=== PATIENT | male | born 1950 | race Caucasian/White ===

== ENCOUNTER → 2016-09-30 | Outpatient (CLI) | payer MEDICARE ==
--- NOTE | 2016-10-01 10:55 | ECHOF ---
Referral Reason:I95.1Orthostatic hypotension, R60.0 Edema MEASUREMENTS -------- HEIGHT: 170.2 cm WEIGHT: 83.9 kg BP: 183/107 IVSd: 1.1 cm (0.6 - 1.1) LVIDd: 4.4 cm (3.9 - 5.3) LVPWd: 1.3 cm (0.6 - 1.1) IVSs: 1.5 cm LVIDs: 2.0 cm LVPWs: 1.9 cm LAESV Index (A-L): 43.53 ml/m Ao Diam: 3.5 cm (2.0 - 3.7) AV Cusp: 2.2 cm (1.5 - 2.6) LA Diam: 4.1 cm (2.7 - 3.8) MV EXCURSION: 20.477 mm (> 18.000) MV EF SLOPE: 277 mm/s (70 - 150) EPSS: 0.3 cm MV E Gabe: 1.17 m/s MV DecT: 195 ms MV A Gabe: 0.24 m/s MV E/A Ratio: 4.88 RAP: 5.00 mmHg RVSP: 35.15 mmHg FINDINGS -------- Sinus rhythm with extra systolic beats. This was a technically good study. There is mild concentric left ventricular hypertrophy. Overall left ventricular systolic function is normal with, an EF between 55 - 60 %. The right ventricle is normal in size and function. LA is severely dilated >40 ml/m2 RA appears enlarged. Aortic valve is trileaflet and is mildly thickened. The mitral valve leaflets are mildly thickened. Mild mitral regurgitation is present. [id number]-[id number] tricuspid regurgitation present. The right ventricular systolic pressure, as measured by Doppler, is 35.15mmHg. Pulmonic valve appears structurally normal. The aortic root size is normal. The pericardium is normal. CONCLUSIONS -------- 1. Sinus rhythm with extra systolic beats. 2. Mild mitral regurgitation is present. 3. Rwhk-si-[id number] tricuspid regurgitation present. 4. The right ventricular systolic pressure, as measured by Doppler, is 35.15mmHg. 5. Pulmonic valve appears structurally normal. 6. The aortic root size is normal. 7. The pericardium is normal. 8. This was a technically good study. 9. There is mild concentric left ventricular hypertrophy. 10. Overall left ventricular systolic function is normal with, an EF between 55 - 60 %. 11. The right ventricle is normal in size and function. 12. LA is severely dilated >40 ml/m2 13. RA appears enlarged. 14. Aortic valve is trileaflet and is mildly thickened. 15. The mitral valve leaflets are mildly thickened. MANAGER MAIL: Rosalind Heredia RDCS
== END | disposition home or self-care (01) ==
LOC: RADECHMAIN 14:34
PROVIDERS: ATTEND Family Medicine
DX: I08.1 Rheumatic disorders of both mitral and tricuspid valves (principal); I95.1 Orthostatic hypotension
CPT/HCPCS: 93306

== ENCOUNTER → 2017-08-17 | Day surgery (SDC) | payer MEDICARE ==
[2017-08-11 15:08] VITALS: BMI 29.0
[~2017-08-17] MED LIST: ATENOLOL 25 MG TAB PO STA; LACTATED RINGERS 1,000 ML IV SCH; LIDOCAINE 1% 20 ML VIAL (10MG/ML) FOR IV START INTRADERMA PRN; MIDAZOLAM 2 MG/2 ML VIAL IV PRN; PROPOFOL 10 MG/ML 20 ML VIAL IV ONE; SODIUM CHLORIDE 0.9% 1,000 ML IV SCH; SODIUM CHLORIDE 0.9% 500 ML IV ONE; SPIRONOLACTONE 25 MG TAB PO STA
[2017-08-17 06:25] VITALS: TEMP 97.8
[2017-08-17 06:51] LABS: Calcium 9.3 mg/dL (8.4-10.2); Potassium 4.1 mmol/L (3.5-5.1)
--- NOTE | 2017-08-17 07:35 | P.PCN ---
Date of Procedure: 08/17/17 Preoperative Diagnosis: Persistent atrial fibrillation Postoperative Diagnosis: Unsuccessful cardioversion Procedure(s) Performed: Cardioversion Description of Procedure: This is a 66-year-old gentleman with history of diastolic CHF and persistent atrial fibrillation. Patient was adequately anticoagulated and was brought in for elective cardioversion. Patient was prepped and draped in the usual fashion. He was given IV sedation by department of anesthesia. Single shocks of 200 followed by 300 and followed with 360 J was applied with anterior posterior paddles. Patient remained in atrial fibrillation. Final impression: #1. Unsuccessful cardioversion. #2. No complications. Plan: Patient be discharged home later today. Patient will continue home medications. We'll may try to treat him with amiodarone and then at try cardioversion in couple weeks
[2017-08-17 08:24] VITALS: RESP 18
[2017-08-17 10:40] VITALS: BP 148/98; PULSE 88
== END | disposition home or self-care (01) ==
LOC: CATHCVL 05:40
PROVIDERS: ATTEND Internal Medicine Cardiovascular Disease
DX: I48.1 Persistent atrial fibrillation (principal); Z79.01 Long term (current) use of anticoagulants; E78.5 Hyperlipidemia, unspecified; I50.32 Chronic diastolic (congestive) heart failure; Z82.49 Family history of ischemic heart disease and other diseases of the circulatory system; Z79.1 Long term (current) use of non-steroidal anti-inflammatories (NSAID); Z79.899 Other long term (current) drug therapy
CPT/HCPCS: 93005; 92960; 80048; J2704

== ENCOUNTER → 2019-04-03 | Outpatient (CLI) | payer MEDICARE ==
--- NOTE | 2019-04-03 13:44 | CT ---
EXAMINATION TYPE: CT lumbar spine wo con DATE OF EXAM: 04/03/2019 COMPARISON: None HISTORY: Leg weakness and low back pain x [address] DLP: 541.[address] of the lumbar spine was performed. Bone and soft tissue window settings are submitted as well as coronal and sagittal reconstructions. L1-L2: Moderate to severe degenerative disc space narrowing. Circumferential disc bulge greatest post eriorly. Effacement ventral thecal sac with borderline central stenosis suggested. Bilateral lateral recess stenosis. Bilateral foraminal encroachment. L2-L3: Moderate to severe degenerative disc space narrowing. Circumferential disc bulge greatest post eriorly. Effacement ventral thecal sac with mild central stenosis suggested. Bilateral lateral recess stenosis. Bilateral foraminal encroachment. L3-L4: Moderate to severe degenerative disc space narrowing. Circumferential disc bulge greatest post eriorly. Effacement ventral thecal sac with mild central stenosis suggested. Bilateral lateral recess stenosis. Bilateral foraminal encroachment. L4-L5: Severe disc desiccation with vacuum disc. Endplate sclerosis. Posterior disc bulging with enca psulating spur resulting in disc endplate complex. There is a severe central stenosis at this level. Bilateral foraminal encroachment with facet joint arthropathy. L5-S1: Moderate disc desiccation. Posterior disc bulge with bilateral lateral recess stenosis. Bilate ral foraminal encroachment with facet joint arthropathy. No paraspinal masses are identified. Lumbar segments are free if fracture. Curvature noted convex to the left. IMPRESSION: 1. Bilevel degenerative disc disease with central stenosis and foraminal encroachment as outlined abo
== END | disposition home or self-care (01) ==
LOC: RADCTMAIN 11:44
PROVIDERS: ATTEND Family Medicine
DX: M48.061 Spinal stenosis, lumbar region without neurogenic claudication (principal); M51.36 Other intervertebral disc degeneration, lumbar region
CPT/HCPCS: 72131

== ENCOUNTER 2019-04-23 10:05 | Inpatient (IN) | payer MEDICARE ==
[2019-04-23] MEDS ORDERED: DILTIAZEM DRIP BOLUS FROM BAG 1 MG SOLN IV ONE (10:20)
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
[2019-04-23] MEDS ORDERED: KETOROLAC 60 MG/2 ML VIAL IVP STA (10:34)
[2019-04-23 10:44] LABS: Basophils # (A) 0.3 k/uL (0-0.2); Basophils % (A) 1 %; Eosinophils # (A) 0.4 k/uL (0-0.7); Eosinophils % (A) 2 %; HCT 31.4 % (39.0-53.0); HGB 9.7 gm/dL (13.0-17.5); Hypochromasia Moderate; Lymphocytes % (A) 4 %; MCH 28.7 pg (25.0-35.0); MCHC 30.8 g/dL (31.0-37.0); Mean Platelet Volume 7.7; Monocytes % (A) 4 %; Neutrophils # (A) 22.9 k/uL (1.3-7.7); Neutrophils % (A) 89 %; Platelet Count 396 k/uL (150-450); RBC 3.38 m/uL (4.30-5.90); RDW 14.8 % (11.5-15.5); WBC 25.7 k/uL (3.8-10.6)
--- NOTE | 2019-04-23 10:50 | XR ---
EXAMINATION TYPE: XR chest 2V DATE OF EXAM: 04/23/2019 COMPARISON: Correlation CT 02/20/2014 HISTORY: 68-year-old male with chest pain TECHNIQUE: PA and lateral views FINDINGS: Heart normal size. Mild elongation thoracic aorta. Mild interstitial prominence. Small right effusion with patchy right basilar opacity. Some nodular density at the left base. IMPRESSION: Mild interstitial prominence with small right effusion and adjacent atelectasis and/or consolidation. Correlate for possible mild CHF as an etiology versus underlying right basilar infiltrate. Chronic nodule at the left base was present back in 2013 suggesting a benign etiology.
[2019-04-23 10:58] LABS: Albumin 3.5 g/dL (3.5-5.0); Calcium 8.8 mg/dL (8.4-10.2); Magnesium 1.9 mg/dL (1.6-2.3); Potassium 4.2 mmol/L (3.5-5.1); Total Bilirubin 0.8 mg/dL (0.2-1.3); Total Protein 6.5 g/dL (6.3-8.2)
[2019-04-23] MEDS: DILTIAZEM 125 MG in SODIUM CHLORIDE 0.9% 100 ML IV SCH (10:59)
[2019-04-23 11:05] LABS: D-Dimer 0.5 mg/L FEU (<0.60); INR 1.1 (<1.2); Partial Thromboplastin Time 25.6 sec (22.0-30.0)
[2019-04-23] MEDS ORDERED: AZITHROMYCIN 500 MG in SODIUM CHLORIDE 0.9% 250 ML IVPB STA (11:16)
[2019-04-23] MEDS ORDERED: PNEUMONIA PROTOCOL UTILIZED 1 EACH MISC PO PRN (11:16)
[2019-04-23] MEDS ORDERED: SODIUM CHLORIDE 0.9% 1,000 ML IV ONE (11:18)
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
[2019-04-23] MEDS: RIVAROXABAN 20 MG TAB PO SCH (18:24)
[2019-04-23] MEDS: SPIRONOLACTONE 25 MG TAB PO SCH (20:15)
[2019-04-23] MEDS: HYDROcodone/APAP 7.5-325MG 1 EACH TAB PO PRN (20:15)
[2019-04-23] MEDS: PRAVASTATIN SODIUM 20 MG TAB PO SCH (20:15)
[2019-04-23] MEDS: QUEtiapine 100 MG TAB PO SCH (20:15)
[2019-04-23] MEDS ORDERED: ATENOLOL 25 MG TAB PO SCH (21:00)
[2019-04-23] MEDS: ACETAMINOPHEN TAB 500 MG TAB PO SCH (22:41)
[2019-04-23] MEDS: diphenhydrAMINE 50 MG CAP PO SCH (22:42)
[2019-04-23] MEDS: hydrOXYzine HCL 25 MG TAB PO SCH (22:42)
[2019-04-24] MEDS: BENZONATATE 100 MG CAP PO PRN ×3 (00:50→22:32)
[2019-04-24] MEDS: KETOROLAC 30 MG/ML 1 ML VIAL IVP PRN ×4 (00:50→20:00)
[2019-04-24] MEDS: HYDROcodone/APAP 7.5-325MG 1 EACH TAB PO PRN ×2 (05:00→19:03)
[2019-04-24] MEDS: PANTOPRAZOLE 40 MG TABLET PO SCH (06:37)
[2019-04-24] MEDS: DILTIAZEM 125 MG in SODIUM CHLORIDE 0.9% 100 ML IV SCH (07:02)
[2019-04-24] MEDS ORDERED: FUROSEMIDE 10 MG/ML 4 ML VIAL IV STA (08:11)
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
[2019-04-24] MEDS: ATENOLOL 50 MG TAB PO SCH ×2 (08:31→20:00)
[2019-04-24] MEDS: AZITHROMYCIN 500 MG TAB PO SCH (08:31)
[2019-04-24] MEDS: MULTIVITAMINS, THERA 1 EACH TAB PO SCH (08:31)
[2019-04-24] MEDS: SPIRONOLACTONE 25 MG TAB PO SCH ×2 (08:31→20:00)
[2019-04-24] MEDS: predniSONE 10 MG TAB PO SCH (08:31)
--- NOTE | 2019-04-24 10:34 | XR ---
EXAMINATION TYPE: XR chest 2V DATE OF EXAM: 04/24/2019 COMPARISON: 04/23/2019 HISTORY: 68-year-old male with chest pain TECHNIQUE: PA and lateral views FINDINGS: Heart normal size. Aorta and pulmonary vasculature within normal limits. Continued small right effusi on with a posterior and basilar opacity. Stable left basilar pulmonary nodule. IMPRESSION: Continued small right effusion with right basilar atelectasis and/or consolidation. Stable, chronic nodule at the left base back to 2014 compatible with a benign etiology.
--- NOTE | 2019-04-24 12:51 | ECHOF ---
Referral Reason:afib MEASUREMENTS -------- HEIGHT: 170.2 cm WEIGHT: 83.0 kg BP: 119/80 IVSd: 1.1 cm (0.6 - 1.1) LVIDd: 4.5 cm (3.9 - 5.3) LVPWd: 1.2 cm (0.6 - 1.1) IVSs: 1.7 cm LVIDs: 2.7 cm LVPWs: 1.6 cm LA Diam: 4.2 cm (2.7 - 3.8) RVIDd: 2.8 cm (< 3.3) LAESV Index (A-L): 38.21 ml/m Ao Diam: 3.3 cm (2.0 - 3.7) AV Cusp: 2.2 cm (1.5 - 2.6) EPSS: 0.5 cm RAP: 5.00 mmHg RVSP: 30.27 mmHg MV EF SLOPE: 191.20 mm/s (70 - 150) MV EXCURSION: 17.70 mm (> 18.000) FINDINGS -------- Atrial fibrillation. This was a technically adequate study. The left ventricular size is normal. There is borderline concentric left ventricular hypertrophy. Overall left ventricular systolic function is normal with, an EF between 60 - 65 %. The right ventricle is normal in size. LA is moderately dilated 34-39 ml/m2 The right atrium is normal in size. Interatrial and interventricular septum intact. There is mild aortic valve sclerosis. The mitral valve leaflets are mildly thickened. Mild mitral regurgitation is present. Mild tricuspid regurgitation present. Right ventricular systolic pressure is normal at < 35 mmHg. There is no pulmonic regurgitation present. The aortic root size is normal. Normal inferior vena cava with normal inspiratory collapse consistent with estimated right atrial pre ssure of 5 mmHg. The inferior vena cava is mildly dilated. There is no pericardial effusion. CONCLUSIONS -------- 1. Atrial fibrillation. 2. This was a technically adequate study. 3. The left ventricular size is normal. 4. There is borderline concentric left ventricular hypertrophy. 5. Overall left ventricular systolic function is normal with, an EF between 60 - 65 %. 6. The right ventricle is normal in size. 7. LA is moderately dilated 34-39 ml/m2 8. The right atrium is normal in size. 9. Interatrial and interventricular septum intact. 10. There is mild aortic valve sclerosis. 11. The mitral valve leaflets are mildly thickened. 12. Mild mitral regurgitation is present. 13. Mild tricuspid regurgitation present. 14. Right ventricular systolic pressure is normal at < 35 mmHg. 15. There is no pulmonic regurgitation present. 16. The aortic root size is normal. 17. Normal inferior vena cava with normal inspiratory collapse consistent with estimated right atrial pressure of 5 mmHg. 18. The inferior vena cava is mildly dilated. 19. There is no pericardial effusion. PROSTHET[employer]IDES TEACHER: Bridget Jacome RDCS
[2019-04-24] MEDS: RIVAROXABAN 20 MG TAB PO SCH (17:03)
[2019-04-24] MEDS: PRAVASTATIN SODIUM 20 MG TAB PO SCH (20:00)
[2019-04-24] MEDS: hydrOXYzine HCL 25 MG TAB PO SCH (22:31)
[2019-04-24] MEDS: ACETAMINOPHEN TAB 500 MG TAB PO SCH (22:31)
[2019-04-24] MEDS: diphenhydrAMINE 50 MG CAP PO SCH (22:31)
[2019-04-24] MEDS: QUEtiapine 100 MG TAB PO SCH (22:32)
[2019-04-25] MEDS: KETOROLAC 30 MG/ML 1 ML VIAL IVP PRN ×4 (04:17→22:47)
[2019-04-25] MEDS: PANTOPRAZOLE 40 MG TABLET PO SCH (06:10)
[2019-04-25] MEDS: AZITHROMYCIN 500 MG TAB PO SCH (07:56)
[2019-04-25] MEDS: MULTIVITAMINS, THERA 1 EACH TAB PO SCH (07:56)
[2019-04-25] MEDS: predniSONE 10 MG TAB PO SCH (07:56)
[2019-04-25] MEDS: ATENOLOL 50 MG TAB PO SCH ×2 (07:56→22:46)
[2019-04-25] MEDS: SPIRONOLACTONE 25 MG TAB PO SCH (07:56)
[2019-04-25 09:02] LABS: Basophils % (A) 0 %; Eosinophils # (A) 0.2 k/uL (0-0.7); Eosinophils % (A) 1 %; HCT 27.2 % (39.0-53.0); HGB 8.7 gm/dL (13.0-17.5); Hypochromasia Slight; Lymphocytes # (A) 1.2 k/uL (1.0-4.8); Lymphocytes % (A) 6 %; MCH 29.3 pg (25.0-35.0); MCHC 31.9 g/dL (31.0-37.0); MCV 91.7 fL (80.0-100.0); Mean Platelet Volume 8.1; Monocytes # (A) 1.1 k/uL (0-1.0); Monocytes % (A) 5 %; Neutrophils % (A) 87 %; Platelet Count 356 k/uL (150-450); RBC 2.97 m/uL (4.30-5.90); RDW 14.8 % (11.5-15.5); WBC 20.7 k/uL (3.8-10.6)
[2019-04-25 09:12] LABS: Albumin 2.9 g/dL (3.5-5.0); Calcium 8.5 mg/dL (8.4-10.2); Total Bilirubin 0.7 mg/dL (0.2-1.3); Total Protein 5.7 g/dL (6.3-8.2)
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
--- NOTE | 2019-04-25 13:40 | P.PN ---
Subjective Progress Note Date: 04/24/19 Principal diagnosis: A. fib with rapid rapid ventricular response Acute exacerbation of diastolic heart failure Right lower lobe pneumonia Status post splenectomy 04/24/2019, patient seen eval examined during the rounds labs reviewed medications reviewed, chest pain and shortness of breath has improved, patient has cough with sputum production, patient has been on broad-spectrum antibiotics labs reviewed medications reviewed This is a 68-year-old male who presents emergency Department with a past medical history significant for atrial fibrillation. Patient is on eliquis. Patient is status post splenectomy. Patient states since Tuesday after he coughed he's been having some right-sided chest pain is very sharp in nature. Patient states movement definitely makes it worse and coughing definitely makes it worse per patient denies any shortness of breath or difficulty breathing. Patient denies any fever chills. Patient denies any abdominal pain. Patient has nausea vomiting diarrhea. Patient denies any headache patient denies numbness weakness. Patient has any back pain. Patient denies any lightheadedness or dizziness. Objective - Vital Signs Vital signs: Vital Signs Temp 98.0 F 04/24/19 08:00 Pulse 102 H 04/24/19 12:00 Resp 20 04/24/19 12:00 BP 118/84 04/24/19 12:00 Pulse Ox 97 04/24/19 12:00 Intake & Output 04/23/19 04/24/19 04/24/19 18:59 06:59 18:59 Intake Total 120 220.25 Output Total 180 Balance 120 -180 220.25 Weight 74.843 kg 83.1 kg Intake: Intake, IV Titration 100.25 Amount Diltiazem 125 mg In 100.25 Sodium Chloride 0.9% 100 ml @ 5 MG/HR 5 mls/hr IV .Q24H [facility] Rx#:[id number] Oral 120 120 Output: Urine 180 Other: Voiding Method Toilet # Voids 1 1 1 # Bowel Movements 1 0 - Constitutional General appearance: Present: average body habitus, cooperative, disheveled - EENT Eyes: Present: EOMI, PERRLA - Neck Carotids: bilateral: upstroke normal Thyroid: bilateral: normal size - Respiratory Respiratory: right: rales, bilateral: diminished - Cardiovascular Rhythm: regular Heart sounds: normal: S1, S2 - Integumentary Integumentary Comment(s): +3 bilateral edema - Neurologic Neurologic: Present: CNII-XII intact - Musculoskeletal Musculoskeletal: Present: gait normal, generalized weakness, strength equal bilaterally - Labs CBC & Chem 7: 04/25/19 08:45 04/25/19 08:45 Labs: Abnormal Lab Results - Last 24 Hours (Table) 04/23/19 Range/Units 15:15 Plasma Lactic Acid Russ 3.2 H* (0.7-2.0) mmol/L Microbiology - Last 24 Hours (Table) 04/23/19 11:15 Blood Culture - Preliminary Blood No Growth after 24 hours 04/23/19 20:48 Gram Stain - Preliminary Sputum Sputum Culture - Preliminary - Imaging and Cardiology Chest x-ray: report reviewed, image reviewed (Finding as noted above) Assessment and Plan Assessment: A. fib with rapid rapid ventricular response Acute exacerbation of diastolic heart failure Right lower lobe pneumonia Status post splenectomy Sepsis due to pneumonia Plan: Antibiotics IV Cardiology consultation and recommendation results reviewed Resume home medications Further plan of care as per clinical response of the patient Time with Patient: Greater than 30
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
[2019-04-25] MEDS: RIVAROXABAN 20 MG TAB PO SCH (16:11)
[2019-04-25] MEDS: BENZONATATE 100 MG CAP PO PRN (16:11)
[2019-04-25] MEDS: SODIUM CHLORIDE 0.9% 1,000 ML IV SCH (16:11)
[2019-04-25] MEDS: QUEtiapine 100 MG TAB PO SCH (22:46)
[2019-04-25] MEDS: PRAVASTATIN SODIUM 20 MG TAB PO SCH (22:46)
[2019-04-25] MEDS: diphenhydrAMINE 50 MG CAP PO SCH (22:46)
[2019-04-25] MEDS: ACETAMINOPHEN TAB 500 MG TAB PO SCH (22:47)
[2019-04-25] MEDS: hydrOXYzine HCL 25 MG TAB PO SCH (23:01)
[2019-04-26] MEDS: SODIUM CHLORIDE 0.9% 1,000 ML IV SCH ×2 (03:18→20:31)
[2019-04-26] MEDS: BENZONATATE 100 MG CAP PO PRN ×2 (03:18→17:06)
[2019-04-26] MEDS: KETOROLAC 30 MG/ML 1 ML VIAL IVP PRN (05:15)
[2019-04-26] MEDS: PANTOPRAZOLE 40 MG TABLET PO SCH (06:06)
[2019-04-26 06:25] LABS: Basophils % (A) 0 %; Eosinophils # (A) 0.1 k/uL (0-0.7); Eosinophils % (A) 1 %; HCT 25.5 % (39.0-53.0); HGB 7.9 gm/dL (13.0-17.5); Hypochromasia Slight; Lymphocytes # (A) 1.5 k/uL (1.0-4.8); Lymphocytes % (A) 8 %; MCH 28.4 pg (25.0-35.0); MCHC 31.1 g/dL (31.0-37.0); MCV 91.4 fL (80.0-100.0); Mean Platelet Volume 7.9; Monocytes # (A) 1.1 k/uL (0-1.0); Monocytes % (A) 6 %; Neutrophils # (A) 15.2 k/uL (1.3-7.7); Neutrophils % (A) 84 %; Platelet Count 352 k/uL (150-450); RBC 2.79 m/uL (4.30-5.90); RDW 14.7 % (11.5-15.5); WBC 18.1 k/uL (3.8-10.6)
[2019-04-26 06:38] LABS: Albumin 2.7 g/dL (3.5-5.0); Calcium 8.2 mg/dL (8.4-10.2); Potassium 4.1 mmol/L (3.5-5.1); Total Bilirubin 0.5 mg/dL (0.2-1.3); Total Protein 5.5 g/dL (6.3-8.2)
[2019-04-26] MEDS: MULTIVITAMINS, THERA 1 EACH TAB PO SCH (08:50)
[2019-04-26] MEDS: ATENOLOL 50 MG TAB PO SCH (08:51)
[2019-04-26] MEDS: AZITHROMYCIN 500 MG TAB PO SCH (08:51)
[2019-04-26] MEDS: predniSONE 10 MG TAB PO SCH (08:51)
[2019-04-26] MEDS: HYDROcodone/APAP 7.5-325MG 1 EACH TAB PO PRN ×2 (08:52→20:34)
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
[2019-04-26 16:02] LABS: Ferritin 77.6 ng/mL (22.0-322.0)
[2019-04-26 16:16] LABS: % Iron Saturation 5.93 (15.00-50.00)
[2019-04-26] MEDS: METOPROLOL TARTRATE 50 MG TAB PO SCH ×3 (16:59→20:40)
[2019-04-26] MEDS: RIVAROXABAN 20 MG TAB PO SCH (17:06)
[2019-04-26 18:50] LABS: Folate, Serum 10.1 ng/mL
[2019-04-26] MEDS: hydrOXYzine HCL 25 MG TAB PO SCH (20:31)
[2019-04-26] MEDS: guaiFENesin 600 MG TABLET.ER PO PRN (20:31)
[2019-04-26] MEDS: QUEtiapine 100 MG TAB PO SCH (20:33)
[2019-04-26] MEDS: ACETAMINOPHEN TAB 500 MG TAB PO SCH (20:33)
[2019-04-26] MEDS: PRAVASTATIN SODIUM 20 MG TAB PO SCH (20:33)
[2019-04-26] MEDS: diphenhydrAMINE 50 MG CAP PO SCH (20:33)
[2019-04-27] MEDS: PANTOPRAZOLE 40 MG TABLET PO SCH (06:15)
[2019-04-27] MEDS: SODIUM CHLORIDE 0.9% 1,000 ML IV SCH (06:17)
[2019-04-27 06:21] LABS: Basophils % (A) 0 %; Eosinophils # (A) 0.1 k/uL (0-0.7); Eosinophils % (A) 1 %; HCT 24.8 % (39.0-53.0); HGB 7.7 gm/dL (13.0-17.5); Hypochromasia Moderate; Lymphocytes # (A) 1.8 k/uL (1.0-4.8); Lymphocytes % (A) 11 %; MCH 28.3 pg (25.0-35.0); MCHC 30.9 g/dL (31.0-37.0); MCV 91.5 fL (80.0-100.0); Mean Platelet Volume 7.6; Monocytes % (A) 6 %; Neutrophils # (A) 12.4 k/uL (1.3-7.7); Neutrophils % (A) 79 %; Platelet Count 388 k/uL (150-450); RBC 2.71 m/uL (4.30-5.90); RDW 14.6 % (11.5-15.5); WBC 15.6 k/uL (3.8-10.6)
[2019-04-27 06:38] LABS: Albumin 2.5 g/dL (3.5-5.0); Calcium 8.1 mg/dL (8.4-10.2); Potassium 4.4 mmol/L (3.5-5.1); Total Bilirubin 0.4 mg/dL (0.2-1.3); Total Protein 5.2 g/dL (6.3-8.2)
--- NOTE | 2019-04-27 07:19 | XR ---
EXAMINATION TYPE: XR chest 1V portable DATE OF EXAM: 04/27/2019 COMPARISON: 04/24/2019 INDICATION: Pneumonia TECHNIQUE: Single frontal view of the chest is obtained. FINDINGS: The heart size is normal. The pulmonary vasculature is normal. Right basilar infiltrate remains present. Pleural effusion may be present. Findings are slightly wors ened from comparison. Nodular density at the left base is again evident. IMPRESSION: 1. Stable left basilar nodule. 2. Increasing right basilar infiltrate and pleural effusion
[2019-04-27] MEDS: METOPROLOL TARTRATE 50 MG TAB PO SCH ×3 (08:24→21:28)
[2019-04-27] MEDS: AZITHROMYCIN 500 MG TAB PO SCH (08:25)
[2019-04-27] MEDS: KETOROLAC 30 MG/ML 1 ML VIAL IVP PRN ×2 (08:25→15:46)
[2019-04-27] MEDS: BENZONATATE 100 MG CAP PO PRN ×3 (08:25→21:28)
[2019-04-27] MEDS: MULTIVITAMINS, THERA 1 EACH TAB PO SCH (08:25)
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
[2019-04-27] MEDS: NYSTATIN 100,000 UNIT/ML SUSP 500,000 UNIT/5 ML CUP PO SCH ×3 (12:19→21:33)
[2019-04-27] MEDS ORDERED: SODIUM FERRIC GLUCONAT-SUCROSE 125 MG in SODIUM CHLORIDE 0.9% 100 ML IVPB ONE (14:30)
--- NOTE | 2019-04-27 14:41 | P.PN ---
Subjective Progress Note Date: 04/26/19 (Consultation note) Principal diagnosis: A. fib with rapid rapid ventricular response Acute exacerbation of diastolic heart failure Right lower lobe pneumonia Status post splenectomy This is a 68-year-old male who presents emergency Department with a past medical history significant for atrial fibrillation. Patient is on eliquis. Patient is status post splenectomy. Patient states since Tuesday after he coughed he's been having some right-sided chest pain is very sharp in nature. Patient states movement definitely makes it worse and coughing definitely makes it worse per patient denies any shortness of breath or difficulty breathing. Patient denies any fever chills. Patient denies any abdominal pain. Patient has nausea vomiting diarrhea. Patient denies any headache patient denies numbness weakness. Patient has any back pain. Patient denies any lightheadedness or dizziness. His repeat chest x-ray shows right basal infiltrate along with effusion slightly progressive worsening is seen along with nodular density in the left base Ammann we'll repeat another chest x-ray tomorrow Objective - Vital Signs Vital signs: Vital Signs Temp 98.2 F 04/26/19 08:00 Pulse 109 H 04/26/19 15:59 Resp 18 04/26/19 15:59 BP 111/82 04/26/19 15:59 Pulse Ox 97 04/26/19 15:59 Intake & Output 04/25/19 04/26/19 04/26/19 18:59 06:59 18:59 Intake Total 1110 960 957 Balance 1110 960 957 Weight 84.7 kg 84.7 kg Intake: IV 30 Invasive Line 1 30 Intake, IV Titration 600 Amount Sodium Chloride 0.9% 1, 600 000 ml @ 75 mls/hr IV . [id number] [facility] Rx#:[id number] Oral 1080 360 957 Other: Voiding Method Toilet # Voids 3 1 3 - Constitutional General appearance: Present: average body habitus, cooperative, disheveled - EENT Eyes: Present: abnormal pupil, EOMI, PERRLA, normal appearance Ears: bilateral: normal - Neck Carotids: bilateral: upstroke normal Thyroid: bilateral: normal size - Respiratory Respiratory: bilateral: diminished - Cardiovascular Rhythm: regular Heart sounds: normal: S1, S2 - Gastrointestinal General gastrointestinal: Present: normal bowel sounds - Neurologic Neurologic: Present: CNII-XII intact - Musculoskeletal Musculoskeletal: Present: gait normal, generalized weakness, strength equal bilaterally - Psychiatric Psychiatric: Present: A&O x's 3, appropriate affect, intact judgment & insight - Labs CBC & Chem 7: 04/27/19 05:32 04/27/19 05:32 Labs: Abnormal Lab Results - Last 24 Hours (Table) 04/26/19 04/26/19 Range/Units 05:41 05:41 WBC 18.1 H (3.8-10.6) k/uL RBC 2.79 L (4.30-5.90) m/uL Hgb 7.9 L (13.0-17.5) gm/dL Hct 25.5 L (39.0-53.0) % Neutrophils # 15.2 H (1.3-7.7) k/uL Monocytes # 1.1 H (0-1.0) k/uL Sodium 132 L (137-145) mmol/L Carbon Dioxide 20 L (22-30) mmol/L BUN 38 H (9-20) mg/dL Creatinine 1.94 H (0.66-1.25) mg/dL Calcium 8.2 L (8.4-10.2) mg/dL Total Protein 5.5 L (6.3-8.2) g/dL Albumin 2.7 L (3.5-5.0) g/dL Microbiology - Last 24 Hours (Table) 04/23/19 11:15 Blood Culture - Preliminary Blood No Growth after 72 hours 04/23/19 20:48 Gram Stain - Preliminary Sputum Sputum Culture - Preliminary Yeast species Assessment and Plan Assessment: A. fib with rapid rapid ventricular response Acute exacerbation of diastolic heart failure Right lower lobe pneumonia Status post splenectomy Sepsis due to pneumonia Plan: Repeat chest x-ray tomorrow Antibiotics IV Cardiology consultation and recommendation results reviewed Resume home medications Further plan of care as per clinical response of the patient Time with Patient: Greater than 30
--- NOTE | 2019-04-27 14:50 | P.PN ---
Subjective Progress Note Date: 04/27/19 Principal diagnosis: Pleural effusion A. fib with rapid rapid ventricular response Acute exacerbation of diastolic heart failure Right lower lobe pneumonia Status post splenectomy 04/27/2019, patient seen eval examined during the rounds chest x-ray from today reviewed slight worsening of pleural effusion has seen, patient has persistent infiltrate in the right lower lobe some reticular density in the left lower lobe is seen as well, patient denies any chest pain intermittent cough is present, white cell count is slowly improving, blood cultures no growth so far, given th at patient has a significant history of splenectomy would recommend to continue IV antibiotics, would give a dose of vancomycin as well, observe renal functions closely This is a 68-year-old male who presents emergency Department with a past medical history significant for atrial fibrillation. Patient is on eliquis. Patient is status post splenectomy. Patient states since Tuesday after he coughed he's been having some right-sided chest pain is very sharp in nature. Patient states movement definitely makes it worse and coughing definitely makes it worse per patient denies any shortness of breath or difficulty breathing. Patient denies any fever chills. Patient denies any abdominal pain. Patient has nausea vomiting diarrhea. Patient denies any headache patient denies numbness weaknes s. Patient has any back pain. Patient denies any lightheadedness or dizziness. His repeat chest x-ray shows right basal infiltrate along with effusion slightly progressive worsening is seen along with nodular density in the left base Ammann we'll repeat another chest x-ray tomorrow Objective - Vital Signs Vital signs: Vital Signs Temp 98.7 F 04/27/19 08:00 Pulse 111 H 04/27/19 12:45 Resp 20 04/27/19 12:45 BP 123/87 04/27/19 12:45 Pulse Ox 95 04/27/19 12:45 Intake & Output 04/26/19 04/27/19 04/27/19 18:59 06:59 18:59 Intake Total 957 840 236 Output Total 225 Balance 957 840 11 Weight 84.7 kg 86.6 kg Intake: Oral 957 840 236 Output: Urine 225 Other: # Voids 3 2 - Exam - Constitutional General appearance: Present: average body habitus, cooperative, disheveled - EENT Eyes: Present: abnormal pupil, EOMI, PERRLA, normal appearance Ears: bilateral: normal - Neck Carotids: bilateral: upstroke normal Thyroid: bilateral: normal size - Respiratory Respiratory: bilateral: diminished - Cardiovascular Rhythm: regular Heart sounds: normal: S1, S2 - Gastrointestinal General gastrointestinal: Present: normal bowel sounds - Neurologic Neurologic: Present: CNII-XII intact - Musculoskeletal Musculoskeletal: Present: gait normal, generalized weakness, strength equal bilaterally - Psychiatric Psychiatric: Present: A&O x's 3, appropriate affect, intact judgment & insight - Labs CBC & Chem 7: 04/27/19 05:32 04/27/19 05:32 Labs: Abnormal Lab Results - Last 24 Hours (Table) 04/26/19 04/27/19 04/27/19 Range/Units 05:41 05:32 05:32 WBC 15.6 H (3.8-10.6) k/uL RBC 2.71 L (4.30-5.90) m/uL Hgb 7.7 L (13.0-17.5) gm/dL Hct 24.8 L (39.0-53.0) % MCHC 30.9 L (31.0-37.0) g/dL Neutrophils # 12.4 H (1.3-7.7) k/uL Sodium 133 L (137-145) mmol/L Carbon Dioxide 20 L (22-30) mmol/L BUN 34 H (9-20) mg/dL Creatinine 1.74 H (0.66-1.25) mg/dL Calcium 8.1 L (8.4-10.2) mg/dL Iron 15 L (65-175) ug/dL % Saturation 5.93 L (15.00-50.00) Total Protein 5.2 L (6.3-8.2) g/dL Albumin 2.5 L (3.5-5.0) g/dL Microbiology - Last 24 Hours (Table) 04/23/19 11:15 Blood Culture - Preliminary Blood No Growth after 96 hours 04/23/19 20:48 Gram Stain - Final Sputum Sputum Culture - Final Aleyda glabrata Assessment and Plan Assessment: A. fib with rapid rapid ventricular response Acute exacerbation of diastolic heart failure Right lower lobe pneumonia Pleural effusion likely related to fluid overload and diastolic heart failure with A. fib Status post splenectomy Sepsis due to pneumonia Plan: Repeat chest x-ray reviewed Antibiotics IV Add IV vancomycin Will make IV to Hep-Lock Cardiology consultation and recommendation results reviewed Resume home medications Further plan of care as per clinical response of the patient Time with Patient: Greater than 30
[2019-04-27] MEDS ORDERED: VANCOMYCIN IV PER PHARMACY 1 EACH MISC MISCELLANE SCH (15:00)
[2019-04-27] MEDS: guaiFENesin 600 MG TABLET.ER PO PRN (15:46)
[2019-04-27] MEDS: VANCOMYCIN 1,500 MG in SODIUM CHLORIDE 0.9% 250 ML IVPB SCH (17:27)
[2019-04-27] MEDS: RIVAROXABAN 20 MG TAB PO SCH (17:28)
[2019-04-27] MEDS: diphenhydrAMINE 50 MG CAP PO SCH (21:26)
[2019-04-27] MEDS: QUEtiapine 100 MG TAB PO SCH (21:27)
[2019-04-27] MEDS: hydrOXYzine HCL 25 MG TAB PO SCH (21:27)
[2019-04-27] MEDS: ACETAMINOPHEN TAB 500 MG TAB PO SCH (21:27)
[2019-04-27] MEDS: FERROUS SULFATE 325 MG TAB PO SCH (21:28)
[2019-04-27] MEDS: PRAVASTATIN SODIUM 20 MG TAB PO SCH (21:28)
[2019-04-27] MEDS: HYDROcodone/APAP 7.5-325MG 1 EACH TAB PO PRN (21:28)
[2019-04-28] MEDS: BENZONATATE 100 MG CAP PO PRN ×3 (04:23→20:18)
[2019-04-28] MEDS: guaiFENesin 600 MG TABLET.ER PO PRN ×2 (04:23→16:21)
[2019-04-28] MEDS: PANTOPRAZOLE 40 MG TABLET PO SCH (06:05)
[2019-04-28] MEDS: VANCOMYCIN 1,500 MG in SODIUM CHLORIDE 0.9% 250 ML IVPB SCH ×2 (06:05→21:48)
[2019-04-28 06:10] LABS: Basophils # (A) 0.1 k/uL (0-0.2); Basophils % (A) 0 %; Eosinophils # (A) 0.1 k/uL (0-0.7); Eosinophils % (A) 1 %; HCT 26.9 % (39.0-53.0); HGB 8.2 gm/dL (13.0-17.5); Hypochromasia Slight; Lymphocytes # (A) 1.7 k/uL (1.0-4.8); Lymphocytes % (A) 10 %; MCH 27.7 pg (25.0-35.0); MCHC 30.4 g/dL (31.0-37.0); Mean Platelet Volume 7.5; Monocytes # (A) 1.3 k/uL (0-1.0); Monocytes % (A) 8 %; Neutrophils # (A) 13.5 k/uL (1.3-7.7); Neutrophils % (A) 79 %; Platelet Count 394 k/uL (150-450); RBC 2.96 m/uL (4.30-5.90); RDW 14.7 % (11.5-15.5); WBC 16.9 k/uL (3.8-10.6)
[2019-04-28] MEDS: HYDROcodone/APAP 7.5-325MG 1 EACH TAB PO PRN ×3 (06:14→18:27)
[2019-04-28 06:21] LABS: Albumin 2.7 g/dL (3.5-5.0); Calcium 8.3 mg/dL (8.4-10.2); Potassium 4.5 mmol/L (3.5-5.1); Total Bilirubin 0.6 mg/dL (0.2-1.3); Total Protein 5.6 g/dL (6.3-8.2)
[2019-04-28] MEDS: FERROUS SULFATE 325 MG TAB PO SCH ×2 (09:05→20:17)
[2019-04-28] MEDS: METOPROLOL TARTRATE 50 MG TAB PO SCH ×3 (09:05→20:17)
[2019-04-28] MEDS: AZITHROMYCIN 500 MG TAB PO SCH (09:05)
[2019-04-28] MEDS: NYSTATIN 100,000 UNIT/ML SUSP 500,000 UNIT/5 ML CUP PO SCH ×5 (09:05→21:48)
[2019-04-28] MEDS: MULTIVITAMINS, THERA 1 EACH TAB PO SCH (09:05)
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
--- NOTE | 2019-04-28 13:45 | CT ---
EXAMINATION TYPE: CT chest wo con DATE OF EXAM: 04/28/2019 COMPARISON: Previous study dated 02/20/2014 HISTORY: Shortness of breath. CT DLP: 411.2 mGycm. Automated Exposure Control for Dose Reduction was Utilized. TECHNIQUE: CT scan of the thorax is performed without IV contrast. FINDINGS: There is a moderate to large right-sided pleural effusion. There is associated atelectasis. There is also some airspace disease in the right middle lobe. There is a noncalcified pulmonary nodu le in the lateral basal segment of the left lower lobe, best seen on image 42. This measures 1.4 x 1. 4 cm. Previously this measured 13 x 11 cm. No other definite parenchymal nodules are seen. There is some shotty mediastinal adenopathy. No enlarged lymph nodes are seen. There is no pericardia l fluid. The heart is not enlarged. There is a small, sliding hiatal hernia present. There are gallstones in the neck of the gallbladder. I suspect this represents 2 stones instead of 1 stone. The remainder the upper abdomen that is visualized is unremarkable. There is degenerative disc disease and hypertrophic spondylosis within the spine. IMPRESSION: 1. INTERVAL DEVELOPMENT OF A MODERATELY LARGE RIGHT-SIDED PLEURAL EFFUSION. 2. SLIGHT GROWTH IN THE SIZE OF THE PATIENT'S BENIGN-APPEARING LEFT PULMONARY NODULE. 3. RIGHT MIDDLE LOBE AIRSPACE DISEASE WHICH MAY REPRESENT ATELECTASIS OR PNEUMONIA. 4. SHOTTY MEDIASTINAL ADENOPATHY WHICH MAY BE REACTIVE. 5. CHOLELITHIASIS. 6. DEGENERATIVE CHANGES WITHIN THE SPINE.
--- NOTE | 2019-04-28 15:46 | PN ---
PROGRESS NOTE DATE OF SERVICE: 04/28/2019 REASON FOR FOLLOWUP: Pneumonia. INTERVAL HISTORY: The patient is currently afebrile. He is still complaining of pain on the right side of the chest. The patient continues to have a cough and is bringing up some sputum. No nausea, no vomiting. No abdominal pain or diarrhea. PHYSICAL EXAMINATION: Blood pressure 125/85 with a pulse of 111, temperature 97.5. He is 97% on room air. General description is an elderly male up in the chair in no distress. RESPIRATORY SYSTEM: Unlabored breathing with decreased breath sounds at the base. No wheeze. HEART: S1, S2. Regular rate and rhythm. ABDOMEN: Soft. No tenderness. LABS: Hemoglobin 8.1, white count 16.9, BUN of 29, creatinine 1.70. DIAGNOSTIC IMPRESSION AND PLAN: 1. Patient with right-sided pneumonia in this patient who continues to have symptoms of right-sided chest pain. CT of the chest has been ordered to better identify the underlying pathology. Will repeat a sputum. The patient is on cefepime and vancomycin; to continue, monitoring clinical course closely. 2. Patient with thrush. To continue nystatin swish and swallow. MMODL / IJN: [id number] /
[2019-04-28] MEDS: RIVAROXABAN 20 MG TAB PO SCH (17:45)
[2019-04-28] MEDS: PRAVASTATIN SODIUM 20 MG TAB PO SCH (20:18)
[2019-04-28] MEDS: ACETAMINOPHEN TAB 500 MG TAB PO SCH (20:18)
[2019-04-28] MEDS: CEFEPIME 2 GM in SODIUM CHLORIDE 0.9% 100 ML IVPB SCH (20:19)
[2019-04-28] MEDS: hydrOXYzine HCL 25 MG TAB PO SCH (21:47)
[2019-04-28] MEDS: diphenhydrAMINE 50 MG CAP PO SCH (21:48)
[2019-04-28] MEDS: QUEtiapine 100 MG TAB PO SCH (21:48)
[2019-04-29] MEDS: HYDROcodone/APAP 7.5-325MG 1 EACH TAB PO PRN ×3 (01:22→16:17)
[2019-04-29 06:16] LABS: Albumin 2.4 g/dL (3.5-5.0); Calcium 8.1 mg/dL (8.4-10.2); Potassium 4.2 mmol/L (3.5-5.1); Total Bilirubin 0.5 mg/dL (0.2-1.3); Total Protein 5.3 g/dL (6.3-8.2)
[2019-04-29] MEDS: PANTOPRAZOLE 40 MG TABLET PO SCH (06:32)
[2019-04-29] MEDS: guaiFENesin 600 MG TABLET.ER PO PRN (06:33)
[2019-04-29] MEDS: BENZONATATE 100 MG CAP PO PRN ×2 (06:33→15:07)
[2019-04-29] MEDS: CEFEPIME 2 GM in SODIUM CHLORIDE 0.9% 100 ML IVPB SCH ×2 (10:21→21:37)
[2019-04-29] MEDS: MULTIVITAMINS, THERA 1 EACH TAB PO SCH (10:22)
[2019-04-29] MEDS: METOPROLOL TARTRATE 50 MG TAB PO SCH ×3 (10:22→21:34)
[2019-04-29] MEDS: FERROUS SULFATE 325 MG TAB PO SCH ×2 (10:22→21:58)
[2019-04-29] MEDS: VERAPAMIL SR 180 MG TABLET.ER PO SCH (10:34)
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
--- NOTE | 2019-04-29 10:47 | P.PN ---
Subjective Progress Note Date: 04/29/19 Principal diagnosis: Pleural effusion A. fib with rapid rapid ventricular response Acute exacerbation of diastolic heart failure Right lower lobe pneumonia Status post splenectomy 04/29/2019, patient seen eval examined during the rounds labs reviewed medications reviewed, remains afebrile with controlled ventricular response patient has been on room air but somewhat short of breath though chest x-ray and computed tomography scan have been reviewed there is moderate pleural effusion the right side has been noted, patient is on anticoagulation I have discussed with RN will stop the anticoagulation today and tomorrow and patient will be scheduled for right-sided thoracentesis, I have ordered ultrasound of the chest as well to look into depth and amount of fluid, blood and urine cultures have been positive for E. coli, repeat blood cultures on have been negative, white cell continued to go down slowly 04/27/2019, patient seen eval examined during the rounds chest x-ray from today reviewed slight worsening of pleural effusion has seen, patient has persistent i nfiltrate in the right lower lobe some reticular density in the left lower lobe is seen as well, patient denies any chest pain intermittent cough is present, white cell count is slowly improving, blood cultures no growth so far, given that patient has a significant history of splenectomy would recommend to continue IV antibiotics, would give a dose of vancomycin as well, observe renal functions closely This is a 68-year-old male who presents emergency Department with a past medical history significant for atrial fibrillation. Patient is on eliquis. Patient is status post splenectomy. Patient states since Tuesday after he coughed he's been having some right-sided chest pain is very sharp in nature. Patient states movement definitely makes it worse and coughing definitely makes it worse per patient denies any shortness of breath or difficulty breathing. Patient denies any fever chills. Patient denies any abdominal pain. Patient has nausea vomiting diarrhea. Patient denies any headache patient denies numbness weakness. Patient has any back pain. Patient denies any lightheadedness or dizziness. His repeat chest x-ray shows right basal infiltrate along with effusion slightly progressive worsening is seen along with nodular density in the left base Ammann we'll repeat another chest x-ray tomorrow Objective - Vital Signs Vital signs: Vital Signs Temp 98 F 04/29/19 04:00 Pulse 105 H 04/29/19 04:00 Resp 18 04/29/19 04:00 BP 121/83 04/29/19 04:00 Pulse Ox 92 L 04/29/19 04:00 Intake & Output 04/28/19 04/29/19 04/29/19 18:59 06:59 18:59 Intake Total 1260 480 Balance 1260 480 Weight 87.5 kg Intake: Intake, IV Titration 300 Amount Vancomycin 1,500 mg In 250 Sodium Chloride 0.9% 250 ml @ 125 mls/hr IVPB Q16H [facility] Rx#:[id number] cefTRIAXone 1 gm In 50 Sodium Chloride 0.9% 50 ml @ 100 mls/hr IVPB Q24HR [facility] Rx#:[id number] Oral 960 480 Other: Voiding Method Toilet # Voids 2 - Exam - Constitutional General appearance: Present: average body habitus, cooperative, disheveled - EENT Eyes: Present: abnormal pupil, EOMI, PERRLA, normal appearance Ears: bilateral: normal - Neck Carotids: bilateral: upstroke normal Thyroid: bilateral: normal size - Respiratory Respiratory: bilateral: diminished more so on the right side compared left side - Cardiovascular Rhythm: regular Heart sounds: normal: S1, S2 - Gastrointestinal General gastrointestinal: Present: normal bowel sounds - Neurologic Neurologic: Present: CNII-XII intact - Musculoskeletal Musculoskeletal: Present: gait normal, generalized weakness, strength equal bilaterally - Psychiatric Psychiatric: Present: A&O x's 3, appropriate affect, intact judgment & insight - Labs CBC & Chem 7: 04/28/19 05:39 04/29/19 05:31 Labs: Abnormal Lab Results - Last 24 Hours (Table) 04/29/19 Range/Units 05:31 Sodium 132 L (137-145) mmol/L Carbon Dioxide 20 L (22-30) mmol/L BUN 22 H (9-20) mg/dL Creatinine 1.38 H (0.66-1.25) mg/dL Glucose 103 H (74-99) mg/dL Calcium 8.1 L (8.4-10.2) mg/dL Total Protein 5.3 L (6.3-8.2) g/dL Albumin 2.4 L (3.5-5.0) g/dL Microbiology - Last 24 Hours (Table) 04/23/19 11:15 Blood Culture - Preliminary Blood No Growth after 120 hours Assessment and Plan Assessment: UTI with E. coli Septicemia/bacteremia with E. coli Developing right-sided pleural effusion mild to moderate A. fib with rapid rapid ventricular response Acute exacerbation of diastolic heart failure Right lower lobe pneumonia Pleural effusion likely related to fluid overload and diastolic heart failure with A. fib Status post splenectomy Sepsis due to pneumonia Plan: Repeat chest x-ray reviewed, computed tomography scan of the chest reviewed Antibiotics IV Stop Xarelto Schedule for ultrasound of the chest and if significant effusion is present would proceed with a right-sided thoracentesis, procedure has been explained to the patient along with risk alternative and complication understood and would like to proceed with that Cardiology consultation and recommendation results reviewed Resume home medications Further plan of care as per clinical response of the patient Time with Patient: Greater than 30
--- NOTE | 2019-04-29 11:42 | US ---
EXAMINATION TYPE: US chest DATE OF EXAM: 04/29/2019 COMPARISON: CLINICAL HISTORY: fluid marking. Bilateral chest TECHNIQUE: Targeted ultrasound of the posterior lower bilateral hemithoraces EXAM MEASUREMENTS: Right Pleural Effusion pocket size: 3.1 cm Left Pleural Effusion pocket size: 0.0 cm Right side NOT marked for possible thoracentesis outside the dept DUE TO SMALL CLEAR FLUID POCKET. I N POSTERIOR RIGHT CHEST, FLUID APPEARS SEPTATED IN LARGE POCKET. Left side NOT marked for possible thoracentesis outside the dept DUE TO NO FLUID VISUALIZED. Pulmonologists are able to review the images in the patient?s EMR. IMPRESSIONS: SMALL RIGHT PLEURAL EFFUSION.
[2019-04-29] MEDS: NYSTATIN 100,000 UNIT/ML SUSP 500,000 UNIT/5 ML CUP PO SCH ×3 (12:26→21:58)
[2019-04-29] MEDS: VANCOMYCIN 1,500 MG in SODIUM CHLORIDE 0.9% 250 ML IVPB SCH (15:07)
--- NOTE | 2019-04-29 16:57 | PN ---
PROGRESS NOTE DATE OF SERVICE: 04/29/2019 REASON FOR FOLLOWUP: Right-sided pneumonia and pleural effusion. INTERVAL HISTORY: The patient is currently afebrile, has been breathing comfortably. Still complaining of pain to the right side of the chest, but no worsening. No nausea. No vomiting. No abdominal pain. No diarrhea. PHYSICAL EXAMINATION: Blood pressure is 109/79 with a pulse of 101, temperature 98. He is 95% on room air. General description is an elderly male up in the chair in no distress. Respiratory system: Unlabored breathing. Decreased breath sounds on the right side. Heart S1, S2. Regular rate and rhythm. Abdomen soft. No tenderness. LABS: BUN of 22, creatinine 1.38. Sputum with Aleyda glabrata. Repeat sputum has been ordered, unfortunately not collected. DIAGNOSTIC IMPRESSION AND PLAN: 1. Patient with right-sided pneumonia with large pleural effusion. Await thoracocentesis for which she will be sent for Gram stain, cultures. Currently on cefepime and vancomycin. We will try to get another sputum to narrow down his antibiotics and continue supportive care. 2. Oral thrush. Continue nystatin swish and swallow. MMODL / IJN: [id number] /
[2019-04-29 18:16] LABS: Glucose,Whole Blood 207 mg/dL (75-99)
[2019-04-29] MEDS ORDERED: IPRATROPIUM-ALBUTEROL 3 ML NEB INHALATION STA (18:25)
[2019-04-29] MEDS: HYDROmorphone 0.5 MG/0.5 ML SYRINGE IVP PRN (18:33)
[2019-04-29 18:42] LABS: Basophils # (A) 0.1 k/uL (0-0.2); Basophils % (A) 0 %; Eosinophils # (A) 0.1 k/uL (0-0.7); Eosinophils % (A) 1 %; HCT 26.1 % (39.0-53.0); HGB 8.1 gm/dL (13.0-17.5); Hypochromasia Moderate; Lymphocytes # (A) 1.1 k/uL (1.0-4.8); Lymphocytes % (A) 5 %; MCH 28.9 pg (25.0-35.0); MCHC 31.1 g/dL (31.0-37.0); MCV 93.1 fL (80.0-100.0); Mean Platelet Volume 8.2; Monocytes # (A) 1.2 k/uL (0-1.0); Monocytes % (A) 6 %; Neutrophils # (A) 17.6 k/uL (1.3-7.7); Neutrophils % (A) 87 %; Platelet Count 416 k/uL (150-450); RDW 15.2 % (11.5-15.5); WBC 20.3 k/uL (3.8-10.6)
--- NOTE | 2019-04-29 18:48 | XR ---
EXAMINATION TYPE: XR chest 1V portable DATE OF EXAM: 04/29/2019 COMPARISON: 04/27/2019 HISTORY: Short of breath TECHNIQUE: FINDINGS: There is airspace consolidation right lower lobe. There is mild pulmonary congestion. Left lung is fairly clear. There are chest leads. Heart appears borderline enlarged. IMPRESSION: Right lower lobe pneumonia increased compared to last exam. No obvious heart failure.
[2019-04-29 19:00] LABS: ABG Base Excess -9.2 mmol/L; ABG HCO3 16 mmol/L (21-25); ABG Oxygen Saturation 96.9 % (94-97); ABG PCO2 25 mmHg (35-45); ABG PO2 97 mmHg (83-108); ABG TCO2 16 mmol/L (19-24); Allen Test Performed? Yes
[2019-04-29 19:08] LABS: Calcium 8.1 mg/dL (8.4-10.2)
[2019-04-29] MEDS ORDERED: ONDANSETRON 4 MG/2 ML VIAL IVP PRN (19:16)
[2019-04-29] MEDS ORDERED: SODIUM CHLORIDE 0.9% 1,000 ML IV ONE (19:28)
[2019-04-29 20:58] LABS: Creatine Kinase MB 2.2 ng/mL (0.0-2.4); Troponin I <0.012 ng/mL (0.000-0.034)
[2019-04-29] MEDS: ACETAMINOPHEN TAB 500 MG TAB PO SCH (21:57)
[2019-04-29] MEDS: PRAVASTATIN SODIUM 20 MG TAB PO SCH (21:58)
[2019-04-29] MEDS: QUEtiapine 100 MG TAB PO SCH (21:58)
[2019-04-29] MEDS: hydrOXYzine HCL 25 MG TAB PO SCH (23:14)
[2019-04-29] MEDS: diphenhydrAMINE 50 MG CAP PO SCH (23:14)
[2019-04-29 23:51] LABS: ALT 97 U/L (4-49); AST 146 U/L (17-59); Amylase <30 U/L (30-110)
[2019-04-30] MEDS ORDERED: METOCLOPRAMIDE 5 MG/ML 2 ML VIAL IVP PRN (01:01)
[2019-04-30 02:18] LABS: Glucose,Whole Blood 177 mg/dL (75-99)
--- NOTE | 2019-04-30 02:27 | CT ---
EXAMINATION TYPE: CT ChestAbdPelvis wo con DATE OF EXAM: 04/30/2019 COMPARISON: HISTORY: Patient presents with elevated liver enzymes. CT DLP: 958.70 mGycm Automated exposure control for dose reduction was used. Multiple axial sections were obtained from the thoracic inlet to the floor the pelvis with no contras t. There is moderate size right pleural effusion. There is right lower lobe consolidation and atelectasi s. Heart is slightly enlarged. There is noncalcified 13 mm nodule in the left lower lobe. There is no pericardial effusion. There is no left-sided pleural fluid. There are few mediastinal peritracheal lymph nodes that measure up to 13 mm. There is irregular large calcified gallstone. Liver shows no focal defect. Spleen is absent. The stom ach appears intact. I see no sign of a pancreatic mass. There is moderate fat stranding around the le ft kidney and a lesser extent the right kidney. There is no hydronephrosis. Ureters are not dilated. Abdominal aorta is atheromatous. There is no retroperitoneal adenopathy. There are surgical clips in the lower anterior abdomen. There is no inguinal hernia. Bladder distends smoothly. There is mild chandra e fluid in the pelvis. There is minimal fluid in the paracolic gutters. There is no evidence of a bow el obstruction. There is some retained fecal material in the right colon. I see no evidence of free a ir. Appendix appears normal. Thoracic and lumbar spine appear intact. Bony pelvis is intact. There is no compression fracture. Hip joints appear intact. IMPRESSION: Moderate size right pleural effusion with right lower lobe consolidation and atelectasis unchanged. T here are a few nonspecific mediastinal lymph nodes. Left lower lobe nodule unchanged. Mild abdominal ascites. No bowel obstruction. Normal appendix. Retroperitoneal fat stranding but no e vidence of renal obstruction. I do not suspect pancreatitis. Extensive lower abdominal subcutaneous edema that is probably not changed compared to last exam.
[2019-04-30 04:15] LABS: Basophils # (A) 0.1 k/uL (0-0.2); Basophils % (A) 0 %; Eosinophils # (A) 0.1 k/uL (0-0.7); Eosinophils % (A) 0 %; HCT 28.2 % (39.0-53.0); HGB 8.6 gm/dL (13.0-17.5); Hypochromasia Marked; Lymphocytes # (A) 1.2 k/uL (1.0-4.8); Lymphocytes % (A) 4 %; MCH 28.6 pg (25.0-35.0); MCHC 30.6 g/dL (31.0-37.0); MCV 93.4 fL (80.0-100.0); Mean Platelet Volume 7.9; Monocytes # (A) 0.8 k/uL (0-1.0); Monocytes % (A) 3 %; Neutrophils % (A) 91 %; Platelet Count 447 k/uL (150-450); RBC 3.02 m/uL (4.30-5.90); RDW 15.1 % (11.5-15.5); WBC 28.5 k/uL (3.8-10.6)
[2019-04-30 04:30] LABS: Calcium 8.3 mg/dL (8.4-10.2); Total Bilirubin 0.8 mg/dL (0.2-1.3)
[2019-04-30 04:33] LABS: Potassium 6.7 mmol/L (3.5-5.1)
[2019-04-30] MEDS ORDERED: HEPARIN SODIUM,PORCINE 5,000 UNIT/ML 1 ML VIAL IV PRN ×2 (05:51→13:40)
[2019-04-30] MEDS ORDERED: HEPARIN SODIUM,PORCINE 5,000 UNIT/ML 1 ML VIAL IV ONE (05:51)
[2019-04-30] MEDS ORDERED: HEPARIN SOD,PORK IN 0.45% NACL 25,000 UNIT in 0.45% NACL 1 250ML.BAG IV SCH ×2 (06:00→13:45)
[2019-04-30] MEDS ORDERED: VANCOMYCIN TROUGH DUE 1 EACH MISC MISCELLANE ONE (06:00)
[2019-04-30] MEDS ORDERED: SODIUM CHLORIDE 0.9% 1,000 ML IV SCH (06:00)
[2019-04-30] MEDS: SODIUM CHLORIDE 0.9% 250 ML IV SCH ×3 (06:03→06:37)
[2019-04-30 06:28] LABS: INR 1.4 (<1.2); Partial Thromboplastin Time 27.2 sec (22.0-30.0); Prothrombin Time 13.5 sec (9.0-12.0)
[2019-04-30] MEDS: PANTOPRAZOLE 40 MG TABLET PO SCH (07:03)
--- NOTE | 2019-04-30 07:08 | P.PN ---
Subjective Progress Note Date: 04/30/19 Principal diagnosis: Long-standing persistent atrial fibrillation This is a very pleasant 68-year-old gentleman with a past medical history significant for long-standing persistent atrial fibrillation as well as chronic kidney disease who was admitted to the hospital with pneumonia. We consulted initially to see the patient for atypical chest discomfort. The workup came in to be unremarkable. We signed off on the patient. Subsequently the patient last night the lobe respiratory distress and he was transferred to intensive care unit. The patient was seen today, April 302019. He stated that he is feeling better. On examination he does have diminished breathing sounds over the right lung base. Computed tomography scan of the chest was performed yesterday and revealed right pleural effusion. Because of that oral anticoagulation was stopped and the patient currently on heparin IV for possible undergoing pleurocentesis. On examination he is in the mattress was bilateral lower extremities edema. Unfortunately the creatinine is worse today and also the potassium is elevated. Initially I was going to start the patient on Lasix IV but I would hold on that in view of his acute renal failure as well as hyperkalemia. I would suggest get nephrology consult to see the patient. Objective - Vital Signs Vital signs: Vital Signs Temp 98.6 F 04/30/19 03:03 Pulse 66 04/30/19 07:00 Resp 10 L 04/30/19 07:00 BP 130/117 04/30/19 07:00 Pulse Ox 97 04/30/19 07:00 Intake & Output 04/29/19 04/30/19 04/30/19 18:59 06:59 18:59 Intake Total 240 301.167 50 Output Total 0 5 Balance 240 301.167 45 Intake: IV 300 50 Sodium Chloride 0.9% 1, 50 50 000 ml @ 50 mls/hr IV . Q20H [facility] Rx#:[id number] Sodium Chloride 0.9% 250 250 ml @ 999 mls/hr IV .Q16M [facility] Rx#:[id number] Intake, IV Titration 1.167 Amount Heparin Sod,Pork in 0.45% 1.167 NaCl 25,000 unit In 0.45 % NaCl 1 250ml.bag @ 11. 43 UNITS/KG/HR 10.001 mls /hr IV .Q24H [facility] Rx#: [id number] Oral 240 Output: Urine 0 5 Other: Voiding Method Toilet Urinal # Voids 1 - Constitutional General appearance: Present: no acute distress - Respiratory Respiratory: right: diminished, left: CTA - Cardiovascular Rhythm: irregularly irregular Heart sounds: normal: S1, S2 - Labs CBC & Chem 7: 04/30/19 03:55 04/30/19 04:42 Labs: Abnormal Lab Results - Last 24 Hours (Table) 04/29/19 04/29/19 04/29/19 Range/Units 18:00 18:14 18:37 WBC 20.3 H (3.8-10.6) k/uL RBC 2.80 L (4.30-5.90) m/uL Hgb 8.1 L (13.0-17.5) gm/dL Hct 26.1 L (39.0-53.0) % MCHC (31.0-37.0) g/dL Neutrophils # 17.6 H (1.3-7.7) k/uL Monocytes # 1.2 H (0-1.0) k/uL PT (9.0-12.0) sec INR (<1.2) ABG pCO2 25 L (35-45) mmHg ABG HCO3 16 L (21-25) mmol/L ABG Total CO2 16 L (19-24) mmol/L Sodium (137-145) mmol/L Potassium (3.5-5.1) mmol/L Carbon Dioxide (22-30) mmol/L BUN (9-20) mg/dL Creatinine (0.66-1.25) mg/dL Glucose (74-99) mg/dL POC Glucose (mg/dL) 207 H (75-99) mg/dL Plasma Lactic Acid Russ (0.7-2.0) mmol/L Calcium (8.4-10.2) mg/dL AST (17-59) U/L ALT (4-49) U/L Total Protein (6.3-8.2) g/dL Albumin (3.5-5.0) g/dL Amylase (30-110) U/L 04/29/19 04/29/19 04/29/19 Range/Units 18:45 18:45 23:26 WBC (3.8-10.6) k/uL RBC (4.30-5.90) m/uL Hgb (13.0-17.5) gm/dL Hct (39.0-53.0) % MCHC (31.0-37.0) g/dL Neutrophils # (1.3-7.7) k/uL Monocytes # (0-1.0) k/uL PT (9.0-12.0) sec INR (<1.2) ABG pCO2 (35-45) mmHg ABG HCO3 (21-25) mmol/L ABG Total CO2 (19-24) mmol/L Sodium 132 L (137-145) mmol/L Potassium (3.5-5.1) mmol/L Carbon Dioxide 18 L (22-30) mmol/L BUN 24 H (9-20) mg/dL Creatinine 2.00 H (0.66-1.25) mg/dL Glucose 190 H (74-99) mg/dL POC Glucose (mg/dL) (75-99) mg/dL Plasma Lactic Acid Russ 3.3 H* 3.4 H* (0.7-2.0) mmol/L Calcium 8.1 L (8.4-10.2) mg/dL AST (17-59) U/L ALT (4-49) U/L Total Protein (6.3-8.2) g/dL Albumin (3.5-5.0) g/dL Amylase (30-110) U/L 04/29/19 04/30/19 04/30/19 Range/Units 23:26 02:17 03:55 WBC (3.8-10.6) k/uL RBC (4.30-5.90) m/uL Hgb (13.0-17.5) gm/dL Hct (39.0-53.0) % MCHC (31.0-37.0) g/dL Neutrophils # (1.3-7.7) k/uL Monocytes # (0-1.0) k/uL PT (9.0-12.0) sec INR (<1.2) ABG pCO2 (35-45) mmHg ABG HCO3 (21-25) mmol/L ABG Total CO2 (19-24) mmol/L Sodium 132 L (137-145) mmol/L Potassium 6.7 H* (3.5-5.1) mmol/L Carbon Dioxide 16 L (22-30) mmol/L BUN 28 H (9-20) mg/dL Creatinine 2.36 H (0.66-1.25) mg/dL Glucose 154 H (74-99) mg/dL POC Glucose (mg/dL) 177 H (75-99) mg/dL Plasma Lactic Acid Russ (0.7-2.0) mmol/L Calcium 8.3 L (8.4-10.2) mg/dL AST 146 H 478 H (17-59) U/L ALT 97 H 259 H (4-49) U/L Total Protein 6.0 L (6.3-8.2) g/dL Albumin 3.0 L (3.5-5.0) g/dL Amylase <30 L (30-110) U/L 04/30/19 04/30/19 04/30/19 Range/Units 03:55 03:55 04:42 WBC 28.5 H (3.8-10.6) k/uL RBC 3.02 L (4.30-5.90) m/uL Hgb 8.6 L (13.0-17.5) gm/dL Hct 28.2 L (39.0-53.0) % MCHC 30.6 L (31.0-37.0) g/dL Neutrophils # 26.0 H (1.3-7.7) k/uL Monocytes # (0-1.0) k/uL PT (9.0-12.0) sec INR (<1.2) ABG pCO2 (35-45) mmHg ABG HCO3 (21-25) mmol/L ABG Total CO2 (19-24) mmol/L Sodium (137-145) mmol/L Potassium 6.6 H* (3.5-5.1) mmol/L Carbon Dioxide (22-30) mmol/L BUN (9-20) mg/dL Creatinine (0.66-1.25) mg/dL Glucose (74-99) mg/dL POC Glucose (mg/dL) (75-99) mg/dL Plasma Lactic Acid Russ 4.8 H* (0.7-2.0) mmol/L Calcium (8.4-10.2) mg/dL AST (17-59) U/L ALT (4-49) U/L Total Protein (6.3-8.2) g/dL Albumin (3.5-5.0) g/dL Amylase (30-110) U/L 04/30/19 Range/Units 06:04 WBC (3.8-10.6) k/uL RBC (4.30-5.90) m/uL Hgb (13.0-17.5) gm/dL Hct (39.0-53.0) % MCHC (31.0-37.0) g/dL Neutrophils # (1.3-7.7) k/uL Monocytes # (0-1.0) k/uL PT 13.5 H (9.0-12.0) sec INR 1.4 H (<1.2) ABG pCO2 (35-45) mmHg ABG HCO3 (21-25) mmol/L ABG Total CO2 (19-24) mmol/L Sodium (137-145) mmol/L Potassium (3.5-5.1) mmol/L Carbon Dioxide (22-30) mmol/L BUN (9-20) mg/dL Creatinine (0.66-1.25) mg/dL Glucose (74-99) mg/dL POC Glucose (mg/dL) (75-99) mg/dL Plasma Lactic Acid Rsus (0.7-2.0) mmol/L Calcium (8.4-10.2) mg/dL AST (17-59) U/L ALT (4-49) U/L Total Protein (6.3-8.2) g/dL Albumin (3.5-5.0) g/dL Amylase (30-110) U/L Microbiology - Last 24 Hours (Table) 04/23/19 11:15 Blood Culture - Final Blood No Growth after 144 hours Assessment and Plan Assessment: Assessment #1 long-standing persistent atrial fibrillation was controlled heart rate #2 acute respiratory distress which was resolved #3 pneumonia #4 right pleural effusion #5 acute on chronic renal failure #6 electrolytes imbalance Plan #1 continue the current medical regimen including heparin IV #2 continue monitoring the kidney function and electrolytes #3 I would suggest obtaining nephrology consult #4 follow-up with the patient
[2019-04-30] MEDS: MULTIVITAMINS, THERA 1 EACH TAB PO SCH (08:23)
[2019-04-30] MEDS: METOPROLOL TARTRATE 25 MG TAB PO SCH ×3 (08:23→22:19)
[2019-04-30] MEDS: FERROUS SULFATE 325 MG TAB PO SCH ×2 (08:24→22:19)
[2019-04-30] MEDS: CEFEPIME 2 GM in SODIUM CHLORIDE 0.9% 100 ML IVPB SCH (08:25)
[2019-04-30] MEDS: VANCOMYCIN 1,500 MG in SODIUM CHLORIDE 0.9% 250 ML IVPB SCH (08:26)
[2019-04-30] MEDS ORDERED: FUROSEMIDE 10 MG/ML 2 ML VIAL IV SCH (09:00)
[2019-04-30 09:30] LABS: Glucose,Whole Blood 163 mg/dL (75-99)
[2019-04-30] MEDS ORDERED: SODIUM CHLORIDE 0.45% 1,000 ML with SODIUM BICARB (1 MEQ/ML) 100 ML IV ONE ×2 (09:53)
[2019-04-30] MEDS ORDERED: INSULIN REGULAR 100 UNIT/ML VIAL IV ONE (09:54)
[2019-04-30] MEDS ORDERED: DEXTROSE 10 % IN WATER 125 ML IV ONE (09:57)
[2019-04-30] MEDS: VERAPAMIL SR 180 MG TABLET.ER PO SCH (10:29)
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
[2019-04-30 11:40] LABS: Glucose,Whole Blood 152 mg/dL (75-99)
[2019-04-30] MEDS: NYSTATIN 100,000 UNIT/ML SUSP 500,000 UNIT/5 ML CUP PO SCH ×4 (12:12→22:18)
[2019-04-30] MEDS ORDERED: diphenhydrAMINE 50 MG CAP PO PRN (14:07)
--- NOTE | 2019-04-30 14:12 | P.PN ---
Subjective Progress Note Date: 04/30/19 (Critical care time spent 35 minutes) Principal diagnosis: Pleural effusion A. fib with rapid rapid ventricular response Acute exacerbation of diastolic heart failure Right lower lobe pneumonia Status post splenectomy 04/30/2019, patient seen eval reexamined during the rounds labs reviewed medications reviewed computed tomography scan of the chest as well as abdomen and the ultrasound reviewed as well, ultrasound is not showing a very large pleural effusion however fluid is present no stare leave the last interventional radiology to do the right-sided thoracentesis, overall patient decompensate and transferred from the floor to ICU it appears that patient has a hypotensive episodes and the laboratory data indicated that as lactic acid went up rotation went up urine functions progressed as well as liver enzymes shot up as well suggestive of possible ongoing for transient visceral ischemia, will DC the Lasix DC where optimal along with Tylenol Atarax continue gently rehydrate the patient heparin drip has been started, will stop it before thoracentesis as per recommendation of INR, continue broad-spectrum antibiotics continue high flow oxygen, regular care time 35 minutes 04/29/2019, patient seen eval examined during the rounds labs reviewed medications reviewed, remains afebrile with controlled ventricular response patient has been on room air but somewhat short of breath though chest x-ray and computed tomography scan have been reviewed there is moderate pleural effusion the right side has been noted, patient is on anticoagulation I have discussed with RN will stop the anticoagulation today and tomorrow and patient will be scheduled for right-sided thoracentesis, I have ordered ultrasound of the chest as well to look into depth and amount of fluid, blood and urine cultures have been positive for E. coli, repeat blood cultures on have been negative, white cell continued to go down slowly 04/27/2019, patient seen eval examined during the rounds chest x-ray from today reviewed slight worsening of pleural effusion has seen, patient has persistent infiltrate in the right lower lobe some reticular density in the left lower lobe is seen as well, patient denies any chest pain intermittent cough is present, white cell count is slowly improving, blood cultures no growth so far, given that patient has a significant history of splenectomy would recommend to continue IV antibiotics, would give a dose of vancomycin as well, observe renal functions closely This is a 68-year-old male who presents emergency Department with a past medical history significant for atrial fibrillation. Patient is on eliquis. Patient is status post splenectomy. Patient states since Tuesday after he coughed he's been having some right-sided chest pain is very sharp in nature. Patient states movement definitely makes it worse and coughing definitely makes it worse per patient denies any shortness of breath or difficulty breathing. Patient denies any fever chills. Patient denies any abdominal pain. Patient has nausea vomiting diarrhea. Patient denies any headache patient denies numbness weakness. Patient has any back pain. Patient denies any lightheadedness or dizziness. His repeat chest x-ray shows right basal infiltrate along with effusion slightly progressive worsening is seen along with nodular density in the left base Ammann we'll repeat another chest x-ray tomorrow Objective - Vital Signs Vital signs: Vital Signs Temp 98.1 F 04/30/19 12:00 Pulse 81 04/30/19 13:00 Resp 16 04/30/19 13:00 BP 102/76 04/30/19 13:00 Pulse Ox 97 04/30/19 07:00 Intake & Output 04/29/19 04/30/19 04/30/19 18:59 06:59 18:59 Intake Total 240 301.167 400 Output Total 0 205 Balance 240 301.167 195 Intake: IV 300 350 Sodium Chloride 0.9% 1, 50 350 000 ml @ 50 mls/hr IV . Q20H [facility] Rx#:[id number] Sodium Chloride 0.9% 250 250 ml @ 999 mls/hr IV .Q16M [facility] Rx#:[id number] Intake, IV Titration 1.167 50 Amount Heparin Sod,Pork in 0.45% 1.167 NaCl 25,000 unit In 0.45 % NaCl 1 250ml.bag @ 11. 43 UNITS/KG/HR 10.001 mls /hr IV .Q24H [facility] Rx#: [id number] Sodium Chloride 0.45% 1, 50 000 ml @ 50 mls/hr IV . Q22H [facility] with Sodium Bicarb (1 Meq/ml) 100 ml Rx#:[id number] Oral 240 Output: Urine 0 205 Other: Voiding Method Toilet Urinal Indwelling Catheter # Voids 1 - Exam - Constitutional General appearance: Present: average body habitus, cooperative, disheveled - EENT Eyes: Present: abnormal pupil, EOMI, PERRLA, normal appearance Ears: bilateral: normal - Neck Carotids: bilateral: upstroke normal Thyroid: bilateral: normal size - Respiratory Respiratory: bilateral: diminished more so on the right side compared left side - Cardiovascular Rhythm: regular Heart sounds: normal: S1, S2 - Gastrointestinal General gastrointestinal: Present: normal bowel sounds - Neurologic Neurologic: Present: CNII-XII intact - Musculoskeletal Musculoskeletal: Present: gait normal, generalized weakness, strength equal bilaterally - Psychiatric Psychiatric: Present: A&O x's 3, appropriate affect, intact judgment & insight - Labs CBC & Chem 7: 04/30/19 03:55 04/30/19 04:42 Labs: Abnormal Lab Results - Last 24 Hours (Table) 04/29/19 04/29/19 04/29/19 Range/Units 18:00 18:14 18:37 WBC 20.3 H (3.8-10.6) k/uL RBC 2.80 L (4.30-5.90) m/uL Hgb 8.1 L (13.0-17.5) gm/dL Hct 26.1 L (39.0-53.0) % MCHC (31.0-37.0) g/dL Neutrophils # 17.6 H (1.3-7.7) k/uL Monocytes # 1.2 H (0-1.0) k/uL PT (9.0-12.0) sec INR (<1.2) ABG pCO2 25 L (35-45) mmHg ABG HCO3 16 L (21-25) mmol/L ABG Total CO2 16 L (19-24) mmol/L Sodium (137-145) mmol/L Potassium (3.5-5.1) mmol/L Carbon Dioxide (22-30) mmol/L BUN (9-20) mg/dL Creatinine (0.66-1.25) mg/dL Glucose (74-99) mg/dL POC Glucose (mg/dL) 207 H (75-99) mg/dL Plasma Lactic Acid Russ (0.7-2.0) mmol/L Calcium (8.4-10.2) mg/dL AST (17-59) U/L ALT (4-49) U/L Total Protein (6.3-8.2) g/dL Albumin (3.5-5.0) g/dL Amylase (30-110) U/L Procalcitonin (0.02-0.09) ng/mL 04/29/19 04/29/19 04/29/19 Range/Units 18:45 18:45 18:45 WBC (3.8-10.6) k/uL RBC (4.30-5.90) m/uL Hgb (13.0-17.5) gm/dL Hct (39.0-53.0) % MCHC (31.0-37.0) g/dL Neutrophils # (1.3-7.7) k/uL Monocytes # (0-1.0) k/uL PT (9.0-12.0) sec INR (<1.2) ABG pCO2 (35-45) mmHg ABG HCO3 (21-25) mmol/L ABG Total CO2 (19-24) mmol/L Sodium 132 L (137-145) mmol/L Potassium (3.5-5.1) mmol/L Carbon Dioxide 18 L (22-30) mmol/L BUN 24 H (9-20) mg/dL Creatinine 2.00 H (0.66-1.25) mg/dL Glucose 190 H (74-99) mg/dL POC Glucose (mg/dL) (75-99) mg/dL Plasma Lactic Acid Russ 3.3 H* (0.7-2.0) mmol/L Calcium 8.1 L (8.4-10.2) mg/dL AST (17-59) U/L ALT (4-49) U/L Total Protein (6.3-8.2) g/dL Albumin (3.5-5.0) g/dL Amylase (30-110) U/L Procalcitonin 0.20 H (0.02-0.09) ng/mL 04/29/19 04/29/19 04/30/19 Range/Units 23:26 23:26 02:17 WBC (3.8-10.6) k/uL RBC (4.30-5.90) m/uL Hgb (13.0-17.5) gm/dL Hct (39.0-53.0) % MCHC (31.0-37.0) g/dL Neutrophils # (1.3-7.7) k/uL Monocytes # (0-1.0) k/uL PT (9.0-12.0) sec INR (<1.2) ABG pCO2 (35-45) mmHg ABG HCO3 (21-25) mmol/L ABG Total CO2 (19-24) mmol/L Sodium (137-145) mmol/L Potassium (3.5-5.1) mmol/L Carbon Dioxide (22-30) mmol/L BUN (9-20) mg/dL Creatinine (0.66-1.25) mg/dL Glucose (74-99) mg/dL POC Glucose (mg/dL) 177 H (75-99) mg/dL Plasma Lactic Acid Russ 3.4 H* (0.7-2.0) mmol/L Calcium (8.4-10.2) mg/dL AST 146 H (17-59) U/L ALT 97 H (4-49) U/L Total Protein (6.3-8.2) g/dL Albumin (3.5-5.0) g/dL Amylase <30 L (30-110) U/L Procalcitonin (0.02-0.09) ng/mL 04/30/19 04/30/19 04/30/19 Range/Units 03:55 03:55 03:55 WBC 28.5 H (3.8-10.6) k/uL RBC 3.02 L (4.30-5.90) m/uL Hgb 8.6 L (13.0-17.5) gm/dL Hct 28.2 L (39.0-53.0) % MCHC 30.6 L (31.0-37.0) g/dL Neutrophils # 26.0 H (1.3-7.7) k/uL Monocytes # (0-1.0) k/uL PT (9.0-12.0) sec INR (<1.2) ABG pCO2 (35-45) mmHg ABG HCO3 (21-25) mmol/L ABG Total CO2 (19-24) mmol/L Sodium 132 L (137-145) mmol/L Potassium 6.7 H* (3.5-5.1) mmol/L Carbon Dioxide 16 L (22-30) mmol/L BUN 28 H (9-20) mg/dL Creatinine 2.36 H (0.66-1.25) mg/dL Glucose 154 H (74-99) mg/dL POC Glucose (mg/dL) (75-99) mg/dL Plasma Lactic Acid Russ 4.8 H* (0.7-2.0) mmol/L Calcium 8.3 L (8.4-10.2) mg/dL AST 478 H (17-59) U/L ALT 259 H (4-49) U/L Total Protein 6.0 L (6.3-8.2) g/dL Albumin 3.0 L (3.5-5.0) g/dL Amylase (30-110) U/L Procalcitonin (0.02-0.09) ng/mL 04/30/19 04/30/19 04/30/19 Range/Units 04:42 06:04 07:49 WBC (3.8-10.6) k/uL RBC (4.30-5.90) m/uL Hgb (13.0-17.5) gm/dL Hct (39.0-53.0) % MCHC (31.0-37.0) g/dL Neutrophils # (1.3-7.7) k/uL Monocytes # (0-1.0) k/uL PT 13.5 H (9.0-12.0) sec INR 1.4 H (<1.2) ABG pCO2 (35-45) mmHg ABG HCO3 (21-25) mmol/L ABG Total CO2 (19-24) mmol/L Sodium (137-145) mmol/L Potassium 6.6 H* (3.5-5.1) mmol/L Carbon Dioxide (22-30) mmol/L BUN (9-20) mg/dL Creatinine (0.66-1.25) mg/dL Glucose (74-99) mg/dL POC Glucose (mg/dL) (75-99) mg/dL Plasma Lactic Acid Russ 3.6 H* (0.7-2.0) mmol/L Calcium (8.4-10.2) mg/dL AST (17-59) U/L ALT (4-49) U/L Total Protein (6.3-8.2) g/dL Albumin (3.5-5.0) g/dL Amylase (30-110) U/L Procalcitonin (0.02-0.09) ng/mL 04/30/19 04/30/19 04/30/19 Range/Units 09:28 11:32 11:38 WBC (3.8-10.6) k/uL RBC (4.30-5.90) m/uL Hgb (13.0-17.5) gm/dL Hct (39.0-53.0) % MCHC (31.0-37.0) g/dL Neutrophils # (1.3-7.7) k/uL Monocytes # (0-1.0) k/uL PT (9.0-12.0) sec INR (<1.2) ABG pCO2 (35-45) mmHg ABG HCO3 (21-25) mmol/L ABG Total CO2 (19-24) mmol/L Sodium (137-145) mmol/L Potassium (3.5-5.1) mmol/L Carbon Dioxide (22-30) mmol/L BUN (9-20) mg/dL Creatinine (0.66-1.25) mg/dL Glucose (74-99) mg/dL POC Glucose (mg/dL) 163 H 152 H (75-99) mg/dL Plasma Lactic Acid Russ 2.8 H* (0.7-2.0) mmol/L Calcium (8.4-10.2) mg/dL AST (17-59) U/L ALT (4-49) U/L Total Protein (6.3-8.2) g/dL Albumin (3.5-5.0) g/dL Amylase (30-110) U/L Procalcitonin (0.02-0.09) ng/mL Microbiology - Last 24 Hours (Table) 04/23/19 11:15 Blood Culture - Final Blood No Growth after 144 hours Assessment and Plan Assessment: Suspect hypotensive episode with transient visceral ischemia causing elevated liver enzymes, renal function, lactic acidosis and hyperkalemia Moderate to severe hyperkalemia Elevated liver enzymes Developing right-sided pleural effusion mild to moderate A. fib with rapid rapid ventricular response Acute exacerbation of diastolic heart failure Right lower lobe pneumonia Pleural effusion likely related to fluid overload and diastolic heart failure with A. fib Status post splenectomy Sepsis due to pneumonia Plan: Repeat chest ultrasound and CAT scan abdominal scan reviewed Bicarb drip Meds reviewed and will DC potential hepatotoxic medicines Continue IV heparin stop it before thoracentesis Consult IR for right-sided thoracentesis DC medicine that could contribute to hypertension and liver injury Keep blood pressure map over 65-75 Antibiotics IV Cardiology consultation and recommendation results reviewed Further plan of care as per clinical response of the patient Time with Patient: Greater than 30
[2019-04-30 14:26] LABS: INR 1.3 (<1.2); Prothrombin Time 13.1 sec (9.0-12.0)
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
--- NOTE | 2019-04-30 14:50 | US ---
EXAMINATION TYPE: US liver DATE OF EXAM: 04/30/2019 COMPARISON: NONE CLINICAL HISTORY: Elevated Liver Enzymes . EXAM MEASUREMENTS: Liver Length: 12.9 cm Gallbladder Wall: 0.6 cm CBD: 0.5 cm Right Kidney: 1.9 x 5.2 x 5.2 cm ICU patient done portable, extensive overlying bowel gas, limited study. Pancreas: Obscured by bowel gas Liver: wnl Gallbladder: probable pericholecystic fluid, thickened wall and stones Evidence for sonographic Carvalho's sign: no CBD: wnl Right Kidney: inferior pole obscured by overlying bowel gas IMPRESSION: Gallbladder wall thickening and pericholecystic fluid are seen with cholelithiasis. Howev er the common bile duct is within normal limits and sonographic Carvalho's sign is negative. HIDA scan is recommended to exclude acute cholecystitis.
--- NOTE | 2019-04-30 15:55 | XR ---
EXAMINATION TYPE: XR chest 1V portable DATE OF EXAM: 04/30/2019 COMPARISON: 04/29/2019 HISTORY: Status post thoracentesis. TECHNIQUE: Single frontal view of the chest is obtained. FINDINGS: There is improved degree of right pleural effusion in comparison to the recent prior with small residual right pleural effusion and associated right basilar airspace disease remaining. Cardio mediastinal silhouette is enlarged. Left lung is well aerated. No postprocedural pneumothorax is seen . IMPRESSION: No postprocedural pneumothorax. Improved small right pleural effusion with associated bi basilar airspace disease.
--- NOTE | 2019-04-30 16:23 | US ---
EXAMINATION TYPE: US thoracentesis DATE OF EXAM: 04/30/2019 COMPARISON: NONE HISTORY: Pleural effusion. FINDINGS: Maximal barrier technique was utilized. The skin overlying a suitable pocket of fluid was localized and the overlying skin prepped and draped. Lidocaine was used for local anesthesia. Ultras ound was used with sterile technique. A 6 Telugu catheter over guide needle was advanced into the pl eural fluid collection using ultrasound guidance and the catheter advanced, needle removed. Approxim ately 1.1 liter(s) of serous sanguinous fluid was removed. Catheter was withdrawn and hemostasis ach ieved. There is no immediate complication. The patient discharged in stable condition without compl ication. Specimen obtained for laboratory analysis. IMPRESSION: STATUS POST ULTRASOUND GUIDED THORACENTESIS, POST PROCEDURE CHEST X-RAY PENDING. THIS SD OCEDURE WAS PERFORMED BY THE UNDERSIGNED.
[2019-04-30] MEDS: PIPERACILLIN-TAZOBACTAM 3.375 GM in SODIUM CHLORIDE 0.9% 100 ML IVPB SCH (16:32)
[2019-04-30] MEDS: MORPHINE SULFATE 2 MG/ML SYRINGE IVP PRN ×2 (16:58→20:01)
[2019-04-30 18:45] LABS: % Iron Saturation 18.8 (15.00-50.00)
[2019-04-30 19:00] LABS: Appearance,BF Cloudy; Color,BF Red
[2019-04-30 19:04] LABS: Amorphous Sediment,Urine Occasional /hpf; Appearance,Urine Cloudy (Clear); Bacteria,Urine Rare /hpf; Bilirubin,Urine Negative (Negative); Blood,Urine Moderate (Negative); Color,Urine Yellow; Glucose,Urine (UA) Negative (Negative); Hyaline Casts,Urine 1 /lpf (0-2); Ketones,Urine Trace (Negative); Leukocyte Esterase,Urine Moderate (Negative); Mucus,Urine Occasional /hpf; Nitrite,Urine Negative (Negative); PH, Urine 5.5 (5.0-8.0); Protein,Urine 1+ (Negative); RBC,Urine 93 /hpf (0-5); Specific Gravity,Urine 1.022 (1.001-1.035); Squamous Epithelial Cell,Urine 1 /hpf (0-4); Urobilinogen,Urine <2.0 mg/dL (<2.0); WBC,Urine 18 /hpf (0-5)
[2019-04-30 20:17] LABS: Nucleated Cells, Body Fluid 1300 /uL; RBC, Body Fluid 61000 /uL
[2019-04-30 20:19] LABS: Mononuclear WBC,Body Fluid 33 %; Polynuclear WBC,Body Fluid 67 %; Total Cells Counted,Body Fluid 100
[2019-04-30] MEDS: QUEtiapine 100 MG TAB PO SCH (22:19)
[2019-04-30] MEDS: PRAVASTATIN SODIUM 20 MG TAB PO SCH (22:19)
--- NOTE | 2019-04-30 23:41 | PN ---
PROGRESS NOTE DATE OF SERVICE: 04/30/2019 REASON FOR FOLLOWUP: Pneumonia. INTERVAL HISTORY: The patient was seen on rounds early this morning. The patient did have respiratory distress and could not breathe; hence the patient has been transferred to the ICU. The patient has been hemodynamically stable, not requiring any pressor support. The patient continues to complain of some pain on the right side of the chest and he did have a dry cough but no sputum. No nausea, no vomiting. No abdominal pain or diarrhea. PHYSICAL EXAMINATION: Blood pressure is 113/87 with a pulse of 104, temperature 98.7. He is 94% on high-flow oxygen. General description is an elderly male lying in bed in no distress. RESPIRATORY SYSTEM: Unlabored breathing with decreased breath sounds on the right side. No wheeze. HEART: S1, S2. Regular rate and rhythm. ABDOMEN: Soft. No tenderness. No guarding or rigidity. EXTREMITIES: No edema of the feet. LABS: Hemoglobin 8.7, white count of 28.5. Lactic acid is elevated and creatinine has jumped to 2.36, which was normal yesterday morning at 1.38. DIAGNOSTIC IMPRESSION AND PLAN: Patient with right-sided and pneumonia in this patient who did have a sudden change in his overall clinical condition with worsening respiratory symptoms. Awaiting thoracocentesis. Fluid should be sent for culture. We will discontinue vancomycin and cefepime, start the patient on Zosyn, adjusting antibiotic further on the basis of clinical response and culture. Continue with supportive care. MMODL / IJN: [id number] /
[2019-05-01] MEDS: PIPERACILLIN-TAZOBACTAM 3.375 GM in SODIUM CHLORIDE 0.9% 100 ML IVPB SCH ×3 (00:17→18:04)
[2019-05-01 01:57] LABS: Amylase, Fluid Source Thoracentesis; Glucose, BF Source Pleural Fluid; Glucose, Body Fluid 106 mg/dL
[2019-05-01] MEDS: MORPHINE SULFATE 2 MG/ML SYRINGE IVP PRN (02:32)
[2019-05-01 04:42] LABS: LDH, Body Fluid Source Pleural Fluid
[2019-05-01] MEDS: PANTOPRAZOLE 40 MG TABLET PO SCH (06:30)
--- NOTE | 2019-05-01 07:01 | P.PN ---
Subjective Progress Note Date: 05/01/19 Principal diagnosis: Long-standing persistent atrial fibrillation This is a very pleasant 68-year-old gentleman with a past medical history significant for long-standing persistent atrial fibrillation as well as chronic kidney disease who was admitted to the hospital with pneumonia. We consulted initially to see the patient for atypical chest discomfort. The workup came in to be unremarkable. We signed off on the patient. Subsequently the patient last night the lobe respiratory distress and he was transferred to intensive care unit. The patient was seen today, May [id number]. He is definitely doing better clinically. He is hemodynamically stable where he continues to be in atrial fibrillation was controlled heart rate. On examination he does have clear matt athing sounds bilaterally. He still have bilateral lower extremities edema which seems to be slightly better. We don't have a blood work on him to follow- up on the creatinine as well as potassium. Since he is not going to undergo any procedure like pleurocentesis, I am going to DC the heparin IV and start the patient on oral anticoagulation with Xarelto at 15 mg by mouth daily giving his low GFR. Objective - Vital Signs Vital signs: Vital Signs Temp 98.9 F 05/01/19 04:00 Pulse 101 H 05/01/19 06:00 Resp 19 05/01/19 06:00 BP 112/74 05/01/19 06:00 Pulse Ox 93 L 05/01/19 06:00 Intake & Output 04/30/19 04/30/19 05/01/19 06:59 18:59 06:59 Intake Total 881.268 3558 772.341 Output Total 0 385 695 Balance 301.167 655 77.341 Weight 91.9 kg Intake: IV 300 450 550 Sodium Chloride 0.45% 1, 550 000 ml @ 50 mls/hr IV . Q22H ONE with Sodium Bicarb (1 Meq/ml) 100 ml Rx#:[id number] Sodium Chloride 0.9% 1, 50 450 000 ml @ 50 mls/hr IV . Q20H [facility] Rx#:[id number] Sodium Chloride 0.9% 250 250 ml @ 999 mls/hr IV .Q16M [facility] Rx#:[id number] Intake, IV Titration 1.167 350 122.341 Amount Heparin Sod,Pork in 0.45% 1.167 NaCl 25,000 unit In 0.45 % NaCl 1 250ml.bag @ 11. 43 UNITS/KG/HR 10.001 mls /hr IV .Q24H [facility] Rx#: [id number] Heparin Sod,Pork in 0.45% 72.341 NaCl 25,000 unit In 0.45 % NaCl 1 250ml.bag @ 11. 43 UNITS/KG/HR 10.001 mls /hr IV .Q24H [facility] Rx#: [id number] Piperacillin-Tazobactam 3 100 .375 gm In Sodium Chloride 0.9% 100 ml @ 25 mls/hr IVPB Q8HR [facility] Rx# :[id number] Sodium Chloride 0.45% 1, 250 50 000 ml @ 50 mls/hr IV . Q22H ONE with Sodium Bicarb (1 Meq/ml) 100 ml Rx#:[id number] Oral 240 100 Output: Urine 0 385 695 Other: Voiding Method Urinal Indwelling Catheter Indwelling Catheter - Constitutional General appearance: Present: no acute distress - Respiratory Respiratory: bilateral: CTA - Cardiovascular Rhythm: irregularly irregular Heart sounds: normal: S1, S2 - Labs CBC & Chem 7: 04/30/19 03:55 04/30/19 17:58 Labs: Abnormal Lab Results - Last 24 Hours (Table) 04/29/19 04/30/19 04/30/19 Range/Units 18:45 04:24 07:49 PT (9.0-12.0) sec INR (<1.2) APTT (22.0-30.0) sec Potassium (3.5-5.1) mmol/L POC Glucose (mg/dL) (75-99) mg/dL Plasma Lactic Acid Russ 3.6 H* (0.7-2.0) mmol/L Iron 47 L (65-175) ug/dL Procalcitonin 0.20 H (0.02-0.09) ng/mL Urine Protein (Negative) Urine Ketones (Negative) Urine Blood (Negative) Ur Leukocyte Esterase (Negative) Urine RBC (0-5) /hpf Urine WBC (0-5) /hpf Urine WBC Clumps (None) /hpf Amorphous Sediment (None) /hpf Urine Bacteria (None) /hpf Urine Mucus (None) /hpf 04/30/19 04/30/19 04/30/19 Range/Units 09:28 11:32 11:38 PT (9.0-12.0) sec INR (<1.2) APTT (22.0-30.0) sec Potassium (3.5-5.1) mmol/L POC Glucose (mg/dL) 163 H 152 H (75-99) mg/dL Plasma Lactic Acid Russ 2.8 H* (0.7-2.0) mmol/L Iron (65-175) ug/dL Procalcitonin (0.02-0.09) ng/mL Urine Protein (Negative) Urine Ketones (Negative) Urine Blood (Negative) Ur Leukocyte Esterase (Negative) Urine RBC (0-5) /hpf Urine WBC (0-5) /hpf Urine WBC Clumps (None) /hpf Amorphous Sediment (None) /hpf Urine Bacteria (None) /hpf Urine Mucus (None) /hpf 04/30/19 04/30/19 04/30/19 Range/Units 13:48 17:58 17:58 PT 13.1 H (9.0-12.0) sec INR 1.3 H (<1.2) APTT (22.0-30.0) sec Potassium 5.4 H (3.5-5.1) mmol/L POC Glucose (mg/dL) (75-99) mg/dL Plasma Lactic Acid Russ 3.3 H* (0.7-2.0) mmol/L Iron (65-175) ug/dL Procalcitonin (0.02-0.09) ng/mL Urine Protein (Negative) Urine Ketones (Negative) Urine Blood (Negative) Ur Leukocyte Esterase (Negative) Urine RBC (0-5) /hpf Urine WBC (0-5) /hpf Urine WBC Clumps (None) /hpf Amorphous Sediment (None) /hpf Urine Bacteria (None) /hpf Urine Mucus (None) /hpf 04/30/19 04/30/19 Range/Units 18:34 22:30 PT (9.0-12.0) sec INR (<1.2) APTT 34.3 H (22.0-30.0) sec Potassium (3.5-5.1) mmol/L POC Glucose (mg/dL) (75-99) mg/dL Plasma Lactic Acid Russ (0.7-2.0) mmol/L Iron (65-175) ug/dL Procalcitonin (0.02-0.09) ng/mL Urine Protein 1+ H (Negative) Urine Ketones Trace H (Negative) Urine Blood Moderate H (Negative) Ur Leukocyte Esterase Moderate H (Negative) Urine RBC 93 H (0-5) /hpf Urine WBC 18 H (0-5) /hpf Urine WBC Clumps Rare H (None) /hpf Amorphous Sediment Occasional H (None) /hpf Urine Bacteria Rare H (None) /hpf Urine Mucus Occasional H (None) /hpf Microbiology - Last 24 Hours (Table) 04/30/19 20:15 Gram Stain - Preliminary Sputum Sputum Culture - Preliminary 04/30/19 15:05 Gram Stain - Preliminary Pleural Fluid Body Fluid Culture - Preliminary 04/30/19 15:05 Anaerobic Culture - Preliminary Pleural Fluid 04/30/19 15:05 Fungal Culture - Preliminary Pleural Fluid 04/30/19 15:05 Acid Fast Bacilli Culture - Preliminary Pleural Fluid Assessment and Plan Assessment: Assessment #1 long-standing persistent atrial fibrillation was controlled heart rate #2 acute respiratory distress which was resolved #3 pneumonia #4 right pleural effusion #5 acute on chronic renal failure #6 electrolytes imbalance Plan #1 DC heparin IV and start oral anticoagulation #2 continue monitor the kidney function and electrolytes including potassium #3 the patient can be transferred to the floor
[2019-05-01 07:29] LABS: Albumin 2.4 g/dL (3.5-5.0); Calcium 7.8 mg/dL (8.4-10.2); Potassium 4.6 mmol/L (3.5-5.1); Total Bilirubin 0.4 mg/dL (0.2-1.3); Total Protein 5.3 g/dL (6.3-8.2)
[2019-05-01] MEDS: NYSTATIN 100,000 UNIT/ML SUSP 500,000 UNIT/5 ML CUP PO SCH ×4 (08:24→22:37)
[2019-05-01] MEDS: FERROUS SULFATE 325 MG TAB PO SCH ×2 (08:25→21:30)
[2019-05-01] MEDS: VERAPAMIL SR 180 MG TABLET.ER PO SCH (08:25)
[2019-05-01] MEDS: MULTIVITAMINS, THERA 1 EACH TAB PO SCH (08:25)
[2019-05-01] MEDS: METOPROLOL TARTRATE 25 MG TAB PO SCH ×3 (08:25→22:39)
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
[2019-05-01 08:51] LABS: Basophils % (A) 0 %; Eosinophils # (A) 0.1 k/uL (0-0.7); Eosinophils % (A) 0 %; HCT 23.9 % (39.0-53.0); HGB 7.2 gm/dL (13.0-17.5); Hypochromasia Moderate; Lymphocytes # (A) 2.2 k/uL (1.0-4.8); Lymphocytes % (A) 8 %; MCH 27.7 pg (25.0-35.0); MCHC 30.1 g/dL (31.0-37.0); MCV 91.8 fL (80.0-100.0); Mean Platelet Volume 9.5; Monocytes # (A) 0.9 k/uL (0-1.0); Monocytes % (A) 3 %; Neutrophils # (A) 22.9 k/uL (1.3-7.7); Neutrophils % (A) 87 %; Platelet Count 388 k/uL (150-450); RDW 15.3 % (11.5-15.5); WBC 26.2 k/uL (3.8-10.6)
--- NOTE | 2019-05-01 10:03 | XR ---
EXAMINATION TYPE: XR chest 1V portable DATE OF EXAM: 05/01/2019 COMPARISON: 04/30/2019 HISTORY: ICU management. Shortness of breath. TECHNIQUE: Single frontal view of the chest is obtained. FINDINGS: Increasing right basilar opacity seen with stable small right pleural effusion. Remainder the lungs are well aerated. Cardiomediastinal silhouette is enlarged. No acute osseous pathology. IMPRESSION: Increasing right basilar opacity that may represent atelectasis or pneumonia with adjace nt small right pleural effusion that appears stable.
[2019-05-01] MEDS: SODIUM CHLORIDE 0.45% 1,000 ML with SODIUM BICARB (1 MEQ/ML) 100 ML IV SCH ×4 (11:00→21:17)
[2019-05-01] MEDS: MIDODRINE 5 MG TAB PO SCH ×2 (11:15→17:26)
[2019-05-01 11:36] LABS: Hepatitis A Antibody IgM Non-Reactive (Non-Reactive); Hepatitis B Core IgM Non-Reactive (Non-Reactive); Hepatitis B Surface Antigen Non-Reactive (Non-Reactive); Hepatitis C IgG Antibody Non-Reactive (Non-Reactive)
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
--- NOTE | 2019-05-01 13:10 | XR ---
EXAMINATION TYPE: XR chest 1V DATE OF EXAM: 05/01/2019 COMPARISON: NONE HISTORY: Shortness of breath TECHNIQUE: Single frontal view of the chest is obtained. FINDINGS: Improving right basilar opacity with small right pleural effusion. Given the short-term im provement likely relates to patient positioning. Cardiomediastinal silhouette is again enlarged with some obscuration of the right heart border. Follow-up to resolution to exclude right basilar mass. Le ft lower lobe nodule again seen. Remainder of the lungs are well aerated. IMPRESSION: Improving right basilar opacity, likely related to patient positioning given the short-t erm improvement. Small right pleural effusion remains. Masslike opacity in the right lower lobe may r elate to pneumonia or pulmonary mass. Follow-up to resolution recommended.
[2019-05-01] MEDS: ALPRAZolam 0.25 MG TAB PO PRN (13:22)
[2019-05-01 13:52] LABS: Ammonia <9 umol/L (<30)
[2019-05-01 13:53] LABS: Albumin 2.7 g/dL (3.5-5.0); Calcium 8.3 mg/dL (8.4-10.2); Lactic Acid, Venous 5.4 mmol/L (0.7-2.0); Phosphorus 4.2 mg/dL (2.5-4.5); Potassium 5.4 mmol/L (3.5-5.1); Total Bilirubin 0.5 mg/dL (0.2-1.3); Total Protein 5.7 g/dL (6.3-8.2)
[2019-05-01] MEDS ORDERED: VANCOMYCIN TROUGH DUE 1 EACH MISC MISCELLANE ONE (14:00)
[2019-05-01 14:02] LABS: ABG HCO3 13 mmol/L (21-25); ABG Oxygen Saturation 99.3 % (94-97); ABG PH 7.51 (7.35-7.45); ABG PO2 171 mmHg (83-108); ABG TCO2 14 mmol/L (19-24); Allen Test Performed? Yes
[2019-05-01 14:05] LABS: ABG PCO2 17 mmHg (35-45)
[2019-05-01 14:06] LABS: HCT 24.6 % (39.0-53.0); HGB 7.7 gm/dL (13.0-17.5); Hypochromasia Moderate; MCH 28.6 pg (25.0-35.0); MCHC 31.2 g/dL (31.0-37.0); MCV 91.6 fL (80.0-100.0); Mean Platelet Volume 8.6; Platelet Count 448 k/uL (150-450); RBC 2.69 m/uL (4.30-5.90); RDW 15.3 % (11.5-15.5); WBC 27.9 k/uL (3.8-10.6)
[2019-05-01] MEDS: LORazepam 2 MG/ML INJ IV PRN (14:31)
[2019-05-01] MEDS: SODIUM POLYSTYRENE SULFONATE 15 GM/60 ML BOTTLE PO STA ×2 (14:31→14:54)
[2019-05-01 14:42] LABS: INR 1.4 (<1.2); Prothrombin Time 14.1 sec (9.0-12.0)
[2019-05-01 14:46] LABS: Band Neutrophils % 1 %; Lymphocytes # (M) 2.51 k/uL (1.0-4.8); Metamyelocytes # (M) 0.28 k/uL (0); Metamyelocytes % 1 %; Monocytes # (M) 1.12 k/uL (0-1.0); Myelocytes # (M) 0.28 k/uL (0); Myelocytes % 1 %; Neutrophils % (M) 86 %; Nucleated Red Blood Cells 0 /100 WBC (0-0); Poikilocytosis (M) Present; Total Cells Counted 200
[2019-05-01 14:47] LABS: Polychromasia Present; Toxic Granulation Present
[2019-05-01] MEDS ORDERED: FUROSEMIDE 10 MG/ML 10 ML VIAL IV STA (14:55)
[2019-05-01] MEDS ORDERED: PROPOFOL 10 MG/ML 20 ML VIAL IV ONE (15:00)
[2019-05-01] MEDS: LINEZOLID 600 MG in DEXTROSE/WATER 1 300ML.BAG IVPB SCH ×2 (15:00→21:30)
[2019-05-01] MEDS ORDERED: LIDOCAINE 1% INJ 10MG/ML (20 ML MDV) ONE (15:00)
--- NOTE | 2019-05-01 15:02 | PN ---
PROGRESS NOTE DATE OF SERVICE: 05/01/2019 REASON FOR FOLLOWUP: Pneumonia. INTERVAL HISTORY: The patient is currently afebrile. No temperature has been for the last few days. The patient is still complaining of shortness of breath and right chest pain, status post thoracocentesis yesterday. No nausea, no vomiting and no diarrhea. PHYSICAL EXAMINATION: Blood pressure is 95/56, pulse of 60, temperature is 97.8, he is on high-flow oxygen. General description is an elderly male, up in the bed in no distress. RESPIRATORY SYSTEM: Unlabored breathing, decreased breath sounds at the base, no wheeze. HEART: S1, S2. Regular rate and rhythm. ABDOMEN: Soft, no tenderness. EXTREMITIES: No edema of the feet. LABS: Hemoglobin is 7.2, white count of 26.2, BUN of 34, creatinine is 2.39, total fluid culture so far is pending. Sputum is pending as well. DIAGNOSTIC IMPRESSION AND PLAN: Patient with acute respiratory failure which is likely multifactorial. Patient with possible component of pneumonia. In view of overall with clinical condition, thoracentesis has been done. Will wait for the cultures to finalize. The patient is covered with Zosyn. Will add Zyvox and moderate clinical course closely. Continue supportive care. MMODL / IJN: [id number] /
[2019-05-01] MEDS ORDERED: LIDOCAINE 1% INJ 10MG/ML (20 ML MDV) SQ ONE (15:35)
--- NOTE | 2019-05-01 16:03 | XR ---
EXAMINATION TYPE: XR chest 1V portable DATE OF EXAM: 05/01/2019 COMPARISON: Prior chest x-ray same dated earlier time HISTORY: Status post PICC line placement TECHNIQUE: Single frontal view of the chest is obtained. FINDINGS: Interval placement of right-sided PICC line, distal tip is coursing cephalad into the jugu lar vein is not included on the exam. IMPRESSION: PICC line placement as described, no other significant interval change.
--- NOTE | 2019-05-01 16:04 | P.PN ---
Subjective Progress Note Date: 05/01/19 (Critical care time 35 minutes) Principal diagnosis: Delirium Hypotensive episode Intravascular volume depletion and dehydration Pleural effusion A. 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 fib with RVR this morning patient placed back on now for optimal along with the beta bernadette with that blood pressure significantly dropped down with that patient becomes confused and agitated the symptoms are consistent with drop in blood pressure along with development of acidosis and developing hyperkalemia patient did require Kayexalate extra dose patient has been resuscitated with fluid arterial blood gases done which revealed respiratory alkalosis along with some metabolic acidosis, would DC where optimal) meters for beta blockers continue to gently hydrate patient chest x-ray reviewed overall stable, it appears that confusion appears with episodes of hypertension which causes global ischemia and rising lactic acidosis renal functions liver functions, white cell count has been coming down we'll continue to monitor patient off of Lasix, Ativan 1 mg have been given for backside T and a prehension will observe closely in ICU continue high flow oxygen 04/30/2019, patient seen eval reexamined during the rounds labs reviewed medications reviewed computed tomography scan of the chest as well as abdomen and the ultrasound reviewed as well, ultrasound is not showing a very large pleural effusion however fluid is present no stare leave the last interventional radiology to do the right-sided thoracentesis, overall patient decompensate and transferred from the floor to ICU it appears that patient has a hypotensive episodes and the laboratory data indicated that as lactic acid went up rotation went up urine functions progressed as well as liver enzymes shot up as well suggestive of possible ongoing for transient visceral ischemia, will DC the Lasix DC where optimal along with Tylenol Atarax continue gently rehydrate the patient heparin drip has been started, will stop it before thoracentesis as per recommendation of INR, continue broad-spectrum antibiotics continue high flow oxygen, regular care time 35 minutes 04/29/2019, patient seen eval examined during the rounds labs reviewed medications reviewed, remains afebrile with controlled ventricular response patient has been on room air but somewhat short of breath though chest x-ray and computed tomography scan have been reviewed there is moderate pleural effusion the right side has been noted, patient is on anticoagulation I have discussed with RN will stop the anticoagulation today and tomorrow and patient will be scheduled for right-sided thoracentesis, I have ordered ultrasound of the chest as well to look into depth and amount of fluid, blood and urine cultures have be en positive for E. coli, repeat blood cultures on have been negative, white cell continued to go down slowly 04/27/2019, patient seen eval examined during the rounds chest x-ray from today reviewed slight worsening of pleural effusion has seen, patient has persistent infiltrate in the right lower lobe some reticular density in the left lower lobe is seen as well, patient denies any chest pain intermittent cough is present, white cell count is slowly improving, blood cultures no growth so far, given that patient has a significant history of splenectomy would recommend to continue IV antibiotics, would give a dose of vancomycin as well, observe renal functions closely This is a 68-year-old male who presents emergency Department with a past medical history significant for atrial fibrillation. Patient is on eliquis. Patient is status post splenectomy. Patient states since Tuesday after he coughed he's been having some right-sided chest pain is very sharp in nature. Patient states movement definitely makes it worse and coughing definitely makes it worse per patient denies any shortness of breath or difficulty breathing. Patient denies any fever chills. Patient denies any abdominal pain. Patient has nausea vomiting diarrhea. Patient denies any headache patient denies numbness weakness. Patient has any back pain. Patient denies any lightheadedness or dizziness. His repeat chest x-ray shows right basal infiltrate along with effusion slightly progressive worsening is seen along with nodular density in the left base Ammann we'll repeat another chest x-ray tomorrow Objective - Vital Signs Vital signs: Vital Signs Temp 97.8 F 05/01/19 12:00 Pulse 64 05/01/19 15:00 Resp 20 05/01/19 15:00 BP 81/65 05/01/19 15:00 Pulse Ox 100 05/01/19 15:00 Intake & Output 04/30/19 05/01/19 05/01/19 18:59 06:59 18:59 Intake Total 1040 772.341 750 Output Total 385 695 280 Balance 655 77.341 470 Weight 91.9 kg Intake: IV 450 550 750 Piperacillin-Tazobactam 3 300 .375 gm In Sodium Chloride 0.9% 100 ml @ 25 mls/hr IVPB Q8HR [facility] Rx# :[id number] Sodium Chloride 0.45% 1, 550 450 000 ml @ 50 mls/hr IV . Q22H ONE with Sodium Bicarb (1 Meq/ml) 100 ml Rx#:[id number] Sodium Chloride 0.9% 1, 450 000 ml @ 50 mls/hr IV . Q20H [facility] Rx#:[id number] Intake, IV Titration 350 122.341 Amount Heparin Sod,Pork in 0.45% 72.341 NaCl 25,000 unit In 0.45 % NaCl 1 250ml.bag @ 11. 43 UNITS/KG/HR 10.001 mls /hr IV .Q24H [facility] Rx#: [id number] Piperacillin-Tazobactam 3 100 .375 gm In Sodium Chloride 0.9% 100 ml @ 25 mls/hr IVPB Q8HR [facility] Rx# :[id number] Sodium Chloride 0.45% 1, 250 50 000 ml @ 50 mls/hr IV . Q22H ONE with Sodium Bicarb (1 Meq/ml) 100 ml Rx#:[id number] Oral 240 100 Output: Urine 385 695 280 Other: Voiding Method Indwelling Catheter Indwelling Catheter Indwelling Catheter # Voids 0 - Exam - Constitutional General appearance: Present: average body habitus, cooperative, disheveled - EENT Eyes: Present: abnormal pupil, EOMI, PERRLA, normal appearance Ears: bilateral: normal - Neck Carotids: bilateral: upstroke normal Thyroid: bilateral: normal size - Respiratory Respiratory: bilateral: diminished more so on the right side compared left side - Cardiovascular Rhythm: regular Heart sounds: normal: S1, S2 - Gastrointestinal General gastrointestinal: Present: normal bowel sounds - Neurologic Neurologic: Present: CNII-XII intact - Musculoskeletal Musculoskeletal: Present: gait normal, generalized weakness, strength equal bilaterally - Psychiatric Psychiatric: Present: A&O x's 3, appropriate affect, intact judgment & insight - Labs CBC & Chem 7: 05/01/19 13:22 05/01/19 13:22 Labs: Abnormal Lab Results - Last 24 Hours (Table) 04/30/19 04/30/19 04/30/19 Range/Units 04:24 17:58 17:58 WBC (3.8-10.6) k/uL RBC (4.30-5.90) m/uL Hgb (13.0-17.5) gm/dL Hct (39.0-53.0) % MCHC (31.0-37.0) g/dL Neutrophils # (1.3-7.7) k/uL Neutrophils # (Manual) (1.3-7.7) k/uL Monocytes # (Manual) (0-1.0) k/uL Metamyelocytes # (Man) (0) k/uL Myelocytes # (Manual) (0) k/uL PT (9.0-12.0) sec INR (<1.2) APTT (22.0-30.0) sec ABG pH (7.35-7.45) ABG pCO2 (35-45) mmHg ABG pO2 (83-108) mmHg ABG HCO3 (21-25) mmol/L ABG Total CO2 (19-24) mmol/L ABG O2 Saturation (94-97) % Sodium (137-145) mmol/L Potassium 5.4 H (3.5-5.1) mmol/L Carbon Dioxide (22-30) mmol/L BUN (9-20) mg/dL Creatinine (0.66-1.25) mg/dL Glucose (74-99) mg/dL Plasma Lactic Acid Russ 3.3 H* (0.7-2.0) mmol/L Calcium (8.4-10.2) mg/dL Iron 47 L (65-175) ug/dL AST (17-59) U/L ALT (4-49) U/L Total Protein (6.3-8.2) g/dL Albumin (3.5-5.0) g/dL Urine Protein (Negative) Urine Ketones (Negative) Urine Blood (Negative) Ur Leukocyte Esterase (Negative) Urine RBC (0-5) /hpf Urine WBC (0-5) /hpf Urine WBC Clumps (None) /hpf Amorphous Sediment (None) /hpf Urine Bacteria (None) /hpf Urine Mucus (None) /hpf 04/30/19 04/30/19 05/01/19 Range/Units 18:34 22:30 06:20 WBC 26.2 H (3.8-10.6) k/uL RBC 2.60 L (4.30-5.90) m/uL Hgb 7.2 L (13.0-17.5) gm/dL Hct 23.9 L (39.0-53.0) % MCHC 30.1 L (31.0-37.0) g/dL Neutrophils # 22.9 H (1.3-7.7) k/uL Neutrophils # (Manual) (1.3-7.7) k/uL Monocytes # (Manual) (0-1.0) k/uL Metamyelocytes # (Man) (0) k/uL Myelocytes # (Manual) (0) k/uL PT (9.0-12.0) sec INR (<1.2) APTT 34.3 H (22.0-30.0) sec ABG pH (7.35-7.45) ABG pCO2 (35-45) mmHg ABG pO2 (83-108) mmHg ABG HCO3 (21-25) mmol/L ABG Total CO2 (19-24) mmol/L ABG O2 Saturation (94-97) % Sodium (137-145) mmol/L Potassium (3.5-5.1) mmol/L Carbon Dioxide (22-30) mmol/L BUN (9-20) mg/dL Creatinine (0.66-1.25) mg/dL Glucose (74-99) mg/dL Plasma Lactic Acid Russ (0.7-2.0) mmol/L Calcium (8.4-10.2) mg/dL Iron (65-175) ug/dL AST (17-59) U/L ALT (4-49) U/L Total Protein (6.3-8.2) g/dL Albumin (3.5-5.0) g/dL Urine Protein 1+ H (Negative) Urine Ketones Trace H (Negative) Urine Blood Moderate H (Negative) Ur Leukocyte Esterase Moderate H (Negative) Urine RBC 93 H (0-5) /hpf Urine WBC 18 H (0-5) /hpf Urine WBC Clumps Rare H (None) /hpf Amorphous Sediment Occasional H (None) /hpf Urine Bacteria Rare H (None) /hpf Urine Mucus Occasional H (None) /hpf 05/01/19 05/01/19 05/01/19 Range/Units 06:20 06:20 13:22 WBC 27.9 H (3.8-10.6) k/uL RBC 2.69 L (4.30-5.90) m/uL Hgb 7.7 L (13.0-17.5) gm/dL Hct 24.6 L (39.0-53.0) % MCHC (31.0-37.0) g/dL Neutrophils # (1.3-7.7) k/uL Neutrophils # (Manual) 24.20 H (1.3-7.7) k/uL Monocytes # (Manual) 1.12 H (0-1.0) k/uL Metamyelocytes # (Man) 0.28 H (0) k/uL Myelocytes # (Manual) 0.28 H (0) k/uL PT (9.0-12.0) sec INR (<1.2) APTT 65.4 H (22.0-30.0) sec ABG pH (7.35-7.45) ABG pCO2 (35-45) mmHg ABG pO2 (83-108) mmHg ABG HCO3 (21-25) mmol/L ABG Total CO2 (19-24) mmol/L ABG O2 Saturation (94-97) % Sodium 135 L (137-145) mmol/L Potassium (3.5-5.1) mmol/L Carbon Dioxide 19 L (22-30) mmol/L BUN 33 H (9-20) mg/dL Creatinine 2.22 H (0.66-1.25) mg/dL Glucose (74-99) mg/dL Plasma Lactic Acid Russ (0.7-2.0) mmol/L Calcium 7.8 L (8.4-10.2) mg/dL Iron (65-175) ug/dL AST 417 H (17-59) U/L ALT 442 H (4-49) U/L Total Protein 5.3 L (6.3-8.2) g/dL Albumin 2.4 L (3.5-5.0) g/dL Urine Protein (Negative) Urine Ketones (Negative) Urine Blood (Negative) Ur Leukocyte Esterase (Negative) Urine RBC (0-5) /hpf Urine WBC (0-5) /hpf Urine WBC Clumps (None) /hpf Amorphous Sediment (None) /hpf Urine Bacteria (None) /hpf Urine Mucus (None) /hpf 05/01/19 05/01/19 05/01/19 Range/Units 13:22 13:22 13:49 WBC (3.8-10.6) k/uL RBC (4.30-5.90) m/uL Hgb (13.0-17.5) gm/dL Hct (39.0-53.0) % MCHC (31.0-37.0) g/dL Neutrophils # (1.3-7.7) k/uL Neutrophils # (Manual) (1.3-7.7) k/uL Monocytes # (Manual) (0-1.0) k/uL Metamyelocytes # (Man) (0) k/uL Myelocytes # (Manual) (0) k/uL PT (9.0-12.0) sec INR (<1.2) APTT (22.0-30.0) sec ABG pH 7.51 H (7.35-7.45) ABG pCO2 17 L* (35-45) mmHg ABG pO2 171 H (83-108) mmHg ABG HCO3 13 L (21-25) mmol/L ABG Total CO2 14 L (19-24) mmol/L ABG O2 Saturation 99.3 H (94-97) % Sodium 132 L (137-145) mmol/L Potassium 5.4 H (3.5-5.1) mmol/L Carbon Dioxide 15 L (22-30) mmol/L BUN 34 H (9-20) mg/dL Creatinine 2.39 H (0.66-1.25) mg/dL Glucose 139 H (74-99) mg/dL Plasma Lactic Acid Russ 5.4 H* (0.7-2.0) mmol/L Calcium 8.3 L (8.4-10.2) mg/dL Iron (65-175) ug/dL AST 412 H (17-59) U/L ALT 460 H (4-49) U/L Total Protein 5.7 L (6.3-8.2) g/dL Albumin 2.7 L (3.5-5.0) g/dL Urine Protein (Negative) Urine Ketones (Negative) Urine Blood (Negative) Ur Leukocyte Esterase (Negative) Urine RBC (0-5) /hpf Urine WBC (0-5) /hpf Urine WBC Clumps (None) /hpf Amorphous Sediment (None) /hpf Urine Bacteria (None) /hpf Urine Mucus (None) /hpf 05/01/19 Range/Units 14:16 WBC (3.8-10.6) k/uL RBC (4.30-5.90) m/uL Hgb (13.0-17.5) gm/dL Hct (39.0-53.0) % MCHC (31.0-37.0) g/dL Neutrophils # (1.3-7.7) k/uL Neutrophils # (Manual) (1.3-7.7) k/uL Monocytes # (Manual) (0-1.0) k/uL Metamyelocytes # (Man) (0) k/uL Myelocytes # (Manual) (0) k/uL PT 14.1 H (9.0-12.0) sec INR 1.4 H (<1.2) APTT (22.0-30.0) sec ABG pH (7.35-7.45) ABG pCO2 (35-45) mmHg ABG pO2 (83-108) mmHg ABG HCO3 (21-25) mmol/L ABG Total CO2 (19-24) mmol/L ABG O2 Saturation (94-97) % Sodium (137-145) mmol/L Potassium (3.5-5.1) mmol/L Carbon Dioxide (22-30) mmol/L BUN (9-20) mg/dL Creatinine (0.66-1.25) mg/dL Glucose (74-99) mg/dL Plasma Lactic Acid Russ (0.7-2.0) mmol/L Calcium (8.4-10.2) mg/dL Iron (65-175) ug/dL AST (17-59) U/L ALT (4-49) U/L Total Protein (6.3-8.2) g/dL Albumin (3.5-5.0) g/dL Urine Protein (Negative) Urine Ketones (Negative) Urine Blood (Negative) Ur Leukocyte Esterase (Negative) Urine RBC (0-5) /hpf Urine WBC (0-5) /hpf Urine WBC Clumps (None) /hpf Amorphous Sediment (None) /hpf Urine Bacteria (None) /hpf Urine Mucus (None) /hpf Microbiology - Last 24 Hours (Table) 04/30/19 11:32 Blood Culture - Preliminary Blood No Growth after 24 hours 04/30/19 20:15 Gram Stain - Preliminary Sputum Sputum Culture - Preliminary 04/30/19 15:05 Gram Stain - Preliminary Pleural Fluid Body Fluid Culture - Preliminary 04/30/19 15:05 Anaerobic Culture - Preliminary Pleural Fluid 04/30/19 15:05 Fungal Culture - Preliminary Pleural Fluid 04/30/19 15:05 Acid Fast Bacilli Culture - Preliminary Pleural Fluid Assessment and Plan Assessment: Suspect hypotensive episode with transient visceral ischemia causing elevated liver enzymes, renal function, lactic acidosis and hyperkalemia Patient had another episode earlier today, try to avoid hypertensive We'll DC verapamil and enter parameters for beta blockers Moderate to severe hyperkalemia Elevated liver enzymes Developing right-sided pleural effusion mild to moderate A. fib with rapid rapid ventricular response Acute exacerbation of diastolic heart failure Right lower lobe pneumonia Pleural effusion likely related to fluid overload and diastolic heart failure with A. fib Status post splenectomy Sepsis due to pneumonia Plan: We'll give IV fluids normal saline 200 mL/h for 4 hours Kayexalate 31 and 1 mg IV 1 Bicarb drip Meds reviewed and will DC potential hepatotoxic medicines Continue IV heparin Pleural fluid findings reviewed Continue to avoid medicine that could contribute to hypertension and liver injury Keep blood pressure map over 65-75 Antibiotics IV Cardiology consultation and recommendation results reviewed Further plan of care as per clinical response of the patient Critical care time spent 35 minutes Time with Patient: Greater than 30
--- NOTE | 2019-05-01 16:04 | XR ---
EXAMINATION TYPE: XR chest 1V DATE OF EXAM: 05/01/2019 COMPARISON: 05/01/2019 HISTORY: PICC placement TECHNIQUE: Single frontal view of the chest is obtained. FINDINGS: New right-sided PICC is in placed terminating in the high right atrium. No postprocedural pneumothorax. Otherwise stable exam with right midlung airspace disease. Enlarged cardiomediastinal s ilhouette, and small right pleural effusion with masslike opacity along the right heart border. Left lower lobe pulmonary nodule is redemonstrated. IMPRESSION: Insertion of a right-sided PICC terminating in the high right atrium, otherwise stable e xam.
[2019-05-01] MEDS: NOREPINEPHRINE 4 MG in SODIUM CHLORIDE 0.9% 250 ML IV SCH ×2 (16:24→21:27)
[2019-05-01] MEDS: PROPOFOL 1,000 MG in EMPTY BAG 1 BAG IV SCH ×2 (17:00→19:39)
[2019-05-01] MEDS: HYDROmorphone 0.5 MG/0.5 ML SYRINGE IVP PRN (17:10)
[2019-05-01] MEDS ORDERED: CISATRACURIUM 2 MG/ML 5 ML VIAL IV ONE (17:23)
--- NOTE | 2019-05-01 17:51 | XR ---
EXAMINATION TYPE: XR chest 1V portable DATE OF EXAM: 05/01/2019 COMPARISON: 05/01/2019 at 4:00 PM HISTORY: Check line placement TECHNIQUE: Single view FINDINGS: There is endotracheal tube 5 cm from the [place]. There is right central venous catheter wit h the tip in the top of the right atrium. No pneumothorax. There is right lower lobe airspace infiltr ate and right pleural effusion. Heart is enlarged. There is no gross heart failure. There is rounded density over the left lower lobe probably nipple shadow. There are chest leads. There is nasogastric tube in the stomach. IMPRESSION: Right lower lobe pneumonia and right pleural fluid unchanged compared to exam 2 hours ago . The tubing in fairly good position.
[2019-05-01 18:17] LABS: ABG Base Excess -12.3 mmol/L; ABG HCO3 14 mmol/L (21-25); ABG Oxygen Saturation 99.5 % (94-97); ABG PCO2 27 mmHg (35-45); ABG PH 7.32 (7.35-7.45); ABG PO2 >400 mmHg (83-108); ABG TCO2 15 mmol/L (19-24); Allen Test Performed? Yes
[2019-05-01] MEDS: SODIUM CHLORIDE 0.9% 1,000 ML IV SCH (19:12)
[2019-05-01] MEDS: RIVAROXABAN 15 MG TAB PO SCH ×2 (19:26→19:48)
[2019-05-01 20:26] LABS: HCT 24.9 % (39.0-53.0); HGB 7.9 gm/dL (13.0-17.5); Hypochromasia Slight; MCH 28.6 pg (25.0-35.0); MCHC 31.6 g/dL (31.0-37.0); MCV 90.7 fL (80.0-100.0); Mean Platelet Volume 8.8; Platelet Count 399 k/uL (150-450); RBC 2.75 m/uL (4.30-5.90); RDW 15.7 % (11.5-15.5); WBC 35.8 k/uL (3.8-10.6)
[2019-05-01 20:37] LABS: Calcium 7.8 mg/dL (8.4-10.2); Potassium 5.7 mmol/L (3.5-5.1)
--- NOTE | 2019-05-01 20:56 | PN ---
PROGRESS NOTE Patient was seen early this morning. At that time he was awake. He was getting quite anxious and was trying to get out of bed. Blood pressure had dropped slightly to about 85 to 90 mmHg after patient received his verapamil. Urine output had been at about 75 to 80 mL/hour. Renal function had improved, with creatinine down to about 2.2 from 2.3 yesterday. However, it appears that over the course of the day patient's condition deteriorated. He was quite tachypneic and acidotic. Patient was eventually intubated. The bicarb drip had been increased to about 200 mL/hour for 4 to 5 hours. Urine output has dropped now to zero to 5 mL/hour. Lactic acid level was elevated at 11.4. No obvious bleeding is noted. However, hemoglobin is low at about 7.7 g/dL. White cell count is staying up at 27.9. On examination this morning when patient was awake, blood pressure was 87/65, heart rate was about 107 per minute. Patient was afebrile. EXAMINATION OF THE HEART: S1 and S2. EXAMINATION OF LUNGS: Decreased breath sounds at bases. ABDOMEN: Soft, non-tender. Examination of lower extremities showed no significant edema. 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 Labs this morning showed sodium was 135, potassium 4.6, chloride 105. CO2 is 19, BUN 33, serum creatinine 2.2. AST and ALT 417 and 442. Hemoglobin was 7.2 g/dL. ASSESSMENT: 1. Acute kidney injury secondary to acute tubular necrosis, currently oliguric, mainly ischemic acute tubular necrosis from hypotension and hypoperfusion. Vancomycin is now discontinued. 2. Hyperkalemia associated with acute kidney injury, metabolic acidosis, now improved. However, I expect the potassium to go up again, as patient currently has no urine output and he continues to be severely acidotic. 3. Metabolic acidosis anion gap secondary to lactic acidosis and renal failure. 4. Elevated liver enzymes secondary to hypoperfusion. 5. Diastolic congestive heart failure, ejection fraction 60% to 65%. 6. Pneumonia, right-sided, maintained on empiric antibiotics. 7. Anemia. No obvious bleeding noted. Iron studies were ordered and iron saturation was at 18% with ferritin of 77 yesterday. PLAN: Continue with the bicarb drip. Repeat labs this evening. If the patient remains oliguric and persistently acidotic or becomes hyperkalemic again, he will need dialysis. Check CT of the abdomen and pelvis either tonight or tomorrow morning. MMODL / IJN: [id number] /
[2019-05-01 21:10] LABS: Band Neutrophils % 4 %; Lymphocytes # (M) 1.43 k/uL (1.0-4.8); Metamyelocytes # (M) 0.72 k/uL (0); Metamyelocytes % 2 %; Monocytes # (M) 0.72 k/uL (0-1.0); Myelocytes # (M) 0.36 k/uL (0); Myelocytes % 1 %; Neutrophils % (M) 88 %; Nucleated Red Blood Cells 0 /100 WBC (0-0); Polychromasia Present; Total Cells Counted 200; Toxic Granulation Present
[2019-05-01 21:11] LABS: Large Platelets Present; Poikilocytosis (M) Present; Target Cells Present
[2019-05-01] MEDS: CHLORHEXIDINE GLUCONATE 15 ML CUP MUCOUS MEM SCH (21:30)
[2019-05-01] MEDS: PRAVASTATIN SODIUM 20 MG TAB PO SCH (21:51)
[2019-05-01] MEDS: QUEtiapine 100 MG TAB PO SCH (21:52)
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
[2019-05-01] MEDS: HEPARIN SOD,PORK IN 0.45% NACL 25,000 UNIT in 0.45% NACL 1 250ML.BAG IV SCH (22:09)
[2019-05-01] MEDS ORDERED: INSULIN REGULAR 100 UNIT/ML VIAL IV ONE (22:30)
[2019-05-01] MEDS ORDERED: DEXTROSE 10 % IN WATER 250 ML IV STA (22:34)
[2019-05-02 00:16] LABS: Glucose,Whole Blood 282 mg/dL (75-99)
[2019-05-02] MEDS: PIPERACILLIN-TAZOBACTAM 3.375 GM in SODIUM CHLORIDE 0.9% 100 ML IVPB SCH ×4 (01:00→23:28)
[2019-05-02 01:03] LABS: Alpha Fetoprotein, Tumor Mkr <2.5 ng/mL (0.0-7.9)
[2019-05-02] MEDS: LORazepam 2 MG/ML INJ IV PRN (02:00)
[2019-05-02] MEDS: PROPOFOL 1,000 MG in EMPTY BAG 1 BAG IV SCH ×6 (02:52→23:21)
[2019-05-02] MEDS: SODIUM CHLORIDE 0.9% 1,000 ML IV SCH ×3 (02:53→19:21)
[2019-05-02] MEDS: NOREPINEPHRINE 4 MG in SODIUM CHLORIDE 0.9% 250 ML IV SCH (03:56)
[2019-05-02 04:13] LABS: ABG Base Excess -1.1 mmol/L; ABG HCO3 23 mmol/L (21-25); ABG Oxygen Saturation 99.2 % (94-97); ABG PCO2 31 mmHg (35-45); ABG PH 7.47 (7.35-7.45); ABG PO2 178 mmHg (83-108); ABG TCO2 24 mmol/L (19-24)
[2019-05-02 04:19] LABS: Allen Test Performed? no
[2019-05-02 04:21] LABS: Basophils # (A) 0.1 k/uL (0-0.2); Basophils % (A) 0 %; Eosinophils # (A) 0.1 k/uL (0-0.7); Eosinophils % (A) 0 %; HCT 23.3 % (39.0-53.0); HGB 7.5 gm/dL (13.0-17.5); Lymphocytes # (A) 1.3 k/uL (1.0-4.8); Lymphocytes % (A) 5 %; MCH 28.8 pg (25.0-35.0); MCHC 32.3 g/dL (31.0-37.0); MCV 89.2 fL (80.0-100.0); Mean Platelet Volume 8.8; Monocytes # (A) 0.8 k/uL (0-1.0); Monocytes % (A) 3 %; Neutrophils # (A) 24.5 k/uL (1.3-7.7); Neutrophils % (A) 91 %; Platelet Count 389 k/uL (150-450); RBC 2.61 m/uL (4.30-5.90); RDW 15.8 % (11.5-15.5); WBC 26.9 k/uL (3.8-10.6)
[2019-05-02 04:35] LABS: Albumin 2.4 g/dL (3.5-5.0); Calcium 7.5 mg/dL (8.4-10.2); Potassium 4.3 mmol/L (3.5-5.1); Total Bilirubin 0.3 mg/dL (0.2-1.3); Total Protein 5.1 g/dL (6.3-8.2)
[2019-05-02] MEDS ORDERED: HEPARIN SODIUM,PORCINE 5,000 UNIT/ML 1 ML VIAL IV PRN (05:28)
[2019-05-02] MEDS: MIDODRINE 5 MG TAB PO SCH ×2 (07:12→18:05)
--- NOTE | 2019-05-02 07:28 | XR ---
EXAMINATION TYPE: XR chest 1V portable DATE OF EXAM: 05/02/2019 COMPARISON: 05/01/2019 HISTORY: SOB, Follow Up FINDINGS: Indwelling tubes and catheters are unchanged. Infiltrate right mid and right lower lung zone associated effusion is essentially unchanged. Stable appearance of the cardio-mediastinal structures at this time. Pleural effusion unchanged. IMPRESSION: 1. Stable portable chest. Clinical correlation and follow up until resolution is recommended.
--- NOTE | 2019-05-02 07:33 | P.PN ---
Subjective Progress Note Date: 05/02/19 Principal diagnosis: Long-standing persistent atrial fibrillation This is a very pleasant 68-year-old gentleman with a past medical history significant for long-standing persistent atrial fibrillation as well as chronic kidney disease who was admitted to the hospital with pneumonia. We consulted initially to see the patient for atypical chest discomfort. The workup came in to be unremarkable. We signed off on the patient. Subsequently the patient last night the lobe respiratory distress and he was transferred to intensive care unit. The patient was seen today, May 022019. He developed respiratory distress yesterday and because of that he was intubated and currently is on mechanical ventilation. Also he is hypothermic. The chest x-ray showed what it seems to be possible pneumonia. WBC is elevated. Lactic acid is elevated as well. Currently he is on also norepinephrine for hypertension. Beside that the liver function test came in to be also elevated. Objective - Vital Signs Vital signs: Vital Signs Temp 93.6 F L 05/02/19 07:00 Pulse 81 05/02/19 07:00 Resp 20 05/02/19 07:00 BP 125/95 05/02/19 07:00 Pulse Ox 100 05/02/19 07:00 Intake & Output 05/01/19 05/02/19 05/02/19 18:59 06:59 18:59 Intake Total 5644.182 8527.017 175 Output Total 280 3045 250 Balance 1185.690 214.017 -75 Weight 92.8 kg Intake: IV 1350 2625 175 Dextrose 10 % in Water 250 250 ml @ 999 mls/hr IV ONCE [facility] Rx#:[id number] Linezolid 600 mg In 150 300 Dextrose/Water 1 300ml. bag @ 150 mls/hr IVPB Q12HR [facility] Rx#:[id number] Piperacillin-Tazobactam 3 100 100 .375 gm In Sodium Chloride 0.9% 100 ml @ 25 mls/hr IVPB Q8HR [facility] Rx# :[id number] Sodium Chloride 0.45% 1, 1100 600 50 000 ml @ 50 mls/hr IV . Q22H ONE with Sodium Bicarb (1 Meq/ml) 100 ml Rx#:[id number] Sodium Chloride 0.9% 1, 1375 125 000 ml @ 125 mls/hr IV . Q8H [facility] Rx#:[id number] Intake, IV Titration 115.690 634.017 Amount Heparin Sod,Pork in 0.45% 71.223 NaCl 25,000 unit In 0.45 % NaCl 1 250ml.bag @ 10 UNITS/KG/HR 9.19 mls/hr IV .Q24H [facility] Rx#: [id number] Norepinephrine 4 mg In 102.824 312.708 Sodium Chloride 0.9% 250 ml @ 0.05 MCG/KG/MIN 17. 507 mls/hr IV .[id number] [facility] Rx#:[id number] Propofol 1,000 mg In 12.866 250.086 Empty Bag 1 bag @ Titrate IV .Q0M [facility] Rx#: [id number] Output: Urine 280 3045 250 Other: Voiding Method Indwelling Catheter Indwelling Catheter # Voids 0 ABP, PAP, CO, CI - Last Documented Arterial Blood Pressure 110/62 - Constitutional General appearance: Present: no acute distress - Respiratory Respiratory: bilateral: CTA - Cardiovascular Rhythm: irregularly irregular Heart sounds: normal: S1, S2 - Labs CBC & Chem 7: 05/02/19 04:05 05/02/19 04:05 Labs: Abnormal Lab Results - Last 24 Hours (Table) 05/01/19 05/01/19 05/01/19 Range/Units 06:20 13:22 13:22 WBC 26.2 H 27.9 H (3.8-10.6) k/uL RBC 2.60 L 2.69 L (4.30-5.90) m/uL Hgb 7.2 L 7.7 L (13.0-17.5) gm/dL Hct 23.9 L 24.6 L (39.0-53.0) % MCHC 30.1 L (31.0-37.0) g/dL RDW (11.5-15.5) % Neutrophils # 22.9 H (1.3-7.7) k/uL Neutrophils # (Manual) 24.20 H (1.3-7.7) k/uL Monocytes # (Manual) 1.12 H (0-1.0) k/uL Metamyelocytes # (Man) 0.28 H (0) k/uL Myelocytes # (Manual) 0.28 H (0) k/uL PT (9.0-12.0) sec INR (<1.2) APTT (22.0-30.0) sec ABG pH (7.35-7.45) ABG pCO2 (35-45) mmHg ABG pO2 (83-108) mmHg ABG HCO3 (21-25) mmol/L ABG Total CO2 (19-24) mmol/L ABG O2 Saturation (94-97) % Sodium 132 L (137-145) mmol/L Potassium 5.4 H (3.5-5.1) mmol/L Carbon Dioxide 15 L (22-30) mmol/L BUN 34 H (9-20) mg/dL Creatinine 2.39 H (0.66-1.25) mg/dL Glucose 139 H (74-99) mg/dL POC Glucose (mg/dL) (75-99) mg/dL Plasma Lactic Acid Russ (0.7-2.0) mmol/L Calcium 8.3 L (8.4-10.2) mg/dL AST 412 H (17-59) U/L ALT 460 H (4-49) U/L Total Protein 5.7 L (6.3-8.2) g/dL Albumin 2.7 L (3.5-5.0) g/dL 05/01/19 05/01/19 05/01/19 Range/Units 13:22 13:49 14:16 WBC (3.8-10.6) k/uL RBC (4.30-5.90) m/uL Hgb (13.0-17.5) gm/dL Hct (39.0-53.0) % MCHC (31.0-37.0) g/dL RDW (11.5-15.5) % Neutrophils # (1.3-7.7) k/uL Neutrophils # (Manual) (1.3-7.7) k/uL Monocytes # (Manual) (0-1.0) k/uL Metamyelocytes # (Man) (0) k/uL Myelocytes # (Manual) (0) k/uL PT 14.1 H (9.0-12.0) sec INR 1.4 H (<1.2) APTT (22.0-30.0) sec ABG pH 7.51 H (7.35-7.45) ABG pCO2 17 L* (35-45) mmHg ABG pO2 171 H (83-108) mmHg ABG HCO3 13 L (21-25) mmol/L ABG Total CO2 14 L (19-24) mmol/L ABG O2 Saturation 99.3 H (94-97) % Sodium (137-145) mmol/L Potassium (3.5-5.1) mmol/L Carbon Dioxide (22-30) mmol/L BUN (9-20) mg/dL Creatinine (0.66-1.25) mg/dL Glucose (74-99) mg/dL POC Glucose (mg/dL) (75-99) mg/dL Plasma Lactic Acid Russ 5.4 H* (0.7-2.0) mmol/L Calcium (8.4-10.2) mg/dL AST (17-59) U/L ALT (4-49) U/L Total Protein (6.3-8.2) g/dL Albumin (3.5-5.0) g/dL 05/01/19 05/01/19 05/01/19 Range/Units 17:11 18:15 20:15 WBC (3.8-10.6) k/uL RBC (4.30-5.90) m/uL Hgb (13.0-17.5) gm/dL Hct (39.0-53.0) % MCHC (31.0-37.0) g/dL RDW (11.5-15.5) % Neutrophils # (1.3-7.7) k/uL Neutrophils # (Manual) (1.3-7.7) k/uL Monocytes # (Manual) (0-1.0) k/uL Metamyelocytes # (Man) (0) k/uL Myelocytes # (Manual) (0) k/uL PT (9.0-12.0) sec INR (<1.2) APTT (22.0-30.0) sec ABG pH 7.32 L (7.35-7.45) ABG pCO2 27 L (35-45) mmHg ABG pO2 >400 H (83-108) mmHg ABG HCO3 14 L (21-25) mmol/L ABG Total CO2 15 L (19-24) mmol/L ABG O2 Saturation 99.5 H (94-97) % Sodium 131 L (137-145) mmol/L Potassium 5.7 H (3.5-5.1) mmol/L Carbon Dioxide 19 L (22-30) mmol/L BUN 38 H (9-20) mg/dL Creatinine 2.54 H (0.66-1.25) mg/dL Glucose 162 H (74-99) mg/dL POC Glucose (mg/dL) (75-99) mg/dL Plasma Lactic Acid Russ 11.4 H* (0.7-2.0) mmol/L Calcium 7.8 L (8.4-10.2) mg/dL AST (17-59) U/L ALT (4-49) U/L Total Protein (6.3-8.2) g/dL Albumin (3.5-5.0) g/dL 05/01/19 05/02/19 05/02/19 Range/Units 20:15 00:13 04:05 WBC 35.8 H 26.9 H (3.8-10.6) k/uL RBC 2.75 L 2.61 L (4.30-5.90) m/uL Hgb 7.9 L 7.5 L (13.0-17.5) gm/dL Hct 24.9 L 23.3 L (39.0-53.0) % MCHC (31.0-37.0) g/dL RDW 15.7 H 15.8 H (11.5-15.5) % Neutrophils # 24.5 H (1.3-7.7) k/uL Neutrophils # (Manual) 32.90 H (1.3-7.7) k/uL Monocytes # (Manual) (0-1.0) k/uL Metamyelocytes # (Man) 0.72 H (0) k/uL Myelocytes # (Manual) 0.36 H (0) k/uL PT (9.0-12.0) sec INR (<1.2) APTT (22.0-30.0) sec ABG pH (7.35-7.45) ABG pCO2 (35-45) mmHg ABG pO2 (83-108) mmHg ABG HCO3 (21-25) mmol/L ABG Total CO2 (19-24) mmol/L ABG O2 Saturation (94-97) % Sodium (137-145) mmol/L Potassium (3.5-5.1) mmol/L Carbon Dioxide (22-30) mmol/L BUN (9-20) mg/dL Creatinine (0.66-1.25) mg/dL Glucose (74-99) mg/dL POC Glucose (mg/dL) 282 H (75-99) mg/dL Plasma Lactic Acid Russ (0.7-2.0) mmol/L Calcium (8.4-10.2) mg/dL AST (17-59) U/L ALT (4-49) U/L Total Protein (6.3-8.2) g/dL Albumin (3.5-5.0) g/dL 05/02/19 05/02/19 05/02/19 Range/Units 04:05 04:05 04:13 WBC (3.8-10.6) k/uL RBC (4.30-5.90) m/uL Hgb (13.0-17.5) gm/dL Hct (39.0-53.0) % MCHC (31.0-37.0) g/dL RDW (11.5-15.5) % Neutrophils # (1.3-7.7) k/uL Neutrophils # (Manual) (1.3-7.7) k/uL Monocytes # (Manual) (0-1.0) k/uL Metamyelocytes # (Man) (0) k/uL Myelocytes # (Manual) (0) k/uL PT (9.0-12.0) sec INR (<1.2) APTT 37.3 H (22.0-30.0) sec ABG pH 7.47 H (7.35-7.45) ABG pCO2 31 L (35-45) mmHg ABG pO2 178 H (83-108) mmHg ABG HCO3 (21-25) mmol/L ABG Total CO2 (19-24) mmol/L ABG O2 Saturation 99.2 H (94-97) % Sodium 132 L (137-145) mmol/L Potassium (3.5-5.1) mmol/L Carbon Dioxide (22-30) mmol/L BUN 36 H (9-20) mg/dL Creatinine 2.30 H (0.66-1.25) mg/dL Glucose 155 H (74-99) mg/dL POC Glucose (mg/dL) (75-99) mg/dL Plasma Lactic Acid Russ (0.7-2.0) mmol/L Calcium 7.5 L (8.4-10.2) mg/dL AST 1049 H (17-59) U/L ALT 942 H (4-49) U/L Total Protein 5.1 L (6.3-8.2) g/dL Albumin 2.4 L (3.5-5.0) g/dL Microbiology - Last 24 Hours (Table) 04/30/19 15:05 Acid Fast Bacilli Smear - Final Pleural Fluid Acid Fast Bacilli Culture - Preliminary 04/30/19 15:05 Gram Stain - Preliminary Pleural Fluid Body Fluid Culture - Preliminary 04/30/19 11:32 Blood Culture - Preliminary Blood No Growth after 24 hours 04/30/19 20:15 Gram Stain - Preliminary Sputum Sputum Culture - Preliminary Assessment and Plan Assessment: Assessment #1 long-standing persistent atrial fibrillation was controlled heart rate #2 acute respiratory failure #3 pneumonia #4 right pleural effusion #5 acute on chronic renal failure #6 electrolytes imbalance Plan #1 continue hemodynamic support #2 continue IV heparin #3 follow-up with the patient The prognosis overall is very poor
--- NOTE | 2019-05-02 07:57 | IR ---
EXAMINATION TYPE: IR cvc insert >=5 years DATE OF EXAM: 05/01/2019 COMPARISON: NONE HISTORY: Needs long-term intravenous access for therapy, hydration, pressor administration FINDINGS: Maximal barrier technique was utilized. Hand hygiene obtained with soap and water and alco hol-based hand rub. The skin overlying the right basilic vein was localized with ultrasound and noted to be compressible and patent by ultrasound. An ultrasound image was obtained and submitted on bharati ent's chart. Sterile technique utilized with the ultrasound machine. The skin overlying was prepped a nd draped and Lidocaine used for local anesthesia. A skin mariajose was made with a scalpel. Access was gained to the vein under direct ultrasound guidance with a 21-gauge needle and a 0.018 inch wire was advanced. Access site was dilated with a peel-away sheath and the catheter tailored to length. Cath eter advanced centrally and a post procedure chest x-ray verified placement with the tip in the right atrium. Catheter was fixed to the skin with suture and a sterile dressing placed. Hemostasis achie renzo and the catheter was aspirated and flushed with sterile saline. The patient remained in stable c ondition. IMPRESSION: STATUS POST ULTRASOUND GUIDED PICC LINE PLACEMENT, READY FOR USE. THIS PROCEDURE WAS PER FORMED BY THE UNDERSIGNED.
[2019-05-02] MEDS: PANTOPRAZOLE 40 MG/10 ML VIAL IVP SCH (09:55)
[2019-05-02] MEDS: CHLORHEXIDINE GLUCONATE 15 ML CUP MUCOUS MEM SCH ×2 (09:55→20:46)
[2019-05-02] MEDS: MULTIVITAMINS, THERA 1 EACH TAB PO SCH (09:56)
[2019-05-02] MEDS: NYSTATIN 100,000 UNIT/ML SUSP 500,000 UNIT/5 ML CUP PO SCH ×4 (09:56→21:02)
[2019-05-02] MEDS: FERROUS SULFATE 325 MG TAB PO SCH ×2 (09:56→20:46)
[2019-05-02] MEDS: LINEZOLID 600 MG in DEXTROSE/WATER 1 300ML.BAG IVPB SCH ×2 (09:57→20:47)
[2019-05-02] MEDS: METOPROLOL TARTRATE 25 MG TAB PO SCH ×3 (09:57→21:00)
[2019-05-02 11:10] LABS: Ceruloplasmin 27.9 mg/dL (20.0-60.0)
--- NOTE | 2019-05-02 11:31 | PN ---
PROGRESS NOTE Patient is seen for followup for acute kidney injury. Patient deteriorated yesterday and he was intubated. He had poor urine output for a few hours; however, as his blood pressure improved, urine output has picked up now and currently patient is at about 100- 125 mL an hour. He remains on the vent. Levophed is down significantly from yesterday. FiO2 is at 40%. PHYSICAL EXAMINATION: On examination, blood pressure currently 107/81, heart rate 93 per minute, patient is afebrile. Examination of the heart S1, S2. Examination of the lungs, bilateral breath sounds are heard. Abdomen is soft, nontender. Examination of the lower extremities shows no significant edema. INFORMATION SERVICES TECH exam cannot be performed. Patient is sedated. LABS: Show hemoglobin 7.5, sodium 132, potassium 4.3, chloride 102, BUN 36, creatinine 2.3, AST 1049, ALT 942, cortisol was 47, albumin 2.4. ASSESSMENT: 1. Acute kidney injury, acute tubular necrosis, ischemic, oliguric yesterday, currently nonoliguric with significant improvement in urine output with improved blood pressures. 2. Hyperkalemia associated with acute kidney injury, improved with improving urine output. 3. Ventilator-dependent respiratory failure, currently patient remains on the vent. 4. Shocked liver from hypotension, hypoperfusion. 5. Lactic acidosis, now improved. Lactic acid was as high as 11.4, currently down to 2.0. PLAN: Hold off on IV Lasix. Continue with IV fluids. Discontinue the IV bicarb. Repeat labs this evening. Continue empiric antibiotics. MMODL / IJN: [id number] /
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
[2019-05-02 11:48] LABS: Glucose,Whole Blood 150 mg/dL (75-99)
[2019-05-02] MEDS ORDERED: AMIODARONE 360 MG in DEXTROSE 5% IN WATER 200 ML IV ONE ×2 (12:45)
[2019-05-02] MEDS ORDERED: DEXTROSE 5% IN WATER 100 ML with AMIODARONE 150 MG IV ONE (12:45)
[2019-05-02 13:52] LABS: Liver/Kidney Microsome Antibod 1.3 UNITS (<=20)
--- NOTE | 2019-05-02 14:46 | PN ---
PROGRESS NOTE DATE OF SERVICE: 05/02/2019 REASON FOR FOLLOWUP: Pneumonia. INTERVAL HISTORY: The patient did have a worsening respiratory status; however, despite he ended up getting intubated. The patient has been hypothermic and is on low-dose pressors support. FiO2 is currently 40%. No significant at the time of intubation and no other change in clinical condition has been : PHYSICAL EXAMINATION: Blood pressure 123/81 with a pulse 105, temperature 98, 98% on 40% FiO2. General description is an elderly male, intubated on the vent. RESPIRATORY SYSTEM: Unlabored breathing with no wheeze. HEART: S1, S2. Regular rate and rhythm. ABDOMEN: Soft, no tenderness. EXTREMITIES: No edema of the feet. LABS: Hemoglobin 7.5, white count 6, down from yesterday. BUN of 36, creatinine 2.30. Blood culture has been negative, so far culture has been negative. Pleural fluid cultures so far are negative. DIAGNOSTIC IMPRESSION AND PLAN: Patient with acute respiratory failure, likely multifactorial in this patient with possible pneumonia. He is broadly covered with Zosyn and linezolid. Continue adjusting metformin with follow the culture report. Blood culture and sputum culture was repeated. Continue supportive care. MMODL / IJN: [id number] /
[2019-05-02] MEDS: AMIODARONE 300 MG in DEXTROSE 5% IN WATER 250 ML IV SCH ×2 (19:21)
[2019-05-02] MEDS: HEPARIN SOD,PORK IN 0.45% NACL 25,000 UNIT in 0.45% NACL 1 250ML.BAG IV SCH (19:54)
[2019-05-02] MEDS ORDERED: INSULIN ASPART (NovoLOG) 100 UNIT/ML VIAL SQ SCH (20:00)
[2019-05-02 20:09] LABS: Glucose,Whole Blood 131 mg/dL (75-99)
[2019-05-02] MEDS: PRAVASTATIN SODIUM 20 MG TAB PO SCH (20:47)
[2019-05-02] MEDS: QUEtiapine 100 MG TAB PO SCH (20:47)
[2019-05-02 23:51] LABS: Glucose,Whole Blood 138 mg/dL (75-99)
[2019-05-03] MEDS: INSULIN ASPART (NovoLOG) 100 UNIT/ML VIAL SQ SCH ×4 (00:01→17:09)
[2019-05-03] MEDS: NOREPINEPHRINE 4 MG in SODIUM CHLORIDE 0.9% 250 ML IV SCH (00:06)
[2019-05-03] MEDS: PROPOFOL 1,000 MG in EMPTY BAG 1 BAG IV SCH ×5 (02:12→17:06)
[2019-05-03] MEDS: SODIUM CHLORIDE 0.9% 1,000 ML IV SCH ×3 (02:13→21:31)
[2019-05-03 05:37] LABS: ABG Base Excess -0.9 mmol/L; ABG HCO3 22 mmol/L (21-25); ABG Oxygen Saturation 99.4 % (94-97); ABG PCO2 27 mmHg (35-45); ABG PH 7.52 (7.35-7.45); ABG PO2 147 mmHg (83-108); ABG TCO2 23 mmol/L (19-24); Allen Test Performed? Yes
[2019-05-03 05:41] LABS: Anisocytosis Slight; HCT 22.4 % (39.0-53.0); Hypochromasia Slight; MCH 27.5 pg (25.0-35.0); MCHC 30.5 g/dL (31.0-37.0); MCV 90.2 fL (80.0-100.0); Mean Platelet Volume 8.5; Platelet Count 369 k/uL (150-450); RBC 2.48 m/uL (4.30-5.90); RDW 16.3 % (11.5-15.5)
[2019-05-03 05:50] LABS: Albumin 1.9 g/dL (3.5-5.0); Calcium 7.2 mg/dL (8.4-10.2); Potassium 3.8 mmol/L (3.5-5.1); Total Bilirubin 0.3 mg/dL (0.2-1.3); Total Protein 4.5 g/dL (6.3-8.2)
[2019-05-03] MEDS: AMIODARONE 300 MG in DEXTROSE 5% IN WATER 250 ML IV SCH ×2 (05:51)
[2019-05-03 05:57] LABS: Glucose,Whole Blood 108 mg/dL (75-99)
[2019-05-03] MEDS ORDERED: Potassium Replacement Protocol 1 EACH MISC MISCELLANE PRN (06:14)
[2019-05-03 06:17] LABS: HGB 6.8 gm/dL (13.0-17.5)
--- NOTE | 2019-05-03 06:28 | P.PN ---
Subjective Progress Note Date: 05/02/19 Principal diagnosis: Elevated liver enzymes Patient seen lying in bed, intubated and sedated. Case discussed with the patient's sister. Objective - Vital Signs Vital signs: Vital Signs Temp 89.8 F L 05/02/19 12:30 Pulse 105 H 05/02/19 13:00 Resp 20 05/02/19 13:00 BP 123/81 05/02/19 13:00 Pulse Ox 98 05/02/19 13:00 Intake & Output 05/01/19 05/02/19 05/02/19 18:59 06:59 18:59 Intake Total 4046.423 7839.017 1443 Output Total 280 3045 910 Balance 1185.690 214.017 533 Weight 92.8 kg 92.8 kg Intake: IV 1350 2625 1343 Dextrose 10 % in Water 250 250 ml @ 999 mls/hr IV ONCE [facility] Rx#:[id number] Linezolid 600 mg In 150 300 300 Dextrose/Water 1 300ml. bag @ 150 mls/hr IVPB Q12HR [facility] Rx#:[id number] Piperacillin-Tazobactam 3 100 100 100 .375 gm In Sodium Chloride 0.9% 100 ml @ 25 mls/hr IVPB Q8HR [facility] Rx# :[id number] Pressure bag 18 Sodium Chloride 0.45% 1, 1100 600 50 000 ml @ 50 mls/hr IV . Q22H ONE with Sodium Bicarb (1 Meq/ml) 100 ml Rx#:[id number] Sodium Chloride 0.9% 1, 1375 875 000 ml @ 125 mls/hr IV . Q8H [facility] Rx#:[id number] Intake, IV Titration 115.690 634.017 100 Amount Heparin Sod,Pork in 0.45% 71.223 NaCl 25,000 unit In 0.45 % NaCl 1 250ml.bag @ 10 UNITS/KG/HR 9.19 mls/hr IV .Q24H [facility] Rx#: [id number] Norepinephrine 4 mg In 102.824 312.708 Sodium Chloride 0.9% 250 ml @ 0.05 MCG/KG/MIN 17. 507 mls/hr IV .[id number] [facility] Rx#:[id number] Propofol 1,000 mg In 12.866 250.086 100 Empty Bag 1 bag @ Titrate IV .Q0M [facility] Rx#: [id number] Output: Urine 280 3045 910 Other: Voiding Method Indwelling Catheter Indwelling Catheter # Voids 0 ABP, PAP, CO, CI - Last Documented Arterial Blood Pressure 113/64 - Exam On physical examination, patient appears comfortable in no apparent distress. HEAD: Normocephalic, atraumatic. EYES: No scleral icterus. No conjunctival injection. MOUTH: No lesions, tongue midline, endotracheal tube in place. NECK: Trachea midline, no gross abnormalities. CHEST: Coarse respiratory noises in all lung muniz secondary to mechanical respirations. HEART: Regular rate and rhythm. ABDOMEN: Soft, nontender. Bowel sounds are positive. No organomegaly. No guarding or rigidity. EXTREMITIES: +1 pedal edema. SKIN: No rashes, no jaundice. NEUROLOGIC: Intubated and sedated. - Labs CBC & Chem 7: 05/03/19 05:15 05/03/19 05:15 Labs: Abnormal Lab Results - Last 24 Hours (Table) 04/30/19 04/30/19 05/01/19 Range/Units 03:55 17:58 13:22 WBC 27.9 H (3.8-10.6) k/uL RBC 2.69 L (4.30-5.90) m/uL Hgb 7.7 L (13.0-17.5) gm/dL Hct 24.6 L (39.0-53.0) % RDW (11.5-15.5) % Neutrophils # (1.3-7.7) k/uL Neutrophils # (Manual) 24.20 H (1.3-7.7) k/uL Monocytes # (Manual) 1.12 H (0-1.0) k/uL Metamyelocytes # (Man) 0.28 H (0) k/uL Myelocytes # (Manual) 0.28 H (0) k/uL PT (9.0-12.0) sec INR (<1.2) APTT (22.0-30.0) sec ABG pH (7.35-7.45) ABG pCO2 (35-45) mmHg ABG pO2 (83-108) mmHg ABG HCO3 (21-25) mmol/L ABG Total CO2 (19-24) mmol/L ABG O2 Saturation (94-97) % Sodium (137-145) mmol/L Potassium (3.5-5.1) mmol/L Carbon Dioxide (22-30) mmol/L BUN (9-20) mg/dL Creatinine (0.66-1.25) mg/dL Glucose (74-99) mg/dL POC Glucose (mg/dL) (75-99) mg/dL Plasma Lactic Acid Russ (0.7-2.0) mmol/L Calcium (8.4-10.2) mg/dL AST (17-59) U/L ALT (4-49) U/L Total Protein (6.3-8.2) g/dL Albumin (3.5-5.0) g/dL Kejei-9-Gtrhtuyypoo 253.0 H (99.0-242.0) mg/dL Anti-Mitochondrial Ab 25.2 H (<=20) UNITS 05/01/19 05/01/19 05/01/19 Range/Units 14:16 17:11 18:15 WBC (3.8-10.6) k/uL RBC (4.30-5.90) m/uL Hgb (13.0-17.5) gm/dL Hct (39.0-53.0) % RDW (11.5-15.5) % Neutrophils # (1.3-7.7) k/uL Neutrophils # (Manual) (1.3-7.7) k/uL Monocytes # (Manual) (0-1.0) k/uL Metamyelocytes # (Man) (0) k/uL Myelocytes # (Manual) (0) k/uL PT 14.1 H (9.0-12.0) sec INR 1.4 H (<1.2) APTT (22.0-30.0) sec ABG pH 7.32 L (7.35-7.45) ABG pCO2 27 L (35-45) mmHg ABG pO2 >400 H (83-108) mmHg ABG HCO3 14 L (21-25) mmol/L ABG Total CO2 15 L (19-24) mmol/L ABG O2 Saturation 99.5 H (94-97) % Sodium (137-145) mmol/L Potassium (3.5-5.1) mmol/L Carbon Dioxide (22-30) mmol/L BUN (9-20) mg/dL Creatinine (0.66-1.25) mg/dL Glucose (74-99) mg/dL POC Glucose (mg/dL) (75-99) mg/dL Plasma Lactic Acid Russ 11.4 H* (0.7-2.0) mmol/L Calcium (8.4-10.2) mg/dL AST (17-59) U/L ALT (4-49) U/L Total Protein (6.3-8.2) g/dL Albumin (3.5-5.0) g/dL Engyc-9-Xzmbrtlnsoh (99.0-242.0) mg/dL Anti-Mitochondrial Ab (<=20) UNITS 05/01/19 05/01/19 05/02/19 Range/Units 20:15 20:15 00:13 WBC 35.8 H (3.8-10.6) k/uL RBC 2.75 L (4.30-5.90) m/uL Hgb 7.9 L (13.0-17.5) gm/dL Hct 24.9 L (39.0-53.0) % RDW 15.7 H (11.5-15.5) % Neutrophils # (1.3-7.7) k/uL Neutrophils # (Manual) 32.90 H (1.3-7.7) k/uL Monocytes # (Manual) (0-1.0) k/uL Metamyelocytes # (Man) 0.72 H (0) k/uL Myelocytes # (Manual) 0.36 H (0) k/uL PT (9.0-12.0) sec INR (<1.2) APTT (22.0-30.0) sec ABG pH (7.35-7.45) ABG pCO2 (35-45) mmHg ABG pO2 (83-108) mmHg ABG HCO3 (21-25) mmol/L ABG Total CO2 (19-24) mmol/L ABG O2 Saturation (94-97) % Sodium 131 L (137-145) mmol/L Potassium 5.7 H (3.5-5.1) mmol/L Carbon Dioxide 19 L (22-30) mmol/L BUN 38 H (9-20) mg/dL Creatinine 2.54 H (0.66-1.25) mg/dL Glucose 162 H (74-99) mg/dL POC Glucose (mg/dL) 282 H (75-99) mg/dL Plasma Lactic Acid Russ (0.7-2.0) mmol/L Calcium 7.8 L (8.4-10.2) mg/dL AST (17-59) U/L ALT (4-49) U/L Total Protein (6.3-8.2) g/dL Albumin (3.5-5.0) g/dL Nvwdg-9-Cmgkjgwdykz (99.0-242.0) mg/dL Anti-Mitochondrial Ab (<=20) UNITS 05/02/19 05/02/19 05/02/19 Range/Units 04:05 04:05 04:05 WBC 26.9 H (3.8-10.6) k/uL RBC 2.61 L (4.30-5.90) m/uL Hgb 7.5 L (13.0-17.5) gm/dL Hct 23.3 L (39.0-53.0) % RDW 15.8 H (11.5-15.5) % Neutrophils # 24.5 H (1.3-7.7) k/uL Neutrophils # (Manual) (1.3-7.7) k/uL Monocytes # (Manual) (0-1.0) k/uL Metamyelocytes # (Man) (0) k/uL Myelocytes # (Manual) (0) k/uL PT (9.0-12.0) sec INR (<1.2) APTT 37.3 H (22.0-30.0) sec ABG pH (7.35-7.45) ABG pCO2 (35-45) mmHg ABG pO2 (83-108) mmHg ABG HCO3 (21-25) mmol/L ABG Total CO2 (19-24) mmol/L ABG O2 Saturation (94-97) % Sodium 132 L (137-145) mmol/L Potassium (3.5-5.1) mmol/L Carbon Dioxide (22-30) mmol/L BUN 36 H (9-20) mg/dL Creatinine 2.30 H (0.66-1.25) mg/dL Glucose 155 H (74-99) mg/dL POC Glucose (mg/dL) (75-99) mg/dL Plasma Lactic Acid Russ (0.7-2.0) mmol/L Calcium 7.5 L (8.4-10.2) mg/dL AST 1049 H (17-59) U/L ALT 942 H (4-49) U/L Total Protein 5.1 L (6.3-8.2) g/dL Albumin 2.4 L (3.5-5.0) g/dL Neycv-5-Ccyarghcubs (99.0-242.0) mg/dL Anti-Mitochondrial Ab (<=20) UNITS 05/02/19 05/02/19 05/02/19 Range/Units 04:13 11:45 12:44 WBC (3.8-10.6) k/uL RBC (4.30-5.90) m/uL Hgb (13.0-17.5) gm/dL Hct (39.0-53.0) % RDW (11.5-15.5) % Neutrophils # (1.3-7.7) k/uL Neutrophils # (Manual) (1.3-7.7) k/uL Monocytes # (Manual) (0-1.0) k/uL Metamyelocytes # (Man) (0) k/uL Myelocytes # (Manual) (0) k/uL PT (9.0-12.0) sec INR (<1.2) APTT 53.5 H (22.0-30.0) sec ABG pH 7.47 H (7.35-7.45) ABG pCO2 31 L (35-45) mmHg ABG pO2 178 H (83-108) mmHg ABG HCO3 (21-25) mmol/L ABG Total CO2 (19-24) mmol/L ABG O2 Saturation 99.2 H (94-97) % Sodium (137-145) mmol/L Potassium (3.5-5.1) mmol/L Carbon Dioxide (22-30) mmol/L BUN (9-20) mg/dL Creatinine (0.66-1.25) mg/dL Glucose (74-99) mg/dL POC Glucose (mg/dL) 150 H (75-99) mg/dL Plasma Lactic Acid Russ (0.7-2.0) mmol/L Calcium (8.4-10.2) mg/dL AST (17-59) U/L ALT (4-49) U/L Total Protein (6.3-8.2) g/dL Albumin (3.5-5.0) g/dL Uhliz-8-Cacqcvuoaal (99.0-242.0) mg/dL Anti-Mitochondrial Ab (<=20) UNITS Microbiology - Last 24 Hours (Table) 04/30/19 11:32 Blood Culture - Preliminary Blood No Growth after 48 hours 05/01/19 23:10 Urine Culture - Preliminary Urine,Catheterized 04/30/19 15:05 Acid Fast Bacilli Smear - Final Pleural Fluid Acid Fast Bacilli Culture - Preliminary 04/30/19 15:05 Gram Stain - Preliminary Pleural Fluid Body Fluid Culture - Preliminary Assessment and Plan (1) Elevated liver enzymes Narrative/Plan: 68-year-old currently receiving treatment for her atrial fibrillation and suspected pneumonia was found to have elevation in liver enzymes and predominantly hepatocellular pattern. Liver enzymes initially normal on presentation subsequently patient was found to have elevation in AST to 478 yesterday and ALT to 259. No prior history of elevated liver enzymes. The patient has had exposures to antibiotics known to cause elevated liver enzymes, with antibiotic regimen currently modified. Ultrasound of the abdomen also showed some gallbladder wall thickening and cholelithiasis with patient currently receiving antibiotic coverage for gram-negative and anaerobic bacteria. No reports of abdominal pain or dilated bile ducts to suggest biliary pathology. Suspicion is for medication related effect or hypoperfusion in the setting of chronic liver disease, with full serology ordered to rule out underlying intrinsic liver disease negative to date. Current Visit: Yes Status: Acute Code(s): R74.8 - ABNORMAL LEVELS OF OTHER SERUM ENZYMES SNOMED Code(s): 335889343 (2) Normocytic normochromic anemia Narrative/Plan: Normocytic normochromic anemia with normal iron saturation and slightly depressed total iron level and normal nutritional studies. Likely related to chronic disease. Hemoglobin has remained stable during hospitalization. Current Visit: Yes Status: Acute Code(s): D64.9 - ANEMIA, UNSPECIFIED SNOMED Code(s): 59577674 Plan: Supportive care Okay for diet as tolerated Continue to monitor CBC, CMP Computed tomography scan abdomen and ultrasound abdomen reviewed Continue to trend liver enzymes Full liver serologies ordered, and negative to date Continue broad-spectrum antibiotic therapy No plans for endoscopic evaluation at this time Continue treatment of atrial fibrillation and pneumonia per the consulting services and primary team Thank you for allowing us to participate in the care of the patient we will continue to follow
[2019-05-03] MEDS: MIDODRINE 5 MG TAB PO SCH ×2 (06:44→17:07)
[2019-05-03 06:53] LABS: Band Neutrophils % 1 %; Lymphocytes # (M) 3.05 k/uL (1.0-4.8); Metamyelocytes # (M) 0.22 k/uL (0); Metamyelocytes % 1 %; Monocytes # (M) 0.44 k/uL (0-1.0); Neutrophils % (M) 83 %; Nucleated Red Blood Cells 2 /100 WBC (0-0); Total Cells Counted 200; WBC 21.8 k/uL (3.8-10.6)
[2019-05-03 06:54] LABS: Poikilocytosis (M) Present; Polychromasia Present; Target Cells Present
[2019-05-03 06:56] LABS: Large Platelets Present
[2019-05-03] MEDS ORDERED: POTASSIUM BICARBONATE/CIT AC 20 MEQ TABLET.EFF NG-TUBE SCH (07:00)
--- NOTE | 2019-05-03 07:44 | P.PN ---
Subjective Progress Note Date: 05/03/19 Principal diagnosis: Long-standing persistent atrial fibrillation This is a very pleasant 68-year-old gentleman with a past medical history significant for long-standing persistent atrial fibrillation as well as chronic kidney disease who was admitted to the hospital with pneumonia. We consulted initially to see the patient for atypical chest discomfort. The workup came in to be unremarkable. We signed off on the patient. Subsequently the patient last night the lobe respiratory distress and he was transferred to intensive care unit. The patient was seen today, May [id number]. He continues to be intubated on mechanical ventilation. The hemoglobin this morning came in to be below 7 and because of that the heparin was stopped which I would agree with. His heart rate seems to be controlled on the amiodarone IV and I'm going to DC the amiodarone IV and start the patient on amiodarone by mouth. Overall the prognosis is poor. Objective - Vital Signs Vital signs: Vital Signs Temp 34.8 F L 05/03/19 06:45 Pulse 69 05/03/19 07:00 Resp 20 05/03/19 07:00 BP 122/89 05/03/19 07:00 Pulse Ox 97 05/03/19 07:00 Intake & Output 05/02/19 05/03/19 05/03/19 18:59 06:59 18:59 Intake Total 2461.824 2813.712 292.971 Output Total 1260 1455 40 Balance 6536.508 3964.712 252.971 Weight 92.8 kg 98.3 kg Intake: IV 2082 2035 128 Linezolid 600 mg In 300 300 Dextrose/Water 1 300ml. bag @ 150 mls/hr IVPB Q12HR [facility] Rx#:[id number] Piperacillin-Tazobactam 3 200 200 .375 gm In Sodium Chloride 0.9% 100 ml @ 25 mls/hr IVPB Q8HR [facility] Rx# :[id number] Pressure bag 33 36 3 Sodium Chloride 0.45% 1, 50 000 ml @ 50 mls/hr IV . Q22H ONE with Sodium Bicarb (1 Meq/ml) 100 ml Rx#:[id number] Sodium Chloride 0.9% 1, 1500 1500 125 000 ml @ 125 mls/hr IV . Q8H [facility] Rx#:[id number] Intake, IV Titration 378.824 777.712 164.971 Amount Amiodarone 300 mg In 250 38.333 Dextrose 5% in Water 250 ml @ 0.5 MG/MIN 25 mls/hr IV .Q10H [facility] Rx#: [id number] Heparin Sod,Pork in 0.45% 154.392 126.638 NaCl 25,000 unit In 0.45 % NaCl 1 250ml.bag @ 10 UNITS/KG/HR 9.19 mls/hr IV .Q24H [facility] Rx#: [id number] Norepinephrine 4 mg In 182.776 23.224 Sodium Chloride 0.9% 250 ml @ 0.05 MCG/KG/MIN 17. 507 mls/hr IV .[id number] [facility] Rx#:[id number] Propofol 1,000 mg In 196.048 350.096 Empty Bag 1 bag @ Titrate IV .Q0M [facility] Rx#: [id number] Output: Urine 1260 1455 40 Other: Voiding Method Indwelling Catheter Indwelling Catheter ABP, PAP, CO, CI - Last Documented Arterial Blood Pressure 92/60 - Constitutional General appearance: Present: no acute distress - Respiratory Respiratory: bilateral: CTA - Cardiovascular Rhythm: irregularly irregular Heart sounds: normal: S1, S2 - Labs CBC & Chem 7: 05/03/19 05:15 05/03/19 05:15 Labs: Abnormal Lab Results - Last 24 Hours (Table) 04/30/19 04/30/19 05/02/19 Range/Units 03:55 17:58 11:45 WBC (3.8-10.6) k/uL RBC (4.30-5.90) m/uL Hgb (13.0-17.5) gm/dL Hct (39.0-53.0) % MCHC (31.0-37.0) g/dL RDW (11.5-15.5) % Neutrophils # (Manual) (1.3-7.7) k/uL Metamyelocytes # (Man) (0) k/uL Nucleated RBCs (0-0) /100 WBC APTT (22.0-30.0) sec ABG pH (7.35-7.45) ABG pCO2 (35-45) mmHg ABG pO2 (83-108) mmHg ABG O2 Saturation (94-97) % Sodium (137-145) mmol/L Chloride (98-107) mmol/L Carbon Dioxide (22-30) mmol/L BUN (9-20) mg/dL Creatinine (0.66-1.25) mg/dL POC Glucose (mg/dL) 150 H (75-99) mg/dL Calcium (8.4-10.2) mg/dL AST (17-59) U/L ALT (4-49) U/L Total Protein (6.3-8.2) g/dL Albumin (3.5-5.0) g/dL Yeylr-9-Mqtiwdylpfg 253.0 H (99.0-242.0) mg/dL Anti-Mitochondrial Ab 25.2 H (<=20) UNITS 05/02/19 05/02/19 05/02/19 Range/Units 12:44 14:42 20:07 WBC (3.8-10.6) k/uL RBC (4.30-5.90) m/uL Hgb (13.0-17.5) gm/dL Hct (39.0-53.0) % MCHC (31.0-37.0) g/dL RDW (11.5-15.5) % Neutrophils # (Manual) (1.3-7.7) k/uL Metamyelocytes # (Man) (0) k/uL Nucleated RBCs (0-0) /100 WBC APTT 53.5 H (22.0-30.0) sec ABG pH (7.35-7.45) ABG pCO2 (35-45) mmHg ABG pO2 (83-108) mmHg ABG O2 Saturation (94-97) % Sodium 134 L (137-145) mmol/L Chloride (98-107) mmol/L Carbon Dioxide (22-30) mmol/L BUN (9-20) mg/dL Creatinine (0.66-1.25) mg/dL POC Glucose (mg/dL) 131 H (75-99) mg/dL Calcium (8.4-10.2) mg/dL AST (17-59) U/L ALT (4-49) U/L Total Protein (6.3-8.2) g/dL Albumin (3.5-5.0) g/dL Wxiby-0-Ahacwlsqaor (99.0-242.0) mg/dL Anti-Mitochondrial Ab (<=20) UNITS 05/02/19 05/03/19 05/03/19 Range/Units 23:50 05:15 05:15 WBC 21.8 H (3.8-10.6) k/uL RBC 2.48 L (4.30-5.90) m/uL Hgb 6.8 L* (13.0-17.5) gm/dL Hct 22.4 L (39.0-53.0) % MCHC 30.5 L (31.0-37.0) g/dL RDW 16.3 H (11.5-15.5) % Neutrophils # (Manual) 18.30 H (1.3-7.7) k/uL Metamyelocytes # (Man) 0.22 H (0) k/uL Nucleated RBCs 2 H (0-0) /100 WBC APTT (22.0-30.0) sec ABG pH (7.35-7.45) ABG pCO2 (35-45) mmHg ABG pO2 (83-108) mmHg ABG O2 Saturation (94-97) % Sodium 135 L (137-145) mmol/L Chloride 109 H (98-107) mmol/L Carbon Dioxide 20 L (22-30) mmol/L BUN 28 H (9-20) mg/dL Creatinine 1.74 H (0.66-1.25) mg/dL POC Glucose (mg/dL) 138 H (75-99) mg/dL Calcium 7.2 L (8.4-10.2) mg/dL AST 404 H (17-59) U/L ALT 661 H (4-49) U/L Total Protein 4.5 L (6.3-8.2) g/dL Albumin 1.9 L (3.5-5.0) g/dL Rcnmz-1-Zflpqmosnle (99.0-242.0) mg/dL Anti-Mitochondrial Ab (<=20) UNITS 05/03/19 05/03/19 05/03/19 Range/Units 05:15 05:34 05:55 WBC (3.8-10.6) k/uL RBC (4.30-5.90) m/uL Hgb (13.0-17.5) gm/dL Hct (39.0-53.0) % MCHC (31.0-37.0) g/dL RDW (11.5-15.5) % Neutrophils # (Manual) (1.3-7.7) k/uL Metamyelocytes # (Man) (0) k/uL Nucleated RBCs (0-0) /100 WBC APTT 59.1 H (22.0-30.0) sec ABG pH 7.52 H (7.35-7.45) ABG pCO2 27 L (35-45) mmHg ABG pO2 147 H (83-108) mmHg ABG O2 Saturation 99.4 H (94-97) % Sodium (137-145) mmol/L Chloride (98-107) mmol/L Carbon Dioxide (22-30) mmol/L BUN (9-20) mg/dL Creatinine (0.66-1.25) mg/dL POC Glucose (mg/dL) 108 H (75-99) mg/dL Calcium (8.4-10.2) mg/dL AST (17-59) U/L ALT (4-49) U/L Total Protein (6.3-8.2) g/dL Albumin (3.5-5.0) g/dL Cfbyu-4-Puarciddtqc (99.0-242.0) mg/dL Anti-Mitochondrial Ab (<=20) UNITS Microbiology - Last 24 Hours (Table) 05/02/19 09:25 Gram Stain - Preliminary Sputum Sputum Culture - Preliminary 04/30/19 15:05 Anaerobic Culture - Preliminary Pleural Fluid 04/30/19 15:05 Gram Stain - Preliminary Pleural Fluid Body Fluid Culture - Preliminary 04/30/19 11:32 Blood Culture - Preliminary Blood No Growth after 48 hours 05/01/19 23:10 Urine Culture - Preliminary Urine,Catheterized Assessment and Plan Assessment: Assessment #1 long-standing persistent atrial fibrillation was controlled heart rate #2 acute respiratory failure #3 pneumonia #4 right pleural effusion #5 acute on chronic renal failure #6 electrolytes imbalance Plan #1 continue hemodynamic support #2 DC amiodarone IV and start the patient on amiodarone. #3 follow-up with the patient The prognosis overall is very poor
--- NOTE | 2019-05-03 08:05 | XR ---
EXAMINATION TYPE: XR chest 1V portable DATE OF EXAM: 05/03/2019 COMPARISON: 05/02/2019 INDICATION: Tube placement TECHNIQUE: Single frontal view of the chest is obtained. FINDINGS: The heart size is normal. The pulmonary vasculature is normal. There is an infiltrate on the right greater at the right lung base. This may be worsening slightly ov er the interval PICC line enters on the right with the tip in the right atrium. Endotracheal tube tip is above the [place]. Nasogastric tube transverses the thorax the tip in left upper quadrant of the abdomen. IMPRESSION: 1. Mild worsening of the right lung infiltrate. 2. Multiple lines and catheters discussed above.
[2019-05-03] MEDS: METOPROLOL TARTRATE 25 MG TAB PO SCH ×3 (08:28→21:30)
[2019-05-03] MEDS: PIPERACILLIN-TAZOBACTAM 3.375 GM in SODIUM CHLORIDE 0.9% 100 ML IVPB SCH ×2 (08:34→17:07)
[2019-05-03] MEDS: PANTOPRAZOLE 40 MG/10 ML VIAL IVP SCH (08:34)
[2019-05-03] MEDS: MULTIVITAMINS, THERA 1 EACH TAB PO SCH (08:35)
[2019-05-03] MEDS: FERROUS SULFATE 325 MG TAB PO SCH ×2 (08:35→21:30)
[2019-05-03] MEDS: AMIODARONE 200 MG TAB PO SCH ×2 (08:35→21:30)
[2019-05-03] MEDS: NYSTATIN 100,000 UNIT/ML SUSP 500,000 UNIT/5 ML CUP PO SCH ×4 (08:35→21:31)
[2019-05-03] MEDS: LINEZOLID 600 MG in DEXTROSE/WATER 1 300ML.BAG IVPB SCH ×2 (08:39→21:30)
[2019-05-03] MEDS: CHLORHEXIDINE GLUCONATE 15 ML CUP MUCOUS MEM SCH ×2 (08:39→21:30)
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
[2019-05-03 11:54] LABS: Glucose,Whole Blood 108 mg/dL (75-99)
--- NOTE | 2019-05-03 13:06 | PN ---
PROGRESS NOTE DATE OF SERVICE: 05/03/2019. REASON FOR FOLLOWUP: Pneumonia. INTERVAL HISTORY: The patient is currently afebrile. The patient's temperature has come up to 97. The patient still requires pressor support. FiO2 is currently at 40%. No diarrhea or any other changes in clinical condition have been reported by the nursing staff. PHYSICAL EXAMINATION: Blood pressure 122/84 with a pulse of 86, temperature 97, he is 97% on 40% FiO2. General description is an elderly male lying in bed in no distress. RESPIRATORY SYSTEM: Unlabored breathing. Some coarse breath sounds in the bases. No wheeze. HEART: S1, S2. Regular rate and rhythm. ABDOMEN: Soft. No tenderness. LABS: Hemoglobin 6.9, white count 21.8. Creatinine 1.74. Cultures so far negative. DIAGNOSTIC IMPRESSION AND PLAN: Patient with acute respiratory failure, which is likely multifactorial in this patient with a possible component of pneumonia. The patient is currently broadly covered with Zosyn and Zyvox, to continue. We will watch his clinical course and culture closely. Overall prognosis remains to be guarded. MMODL / IJN: [id number] /
--- NOTE | 2019-05-03 15:27 | P.PN ---
Subjective Progress Note Date: 05/03/19 Principal diagnosis: Delirium Hypotensive episode Intravascular volume depletion and dehydration Pleural effusion A. 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 fib with RVR and hypotension, patient remains on levo fed drip, bicarb drip has been discontinued, heparin has been stopped due to drop in hemoglobin, 05/01/2019, patient seen eval examined during the rounds labs reviewed medi cations reviewed liver functions have been stabilized protection was slightly elevated, patient was fairly stable except for tachycardia which is A. fib with RVR this morning patient placed back on now for optimal along with the beta bernadette with that blood pressure significantly dropped down with that patient becomes confused and agitated the symptoms are consistent with drop in blood pressure along with development of acidosis and developing hyperkalemia patient did require Kayexalate extra dose patient has been resuscitated with fluid arterial blood gases done which revealed respiratory alkalosis along with some metabolic acidosis, would DC where optimal) meters for beta blockers continue to gently hydrate patient chest x-ray reviewed overall stable, it appears that confusion appears with episodes of hypertension which causes global ischemia and rising lactic acidosis renal functions liver functions, white cell count has been coming down we'll continue to monitor patient off of Lasix, Ativan 1 mg have been given for backside T and a prehension will observe closely in ICU continue high flow oxygen 04/30/2019, patient seen eval reexamined during the rounds labs reviewed medications reviewed computed tomography scan of the chest as well as abdomen and the ultrasound reviewed as well, ultrasound is not showing a very large pleural effusion however fluid is present no stare leave the last interventional radiology to do the right-sided thoracentesis, overall patient decompensate and transferred from the floor to ICU it appears that patient has a hypotensive episodes and the laboratory data indicated that as lactic acid went up rotation went up urine functions progressed as well as liver enzymes shot up as well suggestive of possible ongoing for transient visceral ischemia, will DC the Lasix DC where optimal along with Tylenol Atarax continue gently rehydrate the patient heparin drip has been started, will stop it before thoracentesis as per recommendation of INR, continue broad-spectrum antibiotics continue high flow oxygen, regular care time 35 minutes 04/29/2019, patient seen eval examined during the rounds labs reviewed medications reviewed, remains afebrile with controlled ventricular response patient has been on room air but somewhat short of breath though chest x-ray and computed tomography scan have been reviewed there is moderate pleural effusion the right side has been noted, patient is on anticoagulation I have discussed with RN will stop the anticoagulation today and tomorrow and patient will be scheduled for right-sided thoracentesis, I have ordered ultrasound of the chest as well to look into depth and amount of fluid, blood and urine cultures have been positive for E. coli, repeat blood cultures on have been negative, white cell continued to go down slowly 04/27/2019, patient seen eval examined during the rounds chest x-ray from today reviewed slight worsening of pleural effusion has seen, patient has persistent infiltrate in the right lower lobe some reticular density in the left lower lobe is seen as well, patient denies any chest pain intermittent cough is present, white cell count is slowly improving, blood cultures no growth so far, given that patient has a significant history of splenectomy would recommend to contin ue IV antibiotics, would give a dose of vancomycin as well, observe renal functions closely This is a 68-year-old male who presents emergency Department with a past medical history significant for atrial fibrillation. Patient is on eliquis. Patient is status post splenectomy. Patient states since Tuesday after he coughed he's been having some right-sided chest pain is very sharp in nature. Patient states movement definitely makes it worse and coughing definitely makes it worse per patient denies any shortness of breath or difficulty breathing. Patient denies any fever chills. Patient denies any abdominal pain. Patient has nausea vomiting diarrhea. Patient denies any headache patient denies numbness weakness. Patient has any back pain. Patient denies any lightheadedness or dizziness. His repeat chest x-ray shows right basal infiltrate along with effusion slightly progressive worsening is seen along with nodular density in the left base Ammann we'll repeat another chest x-ray tomorrow Objective - Vital Signs Vital signs: Vital Signs Temp 97.7 F 05/03/19 12:00 Pulse 103 H 05/03/19 15:00 Resp 20 05/03/19 15:00 BP 126/83 05/03/19 15:00 Pulse Ox 96 05/03/19 15:00 Intake & Output 05/02/19 05/03/19 05/03/19 18:59 06:59 18:59 Intake Total 2461.824 2813.712 1643.067 Output Total 1260 1455 860 Balance 2241.699 3850.712 783.067 Weight 92.8 kg 98.3 kg Intake: IV 2083 2036 1302 Linezolid 600 mg In 300 300 300 Dextrose/Water 1 300ml. bag @ 150 mls/hr IVPB Q12HR [facility] Rx#:[id number] Piperacillin-Tazobactam 3 200 200 100 .375 gm In Sodium Chloride 0.9% 100 ml @ 25 mls/hr IVPB Q8HR [facility] Rx# :[id number] Pressure bag 33 36 27 Sodium Chloride 0.45% 1, 50 000 ml @ 50 mls/hr IV . Q22H ONE with Sodium Bicarb (1 Meq/ml) 100 ml Rx#:[id number] Sodium Chloride 0.9% 1, 1500 1500 875 000 ml @ 125 mls/hr IV . Q8H [facility] Rx#:[id number] Intake, IV Titration 378.824 777.712 341.067 Amount Amiodarone 300 mg In 250 38.333 Dextrose 5% in Water 250 ml @ 0.5 MG/MIN 25 mls/hr IV .Q10H [facility] Rx#: [id number] Heparin Sod,Pork in 0.45% 154.392 126.638 NaCl 25,000 unit In 0.45 % NaCl 1 250ml.bag @ 10 UNITS/KG/HR 9.19 mls/hr IV .Q24H [facility] Rx#: [id number] Norepinephrine 4 mg In 182.776 23.224 Sodium Chloride 0.9% 250 ml @ 0.05 MCG/KG/MIN 17. 507 mls/hr IV .[id number] [facility] Rx#:[id number] Propofol 1,000 mg In 196.048 350.096 176.096 Empty Bag 1 bag @ Titrate IV .Q0M [facility] Rx#: [id number] Blood Product 0 Rc As-3 Unit 0 [id number] Output: Urine 1260 1455 860 Other: Voiding Method Indwelling Catheter Indwelling Catheter Indwelling Catheter ABP, PAP, CO, CI - Last Documented Arterial Blood Pressure 100/72 - Exam - Constitutional General appearance: Present: Intubated sedated with propofol - EENT Eyes: normal appearance Ears: bilateral: normal - Neck Carotids: bilateral: upstroke normal Thyroid: bilateral: normal size - Respiratory Respiratory: bilateral: diminished more so on the right side compared left side - Cardiovascular Rhythm: regular Heart sounds: normal: S1, S2 - Gastrointestinal General gastrointestinal: Present: normal bowel sounds - Neurologic Neurologic: On full ventilator support with sedation with propofol - Labs CBC & Chem 7: 05/03/19 05:15 05/03/19 05:15 Labs: Abnormal Lab Results - Last 24 Hours (Table) 05/02/19 05/02/19 05/03/19 Range/Units 20:07 23:50 05:15 WBC 21.8 H (3.8-10.6) k/uL RBC 2.48 L (4.30-5.90) m/uL Hgb 6.8 L* (13.0-17.5) gm/dL Hct 22.4 L (39.0-53.0) % MCHC 30.5 L (31.0-37.0) g/dL RDW 16.3 H (11.5-15.5) % Neutrophils # (Manual) 18.30 H (1.3-7.7) k/uL Metamyelocytes # (Man) 0.22 H (0) k/uL Nucleated RBCs 2 H (0-0) /100 WBC APTT (22.0-30.0) sec ABG pH (7.35-7.45) ABG pCO2 (35-45) mmHg ABG pO2 (83-108) mmHg ABG O2 Saturation (94-97) % Sodium (137-145) mmol/L Chloride (98-107) mmol/L Carbon Dioxide (22-30) mmol/L BUN (9-20) mg/dL Creatinine (0.66-1.25) mg/dL POC Glucose (mg/dL) 131 H 138 H (75-99) mg/dL Calcium (8.4-10.2) mg/dL AST (17-59) U/L ALT (4-49) U/L Total Protein (6.3-8.2) g/dL Albumin (3.5-5.0) g/dL Crossmatch 05/03/19 05/03/19 05/03/19 Range/Units 05:15 05:15 05:34 WBC (3.8-10.6) k/uL RBC (4.30-5.90) m/uL Hgb (13.0-17.5) gm/dL Hct (39.0-53.0) % MCHC (31.0-37.0) g/dL RDW (11.5-15.5) % Neutrophils # (Manual) (1.3-7.7) k/uL Metamyelocytes # (Man) (0) k/uL Nucleated RBCs (0-0) /100 WBC APTT 59.1 H (22.0-30.0) sec ABG pH 7.52 H (7.35-7.45) ABG pCO2 27 L (35-45) mmHg ABG pO2 147 H (83-108) mmHg ABG O2 Saturation 99.4 H (94-97) % Sodium 135 L (137-145) mmol/L Chloride 109 H (98-107) mmol/L Carbon Dioxide 20 L (22-30) mmol/L BUN 28 H (9-20) mg/dL Creatinine 1.74 H (0.66-1.25) mg/dL POC Glucose (mg/dL) (75-99) mg/dL Calcium 7.2 L (8.4-10.2) mg/dL AST 404 H (17-59) U/L ALT 661 H (4-49) U/L Total Protein 4.5 L (6.3-8.2) g/dL Albumin 1.9 L (3.5-5.0) g/dL Crossmatch 05/03/19 05/03/19 05/03/19 Range/Units 05:55 06:55 11:51 WBC (3.8-10.6) k/uL RBC (4.30-5.90) m/uL Hgb (13.0-17.5) gm/dL Hct (39.0-53.0) % MCHC (31.0-37.0) g/dL RDW (11.5-15.5) % Neutrophils # (Manual) (1.3-7.7) k/uL Metamyelocytes # (Man) (0) k/uL Nucleated RBCs (0-0) /100 WBC APTT (22.0-30.0) sec ABG pH (7.35-7.45) ABG pCO2 (35-45) mmHg ABG pO2 (83-108) mmHg ABG O2 Saturation (94-97) % Sodium (137-145) mmol/L Chloride (98-107) mmol/L Carbon Dioxide (22-30) mmol/L BUN (9-20) mg/dL Creatinine (0.66-1.25) mg/dL POC Glucose (mg/dL) 108 H 108 H (75-99) mg/dL Calcium (8.4-10.2) mg/dL AST (17-59) U/L ALT (4-49) U/L Total Protein (6.3-8.2) g/dL Albumin (3.5-5.0) g/dL Crossmatch See Detail Microbiology - Last 24 Hours (Table) 04/30/19 11:32 Blood Culture - Preliminary Blood No Growth after 72 hours 05/02/19 09:25 Gram Stain - Preliminary Sputum Sputum Culture - Preliminary 05/02/19 10:45 Blood Culture - Preliminary Blood No Growth after 24 hours 05/01/19 23:10 Urine Culture - Final Urine,Catheterized 04/30/19 20:15 Gram Stain - Final Sputum Sputum Culture - Final 04/30/19 15:05 Anaerobic Culture - Preliminary Pleural Fluid 04/30/19 15:05 Gram Stain - Preliminary Pleural Fluid Body Fluid Culture - Preliminary Assessment and Plan Assessment: Acute on chronic hypoxic respiratory failure Suspect hypotensive episode with transient visceral hypoperfusion causing elevated liver enzymes, renal function, lactic acidosis and hyperkalemia hyperkalemia Elevated liver enzymes Stable right-sided pleural effusion mild to moderate, status post right-sided thoracentesis A. fib with rapid rapid ventricular response Acute exacerbation of diastolic heart failure Right lower lobe pneumonia Pleural effusion likely related to fluid overload and diastolic heart failure with A. fib, with contribution from possible parapneumonic pneumonia Status post splenectomy Sepsis due to pneumonia Plan: We'll start to feed Continue full ventilator support Sedation holiday Titrate vasopressors as tolerated Continue gentle hydration Once off of vasopressors and then will consider weaning trial Monitor renal and liver functions closely Pleural fluid findings reviewed Continue to avoid medicine that could contribute to hypotension and liver injury Keep blood pressure map over 65-75 Antibiotics IV per infectious disease services Cardiology consultation and recommendation results reviewed Further plan of care as per clinical response of the patient Critical care time spent 35 minutes Time with Patient: Greater than 30
[2019-05-03 17:11] LABS: Glucose,Whole Blood 111 mg/dL (75-99)
[2019-05-03] MEDS: PRAVASTATIN SODIUM 20 MG TAB PO SCH (21:30)
[2019-05-03] MEDS: QUEtiapine 100 MG TAB PO SCH (21:31)
--- NOTE | 2019-05-03 22:50 | P.PN ---
Subjective Progress Note Date: 05/03/19 Principal diagnosis: Elevated liver enzymes Patient seen lying in bed, intubated and sedated. Case discussed with the patient's sister. Objective - Vital Signs Vital signs: Vital Signs Temp 36.6 F L 05/03/19 20:00 Pulse 104 H 05/03/19 21:00 Resp 20 05/03/19 21:00 BP 137/103 05/03/19 21:00 Pulse Ox 98 05/03/19 21:00 Intake & Output 05/03/19 05/03/19 05/04/19 06:59 18:59 06:59 Intake Total 2813.712 2127.067 862.520 Output Total 1455 1135 365 Balance 1358.712 992.067 497.520 Weight 98.3 kg 98.3 kg Intake: IV 2036 1686 384 Linezolid 600 mg In 300 300 Dextrose/Water 1 300ml. bag @ 150 mls/hr IVPB Q12HR [facility] Rx#:[id number] Piperacillin-Tazobactam 3 200 100 .375 gm In Sodium Chloride 0.9% 100 ml @ 25 mls/hr IVPB Q8HR [facility] Rx# :[id number] Pressure bag 36 36 9 Sodium Chloride 0.9% 1, 1500 1250 375 000 ml @ 125 mls/hr IV . Q8H [facility] Rx#:[id number] Intake, IV Titration 777.712 441.067 98.520 Amount Amiodarone 300 mg In 250 38.333 Dextrose 5% in Water 250 ml @ 0.5 MG/MIN 25 mls/hr IV .Q10H [facility] Rx#: [id number] Heparin Sod,Pork in 0.45% 154.392 126.638 NaCl 25,000 unit In 0.45 % NaCl 1 250ml.bag @ 10 UNITS/KG/HR 9.19 mls/hr IV .Q24H [facility] Rx#: [id number] Norepinephrine 4 mg In 23.224 44.696 Sodium Chloride 0.9% 250 ml @ 0.05 MCG/KG/MIN 17. 507 mls/hr IV .[id number] [facility] Rx#:[id number] Propofol 1,000 mg In 350.096 276.096 53.824 Empty Bag 1 bag @ Titrate IV .Q0M [facility] Rx#: [id number] Tube Feeding 40 Blood Product 0 310 Rc As-3 Unit 0 310 [id number] Other 30 Output: Urine 1455 1135 365 Other: Voiding Method Indwelling Catheter Indwelling Catheter ABP, PAP, CO, CI - Last Documented Arterial Blood Pressure 158/87 - Exam On physical examination, patient appears comfortable in no apparent distress. HEAD: Normocephalic, atraumatic. EYES: No scleral icterus. No conjunctival injection. MOUTH: No lesions, tongue midline, endotracheal tube in place. NECK: Trachea midline, no gross abnormalities. CHEST: Coarse respiratory noises in all lung muniz secondary to mechanical respirations. HEART: Regular rate and rhythm. ABDOMEN: Soft, nontender. Bowel sounds are positive. No organomegaly. No guarding or rigidity. EXTREMITIES: +1 pedal edema. SKIN: No rashes, no jaundice. NEUROLOGIC: Intubated and sedated. - Labs CBC & Chem 7: 05/03/19 05:15 05/03/19 05:15 Labs: Abnormal Lab Results - Last 24 Hours (Table) 05/02/19 05/03/19 05/03/19 Range/Units 23:50 05:15 05:15 WBC 21.8 H (3.8-10.6) k/uL RBC 2.48 L (4.30-5.90) m/uL Hgb 6.8 L* (13.0-17.5) gm/dL Hct 22.4 L (39.0-53.0) % MCHC 30.5 L (31.0-37.0) g/dL RDW 16.3 H (11.5-15.5) % Neutrophils # (Manual) 18.30 H (1.3-7.7) k/uL Metamyelocytes # (Man) 0.22 H (0) k/uL Nucleated RBCs 2 H (0-0) /100 WBC APTT (22.0-30.0) sec ABG pH (7.35-7.45) ABG pCO2 (35-45) mmHg ABG pO2 (83-108) mmHg ABG O2 Saturation (94-97) % Sodium 135 L (137-145) mmol/L Chloride 109 H (98-107) mmol/L Carbon Dioxide 20 L (22-30) mmol/L BUN 28 H (9-20) mg/dL Creatinine 1.74 H (0.66-1.25) mg/dL POC Glucose (mg/dL) 138 H (75-99) mg/dL Calcium 7.2 L (8.4-10.2) mg/dL AST 404 H (17-59) U/L ALT 661 H (4-49) U/L Total Protein 4.5 L (6.3-8.2) g/dL Albumin 1.9 L (3.5-5.0) g/dL Crossmatch 05/03/19 05/03/19 05/03/19 Range/Units 05:15 05:34 05:55 WBC (3.8-10.6) k/uL RBC (4.30-5.90) m/uL Hgb (13.0-17.5) gm/dL Hct (39.0-53.0) % MCHC (31.0-37.0) g/dL RDW (11.5-15.5) % Neutrophils # (Manual) (1.3-7.7) k/uL Metamyelocytes # (Man) (0) k/uL Nucleated RBCs (0-0) /100 WBC APTT 59.1 H (22.0-30.0) sec ABG pH 7.52 H (7.35-7.45) ABG pCO2 27 L (35-45) mmHg ABG pO2 147 H (83-108) mmHg ABG O2 Saturation 99.4 H (94-97) % Sodium (137-145) mmol/L Chloride (98-107) mmol/L Carbon Dioxide (22-30) mmol/L BUN (9-20) mg/dL Creatinine (0.66-1.25) mg/dL POC Glucose (mg/dL) 108 H (75-99) mg/dL Calcium (8.4-10.2) mg/dL AST (17-59) U/L ALT (4-49) U/L Total Protein (6.3-8.2) g/dL Albumin (3.5-5.0) g/dL Crossmatch 05/03/19 05/03/19 05/03/19 Range/Units 06:55 11:51 17:09 WBC (3.8-10.6) k/uL RBC (4.30-5.90) m/uL Hgb (13.0-17.5) gm/dL Hct (39.0-53.0) % MCHC (31.0-37.0) g/dL RDW (11.5-15.5) % Neutrophils # (Manual) (1.3-7.7) k/uL Metamyelocytes # (Man) (0) k/uL Nucleated RBCs (0-0) /100 WBC APTT (22.0-30.0) sec ABG pH (7.35-7.45) ABG pCO2 (35-45) mmHg ABG pO2 (83-108) mmHg ABG O2 Saturation (94-97) % Sodium (137-145) mmol/L Chloride (98-107) mmol/L Carbon Dioxide (22-30) mmol/L BUN (9-20) mg/dL Creatinine (0.66-1.25) mg/dL POC Glucose (mg/dL) 108 H 111 H (75-99) mg/dL Calcium (8.4-10.2) mg/dL AST (17-59) U/L ALT (4-49) U/L Total Protein (6.3-8.2) g/dL Albumin (3.5-5.0) g/dL Crossmatch See Detail Microbiology - Last 24 Hours (Table) 04/30/19 15:05 Gram Stain - Preliminary Pleural Fluid Body Fluid Culture - Preliminary 04/30/19 11:32 Blood Culture - Preliminary Blood No Growth after 72 hours 05/02/19 09:25 Gram Stain - Preliminary Sputum Sputum Culture - Preliminary 05/02/19 10:45 Blood Culture - Preliminary Blood No Growth after 24 hours 05/01/19 23:10 Urine Culture - Final Urine,Catheterized 04/30/19 20:15 Gram Stain - Final Sputum Sputum Culture - Final 04/30/19 15:05 Anaerobic Culture - Preliminary Pleural Fluid Assessment and Plan (1) Elevated liver enzymes Narrative/Plan: 68-year-old currently receiving treatment for her atrial fibrillation and suspected pneumonia was found to have elevation in liver enzymes and predominantly hepatocellular pattern. Liver enzymes initially normal on presentation subsequently patient was found to have elevation in AST and ALT. No prior history of elevated liver enzymes. The patient has had exposures to antibiotics known to cause elevated liver enzymes, with antibiotic regimen currently modified. Ultrasound of the abdomen also showed some gallbladder wall thickening and cholelithiasis with patient currently receiving antibiotic coverage for gram-negative and anaerobic bacteria. No reports of abdominal pain or dilated bile ducts to suggest biliary pathology. Suspicion is for medication related effect or hypoperfusion in the setting of chronic liver disease, with full serology ordered to rule out underlying intrinsic liver disease negative to date, with mildly elevated antimitochondrial antibody no consistent with predominantly hepatocellular elevation in liver enzymes. Current Visit: Yes Status: Acute Code(s): R74.8 - ABNORMAL LEVELS OF OTHER SERUM ENZYMES SNOMED Code(s): 340861680 (2) Normocytic normochromic anemia Narrative/Plan: Normocytic normochromic anemia with normal iron saturation and slightly depressed total iron level and normal nutritional studies. Likely related to chronic disease. Hemoglobin has remained stable overall during hospitalization, slight fall today and patient is status post transfusion.. Current Visit: Yes Status: Acute Code(s): D64.9 - ANEMIA, UNSPECIFIED SNOMED Code(s): 55402112 Plan: Supportive care Okay for diet as tolerated Continue to monitor CBC, CMP Computed tomography scan abdomen and ultrasound abdomen reviewed Continue to trend liver enzymes Full liver serologies ordered, and negative to date except for mildly elevated antimitochondrial antibody which is not consistent with patient's dominantly hepatocellular elevation of liver Enzymes Continue broad-spectrum antibiotic therapy No plans for endoscopic evaluation at this time Continue treatment of atrial fibrillation and pneumonia per the consulting services and primary team Thank you for allowing us to participate in the care of the patient we will continue to follow
[2019-05-03 23:46] LABS: Glucose,Whole Blood 101 mg/dL (75-99)
[2019-05-04] MEDS: PROPOFOL 1,000 MG in EMPTY BAG 1 BAG IV SCH ×3 (00:27→08:21)
[2019-05-04] MEDS: PIPERACILLIN-TAZOBACTAM 3.375 GM in SODIUM CHLORIDE 0.9% 100 ML IVPB SCH ×3 (00:30→15:22)
[2019-05-04] MEDS: INSULIN ASPART (NovoLOG) 100 UNIT/ML VIAL SQ SCH ×4 (01:53→18:35)
[2019-05-04] MEDS: NOREPINEPHRINE 4 MG in SODIUM CHLORIDE 0.9% 250 ML IV SCH ×2 (01:54→15:22)
[2019-05-04] MEDS: SODIUM CHLORIDE 0.9% 1,000 ML IV SCH ×2 (04:43→10:59)
[2019-05-04 05:27] LABS: ABG Base Excess -1.1 mmol/L; ABG HCO3 22 mmol/L (21-25); ABG Oxygen Saturation 98.8 % (94-97); ABG PCO2 30 mmHg (35-45); ABG PH 7.48 (7.35-7.45); ABG PO2 136 mmHg (83-108); ABG TCO2 23 mmol/L (19-24); Allen Test Performed? Yes
[2019-05-04 05:48] LABS: Anisocytosis Slight; Basophils % (A) 0 %; Eosinophils # (A) 0.1 k/uL (0-0.7); Eosinophils % (A) 1 %; Hypochromasia Slight; Lymphocytes # (A) 1.8 k/uL (1.0-4.8); Lymphocytes % (A) 10 %; MCH 28.7 pg (25.0-35.0); MCHC 31.6 g/dL (31.0-37.0); MCV 90.7 fL (80.0-100.0); Mean Platelet Volume 8.8; Monocytes # (A) 0.8 k/uL (0-1.0); Monocytes % (A) 4 %; Neutrophils # (A) 15.2 k/uL (1.3-7.7); Neutrophils % (A) 84 %; Platelet Count 387 k/uL (150-450); Poikilocytosis Slight; RBC 3.09 m/uL (4.30-5.90); RDW 16.8 % (11.5-15.5); WBC 18.1 k/uL (3.8-10.6)
[2019-05-04 05:49] LABS: HGB 8.9 gm/dL (13.0-17.5)
[2019-05-04 05:50] LABS: Albumin 2.1 g/dL (3.5-5.0); Calcium 7.7 mg/dL (8.4-10.2); Potassium 4.2 mmol/L (3.5-5.1); Total Bilirubin 0.4 mg/dL (0.2-1.3)
[2019-05-04 06:40] LABS: Glucose,Whole Blood 99 mg/dL (75-99)
--- NOTE | 2019-05-04 06:49 | P.PN ---
Subjective Progress Note Date: 05/04/19 Principal diagnosis: Long-standing persistent atrial fibrillation This is a very pleasant 68-year-old gentleman with a past medical history significant for long-standing persistent atrial fibrillation as well as chronic kidney disease who was admitted to the hospital with pneumonia. We consulted initially to see the patient for atypical chest discomfort. The workup came in to be unremarkable. We signed off on the patient. Subsequently the patient last night the lobe respiratory distress and he was transferred to intensive care unit. The patient was seen today, 05/04/2019. Overall clinically he is doing better. His hypothermia has improved. He still intubated on mechanical ventilation but he is not on any vasopressors at this point. He continues to be in atrial fibrillation was controlled heart rate. He is on amiodarone by mouth. Oral anticoagulation was held because of the drop in his hemoglobin. From a cardiovascular standpoint overview, we'll continue the current medical regimen. Objective - Vital Signs Vital signs: Vital Signs Temp 36.5 F L 05/04/19 04:00 Pulse 99 05/04/19 06:00 Resp 20 05/04/19 06:00 BP 136/85 05/04/19 06:00 Pulse Ox 99 05/04/19 06:00 Intake & Output 05/03/19 05/03/19 05/04/19 06:59 18:59 06:59 Intake Total 2813.712 2127.067 2701.679 Output Total 1455 1135 1290 Balance 1358.712 549.428 6311.679 Weight 98.3 kg 98.3 kg 85.3 kg Intake: IV 2036 1686 1936 Linezolid 600 mg In 300 300 300 Dextrose/Water 1 300ml. bag @ 150 mls/hr IVPB Q12HR [facility] Rx#:[id number] Piperacillin-Tazobactam 3 200 100 100 .375 gm In Sodium Chloride 0.9% 100 ml @ 25 mls/hr IVPB Q8HR [facility] Rx# :[id number] Pressure bag 36 36 36 Sodium Chloride 0.9% 1, 1500 1250 1500 000 ml @ 125 mls/hr IV . Q8H [facility] Rx#:[id number] Intake, IV Titration 777.712 441.067 145.679 Amount Amiodarone 300 mg In 250 38.333 Dextrose 5% in Water 250 ml @ 0.5 MG/MIN 25 mls/hr IV .Q10H [facility] Rx#: [id number] Heparin Sod,Pork in 0.45% 154.392 126.638 NaCl 25,000 unit In 0.45 % NaCl 1 250ml.bag @ 10 UNITS/KG/HR 9.19 mls/hr IV .Q24H [facility] Rx#: [id number] Norepinephrine 4 mg In 23.224 44.696 Sodium Chloride 0.9% 250 ml @ 0.05 MCG/KG/MIN 17. 507 mls/hr IV .[id number] [facility] Rx#:[id number] Propofol 1,000 mg In 350.096 276.096 100.983 Empty Bag 1 bag @ Titrate IV .Q0M [facility] Rx#: [id number] Tube Feeding 220 Blood Product 0 310 Rc As-3 Unit 0 310 [id number] Other 90 Output: Urine 1455 1135 1290 Other: Voiding Method Indwelling Catheter Indwelling Catheter Indwelling Catheter ABP, PAP, CO, CI - Last Documented Arterial Blood Pressure 142/77 - Constitutional General appearance: Present: no acute distress - Respiratory Respiratory: bilateral: diminished - Cardiovascular Rhythm: irregularly irregular Heart sounds: normal: S1, S2 - Labs CBC & Chem 7: 05/04/19 05:30 05/04/19 05:30 Labs: Abnormal Lab Results - Last 24 Hours (Table) 05/03/19 05/03/19 05/03/19 Range/Units 05:15 06:55 11:51 WBC 21.8 H (3.8-10.6) k/uL RBC (4.30-5.90) m/uL Hgb (13.0-17.5) gm/dL Hct (39.0-53.0) % RDW (11.5-15.5) % Neutrophils # (1.3-7.7) k/uL Neutrophils # (Manual) 18.30 H (1.3-7.7) k/uL Metamyelocytes # (Man) 0.22 H (0) k/uL Nucleated RBCs 2 H (0-0) /100 WBC ABG pH (7.35-7.45) ABG pCO2 (35-45) mmHg ABG pO2 (83-108) mmHg ABG O2 Saturation (94-97) % Chloride (98-107) mmol/L BUN (9-20) mg/dL Creatinine (0.66-1.25) mg/dL POC Glucose (mg/dL) 108 H (75-99) mg/dL Calcium (8.4-10.2) mg/dL AST (17-59) U/L ALT (4-49) U/L Total Protein (6.3-8.2) g/dL Albumin (3.5-5.0) g/dL Crossmatch See Detail 05/03/19 05/03/19 05/04/19 Range/Units 17:09 23:45 05:21 WBC (3.8-10.6) k/uL RBC (4.30-5.90) m/uL Hgb (13.0-17.5) gm/dL Hct (39.0-53.0) % RDW (11.5-15.5) % Neutrophils # (1.3-7.7) k/uL Neutrophils # (Manual) (1.3-7.7) k/uL Metamyelocytes # (Man) (0) k/uL Nucleated RBCs (0-0) /100 WBC ABG pH 7.48 H (7.35-7.45) ABG pCO2 30 L (35-45) mmHg ABG pO2 136 H (83-108) mmHg ABG O2 Saturation 98.8 H (94-97) % Chloride (98-107) mmol/L BUN (9-20) mg/dL Creatinine (0.66-1.25) mg/dL POC Glucose (mg/dL) 111 H 101 H (75-99) mg/dL Calcium (8.4-10.2) mg/dL AST (17-59) U/L ALT (4-49) U/L Total Protein (6.3-8.2) g/dL Albumin (3.5-5.0) g/dL Crossmatch 05/04/19 05/04/19 Range/Units 05:30 05:30 WBC 18.1 H (3.8-10.6) k/uL RBC 3.09 L (4.30-5.90) m/uL Hgb 8.9 L D (13.0-17.5) gm/dL Hct 28.0 L (39.0-53.0) % RDW 16.8 H (11.5-15.5) % Neutrophils # 15.2 H (1.3-7.7) k/uL Neutrophils # (Manual) (1.3-7.7) k/uL Metamyelocytes # (Man) (0) k/uL Nucleated RBCs (0-0) /100 WBC ABG pH (7.35-7.45) ABG pCO2 (35-45) mmHg ABG pO2 (83-108) mmHg ABG O2 Saturation (94-97) % Chloride 110 H (98-107) mmol/L BUN 21 H (9-20) mg/dL Creatinine 1.45 H (0.66-1.25) mg/dL POC Glucose (mg/dL) (75-99) mg/dL Calcium 7.7 L (8.4-10.2) mg/dL AST 156 H (17-59) U/L ALT 510 H (4-49) U/L Total Protein 5.0 L (6.3-8.2) g/dL Albumin 2.1 L (3.5-5.0) g/dL Crossmatch Microbiology - Last 24 Hours (Table) 04/30/19 15:05 Gram Stain - Preliminary Pleural Fluid Body Fluid Culture - Preliminary 04/30/19 11:32 Blood Culture - Preliminary Blood No Growth after 72 hours 05/02/19 09:25 Gram Stain - Preliminary Sputum Sputum Culture - Preliminary 05/02/19 10:45 Blood Culture - Preliminary Blood No Growth after 24 hours 05/01/19 23:10 Urine Culture - Final Urine,Catheterized 04/30/19 20:15 Gram Stain - Final Sputum Sputum Culture - Final Assessment and Plan Assessment: Assessment #1 long-standing persistent atrial fibrillation was controlled heart rate #2 acute respiratory failure #3 pneumonia #4 right pleural effusion #5 acute on chronic renal failure #6 electrolytes imbalance Plan #1 continue the current medical regimen #2 continue amiodarone by mouth #3 continue holding oral anticoagulation #4 follow-up with the patient
[2019-05-04] MEDS: MIDODRINE 5 MG TAB PO SCH (07:14)
--- NOTE | 2019-05-04 07:28 | XR ---
EXAMINATION TYPE: XR chest 1V portable DATE OF EXAM: 05/04/2019 COMPARISON: 05/03/2019 HISTORY: Ventilatory dependent respiratory failure TECHNIQUE: Single frontal view of the chest is obtained. FINDINGS: Enteric and endotracheal tubes are similar in position to the prior. Enteric tube terminat es off the distal [id number] but is partially obscured by overlying lead. Endotracheal tube termin ates at the level of the aortic arch. Right-sided subclavian approach central venous catheter is also unchanged from the prior. There are increasing small bilateral layering pleural effusions and associated airspace disease. Card iomediastinal silhouette is again enlarged with obscuration of the right atrial border. IMPRESSION: 1. Worsening bilateral small pleural effusions and associated airspace disease. 2. Persistent obscuration of the right atrial border that may represent pneumonia or pulmonary mass.
[2019-05-04] MEDS: AMIODARONE 200 MG TAB PO SCH (08:22)
[2019-05-04] MEDS: FERROUS SULFATE 325 MG TAB PO SCH ×2 (08:22→20:26)
[2019-05-04] MEDS: MULTIVITAMINS, THERA 1 EACH TAB PO SCH (08:22)
[2019-05-04] MEDS: CHLORHEXIDINE GLUCONATE 15 ML CUP MUCOUS MEM SCH (08:22)
[2019-05-04] MEDS: METOPROLOL TARTRATE 25 MG TAB PO SCH (08:22)
[2019-05-04] MEDS: PANTOPRAZOLE 40 MG/10 ML VIAL IVP SCH (08:22)
[2019-05-04] MEDS: LINEZOLID 600 MG in DEXTROSE/WATER 1 300ML.BAG IVPB SCH ×2 (08:23→21:26)
[2019-05-04] MEDS: NYSTATIN 100,000 UNIT/ML SUSP 500,000 UNIT/5 ML CUP PO SCH ×3 (08:24→18:35)
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
[2019-05-04 11:04] LABS: Glucose,Whole Blood 112 mg/dL (75-99)
[2019-05-04] MEDS ORDERED: FUROSEMIDE 10 MG/ML 4 ML VIAL IV STA (13:38)
--- NOTE | 2019-05-04 13:38 | P.PN ---
Subjective Progress Note Date: 05/04/19 (Critical care time 35 minutes) Principal diagnosis: Delirium Hypotensive episode Intravascular volume depletion and dehydration Pleural effusion A. 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 fib with controlled ventricular rate into 80s blood pressure is stable, in 9 is present but standpoint, minimal respiratory secretions are present, mental status is stable, patient is tolerating tube feed well, labs reviewed liver functions continued to improve so as the renal functions as well, patient is getting amiodarone by mouth high dose through the NG tube liver functions remains as stable in fact improving, plan is to put patient on CPAP pressure support and observe closely, white cell count is down to 18,000 from 21,000 hemoglobin is up and stable 8.9 after the transfusion, cultures are so far has been negative, patient is on IV Zosyn 05/03/2019, patient seen eval examined during the rounds, patient remains on full ventilator support also on review fed and propofol, hemoglobin drop down to 6.9 patient is being transfused with 1 unit of packed RBC, posttransfusion sedation holiday will be attempted, currently patient is on assist control of 20 tidal volume 500 rate of 20, PEEP of 5, 40% oxygen, he had adequate urine output labs reviewed renal functions are improving, potassium is normalized, the liver functions are improving as well ALT however remains high, patient likely has a poor perfusion during episodes of A. fib with RVR and hypotension, patient remains on levo fed drip, bicarb drip has been discontinued, heparin has been stopped due to drop in hemoglobin, 05/01/2019, patient seen eval examined during the rounds labs reviewed medications reviewed liver functions have been stabilized protection was slightly elevated, patient was fairly stable except for tachycardia which is A. fib with RVR this morning patient placed back on now for optimal along with the beta bernadette with that blood pressure significantly dropped down with that patient becomes confused and agitated the symptoms are consistent with drop in blood pressure along with development of acidosis and developing hyperkalemia patient did require Kayexalate extra dose patient has been resuscitated with fluid arterial blood gases done which revealed respiratory alkalosis along with some metabolic acidosis, would DC where optimal) meters for beta blockers continue to gently hydrate patient chest x-ray reviewed overall stable, it appears that confusion appears with episodes of hypertension which causes global ischemia and rising lactic acidosis renal functions liver functions, white cell count has been coming down we'll continue to monitor patient off of Lasix, Ativan 1 mg have been given for backside T and a prehension will observe closely in ICU continue high flow oxygen 04/30/2019, patient seen eval reexamined during the rounds labs reviewed medications reviewed computed tomography scan of the chest as well as abdomen and the ultrasound reviewed as well, ultrasound is not showing a very large pleural effusion however fluid is present no stare leave the last interventional radiology to do the right-sided thoracentesis, overall patient decompensate and transferred from the floor to ICU it appears that patient has a hypotensive episodes and the laboratory data indicated that as lactic acid went up rotation went up urine functions progressed as well as liver enzymes shot up as well suggestive of possible ongoing for transient visceral ischemia, will DC the Lasix DC where optimal along with Tylenol Atarax continue gently rehydrate the patient heparin drip has been started, will stop it before thoracentesis as per recommendation of INR, continue broad-spectrum antibiotics continue high flow oxygen, regular care time 35 minutes 04/29/2019, patient seen eval examined during the rounds labs reviewed medications reviewed, remains afebrile with controlled ventricular response patient has been on room air but somewhat short of breath though chest x-ray and computed tomography scan have been reviewed there is moderate pleural effusion the right side has been noted, patient is on anticoagulation I have discussed with RN will stop the anticoagulation today and tomorrow and patient will be scheduled for right-sided thoracentesis, I have ordered ultrasound of the chest as well to look into depth and amount of fluid, blood and urine cultures have been positive for E. coli, repeat blood cultures on have been negative, white cell continued to go down slowly 04/27/2019, patient seen eval examined during the rounds chest x-ray from today reviewed slight worsening of pleural effusion has seen, patient has persistent infiltrate in the right lower lobe some reticular density in the left lower lobe is seen as well, patient denies any chest pain intermittent cough is present, white cell count is slowly improving, blood cultures no growth so far, given that patient has a significant history of splenectomy would recommend to continue IV antibiotics, would give a dose of vancomycin as well, observe renal functions closely This is a 68-year-old male who presents emergency Department with a past medical history significant for atrial fibrillation. Patient is on eliquis. Patient is status post splenectomy. Patient states since Tuesday after he coughed he's been having some right-sided chest pain is very sharp in nature. Patient states movement definitely makes it worse and coughing definitely makes it worse per patient denies any shortness of breath or difficulty breathing. Patient denies any fever chills. Patient denies any abdominal pain. Patient has nausea vomiti ng diarrhea. Patient denies any headache patient denies numbness weakness. Patient has any back pain. Patient denies any lightheadedness or dizziness. His repeat chest x-ray shows right basal infiltrate along with effusion slightly progressive worsening is seen along with nodular density in the left base Ammann we'll repeat another chest x-ray tomorrow Objective - Vital Signs Vital signs: Vital Signs Temp 97.5 F L 05/04/19 08:00 Pulse 90 05/04/19 11:00 Resp 20 05/04/19 11:00 BP 151/110 05/04/19 11:00 Pulse Ox 99 05/04/19 11:00 Intake & Output 05/03/19 05/04/19 05/04/19 18:59 06:59 18:59 Intake Total 2127.067 2701.679 960.653 Output Total 1135 1290 400 Balance 658.381 4215.679 560.653 Weight 98.3 kg 85.3 kg 85.3 kg Intake: IV 1686 1936 585 Linezolid 600 mg In 300 300 Dextrose/Water 1 300ml. bag @ 150 mls/hr IVPB Q12HR [facility] Rx#:[id number] Piperacillin-Tazobactam 3 100 100 .375 gm In Sodium Chloride 0.9% 100 ml @ 25 mls/hr IVPB Q8HR [facility] Rx# :[id number] Pressure bag 36 36 15 Sodium Chloride 0.9% 1, 1250 1500 570 000 ml @ 125 mls/hr IV . Q8H [facility] Rx#:[id number] Intake, IV Titration 441.067 145.679 136.653 Amount Amiodarone 300 mg In 38.333 Dextrose 5% in Water 250 ml @ 0.5 MG/MIN 25 mls/hr IV .Q10H [facility] Rx#: [id number] Heparin Sod,Pork in 0.45% 126.638 NaCl 25,000 unit In 0.45 % NaCl 1 250ml.bag @ 10 UNITS/KG/HR 9.19 mls/hr IV .Q24H [facility] Rx#: [id number] Norepinephrine 4 mg In 44.696 Sodium Chloride 0.9% 250 ml @ 0.05 MCG/KG/MIN 17. 507 mls/hr IV .[id number] [facility] Rx#:[id number] Propofol 1,000 mg In 276.096 100.983 136.653 Empty Bag 1 bag @ Titrate IV .Q0M [facility] Rx#: [id number] Tube Feeding 220 209 Blood Product 0 310 Rc As-3 Unit 0 310 [id number] Other 90 30 Output: Urine 1135 1290 400 Other: Voiding Method Indwelling Catheter Indwelling Catheter Indwelling Catheter ABP, PAP, CO, CI - Last Documented Arterial Blood Pressure 104/86 - Exam - Constitutional General appearance: Present: Intubated off of sedation opens eyes follow simple commands- EENT Eyes: normal appearance Ears: bilateral: normal - Neck Carotids: bilateral: upstroke normal Thyroid: bilateral: normal size - Respiratory Respiratory: bilateral: diminished more so on the right side compared left side - Cardiovascular Rhythm: regular Heart sounds: normal: S1, S2 - Gastrointestinal General gastrointestinal: Present: normal bowel sounds - Neurologic Neurologic: On full ventilator support - Labs CBC & Chem 7: 05/04/19 05:30 05/04/19 05:30 Labs: Abnormal Lab Results - Last 24 Hours (Table) 05/03/19 05/03/19 05/03/19 Range/Units 06:55 17:09 23:45 WBC (3.8-10.6) k/uL RBC (4.30-5.90) m/uL Hgb (13.0-17.5) gm/dL Hct (39.0-53.0) % RDW (11.5-15.5) % Neutrophils # (1.3-7.7) k/uL ABG pH (7.35-7.45) ABG pCO2 (35-45) mmHg ABG pO2 (83-108) mmHg ABG O2 Saturation (94-97) % Chloride (98-107) mmol/L BUN (9-20) mg/dL Creatinine (0.66-1.25) mg/dL POC Glucose (mg/dL) 111 H 101 H (75-99) mg/dL Calcium (8.4-10.2) mg/dL AST (17-59) U/L ALT (4-49) U/L Total Protein (6.3-8.2) g/dL Albumin (3.5-5.0) g/dL Crossmatch See Detail 05/04/19 05/04/19 05/04/19 Range/Units 05:21 05:30 05:30 WBC 18.1 H (3.8-10.6) k/uL RBC 3.09 L (4.30-5.90) m/uL Hgb 8.9 L D (13.0-17.5) gm/dL Hct 28.0 L (39.0-53.0) % RDW 16.8 H (11.5-15.5) % Neutrophils # 15.2 H (1.3-7.7) k/uL ABG pH 7.48 H (7.35-7.45) ABG pCO2 30 L (35-45) mmHg ABG pO2 136 H (83-108) mmHg ABG O2 Saturation 98.8 H (94-97) % Chloride 110 H (98-107) mmol/L BUN 21 H (9-20) mg/dL Creatinine 1.45 H (0.66-1.25) mg/dL POC Glucose (mg/dL) (75-99) mg/dL Calcium 7.7 L (8.4-10.2) mg/dL AST 156 H (17-59) U/L ALT 510 H (4-49) U/L Total Protein 5.0 L (6.3-8.2) g/dL Albumin 2.1 L (3.5-5.0) g/dL Crossmatch 05/04/19 Range/Units 11:02 WBC (3.8-10.6) k/uL RBC (4.30-5.90) m/uL Hgb (13.0-17.5) gm/dL Hct (39.0-53.0) % RDW (11.5-15.5) % Neutrophils # (1.3-7.7) k/uL ABG pH (7.35-7.45) ABG pCO2 (35-45) mmHg ABG pO2 (83-108) mmHg ABG O2 Saturation (94-97) % Chloride (98-107) mmol/L BUN (9-20) mg/dL Creatinine (0.66-1.25) mg/dL POC Glucose (mg/dL) 112 H (75-99) mg/dL Calcium (8.4-10.2) mg/dL AST (17-59) U/L ALT (4-49) U/L Total Protein (6.3-8.2) g/dL Albumin (3.5-5.0) g/dL Crossmatch Microbiology - Last 24 Hours (Table) 05/02/19 10:45 Blood Culture - Preliminary Blood No Growth after 48 hours 05/02/19 09:25 Gram Stain - Final Sputum Sputum Culture - Final 04/30/19 15:05 Gram Stain - Preliminary Pleural Fluid Body Fluid Culture - Preliminary 04/30/19 11:32 Blood Culture - Preliminary Blood No Growth after 72 hours 05/01/19 23:10 Urine Culture - Final Urine,Catheterized 04/30/19 20:15 Gram Stain - Final Sputum Sputum Culture - Final Assessment and Plan Assessment: Acute on chronic hypoxic respiratory failure Hypotensive episode with transient visceral hypoperfusion causing elevated liver enzymes, renal function, lactic acidosis and hyperkalemia improved as the blood pressure is stable hyperkalemia, stable Elevated liver enzymes Stable right-sided pleural effusion mild to moderate, status post right-sided thoracentesis A. fib with rapid rapid ventricular response now more of a controlled response with amiodarone Acute exacerbation of diastolic heart failure Right lower lobe pneumonia Pleural effusion likely related to fluid overload and diastolic heart failure with A. fib, with contribution from possible parapneumonic pneumonia, will try a small dose of Lasix Status post splenectomy Sepsis due to pneumonia Plan: We'll hold tube feed Continue full ventilator support, patient will be placed on CPAP and pressure support of 5 and 5 Sedation holiday Off of vasopressors as tolerated Continue gentle hydration Initiate weaning trial Will give 40 of Lasix Monitor renal and liver functions closely Pleural fluid findings reviewed Continue to avoid medicine that could contribute to hypotension and liver injury Keep blood pressure map over 65-75 Antibiotics IV per infectious disease services Cardiology consultation and recommendation results reviewed Further plan of care as per clinical response of the patient Critical care time spent 35 minutes Time with Patient: Greater than 30
[2019-05-04 14:15] LABS: ABG Base Excess -1.8 mmol/L; ABG HCO3 22 mmol/L (21-25); ABG Oxygen Saturation 98.7 % (94-97); ABG PCO2 31 mmHg (35-45); ABG PH 7.46 (7.35-7.45); ABG PO2 129 mmHg (83-108); ABG TCO2 23 mmol/L (19-24)
[2019-05-04 14:17] LABS: Allen Test Performed? no
--- NOTE | 2019-05-04 14:45 | PN ---
PROGRESS NOTE Patient is seen for followup for acute kidney injury. He is currently maintained on the vent. IV fluids are running at 75 mL an hour. Patient has excellent urine output. Renal function is improving with creatinine down to 1.45 now from peak of 2.54. No pressors on board. So far all cultures have been negative. No clear source of sepsis has been identified. PHYSICAL EXAMINATION: Today, patient was sedated on the vent. Blood pressure was 136/100, heart rate 85 per minute, he is afebrile. Examination of the heart S1, S2. Examination of the lungs, bilateral breath sounds are heard. Abdomen is soft, non-tender. Examination of the lower extremities shows no significant edema. DIRECTOR OF ADULT EPILEPSY exam cannot be performed. LABS: Show sodium of 137, potassium 4.2, chloride 110, BUN 21, creatinine 1.45, albumin 2.1. ASSESSMENT: 1. Acute kidney injury, ischemic ATN, significantly improved. 2. Shock with lactic acidosis, most likely source of sepsis is a right lower lobe pneumonia. So far all cultures have been negative. 3. Atrial fibrillation with RVR, now improved. 4. Shocked liver from hypotension, currently improving. 5. Acute hypoxic respiratory failure currently on the vent. PLAN: Continue with IV fluids. Can decrease the fluids to about 70 mL an hour. Continue to avoid nephrotoxic medications. Repeat labs in a.m. MMODL / IJN: [id number] /
--- NOTE | 2019-05-04 15:00 | PN ---
PROGRESS NOTE DATE OF SERVICE: 05/04/2019 REASON FOR FOLLOWUP: Pneumonia. INTERVAL HISTORY: The patient is currently afebrile. The patient is hemodynamically stable, currently off the pressor support. Patient's FiO2 is currently down to 40%. The patient is currently being weaned off sedation with possible weaning trials. He has been tolerating his tube feeds and no diarrhea has been reported. PHYSICAL EXAMINATION: Blood pressure is 151/100 with a pulse of 90, temperature 98. He is 99% on 40% FiO2. General description is an elderly male lying in bed in no distress. RESPIRATORY SYSTEM: Unlabored breathing with decreased breath sounds at the base. No wheeze. HEART: S1, S2. Regular rate and rhythm. ABDOMEN: Soft. No tenderness. LABS: White count is down to 18.1. Creatinine is 1.45. Bronchoscopy culture so far negative. DIAGNOSTIC IMPRESSION AND PLAN: Patient with acute respiratory failure which is likely multifactorial in this patient who did have a possible component of pneumonitis, though overall more of a fluid overload status. The patient seems to have shown some clinical improvement. He will continue Zosyn and Zyvox at this point while waiting for his condition to stabilize. Continue with supportive care. MMODL / IJN: [id number] /
[2019-05-04] MEDS ORDERED: LABETALOL 5 MG/ML VIAL MDV IVP PRN (15:04)
[2019-05-04] MEDS: HYDROmorphone 0.5 MG/0.5 ML SYRINGE IVP PRN ×2 (15:54→21:44)
[2019-05-04] MEDS ORDERED: METOPROLOL TARTRATE 50 MG TAB PO SCH (16:00)
[2019-05-04 18:28] LABS: Glucose,Whole Blood 120 mg/dL (75-99)
[2019-05-04] MEDS: QUEtiapine 100 MG TAB PO SCH (20:26)
[2019-05-04] MEDS: PRAVASTATIN SODIUM 20 MG TAB PO SCH (20:26)
[2019-05-04] MEDS ORDERED: AMIODARONE 360 MG in DEXTROSE 5% IN WATER 200 ML IV ONE ×2 (20:45)
[2019-05-04] MEDS ORDERED: AMIODARONE 300 MG in DEXTROSE 5% IN WATER 250 ML IV SCH ×2 (20:45)
[2019-05-04] MEDS: methylPREDNISolone SOD SUCCI 40 MG/ML 1 ML VIAL IV SCH (21:25)
[2019-05-04 23:57] LABS: Glucose,Whole Blood 130 mg/dL (75-99)
[2019-05-05] MEDS: PIPERACILLIN-TAZOBACTAM 3.375 GM in SODIUM CHLORIDE 0.9% 100 ML IVPB SCH ×3 (00:59→16:09)
[2019-05-05] MEDS: NYSTATIN 100,000 UNIT/ML SUSP 500,000 UNIT/5 ML CUP PO SCH ×5 (01:00→21:04)
[2019-05-05] MEDS: INSULIN ASPART (NovoLOG) 100 UNIT/ML VIAL SQ SCH ×5 (01:00→20:46)
[2019-05-05] MEDS: AMIODARONE 300 MG in DEXTROSE 5% IN WATER 250 ML IV SCH ×4 (03:00→16:08)
[2019-05-05 05:23] LABS: Glucose,Whole Blood 124 mg/dL (75-99)
[2019-05-05] MEDS: HYDROmorphone 0.5 MG/0.5 ML SYRINGE IVP PRN ×3 (05:32→16:09)
[2019-05-05 05:43] LABS: Anisocytosis Slight; Basophils % (A) 0 %; Eosinophils % (A) 0 %; HCT 31.7 % (39.0-53.0); HGB 9.9 gm/dL (13.0-17.5); Hypochromasia Moderate; Lymphocytes # (A) 0.7 k/uL (1.0-4.8); Lymphocytes % (A) 4 %; MCH 28.7 pg (25.0-35.0); MCHC 31.3 g/dL (31.0-37.0); MCV 91.9 fL (80.0-100.0); Mean Platelet Volume 8.7; Monocytes # (A) 0.4 k/uL (0-1.0); Monocytes % (A) 2 %; Neutrophils # (A) 17.4 k/uL (1.3-7.7); Neutrophils % (A) 94 %; Platelet Count 420 k/uL (150-450); Poikilocytosis Slight; RBC 3.45 m/uL (4.30-5.90); RDW 16.7 % (11.5-15.5); WBC 18.6 k/uL (3.8-10.6)
[2019-05-05 05:51] LABS: Albumin 2.5 g/dL (3.5-5.0); Calcium 8.1 mg/dL (8.4-10.2); Potassium 4.7 mmol/L (3.5-5.1); Total Bilirubin 0.6 mg/dL (0.2-1.3); Total Protein 5.6 g/dL (6.3-8.2)
--- NOTE | 2019-05-05 06:58 | XR ---
EXAMINATION TYPE: XR chest 1V DATE OF EXAM: 05/05/2019 HISTORY: pneumonia/chf. REFERENCE: Previous study dated 05/04/2019. FINDINGS: The patient has been extubated. The NG tube has been removed. There is a right basilic PICC line in place. Its tip was the cavoatrial junction. There are bilateral effusions, greater on the right the left. There is bibasilar airspace disease. Th e heart is mildly enlarged. IMPRESSION: NO SIGNIFICANT INTERVAL CHANGE IN APPEARANCE OF CHEST.
[2019-05-05] MEDS: SODIUM CHLORIDE 0.9% 1,000 ML IV SCH ×2 (08:02→10:49)
[2019-05-05] MEDS: methylPREDNISolone SOD SUCCI 40 MG/ML 1 ML VIAL IV SCH ×2 (08:03→21:04)
[2019-05-05] MEDS: NOREPINEPHRINE 4 MG in SODIUM CHLORIDE 0.9% 250 ML IV SCH ×2 (08:03→20:48)
[2019-05-05] MEDS: LINEZOLID 600 MG in DEXTROSE/WATER 1 300ML.BAG IVPB SCH ×2 (08:04→21:04)
[2019-05-05] MEDS: PANTOPRAZOLE 40 MG/10 ML VIAL IVP SCH (08:04)
[2019-05-05] MEDS: FERROUS SULFATE 325 MG TAB PO SCH ×2 (08:04→21:04)
[2019-05-05] MEDS: MULTIVITAMINS, THERA 1 EACH TAB PO SCH (08:04)
[2019-05-05] MEDS: FUROSEMIDE 10 MG/ML 4 ML VIAL IV SCH (10:49)
[2019-05-05 11:48] LABS: Glucose,Whole Blood 186 mg/dL (75-99)
--- NOTE | 2019-05-05 11:51 | P.PN ---
Subjective Progress Note Date: 05/05/19 Follow-up for acute kidney injury. Creatinine currently at baseline. 6 L of urine output in the last 24 hours. No nausea vomiting diarrhea. A. fib on amiodarone. Objective - Vital Signs Vital signs: Vital Signs Temp 97.5 F L 05/05/19 08:00 Pulse 108 H 05/05/19 11:00 Resp 13 05/05/19 11:00 BP 140/97 05/05/19 11:00 Pulse Ox 99 05/05/19 11:00 Intake & Output 05/04/19 05/05/19 05/05/19 18:59 06:59 18:59 Intake Total 8898.355 3649 388 Output Total 4250 1860 845 Balance -2705.347 -792 -457 Weight 85.3 kg 96.4 kg Intake: IV 1169 1068 388 Linezolid 600 mg In 300 Dextrose/Water 1 300ml. bag @ 150 mls/hr IVPB Q12HR [facility] Rx#:[id number] Piperacillin-Tazobactam 3 125 .375 gm In Sodium Chloride 0.9% 100 ml @ 25 mls/hr IVPB Q8HR [facility] Rx# :[id number] Pressure bag 39 33 18 Sodium Chloride 0.9% 1, 1130 610 370 000 ml @ 70 mls/hr IV . [id number] [facility] Rx#:[id number] Intake, IV Titration 136.653 Amount Propofol 1,000 mg In 136.653 Empty Bag 1 bag @ Titrate IV .Q0M [facility] Rx#: [id number] Tube Feeding 209 Other 30 Output: Urine 4250 1860 845 Other: Voiding Method Indwelling Catheter Indwelling Catheter Indwelling Catheter ABP, PAP, CO, CI - Last Documented Arterial Blood Pressure 134/77 - Exam No acute distress S1-S2 heard Decreased breath sounds Abdomen soft Edema - Labs CBC & Chem 7: 05/05/19 05:20 05/05/19 05:20 Labs: Abnormal Lab Results - Last 24 Hours (Table) 05/04/19 05/04/19 05/04/19 Range/Units 14:13 18:26 23:56 WBC (3.8-10.6) k/uL RBC (4.30-5.90) m/uL Hgb (13.0-17.5) gm/dL Hct (39.0-53.0) % RDW (11.5-15.5) % Neutrophils # (1.3-7.7) k/uL Lymphocytes # (1.0-4.8) k/uL ABG pH 7.46 H (7.35-7.45) ABG pCO2 31 L (35-45) mmHg ABG pO2 129 H (83-108) mmHg ABG O2 Saturation 98.7 H (94-97) % Sodium (137-145) mmol/L Creatinine (0.66-1.25) mg/dL Glucose (74-99) mg/dL POC Glucose (mg/dL) 120 H 130 H (75-99) mg/dL Calcium (8.4-10.2) mg/dL AST (17-59) U/L ALT (4-49) U/L Total Protein (6.3-8.2) g/dL Albumin (3.5-5.0) g/dL 05/05/19 05/05/19 05/05/19 Range/Units 05:20 05:20 05:22 WBC 18.6 H (3.8-10.6) k/uL RBC 3.45 L (4.30-5.90) m/uL Hgb 9.9 L (13.0-17.5) gm/dL Hct 31.7 L (39.0-53.0) % RDW 16.7 H (11.5-15.5) % Neutrophils # 17.4 H (1.3-7.7) k/uL Lymphocytes # 0.7 L (1.0-4.8) k/uL ABG pH (7.35-7.45) ABG pCO2 (35-45) mmHg ABG pO2 (83-108) mmHg ABG O2 Saturation (94-97) % Sodium 135 L (137-145) mmol/L Creatinine 1.36 H (0.66-1.25) mg/dL Glucose 124 H (74-99) mg/dL POC Glucose (mg/dL) 124 H (75-99) mg/dL Calcium 8.1 L (8.4-10.2) mg/dL AST 76 H (17-59) U/L ALT 368 H (4-49) U/L Total Protein 5.6 L (6.3-8.2) g/dL Albumin 2.5 L (3.5-5.0) g/dL Microbiology - Last 24 Hours (Table) 04/30/19 15:05 Anaerobic Culture - Final Pleural Fluid 04/30/19 15:05 Gram Stain - Final Pleural Fluid Body Fluid Culture - Final 04/30/19 11:32 Blood Culture - Preliminary Blood No Growth after 96 hours 05/02/19 10:45 Blood Culture - Preliminary Blood No Growth after 48 hours 05/02/19 09:25 Gram Stain - Final Sputum Sputum Culture - Final Assessment and Plan Assessment: #1 nonoliguric acute kidney injury secondary to ischemic ATN. Creatinine currently at baseline. #2 chronic kidney disease stage III with a baseline creatinine of 1.3 MG per DL. #3 A. fib with RVR #4 edema #5 shock improving #6 acute respiratory failure status post extubation Plan: #1 creatinine currently at baseline. Stop IV fluids. #2 continue with Lasix #3 avoid nephrotoxic agents and hypotensive episodes.
--- NOTE | 2019-05-05 15:25 | P.PN ---
Subjective Progress Note Date: 05/04/19 Principal diagnosis: Elevated liver enzymes Patient seen lying in bed, recently extubated. No acute complaints. Objective - Vital Signs Vital signs: Vital Signs Temp 97.5 F L 05/04/19 08:00 Pulse 90 05/04/19 11:00 Resp 20 05/04/19 11:00 BP 151/110 05/04/19 11:00 Pulse Ox 99 05/04/19 11:00 Intake & Output 05/03/19 05/04/19 05/04/19 18:59 06:59 18:59 Intake Total 2127.067 2701.679 960.653 Output Total 1135 1290 400 Balance 628.314 7015.679 560.653 Weight 98.3 kg 85.3 kg 85.3 kg Intake: IV 1686 1936 585 Linezolid 600 mg In 300 300 Dextrose/Water 1 300ml. bag @ 150 mls/hr IVPB Q12HR [facility] Rx#:[id number] Piperacillin-Tazobactam 3 100 100 .375 gm In Sodium Chloride 0.9% 100 ml @ 25 mls/hr IVPB Q8HR [facility] Rx# :[id number] Pressure bag 36 36 15 Sodium Chloride 0.9% 1, 1250 1500 570 000 ml @ 125 mls/hr IV . Q8H [facility] Rx#:[id number] Intake, IV Titration 441.067 145.679 136.653 Amount Amiodarone 300 mg In 38.333 Dextrose 5% in Water 250 ml @ 0.5 MG/MIN 25 mls/hr IV .Q10H [facility] Rx#: [id number] Heparin Sod,Pork in 0.45% 126.638 NaCl 25,000 unit In 0.45 % NaCl 1 250ml.bag @ 10 UNITS/KG/HR 9.19 mls/hr IV .Q24H [facility] Rx#: [id number] Norepinephrine 4 mg In 44.696 Sodium Chloride 0.9% 250 ml @ 0.05 MCG/KG/MIN 17. 507 mls/hr IV .[id number] [facility] Rx#:[id number] Propofol 1,000 mg In 276.096 100.983 136.653 Empty Bag 1 bag @ Titrate IV .Q0M [facility] Rx#: [id number] Tube Feeding 220 209 Blood Product 0 310 Rc As-3 Unit 0 310 [id number] Other 90 30 Output: Urine 1135 1290 400 Other: Voiding Method Indwelling Catheter Indwelling Catheter Indwelling Catheter ABP, PAP, CO, CI - Last Documented Arterial Blood Pressure 104/86 - Exam On physical examination, patient appears comfortable in no apparent distress. HEAD: Normocephalic, atraumatic. EYES: No scleral icterus. No conjunctival injection. MOUTH: No lesions, tongue midline. NECK: Trachea midline, no gross abnormalities. CHEST: Decreased air entry in all lung muniz. HEART: Regular rate and rhythm. ABDOMEN: Soft, nontender. Bowel sounds are positive. No organomegaly. No guarding or rigidity. EXTREMITIES: +1 pedal edema. SKIN: No rashes, no jaundice. NEUROLOGIC: Awake and alert. - Labs CBC & Chem 7: 05/05/19 05:20 05/05/19 05:20 Labs: Abnormal Lab Results - Last 24 Hours (Table) 05/03/19 05/03/19 05/03/19 Range/Units 06:55 17:09 23:45 WBC (3.8-10.6) k/uL RBC (4.30-5.90) m/uL Hgb (13.0-17.5) gm/dL Hct (39.0-53.0) % RDW (11.5-15.5) % Neutrophils # (1.3-7.7) k/uL ABG pH (7.35-7.45) ABG pCO2 (35-45) mmHg ABG pO2 (83-108) mmHg ABG O2 Saturation (94-97) % Chloride (98-107) mmol/L BUN (9-20) mg/dL Creatinine (0.66-1.25) mg/dL POC Glucose (mg/dL) 111 H 101 H (75-99) mg/dL Calcium (8.4-10.2) mg/dL AST (17-59) U/L ALT (4-49) U/L Total Protein (6.3-8.2) g/dL Albumin (3.5-5.0) g/dL Crossmatch See Detail 05/04/19 05/04/19 05/04/19 Range/Units 05:21 05:30 05:30 WBC 18.1 H (3.8-10.6) k/uL RBC 3.09 L (4.30-5.90) m/uL Hgb 8.9 L D (13.0-17.5) gm/dL Hct 28.0 L (39.0-53.0) % RDW 16.8 H (11.5-15.5) % Neutrophils # 15.2 H (1.3-7.7) k/uL ABG pH 7.48 H (7.35-7.45) ABG pCO2 30 L (35-45) mmHg ABG pO2 136 H (83-108) mmHg ABG O2 Saturation 98.8 H (94-97) % Chloride 110 H (98-107) mmol/L BUN 21 H (9-20) mg/dL Creatinine 1.45 H (0.66-1.25) mg/dL POC Glucose (mg/dL) (75-99) mg/dL Calcium 7.7 L (8.4-10.2) mg/dL AST 156 H (17-59) U/L ALT 510 H (4-49) U/L Total Protein 5.0 L (6.3-8.2) g/dL Albumin 2.1 L (3.5-5.0) g/dL Crossmatch 05/04/19 05/04/19 Range/Units 11:02 14:13 WBC (3.8-10.6) k/uL RBC (4.30-5.90) m/uL Hgb (13.0-17.5) gm/dL Hct (39.0-53.0) % RDW (11.5-15.5) % Neutrophils # (1.3-7.7) k/uL ABG pH 7.46 H (7.35-7.45) ABG pCO2 31 L (35-45) mmHg ABG pO2 129 H (83-108) mmHg ABG O2 Saturation 98.7 H (94-97) % Chloride (98-107) mmol/L BUN (9-20) mg/dL Creatinine (0.66-1.25) mg/dL POC Glucose (mg/dL) 112 H (75-99) mg/dL Calcium (8.4-10.2) mg/dL AST (17-59) U/L ALT (4-49) U/L Total Protein (6.3-8.2) g/dL Albumin (3.5-5.0) g/dL Crossmatch Microbiology - Last 24 Hours (Table) 04/30/19 11:32 Blood Culture - Preliminary Blood No Growth after 96 hours 05/02/19 10:45 Blood Culture - Preliminary Blood No Growth after 48 hours 05/02/19 09:25 Gram Stain - Final Sputum Sputum Culture - Final 04/30/19 15:05 Gram Stain - Preliminary Pleural Fluid Body Fluid Culture - Preliminary 05/01/19 23:10 Urine Culture - Final Urine,Catheterized 04/30/19 20:15 Gram Stain - Final Sputum Sputum Culture - Final Assessment and Plan (1) Elevated liver enzymes Narrative/Plan: 68-year-old currently receiving treatment for her atrial fibrillation and suspected pneumonia was found to have elevation in liver enzymes and predominantly hepatocellular pattern. Liver enzymes initially normal on presentation subsequently patient was found to have elevation in AST and ALT. No prior history of elevated liver enzymes. The patient has had exposures to antibiotics known to cause elevated liver enzymes, with antibiotic regimen currently modified. Ultrasound of the abdomen also showed some gallbladder wall thickening and cholelithiasis with patient currently receiving antibiotic c overage for gram-negative and anaerobic bacteria. No reports of abdominal pain or dilated bile ducts to suggest biliary pathology. Suspicion is for medication related effect or hypoperfusion in the setting of chronic liver disease, with full serology ordered to rule out underlying intrinsic liver disease negative to date, with mildly elevated antimitochondrial antibody no consistent with predomi nantly hepatocellular elevation in liver enzymes. Current Visit: Yes Status: Acute Code(s): R74.8 - ABNORMAL LEVELS OF OTHER SERUM ENZYMES SNOMED Code(s): 429823194 (2) Normocytic normochromic anemia Narrative/Plan: Normocytic normochromic anemia with normal iron saturation and slightly depressed total iron level and normal nutritional studies. Likely related to chronic disease. Hemoglobin has remained stable overall during hospitalization, slight fall today and patient is status post transfusion.. Current Visit: Yes Status: Acute Code(s): D64.9 - ANEMIA, UNSPECIFIED SNOMED Code(s): 02710765 Plan: Supportive care Okay for diet as tolerated Continue to monitor CBC, CMP Computed tomography scan abdomen and ultrasound abdomen reviewed Continue to trend liver enzymes Full liver serologies ordered, and negative to date except for mildly elevated antimitochondrial antibody which is not consistent with patient's dominantly hepatocellular elevation of liver Enzymes Continue broad-spectrum antibiotic therapy No plans for endoscopic evaluation at this time Continue treatment of atrial fibrillation and pneumonia per the consulting services and primary team Thank you for allowing us to participate in the care of the patient, the GI service will stand by please call us back with any questions or concerns
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
--- NOTE | 2019-05-05 16:58 | PN ---
PROGRESS NOTE DATE OF SERVICE: 05/05/2019 REASON FOR FOLLOWUP: Pneumonia. INTERVAL HISTORY: The patient is currently afebrile, has been breathing comfortably. The patient has been extubated. Denies any chest pain. He did have some cough, but not bringing up any sputum. No vomiting or any diarrhea. PHYSICAL EXAMINATION: Blood pressure 140/96, pulse of 112, temperature 97.7. He is 99% on 3 L nasal cannula. General description is an elderly male lying in bed in no distress. RESPIRATORY SYSTEM: Unlabored breathing. Decreased breath sounds at the bases. No wheeze. HEART: S1, S2. Regular rate and rhythm. ABDOMEN: Soft, no tenderness. LABS: Hemoglobin 9.9, white count 18.6, BUN of 18, creatinine 1.36. Blood and sputum cultures have been negative. DIAGNOSTIC IMPRESSION AND PLAN: Patient with acute respiratory failure which is likely multifactorial in this patient who did have possible pneumonia. Sputum has been negative so far for pathogen. Will keep the patient on Zosyn and discontinue Zyvox and monitor clinical course closely. MMODL / IJN: [id number] /
[2019-05-05 17:02] LABS: Glucose,Whole Blood 163 mg/dL (75-99)
[2019-05-05] MEDS: METOPROLOL TARTRATE 50 MG TAB PO SCH (17:08)
[2019-05-05] MEDS: APIXABAN 2.5 MG TABLET PO SCH (17:08)
[2019-05-05 20:35] LABS: Glucose,Whole Blood 127 mg/dL (75-99)
[2019-05-05] MEDS: AMIODARONE 200 MG TAB PO SCH (21:04)
[2019-05-05] MEDS: PRAVASTATIN SODIUM 20 MG TAB PO SCH (21:04)
[2019-05-05] MEDS: QUEtiapine 100 MG TAB PO SCH (21:04)
[2019-05-06] MEDS: PIPERACILLIN-TAZOBACTAM 3.375 GM in SODIUM CHLORIDE 0.9% 100 ML IVPB SCH ×3 (00:48→17:07)
[2019-05-06 05:47] LABS: Anisocytosis Slight; Basophils % (A) 0 %; Eosinophils # (A) 0.3 k/uL (0-0.7); Eosinophils % (A) 1 %; HCT 31.8 % (39.0-53.0); HGB 9.8 gm/dL (13.0-17.5); Hypochromasia Slight; Lymphocytes # (A) 0.9 k/uL (1.0-4.8); Lymphocytes % (A) 3 %; MCH 28.6 pg (25.0-35.0); MCHC 30.9 g/dL (31.0-37.0); MCV 92.3 fL (80.0-100.0); Mean Platelet Volume 8.4; Monocytes # (A) 0.8 k/uL (0-1.0); Monocytes % (A) 3 %; Neutrophils # (A) 25.3 k/uL (1.3-7.7); Platelet Count 389 k/uL (150-450); RBC 3.45 m/uL (4.30-5.90); RDW 16.9 % (11.5-15.5); WBC 27.3 k/uL (3.8-10.6)
[2019-05-06 05:49] LABS: Neutrophils % (A) 93 %
[2019-05-06 05:58] LABS: Albumin 2.3 g/dL (3.5-5.0); Potassium 4.7 mmol/L (3.5-5.1); Total Bilirubin 0.5 mg/dL (0.2-1.3); Total Protein 5.3 g/dL (6.3-8.2)
--- NOTE | 2019-05-06 06:18 | XR ---
EXAMINATION TYPE: XR chest 1V portable DATE OF EXAM: 05/06/2019 HISTORY: Tube placement. REFERENCE: Previous study dated 05/05/2019. FINDINGS: There is worsening opacity right hemithorax likely due to layering fluid. There is a left-s ided effusion which is smaller. Heart size upper limits of normal. IMPRESSION: 1. BILATERAL EFFUSIONS. 2. BORDERLINE CARDIOMEGALY. 3. BIBASILAR AIRSPACE DISEASE.
[2019-05-06 06:49] LABS: Glucose,Whole Blood 140 mg/dL (75-99)
[2019-05-06] MEDS: INSULIN ASPART (NovoLOG) 100 UNIT/ML VIAL SQ SCH ×4 (06:58→21:22)
[2019-05-06] MEDS: LINEZOLID 600 MG in DEXTROSE/WATER 1 300ML.BAG IVPB SCH (07:54)
[2019-05-06] MEDS: PANTOPRAZOLE 40 MG/10 ML VIAL IVP SCH (07:58)
[2019-05-06] MEDS: FUROSEMIDE 10 MG/ML 4 ML VIAL IV SCH ×2 (07:58→21:20)
[2019-05-06] MEDS: methylPREDNISolone SOD SUCCI 40 MG/ML 1 ML VIAL IV SCH ×2 (07:58→21:21)
[2019-05-06] MEDS: METOPROLOL TARTRATE 50 MG TAB PO SCH ×2 (07:59→21:19)
[2019-05-06] MEDS: MULTIVITAMINS, THERA 1 EACH TAB PO SCH (07:59)
[2019-05-06] MEDS: HYDROmorphone 0.5 MG/0.5 ML SYRINGE IVP PRN ×4 (07:59→21:21)
[2019-05-06] MEDS: NYSTATIN 100,000 UNIT/ML SUSP 500,000 UNIT/5 ML CUP PO SCH ×4 (07:59→21:20)
[2019-05-06] MEDS: FERROUS SULFATE 325 MG TAB PO SCH ×2 (07:59→21:19)
[2019-05-06] MEDS: APIXABAN 2.5 MG TABLET PO SCH ×2 (07:59→21:20)
[2019-05-06] MEDS: AMIODARONE 200 MG TAB PO SCH ×2 (07:59→21:19)
[2019-05-06] MEDS: NOREPINEPHRINE 4 MG in SODIUM CHLORIDE 0.9% 250 ML IV SCH (09:45)
[2019-05-06 11:39] LABS: Glucose,Whole Blood 181 mg/dL (75-99)
[2019-05-06] MEDS: SODIUM CHLORIDE 0.9% 1,000 ML IV SCH (11:46)
--- NOTE | 2019-05-06 12:13 | P.PN ---
Subjective Progress Note Date: 05/06/19 Follow-up for acute kidney injury. Creatinine currently at baseline. 3 L of urine output in the last 24 hours. No nausea vomiting diarrhea. A. fib on amiodarone. Objective - Vital Signs Vital signs: Vital Signs Temp 97.6 F 05/06/19 08:00 Pulse 105 H 05/06/19 11:00 Resp 12 05/06/19 11:00 BP 117/78 05/06/19 11:00 Pulse Ox 97 05/06/19 11:00 Intake & Output 05/05/19 05/06/19 05/06/19 18:59 06:59 18:59 Intake Total 776 790 650 Output Total 2545 460 1380 Balance -1769 330 -730 Weight 96.1 kg Intake: IV 526 550 440 Linezolid 600 mg In 300 300 Dextrose/Water 1 300ml. bag @ 150 mls/hr IVPB Q12HR [facility] Rx#:[id number] Piperacillin-Tazobactam 3 100 100 .375 gm In Sodium Chloride 0.9% 100 ml @ 25 mls/hr IVPB Q8HR [facility] Rx# :[id number] Pressure bag 36 30 Sodium Chloride 0.9% 1, 490 120 40 000 ml @ 10 mls/hr IV . Q24H [facility] Rx#:[id number] Intake, IV Titration 250 Amount Amiodarone 300 mg In 250 Dextrose 5% in Water 250 ml @ 0.5 MG/MIN 25 mls/hr IV .Q10H [facility] Rx#: [id number] Oral 240 210 Output: Urine 2545 460 1380 Other: Voiding Method Indwelling Catheter Indwelling Catheter Indwelling Catheter # Voids 30 30 ABP, PAP, CO, CI - Last Documented Arterial Blood Pressure 127/76 - Exam No acute distress S1-S2 heard Decreased breath sounds Abdomen soft Edema - Labs CBC & Chem 7: 05/06/19 05:25 05/06/19 05:25 Labs: Abnormal Lab Results - Last 24 Hours (Table) 05/05/19 05/05/19 05/06/19 Range/Units 17:01 20:32 05:25 WBC 27.3 H (3.8-10.6) k/uL RBC 3.45 L (4.30-5.90) m/uL Hgb 9.8 L (13.0-17.5) gm/dL Hct 31.8 L (39.0-53.0) % MCHC 30.9 L (31.0-37.0) g/dL RDW 16.9 H (11.5-15.5) % Neutrophils # 25.3 H (1.3-7.7) k/uL Lymphocytes # 0.9 L (1.0-4.8) k/uL Sodium (137-145) mmol/L BUN (9-20) mg/dL Creatinine (0.66-1.25) mg/dL Glucose (74-99) mg/dL POC Glucose (mg/dL) 163 H 127 H (75-99) mg/dL Calcium (8.4-10.2) mg/dL ALT (4-49) U/L Total Protein (6.3-8.2) g/dL Albumin (3.5-5.0) g/dL 05/06/19 05/06/19 05/06/19 Range/Units 05:25 06:48 11:38 WBC (3.8-10.6) k/uL RBC (4.30-5.90) m/uL Hgb (13.0-17.5) gm/dL Hct (39.0-53.0) % MCHC (31.0-37.0) g/dL RDW (11.5-15.5) % Neutrophils # (1.3-7.7) k/uL Lymphocytes # (1.0-4.8) k/uL Sodium 135 L (137-145) mmol/L BUN 23 H (9-20) mg/dL Creatinine 1.31 H (0.66-1.25) mg/dL Glucose 123 H (74-99) mg/dL POC Glucose (mg/dL) 140 H 181 H (75-99) mg/dL Calcium 8.0 L (8.4-10.2) mg/dL ALT 239 H (4-49) U/L Total Protein 5.3 L (6.3-8.2) g/dL Albumin 2.3 L (3.5-5.0) g/dL Microbiology - Last 24 Hours (Table) 04/30/19 11:32 Blood Culture - Preliminary Blood No Growth after 120 hours 05/02/19 10:45 Blood Culture - Preliminary Blood No Growth after 72 hours Assessment and Plan Assessment: #1 nonoliguric acute kidney injury secondary to ischemic ATN. Creatinine currently at baseline. #2 chronic kidney disease stage III with a baseline creatinine of 1.3 MG per DL. #3 A. fib with RVR #4 edema #5 shock improving #6 acute respiratory failure status post extubation Plan: #1 creatinine currently at baseline. #2 continue with Lasix, increase to twice a day #3 avoid nephrotoxic agents and hypotensive episodes.
--- NOTE | 2019-05-06 14:20 | P.PN ---
Subjective Progress Note Date: 05/05/19 Principal diagnosis: Delirium Hypotensive episode Intravascular volume depletion and dehydration Pleural effusion A. 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, patient seen eval examined during the rounds labs reviewed medications reviewed patient has been successfully extubated, opens eyes was very weak and lethargic, will do the PT OT evaluation increase activity as tolerated, labs reviewed medications reviewed, renal services following, chest x-ray today reviewed stable no significant change continued to have a small bilateral pleural effusion more so on the right side compared to left side, we'll start diuresis, culture results and report are reviewed no positive cultures have been seen, 05/04/2019, patient seen and evaluated examined during the rounds labs reviewed medications reviewed radiographic studies reviewed as well discussed at length with the family present at bedside, patient has been off of propofol, off of levo fed as well he is in A. fib with controlled ventricular rate into 80s blood pressure is stable, in 9 is present but standpoint, minimal respiratory secretions are present, mental status is stable, patient is tolerating tube feed well, labs reviewed liver functions continued to improve so as the renal functions as well, patient is getting amiodarone by mouth high dose through the NG tube liver functions remains as stable in fact improving, plan is to put patient on CPAP pressure support and observe closely, white cell count is down to 18,000 from 21,000 hemoglobin is up and stable 8.9 after the transfusion, cultures are so far has been negative, patient is on IV Zosyn 05/03/2019, patient seen eval examined during the rounds, patient remains on full ventilator support also on review fed and propofol, hemoglobin drop down to 6.9 patient is being transfused with 1 unit of packed RBC, posttransfusion sedation holiday will be attempted, currently patient is on assist control of 20 tidal volume 500 rate of 20, PEEP of 5, 40% oxygen, he had adequate urine output labs reviewed renal functions are improving, potassium is normalized, the liver functions are improving as well ALT however remains high, patient likely has a poor perfusion during episodes of A. fib with RVR and hypotension, patient remains on levo fed drip, bicarb drip has been discontinued, heparin has been stopped due to drop in hemoglobin, 05/01/2019, patient seen eval examined during the rounds labs reviewed medications reviewed liver functions have been stabilized protection was slightly elevated, patient was fairly stable except for tachycardia which is A. fib with RVR this morning patient placed back on now for optimal along with the beta bernadette with that blood pressure significantly dropped down with that patient becomes confused and agitated the symptoms are consistent with drop in blood pressure along with development of acidosis and developing hyperkalemia patient did require Kayexalate extra dose patient has been resuscitated with fluid arterial blood gases done which revealed respiratory alkalosis along with some metabolic acidosis, would DC where optimal) meters for beta blockers continue to gently hydrate patient chest x-ray reviewed overall stable, it appears that confusion appears with episodes of hypertension which causes global ischemia and rising lactic acidosis renal functions liver functions, white cell count has been coming down we'll continue to monitor patient off of Lasix, Ativan 1 mg have been given for backside T and a prehension will observe closely in ICU continue high flow oxygen 04/30/2019, patient seen eval reexamined during the rounds labs reviewed medications reviewed computed tomography scan of the chest as well as abdomen and the ultrasound reviewed as well, ultrasound is not showing a very large pleural effusion however fluid is present no stare leave the last interventional radiology to do the right-sided thoracentesis, overall patient decompensate and transferred from the floor to ICU it appears that patient has a hypotensive episodes and the laboratory data indicated that as lactic acid went up rotation went up urine functions progressed as well as liver enzymes shot up as well suggestive of possible ongoing for transient visceral ischemia, will DC the Lasix DC where optimal along with Tylenol Atarax continue gently rehydrate the patient heparin drip has been started, will stop it before thoracentesis as per recommendation of INR, continue broad-spectrum antibiotics continue high flow oxygen, regular care time 35 minutes 04/29/2019, patient seen eval examined during the rounds labs reviewed medications reviewed, remains afebrile with controlled ventricular response patient has been on room air but somewhat short of breath though chest x-ray and computed tomography scan have been reviewed there is moderate pleural effusion the right side has been noted, patient is on anticoagulation I have discussed with RN will stop the anticoagulation today and tomorrow and patient will be scheduled for right-sided thoracentesis, I have ordered ultrasound of the chest as well to look into depth and amount of fluid, blood and urine cultures have been positive for E. coli, repeat blood cultures on have been negative, white cell continued to go down slowly 04/27/2019, patient seen eval examined during the rounds chest x-ray from today reviewed slight worsening of pleural effusion has seen, patient has persistent infiltrate in the right lower lobe some reticular density in the left lower lobe is seen as well, patient denies any chest pain intermittent cough is present, white cell count is slowly improving, blood cultures no growth so far, given that patient has a significant history of splenectomy would recommend to continue IV antibiotics, would give a dose of vancomycin as well, observe renal functions closely This is a 68-year-old male who presents emergency Department with a past medical history significant for atrial fibrillation. Patient is on eliquis. Patient is status post splenectomy. Patient states since Tuesday after he coughed he's been having some right-sided chest pain is very sharp in nature. Patient states movement definitely makes it worse and coughing definitely makes it worse per patient denies any shortness of breath or difficulty breathing. Patient denies any fever chills. Patient denies any abdominal pain. Patient has nausea vomiting diarrhea. Patient denies any headache patient denies numbness weakness. Patient has any back pain. Patient denies any lightheadedness or dizziness. His repeat chest x-ray shows right basal infiltrate along with effusion slightly progressive worsening is seen along with nodular density in the left base Ammann we'll repeat another chest x-ray tomorrow Objective - Vital Signs Vital signs: Vital Signs Temp 97.7 F 05/05/19 16:00 Pulse 115 H 05/05/19 16:00 Resp 14 05/05/19 16:00 BP 126/84 05/05/19 15:00 Pulse Ox 93 L 05/05/19 16:49 Intake & Output 05/04/19 05/05/19 05/05/19 18:59 06:59 18:59 Intake Total 8889.990 8918 753 Output Total 0372 0785 6809 Balance -5498.444 -091 -0323 Weight 85.3 kg 96.4 kg Intake: IV 1169 1068 503 Linezolid 600 mg In 300 Dextrose/Water 1 300ml. bag @ 150 mls/hr IVPB Q12HR [facility] Rx#:[id number] Piperacillin-Tazobactam 3 125 .375 gm In Sodium Chloride 0.9% 100 ml @ 25 mls/hr IVPB Q8HR [facility] Rx# :[id number] Pressure bag 39 33 33 Sodium Chloride 0.9% 1, 1130 610 470 000 ml @ 10 mls/hr IV . Q24H [facility] Rx#:[id number] Intake, IV Titration 136.653 250 Amount Amiodarone 300 mg In 250 Dextrose 5% in Water 250 ml @ 0.5 MG/MIN 25 mls/hr IV .Q10H [facility] Rx#: [id number] Propofol 1,000 mg In 136.653 Empty Bag 1 bag @ Titrate IV .Q0M [facility] Rx#: [id number] Tube Feeding 209 Other 30 Output: Urine 4250 1860 2495 Other: Voiding Method Indwelling Catheter Indwelling Catheter Indwelling Catheter ABP, PAP, CO, CI - Last Documented Arterial Blood Pressure 147/83 - Exam - Constitutional General appearance: Present: Intubated off of sedation opens eyes follow simple commands- EENT Eyes: normal appearance Ears: bilateral: normal - Neck Carotids: bilateral: upstroke normal Thyroid: bilateral: normal size - Respiratory Respiratory: bilateral: diminished more so on the right side compared left side - Cardiovascular Rhythm: regular Heart sounds: normal: S1, S2 - Gastrointestinal General gastrointestinal: Present: normal bowel sounds - Neurologic Neurologic: On full ventilator support - Labs CBC & Chem 7: 05/06/19 05:25 05/06/19 05:25 Labs: Abnormal Lab Results - Last 24 Hours (Table) 05/04/19 05/05/19 05/05/19 Range/Units 23:56 05:20 05:20 WBC 18.6 H (3.8-10.6) k/uL RBC 3.45 L (4.30-5.90) m/uL Hgb 9.9 L (13.0-17.5) gm/dL Hct 31.7 L (39.0-53.0) % RDW 16.7 H (11.5-15.5) % Neutrophils # 17.4 H (1.3-7.7) k/uL Lymphocytes # 0.7 L (1.0-4.8) k/uL Sodium 135 L (137-145) mmol/L Creatinine 1.36 H (0.66-1.25) mg/dL Glucose 124 H (74-99) mg/dL POC Glucose (mg/dL) 130 H (75-99) mg/dL Calcium 8.1 L (8.4-10.2) mg/dL AST 76 H (17-59) U/L ALT 368 H (4-49) U/L Total Protein 5.6 L (6.3-8.2) g/dL Albumin 2.5 L (3.5-5.0) g/dL 05/05/19 05/05/19 05/05/19 Range/Units 05:22 11:46 17:01 WBC (3.8-10.6) k/uL RBC (4.30-5.90) m/uL Hgb (13.0-17.5) gm/dL Hct (39.0-53.0) % RDW (11.5-15.5) % Neutrophils # (1.3-7.7) k/uL Lymphocytes # (1.0-4.8) k/uL Sodium (137-145) mmol/L Creatinine (0.66-1.25) mg/dL Glucose (74-99) mg/dL POC Glucose (mg/dL) 124 H 186 H 163 H (75-99) mg/dL Calcium (8.4-10.2) mg/dL AST (17-59) U/L ALT (4-49) U/L Total Protein (6.3-8.2) g/dL Albumin (3.5-5.0) g/dL Microbiology - Last 24 Hours (Table) 04/30/19 11:32 Blood Culture - Preliminary Blood No Growth after 120 hours 05/02/19 10:45 Blood Culture - Preliminary Blood No Growth after 72 hours 04/30/19 15:05 Anaerobic Culture - Final Pleural Fluid 04/30/19 15:05 Gram Stain - Final Pleural Fluid Body Fluid Culture - Final Assessment and Plan Assessment: Acute on chronic hypoxic respiratory failure Hypotensive episode with transient visceral hypoperfusion causing elevated liver enzymes, renal function, lactic acidosis and hyperkalemia improved as the blood pressure is stable hyperkalemia, stable Elevated liver enzymes Stable right-sided pleural effusion mild to moderate, status post right-sided thoracentesis A. fib with rapid rapid ventricular response now more of a controlled response with amiodarone Acute exacerbation of diastolic heart failure Right lower lobe pneumonia Pleural effusion likely related to fluid overload and diastolic heart failure with A. fib, with contribution from possible parapneumonic pneumonia, will try a small dose of Lasix Status post splenectomy Sepsis due to pneumonia Plan: Continue gentle diuresis On supplemental oxygen, green and extubated Monitor renal and liver functions closely Pleural fluid findings reviewed Continue to avoid medicine that could contribute to hypotension and liver injury Keep blood pressure map over 65-75 Antibiotics IV per infectious disease services Cardiology consultation and recommendation results reviewed Further plan of care as per clinical response of the patient Critical care time spent 35 minutes Time with Patient: Greater than 30
--- NOTE | 2019-05-06 14:21 | P.PN ---
Subjective Progress Note Date: 05/06/19 Principal diagnosis: Delirium Hypotensive episode Intravascular volume depletion and dehydration Pleural effusion A. fib with rapid rapid ventricular response Acute exacerbation of diastolic heart failure Right lower lobe pneumonia Status post splenectomy 05/06/2019, patient seen eval examined during the rounds labs reviewed medications reviewed care plan discussed patient is more awake and alert confusion have improved significantly patient makes good eye contact and responding appropriately, x-rays and labs reviewed, care plan discussed with the family present at bedside also the patient and staff, increase activity as tolerated, labs reviewed medications reviewed agree with diuresis as planned Lasix does have been increase 05/05/2019, patient seen eval examined during the rounds labs reviewed medications reviewed patient has been successfully extubated, opens eyes was very weak and lethargic, will do the PT OT evaluation increase activity as tolerated, labs reviewed medications reviewed, renal services following, chest x-ray today reviewed stable no significant change continued to have a small bilateral pleural effusion more so on the right side compared to left side, we'll start diuresis, culture results and report are reviewed no positive cultures have been seen, 05/04/2019, patient seen and evaluated examined during the rounds labs reviewed medications reviewed radiographic studies reviewed as well discussed at length with the family present at bedside, patient has been off of propofol, off of levo fed as well he is in A. fib with controlled ventricular rate into 80s blood pressure is stable, in 9 is present but standpoint, minimal respiratory secretions are present, mental status is stable, patient is tolerating tube feed well, labs reviewed liver functions continued to improve so as the renal functions as well, patient is getting amiodarone by mouth high dose through the NG tube liver functions remains as stable in fact improving, plan is to put patient on CPAP pressure support and observe closely, white cell count is down to 18,000 from 21,000 hemoglobin is up and stable 8.9 after the transfusion, cultures are so far has been negative, patient is on IV Zosyn 05/03/2019, patient seen eval examined during the rounds, patient remains on full ventilator support also on review fed and propofol, hemoglobin drop down to 6.9 patient is being transfused with 1 unit of packed RBC, posttransfusion sedation holiday will be attempted, currently patient is on assist control of 20 tidal volume 500 rate of 20, PEEP of 5, 40% oxygen, he had adequate urine output labs reviewed renal functions are improving, potassium is normalized, the liver functions are improving as well ALT however remains high, patient likely has a poor perfusion during episodes of A. fib with RVR and hypotension, patient remains on levo fed drip, bicarb drip has been discontinued, heparin has been stopped due to drop in hemoglobin, 05/01/2019, patient seen eval examined during the rounds labs reviewed medications reviewed liver functions have been stabilized protection was slightly elevated, patient was fairly stable except for tachycardia which is A. fib with RVR this morning patient placed back on now for optimal along with the beta bernadette with that blood pressure significantly dropped down with that patient becomes confused and agitated the symptoms are consistent with drop in blood pressure along with development of acidosis and developing hyperkalemia patient did require Kayexalate extra dose patient has been resuscitated with fluid arterial blood gases done which revealed respiratory alkalosis along with some metabolic acidosis, would DC where optimal) meters for beta blockers continue to gently hydrate patient chest x-ray reviewed overall stable, it appears that confusion appears with episodes of hypertension which causes global ischemia and rising lactic acidosis renal functions liver functions, white cell count has been coming down we'll continue to monitor patient off of Lasix, Ativan 1 mg have been given for backside T and a prehension will observe closely in ICU continue high flow oxygen 04/30/2019, patient seen eval reexamined during the rounds labs reviewed medications reviewed computed tomography scan of the chest as well as abdomen and the ultrasound reviewed as well, ultrasound is not showing a very large p leural effusion however fluid is present no stare leave the last interventional radiology to do the right-sided thoracentesis, overall patient decompensate and transferred from the floor to ICU it appears that patient has a hypotensive episodes and the laboratory data indicated that as lactic acid went up rotation went up urine functions progressed as well as liver enzymes shot up as well suggestive of possible ongoing for transient visceral ischemia, will DC the Lasix DC where optimal along with Tylenol Atarax continue gently rehydrate the patient heparin drip has been started, will stop it before thoracentesis as per recommendation of INR, continue broad-spectrum antibiotics continue high flow oxygen, regular care time 35 minutes 04/29/2019, patient seen eval examined during the rounds labs reviewed medications reviewed, remains afebrile with controlled ventricular response patient has been on room air but somewhat short of breath though chest x-ray and computed tomography scan have been reviewed there is moderate pleural effusion the right side has been noted, patient is on anticoagulation I have discussed with RN will stop the anticoagulation today and tomorrow and patient will be scheduled for right-sided thoracentesis, I have ordered ultrasound of the chest as well to look into depth and amount of fluid, blood and urine cultures have been positive for E. coli, repeat blood cultures on have been negative, white cell continued to go down slowly 04/27/2019, patient seen eval examined during the rounds chest x-ray from today reviewed slight worsening of pleural effusion has seen, patient has persistent infiltrate in the right lower lobe some reticular density in the left lower lobe is seen as well, patient denies any chest pain intermittent cough is present, wh ite cell count is slowly improving, blood cultures no growth so far, given that patient has a significant history of splenectomy would recommend to continue IV antibiotics, would give a dose of vancomycin as well, observe renal functions closely This is a 68-year-old male who presents emergency Department with a past medical history significant for atrial fibrillation. Patient is on eliquis. Patient is status post splenectomy. Patient states since Tuesday after he coughed he's been having some right-sided chest pain is very sharp in nature. Patient states movement definitely makes it worse and coughing definitely makes it worse per patient denies any shortness of breath or difficulty breathing. Patient denies any fever chills. Patient denies any abdominal pain. Patient has nausea vo miting diarrhea. Patient denies any headache patient denies numbness weakness. Patient has any back pain. Patient denies any lightheadedness or dizziness. His repeat chest x-ray shows right basal infiltrate along with effusion slightly progressive worsening is seen along with nodular density in the left base Ammann we'll repeat another chest x-ray tomorrow Objective - Vital Signs Vital signs: Vital Signs Temp 97.5 F L 05/06/19 12:00 Pulse 108 H 05/06/19 13:00 Resp 18 05/06/19 13:00 BP 135/91 05/06/19 13:00 Pulse Ox 97 05/06/19 13:00 Intake & Output 05/05/19 05/06/19 05/06/19 18:59 06:59 18:59 Intake Total 776 790 670 Output Total 6586 679 1605 Balance -1769 330 -935 Weight 96.1 kg Intake: IV 526 550 460 Linezolid 600 mg In 300 300 Dextrose/Water 1 300ml. bag @ 150 mls/hr IVPB Q12HR [facility] Rx#:[id number] Piperacillin-Tazobactam 3 100 100 .375 gm In Sodium Chloride 0.9% 100 ml @ 25 mls/hr IVPB Q8HR [facility] Rx# :[id number] Pressure bag 36 30 Sodium Chloride 0.9% 1, 490 120 60 000 ml @ 10 mls/hr IV . Q24H [facility] Rx#:[id number] Intake, IV Titration 250 Amount Amiodarone 300 mg In 250 Dextrose 5% in Water 250 ml @ 0.5 MG/MIN 25 mls/hr IV .Q10H [facility] Rx#: [id number] Oral 240 210 Output: Urine 2545 460 1605 Other: Voiding Method Indwelling Catheter Indwelling Catheter Indwelling Catheter # Voids 30 30 ABP, PAP, CO, CI - Last Documented Arterial Blood Pressure 127/76 - Exam - Constitutional General appearance: Present: Intubated off of sedation opens eyes follow simple commands- EENT Eyes: normal appearance Ears: bilateral: normal - Neck Carotids: bilateral: upstroke normal Thyroid: bilateral: normal size - Respiratory Respiratory: bilateral: diminished more so on the right side compared left side - Cardiovascular Rhythm: regular Heart sounds: normal: S1, S2 - Gastrointestinal General gastrointestinal: Present: normal bowel sounds - Neurologic Neurologic: On full ventilator support - Labs CBC & Chem 7: 05/06/19 05:25 05/06/19 05:25 Labs: Abnormal Lab Results - Last 24 Hours (Table) 05/05/19 05/05/19 05/06/19 Range/Units 17:01 20:32 05:25 WBC 27.3 H (3.8-10.6) k/uL RBC 3.45 L (4.30-5.90) m/uL Hgb 9.8 L (13.0-17.5) gm/dL Hct 31.8 L (39.0-53.0) % MCHC 30.9 L (31.0-37.0) g/dL RDW 16.9 H (11.5-15.5) % Neutrophils # 25.3 H (1.3-7.7) k/uL Lymphocytes # 0.9 L (1.0-4.8) k/uL Sodium (137-145) mmol/L BUN (9-20) mg/dL Creatinine (0.66-1.25) mg/dL Glucose (74-99) mg/dL POC Glucose (mg/dL) 163 H 127 H (75-99) mg/dL Calcium (8.4-10.2) mg/dL ALT (4-49) U/L Total Protein (6.3-8.2) g/dL Albumin (3.5-5.0) g/dL 05/06/19 05/06/19 05/06/19 Range/Units 05:25 06:48 11:38 WBC (3.8-10.6) k/uL RBC (4.30-5.90) m/uL Hgb (13.0-17.5) gm/dL Hct (39.0-53.0) % MCHC (31.0-37.0) g/dL RDW (11.5-15.5) % Neutrophils # (1.3-7.7) k/uL Lymphocytes # (1.0-4.8) k/uL Sodium 135 L (137-145) mmol/L BUN 23 H (9-20) mg/dL Creatinine 1.31 H (0.66-1.25) mg/dL Glucose 123 H (74-99) mg/dL POC Glucose (mg/dL) 140 H 181 H (75-99) mg/dL Calcium 8.0 L (8.4-10.2) mg/dL ALT 239 H (4-49) U/L Total Protein 5.3 L (6.3-8.2) g/dL Albumin 2.3 L (3.5-5.0) g/dL Microbiology - Last 24 Hours (Table) 04/30/19 11:32 Blood Culture - Final Blood No Growth after 144 hours 05/02/19 10:45 Blood Culture - Preliminary Blood No Growth after 96 hours Assessment and Plan Assessment: Acute on chronic hypoxic respiratory failure Hypotensive episode with transient visceral hypoperfusion causing elevated liver enzymes, renal function, lactic acidosis and hyperkalemia improved as the blood pressure is stable hyperkalemia, stable Elevated liver enzymes Stable right-sided pleural effusion mild to moderate, status post right-sided thoracentesis A. fib with rapid rapid ventricular response now more of a controlled response with amiodarone Acute exacerbation of diastolic heart failure Right lower lobe pneumonia Pleural effusion likely related to fluid overload and diastolic heart failure with A. fib, with contribution from possible parapneumonic pneumonia, will try a small dose of Lasix Status post splenectomy Sepsis due to pneumonia Plan: Continue gentle diuresis Increase activity as tolerated On supplemental oxygen, Monitor renal and liver functions closely Pleural fluid findings reviewed Continue to avoid medicine that could contribute to hypotension and liver injury Keep blood pressure map over 65-75 Antibiotics IV per infectious disease services Cardiology consultation and recommendation results reviewed Further plan of care as per clinical response of the patient Critical care time spent 35 minutes Time with Patient: Greater than 30
[2019-05-06] MEDS ORDERED: ANIDULAFUNGIN 200 MG in SODIUM CHLORIDE 0.9% 200 ML IVPB ONE (15:00)
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
[2019-05-06 16:48] LABS: Glucose,Whole Blood 168 mg/dL (75-99)
[2019-05-06 17:14] LABS: Glucose,Whole Blood 177 mg/dL (75-99)
--- NOTE | 2019-05-06 18:10 | PN ---
PROGRESS NOTE DATE OF SERVICE: 05/06/2019 REASON FOR FOLLOWUP: Pneumonia. INTERVAL HISTORY: The patient is currently afebrile, has been breathing comfortably. The patient denies having any chest pain or shortness of breath. Occasional cough. No vomiting or diarrhea. PHYSICAL EXAMINATION: Blood pressure is 127/93 with a pulse of 111. Temperature is 97.5. He is 95% on 2 L nasal cannula. General description is an elderly male lying in bed in no distress. Respiratory system: Unlabored breathing, decreased breath sounds in the base, with no wheeze. Heart S1-S2 regular rate and rhythm. ABDOMEN: Soft, no tenderness. LABS: Hemoglobin 9.8, white count 7.3, creatinine 1.31. DIAGNOSTIC IMPRESSION AND PLAN: 1. Patient with acute respiratory failure which is likely multifactorial in this patient admitted to the hospital with pneumonia currently covered with Zosyn to continue. 2. The patient with a rise in white count could be related to steroids, plus/minus oral pharyngeal candidiasis, Candida glabrata. The patient will be started on Eraxis. Since he is on amiodarone, we cannot use Diflucan response and monitor clinical course closely. MMODL / IJN: [id number] /
[2019-05-06 21:04] LABS: Glucose,Whole Blood 142 mg/dL (75-99)
[2019-05-06] MEDS: PRAVASTATIN SODIUM 20 MG TAB PO SCH (21:19)
[2019-05-06] MEDS: QUEtiapine 100 MG TAB PO SCH (21:20)
[2019-05-07] MEDS: SODIUM CHLORIDE 0.9% 1,000 ML IV SCH ×2 (00:11→23:05)
[2019-05-07] MEDS: PIPERACILLIN-TAZOBACTAM 3.375 GM in SODIUM CHLORIDE 0.9% 100 ML IVPB SCH ×4 (00:11→23:06)
[2019-05-07] MEDS: NOREPINEPHRINE 4 MG in SODIUM CHLORIDE 0.9% 250 ML IV SCH ×2 (02:01→12:03)
[2019-05-07] MEDS: HYDROmorphone 0.5 MG/0.5 ML SYRINGE IVP PRN (05:08)
[2019-05-07] MEDS: guaiFENesin 600 MG TABLET.ER PO PRN (06:07)
[2019-05-07 06:13] LABS: Albumin 2.6 g/dL (3.5-5.0); Calcium 8.4 mg/dL (8.4-10.2); Potassium 4.3 mmol/L (3.5-5.1); Total Bilirubin 0.4 mg/dL (0.2-1.3); Total Protein 5.8 g/dL (6.3-8.2)
[2019-05-07 06:27] LABS: Anisocytosis Slight; Basophils % (A) 0 %; Eosinophils % (A) 0 %; HCT 34.9 % (39.0-53.0); HGB 10.5 gm/dL (13.0-17.5); Hypochromasia Marked; Lymphocytes % (A) 3 %; MCH 28.2 pg (25.0-35.0); Mean Platelet Volume 8.9; Monocytes # (A) 0.5 k/uL (0-1.0); Monocytes % (A) 2 %; Neutrophils % (A) 95 %; Platelet Count 412 k/uL (150-450); RBC 3.71 m/uL (4.30-5.90); WBC 28.7 k/uL (3.8-10.6)
[2019-05-07 06:37] LABS: Glucose,Whole Blood 131 mg/dL (75-99)
[2019-05-07 06:38] LABS: Neutrophils # (A) 27.1 k/uL (1.3-7.7)
[2019-05-07 06:57] LABS: Lymphocytes # (M) 0.57 k/uL (1.0-4.8); Monocytes # (M) 0.86 k/uL (0-1.0); Neutrophils # (M) 27.27 k/uL (1.3-7.7); Neutrophils % (M) 95 %; Nucleated Red Blood Cells 0 /100 WBC (0-0); Target Cells Present; Total Cells Counted 100
[2019-05-07] MEDS: INSULIN ASPART (NovoLOG) 100 UNIT/ML VIAL SQ SCH ×4 (07:11→23:04)
--- NOTE | 2019-05-07 07:33 | XR ---
EXAMINATION TYPE: XR chest 1V portable DATE OF EXAM: 05/07/2019 COMPARISON: 05/06/2019 HISTORY: Shortness of breath TECHNIQUE: Single frontal view of the chest is obtained. FINDINGS: There are small bilateral layering pleural effusions and associated bibasilar airspace dis ease, right greater than left. This is similar to the prior exam. Right-sided PICC again terminates i n the cavoatrial junction. Cardiomediastinal silhouette is enlarged. No acute osseous pathology. IMPRESSION: Similar-appearing bibasilar airspace disease and small pleural effusions.
--- NOTE | 2019-05-07 08:31 | P.PN ---
Subjective Patient is seen in follow-up for acute kidney injury on chronic kidney disease. Renal function is slightly worse which is due to diuresis. Denies chest pain or shortness of breath. She was nonoliguric. Currently maintained on IV Lasix 40 mg twice daily. Vital signs are stable. General: The patient appeared well nourished and normally developed. HEENT: Head exam is unremarkable. Neck is without jugular venous distension. LUNGS: Lungs are clear to auscultation and percussion. Breath sounds decreased. HEART: Rate and Rhythm are regular. First and second heart sounds normal. No murmurs, rubs or gallops. ABDOMEN: Abdominal exam reveals normal bowel sounds. Non-tender and non- distended. EXTREMITITES: Trace edema. Objective - Vital Signs Vital signs: Vital Signs Temp 97.8 F 05/07/19 04:00 Pulse 108 H 05/07/19 07:00 Resp 19 05/07/19 07:00 BP 151/110 05/07/19 07:00 Pulse Ox 92 L 05/07/19 07:00 Intake & Output 05/06/19 05/07/19 05/07/19 18:59 06:59 18:59 Intake Total 1180 210 10 Output Total 1845 1980 50 Balance -665 -1770 -40 Weight 90.4 kg Intake: IV 620 210 10 Linezolid 600 mg In 300 Dextrose/Water 1 300ml. bag @ 150 mls/hr IVPB Q12HR [facility] Rx#:[id number] Piperacillin-Tazobactam 3 200 100 .375 gm In Sodium Chloride 0.9% 100 ml @ 25 mls/hr IVPB Q8HR [facility] Rx# :[id number] Sodium Chloride 0.9% 1, 120 110 10 000 ml @ 10 mls/hr IV . Q24H [facility] Rx#:[id number] Intake, IV Titration 260 Amount Anidulafungin 100 mg In 260 Sodium Chloride 0.9% 100 ml @ 84 mls/hr IVPB DAILY [facility] Rx#:[id number] Oral 300 Output: Urine 1845 1980 50 Other: Voiding Method Indwelling Catheter Indwelling Catheter # Voids 30 ABP, PAP, CO, CI - Last Documented Arterial Blood Pressure 127/76 - Labs CBC & Chem 7: 05/07/19 05:04 05/07/19 05:04 Labs: Abnormal Lab Results - Last 24 Hours (Table) 05/06/19 05/06/19 05/06/19 Range/Units 11:38 16:44 17:12 WBC (3.8-10.6) k/uL RBC (4.30-5.90) m/uL Hgb (13.0-17.5) gm/dL Hct (39.0-53.0) % MCHC (31.0-37.0) g/dL RDW (11.5-15.5) % Neutrophils # (1.3-7.7) k/uL Neutrophils # (Manual) (1.3-7.7) k/uL Lymphocytes # (Manual) (1.0-4.8) k/uL Sodium (137-145) mmol/L BUN (9-20) mg/dL Creatinine (0.66-1.25) mg/dL Glucose (74-99) mg/dL POC Glucose (mg/dL) 181 H 168 H 177 H (75-99) mg/dL ALT (4-49) U/L Total Protein (6.3-8.2) g/dL Albumin (3.5-5.0) g/dL 05/06/19 05/07/19 05/07/19 Range/Units 21:02 05:04 05:04 WBC 28.7 H (3.8-10.6) k/uL RBC 3.71 L (4.30-5.90) m/uL Hgb 10.5 L (13.0-17.5) gm/dL Hct 34.9 L (39.0-53.0) % MCHC 30.0 L (31.0-37.0) g/dL RDW 17.0 H (11.5-15.5) % Neutrophils # 27.1 H (1.3-7.7) k/uL Neutrophils # (Manual) 27.27 H (1.3-7.7) k/uL Lymphocytes # (Manual) 0.57 L (1.0-4.8) k/uL Sodium 133 L (137-145) mmol/L BUN 31 H (9-20) mg/dL Creatinine 1.47 H (0.66-1.25) mg/dL Glucose 109 H (74-99) mg/dL POC Glucose (mg/dL) 142 H (75-99) mg/dL ALT 193 H (4-49) U/L Total Protein 5.8 L (6.3-8.2) g/dL Albumin 2.6 L (3.5-5.0) g/dL 05/07/19 Range/Units 06:36 WBC (3.8-10.6) k/uL RBC (4.30-5.90) m/uL Hgb (13.0-17.5) gm/dL Hct (39.0-53.0) % MCHC (31.0-37.0) g/dL RDW (11.5-15.5) % Neutrophils # (1.3-7.7) k/uL Neutrophils # (Manual) (1.3-7.7) k/uL Lymphocytes # (Manual) (1.0-4.8) k/uL Sodium (137-145) mmol/L BUN (9-20) mg/dL Creatinine (0.66-1.25) mg/dL Glucose (74-99) mg/dL POC Glucose (mg/dL) 131 H (75-99) mg/dL ALT (4-49) U/L Total Protein (6.3-8.2) g/dL Albumin (3.5-5.0) g/dL Microbiology - Last 24 Hours (Table) 04/30/19 11:32 Blood Culture - Final Blood No Growth after 144 hours 05/02/19 10:45 Blood Culture - Preliminary Blood No Growth after 96 hours Assessment and Plan Plan: Assessment: 1. Acute kidney injury secondary to ATN secondary to hemodynamic instability as well as component of cardiorenal syndrome. Renal function is slightly worse today which is due to diuresis. Creatinine 1.47 today. 2. Chronic kidney disease stage III with baseline creatinine near 1.3. 3. A. fib with RVR. Now rate controlled. 4. Volume overload. Improving. 5. Acute on chronic diastolic CHF. 6. Pneumonia maintained on antibiotics. Plan: Maintain IV Lasix 40 mg twice daily. Avoid nephrotoxins. Continue to monitor renal function and urine output.
[2019-05-07] MEDS: FERROUS SULFATE 325 MG TAB PO SCH ×2 (09:20→20:58)
[2019-05-07] MEDS: APIXABAN 2.5 MG TABLET PO SCH ×2 (09:20→20:58)
[2019-05-07] MEDS: AMIODARONE 200 MG TAB PO SCH ×2 (09:20→20:58)
[2019-05-07] MEDS: FUROSEMIDE 10 MG/ML 4 ML VIAL IV SCH ×2 (09:21→20:58)
[2019-05-07] MEDS: METOPROLOL TARTRATE 50 MG TAB PO SCH ×2 (09:21→20:58)
[2019-05-07] MEDS: methylPREDNISolone SOD SUCCI 40 MG/ML 1 ML VIAL IV SCH ×2 (09:21→20:58)
[2019-05-07] MEDS: MULTIVITAMINS, THERA 1 EACH TAB PO SCH (09:21)
[2019-05-07] MEDS: PANTOPRAZOLE 40 MG/10 ML VIAL IVP SCH (09:22)
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
[2019-05-07] MEDS: ANIDULAFUNGIN 100 MG in SODIUM CHLORIDE 0.9% 100 ML IVPB SCH (10:57)
[2019-05-07 11:51] VITALS: BMI 31.1
[2019-05-07 11:54] LABS: Glucose,Whole Blood 136 mg/dL (75-99)
[2019-05-07] MEDS: NYSTATIN 100,000 UNIT/ML SUSP 500,000 UNIT/5 ML CUP PO SCH ×4 (12:02→21:01)
[2019-05-07 16:50] LABS: Glucose,Whole Blood 162 mg/dL (75-99)
[2019-05-07 17:03] LABS: Glucose,Whole Blood 163 mg/dL (75-99)
[2019-05-07] MEDS: QUEtiapine 100 MG TAB PO SCH (20:58)
[2019-05-07] MEDS: PRAVASTATIN SODIUM 20 MG TAB PO SCH (20:58)
[2019-05-07 23:01] LABS: Glucose,Whole Blood 129 mg/dL (75-99)
--- NOTE | 2019-05-07 23:15 | PN ---
PROGRESS NOTE DATE OF SERVICE: 05/07/2019 REASON FOR FOLLOWUP: Pneumonia and leukocytosis. INTERVAL HISTORY: The patient is currently afebrile. He is breathing comfortably on room air. Denies any chest pain. Occasional cough. No nausea or vomiting. No abdominal pain. O diarrhea. PHYSICAL EXAMINATION: Blood pressure is 136/93 with a pulse of 109, temperature 98.4. He is 95% on room air. General description is an elderly male lying in bed in no distress. Respiratory system: Unlabored breathing, decreased breath sounds in the bases. No wheeze. Heart S1, S2. Regular rate and rhythm. Abdomen soft, no tenderness. LABS: Hemoglobin is 10.5, white count 8.7, BUN of 31, creatinine 1.47. DIAGNOSTIC IMPRESSION AND PLAN: 1. Patient with acute respiratory failure, likely multifactorial, possible component of pneumonia. Though cultures have been negative for any resistant pathogen. The patient specifically for some bibasilar airspace disease with no resistant organism grown. Antibiotic will be adjusted to a short course of oral Augmentin. 2. The patient with persistent elevated white count more likely steroid effect, as clinically no evidence of any worsening infection. 3. We will monitor closely. MMODL / IJN: [id number] /
[2019-05-08 05:36] LABS: Anisocytosis Slight; HGB 11.1 gm/dL (13.0-17.5); Hypochromasia Slight; MCH 28.3 pg (25.0-35.0); MCHC 30.8 g/dL (31.0-37.0); Mean Platelet Volume 9.2; Platelet Count 417 k/uL (150-450); RBC 3.92 m/uL (4.30-5.90); RDW 17.1 % (11.5-15.5)
[2019-05-08 05:42] LABS: Albumin 3.1 g/dL (3.5-5.0); Calcium 8.4 mg/dL (8.4-10.2); Potassium 4.3 mmol/L (3.5-5.1); Total Bilirubin 0.8 mg/dL (0.2-1.3); Total Protein 6.7 g/dL (6.3-8.2)
[2019-05-08 06:03] LABS: Band Neutrophils % 3 %; Basophils # (M) 0.23 k/uL (0-0.2); Lymphocytes # (M) 1.86 k/uL (1.0-4.8); Monocytes # (M) 0.23 k/uL (0-1.0); Neutrophils % (M) 88 %; Nucleated Red Blood Cells 4 /100 WBC (0-0); Total Cells Counted 200; WBC 23.3 k/uL (3.8-10.6)
[2019-05-08 06:05] LABS: Anisocytosis (M) Present; Basophilic Stippling Present; Poikilocytosis (M) Present; Polychromasia Present; RBC Fragments Present; Target Cells Present
[2019-05-08] MEDS: NOREPINEPHRINE 4 MG in SODIUM CHLORIDE 0.9% 250 ML IV SCH (06:16)
[2019-05-08 06:32] LABS: Glucose,Whole Blood 142 mg/dL (75-99)
[2019-05-08] MEDS: INSULIN ASPART (NovoLOG) 100 UNIT/ML VIAL SQ SCH ×4 (06:46→20:03)
[2019-05-08] MEDS: NYSTATIN 100,000 UNIT/ML SUSP 500,000 UNIT/5 ML CUP PO SCH ×3 (08:28→18:44)
[2019-05-08] MEDS: PIPERACILLIN-TAZOBACTAM 3.375 GM in SODIUM CHLORIDE 0.9% 100 ML IVPB SCH ×2 (08:28→15:00)
[2019-05-08] MEDS: PANTOPRAZOLE 40 MG/10 ML VIAL IVP SCH (08:28)
[2019-05-08] MEDS: APIXABAN 2.5 MG TABLET PO SCH ×2 (08:28→20:02)
[2019-05-08] MEDS: MULTIVITAMINS, THERA 1 EACH TAB PO SCH (08:28)
[2019-05-08] MEDS: AMIODARONE 200 MG TAB PO SCH ×2 (08:28→20:02)
[2019-05-08] MEDS: ANIDULAFUNGIN 100 MG in SODIUM CHLORIDE 0.9% 100 ML IVPB SCH (08:28)
[2019-05-08] MEDS: METOPROLOL TARTRATE 50 MG TAB PO SCH ×2 (08:28→20:02)
[2019-05-08] MEDS: FERROUS SULFATE 325 MG TAB PO SCH ×2 (08:28→20:02)
[2019-05-08] MEDS: methylPREDNISolone SOD SUCCI 40 MG/ML 1 ML VIAL IV SCH ×2 (08:28→20:02)
[2019-05-08] MEDS: FUROSEMIDE 10 MG/ML 4 ML VIAL IV SCH ×2 (08:29→20:02)
--- NOTE | 2019-05-08 11:12 | P.PN ---
Subjective Patient is seen in follow-up for acute kidney injury on chronic kidney disease. Renal function fairly stable. Denies chest pain or shortness of breath. Nonoliguric. Currently maintained on IV Lasix 40 mg twice daily. Vital signs are stable. General: The patient appeared well nourished and normally developed. HEENT: Head exam is unremarkable. Neck is without jugular venous distension. LUNGS: Lungs are clear to auscultation and percussion. Breath sounds decreased. HEART: Rate and Rhythm are regular. First and second heart sounds normal. No murmurs, rubs or gallops. ABDOMEN: Abdominal exam reveals normal bowel sounds. Non-tender and non- distended. EXTREMITITES: Trace edema. Objective - Vital Signs Vital signs: Vital Signs Temp 97.8 F 05/08/19 08:00 Pulse 92 05/08/19 10:00 Resp 12 05/08/19 10:00 BP 130/100 05/08/19 10:00 Pulse Ox 96 05/08/19 10:00 Intake & Output 05/07/19 05/08/19 05/08/19 18:59 06:59 18:59 Intake Total 1030 270 240 Output Total 1750 2090 870 Balance -720 -1820 -630 Weight 90.4 kg 87.8 kg Intake: IV 330 270 240 Anidulafungin 100 mg In 100 100 Sodium Chloride 0.9% 100 ml @ 84 mls/hr IVPB DAILY [facility] Rx#:[id number] Piperacillin-Tazobactam 3 100 100 100 .375 gm In Sodium Chloride 0.9% 100 ml @ 25 mls/hr IVPB Q8HR [facility] Rx# :[id number] Sodium Chloride 0.9% 1, 130 170 40 000 ml @ 10 mls/hr IV . Q24H [facility] Rx#:[id number] Oral 700 Output: Urine 1750 2090 870 Other: Voiding Method Indwelling Catheter Indwelling Catheter Indwelling Catheter # Bowel Movements 1 ABP, PAP, CO, CI - Last Documented Arterial Blood Pressure 127/76 - Labs CBC & Chem 7: 05/08/19 05:16 05/08/19 05:16 Labs: Abnormal Lab Results - Last 24 Hours (Table) 05/07/19 05/07/19 05/07/19 Range/Units 11:52 16:48 17:01 WBC (3.8-10.6) k/uL RBC (4.30-5.90) m/uL Hgb (13.0-17.5) gm/dL Hct (39.0-53.0) % MCHC (31.0-37.0) g/dL RDW (11.5-15.5) % Neutrophils # (Manual) (1.3-7.7) k/uL Basophils # (Manual) (0-0.2) k/uL Nucleated RBCs (0-0) /100 WBC Sodium (137-145) mmol/L Chloride (98-107) mmol/L Carbon Dioxide (22-30) mmol/L BUN (9-20) mg/dL Creatinine (0.66-1.25) mg/dL Glucose (74-99) mg/dL POC Glucose (mg/dL) 136 H 162 H 163 H (75-99) mg/dL AST (17-59) U/L ALT (4-49) U/L Albumin (3.5-5.0) g/dL 05/07/19 05/08/19 05/08/19 Range/Units 23:00 05:16 05:16 WBC 23.3 H (3.8-10.6) k/uL RBC 3.92 L (4.30-5.90) m/uL Hgb 11.1 L (13.0-17.5) gm/dL Hct 36.0 L (39.0-53.0) % MCHC 30.8 L (31.0-37.0) g/dL RDW 17.1 H (11.5-15.5) % Neutrophils # (Manual) 21.20 H (1.3-7.7) k/uL Basophils # (Manual) 0.23 H (0-0.2) k/uL Nucleated RBCs 4 H (0-0) /100 WBC Sodium 133 L (137-145) mmol/L Chloride 94 L (98-107) mmol/L Carbon Dioxide 33 H (22-30) mmol/L BUN 38 H (9-20) mg/dL Creatinine 1.51 H (0.66-1.25) mg/dL Glucose 171 H (74-99) mg/dL POC Glucose (mg/dL) 129 H (75-99) mg/dL AST 72 H (17-59) U/L ALT 178 H (4-49) U/L Albumin 3.1 L (3.5-5.0) g/dL 05/08/19 Range/Units 06:31 WBC (3.8-10.6) k/uL RBC (4.30-5.90) m/uL Hgb (13.0-17.5) gm/dL Hct (39.0-53.0) % MCHC (31.0-37.0) g/dL RDW (11.5-15.5) % Neutrophils # (Manual) (1.3-7.7) k/uL Basophils # (Manual) (0-0.2) k/uL Nucleated RBCs (0-0) /100 WBC Sodium (137-145) mmol/L Chloride (98-107) mmol/L Carbon Dioxide (22-30) mmol/L BUN (9-20) mg/dL Creatinine (0.66-1.25) mg/dL Glucose (74-99) mg/dL POC Glucose (mg/dL) 142 H (75-99) mg/dL AST (17-59) U/L ALT (4-49) U/L Albumin (3.5-5.0) g/dL Microbiology - Last 24 Hours (Table) 04/30/19 15:05 Acid Fast Bacilli Smear - Final Pleural Fluid Acid Fast Bacilli Culture - Preliminary 05/02/19 10:45 Blood Culture - Preliminary Blood No Growth after 120 hours Assessment and Plan Plan: Assessment: 1. Acute kidney injury secondary to ATN secondary to hemodynamic instability as well as component of cardiorenal syndrome. Renal function is stable. Creatinine 1.51 today. 2. Chronic kidney disease stage III with baseline creatinine near 1.3. 3. A. fib with RVR. Now rate controlled. 4. Volume overload. Improving. 5. Acute on chronic diastolic CHF. 6. Pneumonia maintained on antibiotics. Plan: Maintain IV Lasix 40 mg twice daily - plan to switch to oral diuretics tomorrow. Avoid nephrotoxins. Continue to monitor renal function and urine output.
[2019-05-08 11:29] LABS: Glucose,Whole Blood 155 mg/dL (75-99)
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
--- NOTE | 2019-05-08 13:50 | P.PN ---
Subjective Progress Note Date: 05/08/19 Principal diagnosis: Delirium Hypotensive episode Intravascular volume depletion and dehydration Pleural effusion A. fib with rapid rapid ventricular response Acute exacerbation of diastolic heart failure Right lower lobe pneumonia Status post splenectomy 05/08/2019, patient seen eval examined during the rounds, sitting upright on the chair breathing comfortably more awake and alert, culture results so far has been negative, white cell count continue to go down 23,000 today, renal functions remain stable, liver functions have improved, patient is being considered for rehab, on IV furosemide, if remains stable possible transfer to stepdown 05/06/2019, patient seen eval examined during the rounds labs reviewed medications reviewed care plan discussed patient is more awake and alert confusion have improved significantly patient makes good eye contact and responding appropriately, x-rays and labs reviewed, care plan discussed with the family present at bedside also the patient and staff, increase activity as tolerated, labs reviewed medications reviewed agree with diuresis as planned Lasix does have been increase 05/05/2019, patient seen eval examined during the rounds labs reviewed medications reviewed patient has been successfully extubated, opens eyes was very weak and lethargic, will do the PT OT evaluation increase activity as tolerated, labs reviewed medications reviewed, renal services following, chest x-ray today reviewed stable no significant change continued to have a small bilateral pleural effusion more so on the right side compared to left side, we'll start diuresis, culture results and report are reviewed no positive cultures have been seen, 05/04/2019, patient seen and evaluated examined during the rounds labs reviewed medications reviewed radiographic studies reviewed as well discussed at length with the family present at bedside, patient has been off of propofol, off of levo fed as well he is in A. fib with controlled ventricular rate into 80s blood pressure is stable, in 9 is present but standpoint, minimal respiratory s ecretions are present, mental status is stable, patient is tolerating tube feed well, labs reviewed liver functions continued to improve so as the renal functions as well, patient is getting amiodarone by mouth high dose through the NG tube liver functions remains as stable in fact improving, plan is to put patient on CPAP pressure support and observe closely, white cell count is down to 18,000 from 21,000 hemoglobin is up and stable 8.9 after the transfusion, cultures are so far has been negative, patient is on IV Zosyn 05/03/2019, patient seen eval examined during the rounds, patient remains on full ventilator support also on review fed and propofol, hemoglobin drop down to 6.9 patient is being transfused with 1 unit of packed RBC, posttransfusion sedation holiday will be attempted, currently patient is on assist control of 20 tidal volume 500 rate of 20, PEEP of 5, 40% oxygen, he had adequate urine output labs reviewed renal functions are improving, potassium is normalized, the liver functions are improving as well ALT however remains high, patient likely has a poor perfusion during episodes of A. fib with RVR and hypotension, patient remains on levo fed drip, bicarb drip has been discontinued, heparin has been stopped due to drop in hemoglobin, 05/01/2019, patient seen eval examined during the rounds labs reviewed medications reviewed liver functions have been stabilized protection was slightly elevated, patient was fairly stable except for tachycardia which is A. fib with RVR this morning patient placed back on now for optimal along with the beta bernadette with that blood pressure significantly dropped down with that patient becomes confused and agitated the symptoms are consistent with drop in blood pressure along with development of acidosis and developing hyperkalemia patient did require Kayexalate extra dose patient has been resuscitated with fluid arterial blood gases done which revealed respiratory alkalosis along with some metabolic acidosis, would DC where optimal) meters for beta blockers continue to gently hydrate patient chest x-ray reviewed overall stable, it appears that confusion appears with episodes of hypertension which causes global ischemia and rising lactic acidosis renal functions liver functions, white cell count has been coming down we'll continue to monitor patient off of Lasix, Ativan 1 mg have been given for backside T and a prehension will observe closely in ICU continue high flow oxygen 04/30/2019, patient seen eval reexamined during the rounds labs reviewed medications reviewed computed tomography scan of the chest as well as abdomen and the ultrasound reviewed as well, ultrasound is not showing a very large pleural effusion however fluid is present no stare leave the last interventional radiology to do the right-sided thoracentesis, overall patient decompensate and transferred from the floor to ICU it appears that patient has a hypotensive episodes and the laboratory data indicated that as lactic acid went up rotation went up urine functions progressed as well as liver enzymes shot up as well suggestive of possible ongoing for transient visceral ischemia, will DC the Lasix DC where optimal along with Tylenol Atarax continue gently rehydrate the patient heparin drip has been started, will stop it before thoracentesis as per recommendation of INR, continue broad-spectrum antibiotics continue high flow oxygen, regular care time 35 minutes 04/29/2019, patient seen eval examined during the rounds labs reviewed medications reviewed, remains afebrile with controlled ventricular response patient has been on room air but somewhat short of breath though chest x-ray and computed tomography scan have been reviewed there is moderate pleural effusion the right side has been noted, patient is on anticoagulation I have discussed with RN will stop the anticoagulation today and tomorrow and patient will be yaniv eduled for right-sided thoracentesis, I have ordered ultrasound of the chest as well to look into depth and amount of fluid, blood and urine cultures have been positive for E. coli, repeat blood cultures on have been negative, white cell continued to go down slowly 04/27/2019, patient seen eval examined during the rounds chest x-ray from today reviewed slight worsening of pleural effusion has seen, patient has persistent infiltrate in the right lower lobe some reticular density in the left lower lobe is seen as well, patient denies any chest pain intermittent cough is present, white cell count is slowly improving, blood cultures no growth so far, given that patient has a significant history of splenectomy would recommend to continue IV antibiotics, would give a dose of vancomycin as well, observe renal functions closely This is a 68-year-old male who presents emergency Department with a past medical history significant for atrial fibrillation. Patient is on eliquis. Patient is status post splenectomy. Patient states since Tuesday after he coughed he's been having some right-sided chest pain is very sharp in nature. Patient states movement definitely makes it worse and coughing definitely makes it worse per patient denies any shortness of breath or difficulty breathing. Patient denies any fever chills. Patient denies any abdominal pain. Patient has nausea vomiting diarrhea. Patient denies any headache patient denies numbness weakness. Patient has any back pain. Patient denies any lightheadedness or dizziness. His repeat chest x-ray shows right basal infiltrate along with effusion slightly progressive worsening is seen along with nodular density in the left base Ammann we'll repeat another chest x-ray tomorrow Objective - Vital Signs Vital signs: Vital Signs Temp 97.5 F L 05/08/19 12:00 Pulse 98 05/08/19 12:00 Resp 16 05/08/19 12:00 BP 153/105 05/08/19 12:00 Pulse Ox 96 05/08/19 12:00 Intake & Output 05/07/19 05/08/19 05/08/19 18:59 06:59 18:59 Intake Total 1030 270 260 Output Total 175 2090 1320 Balance -720 -1820 -1060 Weight 90.4 kg 87.8 kg Intake: IV 330 270 260 Anidulafungin 100 mg In 100 100 Sodium Chloride 0.9% 100 ml @ 84 mls/hr IVPB DAILY [facility] Rx#:[id number] Piperacillin-Tazobactam 3 100 100 100 .375 gm In Sodium Chloride 0.9% 100 ml @ 25 mls/hr IVPB Q8HR [facility] Rx# :[id number] Sodium Chloride 0.9% 1, 130 170 60 000 ml @ 10 mls/hr IV . Q24H [facility] Rx#:[id number] Oral 700 Output: Urine 17490 1320 Other: Voiding Method Indwelling Catheter Indwelling Catheter Indwelling Catheter # Bowel Movements 1 ABP, PAP, CO, CI - Last Documented Arterial Blood Pressure 127/76 - Exam - Constitutional General appearance: Awake and alert follow simple commands- EENT Eyes: normal appearance Ears: bilateral: normal - Neck Carotids: bilateral: upstroke normal Thyroid: bilateral: normal size - Respiratory Respiratory: bilateral: diminished more so on the right side compared left side - Cardiovascular Rhythm: regular Heart sounds: normal: S1, S2 - Gastrointestinal General gastrointestinal: Present: normal bowel sounds - Neurologic moving all 4 extremity generalized weakness - Labs CBC & Chem 7: 05/08/19 05:16 05/08/19 05:16 Labs: Abnormal Lab Results - Last 24 Hours (Table) 05/07/19 05/07/19 05/07/19 Range/Units 16:48 17:01 23:00 WBC (3.8-10.6) k/uL RBC (4.30-5.90) m/uL Hgb (13.0-17.5) gm/dL Hct (39.0-53.0) % MCHC (31.0-37.0) g/dL RDW (11.5-15.5) % Neutrophils # (Manual) (1.3-7.7) k/uL Basophils # (Manual) (0-0.2) k/uL Nucleated RBCs (0-0) /100 WBC Sodium (137-145) mmol/L Chloride (98-107) mmol/L Carbon Dioxide (22-30) mmol/L BUN (9-20) mg/dL Creatinine (0.66-1.25) mg/dL Glucose (74-99) mg/dL POC Glucose (mg/dL) 162 H 163 H 129 H (75-99) mg/dL AST (17-59) U/L ALT (4-49) U/L Albumin (3.5-5.0) g/dL 05/08/19 05/08/19 05/08/19 Range/Units 05:16 05:16 06:31 WBC 23.3 H (3.8-10.6) k/uL RBC 3.92 L (4.30-5.90) m/uL Hgb 11.1 L (13.0-17.5) gm/dL Hct 36.0 L (39.0-53.0) % MCHC 30.8 L (31.0-37.0) g/dL RDW 17.1 H (11.5-15.5) % Neutrophils # (Manual) 21.20 H (1.3-7.7) k/uL Basophils # (Manual) 0.23 H (0-0.2) k/uL Nucleated RBCs 4 H (0-0) /100 WBC Sodium 133 L (137-145) mmol/L Chloride 94 L (98-107) mmol/L Carbon Dioxide 33 H (22-30) mmol/L BUN 38 H (9-20) mg/dL Creatinine 1.51 H (0.66-1.25) mg/dL Glucose 171 H (74-99) mg/dL POC Glucose (mg/dL) 142 H (75-99) mg/dL AST 72 H (17-59) U/L ALT 178 H (4-49) U/L Albumin 3.1 L (3.5-5.0) g/dL 05/08/19 Range/Units 11:28 WBC (3.8-10.6) k/uL RBC (4.30-5.90) m/uL Hgb (13.0-17.5) gm/dL Hct (39.0-53.0) % MCHC (31.0-37.0) g/dL RDW (11.5-15.5) % Neutrophils # (Manual) (1.3-7.7) k/uL Basophils # (Manual) (0-0.2) k/uL Nucleated RBCs (0-0) /100 WBC Sodium (137-145) mmol/L Chloride (98-107) mmol/L Carbon Dioxide (22-30) mmol/L BUN (9-20) mg/dL Creatinine (0.66-1.25) mg/dL Glucose (74-99) mg/dL POC Glucose (mg/dL) 155 H (75-99) mg/dL AST (17-59) U/L ALT (4-49) U/L Albumin (3.5-5.0) g/dL Microbiology - Last 24 Hours (Table) 05/02/19 10:45 Blood Culture - Final Blood No Growth after 144 hours 04/30/19 15:05 Acid Fast Bacilli Smear - Final Pleural Fluid Acid Fast Bacilli Culture - Preliminary Assessment and Plan Assessment: Acute on chronic hypoxic respiratory failure, progressively improving Hypotensive episode with transient visceral hypoperfusion causing elevated liver enzymes, renal function, lactic acidosis and hyperkalemia improved as the blood pressure is stable hyperkalemia, stable Elevated liver enzymes Stable right-sided pleural effusion mild to moderate, status post right-sided thoracentesis A. fib with rapid rapid ventricular response now more of a controlled response with amiodarone Acute exacerbation of diastolic heart failure Right lower lobe pneumonia Pleural effusion likely related to fluid overload and diastolic heart failure with A. fib, with contribution from possible parapneumonic pneumonia, will try a small dose of Lasix Status post splenectomy Sepsis due to pneumonia Plan: Continue gentle diuresis Increase activity as tolerated On supplemental oxygen, Monitor renal and liver functions closely Pleural fluid findings reviewed Continue downgraded to selective Continue to avoid medicine that could contribute to hypotension and liver injury Keep blood pressure map over 65-75 Antibiotics IV per infectious disease services Cardiology consultation and recommendation results reviewed Further plan of care as per clinical response of the patient Time with Patient: Greater than 30
[2019-05-08] MEDS: amLODIPine 5 MG TAB PO SCH (14:46)
[2019-05-08 17:56] LABS: Glucose,Whole Blood 122 mg/dL (75-99)
[2019-05-08 19:51] LABS: Glucose,Whole Blood 136 mg/dL (75-99)
[2019-05-08] MEDS: PRAVASTATIN SODIUM 20 MG TAB PO SCH (20:02)
[2019-05-08] MEDS: AMOXIC-POT CLAV 875-125MG 1 EACH TAB PO SCH (20:02)
[2019-05-08] MEDS: QUEtiapine 100 MG TAB PO SCH (20:02)
--- NOTE | 2019-05-08 20:39 | PN ---
PROGRESS NOTE DATE OF SERVICE: 05/08/2019 REASON FOR FOLLOWUP: 1. Pneumonia. 2. Leukocytosis. INTERVAL HISTORY: The patient is currently afebrile, has been breathing comfortably on room air. The patient denies having any chest pain. Did have minimal cough. No nausea. No vomiting. No abdominal pain or diarrhea. PHYSICAL EXAMINATION: Blood pressure 153/100 with a pulse of 98, temperature 97.5. He is 96% on room air. General description is an elderly male up in the chair in no distress. RESPIRATORY SYSTEM: Unlabored breathing with decreased breath sounds at the base. No wheeze. HEART: S1, S2. Regular rate and rhythm. ABDOMEN: Soft. No tenderness. LABS: Hemoglobin is 11.1, white count 23.3 with a BUN of 38, creatinine 1.51. DIAGNOSTIC IMPRESSION AND PLAN: 1. Patient with acute respiratory failure, likely a component of pneumonia, adequately treated. He is currently on oral Augmentin; to continue to finish course. 2. Elevated white count with bacteriuria, likely steroid effect plus/minus oropharyngeal , for which the patient is currently covered with nystatin swish and swallow and Eraxis. White count is showing a downward trend. Continue with supportive care. MMODL / IJN: [id number] /
[2019-05-09 04:49] LABS: Anisocytosis Slight; HCT 35.3 % (39.0-53.0); HGB 10.8 gm/dL (13.0-17.5); Hypochromasia Slight; MCH 28.2 pg (25.0-35.0); MCHC 30.5 g/dL (31.0-37.0); MCV 92.5 fL (80.0-100.0); Mean Platelet Volume 8.5; Platelet Count 316 k/uL (150-450); RBC 3.81 m/uL (4.30-5.90); RDW 17.2 % (11.5-15.5)
[2019-05-09 05:01] LABS: Albumin 2.9 g/dL (3.5-5.0); Calcium 8.5 mg/dL (8.4-10.2); Potassium 3.4 mmol/L (3.5-5.1); Total Bilirubin 0.6 mg/dL (0.2-1.3); Total Protein 6.2 g/dL (6.3-8.2)
[2019-05-09] MEDS: NOREPINEPHRINE 4 MG in SODIUM CHLORIDE 0.9% 250 ML IV SCH (05:23)
[2019-05-09] MEDS: NYSTATIN 100,000 UNIT/ML SUSP 500,000 UNIT/5 ML CUP PO SCH ×3 (05:24→13:01)
[2019-05-09 05:53] LABS: Band Neutrophils % 1 %; Lymphocytes # (M) 0.56 k/uL (1.0-4.8); Monocytes # (M) 1.13 k/uL (0-1.0); Neutrophils % (M) 91 %; Nucleated Red Blood Cells 2 /100 WBC (0-0); Total Cells Counted 200; WBC 18.8 k/uL (3.8-10.6)
[2019-05-09 05:54] LABS: Poikilocytosis (M) Present; Target Cells Present
[2019-05-09 06:25] LABS: Glucose,Whole Blood 116 mg/dL (75-99)
[2019-05-09] MEDS: SODIUM CHLORIDE 0.9% 1,000 ML IV SCH (06:28)
[2019-05-09] MEDS: POTASSIUM CHLORIDE ER 20 MEQ TAB.ER PO SCH ×2 (06:28→09:23)
[2019-05-09] MEDS: INSULIN ASPART (NovoLOG) 100 UNIT/ML VIAL SQ SCH ×2 (06:28→12:21)
[2019-05-09] MEDS: amLODIPine 5 MG TAB PO SCH (09:23)
[2019-05-09] MEDS: AMOXIC-POT CLAV 875-125MG 1 EACH TAB PO SCH (09:23)
[2019-05-09] MEDS: AMIODARONE 200 MG TAB PO SCH (09:23)
[2019-05-09] MEDS: FUROSEMIDE 10 MG/ML 4 ML VIAL IV SCH (09:24)
[2019-05-09] MEDS: methylPREDNISolone SOD SUCCI 40 MG/ML 1 ML VIAL IV SCH (09:24)
[2019-05-09] MEDS: FERROUS SULFATE 325 MG TAB PO SCH (09:24)
[2019-05-09] MEDS: ANIDULAFUNGIN 100 MG in SODIUM CHLORIDE 0.9% 100 ML IVPB SCH (09:24)
[2019-05-09] MEDS: APIXABAN 2.5 MG TABLET PO SCH (09:24)
[2019-05-09] MEDS: METOPROLOL TARTRATE 50 MG TAB PO SCH (09:25)
[2019-05-09] MEDS: ALPRAZolam 0.25 MG TAB PO PRN (09:25)
[2019-05-09] MEDS: PANTOPRAZOLE 40 MG/10 ML VIAL IVP SCH (09:25)
[2019-05-09] MEDS: MULTIVITAMINS, THERA 1 EACH TAB PO SCH (09:25)
--- NOTE | 2019-05-09 10:32 | P.PN ---
Subjective Patient is seen in follow-up for acute kidney injury on chronic kidney disease. Renal function slightly worse today which is due to diuresis. Denies chest pain or shortness of breath. Nonoliguric. Currently maintained on IV Lasix 40 mg twice daily. Vital signs are stable. General: The patient appeared well nourished and normally developed. HEENT: Head exam is unremarkable. Neck is without jugular venous distension. LUNGS: Lungs are clear to auscultation and percussion. Breath sounds decreased. HEART: Rate and Rhythm are regular. First and second heart sounds normal. No murmurs, rubs or gallops. ABDOMEN: Abdominal exam reveals normal bowel sounds. Non-tender and non- distended. EXTREMITITES: Trace edema. Objective - Vital Signs Vital signs: Vital Signs Temp 98 F 05/09/19 04:00 Pulse 86 05/09/19 04:00 Resp 20 05/09/19 04:00 BP 128/95 05/09/19 04:00 Pulse Ox 95 05/09/19 04:00 Intake & Output 05/08/19 05/09/19 05/09/19 18:59 06:59 18:59 Intake Total 320 90 Output Total 1660 2465 Balance -1340 -2375 Weight 83.7 kg Intake: IV 320 90 Anidulafungin 100 mg In 100 Sodium Chloride 0.9% 100 ml @ 84 mls/hr IVPB DAILY [facility] Rx#:[id number] Piperacillin-Tazobactam 3 100 .375 gm In Sodium Chloride 0.9% 100 ml @ 25 mls/hr IVPB Q8HR [facility] Rx# :[id number] Sodium Chloride 0.9% 1, 120 90 000 ml @ 10 mls/hr IV . Q24H [facility] Rx#:[id number] Output: Urine 1660 2465 Other: Voiding Method Indwelling Catheter Indwelling Catheter # Bowel Movements 1 ABP, PAP, CO, CI - Last Documented Arterial Blood Pressure 127/76 - Labs CBC & Chem 7: 05/09/19 04:24 05/09/19 04:24 Labs: Abnormal Lab Results - Last 24 Hours (Table) 05/08/19 05/08/19 05/08/19 Range/Units 11:28 17:55 19:49 WBC (3.8-10.6) k/uL RBC (4.30-5.90) m/uL Hgb (13.0-17.5) gm/dL Hct (39.0-53.0) % MCHC (31.0-37.0) g/dL RDW (11.5-15.5) % Neutrophils # (Manual) (1.3-7.7) k/uL Lymphocytes # (Manual) (1.0-4.8) k/uL Monocytes # (Manual) (0-1.0) k/uL Nucleated RBCs (0-0) /100 WBC Sodium (137-145) mmol/L Potassium (3.5-5.1) mmol/L Chloride (98-107) mmol/L Carbon Dioxide (22-30) mmol/L BUN (9-20) mg/dL Creatinine (0.66-1.25) mg/dL Glucose (74-99) mg/dL POC Glucose (mg/dL) 155 H 122 H 136 H (75-99) mg/dL ALT (4-49) U/L Total Protein (6.3-8.2) g/dL Albumin (3.5-5.0) g/dL 05/09/19 05/09/19 05/09/19 Range/Units 04:24 04:24 06:23 WBC 18.8 H (3.8-10.6) k/uL RBC 3.81 L (4.30-5.90) m/uL Hgb 10.8 L (13.0-17.5) gm/dL Hct 35.3 L (39.0-53.0) % MCHC 30.5 L (31.0-37.0) g/dL RDW 17.2 H (11.5-15.5) % Neutrophils # (Manual) 17.20 H (1.3-7.7) k/uL Lymphocytes # (Manual) 0.56 L (1.0-4.8) k/uL Monocytes # (Manual) 1.13 H (0-1.0) k/uL Nucleated RBCs 2 H (0-0) /100 WBC Sodium 135 L (137-145) mmol/L Potassium 3.4 L (3.5-5.1) mmol/L Chloride 92 L (98-107) mmol/L Carbon Dioxide 37 H (22-30) mmol/L BUN 40 H (9-20) mg/dL Creatinine 1.65 H (0.66-1.25) mg/dL Glucose 116 H (74-99) mg/dL POC Glucose (mg/dL) 116 H (75-99) mg/dL ALT 156 H (4-49) U/L Total Protein 6.2 L (6.3-8.2) g/dL Albumin 2.9 L (3.5-5.0) g/dL Microbiology - Last 24 Hours (Table) 05/02/19 10:45 Blood Culture - Final Blood No Growth after 144 hours Assessment and Plan Plan: Assessment: 1. Acute kidney injury secondary to ATN secondary to hemodynamic instability as well as component of cardiorenal syndrome. Renal function slightly worse. Cre atinine 1.65 today. 2. Chronic kidney disease stage III with baseline creatinine near 1.3. 3. A. fib with RVR. Now rate controlled. 4. Volume overload. Improving. 5. Acute on chronic diastolic CHF. 6. Pneumonia maintained on antibiotics. 7. Hyperkalemia secondary to diuresis. Plan: Change Lasix to 40 mg orally twice daily. Replace potassium. 40 mEq today. Avoid nephrotoxins. Continue to monitor renal function and urine output.
--- NOTE | 2019-05-09 11:10 | P.PN ---
Subjective Progress Note Date: 05/09/19 Principal diagnosis: Delirium Hypotensive episode Intravascular volume depletion and dehydration Pleural effusion A. fib with rapid rapid ventricular response Acute exacerbation of diastolic heart failure Right lower lobe pneumonia Status post splenectomy 05/09/2019, patient seen eval examined during the rounds, labs reviewed medications reviewed, patient is an -400 mL in last 24 hours, BUN/creatinine slightly up, physical activity and ambulation continued to improve, patient remain afebrile with stable hemodynamics, cysts diastolic blood pressure slightly up, oxygen saturation 94-96% room air breathing comfortably, labs reviewed white cell count continue to improve gradually, hemoglobin and hematocrit remain stable, BUN/creatinine slightly trending up but remained overall stable, stool for C. difficile is negative 05/08/2019, patient seen eval examined during the rounds, sitting upright on the chair breathing comfortably more awake and alert, culture results so far has been negative, white cell count continue to go down 23,000 today, renal functions remain stable, liver functions have improved, patient is being considered for rehab, on IV furosemide, if remains stable possible transfer to stepdown 05/06/2019, patient seen eval examined during the rounds labs reviewed medications reviewed care plan discussed patient is more awake and alert confusion have improved significantly patient makes good eye contact and responding appropriately, x-rays and labs reviewed, care plan discussed with the family present at bedside also the patient and staff, increase activity as tolerated, labs reviewed medications reviewed agree with diuresis as planned Las ix does have been increase 05/05/2019, patient seen eval examined during the rounds labs reviewed m edications reviewed patient has been successfully extubated, opens eyes was very weak and lethargic, will do the PT OT evaluation increase activity as tolerated, labs reviewed medications reviewed, renal services following, chest x-ray today reviewed stable no significant change continued to have a small bilateral pleural effusion more so on the right side compared to left side, we'll start diuresis, culture results and report are reviewed no positive cultures have been seen, 05/04/2019, patient seen and evaluated examined during the rounds labs reviewed medications reviewed radiographic studies reviewed as well discussed at length with the family present at bedside, patient has been off of propofol, off of levo fed as well he is in A. fib with controlled ventricular rate into 80s blood pressure is stable, in 9 is present but standpoint, minimal respiratory secretions are present, mental status is stable, patient is tolerating tube feed well, labs reviewed liver functions continued to improve so as the renal functions as well, patient is getting amiodarone by mouth high dose through the NG tube liver functions remains as stable in fact improving, plan is to put patient on CPAP pressure support and observe closely, white cell count is down to 18,000 from 21,000 hemoglobin is up and stable 8.9 after the transfusion, cultures are so far has been negative, patient is on IV Zosyn 05/03/2019, patient seen eval examined during the rounds, patient remains on full ventilator support also on review fed and propofol, hemoglobin drop down to 6.9 patient is being transfused with 1 unit of packed RBC, posttransfusion sedation holiday will be attempted, currently patient is on assist control of 20 tidal volume 500 rate of 20, PEEP of 5, 40% oxygen, he had adequate urine output labs reviewed renal functions are improving, potassium is normalized, the liver functions are improving as well ALT however remains high, patient likely has a poor perfusion during episodes of A. fib with RVR and hypotension, patient remains on levo fed drip, bicarb drip has been discontinued, heparin has been stopped due to drop in hemoglobin, 05/01/2019, patient seen eval examined during the rounds labs reviewed medications reviewed liver functions have been stabilized protection was slightly elevated, patient was fairly stable except for tachycardia which is A. fib with RVR this morning patient placed back on now for optimal along with the beta bernadette with that blood pressure significantly dropped down with that patient becomes confused and agitated the symptoms are consistent with drop in blood pressure along with development of acidosis and developing hyperkalemia patient did require Kayexalate extra dose patient has been resuscitated with fluid arterial blood gases done which revealed respiratory alkalosis along with some metabolic acidosis, would DC where optimal) meters for beta blockers continue to gently hydrate patient chest x-ray reviewed overall stable, it appears that confusion appears with episodes of hypertension which causes global ischemia and rising lactic acidosis renal functions liver functions, white cell count has been coming down we'll continue to monitor patient off of Lasix, Ativan 1 mg have been given for backside T and a prehension will observe closely in ICU continue high flow oxygen 04/30/2019, patient seen eval reexamined during the rounds labs reviewed medications reviewed computed tomography scan of the chest as well as abdomen and the ultrasound reviewed as well, ultrasound is not showing a very large pleural effusion however fluid is present no stare leave the last interventional radiology to do the right-sided thoracentesis, overall patient decompensate and transferred from the floor to ICU it appears that patient has a hypotensive episodes and the laboratory data indicated that as lactic acid went up rotation went up urine functions progressed as well as liver enzymes shot up as well suggestive of possible ongoing for transient visceral ischemia, will DC the Lasix DC where optimal along with Tylenol Atarax continue gently rehydrate the patient heparin drip has been started, will stop it before thoracentesis as per recommendation of INR, continue broad-spectrum antibiotics continue high flow oxygen, regular care time 35 minutes 04/29/2019, patient seen eval examined during the rounds labs reviewed medications reviewed, remains afebrile with controlled ventricular response patient has been on room air but somewhat short of breath though chest x-ray and computed tomography scan have been reviewed there is moderate pleural effusion the right side has been noted, patient is on anticoagulation I have discussed with RN will stop the anticoagulation today and tomorrow and patient will be scheduled for right-sided thoracentesis, I have ordered ultrasound of the chest as well to look into depth and amount of fluid, blood and urine cultures have been positive for E. coli, repeat blood cultures on have been negative, white cell continued to go down slowly 04/27/2019, patient seen eval examined during the rounds chest x-ray from today reviewed slight worsening of pleural effusion has seen, patient has persistent infiltrate in the right lower lobe some reticular density in the left lower lobe is seen as well, patient denies any chest pain intermittent cough is present, white cell count is slowly improving, blood cultures no growth so far, given that patient has a significant history of splenectomy would recommend to continue IV antibiotics, would give a dose of vancomycin as well, observe renal functions closely This is a 68-year-old male who presents emergency Department with a past medical history significant for atrial fibrillation. Patient is on eliquis. Patient is status post splenectomy. Patient states since Tuesday after he coughed he's been having some right-sided chest pain is very sharp in nature. Patient states movement definitely makes it worse and coughing definitely makes it worse per patient denies any shortness of breath or difficulty breathing. Patient denies any fever chills. Patient denies any abdominal pain. Patient has nausea vomiting diarrhea. Patient denies any headache patient denies numbness weakness. Patient has any back pain. Patient denies any lightheadedness or dizziness. His repeat chest x-ray shows right basal infiltrate along with effusion slightly progressive worsening is seen along with nodular density in the left base Ammann we'll repeat another chest x-ray tomorrow Objective - Vital Signs Vital signs: Vital Signs Temp 97.4 F L 05/09/19 08:00 Pulse 98 05/09/19 08:00 Resp 12 05/09/19 08:00 BP 134/106 05/09/19 08:00 Pulse Ox 96 05/09/19 08:00 Intake & Output 05/08/19 05/09/19 05/09/19 18:59 06:59 18:59 Intake Total 320 90 Output Total 1660 2465 Balance -1340 -2375 Weight 83.7 kg Intake: IV 320 90 Anidulafungin 100 mg In 100 Sodium Chloride 0.9% 100 ml @ 84 mls/hr IVPB DAILY [facility] Rx#:[id number] Piperacillin-Tazobactam 3 100 .375 gm In Sodium Chloride 0.9% 100 ml @ 25 mls/hr IVPB Q8HR [facility] Rx# :[id number] Sodium Chloride 0.9% 1, 120 90 000 ml @ 10 mls/hr IV . Q24H [facility] Rx#:[id number] Output: Urine 1660 2465 Other: Voiding Method Indwelling Catheter Indwelling Catheter Indwelling Catheter # Bowel Movements 1 ABP, PAP, CO, CI - Last Documented Arterial Blood Pressure 127/76 - Exam - Constitutional General appearance: Awake and alert follow simple commands- EENT Eyes: normal appearance Ears: bilateral: normal - Neck Carotids: bilateral: upstroke normal Thyroid: bilateral: normal size - Respiratory Respiratory: bilateral: diminished more so on the right side compared left side - Cardiovascular Rhythm: regular Heart sounds: normal: S1, S2 - Gastrointestinal General gastrointestinal: Present: normal bowel sounds - Neurologic moving all 4 extremity generalized weakness - Labs CBC & Chem 7: 05/09/19 04:24 05/09/19 04:24 Labs: Abnormal Lab Results - Last 24 Hours (Table) 05/08/19 05/08/19 05/08/19 Range/Units 11:28 17:55 19:49 WBC (3.8-10.6) k/uL RBC (4.30-5.90) m/uL Hgb (13.0-17.5) gm/dL Hct (39.0-53.0) % MCHC (31.0-37.0) g/dL RDW (11.5-15.5) % Neutrophils # (Manual) (1.3-7.7) k/uL Lymphocytes # (Manual) (1.0-4.8) k/uL Monocytes # (Manual) (0-1.0) k/uL Nucleated RBCs (0-0) /100 WBC Sodium (137-145) mmol/L Potassium (3.5-5.1) mmol/L Chloride (98-107) mmol/L Carbon Dioxide (22-30) mmol/L BUN (9-20) mg/dL Creatinine (0.66-1.25) mg/dL Glucose (74-99) mg/dL POC Glucose (mg/dL) 155 H 122 H 136 H (75-99) mg/dL ALT (4-49) U/L Total Protein (6.3-8.2) g/dL Albumin (3.5-5.0) g/dL 05/09/19 05/09/19 05/09/19 Range/Units 04:24 04:24 06:23 WBC 18.8 H (3.8-10.6) k/uL RBC 3.81 L (4.30-5.90) m/uL Hgb 10.8 L (13.0-17.5) gm/dL Hct 35.3 L (39.0-53.0) % MCHC 30.5 L (31.0-37.0) g/dL RDW 17.2 H (11.5-15.5) % Neutrophils # (Manual) 17.20 H (1.3-7.7) k/uL Lymphocytes # (Manual) 0.56 L (1.0-4.8) k/uL Monocytes # (Manual) 1.13 H (0-1.0) k/uL Nucleated RBCs 2 H (0-0) /100 WBC Sodium 135 L (137-145) mmol/L Potassium 3.4 L (3.5-5.1) mmol/L Chloride 92 L (98-107) mmol/L Carbon Dioxide 37 H (22-30) mmol/L BUN 40 H (9-20) mg/dL Creatinine 1.65 H (0.66-1.25) mg/dL Glucose 116 H (74-99) mg/dL POC Glucose (mg/dL) 116 H (75-99) mg/dL ALT 156 H (4-49) U/L Total Protein 6.2 L (6.3-8.2) g/dL Albumin 2.9 L (3.5-5.0) g/dL Microbiology - Last 24 Hours (Table) 05/02/19 10:45 Blood Culture - Final Blood No Growth after 144 hours Assessment and Plan Assessment: Acute on chronic hypoxic respiratory failure, progressively improving Acute on chronic renal failure stage III Hypotensive episode with transient visceral hypoperfusion causing elevated liver enzymes, renal function, lactic acidosis and hyperkalemia improved as the blood pressure is stable hyperkalemia, stable Elevated liver enzymes Stable right-sided pleural effusion mild to moderate, status post right-sided thoracentesis A. fib with rapid rapid ventricular response now more of a controlled response with amiodarone Acute exacerbation of diastolic heart failure Right lower lobe pneumonia Pleural effusion likely related to fluid overload and diastolic heart failure with A. fib, with contribution from possible parapneumonic pneumonia, will try a small dose of Lasix Status post splenectomy Sepsis due to pneumonia Plan: Continue gentle diuresis will defer the dose of Lasix to renal service Increase activity as tolerated On supplemental oxygen, Monitor renal and liver functions closely Pleural fluid findings reviewed Continue downgraded to selective Continue to avoid medicine that could contribute to hypotension and liver injury Keep blood pressure map over 65-75 Antibiotics IV per infectious disease services Cardiology consultation and recommendation results reviewed Further plan of care as per clinical response of the patient Time with Patient: Greater than 30
[2019-05-09 11:53] LABS: Glucose,Whole Blood 110 mg/dL (75-99)
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
[2019-05-09] MEDS ORDERED: FUROSEMIDE 40 MG TAB PO SCH (16:00)
[2019-05-09 16:07] VITALS: BP 140/103; PULSE 102; RESP 16; TEMP 97.7
--- NOTE | 2019-05-09 16:39 | PN ---
PROGRESS NOTE DATE OF SERVICE: 05/09/2019 REASON FOR FOLLOWUP: Pneumonia and oropharyngeal candidiasis. INTERVAL HISTORY: The patient is currently afebrile. The patient has been breathing comfortably. Denies having any chest pain or shortness of breath. Minimal cough. No nausea, no vomiting. No abdominal pain or diarrhea. PHYSICAL EXAMINATION: Blood pressure 139/100 with a pulse of 112, temperature 98. He is 92% on room air. General description is an elderly male up in the chair in no distress. RESPIRATORY SYSTEM: Unlabored breathing with some decreased breath sounds at the base. No wheeze. HEART: S1, S2. Regular rate and rhythm. ABDOMEN: Soft. No tenderness. LABS: Hemoglobin is 10.8, white count 18.8. BUN of 40, creatinine 1.65. DIAGNOSTIC IMPRESSION AND PLAN: 1. Patient with acute respiratory failure which is likely multifactorial in this patient who did have a component of pneumonia. The patient's underlying pneumonia has been adequately treated; currently on oral Augmentin; to continue for a few days to finish his course of therapy. 2. Patient with oropharyngeal candidiasis, for which the patient is being treated with Eraxis and nystatin swish and swallow; to continue with swish and swallow for about a week. Plan of care was discussed with the nurse practitioner for the admitting team. MMODL / IJN: [id number] /
== END 2019-05-09 16:31 | DRG 871 ==
LOC: EC 10:05 → 3SCARD 11:16 → 2SICU 04-30 02:51
PROVIDERS: ADMIT Internal Medicine Sleep Medicine; ATTEND Internal Medicine
PROC: 0W993ZX Drainage of Right Pleural Cavity, Percutaneous Approach, Diagnostic (ICD-10-PCS; 2019-04-30)
PROC: 02H633Z Insertion of Infusion Device into Right Atrium, Percutaneous Approach (ICD-10-PCS; 2019-05-01)
PROC: 0BH17EZ Insertion of Endotracheal Airway into Trachea, Via Natural or Artificial Opening (ICD-10-PCS; principal; 2019-05-01 21:30)
PROC: 5A1945Z Respiratory Ventilation, 24-96 Consecutive Hours (ICD-10-PCS; principal; 2019-05-01 21:30)
PROC: 0D9670Z Drainage of Stomach with Drainage Device, Via Natural or Artificial Opening (ICD-10-PCS; principal; 2019-05-01 21:30)
PROC: 05HY33Z Insertion of Infusion Device into Upper Vein, Percutaneous Approach (ICD-10-PCS; principal; 2019-05-01 21:30)
PROC: 3E0G76Z Introduction of Nutritional Substance into Upper GI, Via Natural or Artificial Opening (ICD-10-PCS; 2019-05-03)
PROC: 30243N1 Transfusion of Nonautologous Red Blood Cells into Central Vein, Percutaneous Approach (ICD-10-PCS; 2019-05-03)
DX: A41.9 Sepsis, unspecified organism (principal); J18.9 Pneumonia, unspecified organism; I50.33 Acute on chronic diastolic (congestive) heart failure; N17.0 Acute kidney failure with tubular necrosis; K72.00 Acute and subacute hepatic failure without coma; J96.21 Acute and chronic respiratory failure with hypoxia; R65.21 Severe sepsis with septic shock; J91.8 Pleural effusion in other conditions classified elsewhere; B37.0 Candidal stomatitis; E87.4 Mixed disorder of acid-base balance; R18.8 Other ascites; I13.0 Hypertensive heart and chronic kidney disease with heart failure and stage 1 through stage 4 chronic kidney disease, or unspecified chronic kidney disease; I48.11 Longstanding persistent atrial fibrillation; J98.11 Atelectasis; N18.3 Chronic kidney disease, stage 3 (moderate); E87.5 Hyperkalemia; E86.0 Dehydration; D50.9 Iron deficiency anemia, unspecified; K80.20 Calculus of gallbladder without cholecystitis without obstruction; R91.1 Solitary pulmonary nodule; K21.9 Gastro-esophageal reflux disease without esophagitis; E78.5 Hyperlipidemia, unspecified; K44.9 Diaphragmatic hernia without obstruction or gangrene; M54.9 Dorsalgia, unspecified; F41.9 Anxiety disorder, unspecified; R74.8 Abnormal levels of other serum enzymes; T50.2X5A Adverse effect of carbonic-anhydrase inhibitors, benzothiadiazides and other diuretics, initial encounter; D72.829 Elevated white blood cell count, unspecified; T38.0X5A Adverse effect of glucocorticoids and synthetic analogues, initial encounter; I99.9 Unspecified disorder of circulatory system; I83.90 Asymptomatic varicose veins of unspecified lower extremity; R19.7 Diarrhea, unspecified; Z79.01 Long term (current) use of anticoagulants; Z79.1 Long term (current) use of non-steroidal anti-inflammatories (NSAID); Z79.899 Other long term (current) drug therapy; W19.XXXA Unspecified fall, initial encounter; Z86.79 Personal history of other diseases of the circulatory system; Z90.81 Acquired absence of spleen; Z87.820 Personal history of traumatic brain injury; Z98.890 Other specified postprocedural states; Z82.49 Family history of ischemic heart disease and other diseases of the circulatory system
CPT/HCPCS: 32555; 36415; 36573; 36600; 71045; 71046; 71250; 74176; 76604; 76705; 80048; 80051; 80053; 80074; 80202; 81001; 82103; 82105; 82140; 82150; 82390; 82533; 82553; 82607; 82728; 82746; 82805; 82945; 83516; 83540; 83550; 83605; 83615; 83690; 83735; 83880; 84100; 84132; 84145; 84157; 84450; 84460; 84484; 85025; 85379; 85610; 85730; 86038; 86376; 86850; 86900; 86901; 86920; 87040; 87070; 87075; 87086; 87102; 87116; 87205; 87206; 87324; 87502; 88108; 88305; 89050; 93005; 93306; 94002; 94003; 94640; 94770; 96365; 96366; 96368; 96375; 96376; 99285

== ENCOUNTER → 2019-11-19 | Outpatient (CLI) | payer MEDICARE ==
--- NOTE | 2019-11-19 12:00 | US ---
EXAMINATION TYPE: US kidneys/renal and bladder DATE OF EXAM: 11/19/2019 COMPARISON: CT April 30, 2019 CLINICAL HISTORY: N17.9 [place]. EXAM MEASUREMENTS: Right Kidney: 11.8 x 5.2 x 5.5 cm Left Kidney: 10.7 x 5.0 x 5.3 cm Right Kidney: No hydronephrosis or masses seen Left Kidney: No hydronephrosis or masses seen Bladder: not well distended Bilateral Jets seen: Yes There is no evidence for hydronephrosis at this point in time. No nephrolithiasis is seen. No wally s are identified. The urinary bladder is not greatly distended. Bilateral ureteral jets are seen. IMPRESSION: No hydronephrosis is noted bilaterally.
== END | disposition home or self-care (01) ==
LOC: RADUSWWP 11:36
PROVIDERS: ATTEND Internal Medicine Nephrology
DX: N17.9 Acute kidney failure, unspecified (principal)
CPT/HCPCS: 76770

== ENCOUNTER → 2019-11-27 | Outpatient (CLI) | payer MEDICARE ==
--- NOTE | 2019-11-28 09:25 | MM ---
Reason for exam: clinical finding. Indicated problem(s): palpable abnormality in the left breast. Physical Findings: Nurse Summary: 0.5 x 1cm nodule in the right breast at the nipple and a 2 x 2cm nodule in the left breast at the nipple (nurse ts). MG 3D Diag Mammo W/Cad CHIVO Bilateral CC and MLO view(s) were taken. The breast tissue is heterogeneously dense. This may lower the sensitivity of mammography. Asymmetry greater in the left breast. These results were verbally communicated with the patient and result sheet given to the patient on 11/27/19. ASSESSMENT: Incomplete: need additional imaging evaluation, BI-RAD 0 RECOMMENDATION: Ultrasound of both breasts.
--- NOTE | 2019-11-28 09:28 | USB ---
Reason for exam: additional evaluation requested from abnormal screening. US Breast BILAT Right complete breast ultrasound includes all four quadrants, the retroareolar region and axilla. Finding demonstrates no cystic or solid lesion seen. Left complete breast ultrasound includes all four quadrants, the retroareolar region and axilla. Finding demonstrates a 2.8 x 0.8 x 4.0cm hypoechoic, vascular lesion at the posterior nipple. Could be gynecomastia not completely classic appearance, pathology correlation recommended. These results were verbally communicated with the patient and result sheet given to the patient on 11/27/19. ASSESSMENT: Suspicious, BI-RAD 4 RECOMMENDATION: Ultrasound core biopsy of the left breast. Called Dr. Ledezma's office with mammographic findings and has scheduled an appointment for the patient for 12/21/19 at 11:[address] More. Biopsy scheduled for 12/21/19 at 1 o'clock. PRELIMINARY REPORT CALLED AND FAXED TO DR. MORE ON 11/28/19.
== END | disposition home or self-care (01) ==
LOC: RADMAMWWP 13:10
PROVIDERS: ATTEND Family Medicine
DX: N62 Hypertrophy of breast (principal); R92.8 Other abnormal and inconclusive findings on diagnostic imaging of breast
CPT/HCPCS: 77066; 76641; G0279; 77062

== ENCOUNTER → 2019-12-21 | Outpatient (CLI) | payer MEDICARE ==
[2019-12-21 11:15] VITALS: BP 114/77; PULSE 82; RESP 20; TEMP 97.9
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
== END | disposition home or self-care (01) ==
LOC: WWCWWP 10:29
PROVIDERS: ATTEND Surgery
DX: Z53.9 Procedure and treatment not carried out, unspecified reason (principal)

== ENCOUNTER → 2019-12-24 | Day surgery (SDC) | payer MEDICARE ==
[2019-12-24 12:20] VITALS: RESP 16
[2019-12-24 14:03] VITALS: BP 107/68; PULSE 71; TEMP 97.6
--- NOTE | 2019-12-24 15:55 | USB ---
EXAMINATION TYPE: US biopsy breast VAD LT DATE OF EXAM: 12/24/2019 CLINICAL HISTORY: 69-year-old male with palpable abnormality behind the left nipple, R92.8 Abnormal Mammogram. TECHNIQUE: Ultrasound guided core biopsy of the left breast. COMPARISON: 11/27/2019 FINDINGS: The procedure of ultrasound guided core biopsy was explained to the patient. Benefits, alternatives, and risks were discussed. An informed consent was then obtained. The patient was placed in supine positioning for imaging and for the procedure. The overlying skin was prepped and draped in usual sterile fashion. Lidocaine was used as anesthetic into the skin followed by lidocaine/epinephrine into the subcutaneous tissue and area of concern behind the left nipple. Under ultrasound guidance, a 13-gauge vacuum-assisted mammotome Elite biopsy gun device was used to obtain 5 core samples. No clip was placed as gynecomastia is suspected. The patient tolerated the procedure well without any immediate complication. The patient was kept in the radiology department for short stay after the procedure and then discharged home in stable condition. IMPRESSION: Successful, uncomplicated ultrasound guided core biopsy of area beyond the left nipple, suspected gynecomastia. No clip was placed. Full pathology results to follow. Pathology Results: Benign LEFT BREAST, ULTRASOUND GUIDED CORE BIOPSY: Gynecomastia. Recommendation Manage on a clinical basis. NOREEN
== END ==
LOC: RADUSWWP 11:47
PROVIDERS: ATTEND Surgery
DX: N62 Hypertrophy of breast (principal); R92.8 Other abnormal and inconclusive findings on diagnostic imaging of breast
CPT/HCPCS: 88305; 19083; J2001

== ENCOUNTER → 2019-12-28 | Outpatient (CLI) | payer MEDICARE ==
[2019-12-28 10:17] VITALS: BP 101/76; PULSE 68; RESP 16; TEMP 97.8
--- NOTE | 2019-12-28 10:35 | P.PN ---
Subjective Progress Note Date: 12/28/19 Principal diagnosis: Ultrasound-guided biopsy results/gynecomastia Rodriguez is a 59-year-old white male who was underwent a left breast ultrasound core biopsy on [id number] a palpable mass in his left breast. Pathology is consistent with gynecomastia. The patient tolerated the procedure without difficulty. Objective - Vital Signs Vital signs: Vital Signs Temp 97.8 F 12/28/19 10:14 Pulse 68 12/28/19 10:14 Resp 16 12/28/19 10:14 BP 101/76 12/28/19 10:14 Pulse Ox 99 12/28/19 10:14 Intake & Output 12/27/19 12/28/19 12/28/19 18:59 06:59 18:59 Weight 81.647 kg - Exam BMI 27.8 - Constitutional General appearance: Present: average body habitus - EENT Eyes: Present: EOMI ENT: Present: hearing grossly normal - Neck Neck: Present: normal ROM - Respiratory Details: Wheezing left lung base, right lung clear - Cardiovascular Heart sounds: normal: S1, S2 - Integumentary Integumentary Comment(s): Biopsy site left breast clean and dry no evidence of infection or hematoma Assessment and Plan Assessment: Impression: Kidney decreased function A. fib on Eliquis Closed head injury GERD Hypertension Gynecomastia Plan: 1. Repeat ultrasound left breast in 6 months, physician appointment at that time 2. At this time patient does not need any surgical intervention 3. Medical management of medical conditions CC: Dr. Ledezma encounter 15 minutes, > 50% of time spent in planning and counselling
== END | disposition home or self-care (01) ==
LOC: WWCWWP 09:52
PROVIDERS: ATTEND Surgery
DX: Z53.9 Procedure and treatment not carried out, unspecified reason (principal)

== ENCOUNTER → 2020-07-02 | Outpatient (CLI) | payer MEDICARE ==
--- NOTE | 2020-07-02 14:07 | US ---
EXAMINATION TYPE: US thyroid st tissue head/neck DATE OF EXAM: 07/02/2020 COMPARISON: NONE CLINICAL HISTORY: I88.9 non specified lymphadenitis. lymph nodes visualized right neck with largest = 2.0 x 0.7 x 1.2cm IMPRESSION: Mildly prominent lymph node. Otherwise unremarkable study.
== END | disposition home or self-care (01) ==
LOC: RADUSWWP 12:54
PROVIDERS: ATTEND Family Medicine
DX: I88.9 Nonspecific lymphadenitis, unspecified (principal)
CPT/HCPCS: 76536

== ENCOUNTER → 2020-07-25 | Outpatient (CLI) | payer MEDICARE ==
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
[2020-07-25 15:35] VITALS: BP 135/85; PULSE 68; RESP 18; TEMP 98
== END ==
LOC: WWCWWP 14:41
PROVIDERS: ATTEND Surgery
DX: N62 Hypertrophy of breast (principal); N44.8 Other noninflammatory disorders of the testis; I48.91 Unspecified atrial fibrillation; K21.9 Gastro-esophageal reflux disease without esophagitis; I10 Essential (primary) hypertension; S09.90XA Unspecified injury of head, initial encounter; N28.9 Disorder of kidney and ureter, unspecified; Z79.01 Long term (current) use of anticoagulants

== ENCOUNTER → 2020-09-02 | Outpatient (CLI) | payer MEDICARE ==
--- NOTE | 2020-09-02 16:04 | US ---
EXAMINATION TYPE: US scrotum with doppler. Grayscale and color Doppler Duplex imaging performed of t leopoldo scrotum. DATE OF EXAM: 09/02/2020 COMPARISON: NONE CLINICAL HISTORY: N50.9 RT TESTICULAR ENLARGEMENT. EXAM MEASUREMENTS: TESTICLES: Right Testicle: 4.3 x 2.4 x 3.4 cm Left Testicle: 4.7 x 2.4 x 3.1 cm EPIDIDYMIS HEAD: Right Epididymis: 0.9 x 0.9 cm Left Epididymis: 1.0 x 1.1 cm Doppler performed to assess for testicular vascularity; good bilateral color flow and waveforms are s een. There is no evidence of testicular torsion. Presence of hydroceles: 5.6 x 2.8 x 3.3 cm fluid collection around right testicle with floating debr is. Small amount of fluid around left testicle. Presence of varicoceles: none appreciated. Bilateral microlithiasis noted. IMPRESSION: 1. Bilateral microlithiasis is nonspecific. 2. Large right hydrocele with floating debris and small left hydrocele. 3. No evidence of orchitis, epididymitis, or testicular torsion.
== END | disposition home or self-care (01) ==
LOC: RADUSWWP 11:41
PROVIDERS: ATTEND Surgery
DX: N50.9 Disorder of male genital organs, unspecified (principal); N43.3 Hydrocele, unspecified
CPT/HCPCS: 76870; 93975

== ENCOUNTER → 2020-09-11 | Outpatient (CLI) | payer MEDICARE ==
[2020-09-11 10:56] VITALS: BP 154/91; PULSE 69; RESP 18; TEMP 98.1
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
== END ==
LOC: WWCWWP 10:43
PROVIDERS: ATTEND Surgery
DX: N62 Hypertrophy of breast (principal); N43.3 Hydrocele, unspecified; I48.91 Unspecified atrial fibrillation; K21.9 Gastro-esophageal reflux disease without esophagitis; I10 Essential (primary) hypertension; S09.90XA Unspecified injury of head, initial encounter; R94.4 Abnormal results of kidney function studies; Z79.01 Long term (current) use of anticoagulants; Z79.899 Other long term (current) drug therapy

== ENCOUNTER → 2020-09-22 | Outpatient (CLI) | payer MEDICARE ==
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
[2020-09-22 12:39] VITALS: BP 155/90; PULSE 85; RESP 18; TEMP 97.6
== END ==
LOC: PNWHC3 11:44
PROVIDERS: ATTEND Anesthesiology
DX: M48.061 Spinal stenosis, lumbar region without neurogenic claudication (principal); M51.36 Other intervertebral disc degeneration, lumbar region; K21.9 Gastro-esophageal reflux disease without esophagitis; I48.91 Unspecified atrial fibrillation; I50.9 Heart failure, unspecified; I11.0 Hypertensive heart disease with heart failure; E78.5 Hyperlipidemia, unspecified; Z79.899 Other long term (current) drug therapy; Z79.01 Long term (current) use of anticoagulants
CPT/HCPCS: 99211

== ENCOUNTER 2020-10-21 09:49 | Day surgery (SDC) | payer MEDICARE ==
[2020-10-17 15:52] VITALS: BMI 26.6
[~2020-10-21 09:49] MED LIST changes: -ATENOLOL 25 MG TAB PO STA; -LIDOCAINE 1% 20 ML VIAL (10MG/ML) FOR IV START INTRADERMA PRN; -MIDAZOLAM 2 MG/2 ML VIAL IV PRN; -PROPOFOL 10 MG/ML 20 ML VIAL IV ONE; -SODIUM CHLORIDE 0.9% 1,000 ML IV SCH; -SODIUM CHLORIDE 0.9% 500 ML IV ONE; -SPIRONOLACTONE 25 MG TAB PO STA
[2020-10-21 10:12] VITALS: TEMP 97.7
[2020-10-21] MEDS ORDERED: fentaNYL (PF) 50 MCG/ML 2 ML AMP ONE (10:16)
[2020-10-21] MEDS ORDERED: methylPREDNISolone ACETATE 40 MG/ML 1 ML VIAL ONE (10:16)
[2020-10-21] MEDS ORDERED: IOPAMIDOL M200 10 ML VIAL ONE (10:16)
[2020-10-21] MEDS ORDERED: MIDAZOLAM 2 MG/2 ML VIAL ONE (10:16)
--- NOTE | 2020-10-21 10:34 | P.PCN ---
Date of Procedure: 10/21/20 Procedure(s) Performed: PREOPERATIVE DIAGNOSIS: 1- Lumbar Degenerative Disc Diseases 2-Lumbar spinal stenosis. POSTOPERATIVE DIAGNOSIS: Same as preop diagnosis. PROCEDURE 1. Lumbar epidural steroid injection under fluoroscopic guidance at the L4-5 level. (Fluoroscopy imaging was available in radiology department) 2. Lumbar epidurogram. ANESTHESIA: Local with 1% lidocaine 3 ml and , moderate sedation with intravenous Versed 2 mg ,and fentanyle 100 Mcg EBL: Minimal PROCEDURE INDICATION: The patient with low back pain and radiculitis symptoms unresponsive to conservative treatment. Fluoroscopy was used to optimize visualization of the needle placement and to maximize safety. PROCEDURE DESCRIPTION / TECHNIQUE: The patient was seen and identified in the preoperative area. Risks, benefits, complications including but not limited to infections ,bleeding ,allergic reaction to the medications ,nerve damage and not complete pain releife , and alternatives were discussed with the patient. The patient agreed to proceed with the procedure and signed the consent. IV was started, and vital signs were stable. Patient was taken to the OR and time out was completed. The patient was placed in the prone position on procedure table and a pillow was placed under the abdomen to reduce lumbar lordosis. The lumbosacral area was prepped and draped in the usual sterile fashion.ere closely monitored during the procedure. Conscious sedation was used during the procedure to decrease patients anxiety. Vital signs was monitered during the entire procedure. Using anterior-posterior fluoroscopy, the L4-5 interlaminar space was identified and the skin over this site was marked and then infiltrated with 1% lidocaine subcutaneously. Subsequently, a 20-gauge Tuohy epidural needle was inserted and advanced toward the epidural space using the ``Loss of resistance technique and guided by AP and lateral fluoroscopy. The correct needle position in the epidural space was verified with the injection of 2 mL of the water soluble contrast dye Isovue 200 contrast and observing an excellent epidurogram with the epidural spread of the dye, after negative aspiration for blood and CSF and in the absence of paresthesias. Again after negative aspiration, a 6 ml mixture containing 80 mg of Depo-medrol , and 2 ml of preservative free Normal Saline, and 2 ml of preservative free lidocaine 1% solution was injected and a washout of epidurogram was seen. Needle was withdrawn intact, skin was cleansed, and bandages were applied. COMPLICATIONS: None DISPOSITION / PLANS: The patient was placed in a supine position and transferred to the recovery area in a stable condition for observation. There was no evidence of lower extremity motor or sensory deficit after the procedure. Patient was discharged from the recovery room after meeting discharge criteria. Home discharge instructions were given to the patient by the staff. The patient was reexamined prior to discharge. The patient will schedule a follow up in the clinic in 2-4 weeks. Last does Elequis was 4 days ago , patient will resume the Elequis 12 hours after the procedure.
[2020-10-21] MEDS ORDERED: IV FLUID CONTINUATION 1,000 ML IV ONE (10:38)
--- NOTE | 2020-10-21 10:55 | FL ---
EXAMINATION TYPE: FL guided pain mgmt statistic DATE OF EXAM: 10/21/2020 CLINICAL HISTORY: Low back pain. TECHNIQUE: Fluoroscopy. COMPARISON: None. FINDINGS: Fluoroscopic guidance was provided during pain relief procedure performed by Dr. Washburn . A total of 3 seconds of fluoroscopic time was utilized during the procedure and 1 spot images are acquired. Single image acquired shows needle localization with contrast injection at L5 level. IMPRESSION: As Above.
[2020-10-21 10:57] VITALS: BP 123/80; PULSE 72; RESP 20
== END 2020-10-21 11:09 | disposition home or self-care (01) ==
LOC: PNWHC3 09:49
PROVIDERS: ATTEND Specialist
DX: M48.061 Spinal stenosis, lumbar region without neurogenic claudication (principal); M51.36 Other intervertebral disc degeneration, lumbar region
CPT/HCPCS: 62323; J2250; J1030; J3010; Q9966; 99152

== ENCOUNTER 2020-11-18 07:02 | Day surgery (SDC) | payer MEDICARE ==
[2020-11-13 12:03] VITALS: BMI 26.6
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
[~2020-11-18 07:02] MED LIST changes: +DEXAMETHASONE SOD PHOSPHATE 4 MG/ML 1 ML VIAL IV ONE; +HEPARIN SODIUM,PORCINE/PF 5,000 UNIT/0.5 ML SYRINGE SQ PRN; +HYDROmorphone 0.5 MG/0.5 ML SYRINGE IVP PRN; -LACTATED RINGERS 1,000 ML IV SCH; +LIDOCAINE 1% (10MG/ML) FOR IV START INTRADERMA PRN; +MIDAZOLAM 2 MG/2 ML VIAL IV PRN; +ONDANSETRON 4 MG/2 ML VIAL IVP ONE; +Pre Op ABX Message 1 EACH MISC MISCELLANE ONE; +fentaNYL (PF) 50 MCG/ML 2 ML AMP IVP PRN
[2020-11-18] MEDS: LACTATED RINGERS 1,000 ML IV SCH ×2 (07:59→08:46)
[2020-11-18 08:08] LABS: Basophils % (A) 0 %; Eosinophils # (A) 0.1 k/uL (0-0.7); Eosinophils % (A) 1 %; HCT 38.7 % (39.0-53.0); HGB 13.1 gm/dL (13.0-17.5); Lymphocytes % (A) 10 %; MCH 35.3 pg (25.0-35.0); MCHC 33.8 g/dL (31.0-37.0); MCV 104.7 fL (80.0-100.0); Macrocytosis Slight; Mean Platelet Volume 8.3; Monocytes # (A) 0.7 k/uL (0-1.0); Monocytes % (A) 6 %; Neutrophils # (A) 8.5 k/uL (1.3-7.7); Neutrophils % (A) 81 %; Platelet Count 242 k/uL (150-450); RDW 12.9 % (11.5-15.5); WBC 10.5 k/uL (3.8-10.6)
[2020-11-18 08:21] LABS: Albumin 3.8 g/dL (3.5-5.0); Calcium 9.2 mg/dL (8.4-10.2); Potassium 3.4 mmol/L (3.5-5.1); Total Bilirubin 0.9 mg/dL (0.2-1.3); Total Protein 6.9 g/dL (6.3-8.2)
[2020-11-18] MEDS ORDERED: fentaNYL (PF) 50 MCG/ML 2 ML AMP ONE (08:45)
[2020-11-18] MEDS ORDERED: METOPROLOL TARTRATE 5 MG/5 ML VIAL IVP ONE (08:45)
[2020-11-18] MEDS ORDERED: PROPOFOL 10 MG/ML 20 ML VIAL IV ONE (08:45)
[2020-11-18] MEDS ORDERED: NEOSTIGMINE 1 MG/ML 10 ML VIAL ONE (08:45)
[2020-11-18] MEDS ORDERED: hydrALAZINE HCL 20 MG/ML 1 ML VIAL ONE (08:45)
[2020-11-18] MEDS ORDERED: ROCURONIUM 10 MG/ML (5 ML VIAL) IV ONE (08:45)
[2020-11-18] MEDS ORDERED: LIDOCAINE 1% INJ 10MG/ML (20 ML MDV) ONE (08:45)
[2020-11-18] MEDS ORDERED: ESMOLOL 100 MG/10 ML VIAL ONE (08:45)
[2020-11-18] MEDS ORDERED: GLYCOPYRROLATE 0.2 MG/ML 2 ML VIAL ONE (08:45)
[2020-11-18] MEDS ORDERED: SUCCINYLCHOLINE CHLORIDE 100 MG/5 ML SYR IV ONE (08:45)
[2020-11-18] MEDS ORDERED: MIDAZOLAM 2 MG/2 ML VIAL ONE (08:45)
[2020-11-18] MEDS ORDERED: SODIUM CHLORIDE 0.9% 100 ML with ceFAZolin 2,000 MG IV ONE ×2 (08:48)
[2020-11-18] MEDS ORDERED: LACTATED RINGERS 1,000 ML IV ONE (09:15)
--- NOTE | 2020-11-18 10:10 | P.OP ---
Date of Procedure: 11/18/20 Preoperative Diagnosis: Bilateral symptomatic gynecomastia Postoperative Diagnosis: Same Procedure(s) Performed: Bilateral resection of gynecomastia Anesthesia: CATALINO Surgeon: Keyla More Estimated Blood Loss (ml): 4 IV fluids (ml): 800 Pathology: other (Breast tissue) Condition: stable Disposition: same day Indications for Procedure: Symptomatic bilateral gynecomastia Operative Findings: Dense breast tissue Description of Procedure: The patient is a 70-year-old gentleman who presented with symptomatic bilateral gynecomastia. He wished dissection of the area of pain. The patient was taken to the operating room and following induction of anesthesia both breasts were prepped and draped in a sterile fashion. The right breast was approached initially. An inferior areolar incision with medial and lateral extensions was made. Superior and inferior flaps were developed. The area of gynecomastia was circumferentially removed. The tissue was removed from medial to lateral off the pectoralis muscle. Following this we assured that hemostasis was obtained. The wound was irrigated. Surgicel and pyriform was placed. The deep tissues were closed using a 3-0 Vicryl suture. This was followed by closure of the skin with a 4-0 Monocryl running nylon skin suture. The left breast was then approached. An inferior areolar incision with medial and lateral extensions was made. Superior and inferior flaps were developed. The area of gynecomastia was circumferentially removed. The tissue was removed from medial to lateral off the pectoralis muscle. Following this we assured th at hemostasis was obtained. The wound was irrigated. Surgicel and pyriform was placed. The deep tissues were closed using a 3-0 Vicryl suture. This was followed by closure of the skin with a 4-0 Monocryl running nylon skin suture. All instrument and sponge counts were correct at the end of the case. The patient tolerated the procedure in stable condition. The specimens were painted for orientation. The specimens were sent to pathology.
--- NOTE | 2020-11-18 10:11 | P.DS ---
Providers Attending physician: Keyla More Primary care physician: Nenita Ledezma Plan - Discharge Summary Discharge Rx Participant: No New Discharge Prescriptions: No Action Pravastatin Sodium [Pravachol] 20 mg PO HS Omeprazole [PriLOSEC] 40 mg PO AC-BRKFST Amiodarone [Cordarone] 200 mg PO BID tab Apixaban [Eliquis] 2.5 mg PO BID tablet Metoprolol Tartrate [Lopressor] 50 mg PO BID tab HYDROcodone/APAP 7.5-325MG [[place] 7.5-325] 1 tab PO BID PRN PRN Reason: Pain Furosemide [Lasix] 40 mg PO DAILY PRN PRN Reason: WEIGHT GAIN OF 5 POUNDS Allopurinol [Zyloprim] 100 mg PO DAILY traZODone HCL 100 mg PO HS ALPRAZolam [Xanax] 0.25 mg PO HS amLODIPine [Norvasc] 2.5 mg PO DAILY Propranolol HCl [Propranolol HCl ER] 160 mg PO HS Discharge Medication List Omeprazole [PriLOSEC] 40 mg PO AC-BRKFST 08/11/17 [History] Pravastatin Sodium [Pravachol] 20 mg PO HS 08/11/17 [History] Amiodarone [Cordarone] 200 mg PO BID tab 05/09/19 [Rx] Apixaban [Eliquis] 2.5 mg PO BID tablet 05/09/19 [Rx] Metoprolol Tartrate [Lopressor] 50 mg PO BID tab 05/09/19 [Rx] HYDROcodone/APAP 7.5-325MG [[place] 7.5-325] 1 tab PO BID PRN 12/21/19 [History] Furosemide [Lasix] 40 mg PO DAILY PRN 09/19/20 [History] Allopurinol [Zyloprim] 100 mg PO DAILY 09/22/20 [History] ALPRAZolam [Xanax] 0.25 mg PO HS 11/13/20 [History] Propranolol HCl [Propranolol HCl ER] 160 mg PO HS 11/13/20 [History] amLODIPine [Norvasc] 2.5 mg PO DAILY 11/13/20 [History] traZODone HCL 100 mg PO HS 11/13/20 [History] Follow up Appointment(s)/Referral(s): Keyla More MD [STAFF PHYSICIAN] - 11/28/20 4:00 pm Activity/Diet/Wound Care/Special Instructions: RESUME ELIQUIS TOMORROW PER DR SUBRAMANIAN. HAS HOME PAIN MEDS -DR SUBRAMANIAN AWARE. Patient may shower after 48 hours wear Lee wrap until seen by Dr. Boyle next week Discharge Disposition: HOME SELF-CARE
[2020-11-18 11:20] VITALS: TEMP 96.9
[2020-11-18] MEDS ORDERED: LABETALOL SYRINGE 5 MG/ML IVP ONE (11:31)
[2020-11-18 11:34] VITALS: RESP 16
[2020-11-18] MEDS ORDERED: HYDROcodone/APAP 7.5-325MG 1 EACH TAB ONE (12:05)
[2020-11-18] MEDS ORDERED: HYDROcodone/APAP 7.5-325MG 1 EACH TAB PO ONE (12:07)
[2020-11-18 12:11] VITALS: BP 144/89; PULSE 88
== END 2020-11-18 12:33 | disposition home or self-care (01) ==
LOC: OR 07:02
PROVIDERS: ATTEND Surgery
DX: N62 Hypertrophy of breast (principal); E78.5 Hyperlipidemia, unspecified; I48.20 Chronic atrial fibrillation, unspecified; Z79.01 Long term (current) use of anticoagulants; N18.9 Chronic kidney disease, unspecified; Z82.49 Family history of ischemic heart disease and other diseases of the circulatory system; Z79.899 Other long term (current) drug therapy
CPT/HCPCS: 80053; 85025; 19300; J2250; J0360; J1100; J2710; J2405; J0690; J2001; J3010; J0330; J2704; J1644; 88305

== ENCOUNTER → 2020-11-28 | Outpatient (CLI) | payer MEDICARE ==
[2020-11-28 08:43] VITALS: BP 153/95; PULSE 101; RESP 18; TEMP 98.6
--- NOTE | 2020-11-28 09:16 | P.PN ---
Progress Note - Text Progress Note Date: 11/28/20 Rodriguez is a 70-year-old white male status post bilateral resection of gynecomastia [id number]. Pathology revealed: Right breast: Gynecomastia with stromal fibrosis, mild chronic inflammation and focal mild usual ductal hyperplasia. Negative for in situ or invasive cancer. Left breast: Gynecomastia with stromal fibrosis, mild chronic inflammation and focal mild usual ductal hyperplasia. Negative for in situ or invasive carcinoma. The patient tolerated the procedure without difficulty. Physical exam: Incision bilateral clean and dry Seroma left breast Impression/Plan: Follow-up 6 months for examination Remove sutures Aspiration seroma left breast Aspiration of seroma: Area on the left breast was prepped using alcohol. A 20 mL syringe with an 18- gauge needle was inserted into the area of fluctuance. 25 mL of straw-colored fluid was removed with complete resolution of the seroma. The patient tolerated the procedure in stable condition. Informed consent was obtained prior to the procedure. Cc: Dr. Ledezma
== END ==
LOC: WWCWWP 08:25
PROVIDERS: ATTEND Surgery
DX: N64.89 Other specified disorders of breast (principal)

== ENCOUNTER → 2020-12-09 | Outpatient (CLI) | payer MEDICARE ==
[2020-12-09 15:22] LABS: Appearance,Urine Clear (Clear); Bilirubin,Urine Negative (Negative); Blood,Urine Small (Negative); Calcium Oxalate Crystals,Urine Occasional /hpf; Color,Urine Yellow; Glucose,Urine (UA) Negative (Negative); Ketones,Urine Negative (Negative); Leukocyte Esterase,Urine Negative (Negative); Mucus,Urine Few /hpf; Nitrite,Urine Negative (Negative); Protein,Urine 1+ (Negative); RBC,Urine 5 /hpf (0-5); Specific Gravity,Urine 1.031 (1.001-1.035); WBC,Urine 1 /hpf (0-5)
[2020-12-09 16:18] LABS: Creatinine,Urine Random 413.5 mg/dL; Protein/Creatinine Ratio,Urine 0.041
[2020-12-09 23:51] LABS: Basophils # (A) 0.06 X 10*3/uL (0.00-0.10); Basophils % (A) 0.7 %; Eosinophils # (A) 0 X 10*3/uL (0.04-0.35); Eosinophils % (A) 0 %; HCT 33.7 % (39.6-50.0); HGB 10.9 g/dL (13.0-17.0); Lymphocytes # (A) 1.13 X 10*3/uL (0.90-5.00); Lymphocytes % (A) 12.5 %; MCH 32.5 pg (27.0-32.0); MCHC 32.3 g/dL (32.0-37.0); MCV 100.6 fL (80.0-97.0); Mean Platelet Volume 11.5 fL (9.5-12.2); Monocytes % (A) 6.7 %; Neutrophils # (A) 7.17 X 10*3/uL (1.80-7.70); Neutrophils % (A) 79.5 %; Platelet Count 268 X 10*3/uL (140-440); RBC 3.35 X 10*6/uL (4.40-5.60); RDW 14.5 % (11.5-14.5); WBC 9.01 X 10*3/uL (4.50-10.00)
[2020-12-10 13:59] LABS: C-ANCA <1:20 Titer (<1:20)
[2020-12-10 15:27] LABS: % Iron Saturation 19.38 (15.00-50.00); African American GFR (CKD) 47.3 (60.0-200.0); Albumin 3.8 g/dL (3.8-4.9); Anion Gap 14.6 mmol/L (4.00-12.00); BUN/Creat Ratio 8.08 Ratio (12.00-20.00); Blood Urea Nitrogen 13.5 mg/dL (9.0-27.0); Calcium 8.8 mg/dL (8.7-10.3); Non-African American GFR(CKD) 40.8 (60.0-200.0); Potassium 3.8 mmol/L (3.5-5.5); Uric Acid 2.6 mg/dL (3.7-8.7)
[2020-12-10 16:37] LABS: Complement C3 95.5 mg/dL (80.0-207.0)
[2020-12-12 11:36] LABS: Free Kappa Lt Chain Qnt, Serum 4.42 mg/dL (0.33-1.94)
== END | disposition home or self-care (01) ==
LOC: LABWHC1 14:06
PROVIDERS: ATTEND Nurse Practitioner Family
DX: E55.9 Vitamin D deficiency, unspecified (principal); N25.81 Secondary hyperparathyroidism of renal origin; M10.9 Gout, unspecified; D64.9 Anemia, unspecified; N39.0 Urinary tract infection, site not specified
CPT/HCPCS: 36415; 80048; 81001; 82040; 82306; 82570; 82728; 83516; 83540; 83550; 83735; 83883; 83970; 84100; 84156; 84166; 84550; 85025; 86038; 86160; 86162; 86225; 86255; 86334

== ENCOUNTER → 2021-01-30 | Outpatient (CLI) | payer MEDICARE ==
[2021-01-30 13:51] LABS: Appearance,Urine Clear (Clear); Bilirubin,Urine Negative (Negative); Blood,Urine Small (Negative); Calcium Oxalate Crystals,Urine Few /hpf; Color,Urine Yellow; Glucose,Urine (UA) Negative (Negative); Ketones,Urine Negative (Negative); Leukocyte Esterase,Urine Negative (Negative); Mucus,Urine Rare /hpf; Nitrite,Urine Negative (Negative); PH, Urine 6.5 (5.0-8.0); Protein,Urine Trace (Negative); RBC,Urine 7 /hpf (0-5); Specific Gravity,Urine 1.028 (1.001-1.035); WBC,Urine <1 /hpf (0-5)
[2021-01-30 18:20] LABS: Basophils # (A) 0.07 X 10*3/uL (0.00-0.10); Basophils % (A) 0.8 %; Eosinophils # (A) 0 X 10*3/uL (0.04-0.35); Eosinophils % (A) 0 %; HCT 35.1 % (39.6-50.0); HGB 11.5 g/dL (13.0-17.0); Lymphocytes # (A) 1.18 X 10*3/uL (0.90-5.00); Lymphocytes % (A) 13.3 %; MCHC 32.8 g/dL (32.0-37.0); MCV 100.9 fL (80.0-97.0); Mean Platelet Volume 11.2 fL (9.5-12.2); Monocytes # (A) 0.77 X 10*3/uL (0.20-1.00); Monocytes % (A) 8.7 %; Neutrophils % (A) 76.7 %; Platelet Count 272 X 10*3/uL (140-440); RBC 3.48 X 10*6/uL (4.40-5.60); RDW 13.9 % (11.5-14.5); WBC 8.86 X 10*3/uL (4.50-10.00)
[2021-01-30 20:45] LABS: % Iron Saturation 33.1 (15.00-50.00); African American GFR (CKD) 40.5 (60.0-200.0); Albumin 3.9 g/dL (3.8-4.9); Anion Gap 12.7 mmol/L (10.00-18.00); Blood Urea Nitrogen 20.9 mg/dL (9.0-27.0); Calcium 9.1 mg/dL (8.7-10.3); Carbon Dioxide 28.3 mmol/L (20.0-27.5); Magnesium 2.1 mg/dL (1.5-2.4); Non-African American GFR(CKD) 34.9 (60.0-200.0); Phosphorus 3.1 mg/dL (2.4-5.1); Potassium 3.6 mmol/L (3.5-5.5); Uric Acid 4.5 mg/dL (3.7-8.7)
== END | disposition home or self-care (01) ==
LOC: LABWHC1 11:24
PROVIDERS: ATTEND Nurse Practitioner Acute Care
DX: I12.9 Hypertensive chronic kidney disease with stage 1 through stage 4 chronic kidney disease, or unspecified chronic kidney disease (principal); N18.32 Chronic kidney disease, stage 3b; N25.81 Secondary hyperparathyroidism of renal origin; E55.9 Vitamin D deficiency, unspecified; M10.9 Gout, unspecified; N39.0 Urinary tract infection, site not specified; D64.9 Anemia, unspecified
CPT/HCPCS: 36415; 80048; 81001; 82040; 82306; 82728; 83540; 83550; 83735; 83970; 84100; 84550; 85025

== ENCOUNTER → 2021-05-01 | Outpatient (CLI) | payer MEDICARE ==
[2021-05-01 16:58] LABS: Appearance,Urine Cloudy (Clear); Bacteria,Urine Rare /hpf; Bilirubin,Urine Negative (Negative); Blood,Urine Small (Negative); Color,Urine Yellow; Glucose,Urine (UA) Negative (Negative); Ketones,Urine Negative (Negative); Leukocyte Esterase,Urine Negative (Negative); Nitrite,Urine Negative (Negative); Protein,Urine Trace (Negative); RBC,Urine 11 /hpf (0-5); Specific Gravity,Urine 1.017 (1.001-1.035)
[2021-05-01 19:12] LABS: Basophils # (A) 0.07 X 10*3/uL (0.00-0.10); Basophils % (A) 0.7 %; Eosinophils # (A) 0 X 10*3/uL (0.04-0.35); Eosinophils % (A) 0 %; HCT 39.2 % (39.6-50.0); HGB 12.9 g/dL (13.0-17.0); Immature Grans, Automated 0.3 %; Lymphocytes # (A) 1.76 X 10*3/uL (0.90-5.00); Lymphocytes % (A) 18.5 %; MCH 32.7 pg (27.0-32.0); MCHC 32.9 g/dL (32.0-37.0); MCV 99.2 fL (80.0-97.0); Mean Platelet Volume 11.1 fL (9.5-12.2); Monocytes % (A) 7.4 %; NRBC Per 100 WBC 0 /100 WBCS (0.0-0.0); Neutrophils # (A) 6.93 X 10*3/uL (1.80-7.70); Neutrophils % (A) 73.1 %; Platelet Count 281 X 10*3/uL (140-440); RBC 3.95 X 10*6/uL (4.40-5.60); RDW 14.4 % (11.5-14.5); WBC 9.49 X 10*3/uL (4.50-10.00)
[2021-05-01 19:15] LABS: African American GFR (CKD) 46.3 (60.0-200.0); Anion Gap 12.5 mmol/L (10.00-18.00); BUN/Creat Ratio 10.41 Ratio (12.00-20.00); Blood Urea Nitrogen 17.7 mg/dL (9.0-27.0); Calcium 9.1 mg/dL (8.7-10.3); Carbon Dioxide 28.5 mmol/L (20.0-27.5); Magnesium 2.3 mg/dL (1.5-2.4); Phosphorus 3.1 mg/dL (2.4-5.1); Potassium 3.3 mmol/L (3.5-5.5); Uric Acid 3.7 mg/dL (3.7-8.7)
== END | disposition home or self-care (01) ==
LOC: LABWHC1 14:37
PROVIDERS: ATTEND Nurse Practitioner Acute Care
DX: D64.9 Anemia, unspecified (principal); N39.0 Urinary tract infection, site not specified; N18.32 Chronic kidney disease, stage 3b; M10.9 Gout, unspecified
CPT/HCPCS: 36415; 80048; 81001; 82306; 83735; 83970; 84100; 84550; 85025

== ENCOUNTER → 2021-05-28 | Outpatient (CLI) | payer MEDICARE ==
[2021-05-28 13:23] VITALS: BP 154/84; PULSE 90; RESP 18; TEMP 97.7
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
== END ==
LOC: WWCWWP 12:24
PROVIDERS: ATTEND Surgery
DX: Z09 Encounter for follow-up examination after completed treatment for conditions other than malignant neoplasm (principal); Z87.898 Personal history of other specified conditions; Z98.890 Other specified postprocedural states; I48.91 Unspecified atrial fibrillation; Z79.01 Long term (current) use of anticoagulants; I10 Essential (primary) hypertension

== ENCOUNTER → 2023-02-11 | Outpatient (CLI) | payer MEDICARE ==
--- NOTE | 2023-02-11 12:10 | XR ---
EXAMINATION TYPE: XR chest 2V DATE OF EXAM: 02/11/2023 11:23 AM CLINICAL INDICATION:Male, 72 years old with history of R07.9; COMPARISON: 05/07/2019. TECHNIQUE: XR chest 2V Frontal and lateral views of the chest. FINDINGS: Lungs/Pleura: Prominent interstitial lung markings are seen scattered throughout the lungs with diane ening of the diaphragm and increased lucency of the lung apices. No evidence of focal consolidation, pneumothorax or pleural effusion. Pulmonary vascularity: Unremarkable. Heart/mediastinum: Cardiomediastinal silhouette is unremarkable. Musculoskeletal: No acute osseous pathology. Other findings: None IMPRESSION: 1. No acute cardiopulmonary disease process. 2. COPD changes. 3. Left lower lobe 20 mm nodule steadily increasing in size dating back to 04/30/2019 and likely aysha gn. Findings suggest indolent process possibly granulomatous disease.
== END | disposition home or self-care (01) ==
LOC: RADXRMAIN 11:02
PROVIDERS: ATTEND Family Medicine
DX: J44.9 Chronic obstructive pulmonary disease, unspecified (principal); R91.1 Solitary pulmonary nodule
CPT/HCPCS: 71046

== ENCOUNTER 2024-01-21 13:12 | Inpatient (IN) | payer MEDICARE ==
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
[2024-01-21] MEDS: KETOROLAC 15 MG/ML 1 ML VIAL IVP STA (13:47)
--- NOTE | 2024-01-21 13:49 | XR ---
EXAMINATION TYPE: XR chest 2V DATE OF EXAM: 01/21/2024 1:36 PM COMPARISON: 02/11/2023 CLINICAL INDICATION: Male, 73 years old with history of difficulty breathing, TECHNIQUE: XR chest 2V view(s) obtained. FINDINGS: The heart size is normal. The pulmonary vasculature is normal. Patchy infiltrates in the left mid and lower lung field. Some mild infiltrates at the right lung base . Correlate for atelectasis and pneumonia. Consider atypical pneumonia.. IMPRESSION: 1. Patchy left and right lower lobe infiltrates, worse on the left. Correlate for pneumonia. Follow-u p recommended. [facility], , 01/21/2024 1:47 PM
[2024-01-21 14:11] LABS: ALT 135 U/L (4-49); African American GFR (CKD) 43 (>60 ml/min/1.73 sqM); Albumin 2.9 g/dL (3.5-5.0); Anion Gap 7 mmol/L; Blood Urea Nitrogen 51 mg/dL (9-20); Calcium 7.9 mg/dL (8.4-10.2); Carbon Dioxide 26 mmol/L (22-30); Chloride 102 mmol/L (98-107); Glucose 119 mg/dL (74-99); Non-African American GFR(CKD) 37 (>60 ml/min/1.73 sqM); Sodium 135 mmol/L (137-145); Total Bilirubin 3.5 mg/dL (0.2-1.3); Total Protein 6.2 g/dL (6.3-8.2)
[2024-01-21 14:12] LABS: Basophils # (A) 0.1 k/uL (0-0.2); Basophils % (A) 0 %; Eosinophils # (A) 0.1 k/uL (0-0.7); Eosinophils % (A) 0 %; HCT 37.4 % (39.0-53.0); HGB 12.2 gm/dL (13.0-17.5); Lymphocytes # (A) 0.6 k/uL (1.0-4.8); Lymphocytes % (A) 3 %; MCH 32.6 pg (25.0-35.0); MCHC 32.5 g/dL (31.0-37.0); MCV 100.3 fL (80.0-100.0); Macrocytosis Slight; Mean Platelet Volume 11.4; Monocytes # (A) 1.6 k/uL (0-1.0); Monocytes % (A) 8 %; Neutrophils # (A) 18.3 k/uL (1.3-7.7); Neutrophils % (A) 88 %; Platelet Count 310 k/uL (150-450); RBC 3.73 m/uL (4.30-5.90); RDW 14.2 % (11.5-15.5); WBC 20.8 k/uL (3.8-10.6)
[2024-01-21 14:16] LABS: INR 1.4 (<1.2); Partial Thromboplastin Time 30.2 sec (22.0-30.0)
[2024-01-21 14:17] LABS: AST 188 U/L (17-59); Magnesium 1.6 mg/dL (1.6-2.3); Potassium 3.4 mmol/L (3.5-5.1)
[2024-01-21 14:18] LABS: Alkaline Phosphatase 110 U/L (38-126)
[2024-01-21] MEDS: SODIUM CHLORIDE 0.9% 1,900 ML IV ONE (14:33)
[2024-01-21] MEDS ORDERED: PNEUMONIA PROTOCOL UTILIZED 1 EACH MISC PO PRN (14:33)
[2024-01-21] MEDS: SODIUM CHLORIDE 0.9% 1,000 ML IV SCH (14:37)
[2024-01-21] MEDS: SODIUM CHLORIDE 0.9% 1,000 ML IV ONE (14:38)
[2024-01-21] MEDS: cefTRIAXone IN SWFI 1,000 MG/10 ML SYRINGE IVP STA ×2 (15:08→15:09)
[2024-01-21] MEDS: AZITHROMYCIN 500 MG in SODIUM CHLORIDE 0.9% 250 ML IVPB STA (15:20)
[2024-01-21] MEDS: ALBUTEROL NEBULIZED 2.5 MG/3 ML INHALATION SCH (16:33)
[2024-01-21] MEDS: HYDROcodone/APAP 7.5-325MG 1 EACH TAB PO PRN (19:07)
[2024-01-22] MEDS ORDERED: Potassium Replacement Protocol 1 EACH MISC MISCELLANE PRN (01:05)
[2024-01-22] MEDS ORDERED: Magnesium Replacement Protocol 1 EACH MISC MISCELLANE PRN (01:07)
[2024-01-22] MEDS: MAGNESIUM SULFATE-D5W PMX 1 GM in DEXTROSE/WATER 1 100ML.BAG IVPB SCH (02:21)
[2024-01-22] MEDS: POTASSIUM CHLORIDE ER 20 MEQ TAB.ER PO SCH (02:21)
[2024-01-22] MEDS: PANTOPRAZOLE 40 MG TABLET PO SCH (06:32)
[2024-01-22 07:12] LABS: African American GFR (CKD) 72 (>60 ml/min/1.73 sqM); Anion Gap 6 mmol/L; Blood Urea Nitrogen 40 mg/dL (9-20); Calcium 7.8 mg/dL (8.4-10.2); Carbon Dioxide 27 mmol/L (22-30); Chloride 101 mmol/L (98-107); Glucose 85 mg/dL (74-99); Non-African American GFR(CKD) 63 (>60 ml/min/1.73 sqM); Potassium 3.4 mmol/L (3.5-5.1); Sodium 134 mmol/L (137-145)
[2024-01-22] MEDS: AMIODARONE 200 MG TAB PO SCH (08:00)
[2024-01-22] MEDS: AZITHROMYCIN 500 MG TAB PO SCH (08:00)
[2024-01-22] MEDS: APIXABAN 2.5 MG TABLET PO SCH (08:00)
[2024-01-22] MEDS: allopurinoL 100 MG TAB PO SCH (08:01)
--- NOTE | 2024-01-22 08:03 | XR ---
EXAMINATION TYPE: XR chest 1V portable DATE OF EXAM: 01/22/2024 6:33 AM COMPARISON: 01/21/2024 CLINICAL INDICATION: Male, 73 years old with history of pneumonia, TECHNIQUE: XR chest 1V portable view(s) obtained. FINDINGS: The heart size is upper limits of normal. The pulmonary vasculature is prominent. Scattered diffuse increased lung markings are present. There is more focal periphery of the left midl madelin lung base. Findings are worsened. IMPRESSION: 1. Clinical correlation recommended for congestive heart failure and pulmonary edema. Some underlying pneumonia left base be considered. [facility], , 01/22/2024 8:00 AM
[2024-01-22] MEDS ORDERED: APIXABAN 2.5 MG TABLET PO SCH (09:00)
--- NOTE | 2024-01-22 09:53 | P.PN ---
Subjective Progress Note Date: 01/22/24 Rodriguez Jackson is a 73-year-old male patient of Dr. Christie who presented with concerns of chest pain and low oxygenation. Patient has a past medical history of atrial fibrillation, COPD, CHF and asthma. EKG completed showing atrial fibrillation with RVR heart rate 110. Chest x-ray completed showing patchy left and right lower lobe infiltrates worse on the left correlation for pneumonia lab work revealing white blood cell count 20.8, creatinine 1.77 and bun 51 lactic acid also initially elevated at 4.0. Patient was started on azithromycin and Rocephin. Pulmonary services consulted. Current vital signs temp 98.2, heart rate 88, respiratory rate 18, blood pressure 108/67 with a pulse ox of 92% on 4 L Objective - Vital Signs Vital signs: Vital Signs Temp 98.2 F 01/22/24 07:55 Pulse 90 01/22/24 08:14 Resp 18 01/22/24 07:55 BP 108/67 01/22/24 07:55 Pulse Ox 92 L 01/22/24 07:55 FiO2 Intake & Output 01/21/24 01/22/24 01/22/24 18:59 06:59 18:59 Intake Total 2530 Output Total 300 Balance 2230 Weight 63.503 kg 76.5 kg Intake: Intake, IV Titration 910 Amount Sodium Chloride 0.9% 1, 910 000 ml @ 130 mls/hr IV . [id number] [facility] Rx#:[id number] Oral 1620 Output: Urine 300 Other: Voiding Method Urinal - Exam Refer to HPI otherwise unremarkable - Labs CBC & Chem 7: 01/21/24 13:26 01/22/24 05:51 Labs: Abnormal Lab Results - Last 24 Hours (Table) 01/21/24 01/21/24 01/21/24 Range/Units 13:26 13:26 13:26 WBC 20.8 H (3.8-10.6) k/uL RBC 3.73 L (4.30-5.90) m/uL Hgb 12.2 L (13.0-17.5) gm/dL Hct 37.4 L (39.0-53.0) % MCV 100.3 H (80.0-100.0) fL Neutrophils # 18.3 H (1.3-7.7) k/uL Lymphocytes # 0.6 L (1.0-4.8) k/uL Monocytes # 1.6 H (0-1.0) k/uL PT 15.0 H (10.0-12.5) sec INR 1.4 H (<1.2) APTT 30.2 H (22.0-30.0) sec Sodium 135 L (137-145) mmol/L Potassium 3.4 L (3.5-5.1) mmol/L BUN 51 H (9-20) mg/dL Creatinine 1.77 H (0.66-1.25) mg/dL Glucose 119 H (74-99) mg/dL Plasma Lactic Acid Russ (0.7-2.0) mmol/L Calcium 7.9 L (8.4-10.2) mg/dL Total Bilirubin 3.5 H (0.2-1.3) mg/dL AST 188 H (17-59) U/L ALT 135 H (4-49) U/L Total Protein 6.2 L (6.3-8.2) g/dL Albumin 2.9 L (3.5-5.0) g/dL 01/21/24 01/21/24 01/21/24 Range/Units 13:26 17:10 20:26 WBC (3.8-10.6) k/uL RBC (4.30-5.90) m/uL Hgb (13.0-17.5) gm/dL Hct (39.0-53.0) % MCV (80.0-100.0) fL Neutrophils # (1.3-7.7) k/uL Lymphocytes # (1.0-4.8) k/uL Monocytes # (0-1.0) k/uL PT (10.0-12.5) sec INR (<1.2) APTT (22.0-30.0) sec Sodium (137-145) mmol/L Potassium (3.5-5.1) mmol/L BUN (9-20) mg/dL Creatinine (0.66-1.25) mg/dL Glucose (74-99) mg/dL Plasma Lactic Acid Russ 4.0 H* 3.0 H* 2.5 H* (0.7-2.0) mmol/L Calcium (8.4-10.2) mg/dL Total Bilirubin (0.2-1.3) mg/dL AST (17-59) U/L ALT (4-49) U/L Total Protein (6.3-8.2) g/dL Albumin (3.5-5.0) g/dL 01/22/24 Range/Units 05:51 WBC (3.8-10.6) k/uL RBC (4.30-5.90) m/uL Hgb (13.0-17.5) gm/dL Hct (39.0-53.0) % MCV (80.0-100.0) fL Neutrophils # (1.3-7.7) k/uL Lymphocytes # (1.0-4.8) k/uL Monocytes # (0-1.0) k/uL PT (10.0-12.5) sec INR (<1.2) APTT (22.0-30.0) sec Sodium 134 L (137-145) mmol/L Potassium 3.4 L (3.5-5.1) mmol/L BUN 40 H (9-20) mg/dL Creatinine (0.66-1.25) mg/dL Glucose (74-99) mg/dL Plasma Lactic Acid Russ (0.7-2.0) mmol/L Calcium 7.8 L (8.4-10.2) mg/dL Total Bilirubin (0.2-1.3) mg/dL AST (17-59) U/L ALT (4-49) U/L Total Protein (6.3-8.2) g/dL Albumin (3.5-5.0) g/dL Assessment and Plan Assessment: 1. Pneumonia with sepsis as evident by elevated lactic acid and leukocytosis 2. Acute kidney injury secondary to sepsis and dehydration 3. History of atrial fibrillation maintained on Eliquis 4. History of CHF 5. Elevated liver enzymes we will hold statin at this time and recheck DVT prophylaxis Eliquis. GI prophylaxis Protonix Pulmonary services consulted Blood and sputum cultures ordered Repeat labs ordered Time with Patient: Greater than 30 (Greater than 60% of the total time spent in counseling and coordination of care)
[2024-01-22 11:46] LABS: Basophils # (A) 0.2 k/uL (0-0.2); Basophils % (A) 1 %; Eosinophils # (A) 0.1 k/uL (0-0.7); Eosinophils % (A) 0 %; HCT 38.1 % (39.0-53.0); HGB 12.1 gm/dL (13.0-17.5); Lymphocytes # (A) 0.5 k/uL (1.0-4.8); Lymphocytes % (A) 2 %; MCHC 31.8 g/dL (31.0-37.0); MCV 100.5 fL (80.0-100.0); Macrocytosis Slight; Monocytes # (A) 0.8 k/uL (0-1.0); Monocytes % (A) 4 %; Neutrophils # (A) 20.4 k/uL (1.3-7.7); Neutrophils % (A) 93 %; Platelet Count 339 k/uL (150-450); RBC 3.79 m/uL (4.30-5.90); RDW 14.3 % (11.5-15.5)
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
[2024-01-22 13:13] LABS: T4, Free (Free Thyroxine) 4.83 ng/dL (0.78-2.19)
[2024-01-22] MEDS: traZODone HCL 50 MG TAB PO SCH (20:12)
[2024-01-22] MEDS ORDERED: PRAVASTATIN SODIUM 20 MG TAB PO SCH (21:00)
[2024-01-23 07:10] LABS: Basophils # (A) 0.1 k/uL (0-0.2); Basophils % (A) 0 %; Eosinophils % (A) 0 %; HCT 39.4 % (39.0-53.0); HGB 12.8 gm/dL (13.0-17.5); Hypochromasia Slight; Lymphocytes # (A) 0.7 k/uL (1.0-4.8); Lymphocytes % (A) 3 %; MCH 33.2 pg (25.0-35.0); MCHC 32.5 g/dL (31.0-37.0); MCV 101.9 fL (80.0-100.0); Macrocytosis Slight; Mean Platelet Volume 10.2; Monocytes # (A) 0.8 k/uL (0-1.0); Monocytes % (A) 3 %; Neutrophils # (A) 24.9 k/uL (1.3-7.7); Neutrophils % (A) 93 %; Platelet Count 281 k/uL (150-450); RBC 3.86 m/uL (4.30-5.90); RDW 13.6 % (11.5-15.5); WBC 26.7 k/uL (3.8-10.6)
[2024-01-23 07:23] LABS: ALT 129 U/L (4-49); AST 220 U/L (17-59); African American GFR (CKD) 82 (>60 ml/min/1.73 sqM); Albumin 2.3 g/dL (3.5-5.0); Alkaline Phosphatase 152 U/L (38-126); Anion Gap 6 mmol/L; Blood Urea Nitrogen 31 mg/dL (9-20); Calcium 7.5 mg/dL (8.4-10.2); Carbon Dioxide 19 mmol/L (22-30); Chloride 106 mmol/L (98-107); Glucose 81 mg/dL (74-99); Magnesium 1.8 mg/dL (1.6-2.3); Non-African American GFR(CKD) 71 (>60 ml/min/1.73 sqM); Potassium 3.5 mmol/L (3.5-5.1); Sodium 131 mmol/L (137-145); Total Bilirubin 3.8 mg/dL (0.2-1.3); Total Protein 5.3 g/dL (6.3-8.2)
[2024-01-23] MEDS: DILTIAZEM DRIP BOLUS FROM BAG 1 MG SOLN IV ONE (09:43)
[2024-01-23] MEDS: SODIUM CHLORIDE 0.9% 1,000 ML IV SCH (09:44)
[2024-01-23] MEDS: DILTIAZEM 125 MG in SODIUM CHLORIDE 0.9% 100 ML IV SCH (09:45)
[2024-01-23] MEDS ORDERED: VANCOMYCIN IV PER PHARMACY 1 EACH MISC MISCELLANE PRN (10:49)
[2024-01-23] MEDS: guaiFENesin-Coden 100-10MG/5ML 10 ML CUP PO PRN (11:02)
[2024-01-23] MEDS: methylPREDNISolone SOD SUCCI 125 MG/2 ML VIAL IV SCH (11:02)
[2024-01-23] MEDS: IPRATROPIUM-ALBUTEROL 3 ML NEB INHALATION SCH (11:17)
[2024-01-23] MEDS: VANCOMYCIN 1,250 MG in SODIUM CHLORIDE 0.9% 250 ML IVPB SCH (11:54)
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
[2024-01-23] MEDS: IPRATROPIUM-ALBUTEROL 3 ML NEB INHALATION PRN (14:19)
--- NOTE | 2024-01-23 16:38 | CA ---
Transthoracic Echo Report Name: Rodriguez Jackson Age: 73 Gender: M : 1950 Exam Date: 01/23/2024 15:38 Exam Location: [facility] Ht (in): 67 Wt (lb): 156 Ordering Physician: Anastasiia Vigil Attending/Referring Phys: [id number], Yaritza Buyer Janessa Bergeron RDCS Procedure CPT: Indications: LVF Cardiac Hx: Technical Quality: Fair Contrast 1: Total Dose (mL): Contrast 2: Total Dose (mL): MEASUREMENTS (Male / Female) Normal Values 2D ECHO LV Diastolic Diameter PLAX 4.0 cm 4.2 - 5.9 / 3.9 - 5.3 cm LV Systolic Diameter PLAX 2.5 cm IVS Diastolic Thickness 0.8 cm 0.6 - 1.0 / 0.6 - 0.9 cm LVPW Diastolic Thickness 0.9 cm 0.6 - 1.0 / 0.6 - 0.9 cm LV Relative Wall Thickness 0.4 LVOT Diameter 2.3 cm LA Volume 69.8 cm??? 18 - 58 / 22 - 52 cm??? LA Volume Index 38.0 cm???/m??? 16 - 28 cm???/m??? DOPPLER AV Peak Velocity 123.8 cm/s AV Peak Gradient 6.1 mmHg AV Mean Velocity 87.8 cm/s AV Mean Gradient 3.4 mmHg AV Velocity Time Integral 18.0 cm LVOT Peak Velocity 104.8 cm/s LVOT Peak Gradient 4.4 mmHg LVOT Velocity Time Integral 14.9 cm LVOT Stroke Volume 60.8 cm??? LVOT Stroke Volume Index 33.4 ml/m??? LVOT Cardiac Index 3212.3 cm???/min???m??? AV Area Cont Eq vti 3.4 cm??? AV Area Cont Eq pk 3.5 cm??? TR Peak Velocity 257.1 cm/s TR Peak Gradient 26.4 mmHg Right Atrial Pressure 10.0 mmHg Pulmonary Artery Systolic Pressu 36.4 mmHg Right Ventricular Systolic Press 36.4 mmHg PV Peak Velocity 93.0 cm/s PV Peak Gradient 3.5 mmHg FINDINGS Left Ventricle Left ventricular ejection fraction is estimated at 65-70 %. Left ventricular cavity size normal. Left ventricular wall thickness normal. No obvious regional wall motion abnormalities. Right Ventricle Right ventricle not well visualized with reduced function. Mild pulmonary hypertension. Right Atrium Mild right atrial dilatation. Left Atrium Moderately increased left atrial volume. Mildly increased left atrial area. Mitral Valve Structurally normal mitral valve. No mitral stenosis, regurgitation or prolapse. Aortic Valve Trileaflet aortic valve. No aortic valve stenosis or regurgitation. Tricuspid Valve Structurally normal tricuspid valve. No tricuspid stenosis. Trace tricuspid regurgitation. Pulmonic Valve Pulmonic valve not well visualized. Pericardium No pericardial effusion. Aorta Aortic annulus normal. CONCLUSIONS Technically difficult study with poor acoustic windows Hyperdynamic LV. LVEF 65 to 70% No obvious regional wall motion abnormality Mild biatrial dilatation No obvious valve dysfunction appreciated No Pericardial effusion Previewed by: Dr Ajith Gonzalez (Electronically Signed) Final Date: 23 January 2024 16:37
[2024-01-23 16:41] LABS: Glucose,Whole Blood 165 mg/dL (70-110)
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
--- NOTE | 2024-01-23 17:15 | P.PN ---
Subjective Progress Note Date: 01/23/24 Rodriguez Jackson, is a 73-year-old male who presented to [facility] emergency room with a chief complaint of worsening shortness of breath, patient stated that he fell 2 weeks ago, he was complaining of left-sided rib pain especially when he takes a deep breath. He was also complaining of cough otherwise he denies any complaints. He was evaluated in the emergency room vital examination on presentation revealed a temperature of 98.8 pulse 118 respiration 18 blood pressure 130/78 pulse ox 97% on 10 L nonrebreather mask Laboratory data revealed a white blood count of 20.8 hemoglobin 12.2 platelet count 310 sodium 134 potassium 3.4 chloride 102 BUN 51 creatinine 1.77 AST 188 ALT 135 troponin 0.012 Testing in the emergency room revealed EKG done in the emergency room revealed atrial fibrillation with rapid ventricular response, chest x-ray revealed patchy left and right lower lobe infiltrates worse on the left. Patient was admitted to medical floor for further evaluation and treatment, pulmonary consultation and cardiology consultation were requested. On 01/23/2024 patient was seen and examined on the medical floor he is alert and oriented x 3 in no apparent distress he reports mild improvement in his shortness of breath, he is still complaining of cough and complaining of chest wall pain otherwise he denies any complaints there is no fever or chills no headache or dizziness no nausea or vomiting no abdominal pain no diarrhea no blood in the stools no burning with urination no frequency or urgency and no hematuria. His temperature is 98.8 pulse 108 respiration 26 blood pressure 138/92 pulse ox 91% on 11 L high flow cannula, white blood count is 26.7 hemoglobin 12.8 platelet count 281 BUN 31 creatinine 1.04 Objective - Vital Signs Vital signs: Vital Signs Temp 98.5 F 01/23/24 08:48 Pulse 109 H 01/23/24 10:00 Resp 24 01/23/24 09:54 BP 115/73 01/23/24 10:00 Pulse Ox 90 L 01/23/24 09:54 FiO2 Intake & Output 01/22/24 01/23/24 01/23/24 18:59 06:59 18:59 Intake Total 300 Output Total 375 350 Balance -375 -350 300 Weight 71 kg Intake: Oral 300 Output: Urine 375 350 Other: Voiding Method Urinal Urinal Urinal # Voids 1 1 # Bowel Movements 1 0 - Exam In general patient is alert and oriented x 3 in no distress HEENT head normocephalic and atraumatic Neck is supple no JVD no goiter no lymphadenopathy no carotid bruit Chest examination reveals a scattered crackles bilaterally no wheezing Cardiac exam reveals irregular heart sounds S1 and S2 with tachycardia no gallops no murmurs Abdomen is soft nontender no organomegaly with normal bowel sounds Extremity exam reveals no edema no cyanosis or clubbing Neurological examination reveals no gross focal deficits - Labs CBC & Chem 7: 01/23/24 06:13 01/23/24 06:13 Labs: Abnormal Lab Results - Last 24 Hours (Table) 01/22/24 01/22/24 01/22/24 Range/Units 10:52 10:52 10:52 WBC 22.0 H (3.8-10.6) k/uL RBC 3.79 L (4.30-5.90) m/uL Hgb 12.1 L (13.0-17.5) gm/dL Hct 38.1 L (39.0-53.0) % MCV 100.5 H (80.0-100.0) fL Neutrophils # 20.4 H (1.3-7.7) k/uL Lymphocytes # 0.5 L (1.0-4.8) k/uL Sodium (137-145) mmol/L Carbon Dioxide (22-30) mmol/L BUN (9-20) mg/dL Calcium (8.4-10.2) mg/dL Total Bilirubin (0.2-1.3) mg/dL AST (17-59) U/L ALT (4-49) U/L Alkaline Phosphatase (38-126) U/L Total Protein (6.3-8.2) g/dL Albumin (3.5-5.0) g/dL Procalcitonin 1.42 H (0.02-0.50) ng/mL TSH 0.058 L (0.465-4.680) mIU/L Free T4 4.83 H (0.78-2.19) ng/dL Cortisol 39.1 H (3.1-22.4) UG/DL 01/23/24 01/23/24 Range/Units 06:13 06:13 WBC 26.7 H (3.8-10.6) k/uL RBC 3.86 L (4.30-5.90) m/uL Hgb 12.8 L (13.0-17.5) gm/dL Hct (39.0-53.0) % MCV 101.9 H (80.0-100.0) fL Neutrophils # 24.9 H (1.3-7.7) k/uL Lymphocytes # 0.7 L (1.0-4.8) k/uL Sodium 131 L (137-145) mmol/L Carbon Dioxide 19 L (22-30) mmol/L BUN 31 H (9-20) mg/dL Calcium 7.5 L (8.4-10.2) mg/dL Total Bilirubin 3.8 H (0.2-1.3) mg/dL AST 220 H (17-59) U/L ALT 129 H (4-49) U/L Alkaline Phosphatase 152 H (38-126) U/L Total Protein 5.3 L (6.3-8.2) g/dL Albumin 2.3 L (3.5-5.0) g/dL Procalcitonin (0.02-0.50) ng/mL TSH (0.465-4.680) mIU/L Free T4 (0.78-2.19) ng/dL Cortisol (3.1-22.4) UG/DL Microbiology - Last 24 Hours (Table) 01/21/24 14:38 Blood Culture Gram Stain - Preliminary Blood Blood Culture - Preliminary Presumptive Staph aureus Molecular ID Assessment and Plan Assessment: 1. Pneumonia with sepsis as evident by elevated lactic acid and leukocytosis 2. Acute kidney injury secondary to sepsis and dehydration, kidney function im proved significantly since admission 3. History of atrial fibrillation maintained on Eliquis, with episodes of rapid ventricular response during this presentation 4. History of CHF 5. Acute hypoxic respiratory failure requiring high flow oxygen supplements pulmonary are following 6. Elevated liver enzymes we will hold statin at this time and recheck 7. Positive blood culture for Staphylococcus aureus, consultation for infectious disease was initiated DVT prophylaxis Eliquis. GI prophylaxis Protonix Pulmonary services consulted, cardiology consultation requested echocardiogram ordered Blood and sputum cultures ordered Repeat labs ordered
[2024-01-23 19:47] LABS: Glucose,Whole Blood 175 mg/dL (70-110)
[2024-01-23] MEDS: SYMBICORT 160-4.5 MCG INHALER INHALATION SCH (20:06)
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
[2024-01-23] MEDS: ALPRAZolam 0.25 MG TAB PO PRN (21:22)
[2024-01-24 05:54] LABS: Glucose,Whole Blood 172 mg/dL (70-110)
[2024-01-24 06:15] LABS: HCT 37.5 % (39.0-53.0); HGB 12.2 gm/dL (13.0-17.5); Hypochromasia Slight; MCH 33.1 pg (25.0-35.0); MCHC 32.5 g/dL (31.0-37.0); MCV 101.6 fL (80.0-100.0); Macrocytosis Slight; Mean Platelet Volume 10.9; Platelet Count 263 k/uL (150-450); RBC 3.69 m/uL (4.30-5.90); WBC 35.7 k/uL (3.8-10.6)
[2024-01-24 06:30] LABS: ALT 118 U/L (4-49); AST 196 U/L (17-59); African American GFR (CKD) 70 (>60 ml/min/1.73 sqM); Albumin 2.2 g/dL (3.5-5.0); Alkaline Phosphatase 161 U/L (38-126); Anion Gap 6 mmol/L; Blood Urea Nitrogen 40 mg/dL (9-20); Calcium 7.7 mg/dL (8.4-10.2); Carbon Dioxide 24 mmol/L (22-30); Chloride 105 mmol/L (98-107); Glucose 149 mg/dL (74-99); Non-African American GFR(CKD) 61 (>60 ml/min/1.73 sqM); Potassium 3.6 mmol/L (3.5-5.1); Sodium 135 mmol/L (137-145); Total Bilirubin 3.4 mg/dL (0.2-1.3); Total Protein 5.2 g/dL (6.3-8.2)
[2024-01-24 08:42] LABS: Lymphocytes # (M) 0.71 k/uL (1.0-4.8); Monocytes # (M) 0.36 k/uL (0-1.0); Neutrophils # (M) 34.99 k/uL (1.3-7.7); Neutrophils % (M) 98 %; Nucleated Red Blood Cells 0 /100 WBC (0-0); Total Cells Counted 200
[2024-01-24 08:43] LABS: Target Cells Present
--- NOTE | 2024-01-24 09:26 | P.PN ---
Subjective Progress Note Date: 01/24/24 Rodriguez Jackson, is a 73-year-old male who presented to [facility] emergency room with a chief complaint of worsening shortness of breath, patient stated that he fell 2 weeks ago, he was complaining of left-sided rib pain especially when he takes a deep breath. He was also complaining of cough otherwise he denies any complaints. He was evaluated in the emergency room vital examination on presentation revealed a temperature of 98.8 pulse 118 respiration 18 blood pressure 130/78 pulse ox 97% on 10 L nonrebreather mask Laboratory data revealed a white blood count of 20.8 hemoglobin 12.2 platelet count 310 sodium 134 potassium 3.4 chloride 102 BUN 51 creatinine 1.77 AST 188 ALT 135 troponin 0.012 Testing in the emergency room revealed EKG done in the emergency room revealed atrial fibrillation with rapid ventricular response, chest x-ray revealed patchy left and right lower lobe infiltrates worse on the left. Patient was admitted to medical floor for further evaluation and treatment, pulmonary consultation and cardiology consultation were requested. On 01/23/2024 patient was seen and examined on the medical floor he is alert and oriented x 3 in no apparent distress he reports mild improvement in his shortness of breath, he is still complaining of cough and complaining of chest wall pain otherwise he denies any complaints there is no fever or chills no headache or dizziness no nausea or vomiting no abdominal pain no diarrhea no blood in the stools no burning with urination no frequency or urgency and no hematuria. His temperature is 98.8 pulse 108 respiration 26 blood pressure 138/92 pulse ox 91% on 11 L high flow cannula, white blood count is 26.7 hemoglobin 12.8 platelet count 281 BUN 31 creatinine 1.04 On 01/24/2024 patient is alert and oriented x 3. Patient still having some significant shortness of breath currently on 11 L nasal cannula. Cardiology, pu lmonary and infectious disease services are following. Patient remains on Cardizem drip. Patient remains on IV steroids and IV cefazolin. White blood cell 35.7, creatinine 1.18 bun 40. Current vital signs temp 97.8, heart 76, respiratory rate 26, blood pressure 112/73 with a pulse ox of 91% on 11 L Objective - Vital Signs Vital signs: Vital Signs Temp 97.8 F 01/24/24 03:11 Pulse 76 01/24/24 03:11 Resp 26 H 01/24/24 03:11 BP 112/73 01/24/24 03:11 Pulse Ox 91 L 01/24/24 03:11 FiO2 Intake & Output 01/23/24 01/24/24 01/24/24 18:59 06:59 18:59 Intake Total 614 102.833 Output Total 0 Balance 614 102.833 Weight 71 kg 71 kg Intake: Intake, IV Titration 78 102.833 Amount Diltiazem 125 mg In 78 102.833 Sodium Chloride 0.9% 100 ml @ 10 MG/HR 10 mls/hr IV .[id number] [facility] Rx#: [id number] Oral 536 Output: Urine 0 Other: Voiding Method Urinal Urinal Diaper Diaper # Voids 1 3 # Bowel Movements 0 - Exam In general patient is alert and oriented x 3 in no distress HEENT head normocephalic and atraumatic Neck is supple no JVD no goiter no lymphadenopathy no carotid bruit Chest examination reveals a scattered crackles bilaterally no wheezing Cardiac exam reveals irregular heart sounds S1 and S2 with tachycardia no gallops no murmurs Abdomen is soft nontender no organomegaly with normal bowel sounds Extremity exam reveals no edema no cyanosis or clubbing Neurological examination reveals no gross focal deficits - Labs CBC & Chem 7: 01/24/24 05:25 01/24/24 05:25 Labs: Abnormal Lab Results - Last 24 Hours (Table) 01/23/24 01/23/24 01/24/24 Range/Units 16:40 19:45 05:25 WBC 35.7 H (3.8-10.6) k/uL RBC 3.69 L (4.30-5.90) m/uL Hgb 12.2 L (13.0-17.5) gm/dL Hct 37.5 L (39.0-53.0) % MCV 101.6 H (80.0-100.0) fL Neutrophils # (Manual) 34.99 H (1.3-7.7) k/uL Lymphocytes # (Manual) 0.71 L (1.0-4.8) k/uL Sodium (137-145) mmol/L BUN (9-20) mg/dL Glucose (74-99) mg/dL POC Glucose (mg/dL) 165 H 175 H (70-110) mg/dL Calcium (8.4-10.2) mg/dL Total Bilirubin (0.2-1.3) mg/dL AST (17-59) U/L ALT (4-49) U/L Alkaline Phosphatase (38-126) U/L Total Protein (6.3-8.2) g/dL Albumin (3.5-5.0) g/dL 01/24/24 01/24/24 Range/Units 05:25 05:52 WBC (3.8-10.6) k/uL RBC (4.30-5.90) m/uL Hgb (13.0-17.5) gm/dL Hct (39.0-53.0) % MCV (80.0-100.0) fL Neutrophils # (Manual) (1.3-7.7) k/uL Lymphocytes # (Manual) (1.0-4.8) k/uL Sodium 135 L (137-145) mmol/L BUN 40 H (9-20) mg/dL Glucose 149 H (74-99) mg/dL POC Glucose (mg/dL) 172 H (70-110) mg/dL Calcium 7.7 L (8.4-10.2) mg/dL Total Bilirubin 3.4 H (0.2-1.3) mg/dL AST 196 H (17-59) U/L ALT 118 H (4-49) U/L Alkaline Phosphatase 161 H (38-126) U/L Total Protein 5.2 L (6.3-8.2) g/dL Albumin 2.2 L (3.5-5.0) g/dL Microbiology - Last 24 Hours (Table) 01/21/24 14:38 Blood Culture Gram Stain - Preliminary Blood Blood Culture - Preliminary Presumptive Staph aureus Molecular ID Assessment and Plan Assessment: 1. Pneumonia with sepsis as evident by elevated lactic acid and leukocytosis 2. Acute kidney injury secondary to sepsis and dehydration, kidney function improved significantly since admission 3. History of atrial fibrillation maintained on Eliquis, with episodes of rapid ventricular response during this presentation 4. History of CHF 5. Acute hypoxic respiratory failure requiring high flow oxygen supplements pulmonary are following 6. Elevated liver enzymes we will hold statin at this time and recheck 7. Positive blood culture for Staphylococcus aureus, consultation for infectious disease was initiated DVT prophylaxis Eliquis. GI prophylaxis Protonix Pulmonary services consulted, infectious disease cardiology consultation requested echocardiogram ordered Blood and sputum cultures ordered Repeat labs ordered
[2024-01-24 11:23] LABS: Glucose,Whole Blood 184 mg/dL (70-110)
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
--- NOTE | 2024-01-24 11:40 | XR ---
EXAMINATION TYPE: XR chest 1V portable DATE OF EXAM: 01/24/2024 CLINICAL HISTORY: Difficulty breathing progress study. TECHNIQUE: Single AP portable upright view of the chest is obtained. COMPARISON: Chest x-ray from one day earlier FINDINGS: Progression of coarse infiltrates throughout both lung muniz compatible with pneumonia. S mall pleural effusions noted. Cardiomediastinal silhouette is stable. IMPRESSION: Progression of coarse infiltrates throughout both lung muniz compatible with pneumonia. [facility], , 01/24/2024 11:38 AM
[2024-01-24] MEDS: DILTIAZEM ORAL 60 MG TAB PO SCH (12:11)
--- NOTE | 2024-01-24 13:47 | P.PN ---
Subjective Progress Note Date: 01/24/24 Principal diagnosis: Reason for follow-up is left-sided pneumonia and MSSA bacteremia Patient is a 73-year-old with a past medical history significant for atrial fibrillation heart failure , close head injury patient presenting to the hospital for evaluation of increasing shortness of breath left lower chest pain, patient has been diagnosed with left-sided pneumonia and did have a positive blood culture with MSSA prompted this consultation. On today's evaluation that is 01/24/2024, the patient continues to be afebrile, the patient is on 11 L high flow nasal cannula oxygen however mention breathing comfortably, the Pt left-sided chest pain coughing slightly decreased in intensity, the patient denies having any abdominal pain no vomiting or any diarrhea has been reported by the nursing staff. Patient white count is up to 35.7, creatinine is 1.18 Objective - Vital Signs Vital signs: Vital Signs Temp 97.4 F L 01/24/24 08:00 Pulse 95 01/24/24 12:00 Resp 18 01/24/24 12:00 BP 96/68 01/24/24 12:00 Pulse Ox 90 L 01/24/24 12:00 FiO2 Intake & Output 01/23/24 01/24/24 01/24/24 18:59 06:59 18:59 Intake Total 614 102.833 Output Total 0 300 Balance 614 102.833 -300 Weight 71 kg 71 kg Intake: Intake, IV Titration 78 102.833 Amount Diltiazem 125 mg In 78 102.833 Sodium Chloride 0.9% 100 ml @ 10 MG/HR 10 mls/hr IV .[id number] [facility] Rx#: [id number] Oral 536 Output: Urine 0 300 Other: Voiding Method Urinal Urinal Urinal Diaper Diaper Diaper # Voids 1 3 # Bowel Movements 0 - Exam GENERAL DESCRIPTION: An elderly male lying in bed in no distress RESPIRATORY SYSTEM: Unlabored breathing , decreased breath sounds at left base HEART: S1 S2 regular rate and rhythm , ABDOMEN: Soft , no tenderness EXTREMITIES: No edema feet - Labs CBC & Chem 7: 01/24/24 05:25 01/24/24 05:25 Labs: Abnormal Lab Results - Last 24 Hours (Table) 01/23/24 01/23/24 01/24/24 Range/Units 16:40 19:45 05:25 WBC 35.7 H (3.8-10.6) k/uL RBC 3.69 L (4.30-5.90) m/uL Hgb 12.2 L (13.0-17.5) gm/dL Hct 37.5 L (39.0-53.0) % MCV 101.6 H (80.0-100.0) fL Neutrophils # (Manual) 34.99 H (1.3-7.7) k/uL Lymphocytes # (Manual) 0.71 L (1.0-4.8) k/uL Sodium (137-145) mmol/L BUN (9-20) mg/dL Glucose (74-99) mg/dL POC Glucose (mg/dL) 165 H 175 H (70-110) mg/dL Calcium (8.4-10.2) mg/dL Total Bilirubin (0.2-1.3) mg/dL AST (17-59) U/L ALT (4-49) U/L Alkaline Phosphatase (38-126) U/L Total Protein (6.3-8.2) g/dL Albumin (3.5-5.0) g/dL 01/24/24 01/24/24 01/24/24 Range/Units 05:25 05:52 11:22 WBC (3.8-10.6) k/uL RBC (4.30-5.90) m/uL Hgb (13.0-17.5) gm/dL Hct (39.0-53.0) % MCV (80.0-100.0) fL Neutrophils # (Manual) (1.3-7.7) k/uL Lymphocytes # (Manual) (1.0-4.8) k/uL Sodium 135 L (137-145) mmol/L BUN 40 H (9-20) mg/dL Glucose 149 H (74-99) mg/dL POC Glucose (mg/dL) 172 H 184 H (70-110) mg/dL Calcium 7.7 L (8.4-10.2) mg/dL Total Bilirubin 3.4 H (0.2-1.3) mg/dL AST 196 H (17-59) U/L ALT 118 H (4-49) U/L Alkaline Phosphatase 161 H (38-126) U/L Total Protein 5.2 L (6.3-8.2) g/dL Albumin 2.2 L (3.5-5.0) g/dL Microbiology - Last 24 Hours (Table) 01/21/24 14:38 Blood Culture Gram Stain - Final Blood Blood Culture - Final Staphylococcus aureus Molecular ID Assessment and Plan (1) Bacteremia due to methicillin susceptible Staphylococcus aureus (MSSA) Current Visit: Yes Status: Acute Code(s): R78.81 - BACTEREMIA; B95.61 - METHICILLIN SUSCEP STAPH INFCT CAUSING DIS CLASSD [id number] SNOMED Code(s): 595406757 (2) Pneumonia Current Visit: Yes Status: Acute Code(s): J18.9 - PNEUMONIA, UNSPECIFIED ORGANISM SNOMED Code(s): 776894067 (3) Sepsis Current Visit: Yes Status: Acute Code(s): A41.9 - SEPSIS, UNSPECIFIED ORGANISM SNOMED Code(s): 59130496 Plan: 1patient presented to hospital with sepsis in this patient who did have leukocytosis tachycardia meeting criteria for SIRS source is left lower lobe pneumonia 2-patient with MSSA bacteremia source likely pneumonia 3-blood cultures has been repeated document clearance 4-patient to continue with cefazolin 2 g every 8 hours and try to obtain a sputum Dictation was produced using [employer] dictation software. please excuse any grammatical, word or spelling errors. Time with Patient: Less than 30
--- NOTE | 2024-01-24 14:17 | P.PN ---
Subjective Progress Note Date: 01/24/24 Consult reason: atrial fibrillation History of present illness: This is a 73-year-old male patient of Dr. Gonzalez with past medical history of persistent atrial fibrillation, heart failure with preserved EF, essential hypertension, chronic kidney disease, bilateral lower extremity lymphedema. We have been asked to evaluate the patient for A-fib with RVR. Patient presented to the hospital on 01/20 with complaints of shortness of breath congestion. Romi gillis has been treated for acute hypoxic respiratory failure, left lower lobe pneumonia and possible sepsis, acute kidney injury. Patient's heart rate has been varied but more consistently in the 1 teens. He is currently on O2 at 11 L nasal cannula with pulse ox of 90%, blood pressure 124/75. Patient gives history that he has had a cough ever since he had a fall and hurt his ribs a week ago. He states he lost his balance. He complains of shortness of breath, and coughing constantly. He states he has some chest pain because of his coughing. He is not on home oxygen therapy. He denies any smoking and no alcohol use. He states he has not been eating and drinking very much lately and only eats 1-2 meals per day. He does have history of cardioversion that was unsuccessful. -EKG: Atrial fibrillation in 110 bpm -Chest x-ray: Patchy left and right lower lobe infiltrates worse on the left. #2 clinically correlate for heart failure and pulmonary edema. Some underlying pneumonia left base. -Laboratory studies: WBC 26.7, hemoglobin 12.8. Sodium 131, potassium 3.5, BUN 31 and creatinine 1.04. Troponin negative x 2. proBNP 2370. Liver function tests are elevated. Magnesium 1.8. TSH 0.058 with free T4 abnormal at 4.83. Lactic acid initially 4 now 1.9. -Home cardiac medications: Amiodarone 200 mg twice daily, Eliquis 2.5 mg twice daily, pravastatin 20 mg at bedtime. -Lexiscan Cardiolite stress test performed in the office on 10/20/2020 reveals a negative Lexiscan stress test. Normal perfusion study. EF 65%. -Event monitor 10/08/2020 with baseline atrial flutter with variable conduction and heart rate of 80.1 bpm was only critical event. -Echocardiogram performed in the office 04/16/2019 revealed normal LV size and function, mild concentric hypertrophy. Aortic valve is calcified. Mild mitral regurgitation. Mitral valve calcified. Moderate tricuspid regurgitation. 01/24/24 Patient is seen and examined. He continues to have significant cough. He remains in atrial fibrillation, rate is controlled. He has been on IV Cardizem which was started yesterday. Blood pressure 111/74, heart rate 81, pulse ox 91% on 11 L high flow nasal cannula. Repeat blood work reveals WBC 35, hemoglobin 12.2, creatinine 1.18. Echocardiogram reveals EF 65 to 70%, hyperdynamic LV. Mild biatrial dilatation. No obvious valve dysfunction. No pericardial effusion. Physical examination: Gen: This is a 73-year-old male appears to be in no acute distress VS: reviewed HEENT: Head is atraumatic, normocephalic. Pupils equal, round. Sclerae is anicteric. NECK: Supple. No JVD. LUNGS: Scattered rhonchi. No intercostal retractions. HEART: Irregular rate and rhythm. No murmur. ABDOMEN: Soft No tenderness. EXTREMITIES: No pedal edema. No calf tenderness. NEUROLOGICAL: Patient is awake, alert and oriented x3. Assessment: Persistent atrial fibrillation with RVR, currently rate controlled Acute hypoxic respiratory failure Left lower lobe pneumonia Acute kidney injury Lactic acidosis Hypokalemia Elevated liver function test Heart failure with preserved EF Hypertension Lower extremity lymphedema Plan: Continue Eliquis 2.5 mg twice daily Discontinue Cardizem drip and start patient on oral Cardizem 60 mg 3 times daily Discontinue amiodarone as this has been unsuccessful in converting patient to sinus rhythm Hold statin due to elevated liver function test Further recommendations to follow based upon clinical course Nurse practitioner note has been reviewed, I agree with documented findings and plan of care. Patient was seen and examined. Objective - Vital Signs Vital signs: Vital Signs Temp 97.4 F L 01/24/24 08:00 Pulse 84 01/24/24 11:47 Resp 24 01/24/24 08:00 BP 111/74 01/24/24 08:00 Pulse Ox 91 L 01/24/24 09:45 FiO2 Intake & Output 01/23/24 01/24/24 01/24/24 18:59 06:59 18:59 Intake Total 614 102.833 Output Total 0 300 Balance 614 102.833 -300 Weight 71 kg 71 kg Intake: Intake, IV Titration 78 102.833 Amount Diltiazem 125 mg In 78 102.833 Sodium Chloride 0.9% 100 ml @ 10 MG/HR 10 mls/hr IV .[id number] [facility] Rx#: [id number] Oral 536 Output: Urine 0 300 Other: Voiding Method Urinal Urinal Urinal Diaper Diaper Diaper # Voids 1 3 # Bowel Movements 0 - Labs CBC & Chem 7: 01/24/24 05:25 01/24/24 05:25 Labs: Abnormal Lab Results - Last 24 Hours (Table) 01/23/24 01/23/24 01/24/24 Range/Units 16:40 19:45 05:25 WBC 35.7 H (3.8-10.6) k/uL RBC 3.69 L (4.30-5.90) m/uL Hgb 12.2 L (13.0-17.5) gm/dL Hct 37.5 L (39.0-53.0) % MCV 101.6 H (80.0-100.0) fL Neutrophils # (Manual) 34.99 H (1.3-7.7) k/uL Lymphocytes # (Manual) 0.71 L (1.0-4.8) k/uL Sodium (137-145) mmol/L BUN (9-20) mg/dL Glucose (74-99) mg/dL POC Glucose (mg/dL) 165 H 175 H (70-110) mg/dL Calcium (8.4-10.2) mg/dL Total Bilirubin (0.2-1.3) mg/dL AST (17-59) U/L ALT (4-49) U/L Alkaline Phosphatase (38-126) U/L Total Protein (6.3-8.2) g/dL Albumin (3.5-5.0) g/dL 01/24/24 01/24/24 01/24/24 Range/Units 05:25 05:52 11:22 WBC (3.8-10.6) k/uL RBC (4.30-5.90) m/uL Hgb (13.0-17.5) gm/dL Hct (39.0-53.0) % MCV (80.0-100.0) fL Neutrophils # (Manual) (1.3-7.7) k/uL Lymphocytes # (Manual) (1.0-4.8) k/uL Sodium 135 L (137-145) mmol/L BUN 40 H (9-20) mg/dL Glucose 149 H (74-99) mg/dL POC Glucose (mg/dL) 172 H 184 H (70-110) mg/dL Calcium 7.7 L (8.4-10.2) mg/dL Total Bilirubin 3.4 H (0.2-1.3) mg/dL AST 196 H (17-59) U/L ALT 118 H (4-49) U/L Alkaline Phosphatase 161 H (38-126) U/L Total Protein 5.2 L (6.3-8.2) g/dL Albumin 2.2 L (3.5-5.0) g/dL Microbiology - Last 24 Hours (Table) 01/21/24 14:38 Blood Culture Gram Stain - Final Blood Blood Culture - Final Staphylococcus aureus Molecular ID
[2024-01-24 16:35] LABS: Glucose,Whole Blood 170 mg/dL (70-110)
[2024-01-24 20:05] LABS: Glucose,Whole Blood 143 mg/dL (70-110)
[2024-01-25 06:07] LABS: Glucose,Whole Blood 172 mg/dL (70-110)
[2024-01-25 06:53] LABS: Basophils # (A) 0.2 k/uL (0-0.2); Basophils % (A) 0 %; Eosinophils % (A) 0 %; HCT 38.9 % (39.0-53.0); HGB 12.4 gm/dL (13.0-17.5); Hypochromasia Slight; Lymphocytes # (A) 0.6 k/uL (1.0-4.8); Lymphocytes % (A) 1 %; MCH 32.4 pg (25.0-35.0); MCHC 31.8 g/dL (31.0-37.0); MCV 101.9 fL (80.0-100.0); Macrocytosis Slight; Monocytes # (A) 0.9 k/uL (0-1.0); Monocytes % (A) 2 %; Neutrophils # (A) 42.2 k/uL (1.3-7.7); Neutrophils % (A) 95 %; Platelet Count 214 k/uL (150-450); RBC 3.82 m/uL (4.30-5.90); RDW 13.9 % (11.5-15.5); WBC 44.3 k/uL (3.8-10.6)
[2024-01-25 07:14] LABS: ALT 88 U/L (4-49); AST 194 U/L (17-59); African American GFR (CKD) 69 (>60 ml/min/1.73 sqM); Albumin 2.2 g/dL (3.5-5.0); Alkaline Phosphatase 165 U/L (38-126); Anion Gap 7 mmol/L; Blood Urea Nitrogen 48 mg/dL (9-20); Calcium 7.7 mg/dL (8.4-10.2); Carbon Dioxide 23 mmol/L (22-30); Chloride 107 mmol/L (98-107); Glucose 144 mg/dL (74-99); Non-African American GFR(CKD) 60 (>60 ml/min/1.73 sqM); Potassium 3.6 mmol/L (3.5-5.1); Sodium 137 mmol/L (137-145); Total Bilirubin 2.7 mg/dL (0.2-1.3); Total Protein 5.2 g/dL (6.3-8.2)
[2024-01-25 11:26] LABS: Glucose,Whole Blood 159 mg/dL (70-110)
--- NOTE | 2024-01-25 11:42 | P.PN ---
Subjective Progress Note Date: 01/25/24 Consult reason: atrial fibrillation History of present illness: This is a 73-year-old male patient of Dr. Gonzalez with past medical history of persistent atrial fibrillation, heart failure with preserved EF, essential hypertension, chronic kidney disease, bilateral lower extremity lymphedema. We have been asked to evaluate the patient for A-fib with RVR. Patient presented to the hospital on 01/20 with complaints of shortness of breath congestion. Rmoi gillis has been treated for acute hypoxic respiratory failure, left lower lobe pneumonia and possible sepsis, acute kidney injury. Patient's heart rate has been varied but more consistently in the 1 teens. He is currently on O2 at 11 L nasal cannula with pulse ox of 90%, blood pressure 124/75. Patient gives history that he has had a cough ever since he had a fall and hurt his ribs a week ago. He states he lost his balance. He complains of shortness of breath, and coughing constantly. He states he has some chest pain because of his coughing. He is not on home oxygen therapy. He denies any smoking and no alcohol use. He states he has not been eating and drinking very much lately and only eats 1-2 meals per day. He does have history of cardioversion that was unsuccessful. -EKG: Atrial fibrillation in 110 bpm -Chest x-ray: Patchy left and right lower lobe infiltrates worse on the left. #2 clinically correlate for heart failure and pulmonary edema. Some underlying pneumonia left base. -Laboratory studies: WBC 26.7, hemoglobin 12.8. Sodium 131, potassium 3.5, BUN 31 and creatinine 1.04. Troponin negative x 2. proBNP 2370. Liver function tests are elevated. Magnesium 1.8. TSH 0.058 with free T4 abnormal at 4.83. Lactic acid initially 4 now 1.9. -Home cardiac medications: Amiodarone 200 mg twice daily, Eliquis 2.5 mg twice daily, pravastatin 20 mg at bedtime. -Lexiscan Cardiolite stress test performed in the office on 10/20/2020 reveals a negative Lexiscan stress test. Normal perfusion study. EF 65%. -Event monitor 10/08/2020 with baseline atrial flutter with variable conduction and heart rate of 80.1 bpm was only critical event. -Echocardiogram performed in the office 04/16/2019 revealed normal LV size and function, mild concentric hypertrophy. Aortic valve is calcified. Mild mitral regurgitation. Mitral valve calcified. Moderate tricuspid regurgitation. 01/24/24 Patient is seen and examined. He continues to have significant cough. He remains in atrial fibrillation, rate is controlled. He has been on IV Cardizem which was started yesterday. Blood pressure 111/74, heart rate 81, pulse ox 91% on 11 L high flow nasal cannula. Repeat blood work reveals WBC 35, hemoglobin 12.2, creatinine 1.18. Echocardiogram reveals EF 65 to 70%, hyperdynamic LV. Mild biatrial dilatation. No obvious valve dysfunction. No pericardial effusion. 01/25/24 Patient is seen and examined. He continues to have significant cough. He remains in atrial fibrillation, rate is controlled. Yesterday, we transitioned to oral cardizem. BP 119/83, PO 97% on 10L n/c. Bun 48, creatinine 1.2, K 3.6. Physical examination: Gen: This is a 73-year-old male appears to be in no acute distress VS: reviewed HEENT: Head is atraumatic, normocephalic. Pupils equal, round. Sclerae is anicteric. NECK: Supple. No JVD. LUNGS: Scattered rhonchi. No intercostal retractions. HEART: Irregular rate and rhythm. No murmur. ABDOMEN: Soft No tenderness. EXTREMITIES: No pedal edema. No calf tenderness. NEUROLOGICAL: Patient is awake, alert and oriented x3. Assessment: Persistent atrial fibrillation with RVR, currently rate controlled Acute hypoxic respiratory failure Left lower lobe pneumonia Acute kidney injury Lactic acidosis Hypokalemia Elevated liver function test Heart failure with preserved EF Hypertension Lower extremity lymphedema Plan: Continue Eliquis and increase to 5 mg twice daily as renal function is now improved Continue patient on oral Cardizem 60 mg 3 times daily Discontinue amiodarone as this has been unsuccessful in converting patient to sinus rhythm Hold statin due to elevated liver function test Cardiology will sign off this case and follow on an as-needed basis. Please reconsult for any new concerns. Patient may follow-up in the office in one to [address] Gonzalez. Nurse practitioner note has been reviewed, I agree with documented findings and plan of care. Patient was seen and examined. Objective - Vital Signs Vital signs: Vital Signs Temp 96.4 F L 01/25/24 08:00 Pulse 77 01/25/24 09:33 Resp 18 01/25/24 09:33 BP 119/83 01/25/24 08:00 Pulse Ox 99 01/25/24 09:26 FiO2 Intake & Output 01/24/24 01/25/24 01/25/24 18:59 06:59 18:59 Intake Total 118 0 Output Total 300 300 Balance -182 -300 0 Weight 68.6 kg Intake: Oral 118 0 Output: Urine 300 300 Other: Voiding Method Urinal Urinal Urinal Diaper Diaper Diaper - Labs CBC & Chem 7: 01/25/24 06:10 01/25/24 06:10 Labs: Abnormal Lab Results - Last 24 Hours (Table) 01/24/24 01/24/24 01/25/24 Range/Units 16:33 20:04 06:06 WBC (3.8-10.6) k/uL RBC (4.30-5.90) m/uL Hgb (13.0-17.5) gm/dL Hct (39.0-53.0) % MCV (80.0-100.0) fL Neutrophils # (1.3-7.7) k/uL Lymphocytes # (1.0-4.8) k/uL BUN (9-20) mg/dL Glucose (74-99) mg/dL POC Glucose (mg/dL) 170 H 143 H 172 H (70-110) mg/dL Calcium (8.4-10.2) mg/dL Total Bilirubin (0.2-1.3) mg/dL AST (17-59) U/L ALT (4-49) U/L Alkaline Phosphatase (38-126) U/L Total Protein (6.3-8.2) g/dL Albumin (3.5-5.0) g/dL 01/25/24 01/25/24 01/25/24 Range/Units 06:10 06:10 11:23 WBC 44.3 H (3.8-10.6) k/uL RBC 3.82 L (4.30-5.90) m/uL Hgb 12.4 L (13.0-17.5) gm/dL Hct 38.9 L (39.0-53.0) % MCV 101.9 H (80.0-100.0) fL Neutrophils # 42.2 H (1.3-7.7) k/uL Lymphocytes # 0.6 L (1.0-4.8) k/uL BUN 48 H (9-20) mg/dL Glucose 144 H (74-99) mg/dL POC Glucose (mg/dL) 159 H (70-110) mg/dL Calcium 7.7 L (8.4-10.2) mg/dL Total Bilirubin 2.7 H (0.2-1.3) mg/dL AST 194 H (17-59) U/L ALT 88 H (4-49) U/L Alkaline Phosphatase 165 H (38-126) U/L Total Protein 5.2 L (6.3-8.2) g/dL Albumin 2.2 L (3.5-5.0) g/dL Microbiology - Last 24 Hours (Table) 01/21/24 14:38 Blood Culture Gram Stain - Final Blood Blood Culture - Final Staphylococcus aureus Molecular ID
--- NOTE | 2024-01-25 11:47 | P.PN ---
Subjective Progress Note Date: 01/25/24 Rodriguez Jackson, is a 73-year-old male who presented to [facility] emergency room with a chief complaint of worsening shortness of breath, patient stated that he fell 2 weeks ago, he was complaining of left-sided rib pain especially when he takes a deep breath. He was also complaining of cough otherwise he denies any complaints. He was evaluated in the emergency room vital examination on presentation revealed a temperature of 98.8 pulse 118 respiration 18 blood pressure 130/78 pulse ox 97% on 10 L nonrebreather mask Laboratory data revealed a white blood count of 20.8 hemoglobin 12.2 platelet count 310 sodium 134 potassium 3.4 chloride 102 BUN 51 creatinine 1.77 AST 188 ALT 135 troponin 0.012 Testing in the emergency room revealed EKG done in the emergency room revealed atrial fibrillation with rapid ventricular response, chest x-ray revealed patchy left and right lower lobe infiltrates worse on the left. Patient was admitted to medical floor for further evaluation and treatment, pulmonary consultation and cardiology consultation were requested. On 01/23/2024 patient was seen and examined on the medical floor he is alert and oriented x 3 in no apparent distress he reports mild improvement in his shortness of breath, he is still complaining of cough and complaining of chest wall pain otherwise he denies any complaints there is no fever or chills no headache or dizziness no nausea or vomiting no abdominal pain no diarrhea no blood in the stools no burning with urination no frequency or urgency and no hematuria. His temperature is 98.8 pulse 108 respiration 26 blood pressure 138/92 pulse ox 91% on 11 L high flow cannula, white blood count is 26.7 hemoglobin 12.8 platelet count 281 BUN 31 creatinine 1.04 On 01/24/2024 patient is alert and oriented x 3. Patient still having some significant shortness of breath currently on 11 L nasal cannula. Cardiology, pu lmonary and infectious disease services are following. Patient remains on Cardizem drip. Patient remains on IV steroids and IV cefazolin. White blood cell 35.7, creatinine 1.18 bun 40. Current vital signs temp 97.8, heart 76, respiratory rate 26, blood pressure 112/73 with a pulse ox of 91% on 11 L On 01/25/2024 patient is alert and oriented x 3 patient reports some improvement with shortness of breath. Pulmonary cardiology and infectious disease services are following. Cardizem drip has been DC'd patient transition to p.o. Cardizem per cardiology continue IV antibiotics and steroids at this time.. Current vital signs temp 96.4, heart rate 74, respiratory rate 18, blood pressure 118/83 with a pulse ox of 97% on 10 L high flow. Objective - Vital Signs Vital signs: Vital Signs Temp 96.4 F L 01/25/24 08:00 Pulse 77 01/25/24 09:33 Resp 18 01/25/24 09:33 BP 119/83 01/25/24 08:00 Pulse Ox 99 01/25/24 09:26 FiO2 Intake & Output 01/24/24 01/25/24 01/25/24 18:59 06:59 18:59 Intake Total 118 0 Output Total 300 300 Balance -182 -300 0 Weight 68.6 kg Intake: Oral 118 0 Output: Urine 300 300 Other: Voiding Method Urinal Urinal Urinal Diaper Diaper Diaper - Exam In general patient is alert and oriented x 3 in no distress HEENT head normocephalic and atraumatic Neck is supple no JVD no goiter no lymphadenopathy no carotid bruit Chest examination reveals a scattered crackles bilaterally no wheezing Cardiac exam reveals irregular heart sounds S1 and S2 with tachycardia no gallops no murmurs Abdomen is soft nontender no organomegaly with normal bowel sounds Extremity exam reveals no edema no cyanosis or clubbing Neurological examination reveals no gross focal deficits - Labs CBC & Chem 7: 01/25/24 06:10 01/25/24 06:10 Labs: Abnormal Lab Results - Last 24 Hours (Table) 01/24/24 01/24/24 01/25/24 Range/Units 16:33 20:04 06:06 WBC (3.8-10.6) k/uL RBC (4.30-5.90) m/uL Hgb (13.0-17.5) gm/dL Hct (39.0-53.0) % MCV (80.0-100.0) fL Neutrophils # (1.3-7.7) k/uL Lymphocytes # (1.0-4.8) k/uL BUN (9-20) mg/dL Glucose (74-99) mg/dL POC Glucose (mg/dL) 170 H 143 H 172 H (70-110) mg/dL Calcium (8.4-10.2) mg/dL Total Bilirubin (0.2-1.3) mg/dL AST (17-59) U/L ALT (4-49) U/L Alkaline Phosphatase (38-126) U/L Total Protein (6.3-8.2) g/dL Albumin (3.5-5.0) g/dL 01/25/24 01/25/24 01/25/24 Range/Units 06:10 06:10 11:23 WBC 44.3 H (3.8-10.6) k/uL RBC 3.82 L (4.30-5.90) m/uL Hgb 12.4 L (13.0-17.5) gm/dL Hct 38.9 L (39.0-53.0) % MCV 101.9 H (80.0-100.0) fL Neutrophils # 42.2 H (1.3-7.7) k/uL Lymphocytes # 0.6 L (1.0-4.8) k/uL BUN 48 H (9-20) mg/dL Glucose 144 H (74-99) mg/dL POC Glucose (mg/dL) 159 H (70-110) mg/dL Calcium 7.7 L (8.4-10.2) mg/dL Total Bilirubin 2.7 H (0.2-1.3) mg/dL AST 194 H (17-59) U/L ALT 88 H (4-49) U/L Alkaline Phosphatase 165 H (38-126) U/L Total Protein 5.2 L (6.3-8.2) g/dL Albumin 2.2 L (3.5-5.0) g/dL Microbiology - Last 24 Hours (Table) 01/21/24 14:38 Blood Culture Gram Stain - Final Blood Blood Culture - Final Staphylococcus aureus Molecular ID Assessment and Plan Assessment: 1. Pneumonia with sepsis as evident by elevated lactic acid and leukocytosis 2. Acute kidney injury secondary to sepsis and dehydration, kidney function improved significantly since admission 3. History of atrial fibrillation maintained on Eliquis, with episodes of rapid ventricular response during this presentation 4. History of CHF 5. Acute hypoxic respiratory failure requiring high flow oxygen supplements pulmonary are following 6. Elevated liver enzymes we will hold statin at this time and recheck 7. Positive blood culture for Staphylococcus aureus, consultation for infectious disease was initiated DVT prophylaxis Eliquis. GI prophylaxis Protonix Pulmonary services consulted, infectious disease cardiology consultation requested echocardiogram ordered Blood and sputum cultures ordered Repeat labs ordered
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
[2024-01-25 16:20] LABS: Glucose,Whole Blood 170 mg/dL (70-110)
[2024-01-25] MEDS: BENZONATATE 100 MG CAP PO SCH (16:59)
[2024-01-25 20:08] LABS: Glucose,Whole Blood 142 mg/dL (70-110)
[2024-01-25] MEDS: APIXABAN 5 MG TAB PO SCH (21:04)
[2024-01-26 06:06] LABS: Glucose,Whole Blood 150 mg/dL (70-110)
[2024-01-26 07:42] LABS: Basophils # (A) 0.1 k/uL (0-0.2); Basophils % (A) 0 %; Eosinophils # (A) 0.1 k/uL (0-0.7); Eosinophils % (A) 0 %; HCT 37.7 % (39.0-53.0); HGB 12.1 gm/dL (13.0-17.5); Lymphocytes # (A) 0.6 k/uL (1.0-4.8); Lymphocytes % (A) 2 %; MCHC 32.1 g/dL (31.0-37.0); Mean Platelet Volume 12.6; Monocytes # (A) 0.8 k/uL (0-1.0); Monocytes % (A) 2 %; Neutrophils # (A) 34.9 k/uL (1.3-7.7); Neutrophils % (A) 95 %; Platelet Count 161 k/uL (150-450); RBC 3.77 m/uL (4.30-5.90); RDW 14.1 % (11.5-15.5); WBC 36.7 k/uL (3.8-10.6)
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
[2024-01-26 08:40] LABS: ALT 68 U/L (4-49); AST 198 U/L (17-59); African American GFR (CKD) 68 (>60 ml/min/1.73 sqM); Albumin 2.4 g/dL (3.5-5.0); Alkaline Phosphatase 203 U/L (38-126); Anion Gap 5 mmol/L; Blood Urea Nitrogen 57 mg/dL (9-20); Calcium 7.8 mg/dL (8.4-10.2); Carbon Dioxide 24 mmol/L (22-30); Chloride 110 mmol/L (98-107); Glucose 132 mg/dL (74-99); Non-African American GFR(CKD) 59 (>60 ml/min/1.73 sqM); Sodium 139 mmol/L (137-145); Total Bilirubin 2.4 mg/dL (0.2-1.3); Total Protein 5.6 g/dL (6.3-8.2)
[2024-01-26 09:34] LABS: Toxic Granulation Present; Toxic Vacuolation Present
[2024-01-26 11:17] LABS: Glucose,Whole Blood 164 mg/dL (70-110)
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
--- NOTE | 2024-01-26 14:05 | P.PN ---
Subjective Progress Note Date: 01/26/24 Principal diagnosis: Reason for follow-up is left-sided pneumonia and MSSA bacteremia Patient is a 73-year-old with a past medical history significant for atrial fibrillation heart failure , close head injury patient presenting to the hospital for evaluation of increasing shortness of breath left lower chest pain, patient has been diagnosed with left-sided pneumonia and did have a positive blood culture with MSSA prompted this consultation. On today's evaluation that is 01/26/2024, Patient is afebrile this morning patient denies having any chest pain or any worsening cough however still requiring high flow nasal cannula oxygen no nausea vomiting or diarrhea has been reported. Patient white count is down to 36.7, creatinine is 1.22 blood culture repeat has been negative so far Objective - Vital Signs Vital signs: Vital Signs Temp 97.3 F L 01/26/24 08:00 Pulse 86 01/26/24 11:25 Resp 20 01/26/24 11:25 BP 109/73 01/26/24 11:25 Pulse Ox 97 01/26/24 11:25 FiO2 Intake & Output 01/25/24 01/26/24 01/26/24 18:59 06:59 18:59 Intake Total 0 0 Output Total 450 0 300 Balance -450 0 -300 Weight 74 kg 74 kg Intake: Oral 0 0 Output: Urine 450 0 300 Other: Voiding Method Urinal Urinal Urinal Diaper Diaper Diaper # Voids 0 - Exam GENERAL DESCRIPTION: An elderly male lying in bed in no distress RESPIRATORY SYSTEM: Unlabored breathing , decreased breath sounds at left base HEART: S1 S2 regular rate and rhythm , ABDOMEN: Soft , no tenderness EXTREMITIES: No edema feet - Labs CBC & Chem 7: 01/26/24 06:32 01/26/24 06:32 Labs: Abnormal Lab Results - Last 24 Hours (Table) 01/25/24 01/25/24 01/25/24 Range/Units 16:18 20:06 20:25 WBC (3.8-10.6) k/uL RBC (4.30-5.90) m/uL Hgb (13.0-17.5) gm/dL Hct (39.0-53.0) % Neutrophils # (1.3-7.7) k/uL Lymphocytes # (1.0-4.8) k/uL Chloride (98-107) mmol/L BUN (9-20) mg/dL Glucose (74-99) mg/dL POC Glucose (mg/dL) 170 H 142 H (70-110) mg/dL Calcium (8.4-10.2) mg/dL Total Bilirubin (0.2-1.3) mg/dL AST (17-59) U/L ALT (4-49) U/L Alkaline Phosphatase (38-126) U/L Total Protein (6.3-8.2) g/dL Albumin (3.5-5.0) g/dL SARS-CoV-2 (PCR) Detected A (Not Detectd) 01/26/24 01/26/24 01/26/24 Range/Units 06:04 06:32 06:32 WBC 36.7 H (3.8-10.6) k/uL RBC 3.77 L (4.30-5.90) m/uL Hgb 12.1 L (13.0-17.5) gm/dL Hct 37.7 L (39.0-53.0) % Neutrophils # 34.9 H (1.3-7.7) k/uL Lymphocytes # 0.6 L (1.0-4.8) k/uL Chloride 110 H (98-107) mmol/L BUN 57 H (9-20) mg/dL Glucose 132 H (74-99) mg/dL POC Glucose (mg/dL) 150 H (70-110) mg/dL Calcium 7.8 L (8.4-10.2) mg/dL Total Bilirubin 2.4 H (0.2-1.3) mg/dL AST 198 H (17-59) U/L ALT 68 H (4-49) U/L Alkaline Phosphatase 203 H (38-126) U/L Total Protein 5.6 L (6.3-8.2) g/dL Albumin 2.4 L (3.5-5.0) g/dL SARS-CoV-2 (PCR) (Not Detectd) 01/26/24 Range/Units 11:15 WBC (3.8-10.6) k/uL RBC (4.30-5.90) m/uL Hgb (13.0-17.5) gm/dL Hct (39.0-53.0) % Neutrophils # (1.3-7.7) k/uL Lymphocytes # (1.0-4.8) k/uL Chloride (98-107) mmol/L BUN (9-20) mg/dL Glucose (74-99) mg/dL POC Glucose (mg/dL) 164 H (70-110) mg/dL Calcium (8.4-10.2) mg/dL Total Bilirubin (0.2-1.3) mg/dL AST (17-59) U/L ALT (4-49) U/L Alkaline Phosphatase (38-126) U/L Total Protein (6.3-8.2) g/dL Albumin (3.5-5.0) g/dL SARS-CoV-2 (PCR) (Not Detectd) Microbiology - Last 24 Hours (Table) 01/24/24 05:25 Blood Culture - Preliminary Blood Assessment and Plan (1) Bacteremia due to methicillin susceptible Staphylococcus aureus (MSSA) Current Visit: Yes Status: Acute Code(s): R78.81 - BACTEREMIA; B95.61 - METHICILLIN SUSCEP STAPH INFCT CAUSING DIS CLASSD [id number] SNOMED Code(s): 793214235 (2) Pneumonia Current Visit: Yes Status: Acute Code(s): J18.9 - PNEUMONIA, UNSPECIFIED ORGANISM SNOMED Code(s): 164824538 (3) Sepsis Current Visit: Yes Status: Acute Code(s): A41.9 - SEPSIS, UNSPECIFIED ORGANISM SNOMED Code(s): 52499590 Plan: 1patient presented to hospital with sepsis in this patient who did have leukocytosis tachycardia meeting criteria for SIRS source is left lower lobe pneumonia 2-patient with MSSA bacteremia source likely pneumonia, blood culture repeat has been negative so far 3-patient did have worsening of his respiratory status may benefit from dis continuation evidence of any empyema for now continue with cefazolin 2 g every 8 hours, patient white count is trending down Dictation was produced using [employer] dictation software. please excuse any g rammatical, word or spelling errors. Time with Patient: Less than 30
--- NOTE | 2024-01-26 16:04 | P.PN ---
Subjective Progress Note Date: 01/26/24 Rodriguez Jackson, is a 73-year-old male who presented to [facility] emergency room with a chief complaint of worsening shortness of breath, patient stated that he fell 2 weeks ago, he was complaining of left-sided rib pain especially when he takes a deep breath. He was also complaining of cough otherwise he denies any complaints. He was evaluated in the emergency room vital examination on presentation revealed a temperature of 98.8 pulse 118 respiration 18 blood pressure 130/78 pulse ox 97% on 10 L nonrebreather mask Laboratory data revealed a white blood count of 20.8 hemoglobin 12.2 platelet count 310 sodium 134 potassium 3.4 chloride 102 BUN 51 creatinine 1.77 AST 188 ALT 135 troponin 0.012 Testing in the emergency room revealed EKG done in the emergency room revealed atrial fibrillation with rapid ventricular response, chest x-ray revealed patchy left and right lower lobe infiltrates worse on the left. Patient was admitted to medical floor for further evaluation and treatment, pulmonary consultation and cardiology consultation were requested. On 01/23/2024 patient was seen and examined on the medical floor he is alert and oriented x 3 in no apparent distress he reports mild improvement in his shortness of breath, he is still complaining of cough and complaining of chest wall pain otherwise he denies any complaints there is no fever or chills no headache or dizziness no nausea or vomiting no abdominal pain no diarrhea no blood in the stools no burning with urination no frequency or urgency and no hematuria. His temperature is 98.8 pulse 108 respiration 26 blood pressure 138/92 pulse ox 91% on 11 L high flow cannula, white blood count is 26.7 hemoglobin 12.8 platelet count 281 BUN 31 creatinine 1.04 On 01/24/2024 patient is alert and oriented x 3. Patient still having some significant shortness of breath currently on 11 L nasal cannula. Cardiology, pu lmonary and infectious disease services are following. Patient remains on Cardizem drip. Patient remains on IV steroids and IV cefazolin. White blood cell 35.7, creatinine 1.18 bun 40. Current vital signs temp 97.8, heart 76, respiratory rate 26, blood pressure 112/73 with a pulse ox of 91% on 11 L On 01/25/2024 patient is alert and oriented x 3 patient reports some improvement with shortness of breath. Pulmonary cardiology and infectious disease services are following. Cardizem dean has been DC'd patient transition to p.o. Cardilinda per cardiology continue IV antibiotics and steroids at this time.. Current vital signs temp 96.4, heart rate 74, respiratory rate 18, blood pressure 118/83 with a pulse ox of 97% on 10 L high flow. On 01/26/2024 patient was seen and examined on the medical floor he is alert and oriented x 3 in mild respiratory distress, he is maintained on high flow oxygen of 11 L/min, he is still complaining of cough and chest discomfort otherwise he denies any complaints, there is no fever or chills no headache or dizziness no chest pain no nausea or vomiting no abdominal pain no diarrhea no blood in the stools no burning with urination no frequency or urgency and no hematuria. Testing for COVID was positive yesterday. Pulmonary and infectious disease are following. Objective - Vital Signs Vital signs: Vital Signs Temp 97.3 F L 01/26/24 08:00 Pulse 104 H 01/26/24 08:26 Resp 23 01/26/24 08:26 BP 108/75 01/26/24 08:00 Pulse Ox 93 L 01/26/24 08:00 FiO2 Intake & Output 01/25/24 01/26/24 01/26/24 18:59 06:59 18:59 Intake Total 0 0 Output Total 450 0 Balance -450 0 0 Weight 74 kg Intake: Oral 0 0 Output: Urine 450 0 Other: Voiding Method Urinal Urinal Urinal Diaper Diaper Diaper # Voids 0 - Exam In general patient is alert and oriented x 3 in no distress HEENT head normocephalic and atraumatic Neck is supple no JVD no goiter no lymphadenopathy no carotid bruit Chest examination reveals a scattered crackles bilaterally no wheezing Cardiac exam reveals irregular heart sounds S1 and S2 with tachycardia no gallops no murmurs Abdomen is soft nontender no organomegaly with normal bowel sounds Extremity exam reveals no edema no cyanosis or clubbing Neurological examination reveals no gross focal deficits - Labs CBC & Chem 7: 01/26/24 06:32 01/26/24 06:32 Labs: Abnormal Lab Results - Last 24 Hours (Table) 01/25/24 01/25/24 01/25/24 Range/Units 11:23 16:18 20:06 WBC (3.8-10.6) k/uL RBC (4.30-5.90) m/uL Hgb (13.0-17.5) gm/dL Hct (39.0-53.0) % Neutrophils # (1.3-7.7) k/uL Lymphocytes # (1.0-4.8) k/uL Chloride (98-107) mmol/L BUN (9-20) mg/dL Glucose (74-99) mg/dL POC Glucose (mg/dL) 159 H 170 H 142 H (70-110) mg/dL Calcium (8.4-10.2) mg/dL Total Bilirubin (0.2-1.3) mg/dL AST (17-59) U/L ALT (4-49) U/L Alkaline Phosphatase (38-126) U/L Total Protein (6.3-8.2) g/dL Albumin (3.5-5.0) g/dL SARS-CoV-2 (PCR) (Not Detectd) 01/25/24 01/26/24 01/26/24 Range/Units 20:25 06:04 06:32 WBC 36.7 H (3.8-10.6) k/uL RBC 3.77 L (4.30-5.90) m/uL Hgb 12.1 L (13.0-17.5) gm/dL Hct 37.7 L (39.0-53.0) % Neutrophils # 34.9 H (1.3-7.7) k/uL Lymphocytes # 0.6 L (1.0-4.8) k/uL Chloride (98-107) mmol/L BUN (9-20) mg/dL Glucose (74-99) mg/dL POC Glucose (mg/dL) 150 H (70-110) mg/dL Calcium (8.4-10.2) mg/dL Total Bilirubin (0.2-1.3) mg/dL AST (17-59) U/L ALT (4-49) U/L Alkaline Phosphatase (38-126) U/L Total Protein (6.3-8.2) g/dL Albumin (3.5-5.0) g/dL SARS-CoV-2 (PCR) Detected A (Not Detectd) 01/26/24 Range/Units 06:32 WBC (3.8-10.6) k/uL RBC (4.30-5.90) m/uL Hgb (13.0-17.5) gm/dL Hct (39.0-53.0) % Neutrophils # (1.3-7.7) k/uL Lymphocytes # (1.0-4.8) k/uL Chloride 110 H (98-107) mmol/L BUN 57 H (9-20) mg/dL Glucose 132 H (74-99) mg/dL POC Glucose (mg/dL) (70-110) mg/dL Calcium 7.8 L (8.4-10.2) mg/dL Total Bilirubin 2.4 H (0.2-1.3) mg/dL AST 198 H (17-59) U/L ALT 68 H (4-49) U/L Alkaline Phosphatase 203 H (38-126) U/L Total Protein 5.6 L (6.3-8.2) g/dL Albumin 2.4 L (3.5-5.0) g/dL SARS-CoV-2 (PCR) (Not Detectd) Microbiology - Last 24 Hours (Table) 01/24/24 05:25 Blood Culture - Preliminary Blood Assessment and Plan Assessment: 1. Pneumonia with sepsis as evident by elevated lactic acid and leukocytosis 2. Acute kidney injury secondary to sepsis and dehydration, kidney function improved significantly since admission 3. History of atrial fibrillation maintained on Eliquis, with episodes of rapid ventricular response during this presentation 4. History of CHF 5. Acute hypoxic respiratory failure requiring high flow oxygen supplements pulmonary are following 6. Elevated liver enzymes we will hold statin at this time and recheck 7. Positive blood culture for Staphylococcus aureus, consultation for infectious disease was initiated DVT prophylaxis Eliquis. GI prophylaxis Protonix Pulmonary services consulted, infectious disease cardiology consultation requested echocardiogram ordered Blood and sputum cultures ordered Repeat labs ordered
--- NOTE | 2024-01-26 18:58 | CT ---
EXAMINATION TYPE: CT chest wo con DATE OF EXAM: 01/26/2024 6:49 PM COMPARISON: CT 04/30/2019. CLINICAL INDICATION: Male, 73 years old with history of Pneumonia/empyema; PHH, caprice/covid TECHNIQUE: Multiple axial images were obtained through the chest. Sagittal and coronal reformats were created for review. MIP was performed on a separate workstation. Contrast used: mL of (None if empty) Oral contrast used: (None if empty) CT DLP: 423.5 mGycm, Automated exposure control for dose reduction was used. FINDINGS: LUNGS/ PLEURA: Diffuse groundglass opacities throughout the lungs with small left and trace right ple ural effusion. Cystic cavity change in the left lower lung lateral aspect with truncation to the pleu ra. Increasing left lower lobe pulmonary nodule now measuring 16 mm previously 12 mm in 2020. No pneu mothorax. AIRWAY: Patent and unremarkable. HEART: Size within normal limits. MEDIASTINUM: No gross evidence of adenopathy. VASCULATURE: No aortic aneurysm. MUSCULOSKELETAL: Moderate disc degeneration changes are present throughout the thoracolumbar spine. SOFT TISSUES/LYMPH NODES: Unremarkable. LOWER NECK: No significant findings. UPPER ABDOMEN: Gallstones in the gallbladder. Anasarca throughout the abdomen. Spleen is not definiti vely visualized may be surgically absent. May be splenosis present in the left upper quadrant. IMPRESSION: 1. Diffuse groundglass opacities throughout the lung with small left and trace right pleural effusio n. Correlate for volume overload in the setting of congestive heart failure. Correlate for atypical p neumonia. 2. Cystic lesion near the left pleural space possibly with indication to the pleura etiology uncerta in correlate for prior intervention. Possibly representing empyema changes reported in history. Findi ng new from 04/30/2019 left lower lung pulmonary nodule measuring 16 mm increased from prior previousl y measuring 12 mm. 3. Nonvisualization the spleen with suspected splenosis. [facility], , 01/26/2024 6:55 PM
[2024-01-27] MEDS: predniSONE 20 MG TAB PO SCH (08:55)
--- NOTE | 2024-01-27 09:00 | P.PN ---
Subjective Progress Note Date: 01/27/24 Rodriguez Jackson, is a 73-year-old male who presented to [facility] emergency room with a chief complaint of worsening shortness of breath, patient stated that he fell 2 weeks ago, he was complaining of left-sided rib pain especially when he takes a deep breath. He was also complaining of cough otherwise he denies any complaints. He was evaluated in the emergency room vital examination on presentation revealed a temperature of 98.8 pulse 118 respiration 18 blood pressure 130/78 pulse ox 97% on 10 L nonrebreather mask Laboratory data revealed a white blood count of 20.8 hemoglobin 12.2 platelet count 310 sodium 134 potassium 3.4 chloride 102 BUN 51 creatinine 1.77 AST 188 ALT 135 troponin 0.012 Testing in the emergency room revealed EKG done in the emergency room revealed atrial fibrillation with rapid ventricular response, chest x-ray revealed patchy left and right lower lobe infiltrates worse on the left. Patient was admitted to medical floor for further evaluation and treatment, pulmonary consultation and cardiology consultation were requested. On 01/23/2024 patient was seen and examined on the medical floor he is alert and oriented x 3 in no apparent distress he reports mild improvement in his shortness of breath, he is still complaining of cough and complaining of chest wall pain otherwise he denies any complaints there is no fever or chills no headache or dizziness no nausea or vomiting no abdominal pain no diarrhea no blood in the stools no burning with urination no frequency or urgency and no hematuria. His temperature is 98.8 pulse 108 respiration 26 blood pressure 138/92 pulse ox 91% on 11 L high flow cannula, white blood count is 26.7 hemoglobin 12.8 platelet count 281 BUN 31 creatinine 1.04 On 01/24/2024 patient is alert and oriented x 3. Patient still having some significant shortness of breath currently on 11 L nasal cannula. Cardiology, pu lmonary and infectious disease services are following. Patient remains on Cardizem drip. Patient remains on IV steroids and IV cefazolin. White blood cell 35.7, creatinine 1.18 bun 40. Current vital signs temp 97.8, heart 76, respiratory rate 26, blood pressure 112/73 with a pulse ox of 91% on 11 L On 01/25/2024 patient is alert and oriented x 3 patient reports some improvement with shortness of breath. Pulmonary cardiology and infectious disease services are following. Cardizem drip has been DC'd patient transition to p.o. Cardizem per cardiology continue IV antibiotics and steroids at this time.. Current vital signs temp 96.4, heart rate 74, respiratory rate 18, blood pressure 118/83 with a pulse ox of 97% on 10 L high flow. On 01/26/2024 patient was seen and examined on the medical floor he is alert and oriented x 3 in mild respiratory distress, he is maintained on high flow oxygen of 11 L/min, he is still complaining of cough and chest discomfort otherwise he denies any complaints, there is no fever or chills no headache or dizziness no chest pain no nausea or vomiting no abdominal pain no diarrhea no blood in the stools no burning with urination no frequency or urgency and no hematuria. Testing for COVID was positive yesterday. Pulmonary and infectious disease are following. On 01/27/2024 patient is alert and oriented x 3 patient continued to having increase oxygen demands. Per nursing staff pulmonary services were notified patient currently on high flow [address] scan of chest this morning which showed diffuse groundglass opacities and correlation for atypical pneumonia. Patient remains on IV Kefzol and prednisone. Pulmonary and infectious disease services following. Cardiology also following Objective - Vital Signs Vital signs: Vital Signs Temp 97.4 F L 01/27/24 03:29 Pulse 100 01/27/24 03:29 Resp 22 01/27/24 03:29 BP 96/61 01/27/24 03:29 Pulse Ox 99 01/27/24 08:03 FiO2 90 01/27/24 08:03 Intake & Output 01/26/24 01/27/24 01/27/24 18:59 06:59 18:59 Intake Total 0 Output Total 300 850 Balance -300 -850 Weight 74 kg Intake: Oral 0 Output: Urine 300 850 Other: Voiding Method External Catheter Urinal Diaper - Exam In general patient is alert and oriented x 3 in no distress HEENT head normocephalic and atraumatic Neck is supple no JVD no goiter no lymphadenopathy no carotid bruit Chest examination reveals a scattered crackles bilaterally no wheezing Cardiac exam reveals irregular heart sounds S1 and S2 with tachycardia no gallops no murmurs Abdomen is soft nontender no organomegaly with normal bowel sounds Extremity exam reveals no edema no cyanosis or clubbing Neurological examination reveals no gross focal deficits - Labs CBC & Chem 7: 01/26/24 06:32 01/26/24 06:32 Labs: Abnormal Lab Results - Last 24 Hours (Table) 01/26/24 01/26/24 Range/Units 06:32 11:15 Neutrophils # 34.9 H (1.3-7.7) k/uL Lymphocytes # 0.6 L (1.0-4.8) k/uL POC Glucose (mg/dL) 164 H (70-110) mg/dL Microbiology - Last 24 Hours (Table) 01/24/24 05:25 Blood Culture - Preliminary Blood Assessment and Plan Assessment: 1. Pneumonia with sepsis as evident by elevated lactic acid and leukocytosis 2. Acute kidney injury secondary to sepsis and dehydration, kidney function improved significantly since admission 3. History of atrial fibrillation maintained on Eliquis, with episodes of rapid ventricular response during this presentation 4. History of CHF 5. Acute hypoxic respiratory failure requiring high flow oxygen supplements pulmonary are following 6. Elevated liver enzymes we will hold statin at this time and recheck 7. Positive blood culture for Staphylococcus aureus, consultation for infectious disease was initiated 8. COVID-19 positive DVT prophylaxis Eliquis. GI prophylaxis Protonix Pulmonary services consulted, infectious disease cardiology consultation re quested echocardiogram ordered Blood and sputum cultures ordered Repeat labs ordered
[2024-01-27] MEDS: ACETAMINOPHEN TAB 325 MG TAB PO PRN (09:17)
[2024-01-27] MEDS: ALBUTEROL HFA INHALER INHALATION SCH (11:38)
[2024-01-27] MEDS: methylPREDNISolone SOD SUCCI 125 MG/2 ML VIAL IV SCH (11:39)
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
[2024-01-27 16:33] LABS: Glucose,Whole Blood 173 mg/dL (70-110)
[2024-01-27 20:22] LABS: Glucose,Whole Blood 185 mg/dL (70-110)
[2024-01-28 06:19] LABS: Glucose,Whole Blood 134 mg/dL (70-110)
[2024-01-28 09:15] LABS: Basophils # (A) 0.1 k/uL (0-0.2); Basophils % (A) 0 %; Eosinophils % (A) 0 %; HCT 34.7 % (39.0-53.0); HGB 10.9 gm/dL (13.0-17.5); Hypochromasia Slight; Lymphocytes # (A) 0.9 k/uL (1.0-4.8); Lymphocytes % (A) 2 %; MCHC 31.5 g/dL (31.0-37.0); MCV 101.6 fL (80.0-100.0); Macrocytosis Slight; Mean Platelet Volume 12.7; Monocytes # (A) 0.5 k/uL (0-1.0); Monocytes % (A) 1 %; Neutrophils # (A) 35.4 k/uL (1.3-7.7); Neutrophils % (A) 96 %; Platelet Count 139 k/uL (150-450); RBC 3.41 m/uL (4.30-5.90); RDW 13.8 % (11.5-15.5); WBC 37.1 k/uL (3.8-10.6)
[2024-01-28 09:35] LABS: ALT 31 U/L (4-49); AST 77 U/L (17-59); African American GFR (CKD) 62 (>60 ml/min/1.73 sqM); Albumin 2.1 g/dL (3.5-5.0); Alkaline Phosphatase 229 U/L (38-126); Anion Gap 2 mmol/L; Blood Urea Nitrogen 63 mg/dL (9-20); Calcium 7.5 mg/dL (8.4-10.2); Carbon Dioxide 26 mmol/L (22-30); Chloride 108 mmol/L (98-107); Glucose 117 mg/dL (74-99); Non-African American GFR(CKD) 54 (>60 ml/min/1.73 sqM); Potassium 4.7 mmol/L (3.5-5.1); Sodium 136 mmol/L (137-145); Total Bilirubin 1.6 mg/dL (0.2-1.3); Total Protein 5.1 g/dL (6.3-8.2)
--- NOTE | 2024-01-28 09:48 | P.PN ---
Subjective Progress Note Date: 01/28/24 Rodriguez Jackson, is a 73-year-old male who presented to [facility] emergency room with a chief complaint of worsening shortness of breath, patient stated that he fell 2 weeks ago, he was complaining of left-sided rib pain especially when he takes a deep breath. He was also complaining of cough otherwise he denies any complaints. He was evaluated in the emergency room vital examination on presentation revealed a temperature of 98.8 pulse 118 respiration 18 blood pressure 130/78 pulse ox 97% on 10 L nonrebreather mask Laboratory data revealed a white blood count of 20.8 hemoglobin 12.2 platelet count 310 sodium 134 potassium 3.4 chloride 102 BUN 51 creatinine 1.77 AST 188 ALT 135 troponin 0.012 Testing in the emergency room revealed EKG done in the emergency room revealed atrial fibrillation with rapid ventricular response, chest x-ray revealed patchy left and right lower lobe infiltrates worse on the left. Patient was admitted to medical floor for further evaluation and treatment, pulmonary consultation and cardiology consultation were requested. On 01/23/2024 patient was seen and examined on the medical floor he is alert and oriented x 3 in no apparent distress he reports mild improvement in his shortness of breath, he is still complaining of cough and complaining of chest wall pain otherwise he denies any complaints there is no fever or chills no headache or dizziness no nausea or vomiting no abdominal pain no diarrhea no blood in the stools no burning with urination no frequency or urgency and no hematuria. His temperature is 98.8 pulse 108 respiration 26 blood pressure 138/92 pulse ox 91% on 11 L high flow cannula, white blood count is 26.7 hemoglobin 12.8 platelet count 281 BUN 31 creatinine 1.04 On 01/24/2024 patient is alert and oriented x 3. Patient still having some significant shortness of breath currently on 11 L nasal cannula. Cardiology, pu lmonary and infectious disease services are following. Patient remains on Cardizem drip. Patient remains on IV steroids and IV cefazolin. White blood cell 35.7, creatinine 1.18 bun 40. Current vital signs temp 97.8, heart 76, respiratory rate 26, blood pressure 112/73 with a pulse ox of 91% on 11 L On 01/25/2024 patient is alert and oriented x 3 patient reports some improvement with shortness of breath. Pulmonary cardiology and infectious disease services are following. Cardizem drip has been DC'd patient transition to p.o. Cardizem per cardiology continue IV antibiotics and steroids at this time.. Current vital signs temp 96.4, heart rate 74, respiratory rate 18, blood pressure 118/83 with a pulse ox of 97% on 10 L high flow. On 01/26/2024 patient was seen and examined on the medical floor he is alert and oriented x 3 in mild respiratory distress, he is maintained on high flow oxygen of 11 L/min, he is still complaining of cough and chest discomfort otherwise he denies any complaints, there is no fever or chills no headache or dizziness no chest pain no nausea or vomiting no abdominal pain no diarrhea no blood in the stools no burning with urination no frequency or urgency and no hematuria. Testing for COVID was positive yesterday. Pulmonary and infectious disease are following. On 01/27/2024 patient is alert and oriented x 3 patient continued to having increase oxygen demands. Per nursing staff pulmonary services were notified patient currently on high flow [address] scan of chest this morning which showed diffuse groundglass opacities and correlation for atypical pneumonia. Patient remains on IV Kefzol and prednisone. Pulmonary and infectious disease services following. Cardiology also following On 01/28/2024 patient is alert and oriented x 3. Patient at this time is resting comfortably in bed. Patient remains on Airvo 60%. Temp 97.6, heart rate 95, respiratory rate 24, blood pressure 100/67. Pulmonary cardiology and infectious disease are following patient remains on IV Kefzol and Solu-Medrol Objective - Vital Signs Vital signs: Vital Signs Temp 97.6 F 01/28/24 09:24 Pulse 95 01/28/24 09:24 Resp 24 01/28/24 09:24 BP 100/67 01/28/24 09:24 Pulse Ox 97 01/28/24 09:24 FiO2 55 01/28/24 09:14 Intake & Output 01/27/24 01/28/24 01/28/24 18:59 06:59 18:59 Intake Total 252 Output Total 0 500 Balance 252 -500 Weight 74 kg Intake: Oral 252 Output: Urine 0 500 Other: Voiding Method Urinal Diaper Diaper External Catheter - Exam In general patient is alert and oriented x 3 in no distress HEENT head normocephalic and atraumatic Neck is supple no JVD no goiter no lymphadenopathy no carotid bruit Chest examination reveals a scattered crackles bilaterally no wheezing Cardiac exam reveals irregular heart sounds S1 and S2 with tachycardia no gall ops no murmurs Abdomen is soft nontender no organomegaly with normal bowel sounds Extremity exam reveals no edema no cyanosis or clubbing Neurological examination reveals no gross focal deficits - Labs CBC & Chem 7: 01/28/24 08:18 01/28/24 08:18 Labs: Abnormal Lab Results - Last 24 Hours (Table) 01/27/24 01/27/24 01/28/24 Range/Units 16:31 20:21 06:17 WBC (3.8-10.6) k/uL RBC (4.30-5.90) m/uL Hgb (13.0-17.5) gm/dL Hct (39.0-53.0) % MCV (80.0-100.0) fL Sodium (137-145) mmol/L Chloride (98-107) mmol/L BUN (9-20) mg/dL Creatinine (0.66-1.25) mg/dL Glucose (74-99) mg/dL POC Glucose (mg/dL) 173 H 185 H 134 H (70-110) mg/dL Calcium (8.4-10.2) mg/dL Total Bilirubin (0.2-1.3) mg/dL AST (17-59) U/L Alkaline Phosphatase (38-126) U/L Total Protein (6.3-8.2) g/dL Albumin (3.5-5.0) g/dL 01/28/24 01/28/24 Range/Units 08:18 08:18 WBC 37.1 H (3.8-10.6) k/uL RBC 3.41 L (4.30-5.90) m/uL Hgb 10.9 L (13.0-17.5) gm/dL Hct 34.7 L (39.0-53.0) % MCV 101.6 H (80.0-100.0) fL Sodium 136 L (137-145) mmol/L Chloride 108 H (98-107) mmol/L BUN 63 H (9-20) mg/dL Creatinine 1.31 H (0.66-1.25) mg/dL Glucose 117 H (74-99) mg/dL POC Glucose (mg/dL) (70-110) mg/dL Calcium 7.5 L (8.4-10.2) mg/dL Total Bilirubin 1.6 H (0.2-1.3) mg/dL AST 77 H (17-59) U/L Alkaline Phosphatase 229 H (38-126) U/L Total Protein 5.1 L (6.3-8.2) g/dL Albumin 2.1 L (3.5-5.0) g/dL Microbiology - Last 24 Hours (Table) 01/24/24 05:25 Blood Culture - Preliminary Blood Assessment and Plan Assessment: 1. Pneumonia with sepsis as evident by elevated lactic acid and leukocytosis 2. Acute kidney injury secondary to sepsis and dehydration, kidney function improved significantly since admission 3. History of atrial fibrillation maintained on Eliquis, with episodes of rapid ventricular response during this presentation 4. History of CHF 5. Acute hypoxic respiratory failure requiring high flow oxygen supplements pulmonary are following 6. Elevated liver enzymes we will hold statin at this time and recheck 7. Positive blood culture for Staphylococcus aureus, consultation for infectious disease was initiated 8. COVID-19 positive DVT prophylaxis Eliquis. GI prophylaxis Protonix Pulmonary services consulted, infectious disease cardiology consultation requested echocardiogram ordered Blood and sputum cultures ordered Repeat labs ordered
[2024-01-28 10:15] LABS: Poikilocytosis (M) Present; Target Cells Present
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
[2024-01-28 11:44] LABS: Glucose,Whole Blood 156 mg/dL (70-110)
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
[2024-01-28 16:37] LABS: Glucose,Whole Blood 161 mg/dL (70-110)
[2024-01-28 20:08] LABS: Glucose,Whole Blood 214 mg/dL (70-110)
[2024-01-28] MEDS: INSULIN ASPART (NovoLOG) 100 UNIT/ML VIAL SQ SCH (21:34)
[2024-01-29 06:22] LABS: Glucose,Whole Blood 174 mg/dL (70-110)
[2024-01-29] MEDS ORDERED: INSULIN ASPART (NovoLOG) 100 UNIT/ML VIAL SQ SCH (07:30)
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
[2024-01-29 10:56] LABS: Basophils # (A) 0.1 k/uL (0-0.2); Basophils % (A) 0 %; Eosinophils # (A) 0.3 k/uL (0-0.7); Eosinophils % (A) 1 %; HCT 37.2 % (39.0-53.0); HGB 11.7 gm/dL (13.0-17.5); Hypochromasia Slight; Lymphocytes # (A) 0.8 k/uL (1.0-4.8); Lymphocytes % (A) 2 %; MCH 32.1 pg (25.0-35.0); MCHC 31.5 g/dL (31.0-37.0); MCV 101.9 fL (80.0-100.0); Macrocytosis Slight; Mean Platelet Volume 13.7; Monocytes # (A) 0.6 k/uL (0-1.0); Monocytes % (A) 1 %; Neutrophils # (A) 42.8 k/uL (1.3-7.7); Neutrophils % (A) 96 %; Platelet Count 181 k/uL (150-450); RBC 3.66 m/uL (4.30-5.90); WBC 44.6 k/uL (3.8-10.6)
[2024-01-29 11:14] LABS: ALT 25 U/L (4-49); AST 70 U/L (17-59); African American GFR (CKD) 80 (>60 ml/min/1.73 sqM); Albumin 2.4 g/dL (3.5-5.0); Alkaline Phosphatase 263 U/L (38-126); Anion Gap 6 mmol/L; Blood Urea Nitrogen 56 mg/dL (9-20); Calcium 7.8 mg/dL (8.4-10.2); Carbon Dioxide 22 mmol/L (22-30); Chloride 109 mmol/L (98-107); Glucose 155 mg/dL (74-99); Non-African American GFR(CKD) 69 (>60 ml/min/1.73 sqM); Potassium 4.6 mmol/L (3.5-5.1); Sodium 137 mmol/L (137-145); Total Bilirubin 1.5 mg/dL (0.2-1.3); Total Protein 5.5 g/dL (6.3-8.2)
--- NOTE | 2024-01-29 11:18 | P.PN ---
Subjective Progress Note Date: 01/29/24 Rodriguez Jackson, is a 73-year-old male who presented to [facility] emergency room with a chief complaint of worsening shortness of breath, patient stated that he fell 2 weeks ago, he was complaining of left-sided rib pain especially when he takes a deep breath. He was also complaining of cough otherwise he denies any complaints. He was evaluated in the emergency room vital examination on presentation revealed a temperature of 98.8 pulse 118 respiration 18 blood pressure 130/78 pulse ox 97% on 10 L nonrebreather mask Laboratory data revealed a white blood count of 20.8 hemoglobin 12.2 platelet count 310 sodium 134 potassium 3.4 chloride 102 BUN 51 creatinine 1.77 AST 188 ALT 135 troponin 0.012 Testing in the emergency room revealed EKG done in the emergency room revealed atrial fibrillation with rapid ventricular response, chest x-ray revealed patchy left and right lower lobe infiltrates worse on the left. Patient was admitted to medical floor for further evaluation and treatment, pulmonary consultation and cardiology consultation were requested. On 01/23/2024 patient was seen and examined on the medical floor he is alert and oriented x 3 in no apparent distress he reports mild improvement in his shortness of breath, he is still complaining of cough and complaining of chest wall pain otherwise he denies any complaints there is no fever or chills no headache or dizziness no nausea or vomiting no abdominal pain no diarrhea no blood in the stools no burning with urination no frequency or urgency and no hematuria. His temperature is 98.8 pulse 108 respiration 26 blood pressure 138/92 pulse ox 91% on 11 L high flow cannula, white blood count is 26.7 hemoglobin 12.8 platelet count 281 BUN 31 creatinine 1.04 On 01/24/2024 patient is alert and oriented x 3. Patient still having some significant shortness of breath currently on 11 L nasal cannula. Cardiology, pu lmonary and infectious disease services are following. Patient remains on Cardizem drip. Patient remains on IV steroids and IV cefazolin. White blood cell 35.7, creatinine 1.18 bun 40. Current vital signs temp 97.8, heart 76, respiratory rate 26, blood pressure 112/73 with a pulse ox of 91% on 11 L On 01/25/2024 patient is alert and oriented x 3 patient reports some improvement with shortness of breath. Pulmonary cardiology and infectious disease services are following. Cardizem dean has been DC'd patient transition to p.o. Cardizekatey per cardiology continue IV antibiotics and steroids at this time.. Current vital signs temp 96.4, heart rate 74, respiratory rate 18, blood pressure 118/83 with a pulse ox of 97% on 10 L high flow. On 01/26/2024 patient was seen and examined on the medical floor he is alert and oriented x 3 in mild respiratory distress, he is maintained on high flow oxygen of 11 L/min, he is still complaining of cough and chest discomfort otherwise he denies any complaints, there is no fever or chills no headache or dizziness no chest pain no nausea or vomiting no abdominal pain no diarrhea no blood in the stools no burning with urination no frequency or urgency and no hematuria. Testing for COVID was positive yesterday. Pulmonary and infectious disease are following. On 01/27/2024 patient is alert and oriented x 3 patient continued to having increase oxygen demands. Per nursing staff pulmonary services were notified patient currently on high flow [address] scan of chest this morning which showed diffuse groundglass opacities and correlation for atypical pneumonia. Patient remains on IV Kefzol and prednisone. Pulmonary and infectious disease services following. Cardiology also following On 01/28/2024 patient is alert and oriented x 3. Patient at this time is resting comfortably in bed. Patient remains on Airvo 60%. Temp 97.6, heart rate 95, respiratory rate 24, blood pressure 100/67. Pulmonary cardiology and infectious disease are following patient remains on IV Kefzol and Solu-Medrol On 01/29/2024 patient was seen and examined on the medical floor he is alert and oriented x 3 in no apparent distress,he is still maintained on high flow oxygen, he is complaining of generalized weakness and complaining of constipation he has very poor oral intake, there is no fever or chills no headache or dizziness no chest pain, he has shortness of breath with any activity no palpitation he has continuous cough no nausea or vomiting no abdominal pain no diarrhea and no urinary symptoms. Objective - Vital Signs Vital signs: Vital Signs Temp 98.1 F 01/29/24 08:38 Pulse 113 H 01/29/24 08:40 Resp 24 01/29/24 08:40 BP 117/73 01/29/24 08:38 Pulse Ox 95 01/29/24 08:38 FiO2 60 01/29/24 07:37 Intake & Output 01/28/24 01/29/24 01/29/24 18:59 06:59 18:59 Intake Total 330 60 Output Total 700 850 Balance -370 -850 60 Weight 73.5 kg Intake: Oral 330 60 Output: Urine 700 850 Other: Voiding Method Diaper Diaper External Catheter External Catheter External Catheter # Bowel Movements 1 - Exam In general patient is alert and oriented x 3 in no distress HEENT head normocephalic and atraumatic Neck is supple no JVD no goiter no lymphadenopathy no carotid bruit Chest examination reveals a scattered crackles bilaterally no wheezing Cardiac exam reveals irregular heart sounds S1 and S2 with tachycardia no gallops no murmurs Abdomen is soft nontender no organomegaly with normal bowel sounds Extremity exam reveals no edema no cyanosis or clubbing Neurological examination reveals no gross focal deficits - Labs CBC & Chem 7: 01/28/24 08:18 01/29/24 10:26 Labs: Abnormal Lab Results - Last 24 Hours (Table) 01/28/24 01/28/24 01/28/24 Range/Units 11:42 16:35 20:05 POC Glucose (mg/dL) 156 H 161 H 214 H (70-110) mg/dL 01/29/24 Range/Units 06:19 POC Glucose (mg/dL) 174 H (70-110) mg/dL Assessment and Plan Assessment: 1. Pneumonia with sepsis as evident by elevated lactic acid and leukocytosis 2. Acute kidney injury secondary to sepsis and dehydration, kidney function improved significantly since admission 3. History of atrial fibrillation maintained on Eliquis, with episodes of rapid ventricular response during this presentation 4. History of CHF 5. Acute hypoxic respiratory failure requiring high flow oxygen supplements pulmonary are following 6. Elevated liver enzymes we will hold statin at this time and recheck 7. Positive blood culture for Staphylococcus aureus, consultation for infectious disease was initiated 8. COVID-19 positive DVT prophylaxis Eliquis. GI prophylaxis Protonix Pulmonary services consulted, infectious disease cardiology consultation requested echocardiogram ordered Blood and sputum cultures ordered Repeat labs ordered
[2024-01-29 11:25] LABS: Glucose,Whole Blood 208 mg/dL (70-110)
[2024-01-29] MEDS: NYSTATIN 100,000 UNIT/ML SUSP 500,000 UNIT/5 ML CUP PO SCH (13:16)
[2024-01-29 13:51] LABS: Hypersegmented Neutrophils Present
[2024-01-29 13:52] LABS: Target Cells Present
[2024-01-29 16:25] LABS: Glucose,Whole Blood 121 mg/dL (70-110)
[2024-01-29 20:10] LABS: Glucose,Whole Blood 183 mg/dL (70-110)
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
[2024-01-29] MEDS: DOCUSATE 100 MG CAP PO SCH (22:18)
[2024-01-30 06:00] LABS: Glucose,Whole Blood 151 mg/dL (70-110)
[2024-01-30 07:47] LABS: Basophils # (A) 0.1 k/uL (0-0.2); Basophils % (A) 0 %; Eosinophils # (A) 0.4 k/uL (0-0.7); Eosinophils % (A) 1 %; HCT 37.6 % (39.0-53.0); HGB 11.8 gm/dL (13.0-17.5); Hypochromasia Marked; Lymphocytes # (A) 0.7 k/uL (1.0-4.8); Lymphocytes % (A) 2 %; MCH 32.9 pg (25.0-35.0); MCHC 31.3 g/dL (31.0-37.0); MCV 104.9 fL (80.0-100.0); Macrocytosis Moderate; Mean Platelet Volume 13.5; Monocytes # (A) 0.5 k/uL (0-1.0); Monocytes % (A) 1 %; Neutrophils # (A) 42.1 k/uL (1.3-7.7); Neutrophils % (A) 96 %; Platelet Count 183 k/uL (150-450); RBC 3.59 m/uL (4.30-5.90); RDW 13.9 % (11.5-15.5); WBC 43.9 k/uL (3.8-10.6)
--- NOTE | 2024-01-30 07:48 | XR ---
EXAMINATION TYPE: XR chest 1V portable DATE OF EXAM: 01/30/2024 7:04 AM COMPARISON: 01/24/2024 CLINICAL INDICATION: Male, 73 years old with history of CoVID pneumonia, , FINDINGS: Diffuse interstitial and bilateral airspace opacity persists. Heart remains borderline enlarged. Aure ent is rotated towards the right. Interval development of at least a moderate sized left apical pneum othorax estimated at at approximately 40%. IMPRESSION: 1. Interval development of a moderate to large left-sided pneumothorax estimated at 40%. 2. Background diffuse interstitial infiltrates persist. Critical findings called to WENCESLAO, Nurse Mendez at 7:45am. [facility], , 01/30/2024 7:45 AM
[2024-01-30 07:57] LABS: ALT 26 U/L (4-49); AST 69 U/L (17-59); African American GFR (CKD) >90 (>60 ml/min/1.73 sqM); Albumin 2.5 g/dL (3.5-5.0); Alkaline Phosphatase 258 U/L (38-126); Anion Gap 4 mmol/L; Blood Urea Nitrogen 49 mg/dL (9-20); C Reactive Protein 3.8 mg/dL (<1.0); Calcium 7.6 mg/dL (8.4-10.2); Carbon Dioxide 21 mmol/L (22-30); Chloride 111 mmol/L (98-107); Glucose 117 mg/dL (74-99); Non-African American GFR(CKD) 85 (>60 ml/min/1.73 sqM); Potassium 4.9 mmol/L (3.5-5.1); Sodium 136 mmol/L (137-145); Total Bilirubin 1.7 mg/dL (0.2-1.3); Total Protein 5.8 g/dL (6.3-8.2)
[2024-01-30 08:27] LABS: Glucose,Whole Blood 124 mg/dL (70-110)
--- NOTE | 2024-01-30 09:52 | XR ---
EXAMINATION TYPE: XR chest 1V portable DATE OF EXAM: 01/30/2024 9:30 AM COMPARISON: Earlier today CLINICAL INDICATION: Male, 73 years old with history of chest tube placement, , FINDINGS: Heart mildly enlarged. Diffuse interstitial and patchy opacities persist bilaterally. Interval placem ent of apically directed left-sided chest tube with reexpansion of the left lung. A trace 1 cm left a pical pneumothorax remains. IMPRESSION: 1. Placement of left-sided chest tube with residual, trace 1 cm left apical pneumothorax. 2. Diffuse bilateral interstitial and patchy infiltrates persist. [facility], , 01/30/2024 9:50 AM
[2024-01-30 10:56] LABS: Hypersegmented Neutrophils Present; Target Cells Present
[2024-01-30] MEDS: LACTULOSE 20 GM/30 ML CUP PO ONE (11:15)
[2024-01-30] MEDS: FLUCONAZOLE IN NACL,ISO-OSM 100 MG in SALINE 1 50ML.BAG IVPB SCH (11:20)
[2024-01-30] MEDS: SODIUM CHLORIDE 0.9% 1,000 ML IV SCH (11:22)
[2024-01-30 12:13] LABS: Glucose,Whole Blood 126 mg/dL (70-110)
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
--- NOTE | 2024-01-30 15:30 | P.PCN ---
Date of Procedure: 01/30/24 Preoperative Diagnosis: Left-sided pneumothorax Postoperative Diagnosis: Left-sided pneumothorax Procedure(s) Performed: Chest tube insertion, left-sided Anesthesia: local Surgeon: Yulia Pickett Estimated Blood Loss (ml): 0 Condition: critical Disposition: ICU Operative Findings: A time-out was completed verifying correct patient, procedure, site, positioning, and special equipment if applicable. The patient was positioned appropriately for chest tube placement. The patients left chest was prepped and draped in sterile fashion. 1% Lidocaine was used to anesthetize the surrounding skin area. A 2 cm skin incision was made in the mid-axillary line at the inframammarycrease. Utilizing blunt dissection a subcutaneous tunnel was created cephalad just adjacent to the superior rib. The pleural space was entered bluntly and gush of air and blood was observed. A finger was inserted into the pleural space to check for anatomy and guide tube insertion. A 28 [place] thoracostomy tube was inserted using a Janessa clamp and positioned appropriately. The chest tube was sutured securely to the skin and a sterile dressing applied. A pleurevac was attached to the chest tube and a chest x-ray obtained. I personally performed this procedure and I was was present for the entire procedure. Estimated Blood Loss: Was 0. Nevertheless, there was an evacuation of a left- sided hemothorax and the total amount of output was 500 cc The patient tolerated the procedure well and there were no complications. Chest x-ray post chest tube insertion shows recovery of the left-sided pneumothorax and the patient is a positive airleak.
[2024-01-30 16:33] LABS: Glucose,Whole Blood 124 mg/dL (70-110)
--- NOTE | 2024-01-30 17:10 | P.PN ---
Subjective Progress Note Date: 01/30/24 Rodriguez Jackson, is a 73-year-old male who presented to [facility] emergency room with a chief complaint of worsening shortness of breath, patient stated that he fell 2 weeks ago, he was complaining of left-sided rib pain especially when he takes a deep breath. He was also complaining of cough otherwise he denies any complaints. He was evaluated in the emergency room vital examination on presentation revealed a temperature of 98.8 pulse 118 respiration 18 blood pressure 130/78 pulse ox 97% on 10 L nonrebreather mask Laboratory data revealed a white blood count of 20.8 hemoglobin 12.2 platelet count 310 sodium 134 potassium 3.4 chloride 102 BUN 51 creatinine 1.77 AST 188 ALT 135 troponin 0.012 Testing in the emergency room revealed EKG done in the emergency room revealed atrial fibrillation with rapid ventricular response, chest x-ray revealed patchy left and right lower lobe infiltrates worse on the left. Patient was admitted to medical floor for further evaluation and treatment, pulmonary consultation and cardiology consultation were requested. On 01/23/2024 patient was seen and examined on the medical floor he is alert and oriented x 3 in no apparent distress he reports mild improvement in his shortness of breath, he is still complaining of cough and complaining of chest wall pain otherwise he denies any complaints there is no fever or chills no headache or dizziness no nausea or vomiting no abdominal pain no diarrhea no blood in the stools no burning with urination no frequency or urgency and no hematuria. His temperature is 98.8 pulse 108 respiration 26 blood pressure 138/92 pulse ox 91% on 11 L high flow cannula, white blood count is 26.7 hemoglobin 12.8 platelet count 281 BUN 31 creatinine 1.04 On 01/24/2024 patient is alert and oriented x 3. Patient still having some significant shortness of breath currently on 11 L nasal cannula. Cardiology, pu lmonary and infectious disease services are following. Patient remains on Cardizem drip. Patient remains on IV steroids and IV cefazolin. White blood cell 35.7, creatinine 1.18 bun 40. Current vital signs temp 97.8, heart 76, respiratory rate 26, blood pressure 112/73 with a pulse ox of 91% on 11 L On 01/25/2024 patient is alert and oriented x 3 patient reports some improvement with shortness of breath. Pulmonary cardiology and infectious disease services are following. Cardizem dean has been DC'd patient transition to p.o. Cardizekatey per cardiology continue IV antibiotics and steroids at this time.. Current vital signs temp 96.4, heart rate 74, respiratory rate 18, blood pressure 118/83 with a pulse ox of 97% on 10 L high flow. On 01/26/2024 patient was seen and examined on the medical floor he is alert and oriented x 3 in mild respiratory distress, he is maintained on high flow oxygen of 11 L/min, he is still complaining of cough and chest discomfort otherwise he denies any complaints, there is no fever or chills no headache or dizziness no chest pain no nausea or vomiting no abdominal pain no diarrhea no blood in the stools no burning with urination no frequency or urgency and no hematuria. Testing for COVID was positive yesterday. Pulmonary and infectious disease are following. On 01/27/2024 patient is alert and oriented x 3 patient continued to having increase oxygen demands. Per nursing staff pulmonary services were notified patient currently on high flow [address] scan of chest this morning which showed diffuse groundglass opacities and correlation for atypical pneumonia. Patient remains on IV Kefzol and prednisone. Pulmonary and infectious disease services following. Cardiology also following On 01/28/2024 patient is alert and oriented x 3. Patient at this time is resting comfortably in bed. Patient remains on Airvo 60%. Temp 97.6, heart rate 95, respiratory rate 24, blood pressure 100/67. Pulmonary cardiology and infectious disease are following patient remains on IV Kefzol and Solu-Medrol On 01/29/2024 patient was seen and examined on the medical floor he is alert and oriented x 3 in no apparent distress,he is still maintained on high flow oxygen, he is complaining of generalized weakness and complaining of constipation he has very poor oral intake, there is no fever or chills no headache or dizziness no chest pain, he has shortness of breath with any activity no palpitation he has continuous cough no nausea or vomiting no abdominal pain no diarrhea and no urinary symptoms. On 01/30/2024 patient was seen and examined in the ICU, he is alert responsive in no apparent distress maintained on high flow oxygen via Airvo, he was transferred to ICU due to worsening shortness of breath, chest x-ray today revealed interval development of a large left-sided pneumothorax estimated at 40%, he underwent chest tube placement, on the left. His vital exam reveals a temperature of 97.5 pulse 108 respiration 33 blood pressure 133/82 pulse ox is 98% on high flow cannula with FiO2 of 50% Objective - Vital Signs Vital signs: Vital Signs Temp 97.5 F L 01/30/24 09:00 Pulse 93 01/30/24 15:50 Resp 27 H 01/30/24 15:50 BP 114/74 01/30/24 15:00 Pulse Ox 98 01/30/24 15:55 FiO2 50 01/30/24 15:55 Intake & Output 01/29/24 01/30/24 01/30/24 18:59 06:59 18:59 Intake Total 180 705 Output Total 950 760 Balance -770 -55 Weight 72 kg 72 kg Intake: IV 30 Invasive Line 3 10 Sodium Chloride 0.9% 1, 20 000 ml @ 50 mls/hr IV . Q20H [facility] Rx#:[id number] Intake, IV Titration 675 Amount Fluconazole in NaCl,Iso- 100 Osm 100 mg In Saline 1 50ml.bag @ 50 mls/hr IVPB DAILY [facility] Rx#:[id number] Sodium Chloride 0.9% 1, 525 000 ml @ 75 mls/hr IV . [id number] [facility] Rx#:[id number] ceFAZolin 2 gm In Sodium 50 Chloride 0.9% 50 ml @ 100 mls/hr IVPB Q8HR [facility] Rx# :[id number] Oral 180 Output: Chest Tube Drainage 250 Left Left Pleural/ 250 Mediastinal Urine 950 510 Other: Voiding Method External Catheter External Catheter Indwelling Catheter # Bowel Movements 1 3 - Exam In general patient is alert and oriented x 3 in no distress HEENT head normocephalic and atraumatic Neck is supple no JVD no goiter no lymphadenopathy no carotid bruit Chest examination reveals a scattered crackles bilaterally no wheezing Cardiac exam reveals irregular heart sounds S1 and S2 with tachycardia no gallops no murmurs Abdomen is soft nontender no organomegaly with normal bowel sounds Extremity exam reveals no edema no cyanosis or clubbing Neurological examination reveals no gross focal deficits - Labs CBC & Chem 7: 01/30/24 07:29 01/30/24 07:29 Labs: Abnormal Lab Results - Last 24 Hours (Table) 01/29/24 01/30/2424 Range/Units 20:07 05:58 07:29 WBC (3.8-10.6) k/uL RBC (4.30-5.90) m/uL Hgb (13.0-17.5) gm/dL Hct (39.0-53.0) % MCV (80.0-100.0) fL Neutrophils # (1.3-7.7) k/uL Lymphocytes # (1.0-4.8) k/uL Sodium (137-145) mmol/L Chloride (98-107) mmol/L Carbon Dioxide (22-30) mmol/L BUN (9-20) mg/dL Glucose (74-99) mg/dL POC Glucose (mg/dL) 183 H 151 H (70-110) mg/dL Calcium (8.4-10.2) mg/dL Total Bilirubin (0.2-1.3) mg/dL AST (17-59) U/L Alkaline Phosphatase (38-126) U/L C-Reactive Protein (<1.0) mg/dL Total Protein (6.3-8.2) g/dL Albumin (3.5-5.0) g/dL Procalcitonin 0.57 H (0.02-0.50) ng/mL 01/30/24 01/30/24 01/30/24 Range/Units 07:29 07:29 08:25 WBC 43.9 H (3.8-10.6) k/uL RBC 3.59 L (4.30-5.90) m/uL Hgb 11.8 L (13.0-17.5) gm/dL Hct 37.6 L (39.0-53.0) % MCV 104.9 H (80.0-100.0) fL Neutrophils # 42.1 H (1.3-7.7) k/uL Lymphocytes # 0.7 L (1.0-4.8) k/uL Sodium 136 L (137-145) mmol/L Chloride 111 H (98-107) mmol/L Carbon Dioxide 21 L (22-30) mmol/L BUN 49 H (9-20) mg/dL Glucose 117 H (74-99) mg/dL POC Glucose (mg/dL) 124 H (70-110) mg/dL Calcium 7.6 L (8.4-10.2) mg/dL Total Bilirubin 1.7 H (0.2-1.3) mg/dL AST 69 H (17-59) U/L Alkaline Phosphatase 258 H (38-126) U/L C-Reactive Protein 3.8 H (<1.0) mg/dL Total Protein 5.8 L (6.3-8.2) g/dL Albumin 2.5 L (3.5-5.0) g/dL Procalcitonin (0.02-0.50) ng/mL 01/30/24 01/30/24 Range/Units 12:13 16:31 WBC (3.8-10.6) k/uL RBC (4.30-5.90) m/uL Hgb (13.0-17.5) gm/dL Hct (39.0-53.0) % MCV (80.0-100.0) fL Neutrophils # (1.3-7.7) k/uL Lymphocytes # (1.0-4.8) k/uL Sodium (137-145) mmol/L Chloride (98-107) mmol/L Carbon Dioxide (22-30) mmol/L BUN (9-20) mg/dL Glucose (74-99) mg/dL POC Glucose (mg/dL) 126 H 124 H (70-110) mg/dL Calcium (8.4-10.2) mg/dL Total Bilirubin (0.2-1.3) mg/dL AST (17-59) U/L Alkaline Phosphatase (38-126) U/L C-Reactive Protein (<1.0) mg/dL Total Protein (6.3-8.2) g/dL Albumin (3.5-5.0) g/dL Procalcitonin (0.02-0.50) ng/mL Microbiology - Last 24 Hours (Table) 01/24/24 05:25 Blood Culture - Final Blood Assessment and Plan Assessment: 1. Pneumonia with sepsis as evident by elevated lactic acid and leukocytosis 2. Acute kidney injury secondary to sepsis and dehydration, kidney function improved significantly since admission 3. History of atrial fibrillation maintained on Eliquis, with episodes of rapid ventricular response during this presentation 4. History of CHF 5. Acute hypoxic respiratory failure requiring high flow oxygen supplements pulmonary are following 6. Elevated liver enzymes we will hold statin at this time and recheck 7. Positive blood culture for Staphylococcus aureus, consultation for infectious disease was initiated 8. COVID-19 positive 9. Left-sided pneumothorax requiring left-sided chest tube insertion DVT prophylaxis Eliquis. GI prophylaxis Protonix Pulmonary services consulted, infectious disease cardiology consultation requested echocardiogram ordered Blood and sputum cultures ordered Repeat labs ordered
[2024-01-30 21:36] LABS: Glucose,Whole Blood 141 mg/dL (70-110)
[2024-01-31 06:00] LABS: Glucose,Whole Blood 122 mg/dL (70-110)
[2024-01-31 06:33] LABS: Basophils % (A) 0 %; Eosinophils # (A) 0.1 k/uL (0-0.7); Eosinophils % (A) 0 %; HCT 31.2 % (39.0-53.0); HGB 10.1 gm/dL (13.0-17.5); Hypochromasia Slight; Lymphocytes # (A) 0.6 k/uL (1.0-4.8); Lymphocytes % (A) 2 %; MCH 33.2 pg (25.0-35.0); MCHC 32.3 g/dL (31.0-37.0); MCV 102.9 fL (80.0-100.0); Macrocytosis Slight; Mean Platelet Volume 13.8; Monocytes # (A) 0.4 k/uL (0-1.0); Monocytes % (A) 1 %; Neutrophils # (A) 31.6 k/uL (1.3-7.7); Neutrophils % (A) 96 %; Platelet Count 135 k/uL (150-450); RBC 3.03 m/uL (4.30-5.90); RDW 14.2 % (11.5-15.5); WBC 32.8 k/uL (3.8-10.6)
[2024-01-31 06:43] LABS: African American GFR (CKD) >90 (>60 ml/min/1.73 sqM); Anion Gap 1 mmol/L; Blood Urea Nitrogen 40 mg/dL (9-20); Calcium 7.1 mg/dL (8.4-10.2); Carbon Dioxide 24 mmol/L (22-30); Chloride 111 mmol/L (98-107); Glucose 111 mg/dL (74-99); Non-African American GFR(CKD) 85 (>60 ml/min/1.73 sqM); Potassium 4.7 mmol/L (3.5-5.1); Sodium 136 mmol/L (137-145)
--- NOTE | 2024-01-31 06:53 | XR ---
EXAMINATION TYPE: XR chest 1V portable DATE OF EXAM: 01/31/2024 3:54 AM COMPARISON: 01/30/2024 CLINICAL INDICATION: Male, 73 years old with history of shortness of breath, , FINDINGS: Patient is rotated towards the right altering the normal cardiac and mediastinal contours. Left apica l chest tube remains in place. Previous trace left apical pneumothorax no longer well seen. Heart mil dly enlarged. Interstitial opacity in bilateral patchy airspace opacity persists without significant change. Nodular density projecting at the left base. IMPRESSION: 1. Left-sided chest tube in place. Previous trace left apical pneumothorax no longer seen. 2. Interstitial and patchy airspace disease persists bilaterally. 3. Possible left basilar pulmonary nodule. Attention on follow-up. [facility], , 01/31/2024 6:51 AM
--- NOTE | 2024-01-31 10:48 | P.PN ---
Subjective Progress Note Date: 01/31/24 Rodriguez Jackson, is a 73-year-old male who presented to [facility] emergency room with a chief complaint of worsening shortness of breath, patient stated that he fell 2 weeks ago, he was complaining of left-sided rib pain especially when he takes a deep breath. He was also complaining of cough otherwise he denies any complaints. He was evaluated in the emergency room vital examination on presentation revealed a temperature of 98.8 pulse 118 respiration 18 blood pressure 130/78 pulse ox 97% on 10 L nonrebreather mask Laboratory data revealed a white blood count of 20.8 hemoglobin 12.2 platelet count 310 sodium 134 potassium 3.4 chloride 102 BUN 51 creatinine 1.77 AST 188 ALT 135 troponin 0.012 Testing in the emergency room revealed EKG done in the emergency room revealed atrial fibrillation with rapid ventricular response, chest x-ray revealed patchy left and right lower lobe infiltrates worse on the left. Patient was admitted to medical floor for further evaluation and treatment, pulmonary consultation and cardiology consultation were requested. On 01/23/2024 patient was seen and examined on the medical floor he is alert and oriented x 3 in no apparent distress he reports mild improvement in his shortness of breath, he is still complaining of cough and complaining of chest wall pain otherwise he denies any complaints there is no fever or chills no headache or dizziness no nausea or vomiting no abdominal pain no diarrhea no blood in the stools no burning with urination no frequency or urgency and no hematuria. His temperature is 98.8 pulse 108 respiration 26 blood pressure 138/92 pulse ox 91% on 11 L high flow cannula, white blood count is 26.7 hemoglobin 12.8 platelet count 281 BUN 31 creatinine 1.04 On 01/24/2024 patient is alert and oriented x 3. Patient still having some significant shortness of breath currently on 11 L nasal cannula. Cardiology, pu lmonary and infectious disease services are following. Patient remains on Cardizem drip. Patient remains on IV steroids and IV cefazolin. White blood cell 35.7, creatinine 1.18 bun 40. Current vital signs temp 97.8, heart 76, respiratory rate 26, blood pressure 112/73 with a pulse ox of 91% on 11 L On 01/25/2024 patient is alert and oriented x 3 patient reports some improvement with shortness of breath. Pulmonary cardiology and infectious disease services are following. Cardizem dean has been DC'd patient transition to p.o. Cardizekatey per cardiology continue IV antibiotics and steroids at this time.. Current vital signs temp 96.4, heart rate 74, respiratory rate 18, blood pressure 118/83 with a pulse ox of 97% on 10 L high flow. On 01/26/2024 patient was seen and examined on the medical floor he is alert and oriented x 3 in mild respiratory distress, he is maintained on high flow oxygen of 11 L/min, he is still complaining of cough and chest discomfort otherwise he denies any complaints, there is no fever or chills no headache or dizziness no chest pain no nausea or vomiting no abdominal pain no diarrhea no blood in the stools no burning with urination no frequency or urgency and no hematuria. Testing for COVID was positive yesterday. Pulmonary and infectious disease are following. On 01/27/2024 patient is alert and oriented x 3 patient continued to having increase oxygen demands. Per nursing staff pulmonary services were notified patient currently on high flow [address] scan of chest this morning which showed diffuse groundglass opacities and correlation for atypical pneumonia. Patient remains on IV Kefzol and prednisone. Pulmonary and infectious disease services following. Cardiology also following On 01/28/2024 patient is alert and oriented x 3. Patient at this time is resting comfortably in bed. Patient remains on Airvo 60%. Temp 97.6, heart rate 95, respiratory rate 24, blood pressure 100/67. Pulmonary cardiology and infectious disease are following patient remains on IV Kefzol and Solu-Medrol On 01/29/2024 patient was seen and examined on the medical floor he is alert and oriented x 3 in no apparent distress,he is still maintained on high flow oxygen, he is complaining of generalized weakness and complaining of constipation he has very poor oral intake, there is no fever or chills no headache or dizziness no chest pain, he has shortness of breath with any activity no palpitation he has continuous cough no nausea or vomiting no abdominal pain no diarrhea and no urinary symptoms. On 01/30/2024 patient was seen and examined in the ICU, he is alert responsive in no apparent distress maintained on high flow oxygen via Airvo, he was transferred to ICU due to worsening shortness of breath, chest x-ray today revealed interval development of a large left-sided pneumothorax estimated at 40%, he underwent chest tube placement, on the left. His vital exam reveals a temperature of 97.5 pulse 108 respiration 33 blood pressure 133/82 pulse ox is 98% on high flow cannula with FiO2 of 50% On 01/31/2024 patient remains in the intensive care unit. Chest tube in place. Current vital signs temp 97.9, heart rate 84, respiratory rate 23, blood pressure 102/71 with a pulse ox of 97% on high flow of 40%. Patient remains s hort of breath. Patient denies chest pain. Patient denies nausea vomiting or diarrhea. Patient denies any urinary burning or frequency Objective - Vital Signs Vital signs: Vital Signs Temp 97.9 F 01/31/24 09:00 Pulse 90 01/31/24 10:00 Resp 26 H 01/31/24 10:00 BP 102/71 01/31/24 10:00 Pulse Ox 97 01/31/24 10:00 FiO2 40 01/31/24 10:00 Intake & Output 01/30/24 01/31/24 01/31/24 18:59 06:59 18:59 Intake Total 1077 950 450 Output Total 870 915 205 Balance 207 35 245 Weight 72 kg Intake: IV 30 Invasive Line 3 10 Sodium Chloride 0.9% 1, 20 000 ml @ 50 mls/hr IV . Q20H [facility] Rx#:[id number] Intake, IV Titration 825 950 450 Amount Fluconazole in NaCl,Iso- 100 50 Osm 100 mg In Saline 1 50ml.bag @ 50 mls/hr IVPB DAILY [facility] Rx#:[id number] Sodium Chloride 0.9% 1, 675 900 300 000 ml @ 75 mls/hr IV . [id number] [facility] Rx#:[id number] ceFAZolin 2 gm In Sodium 50 50 100 Chloride 0.9% 50 ml @ 100 mls/hr IVPB Q8HR [facility] Rx# :[id number] Oral 222 Output: Chest Tube Drainage 260 240 50 Left Left Pleural/ 260 240 50 Mediastinal Urine 610 675 155 Other: Voiding Method Indwelling Catheter Indwelling Catheter # Bowel Movements 1 - Exam In general patient is alert and oriented x 3 in no distress HEENT head normocephalic and atraumatic Neck is supple no JVD no goiter no lymphadenopathy no carotid bruit Chest examination reveals a scattered crackles bilaterally no wheezing Cardiac exam reveals irregular heart sounds S1 and S2 with tachycardia no gallops no murmurs Abdomen is soft nontender no organomegaly with normal bowel sounds Extremity exam reveals no edema no cyanosis or clubbing Neurological examination reveals no gross focal deficits - Labs CBC & Chem 7: 01/31/24 05:55 01/31/24 05:55 Labs: Abnormal Lab Results - Last 24 Hours (Table) 01/30/24 01/30/24 01/30/24 Range/Units 07:29 07:29 12:13 WBC (3.8-10.6) k/uL RBC (4.30-5.90) m/uL Hgb (13.0-17.5) gm/dL Hct (39.0-53.0) % MCV (80.0-100.0) fL Plt Count (150-450) k/uL Neutrophils # 42.1 H (1.3-7.7) k/uL Lymphocytes # 0.7 L (1.0-4.8) k/uL Sodium (137-145) mmol/L Chloride (98-107) mmol/L BUN (9-20) mg/dL Glucose (74-99) mg/dL POC Glucose (mg/dL) 126 H (70-110) mg/dL Calcium (8.4-10.2) mg/dL Procalcitonin 0.57 H (0.02-0.50) ng/mL 01/30/24 01/30/24 01/31/24 Range/Units 16:31 21:34 05:55 WBC 32.8 H (3.8-10.6) k/uL RBC 3.03 L (4.30-5.90) m/uL Hgb 10.1 L (13.0-17.5) gm/dL Hct 31.2 L (39.0-53.0) % MCV 102.9 H (80.0-100.0) fL Plt Count 135 L (150-450) k/uL Neutrophils # 31.6 H (1.3-7.7) k/uL Lymphocytes # 0.6 L (1.0-4.8) k/uL Sodium (137-145) mmol/L Chloride (98-107) mmol/L BUN (9-20) mg/dL Glucose (74-99) mg/dL POC Glucose (mg/dL) 124 H 141 H (70-110) mg/dL Calcium (8.4-10.2) mg/dL Procalcitonin (0.02-0.50) ng/mL 01/31/24 01/31/24 Range/Units 05:55 05:58 WBC (3.8-10.6) k/uL RBC (4.30-5.90) m/uL Hgb (13.0-17.5) gm/dL Hct (39.0-53.0) % MCV (80.0-100.0) fL Plt Count (150-450) k/uL Neutrophils # (1.3-7.7) k/uL Lymphocytes # (1.0-4.8) k/uL Sodium 136 L (137-145) mmol/L Chloride 111 H (98-107) mmol/L BUN 40 H (9-20) mg/dL Glucose 111 H (74-99) mg/dL POC Glucose (mg/dL) 122 H (70-110) mg/dL Calcium 7.1 L (8.4-10.2) mg/dL Procalcitonin (0.02-0.50) ng/mL Assessment and Plan Assessment: 1. Pneumonia with sepsis as evident by elevated lactic acid and leukocytosis 2. Acute kidney injury secondary to sepsis and dehydration, kidney function improved significantly since admission 3. History of atrial fibrillation maintained on Eliquis, with episodes of rapid ventricular response during this presentation 4. History of CHF 5. Acute hypoxic respiratory failure requiring high flow oxygen supplements pulmonary are following 6. Elevated liver enzymes we will hold statin at this time and recheck 7. Positive blood culture for Staphylococcus aureus, consultation for infectious disease was initiated 8. COVID-19 positive 9. Left-sided pneumothorax requiring left-sided chest tube insertion DVT prophylaxis Eliquis. GI prophylaxis Protonix Pulmonary services consulted, infectious disease cardiology consultation requested echocardiogram ordered Blood and sputum cultures ordered Repeat labs ordered
[2024-01-31 11:34] LABS: Glucose,Whole Blood 159 mg/dL (70-110)
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
--- NOTE | 2024-01-31 15:52 | US ---
EXAMINATION TYPE: US gallbladder DATE OF EXAM: 01/30/2024 COMPARISON: NONE CLINICAL INDICATION: Male, 73 years old with history of elevated LFTs; Patient denies any other signs , symptoms, or relevant history TECHNIQUE: Grayscale and color Doppler imaging of the right upper quadrant was performed. FINDINGS: EXAM MEASUREMENTS: Liver Length: 12.8 Gallbladder Wall: 0.1 cm CBD: 0.3 cm Right Kidney: 11.6 x 5.5 x 4.8 cm FISHER LAMPARA NET NOTES:Patient not able to take a breath in and hold Pancreas: Obscured by bowel gas Liver: Overall homogeneous echotexture. There may be some scattered double duct throughout the imaged liver. Gallbladder: ? Echogenic foci within dependent portion of gallbladder. No wall thickening or surroun ding fluid. Evidence for sonographic Carvalho's sign: No CBD: wnl Right Kidney: wnl IMPRESSION: 1. Suggestion of some minimal layering sludge or gravel in the gallbladder. No shadowing stones or fi ndings of acute cholecystitis. 2. There may be a few scattered double ducts within the liver which can be seen with mild intrahepati c ductal dilatation. However, the bile duct itself is not dilated. Some underlying cholestasis is a c onsideration. [facility], , 01/31/2024 3:49 PM
[2024-01-31 16:05] LABS: Glucose,Whole Blood 140 mg/dL (70-110)
[2024-01-31 20:55] LABS: Glucose,Whole Blood 187 mg/dL (70-110)
--- NOTE | 2024-02-01 02:35 | PN ---
PROGRESS NOTE SUBJECTIVE: Mr. Rodriguez Jackson was seen by us before. I was asked to re-evaluate him in the light of his atrial fibrillation. It appears that his atrial fibrillation is chronic. Rate is well controlled. He is hemodynamically stable. Had a chest tube yesterday. The pneumothorax seems to have resolved. OBJECTIVE: HEART: S1, S2 heard normally. Irregular rate and rhythm noted. Short systolic murmur noted. LUNGS: Reveal improved air entry. ABDOMEN: Soft. LOWER EXTREMITIES: Reveal diminished pulses. PLAN: Continue current medications for rate control and anticoagulation. Rate is well controlled. I will come back and see him as needed. MMODL / IJN: [id number] /
[2024-02-01 06:04] LABS: HCT 35.1 % (39.0-53.0); HGB 10.8 gm/dL (13.0-17.5); Hypochromasia Marked; MCH 32.4 pg (25.0-35.0); MCHC 30.8 g/dL (31.0-37.0); MCV 105.1 fL (80.0-100.0); Macrocytosis Moderate; Mean Platelet Volume 13.4; Platelet Count 181 k/uL (150-450); RBC 3.34 m/uL (4.30-5.90); RDW 14.1 % (11.5-15.5); WBC 46.7 k/uL (3.8-10.6)
[2024-02-01 06:33] LABS: ALT 32 U/L (4-49); AST 40 U/L (17-59); African American GFR (CKD) >90 (>60 ml/min/1.73 sqM); Albumin 2.1 g/dL (3.5-5.0); Alkaline Phosphatase 224 U/L (38-126); Anion Gap 1 mmol/L; Blood Urea Nitrogen 47 mg/dL (9-20); Calcium 7.4 mg/dL (8.4-10.2); Carbon Dioxide 21 mmol/L (22-30); Chloride 113 mmol/L (98-107); Glucose 121 mg/dL (74-99); Non-African American GFR(CKD) 81 (>60 ml/min/1.73 sqM); Potassium 4.7 mmol/L (3.5-5.1); Sodium 135 mmol/L (137-145); Total Bilirubin 1.1 mg/dL (0.2-1.3); Total Protein 5.1 g/dL (6.3-8.2)
[2024-02-01 06:33] LABS: Glucose,Whole Blood 119 mg/dL (70-110)
[2024-02-01 07:10] LABS: Band Neutrophils % 3 %; Lymphocytes # (M) 0.47 k/uL (1.0-4.8); Monocytes # (M) 0.47 k/uL (0-1.0); Neutrophils % (M) 96 %; Nucleated Red Blood Cells 0 /100 WBC (0-0); Total Cells Counted 200
[2024-02-01 07:11] LABS: Polychromasia Present; Stomatocytes Present
--- NOTE | 2024-02-01 07:47 | XR ---
EXAMINATION TYPE: XR chest 1V portable DATE OF EXAM: 02/01/2024 5:58 AM COMPARISON: 01/31/2024 CLINICAL INDICATION: Male, 73 years old with history of shortness of breath, , FINDINGS: Heart size. Apically directed left-sided chest tube. No appreciable pneumothorax. Diffuse interstitia l and bilateral mid and lower lung patchy opacities, right greater than left persist possibly slightl y increased on the left and similar to slightly improved on the right. There may be a partially obscu red pulmonary nodule at the left base. Attention on follow-up. IMPRESSION: 1. Left-sided chest tube in place. No appreciable pneumothorax. 2. Diffuse interstitial and patchy infiltrates persist, right greater than left. Slight worsening at the left base and similar to slightly improved appearance on the right. 3. Possible partially obscured small nodule at the left base. Attention on follow-up. [facility], , 02/01/2024 7:44 AM
--- NOTE | 2024-02-01 10:48 | P.PN ---
Subjective Progress Note Date: 02/01/24 Rodriguez Jackson, is a 73-year-old male who presented to [facility] emergency room with a chief complaint of worsening shortness of breath, patient stated that he fell 2 weeks ago, he was complaining of left-sided rib pain especially when he takes a deep breath. He was also complaining of cough otherwise he denies any complaints. He was evaluated in the emergency room vital examination on presentation revealed a temperature of 98.8 pulse 118 respiration 18 blood pressure 130/78 pulse ox 97% on 10 L nonrebreather mask Laboratory data revealed a white blood count of 20.8 hemoglobin 12.2 platelet count 310 sodium 134 potassium 3.4 chloride 102 BUN 51 creatinine 1.77 AST 188 ALT 135 troponin 0.012 Testing in the emergency room revealed EKG done in the emergency room revealed atrial fibrillation with rapid ventricular response, chest x-ray revealed patchy left and right lower lobe infiltrates worse on the left. Patient was admitted to medical floor for further evaluation and treatment, pulmonary consultation and cardiology consultation were requested. On 01/23/2024 patient was seen and examined on the medical floor he is alert and oriented x 3 in no apparent distress he reports mild improvement in his shortness of breath, he is still complaining of cough and complaining of chest wall pain otherwise he denies any complaints there is no fever or chills no headache or dizziness no nausea or vomiting no abdominal pain no diarrhea no blood in the stools no burning with urination no frequency or urgency and no hematuria. His temperature is 98.8 pulse 108 respiration 26 blood pressure 138/92 pulse ox 91% on 11 L high flow cannula, white blood count is 26.7 hemoglobin 12.8 platelet count 281 BUN 31 creatinine 1.04 On 01/24/2024 patient is alert and oriented x 3. Patient still having some significant shortness of breath currently on 11 L nasal cannula. Cardiology, pu lmonary and infectious disease services are following. Patient remains on Cardizem drip. Patient remains on IV steroids and IV cefazolin. White blood cell 35.7, creatinine 1.18 bun 40. Current vital signs temp 97.8, heart 76, respiratory rate 26, blood pressure 112/73 with a pulse ox of 91% on 11 L On 01/25/2024 patient is alert and oriented x 3 patient reports some improvement with shortness of breath. Pulmonary cardiology and infectious disease services are following. Cardizem dean has been DC'd patient transition to p.o. Cardizekatey per cardiology continue IV antibiotics and steroids at this time.. Current vital signs temp 96.4, heart rate 74, respiratory rate 18, blood pressure 118/83 with a pulse ox of 97% on 10 L high flow. On 01/26/2024 patient was seen and examined on the medical floor he is alert and oriented x 3 in mild respiratory distress, he is maintained on high flow oxygen of 11 L/min, he is still complaining of cough and chest discomfort otherwise he denies any complaints, there is no fever or chills no headache or dizziness no chest pain no nausea or vomiting no abdominal pain no diarrhea no blood in the stools no burning with urination no frequency or urgency and no hematuria. Testing for COVID was positive yesterday. Pulmonary and infectious disease are following. On 01/27/2024 patient is alert and oriented x 3 patient continued to having increase oxygen demands. Per nursing staff pulmonary services were notified patient currently on high flow [address] scan of chest this morning which showed diffuse groundglass opacities and correlation for atypical pneumonia. Patient remains on IV Kefzol and prednisone. Pulmonary and infectious disease services following. Cardiology also following On 01/28/2024 patient is alert and oriented x 3. Patient at this time is resting comfortably in bed. Patient remains on Airvo 60%. Temp 97.6, heart rate 95, respiratory rate 24, blood pressure 100/67. Pulmonary cardiology and infectious disease are following patient remains on IV Kefzol and Solu-Medrol On 01/29/2024 patient was seen and examined on the medical floor he is alert and oriented x 3 in no apparent distress,he is still maintained on high flow oxygen, he is complaining of generalized weakness and complaining of constipation he has very poor oral intake, there is no fever or chills no headache or dizziness no chest pain, he has shortness of breath with any activity no palpitation he has continuous cough no nausea or vomiting no abdominal pain no diarrhea and no urinary symptoms. On 01/30/2024 patient was seen and examined in the ICU, he is alert responsive in no apparent distress maintained on high flow oxygen via Airvo, he was transferred to ICU due to worsening shortness of breath, chest x-ray today revealed interval development of a large left-sided pneumothorax estimated at 40%, he underwent chest tube placement, on the left. His vital exam reveals a temperature of 97.5 pulse 108 respiration 33 blood pressure 133/82 pulse ox is 98% on high flow cannula with FiO2 of 50% On 01/31/2024 patient remains in the intensive care unit. Chest tube in place. Current vital signs temp 97.9, heart rate 84, respiratory rate 23, blood pressure 102/71 with a pulse ox of 97% on high flow of 40%. Patient remains s hort of breath. Patient denies chest pain. Patient denies nausea vomiting or diarrhea. Patient denies any urinary burning or frequency On 02/01/2024 patient is alert and oriented x 3. Patient remains in the intensive care unit. Tube remains in place. Current vital signs temp 97.7, heart rate 79, respiratory rate 24, blood pressure 117/76 with a pulse ox of 100% on 6 L high flow. Patient reports some improvement with shortness of breath. Patient denies chest pain. Patient denies nausea vomiting or diarrhea. Objective - Vital Signs Vital signs: Vital Signs Temp 97.7 F 02/01/24 08:00 Pulse 81 02/01/24 10:00 Resp 24 02/01/24 10:00 BP 117/76 02/01/24 10:00 Pulse Ox 100 02/01/24 10:00 FiO2 40 01/31/24 20:00 Intake & Output 01/31/24 02/01/24 02/01/24 18:59 06:59 18:59 Intake Total 1050 975 325 Output Total 560 580 150 Balance 490 395 175 Weight 72 kg Intake: IV 600 225 Sodium Chloride 0.9% 1, 600 225 000 ml @ 75 mls/hr IV . [id number] [facility] Rx#:[id number] Intake, IV Titration 1050 375 100 Amount Fluconazole in NaCl,Iso- 50 50 Osm 100 mg In Saline 1 50ml.bag @ 50 mls/hr IVPB DAILY [facility] Rx#:[id number] Sodium Chloride 0.9% 1, 900 375 000 ml @ 75 mls/hr IV . [id number] [facility] Rx#:[id number] ceFAZolin 2 gm In Sodium 100 50 Chloride 0.9% 50 ml @ 100 mls/hr IVPB Q8HR [facility] Rx# :[id number] Output: Chest Tube Drainage 150 130 50 Left Left Pleural/ 150 130 50 Mediastinal Urine 410 450 100 Other: Voiding Method Indwelling Catheter Indwelling Catheter Indwelling Catheter - Exam In general patient is alert and oriented x 3 in no distress HEENT head normocephalic and atraumatic Neck is supple no JVD no goiter no lymphadenopathy no carotid bruit Chest examination reveals a scattered crackles bilaterally no wheezing Cardiac exam reveals irregular heart sounds S1 and S2 with tachycardia no gallops no murmurs Abdomen is soft nontender no organomegaly with normal bowel sounds Extremity exam reveals no edema no cyanosis or clubbing Neurological examination reveals no gross focal deficits - Labs CBC & Chem 7: 02/01/24 05:20 02/01/24 05:20 Labs: Abnormal Lab Results - Last 24 Hours (Table) 01/31/24 01/31/24 01/31/24 Range/Units 11:33 16:04 20:48 WBC (3.8-10.6) k/uL RBC (4.30-5.90) m/uL Hgb (13.0-17.5) gm/dL Hct (39.0-53.0) % MCV (80.0-100.0) fL MCHC (31.0-37.0) g/dL Neutrophils # (Manual) (1.3-7.7) k/uL Lymphocytes # (Manual) (1.0-4.8) k/uL Sodium (137-145) mmol/L Chloride (98-107) mmol/L Carbon Dioxide (22-30) mmol/L BUN (9-20) mg/dL Glucose (74-99) mg/dL POC Glucose (mg/dL) 159 H 140 H 187 H (70-110) mg/dL Calcium (8.4-10.2) mg/dL Alkaline Phosphatase (38-126) U/L Total Protein (6.3-8.2) g/dL Albumin (3.5-5.0) g/dL 02/01/24 02/01/24 02/01/24 Range/Units 05:20 05:20 06:32 WBC 46.7 H (3.8-10.6) k/uL RBC 3.34 L (4.30-5.90) m/uL Hgb 10.8 L (13.0-17.5) gm/dL Hct 35.1 L (39.0-53.0) % MCV 105.1 H (80.0-100.0) fL MCHC 30.8 L (31.0-37.0) g/dL Neutrophils # (Manual) 46.20 H (1.3-7.7) k/uL Lymphocytes # (Manual) 0.47 L (1.0-4.8) k/uL Sodium 135 L (137-145) mmol/L Chloride 113 H (98-107) mmol/L Carbon Dioxide 21 L (22-30) mmol/L BUN 47 H (9-20) mg/dL Glucose 121 H (74-99) mg/dL POC Glucose (mg/dL) 119 H (70-110) mg/dL Calcium 7.4 L (8.4-10.2) mg/dL Alkaline Phosphatase 224 H (38-126) U/L Total Protein 5.1 L (6.3-8.2) g/dL Albumin 2.1 L (3.5-5.0) g/dL Microbiology - Last 24 Hours (Table) 01/30/24 09:39 Blood Culture - Preliminary Blood Assessment and Plan Assessment: 1. Pneumonia with sepsis as evident by elevated lactic acid and leukocytosis 2. Acute kidney injury secondary to sepsis and dehydration, kidney function improved significantly since admission 3. History of atrial fibrillation maintained on Eliquis, with episodes of rapid ventricular response during this presentation 4. History of CHF 5. Acute hypoxic respiratory failure requiring high flow oxygen supplements pulmonary are following 6. Elevated liver enzymes we will hold statin at this time and recheck 7. Positive blood culture for Staphylococcus aureus, consultation for infectious disease was initiated 8. COVID-19 positive 9. Left-sided pneumothorax requiring left-sided chest tube insertion DVT prophylaxis Eliquis. GI prophylaxis Protonix Pulmonary services consulted, infectious disease cardiology consultation requested echocardiogram ordered Blood and sputum cultures ordered Repeat labs ordered
[2024-02-01 10:52] LABS: Glucose,Whole Blood 158 mg/dL (70-110)
--- NOTE | 2024-02-01 13:11 | PN ---
PROGRESS NOTE SUBJECTIVE: This patient had a chest tube placed with resolution of pneumothorax. He has chronic atrial fibrillation, rate control is fairly optimal. Only with some movement, rate is slightly higher. We will continue Cardizem that he is on for rate control and add 12.5 mg metoprolol tartrate b.i.d. OBJECTIVE: VITAL SIGNS: Stable. NECK: JVD 1 cm. No carotid bruit. HEART: S1, S2 heard normally. LUNGS: Reveal improved air entry. Rate control is optimal. ABDOMEN: Soft. LOWER EXTREMITIES: Reveal diminished pulses. NEUROLOGIC: Central nervous system assessment was not performed. I will continue to see this patient as needed. MMODL / IJN: [id number] /
[2024-02-01] MEDS: HYDROmorphone 0.5 MG/0.5 ML SYRINGE IVP PRN (15:27)
[2024-02-01 17:30] LABS: Glucose,Whole Blood 140 mg/dL (70-110)
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
[2024-02-01] MEDS: METOPROLOL TARTRATE 12.5 MG TAB PO SCH (20:30)
[2024-02-01 20:34] LABS: Glucose,Whole Blood 151 mg/dL (70-110)
[2024-02-02 06:23] LABS: Glucose,Whole Blood 91 mg/dL (70-110)
[2024-02-02 06:49] LABS: Basophils % (A) 0 %; Eosinophils # (A) 0.1 k/uL (0-0.7); Eosinophils % (A) 0 %; HCT 36.2 % (39.0-53.0); HGB 11.1 gm/dL (13.0-17.5); Hypochromasia Slight; Lymphocytes # (A) 0.8 k/uL (1.0-4.8); Lymphocytes % (A) 2 %; MCH 31.8 pg (25.0-35.0); MCHC 30.6 g/dL (31.0-37.0); MCV 104.2 fL (80.0-100.0); Macrocytosis Moderate; Mean Platelet Volume 14.5; Monocytes # (A) 0.6 k/uL (0-1.0); Monocytes % (A) 1 %; Neutrophils % (A) 96 %; Platelet Count 199 k/uL (150-450); RBC 3.48 m/uL (4.30-5.90); RDW 14.4 % (11.5-15.5); WBC 45.7 k/uL (3.8-10.6)
[2024-02-02 07:06] LABS: ALT 28 U/L (4-49); AST 42 U/L (17-59); African American GFR (CKD) >90 (>60 ml/min/1.73 sqM); Albumin 2.2 g/dL (3.5-5.0); Alkaline Phosphatase 228 U/L (38-126); Anion Gap 5 mmol/L; Blood Urea Nitrogen 45 mg/dL (9-20); Calcium 7.6 mg/dL (8.4-10.2); Carbon Dioxide 21 mmol/L (22-30); Chloride 112 mmol/L (98-107); Glucose 76 mg/dL (74-99); Magnesium 2.1 mg/dL (1.6-2.3); Non-African American GFR(CKD) 85 (>60 ml/min/1.73 sqM); Potassium 4.8 mmol/L (3.5-5.1); Sodium 138 mmol/L (137-145); Total Protein 5.1 g/dL (6.3-8.2)
--- NOTE | 2024-02-02 07:47 | XR ---
EXAMINATION TYPE: XR chest 1V portable DATE OF EXAM: 02/02/2024 4:52 AM COMPARISON: None. CLINICAL INDICATION: Male, 73 years old with history of shortness of breath, FINDINGS: Left-sided chest tube remains unchanged in position. Small pneumothorax on the left remains present. Coarse infiltrates throughout both lung muniz greatest at the right lung base. Stable appearance of the cardio-mediastinal structures at this time. IMPRESSION: 1. Stable portable chest. Clinical correlation and follow up until resolution is recommended. [facility], , 02/02/2024 7:45 AM
[2024-02-02 08:10] LABS: Large Platelets Present; Target Cells Present
[2024-02-02] MEDS: MEGESTROL 400 MG/10 ML CUP PO SCH (09:09)
[2024-02-02] MEDS: predniSONE 20 MG TAB PO SCH (09:11)
--- NOTE | 2024-02-02 09:58 | P.PN ---
Subjective Progress Note Date: 02/01/24 Principal diagnosis: Reason for follow-up is left-sided pneumonia and MSSA bacteremia Patient is a 73-year-old with a past medical history significant for atrial fibrillation heart failure , close head injury patient presenting to the hospital for evaluation of increasing shortness of breath left lower chest pain, patient has been diagnosed with left-sided pneumonia and did have a positive blood culture with MSSA prompted this consultation.Patient did have a chest x-ray morning of 01/30/2024 with evidence of left-sided pneumothorax in this patient who status post chest tube placement on 01/30/2024 by pulmonary On today's evaluation that is 02/01/2024, Patient is afebrile this morning patient is breathing slightly comfortably and is down to 4 L nasal cannula oxygen chest pain has decreased intensity denies any worsening cough or sputum production no abdominal pain and no diarrhea was reported by the nursing staff. Patient white count is up to 46.7 creatinine 0.93 Objective - Vital Signs Vital signs: Vital Signs Temp 97.8 F 02/01/24 12:00 Pulse 99 02/01/24 12:00 Resp 24 02/01/24 12:00 BP 112/68 02/01/24 12:00 Pulse Ox 100 02/01/24 12:00 FiO2 40 01/31/24 20:00 Intake & Output 01/31/24 02/01/24 02/01/24 18:59 06:59 18:59 Intake Total 1050 975 475 Output Total 560 580 240 Balance 490 395 235 Weight 72 kg 72 kg Intake: IV 600 375 Sodium Chloride 0.9% 1, 600 375 000 ml @ 75 mls/hr IV . [id number] [facility] Rx#:[id number] Intake, IV Titration 1050 375 100 Amount Fluconazole in NaCl,Iso- 50 50 Osm 100 mg In Saline 1 50ml.bag @ 50 mls/hr IVPB DAILY [facility] Rx#:[id number] Sodium Chloride 0.9% 1, 900 375 000 ml @ 75 mls/hr IV . [id number] [facility] Rx#:[id number] ceFAZolin 2 gm In Sodium 100 50 Chloride 0.9% 50 ml @ 100 mls/hr IVPB Q8HR [facility] Rx# :[id number] Output: Chest Tube Drainage 150 130 80 Left Left Pleural/ 150 130 80 Mediastinal Urine 410 450 160 Other: Voiding Method Indwelling Catheter Indwelling Catheter Indwelling Catheter - Exam GENERAL DESCRIPTION: An elderly male lying in bed in no distress RESPIRATORY SYSTEM: Unlabored breathing , close bedside left side HEART: S1 S2 regular rate and rhythm , ABDOMEN: Soft , no tenderness EXTREMITIES: No edema feet - Labs CBC & Chem 7: 02/02/24 05:25 02/02/24 05:25 Labs: Abnormal Lab Results - Last 24 Hours (Table) 01/31/24 01/31/24 02/01/24 Range/Units 16:04 20:48 05:20 WBC 46.7 H (3.8-10.6) k/uL RBC 3.34 L (4.30-5.90) m/uL Hgb 10.8 L (13.0-17.5) gm/dL Hct 35.1 L (39.0-53.0) % MCV 105.1 H (80.0-100.0) fL MCHC 30.8 L (31.0-37.0) g/dL Neutrophils # (Manual) 46.20 H (1.3-7.7) k/uL Lymphocytes # (Manual) 0.47 L (1.0-4.8) k/uL Sodium (137-145) mmol/L Chloride (98-107) mmol/L Carbon Dioxide (22-30) mmol/L BUN (9-20) mg/dL Glucose (74-99) mg/dL POC Glucose (mg/dL) 140 H 187 H (70-110) mg/dL Calcium (8.4-10.2) mg/dL Alkaline Phosphatase (38-126) U/L Total Protein (6.3-8.2) g/dL Albumin (3.5-5.0) g/dL 02/01/24 02/01/24 02/01/24 Range/Units 05:20 06:32 10:51 WBC (3.8-10.6) k/uL RBC (4.30-5.90) m/uL Hgb (13.0-17.5) gm/dL Hct (39.0-53.0) % MCV (80.0-100.0) fL MCHC (31.0-37.0) g/dL Neutrophils # (Manual) (1.3-7.7) k/uL Lymphocytes # (Manual) (1.0-4.8) k/uL Sodium 135 L (137-145) mmol/L Chloride 113 H (98-107) mmol/L Carbon Dioxide 21 L (22-30) mmol/L BUN 47 H (9-20) mg/dL Glucose 121 H (74-99) mg/dL POC Glucose (mg/dL) 119 H 158 H (70-110) mg/dL Calcium 7.4 L (8.4-10.2) mg/dL Alkaline Phosphatase 224 H (38-126) U/L Total Protein 5.1 L (6.3-8.2) g/dL Albumin 2.1 L (3.5-5.0) g/dL Microbiology - Last 24 Hours (Table) 01/30/24 09:39 Blood Culture - Preliminary Blood Assessment and Plan (1) Bacteremia due to methicillin susceptible Staphylococcus aureus (MSSA) Current Visit: Yes Status: Acute Code(s): R78.81 - BACTEREMIA; B95.61 - METHICILLIN SUSCEP STAPH INFCT CAUSING DIS CLASSD [id number] SNOMED Code(s): 414270799 (2) Pneumonia Current Visit: Yes Status: Acute Code(s): J18.9 - PNEUMONIA, UNSPECIFIED ORGANISM SNOMED Code(s): 558608665 (3) Sepsis Current Visit: Yes Status: Acute Code(s): A41.9 - SEPSIS, UNSPECIFIED ORGANISM SNOMED Code(s): 14430080 Plan: 1patient presented to hospital with sepsis in this patient who did have leukocytosis tachycardia meeting criteria for SIRS source is left lower lobe pne umonia 2-patient with MSSA bacteremia source likely pneumonia, blood culture repeat has been negative so far 3-patient is afebrile, CT of the chest did not show any empyema echocardiogram did not show any valvular abnormalities repeat blood culture negative 4patient did have complication of left-sided pneumothorax s/p is chest tube placement. 5patient noticed to have worsening of his white count however the patient not running fever and seem to have shown clinical improvement patient be treated with the cefazolin will repeat a CBC with a.m. lab if any further worsening of the white count will add Diflucan for possible oropharyngeal candidiasis Dictation was produced using [employer] dictation software. please excuse any grammatical, word or spelling errors. Time with Patient: Less than 30
--- NOTE | 2024-02-02 10:30 | P.PN ---
Subjective Progress Note Date: 02/02/24 Rodriguez Jackson, is a 73-year-old male who presented to [facility] emergency room with a chief complaint of worsening shortness of breath, patient stated that he fell 2 weeks ago, he was complaining of left-sided rib pain especially when he takes a deep breath. He was also complaining of cough otherwise he denies any complaints. He was evaluated in the emergency room vital examination on presentation revealed a temperature of 98.8 pulse 118 respiration 18 blood pressure 130/78 pulse ox 97% on 10 L nonrebreather mask Laboratory data revealed a white blood count of 20.8 hemoglobin 12.2 platelet count 310 sodium 134 potassium 3.4 chloride 102 BUN 51 creatinine 1.77 AST 188 ALT 135 troponin 0.012 Testing in the emergency room revealed EKG done in the emergency room revealed atrial fibrillation with rapid ventricular response, chest x-ray revealed patchy left and right lower lobe infiltrates worse on the left. Patient was admitted to medical floor for further evaluation and treatment, pulmonary consultation and cardiology consultation were requested. On 01/23/2024 patient was seen and examined on the medical floor he is alert and oriented x 3 in no apparent distress he reports mild improvement in his shortness of breath, he is still complaining of cough and complaining of chest wall pain otherwise he denies any complaints there is no fever or chills no headache or dizziness no nausea or vomiting no abdominal pain no diarrhea no blood in the stools no burning with urination no frequency or urgency and no hematuria. His temperature is 98.8 pulse 108 respiration 26 blood pressure 138/92 pulse ox 91% on 11 L high flow cannula, white blood count is 26.7 hemoglobin 12.8 platelet count 281 BUN 31 creatinine 1.04 On 01/24/2024 patient is alert and oriented x 3. Patient still having some significant shortness of breath currently on 11 L nasal cannula. Cardiology, pu lmonary and infectious disease services are following. Patient remains on Cardizem drip. Patient remains on IV steroids and IV cefazolin. White blood cell 35.7, creatinine 1.18 bun 40. Current vital signs temp 97.8, heart 76, respiratory rate 26, blood pressure 112/73 with a pulse ox of 91% on 11 L On 01/25/2024 patient is alert and oriented x 3 patient reports some improvement with shortness of breath. Pulmonary cardiology and infectious disease services are following. Cardizem dean has been DC'd patient transition to p.o. Cardizekatey per cardiology continue IV antibiotics and steroids at this time.. Current vital signs temp 96.4, heart rate 74, respiratory rate 18, blood pressure 118/83 with a pulse ox of 97% on 10 L high flow. On 01/26/2024 patient was seen and examined on the medical floor he is alert and oriented x 3 in mild respiratory distress, he is maintained on high flow oxygen of 11 L/min, he is still complaining of cough and chest discomfort otherwise he denies any complaints, there is no fever or chills no headache or dizziness no chest pain no nausea or vomiting no abdominal pain no diarrhea no blood in the stools no burning with urination no frequency or urgency and no hematuria. Testing for COVID was positive yesterday. Pulmonary and infectious disease are following. On 01/27/2024 patient is alert and oriented x 3 patient continued to having increase oxygen demands. Per nursing staff pulmonary services were notified patient currently on high flow [address] scan of chest this morning which showed diffuse groundglass opacities and correlation for atypical pneumonia. Patient remains on IV Kefzol and prednisone. Pulmonary and infectious disease services following. Cardiology also following On 01/28/2024 patient is alert and oriented x 3. Patient at this time is resting comfortably in bed. Patient remains on Airvo 60%. Temp 97.6, heart rate 95, respiratory rate 24, blood pressure 100/67. Pulmonary cardiology and infectious disease are following patient remains on IV Kefzol and Solu-Medrol On 01/29/2024 patient was seen and examined on the medical floor he is alert and oriented x 3 in no apparent distress,he is still maintained on high flow oxygen, he is complaining of generalized weakness and complaining of constipation he has very poor oral intake, there is no fever or chills no headache or dizziness no chest pain, he has shortness of breath with any activity no palpitation he has continuous cough no nausea or vomiting no abdominal pain no diarrhea and no urinary symptoms. On 01/30/2024 patient was seen and examined in the ICU, he is alert responsive in no apparent distress maintained on high flow oxygen via Airvo, he was transferred to ICU due to worsening shortness of breath, chest x-ray today revealed interval development of a large left-sided pneumothorax estimated at 40%, he underwent chest tube placement, on the left. His vital exam reveals a temperature of 97.5 pulse 108 respiration 33 blood pressure 133/82 pulse ox is 98% on high flow cannula with FiO2 of 50% On 01/31/2024 patient remains in the intensive care unit. Chest tube in place. Current vital signs temp 97.9, heart rate 84, respiratory rate 23, blood pressure 102/71 with a pulse ox of 97% on high flow of 40%. Patient remains s hort of breath. Patient denies chest pain. Patient denies nausea vomiting or diarrhea. Patient denies any urinary burning or frequency On 02/01/2024 patient is alert and oriented x 3. Patient remains in the intensive care unit. Tube remains in place. Current vital signs temp 97.7, heart rate 79, respiratory rate 24, blood pressure 117/76 with a pulse ox of 100% on 6 L high flow. Patient reports some improvement with shortness of breath. Patient denies chest pain. Patient denies nausea vomiting or diarrhea. On 02/02/2024 patient was seen and examined in the ICU, he is alert and oriented x 3 in no apparent distress, he is complaining of discomfort at the chest tube site, and complaining of shortness of breath otherwise he denies any complaints there is no fever or chills no headache or dizziness, no chest pain, he has occasional cough no nausea or vomiting no abdominal pain no diarrhea no urinary symptoms. Temperature is 97.4 pulse 90 respiration 23 blood pressure 106/78 pulse ox 95% on 4 L nasal cannula, white blood count 45.7 hemoglobin 11.1 platelet count 199 BUN 45 creatinine 0.89 Objective - Vital Signs Vital signs: Vital Signs Temp 98 F 02/02/24 04:00 Pulse 68 02/02/24 07:00 Resp 18 02/02/24 07:00 BP 125/81 02/02/24 07:00 Pulse Ox 93 L 02/02/24 07:00 FiO2 40 01/31/24 20:00 Intake & Output 02/01/24 02/02/24 02/02/24 18:59 06:59 18:59 Intake Total 1000 1025 75 Output Total 585 430 35 Balance 415 595 40 Weight 72 kg 80.9 kg Intake: IV 900 825 75 Sodium Chloride 0.9% 1, 900 825 75 000 ml @ 75 mls/hr IV . [id number] [facility] Rx#:[id number] Intake, IV Titration 100 Amount Fluconazole in NaCl,Iso- 50 Osm 100 mg In Saline 1 50ml.bag @ 50 mls/hr IVPB DAILY [facility] Rx#:[id number] ceFAZolin 2 gm In Sodium 50 Chloride 0.9% 50 ml @ 100 mls/hr IVPB Q8HR [facility] Rx# :[id number] Oral 200 Output: Chest Tube Drainage 180 20 Left Left Pleural/ 180 20 Mediastinal Urine 405 410 35 Other: Voiding Method Indwelling Catheter Indwelling Catheter - Exam In general patient is alert and oriented x 3 in no distress HEENT head normocephalic and atraumatic Neck is supple no JVD no goiter no lymphadenopathy no carotid bruit Chest examination reveals a scattered crackles bilaterally no wheezing Cardiac exam reveals irregular heart sounds S1 and S2 with tachycardia no gallops no murmurs Abdomen is soft nontender no organomegaly with normal bowel sounds Extremity exam reveals no edema no cyanosis or clubbing Neurological examination reveals no gross focal deficits - Labs CBC & Chem 7: 02/02/24 05:25 02/02/24 05:25 Labs: Abnormal Lab Results - Last 24 Hours (Table) 02/01/24 02/01/24 02/01/24 Range/Units 10:51 17:28 20:32 WBC (3.8-10.6) k/uL RBC (4.30-5.90) m/uL Hgb (13.0-17.5) gm/dL Hct (39.0-53.0) % MCV (80.0-100.0) fL MCHC (31.0-37.0) g/dL Neutrophils # (1.3-7.7) k/uL Lymphocytes # (1.0-4.8) k/uL Chloride (98-107) mmol/L Carbon Dioxide (22-30) mmol/L BUN (9-20) mg/dL POC Glucose (mg/dL) 158 H 140 H 151 H (70-110) mg/dL Calcium (8.4-10.2) mg/dL Alkaline Phosphatase (38-126) U/L Total Protein (6.3-8.2) g/dL Albumin (3.5-5.0) g/dL 02/02/24 02/02/24 Range/Units 05:25 05:25 WBC 45.7 H (3.8-10.6) k/uL RBC 3.48 L (4.30-5.90) m/uL Hgb 11.1 L (13.0-17.5) gm/dL Hct 36.2 L (39.0-53.0) % MCV 104.2 H (80.0-100.0) fL MCHC 30.6 L (31.0-37.0) g/dL Neutrophils # 44.0 H (1.3-7.7) k/uL Lymphocytes # 0.8 L (1.0-4.8) k/uL Chloride 112 H (98-107) mmol/L Carbon Dioxide 21 L (22-30) mmol/L BUN 45 H (9-20) mg/dL POC Glucose (mg/dL) (70-110) mg/dL Calcium 7.6 L (8.4-10.2) mg/dL Alkaline Phosphatase 228 H (38-126) U/L Total Protein 5.1 L (6.3-8.2) g/dL Albumin 2.2 L (3.5-5.0) g/dL Microbiology - Last 24 Hours (Table) 01/30/24 09:39 Blood Culture - Preliminary Blood Assessment and Plan Assessment: 1. Pneumonia with sepsis as evident by elevated lactic acid and leukocytosis 2. Acute kidney injury secondary to sepsis and dehydration, kidney function improved significantly since admission 3. History of atrial fibrillation maintained on Eliquis, with episodes of rapid ventricular response during this presentation 4. History of CHF 5. Acute hypoxic respiratory failure requiring high flow oxygen supplements p ulmonary are following 6. Elevated liver enzymes we will hold statin at this time and recheck 7. Positive blood culture for Staphylococcus aureus, consultation for infectious disease was initiated 8. COVID-19 positive 9. Left-sided pneumothorax requiring left-sided chest tube insertion DVT prophylaxis Eliquis. GI prophylaxis Protonix Pulmonary services consulted, infectious disease cardiology consultation requested echocardiogram ordered Blood and sputum cultures ordered Repeat labs ordered
--- NOTE | 2024-02-02 11:01 | P.PN ---
Subjective Progress Note Date: 02/02/24 PROGRESS NOTE The patient is a 73-year-old male who was admitted on the 16 with progressive dyspnea and evidence of pneumothorax. He had a recent COVID infection. He is in atrial fibrillation with controlled ventricular response. He is anticoagulated. He feels tired but denies any chest discomfort, dizziness or palpitations. Hemodynamically he is stable. His chest x-ray continues to show infiltrate. He continues to have the chest tube. His echocardiogram showed a normal systolic function with no significant valvular disease. Medications: Eliquis 5 mg twice a day, Cardizem 60 mg 3 times daily, metoprolol to tartrate 12.5 mg twice a day, prednisone, Protonix, Symbicort PHYSICAL EXAMINATION: Blood pressure 106/70 heart rate 90 LUNGS: Scattered rhonchi HEART: Irregular rate and rhythm, S1, S2. No S3. Systolic ejection murmur ABDOMEN: Soft, nontender, no organomegaly EXTREMETIES: Chronic skin changes with 1+ edema LAB: WBC 45.7, hemoglobin 11.1, BUN 45, creatinine 0.89, potassium 4.8 IMPRESSION: 1. Pneumothorax status post chest tube 2. Atrial flutter, fibrillation with controlled ventricular response, anticoagulated 3. Recent COVID infection and pneumonia with hypoxemia, improving 4. Prior closed head injury PLAN: 1. Increase beta-bernadette 2. Continue Cardizem 3. Continue anticoagulation 4. We will see him on as-needed basis, please feel free to call us for any question Objective - Vital Signs Vital signs: Vital Signs Temp 97.4 F L 02/02/24 09:00 Pulse 90 02/02/24 09:00 Resp 23 02/02/24 09:00 BP 106/78 02/02/24 09:00 Pulse Ox 95 02/02/24 09:00 FiO2 40 01/31/24 20:00 Intake & Output 02/01/24 02/02/24 02/02/24 18:59 06:59 18:59 Intake Total 1000 1025 465 Output Total 585 430 185 Balance 415 595 280 Weight 72 kg 80.9 kg Intake: IV 900 825 225 Sodium Chloride 0.9% 1, 900 825 225 000 ml @ 75 mls/hr IV . [id number] [facility] Rx#:[id number] Intake, IV Titration 100 Amount Fluconazole in NaCl,Iso- 50 Osm 100 mg In Saline 1 50ml.bag @ 50 mls/hr IVPB DAILY [facility] Rx#:[id number] ceFAZolin 2 gm In Sodium 50 Chloride 0.9% 50 ml @ 100 mls/hr IVPB Q8HR [facility] Rx# :[id number] Oral 200 240 Output: Chest Tube Drainage 180 20 Left Left Pleural/ 180 20 Mediastinal Urine 405 410 185 Other: Voiding Method Indwelling Catheter Indwelling Catheter - Labs CBC & Chem 7: 02/02/24 05:25 02/02/24 05:25 Labs: Abnormal Lab Results - Last 24 Hours (Table) 02/01/24 02/01/24 02/02/24 Range/Units 17:28 20:32 05:25 WBC 45.7 H (3.8-10.6) k/uL RBC 3.48 L (4.30-5.90) m/uL Hgb 11.1 L (13.0-17.5) gm/dL Hct 36.2 L (39.0-53.0) % MCV 104.2 H (80.0-100.0) fL MCHC 30.6 L (31.0-37.0) g/dL Neutrophils # 44.0 H (1.3-7.7) k/uL Lymphocytes # 0.8 L (1.0-4.8) k/uL Chloride (98-107) mmol/L Carbon Dioxide (22-30) mmol/L BUN (9-20) mg/dL POC Glucose (mg/dL) 140 H 151 H (70-110) mg/dL Calcium (8.4-10.2) mg/dL Alkaline Phosphatase (38-126) U/L Total Protein (6.3-8.2) g/dL Albumin (3.5-5.0) g/dL 02/02/24 Range/Units 05:25 WBC (3.8-10.6) k/uL RBC (4.30-5.90) m/uL Hgb (13.0-17.5) gm/dL Hct (39.0-53.0) % MCV (80.0-100.0) fL MCHC (31.0-37.0) g/dL Neutrophils # (1.3-7.7) k/uL Lymphocytes # (1.0-4.8) k/uL Chloride 112 H (98-107) mmol/L Carbon Dioxide 21 L (22-30) mmol/L BUN 45 H (9-20) mg/dL POC Glucose (mg/dL) (70-110) mg/dL Calcium 7.6 L (8.4-10.2) mg/dL Alkaline Phosphatase 228 H (38-126) U/L Total Protein 5.1 L (6.3-8.2) g/dL Albumin 2.2 L (3.5-5.0) g/dL Microbiology - Last 24 Hours (Table) 01/30/24 09:39 Blood Culture - Preliminary Blood
[2024-02-02 12:05] LABS: Glucose,Whole Blood 109 mg/dL (70-110)
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
--- NOTE | 2024-02-02 14:54 | P.PN ---
Subjective Progress Note Date: 02/02/24 Principal diagnosis: Reason for follow-up is left-sided pneumonia and MSSA bacteremia Patient is a 73-year-old with a past medical history significant for atrial fibrillation heart failure , close head injury patient presenting to the hospital for evaluation of increasing shortness of breath left lower chest pain, patient has been diagnosed with left-sided pneumonia and did have a positive blood culture with MSSA prompted this consultation.Patient did have a chest x-ray morning of 01/30/2024 with evidence of left-sided pneumothorax in this patient who status post chest tube placement on 01/30/2024 by pulmonary On today's evaluation that is 02/02/2024,the patient denies any fever or any chills, patient is breathing slightly comfortably and is down to 4 L nasal oxygen the patient denies chest pain shortness of breath and no worsening cough, patient denies abdominal pain, no nausea vomiting or diarrhea. Patient white count is 45.7, creatinine 0.89 blood culture repeat has been negative chest x-ray small pneumothorax on the left coarse infiltrates throughout both lungs Objective - Vital Signs Vital signs: Vital Signs Temp 98.6 F 02/02/24 12:00 Pulse 108 H 02/02/24 14:00 Resp 24 02/02/24 14:00 BP 128/81 02/02/24 14:00 Pulse Ox 94 L 02/02/24 14:00 FiO2 40 01/31/24 20:00 Intake & Output 02/01/24 02/02/24 02/02/24 18:59 06:59 18:59 Intake Total 1000 1025 810 Output Total 585 430 320 Balance 415 595 490 Weight 72 kg 80.9 kg Intake: IV 900 825 450 Sodium Chloride 0.9% 1, 900 825 450 000 ml @ 75 mls/hr IV . [id number] [facility] Rx#:[id number] Intake, IV Titration 100 Amount Fluconazole in NaCl,Iso- 50 Osm 100 mg In Saline 1 50ml.bag @ 50 mls/hr IVPB DAILY [facility] Rx#:[id number] ceFAZolin 2 gm In Sodium 50 Chloride 0.9% 50 ml @ 100 mls/hr IVPB Q8HR [facility] Rx# :[id number] Oral 200 360 Output: Chest Tube Drainage 180 20 Left Left Pleural/ 180 20 Mediastinal Urine 405 410 320 Other: Voiding Method Indwelling Catheter Indwelling Catheter Indwelling Catheter - Exam GENERAL DESCRIPTION: An elderly male lying in bed in no distress RESPIRATORY SYSTEM: Unlabored breathing , close bedside left side HEART: S1 S2 regular rate and rhythm , ABDOMEN: Soft , no tenderness EXTREMITIES: No edema feet - Labs CBC & Chem 7: 02/02/24 05:25 02/02/24 05:25 Labs: Abnormal Lab Results - Last 24 Hours (Table) 02/01/24 02/01/24 02/02/24 Range/Units 17:28 20:32 05:25 WBC 45.7 H (3.8-10.6) k/uL RBC 3.48 L (4.30-5.90) m/uL Hgb 11.1 L (13.0-17.5) gm/dL Hct 36.2 L (39.0-53.0) % MCV 104.2 H (80.0-100.0) fL MCHC 30.6 L (31.0-37.0) g/dL Neutrophils # 44.0 H (1.3-7.7) k/uL Lymphocytes # 0.8 L (1.0-4.8) k/uL Chloride (98-107) mmol/L Carbon Dioxide (22-30) mmol/L BUN (9-20) mg/dL POC Glucose (mg/dL) 140 H 151 H (70-110) mg/dL Calcium (8.4-10.2) mg/dL Alkaline Phosphatase (38-126) U/L Total Protein (6.3-8.2) g/dL Albumin (3.5-5.0) g/dL 02/02/24 Range/Units 05:25 WBC (3.8-10.6) k/uL RBC (4.30-5.90) m/uL Hgb (13.0-17.5) gm/dL Hct (39.0-53.0) % MCV (80.0-100.0) fL MCHC (31.0-37.0) g/dL Neutrophils # (1.3-7.7) k/uL Lymphocytes # (1.0-4.8) k/uL Chloride 112 H (98-107) mmol/L Carbon Dioxide 21 L (22-30) mmol/L BUN 45 H (9-20) mg/dL POC Glucose (mg/dL) (70-110) mg/dL Calcium 7.6 L (8.4-10.2) mg/dL Alkaline Phosphatase 228 H (38-126) U/L Total Protein 5.1 L (6.3-8.2) g/dL Albumin 2.2 L (3.5-5.0) g/dL Microbiology - Last 24 Hours (Table) 01/30/24 09:39 Blood Culture - Preliminary Blood Assessment and Plan (1) Bacteremia due to methicillin susceptible Staphylococcus aureus (MSSA) Current Visit: Yes Status: Acute Code(s): R78.81 - BACTEREMIA; B95.61 - METHICILLIN SUSCEP STAPH INFCT CAUSING DIS CLASSD [id number] SNOMED Code(s): 554058723 (2) Pneumonia Current Visit: Yes Status: Acute Code(s): J18.9 - PNEUMONIA, UNSPECIFIED ORGANISM SNOMED Code(s): 655803249 (3) Sepsis Current Visit: Yes Status: Acute Code(s): A41.9 - SEPSIS, UNSPECIFIED ORGANISM SNOMED Code(s): 81158275 Plan: 1patient presented to hospital with sepsis in this patient who did have leukocytosis tachycardia meeting criteria for SIRS source is left lower lobe pneumonia 2-patient with MSSA bacteremia source likely pneumonia, blood culture repeat has been negative so far 3-patient is afebrile, CT of the chest did not show any empyema echocardiogram did not show any valvular abnormalities repeat blood culture negative 4patient did have complication of left-sided pneumothorax s/p is chest tube placement. 5patient noticed to have worsening of his white count however the patient not running fever Diflucan has already been added we will switch cefazolin to naficillin and see clinical response Dictation was produced using [email or web address] dictation software. please excuse any grammatical, word or spelling errors. Time with Patient: Less than 30
[2024-02-02] MEDS: NAFCILLIN 2 GM in DEXTROSE 5% IN WATER 100 ML IVPB SCH (16:26)
[2024-02-02 20:03] LABS: Glucose,Whole Blood 137 mg/dL (70-110)
[2024-02-02] MEDS: METOPROLOL TARTRATE 25 MG TAB PO SCH (20:11)
[2024-02-03 05:10] LABS: HCT 36.2 % (39.0-53.0); HGB 11.4 gm/dL (13.0-17.5); Hypochromasia Slight; MCH 32.4 pg (25.0-35.0); MCHC 31.5 g/dL (31.0-37.0); MCV 103.1 fL (80.0-100.0); Macrocytosis Slight; Mean Platelet Volume 13.2; Platelet Count 159 k/uL (150-450); RBC 3.51 m/uL (4.30-5.90); RDW 14.1 % (11.5-15.5); WBC 35.3 k/uL (3.8-10.6)
[2024-02-03 05:34] LABS: ALT 32 U/L (4-49); AST 52 U/L (17-59); African American GFR (CKD) >90 (>60 ml/min/1.73 sqM); Alkaline Phosphatase 228 U/L (38-126); Anion Gap 1 mmol/L; Blood Urea Nitrogen 36 mg/dL (9-20); Calcium 7.2 mg/dL (8.4-10.2); Carbon Dioxide 22 mmol/L (22-30); Chloride 113 mmol/L (98-107); Glucose 83 mg/dL (74-99); Non-African American GFR(CKD) 81 (>60 ml/min/1.73 sqM); Potassium 4.4 mmol/L (3.5-5.1); Sodium 136 mmol/L (137-145); Total Bilirubin 1.8 mg/dL (0.2-1.3); Total Protein 4.8 g/dL (6.3-8.2)
[2024-02-03 06:02] LABS: Anisocytosis (M) Present; Lymphocytes # (M) 0.71 k/uL (1.0-4.8); Neutrophils # (M) 34.95 k/uL (1.3-7.7); Neutrophils % (M) 99 %; Nucleated Red Blood Cells 0 /100 WBC (0-0); Stomatocytes Present; Total Cells Counted 200
[2024-02-03 06:53] LABS: Glucose,Whole Blood 94 mg/dL (70-110)
--- NOTE | 2024-02-03 08:09 | XR ---
EXAMINATION TYPE: XR chest 1V portable DATE OF EXAM: 02/03/2024 5:31 AM COMPARISON: 02/02/2024 CLINICAL INDICATION: Male, 73 years old with history of left pneumothorax, , FINDINGS: Left apical chest tube remains in place. 9 mm trace left apical pneumothorax now demonstrated. Heart mildly enlarged. Patient is rotated towards the right ultrasound normal cardiac and mediastinal conto urs. Diffuse interstitial opacities and patchy confluent mid and lower lung opacities persist with sl ight interval worsening. IMPRESSION: 1. Left-sided chest tube in place. A trace 9 mm left apical pneumothorax is now visualized. 2. Continued diffuse interstitial opacities with slight interval worsening in airspace disease in the mid and lower lungs. [facility], , 02/03/2024 8:06 AM
--- NOTE | 2024-02-03 09:52 | P.PN ---
Subjective Progress Note Date: 02/03/24 Rodriguez Jackson, is a 73-year-old male who presented to [facility] emergency room with a chief complaint of worsening shortness of breath, patient stated that he fell 2 weeks ago, he was complaining of left-sided rib pain especially when he takes a deep breath. He was also complaining of cough otherwise he denies any complaints. He was evaluated in the emergency room vital examination on presentation revealed a temperature of 98.8 pulse 118 respiration 18 blood pressure 130/78 pulse ox 97% on 10 L nonrebreather mask Laboratory data revealed a white blood count of 20.8 hemoglobin 12.2 platelet count 310 sodium 134 potassium 3.4 chloride 102 BUN 51 creatinine 1.77 AST 188 ALT 135 troponin 0.012 Testing in the emergency room revealed EKG done in the emergency room revealed atrial fibrillation with rapid ventricular response, chest x-ray revealed patchy left and right lower lobe infiltrates worse on the left. Patient was admitted to medical floor for further evaluation and treatment, pulmonary consultation and cardiology consultation were requested. On 01/23/2024 patient was seen and examined on the medical floor he is alert and oriented x 3 in no apparent distress he reports mild improvement in his shortness of breath, he is still complaining of cough and complaining of chest wall pain otherwise he denies any complaints there is no fever or chills no headache or dizziness no nausea or vomiting no abdominal pain no diarrhea no blood in the stools no burning with urination no frequency or urgency and no hematuria. His temperature is 98.8 pulse 108 respiration 26 blood pressure 138/92 pulse ox 91% on 11 L high flow cannula, white blood count is 26.7 hemoglobin 12.8 platelet count 281 BUN 31 creatinine 1.04 On 01/24/2024 patient is alert and oriented x 3. Patient still having some significant shortness of breath currently on 11 L nasal cannula. Cardiology, pu lmonary and infectious disease services are following. Patient remains on Cardizem drip. Patient remains on IV steroids and IV cefazolin. White blood cell 35.7, creatinine 1.18 bun 40. Current vital signs temp 97.8, heart 76, respiratory rate 26, blood pressure 112/73 with a pulse ox of 91% on 11 L On 01/25/2024 patient is alert and oriented x 3 patient reports some improvement with shortness of breath. Pulmonary cardiology and infectious disease services are following. Cardizem dean has been DC'd patient transition to p.o. Cardizekatey per cardiology continue IV antibiotics and steroids at this time.. Current vital signs temp 96.4, heart rate 74, respiratory rate 18, blood pressure 118/83 with a pulse ox of 97% on 10 L high flow. On 01/26/2024 patient was seen and examined on the medical floor he is alert and oriented x 3 in mild respiratory distress, he is maintained on high flow oxygen of 11 L/min, he is still complaining of cough and chest discomfort otherwise he denies any complaints, there is no fever or chills no headache or dizziness no chest pain no nausea or vomiting no abdominal pain no diarrhea no blood in the stools no burning with urination no frequency or urgency and no hematuria. Testing for COVID was positive yesterday. Pulmonary and infectious disease are following. On 01/27/2024 patient is alert and oriented x 3 patient continued to having increase oxygen demands. Per nursing staff pulmonary services were notified patient currently on high flow [address] scan of chest this morning which showed diffuse groundglass opacities and correlation for atypical pneumonia. Patient remains on IV Kefzol and prednisone. Pulmonary and infectious disease services following. Cardiology also following On 01/28/2024 patient is alert and oriented x 3. Patient at this time is resting comfortably in bed. Patient remains on Airvo 60%. Temp 97.6, heart rate 95, respiratory rate 24, blood pressure 100/67. Pulmonary cardiology and infectious disease are following patient remains on IV Kefzol and Solu-Medrol On 01/29/2024 patient was seen and examined on the medical floor he is alert and oriented x 3 in no apparent distress,he is still maintained on high flow oxygen, he is complaining of generalized weakness and complaining of constipation he has very poor oral intake, there is no fever or chills no headache or dizziness no chest pain, he has shortness of breath with any activity no palpitation he has continuous cough no nausea or vomiting no abdominal pain no diarrhea and no urinary symptoms. On 01/30/2024 patient was seen and examined in the ICU, he is alert responsive in no apparent distress maintained on high flow oxygen via Airvo, he was transferred to ICU due to worsening shortness of breath, chest x-ray today revealed interval development of a large left-sided pneumothorax estimated at 40%, he underwent chest tube placement, on the left. His vital exam reveals a temperature of 97.5 pulse 108 respiration 33 blood pressure 133/82 pulse ox is 98% on high flow cannula with FiO2 of 50% On 01/31/2024 patient remains in the intensive care unit. Chest tube in place. Current vital signs temp 97.9, heart rate 84, respiratory rate 23, blood pressure 102/71 with a pulse ox of 97% on high flow of 40%. Patient remains s hort of breath. Patient denies chest pain. Patient denies nausea vomiting or diarrhea. Patient denies any urinary burning or frequency On 02/01/2024 patient is alert and oriented x 3. Patient remains in the intensive care unit. Tube remains in place. Current vital signs temp 97.7, heart rate 79, respiratory rate 24, blood pressure 117/76 with a pulse ox of 100% on 6 L high flow. Patient reports some improvement with shortness of breath. Patient denies chest pain. Patient denies nausea vomiting or diarrhea. On 02/02/2024 patient was seen and examined in the ICU, he is alert and oriented x 3 in no apparent distress, he is complaining of discomfort at the chest tube site, and complaining of shortness of breath otherwise he denies any complaints there is no fever or chills no headache or dizziness, no chest pain, he has occasional cough no nausea or vomiting no abdominal pain no diarrhea no urinary symptoms. Temperature is 97.4 pulse 90 respiration 23 blood pressure 106/78 pulse ox 95% on 4 L nasal cannula, white blood count 45.7 hemoglobin 11.1 platelet count 199 BUN 45 creatinine 0.89 On 02/03/2024 patient remains in the ICU alert and oriented x 3. Patient still has chest tube complaining of some discomfort at site. Speech services at bedside assessing swallow still recommending nectar thick liquids. Current vital signs temp 97.6, heart rate 93, respiratory rate 21. Patient denies chest pain or shortness of breath. Patient denies nausea vomiting or diarrhea. Patient denies any urinary burning and frequency Objective - Vital Signs Vital signs: Vital Signs Temp 97.6 F 02/03/24 04:00 Pulse 98 02/03/24 07:00 Resp 23 02/03/24 07:00 BP 131/90 02/03/24 07:00 Pulse Ox 94 L 02/03/24 08:33 FiO2 40 01/31/24 20:00 Intake & Output 02/02/24 02/03/24 02/03/24 18:59 06:59 18:59 Intake Total 1670 1200 75 Output Total 595 1140 140 Balance 1075 60 -65 Weight 80.5 kg Intake: IV 950 1200 75 Nafcillin 2 gm In 50 300 Dextrose 5% in Water 100 ml @ 50 mls/hr IVPB Q4HR [facility]ENT Rx#:[id number] Sodium Chloride 0.9% 1, 900 900 75 000 ml @ 75 mls/hr IV . [id number] [facility]ENT Rx#:[id number] Oral 720 Output: Chest Tube Drainage 150 Left Left Pleural/ 150 Mediastinal Urine 595 990 140 Other: Voiding Method Indwelling Catheter Indwelling Catheter - Exam In general patient is alert and oriented x 3 in no distress HEENT head normocephalic and atraumatic Neck is supple no JVD no goiter no lymphadenopathy no carotid bruit Chest examination reveals a scattered crackles bilaterally no wheezing Cardiac exam reveals irregular heart sounds S1 and S2 with tachycardia no gallops no murmurs Abdomen is soft nontender no organomegaly with normal bowel sounds Extremity exam reveals no edema no cyanosis or clubbing Neurological examination reveals no gross focal deficits - Labs CBC & Chem 7: 02/03/24 04:38 02/03/24 04:38 Labs: Abnormal Lab Results - Last 24 Hours (Table) 02/02/24 02/03/24 02/03/24 Range/Units 20:02 04:38 04:38 WBC 35.3 H (3.8-10.6) k/uL RBC 3.51 L (4.30-5.90) m/uL Hgb 11.4 L (13.0-17.5) gm/dL Hct 36.2 L (39.0-53.0) % MCV 103.1 H (80.0-100.0) fL Neutrophils # (Manual) 34.95 H (1.3-7.7) k/uL Lymphocytes # (Manual) 0.71 L (1.0-4.8) k/uL Sodium 136 L (137-145) mmol/L Chloride 113 H (98-107) mmol/L BUN 36 H (9-20) mg/dL POC Glucose (mg/dL) 137 H (70-110) mg/dL Calcium 7.2 L (8.4-10.2) mg/dL Total Bilirubin 1.8 H (0.2-1.3) mg/dL Alkaline Phosphatase 228 H (38-126) U/L Total Protein 4.8 L (6.3-8.2) g/dL Albumin 2.0 L (3.5-5.0) g/dL Microbiology - Last 24 Hours (Table) 01/30/24 09:39 Blood Culture - Preliminary Blood Assessment and Plan Assessment: 1. Pneumonia with sepsis as evident by elevated lactic acid and leukocytosis 2. Acute kidney injury secondary to sepsis and dehydration, kidney function improved significantly since admission 3. History of atrial fibrillation maintained on Eliquis, with episodes of rapid ventricular response during this presentation 4. History of CHF 5. Acute hypoxic respiratory failure requiring high flow oxygen supplements pulmonary are following 6. Elevated liver enzymes we will hold statin at this time and recheck 7. Positive blood culture for Staphylococcus aureus, consultation for infectiou s disease was initiated 8. COVID-19 positive 9. Left-sided pneumothorax requiring left-sided chest tube insertion DVT prophylaxis Eliquis. GI prophylaxis Protonix Pulmonary services consulted, infectious disease cardiology consultation requested echocardiogram ordered Blood and sputum cultures ordered Repeat labs ordered
[2024-02-03 11:55] LABS: Glucose,Whole Blood 138 mg/dL (70-110)
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
--- NOTE | 2024-02-03 14:51 | P.PN ---
Subjective Progress Note Date: 02/03/24 Principal diagnosis: Reason for follow-up is left-sided pneumonia and MSSA bacteremia Patient is a 73-year-old with a past medical history significant for atrial fibrillation heart failure , close head injury patient presenting to the hospital for evaluation of increasing shortness of breath left lower chest pain, patient has been diagnosed with left-sided pneumonia and did have a positive blood culture with MSSA prompted this consultation.Patient did have a chest x-ray morning of 01/30/2024 with evidence of left-sided pneumothorax in this patient who status post chest tube placement on 01/30/2024 by pulmonary On today's evaluation that is 02/03/2024,the patient remains to be afebrile, patient is down to 4 L nasal cannula supplemental oxygen and denies any worsening shortness of breath no chest pain and cough is decreased in intensity patient denies having any nausea or vomiting, no abdominal pain and no diarrhea has been reported. Patient white count is down to 35.3, creatinine 0.94 Objective - Vital Signs Vital signs: Vital Signs Temp 97.5 F L 02/03/24 08:00 Pulse 91 02/03/24 10:00 Resp 23 02/03/24 10:00 BP 125/91 02/03/24 10:00 Pulse Ox 95 02/03/24 10:00 FiO2 40 01/31/24 20:00 Intake & Output 02/02/24 02/03/24 02/03/24 18:59 06:59 18:59 Intake Total 1670 1200 400 Output Total 595 1140 490 Balance 1075 60 -90 Weight 80.5 kg Intake: IV 950 1200 400 Nafcillin 2 gm In 50 300 100 Dextrose 5% in Water 100 ml @ 50 mls/hr IVPB Q4HR [facility] Rx#:[id number] Sodium Chloride 0.9% 1, 900 900 300 000 ml @ 75 mls/hr IV . [id number] [facility] Rx#:[id number] Oral 720 Output: Chest Tube Drainage 150 Left Left Pleural/ 150 Mediastinal Urine 595 990 490 Other: Voiding Method Indwelling Catheter Indwelling Catheter - Exam GENERAL DESCRIPTION: An elderly male lying in bed in no distress RESPIRATORY SYSTEM: Unlabored breathing , close bedside left side HEART: S1 S2 regular rate and rhythm , ABDOMEN: Soft , no tenderness EXTREMITIES: No edema feet - Labs CBC & Chem 7: 02/03/24 04:38 02/03/24 04:38 Labs: Abnormal Lab Results - Last 24 Hours (Table) 02/02/24 02/03/24 02/03/24 Range/Units 20:02 04:38 04:38 WBC 35.3 H (3.8-10.6) k/uL RBC 3.51 L (4.30-5.90) m/uL Hgb 11.4 L (13.0-17.5) gm/dL Hct 36.2 L (39.0-53.0) % MCV 103.1 H (80.0-100.0) fL Neutrophils # (Manual) 34.95 H (1.3-7.7) k/uL Lymphocytes # (Manual) 0.71 L (1.0-4.8) k/uL Sodium 136 L (137-145) mmol/L Chloride 113 H (98-107) mmol/L BUN 36 H (9-20) mg/dL POC Glucose (mg/dL) 137 H (70-110) mg/dL Calcium 7.2 L (8.4-10.2) mg/dL Total Bilirubin 1.8 H (0.2-1.3) mg/dL Alkaline Phosphatase 228 H (38-126) U/L Total Protein 4.8 L (6.3-8.2) g/dL Albumin 2.0 L (3.5-5.0) g/dL Microbiology - Last 24 Hours (Table) 01/30/24 09:39 Blood Culture - Preliminary Blood Assessment and Plan (1) Bacteremia due to methicillin susceptible Staphylococcus aureus (MSSA) Current Visit: Yes Status: Acute Code(s): R78.81 - BACTEREMIA; B95.61 - ME THICILLIN SUSCEP STAPH INFCT CAUSING DIS CLASSD [id number] SNOMED Code(s): 42 8769695 (2) Pneumonia Current Visit: Yes Status: Acute Code(s): J18.9 - PNEUMONIA, UNSPECIFIED ORGANISM SNOMED Code(s): 890291515 (3) Sepsis Current Visit: Yes Status: Acute Code(s): A41.9 - SEPSIS, UNSPECIFIED ORGANISM SNOMED Code(s): 46748103 Plan: 1patient presented to hospital with sepsis in this patient who did have leukocytosis tachycardia meeting criteria for SIRS source is left lower lobe pneumonia 2-patient with MSSA bacteremia source likely pneumonia, blood culture repeat has been negative so far 3-patient is afebrile, CT of the chest did not show any empyema echocardiogram did not show any valvular abnormalities repeat blood culture negative 4patient did have complication of left-sided pneumothorax s/p is chest tube placement. 5patient white count is trending down patient antibiotics were adjusted to naficillin yesterday will be continued and monitor clinical course closely Dictation was produced using [employer] dictation software. please excuse any grammatical, word or spelling errors. Time with Patient: Less than 30
[2024-02-03 16:24] LABS: Glucose,Whole Blood 103 mg/dL (70-110)
[2024-02-03 20:15] LABS: Glucose,Whole Blood 102 mg/dL (70-110)
[2024-02-04 04:19] LABS: Basophils % (A) 0 %; Eosinophils % (A) 0 %; HCT 34.9 % (39.0-53.0); Lymphocytes # (A) 0.8 k/uL (1.0-4.8); Lymphocytes % (A) 3 %; MCHC 31.6 g/dL (31.0-37.0); MCV 101.3 fL (80.0-100.0); Macrocytosis Slight; Mean Platelet Volume 13.4; Monocytes # (A) 0.4 k/uL (0-1.0); Monocytes % (A) 2 %; Neutrophils # (A) 27.5 k/uL (1.3-7.7); Neutrophils % (A) 95 %; Platelet Count 147 k/uL (150-450); RBC 3.44 m/uL (4.30-5.90); RDW 14.6 % (11.5-15.5); WBC 28.9 k/uL (3.8-10.6)
[2024-02-04 04:32] LABS: ALT 31 U/L (4-49); AST 48 U/L (17-59); African American GFR (CKD) >90 (>60 ml/min/1.73 sqM); Albumin 1.8 g/dL (3.5-5.0); Alkaline Phosphatase 190 U/L (38-126); Anion Gap 2 mmol/L; Blood Urea Nitrogen 30 mg/dL (9-20); Calcium 6.8 mg/dL (8.4-10.2); Carbon Dioxide 23 mmol/L (22-30); Chloride 111 mmol/L (98-107); Glucose 102 mg/dL (74-99); Non-African American GFR(CKD) 81 (>60 ml/min/1.73 sqM); Potassium 3.9 mmol/L (3.5-5.1); Sodium 136 mmol/L (137-145); Total Bilirubin 2.6 mg/dL (0.2-1.3); Total Protein 4.4 g/dL (6.3-8.2)
[2024-02-04 05:21] LABS: RBC Fragments Present; Tear Drop Cells Present
[2024-02-04 06:35] LABS: Glucose,Whole Blood 97 mg/dL (70-110)
--- NOTE | 2024-02-04 07:16 | XR ---
EXAMINATION TYPE: XR chest 1V portable DATE OF EXAM: 02/04/2024 COMPARISON: 02/03/2024 CLINICAL INDICATION: Male, 73 years old with history of Pt. has chest tube; TECHNIQUE: Single frontal view of the chest is obtained. Findings: There is a left chest tube unchanged in position. There is no pneumothorax. Diffuse interstitial process is stable. There is no large pleural effusion. Heart size is normal. The osseous structures are intact IMPRESSION: 1. No change in the position of the left chest tube. There is no pneumothorax. 2. No change in the diffuse predominantly interstitial process. [facility], , 02/04/2024 7:14 AM
--- NOTE | 2024-02-04 11:19 | P.PN ---
Subjective Progress Note Date: 02/04/24 Rodriguez Jackson, is a 73-year-old male who presented to [facility] emergency room with a chief complaint of worsening shortness of breath, patient stated that he fell 2 weeks ago, he was complaining of left-sided rib pain especially when he takes a deep breath. He was also complaining of cough otherwise he denies any complaints. He was evaluated in the emergency room vital examination on presentation revealed a temperature of 98.8 pulse 118 respiration 18 blood pressure 130/78 pulse ox 97% on 10 L nonrebreather mask Laboratory data revealed a white blood count of 20.8 hemoglobin 12.2 platelet count 310 sodium 134 potassium 3.4 chloride 102 BUN 51 creatinine 1.77 AST 188 ALT 135 troponin 0.012 Testing in the emergency room revealed EKG done in the emergency room revealed atrial fibrillation with rapid ventricular response, chest x-ray revealed patchy left and right lower lobe infiltrates worse on the left. Patient was admitted to medical floor for further evaluation and treatment, pulmonary consultation and cardiology consultation were requested. On 01/23/2024 patient was seen and examined on the medical floor he is alert and oriented x 3 in no apparent distress he reports mild improvement in his shortness of breath, he is still complaining of cough and complaining of chest wall pain otherwise he denies any complaints there is no fever or chills no headache or dizziness no nausea or vomiting no abdominal pain no diarrhea no blood in the stools no burning with urination no frequency or urgency and no hematuria. His temperature is 98.8 pulse 108 respiration 26 blood pressure 138/92 pulse ox 91% on 11 L high flow cannula, white blood count is 26.7 hemoglobin 12.8 platelet count 281 BUN 31 creatinine 1.04 On 01/24/2024 patient is alert and oriented x 3. Patient still having some significant shortness of breath currently on 11 L nasal cannula. Cardiology, pu lmonary and infectious disease services are following. Patient remains on Cardizem drip. Patient remains on IV steroids and IV cefazolin. White blood cell 35.7, creatinine 1.18 bun 40. Current vital signs temp 97.8, heart 76, respiratory rate 26, blood pressure 112/73 with a pulse ox of 91% on 11 L On 01/25/2024 patient is alert and oriented x 3 patient reports some improvement with shortness of breath. Pulmonary cardiology and infectious disease services are following. Cardizem dean has been DC'd patient transition to p.o. Cardizekatey per cardiology continue IV antibiotics and steroids at this time.. Current vital signs temp 96.4, heart rate 74, respiratory rate 18, blood pressure 118/83 with a pulse ox of 97% on 10 L high flow. On 01/26/2024 patient was seen and examined on the medical floor he is alert and oriented x 3 in mild respiratory distress, he is maintained on high flow oxygen of 11 L/min, he is still complaining of cough and chest discomfort otherwise he denies any complaints, there is no fever or chills no headache or dizziness no chest pain no nausea or vomiting no abdominal pain no diarrhea no blood in the stools no burning with urination no frequency or urgency and no hematuria. Testing for COVID was positive yesterday. Pulmonary and infectious disease are following. On 01/27/2024 patient is alert and oriented x 3 patient continued to having increase oxygen demands. Per nursing staff pulmonary services were notified patient currently on high flow [address] scan of chest this morning which showed diffuse groundglass opacities and correlation for atypical pneumonia. Patient remains on IV Kefzol and prednisone. Pulmonary and infectious disease services following. Cardiology also following On 01/28/2024 patient is alert and oriented x 3. Patient at this time is resting comfortably in bed. Patient remains on Airvo 60%. Temp 97.6, heart rate 95, respiratory rate 24, blood pressure 100/67. Pulmonary cardiology and infectious disease are following patient remains on IV Kefzol and Solu-Medrol On 01/29/2024 patient was seen and examined on the medical floor he is alert and oriented x 3 in no apparent distress,he is still maintained on high flow oxygen, he is complaining of generalized weakness and complaining of constipation he has very poor oral intake, there is no fever or chills no headache or dizziness no chest pain, he has shortness of breath with any activity no palpitation he has continuous cough no nausea or vomiting no abdominal pain no diarrhea and no urinary symptoms. On 01/30/2024 patient was seen and examined in the ICU, he is alert responsive in no apparent distress maintained on high flow oxygen via Airvo, he was transferred to ICU due to worsening shortness of breath, chest x-ray today revealed interval development of a large left-sided pneumothorax estimated at 40%, he underwent chest tube placement, on the left. His vital exam reveals a temperature of 97.5 pulse 108 respiration 33 blood pressure 133/82 pulse ox is 98% on high flow cannula with FiO2 of 50% On 01/31/2024 patient remains in the intensive care unit. Chest tube in place. Current vital signs temp 97.9, heart rate 84, respiratory rate 23, blood pressure 102/71 with a pulse ox of 97% on high flow of 40%. Patient remains s hort of breath. Patient denies chest pain. Patient denies nausea vomiting or diarrhea. Patient denies any urinary burning or frequency On 02/01/2024 patient is alert and oriented x 3. Patient remains in the intensive care unit. Tube remains in place. Current vital signs temp 97.7, heart rate 79, respiratory rate 24, blood pressure 117/76 with a pulse ox of 100% on 6 L high flow. Patient reports some improvement with shortness of breath. Patient denies chest pain. Patient denies nausea vomiting or diarrhea. On 02/02/2024 patient was seen and examined in the ICU, he is alert and oriented x 3 in no apparent distress, he is complaining of discomfort at the chest tube site, and complaining of shortness of breath otherwise he denies any complaints there is no fever or chills no headache or dizziness, no chest pain, he has occasional cough no nausea or vomiting no abdominal pain no diarrhea no urinary symptoms. Temperature is 97.4 pulse 90 respiration 23 blood pressure 106/78 pulse ox 95% on 4 L nasal cannula, white blood count 45.7 hemoglobin 11.1 platelet count 199 BUN 45 creatinine 0.89 On 02/03/2024 patient remains in the ICU alert and oriented x 3. Patient still has chest tube complaining of some discomfort at site. Speech services at bedside assessing swallow still recommending nectar thick liquids. Current vital signs temp 97.6, heart rate 93, respiratory rate 21. Patient denies chest pain or shortness of breath. Patient denies nausea vomiting or diarrhea. Patient denies any urinary burning and frequency. On 02/04/2024 patient was seen and examined in the intensive care unit, he is alert and oriented in no apparent distress, he is complaining of pain in the chest wall site of the chest tube otherwise he denies any complaints, there is no fever or chills no headache or dizziness no chest pain no shortness of breath no cough no nausea or vomiting no abdominal pain no diarrhea no urinary symptoms, temperature is 97.5 pulse 89 respiration 16 blood pressure 108/68 pulse ox 96% on 4 L nasal cannula. His white blood count is 28.9 hemoglobin 11.0 platelet count 147 sodium 136 potassium 3.9 chloride 111 CO2 23 BUN 30 creatinine 0.94 Objective - Vital Signs Vital signs: Vital Signs Temp 97.5 F L 02/04/24 08:00 Pulse 89 02/04/24 08:00 Resp 16 02/04/24 08:00 BP 108/66 02/04/24 08:00 Pulse Ox 96 02/04/24 08:00 FiO2 40 01/31/24 20:00 Intake & Output 02/03/24 02/04/24 02/04/24 18:59 06:59 18:59 Intake Total 1390 975 375 Output Total 1295 1255 175 Balance 95 -280 200 Weight 80.5 kg 82.6 kg Intake: IV 1150 975 175 Fluconazole in NaCl,Iso- 50 Osm 100 mg In Saline 1 50ml.bag @ 50 mls/hr IVPB DAILY [facility] Rx#:[id number] Nafcillin 2 gm In 200 150 100 Dextrose 5% in Water 100 ml @ 50 mls/hr IVPB Q4HR [facility] Rx#:[id number] Sodium Chloride 0.9% 1, 900 825 75 000 ml @ 75 mls/hr IV . [id number] [facility] Rx#:[id number] Oral 240 200 Output: Chest Tube Drainage 50 30 Left Left Pleural/ 50 30 Mediastinal Urine 1245 1225 175 Other: Voiding Method Indwelling Catheter Indwelling Catheter - Exam In general patient is alert and oriented x 3 in no distress HEENT head normocephalic and atraumatic Neck is supple no JVD no goiter no lymphadenopathy no carotid bruit Chest examination reveals a scattered crackles bilaterally no wheezing Cardiac exam reveals irregular heart sounds S1 and S2 with tachycardia no gallops no murmurs Abdomen is soft nontender no organomegaly with normal bowel sounds Extremity exam reveals no edema no cyanosis or clubbing Neurological examination reveals no gross focal deficits - Labs CBC & Chem 7: 02/04/24 03:39 02/04/24 03:39 Labs: Abnormal Lab Results - Last 24 Hours (Table) 02/03/24 02/04/24 02/04/24 Range/Units 11:54 03:39 03:39 WBC 28.9 H (3.8-10.6) k/uL RBC 3.44 L (4.30-5.90) m/uL Hgb 11.0 L (13.0-17.5) gm/dL Hct 34.9 L (39.0-53.0) % MCV 101.3 H (80.0-100.0) fL Plt Count 147 L (150-450) k/uL Neutrophils # 27.5 H (1.3-7.7) k/uL Lymphocytes # 0.8 L (1.0-4.8) k/uL Sodium 136 L (137-145) mmol/L Chloride 111 H (98-107) mmol/L BUN 30 H (9-20) mg/dL Glucose 102 H (74-99) mg/dL POC Glucose (mg/dL) 138 H (70-110) mg/dL Calcium 6.8 L (8.4-10.2) mg/dL Total Bilirubin 2.6 H (0.2-1.3) mg/dL Alkaline Phosphatase 190 H (38-126) U/L Total Protein 4.4 L (6.3-8.2) g/dL Albumin 1.8 L (3.5-5.0) g/dL Assessment and Plan Assessment: 1. Pneumonia with sepsis as evident by elevated lactic acid and leukocytosis 2. Acute kidney injury secondary to sepsis and dehydration, kidney function improved significantly since admission 3. History of atrial fibrillation maintained on Eliquis, with episodes of rapid ventricular response during this presentation 4. History of CHF 5. Acute hypoxic respiratory failure requiring high flow oxygen supplements pulmonary are following 6. Elevated liver enzymes we will hold statin at this time and recheck 7. Positive blood culture for Staphylococcus aureus, consultation for infectious disease was initiated 8. COVID-19 positive 9. Left-sided pneumothorax requiring left-sided chest tube insertion DVT prophylaxis Eliquis. GI prophylaxis Protonix Pulmonary services consulted, infectious disease cardiology consultation requested echocardiogram ordered Blood and sputum cultures ordered Repeat labs ordered
[2024-02-04 11:27] LABS: Glucose,Whole Blood 114 mg/dL (70-110)
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
--- NOTE | 2024-02-04 15:09 | P.PN ---
Subjective Progress Note Date: 02/04/24 Principal diagnosis: Reason for follow-up is left-sided pneumonia and MSSA bacteremia Patient is a 73-year-old with a past medical history significant for atrial fibrillation heart failure , close head injury patient presenting to the hospital for evaluation of increasing shortness of breath left lower chest pain, patient has been diagnosed with left-sided pneumonia and did have a positive blood culture with MSSA prompted this consultation.Patient did have a chest x-ray morning of 01/30/2024 with evidence of left-sided pneumothorax in this patient who status post chest tube placement on 01/30/2024 by pulmonary On today's evaluation that is 02/04/2024, the patient continues to be afebrile, the patient is on 3 L current oxygen and breathing comfortably, the Pt denies having any chest pain or any worsening cough, the patient denies having any abdominal pain no vomiting or any diarrhea has been reported by the nursing staff. Patient white count is down to 28.9 creatinine 0.94 liver enzymes are normal Objective - Vital Signs Vital signs: Vital Signs Temp 97.7 F 02/04/24 12:00 Pulse 84 02/04/24 14:00 Resp 30 H 02/04/24 14:00 BP 102/74 02/04/24 14:00 Pulse Ox 94 L 02/04/24 14:00 FiO2 40 01/31/24 20:00 Intake & Output 02/03/24 02/04/24 02/04/24 18:59 06:59 18:59 Intake Total 9042 594 8910 Output Total 1295 1255 535 Balance 95 -280 465 Weight 80.5 kg 82.6 kg Intake: IV 1150 975 600 Fluconazole in NaCl,Iso- 50 50 Osm 100 mg In Saline 1 50ml.bag @ 50 mls/hr IVPB DAILY [facility] Rx#:[id number] Nafcillin 2 gm In 200 150 100 Dextrose 5% in Water 100 ml @ 50 mls/hr IVPB Q4HR [facility] Rx#:[id number] Sodium Chloride 0.9% 1, 900 825 450 000 ml @ 75 mls/hr IV . [id number] [facility] Rx#:[id number] Oral 240 400 Output: Chest Tube Drainage 50 30 Left Left Pleural/ 50 30 Mediastinal Urine 1245 1225 535 Other: Voiding Method Indwelling Catheter Indwelling Catheter Indwelling Catheter - Exam GENERAL DESCRIPTION: An elderly male lying in bed in no distress RESPIRATORY SYSTEM: Unlabored breathing , close bedside left side HEART: S1 S2 regular rate and rhythm , ABDOMEN: Soft , no tenderness EXTREMITIES: No edema feet - Labs CBC & Chem 7: 02/04/24 03:39 02/04/24 03:39 Labs: Abnormal Lab Results - Last 24 Hours (Table) 02/04/24 02/04/24 02/04/24 Range/Units 03:39 03:39 11:26 WBC 28.9 H (3.8-10.6) k/uL RBC 3.44 L (4.30-5.90) m/uL Hgb 11.0 L (13.0-17.5) gm/dL Hct 34.9 L (39.0-53.0) % MCV 101.3 H (80.0-100.0) fL Plt Count 147 L (150-450) k/uL Neutrophils # 27.5 H (1.3-7.7) k/uL Lymphocytes # 0.8 L (1.0-4.8) k/uL Sodium 136 L (137-145) mmol/L Chloride 111 H (98-107) mmol/L BUN 30 H (9-20) mg/dL Glucose 102 H (74-99) mg/dL POC Glucose (mg/dL) 114 H (70-110) mg/dL Calcium 6.8 L (8.4-10.2) mg/dL Total Bilirubin 2.6 H (0.2-1.3) mg/dL Alkaline Phosphatase 190 H (38-126) U/L Total Protein 4.4 L (6.3-8.2) g/dL Albumin 1.8 L (3.5-5.0) g/dL Assessment and Plan (1) Bacteremia due to methicillin susceptible Staphylococcus aureus (MSSA) Current Visit: Yes Status: Acute Code(s): R78.81 - BACTEREMIA; B95.61 - METHICILLIN SUSCEP STAPH INFCT CAUSING DIS CLASSD [id number] SNOMED Code(s): 342852361 (2) Pneumonia Current Visit: Yes Status: Acute Code(s): J18.9 - PNEUMONIA, UNSPECIFIED ORGANISM SNOMED Code(s): 770394966 (3) Sepsis Current Visit: Yes Status: Acute Code(s): A41.9 - SEPSIS, UNSPECIFIED ORGANISM SNOMED Code(s): 63417956 Plan: 1patient presented to hospital with sepsis in this patient who did have leukocytosis tachycardia meeting criteria for SIRS source is left lower lobe pneumonia 2-patient with MSSA bacteremia source likely pneumonia, blood culture repeat has been negative so far 3-patient CT of the chest did not show any empyema echocardiogram did not show any valvular abnormalities repeat blood culture negative 4patient did have complication of left-sided pneumothorax s/p is chest tube placement. 5patient remains to be afebrile, the patient white count is trending down to 28,000, patient will be treated naficillin and monitor clinical course closely Dictation was produced using [employer] dictation software. please excuse any grammatical, word or spelling errors. Time with Patient: Less than 30
[2024-02-04 19:48] LABS: Glucose,Whole Blood 112 mg/dL (70-110)
[2024-02-05 06:39] LABS: Glucose,Whole Blood 97 mg/dL (70-110)
--- NOTE | 2024-02-05 06:55 | XR ---
EXAMINATION TYPE: XR chest 1V portable DATE OF EXAM: 02/05/2024 COMPARISON: 02/04/2024 CLINICAL INDICATION: Male, 73 years old with history of chest tube; TECHNIQUE: Single frontal view of the chest is obtained. FINDINGS: The left chest tube is unchanged in position. There is no pneumothorax. There is been no change in the diffuse marked interstitial process. The heart size is normal. There is no pleural effusion. The osseous structures are intact IMPRESSION: 1. Left chest tube unchanged in position. 2. No pneumothorax. 3. No change in the diffuse predominantly interstitial cardiopulmonary process. [facility], , 02/05/2024 6:53 AM
[2024-02-05 07:56] LABS: ALT 34 U/L (4-49); AST 51 U/L (17-59); African American GFR (CKD) 85 (>60 ml/min/1.73 sqM); Albumin 1.9 g/dL (3.5-5.0); Alkaline Phosphatase 199 U/L (38-126); Anion Gap 7 mmol/L; Blood Urea Nitrogen 29 mg/dL (9-20); Calcium 6.9 mg/dL (8.4-10.2); Carbon Dioxide 20 mmol/L (22-30); Chloride 110 mmol/L (98-107); Glucose 71 mg/dL (74-99); Non-African American GFR(CKD) 74 (>60 ml/min/1.73 sqM); Potassium 3.6 mmol/L (3.5-5.1); Sodium 137 mmol/L (137-145); Total Bilirubin 2.7 mg/dL (0.2-1.3); Total Protein 5.3 g/dL (6.3-8.2)
[2024-02-05 08:17] LABS: Basophils # (A) 0.1 k/uL (0-0.2); Basophils % (A) 0 %; Eosinophils # (A) 0.2 k/uL (0-0.7); Eosinophils % (A) 1 %; Hypochromasia Slight; Lymphocytes # (A) 1.3 k/uL (1.0-4.8); Lymphocytes % (A) 4 %; MCH 32.4 pg (25.0-35.0); MCHC 31.5 g/dL (31.0-37.0); MCV 102.8 fL (80.0-100.0); Macrocytosis Slight; Mean Platelet Volume 13.5; Monocytes # (A) 0.6 k/uL (0-1.0); Monocytes % (A) 2 %; Neutrophils # (A) 28.1 k/uL (1.3-7.7); Neutrophils % (A) 92 %; Platelet Count 158 k/uL (150-450); RDW 14.8 % (11.5-15.5); WBC 30.5 k/uL (3.8-10.6)
--- NOTE | 2024-02-05 09:30 | P.PN ---
Subjective Progress Note Date: 02/05/24 Rodriguez Jackson, is a 73-year-old male who presented to [facility] emergency room with a chief complaint of worsening shortness of breath, patient stated that he fell 2 weeks ago, he was complaining of left-sided rib pain especially when he takes a deep breath. He was also complaining of cough otherwise he denies any complaints. He was evaluated in the emergency room vital examination on presentation revealed a temperature of 98.8 pulse 118 respiration 18 blood pressure 130/78 pulse ox 97% on 10 L nonrebreather mask Laboratory data revealed a white blood count of 20.8 hemoglobin 12.2 platelet count 310 sodium 134 potassium 3.4 chloride 102 BUN 51 creatinine 1.77 AST 188 ALT 135 troponin 0.012 Testing in the emergency room revealed EKG done in the emergency room revealed atrial fibrillation with rapid ventricular response, chest x-ray revealed patchy left and right lower lobe infiltrates worse on the left. Patient was admitted to medical floor for further evaluation and treatment, pulmonary consultation and cardiology consultation were requested. On 01/23/2024 patient was seen and examined on the medical floor he is alert and oriented x 3 in no apparent distress he reports mild improvement in his shortness of breath, he is still complaining of cough and complaining of chest wall pain otherwise he denies any complaints there is no fever or chills no headache or dizziness no nausea or vomiting no abdominal pain no diarrhea no blood in the stools no burning with urination no frequency or urgency and no hematuria. His temperature is 98.8 pulse 108 respiration 26 blood pressure 138/92 pulse ox 91% on 11 L high flow cannula, white blood count is 26.7 hemoglobin 12.8 platelet count 281 BUN 31 creatinine 1.04 On 01/24/2024 patient is alert and oriented x 3. Patient still having some significant shortness of breath currently on 11 L nasal cannula. Cardiology, pu lmonary and infectious disease services are following. Patient remains on Cardizem drip. Patient remains on IV steroids and IV cefazolin. White blood cell 35.7, creatinine 1.18 bun 40. Current vital signs temp 97.8, heart 76, respiratory rate 26, blood pressure 112/73 with a pulse ox of 91% on 11 L On 01/25/2024 patient is alert and oriented x 3 patient reports some improvement with shortness of breath. Pulmonary cardiology and infectious disease services are following. Cardizem dean has been DC'd patient transition to p.o. Cardizekatey per cardiology continue IV antibiotics and steroids at this time.. Current vital signs temp 96.4, heart rate 74, respiratory rate 18, blood pressure 118/83 with a pulse ox of 97% on 10 L high flow. On 01/26/2024 patient was seen and examined on the medical floor he is alert and oriented x 3 in mild respiratory distress, he is maintained on high flow oxygen of 11 L/min, he is still complaining of cough and chest discomfort otherwise he denies any complaints, there is no fever or chills no headache or dizziness no chest pain no nausea or vomiting no abdominal pain no diarrhea no blood in the stools no burning with urination no frequency or urgency and no hematuria. Testing for COVID was positive yesterday. Pulmonary and infectious disease are following. On 01/27/2024 patient is alert and oriented x 3 patient continued to having increase oxygen demands. Per nursing staff pulmonary services were notified patient currently on high flow [address] scan of chest this morning which showed diffuse groundglass opacities and correlation for atypical pneumonia. Patient remains on IV Kefzol and prednisone. Pulmonary and infectious disease services following. Cardiology also following On 01/28/2024 patient is alert and oriented x 3. Patient at this time is resting comfortably in bed. Patient remains on Airvo 60%. Temp 97.6, heart rate 95, respiratory rate 24, blood pressure 100/67. Pulmonary cardiology and infectious disease are following patient remains on IV Kefzol and Solu-Medrol On 01/29/2024 patient was seen and examined on the medical floor he is alert and oriented x 3 in no apparent distress,he is still maintained on high flow oxygen, he is complaining of generalized weakness and complaining of constipation he has very poor oral intake, there is no fever or chills no headache or dizziness no chest pain, he has shortness of breath with any activity no palpitation he has continuous cough no nausea or vomiting no abdominal pain no diarrhea and no urinary symptoms. On 01/30/2024 patient was seen and examined in the ICU, he is alert responsive in no apparent distress maintained on high flow oxygen via Airvo, he was transferred to ICU due to worsening shortness of breath, chest x-ray today revealed interval development of a large left-sided pneumothorax estimated at 40%, he underwent chest tube placement, on the left. His vital exam reveals a temperature of 97.5 pulse 108 respiration 33 blood pressure 133/82 pulse ox is 98% on high flow cannula with FiO2 of 50% On 01/31/2024 patient remains in the intensive care unit. Chest tube in place. Current vital signs temp 97.9, heart rate 84, respiratory rate 23, blood pressure 102/71 with a pulse ox of 97% on high flow of 40%. Patient remains s hort of breath. Patient denies chest pain. Patient denies nausea vomiting or diarrhea. Patient denies any urinary burning or frequency On 02/01/2024 patient is alert and oriented x 3. Patient remains in the intensive care unit. Tube remains in place. Current vital signs temp 97.7, heart rate 79, respiratory rate 24, blood pressure 117/76 with a pulse ox of 100% on 6 L high flow. Patient reports some improvement with shortness of breath. Patient denies chest pain. Patient denies nausea vomiting or diarrhea. On 02/02/2024 patient was seen and examined in the ICU, he is alert and oriented x 3 in no apparent distress, he is complaining of discomfort at the chest tube site, and complaining of shortness of breath otherwise he denies any complaints there is no fever or chills no headache or dizziness, no chest pain, he has occasional cough no nausea or vomiting no abdominal pain no diarrhea no urinary symptoms. Temperature is 97.4 pulse 90 respiration 23 blood pressure 106/78 pulse ox 95% on 4 L nasal cannula, white blood count 45.7 hemoglobin 11.1 platelet count 199 BUN 45 creatinine 0.89 On 02/03/2024 patient remains in the ICU alert and oriented x 3. Patient still has chest tube complaining of some discomfort at site. Speech services at bedside assessing swallow still recommending nectar thick liquids. Current vital signs temp 97.6, heart rate 93, respiratory rate 21. Patient denies chest pain or shortness of breath. Patient denies nausea vomiting or diarrhea. Patient denies any urinary burning and frequency. On 02/04/2024 patient was seen and examined in the intensive care unit, he is alert and oriented in no apparent distress, he is complaining of pain in the chest wall site of the chest tube otherwise he denies any complaints, there is no fever or chills no headache or dizziness no chest pain no shortness of breath no cough no nausea or vomiting no abdominal pain no diarrhea no urinary symptoms, temperature is 97.5 pulse 89 respiration 16 blood pressure 108/68 pulse ox 96% on 4 L nasal cannula. His white blood count is 28.9 hemoglobin 11.0 platelet count 147 sodium 136 potassium 3.9 chloride 111 CO2 23 BUN 30 creatinine 0.94 On 02/05/2024 patient remains in the intensive care unit alert and oriented 3. Patient is down to 2 L. Chest tube remains in place.Patient's appetite remains poor patient has been started on Megace. Will consult when necessary for possible discharge planning. Patient denies chest pain or shortness breath. Patient denies nausea vomiting or diarrhea. Patient denies any urinary burning or frequency. Current vital signs temp 97.6, heart rate 80, respiratory rate 19,, Blood pressure 98/70 with pulse ox 95% on 2 L Objective - Vital Signs Vital signs: Vital Signs Temp 97.6 F 02/05/24 04:00 Pulse 88 02/05/24 07:00 Resp 21 02/05/24 07:00 BP 106/73 02/05/24 07:00 Pulse Ox 96 02/05/24 07:00 FiO2 40 01/31/24 20:00 Intake & Output 02/04/24 02/05/24 02/05/24 18:59 06:59 18:59 Intake Total 1368 1050 75 Output Total 735 661 45 Balance 633 389 30 Weight 85.4 kg Intake: IV 850 900 75 Fluconazole in NaCl,Iso- 50 Osm 100 mg In Saline 1 50ml.bag @ 50 mls/hr IVPB DAILY [facility] Rx#:[id number] Nafcillin 2 gm In 200 Dextrose 5% in Water 100 ml @ 50 mls/hr IVPB Q4HR [facility] Rx#:[id number] Sodium Chloride 0.9% 1, 600 900 75 000 ml @ 75 mls/hr IV . [id number] [facility] Rx#:[id number] Intake, IV Titration 150 Amount Nafcillin 2 gm In 150 Dextrose 5% in Water 100 ml @ 50 mls/hr IVPB Q4HR [facility] Rx#:[id number] Oral 518 Output: Chest Tube Drainage 31 Left Left Pleural/ 31 Mediastinal Urine 735 630 45 Other: Voiding Method Indwelling Catheter Indwelling Catheter - Exam In general patient is alert and oriented x 3 in no distress HEENT head normocephalic and atraumatic Neck is supple no JVD no goiter no lymphadenopathy no carotid bruit Chest examination reveals a scattered crackles bilaterally no wheezing Cardiac exam reveals irregular heart sounds S1 and S2 with tachycardia no gallops no murmurs Abdomen is soft nontender no organomegaly with normal bowel sounds Extremity exam reveals no edema no cyanosis or clubbing Neurological examination reveals no gross focal deficits - Labs CBC & Chem 7: 02/05/24 06:26 02/05/24 06:26 Labs: Abnormal Lab Results - Last 24 Hours (Table) 02/04/24 02/04/24 02/05/24 Range/Units 11:26 19:47 06:26 WBC 30.5 H (3.8-10.6) k/uL RBC 3.70 L (4.30-5.90) m/uL Hgb 12.0 L (13.0-17.5) gm/dL Hct 38.0 L (39.0-53.0) % MCV 102.8 H (80.0-100.0) fL Neutrophils # 28.1 H (1.3-7.7) k/uL Chloride (98-107) mmol/L Carbon Dioxide (22-30) mmol/L BUN (9-20) mg/dL Glucose (74-99) mg/dL POC Glucose (mg/dL) 114 H 112 H (70-110) mg/dL Calcium (8.4-10.2) mg/dL Total Bilirubin (0.2-1.3) mg/dL Alkaline Phosphatase (38-126) U/L Total Protein (6.3-8.2) g/dL Albumin (3.5-5.0) g/dL 02/05/24 Range/Units 06:26 WBC (3.8-10.6) k/uL RBC (4.30-5.90) m/uL Hgb (13.0-17.5) gm/dL Hct (39.0-53.0) % MCV (80.0-100.0) fL Neutrophils # (1.3-7.7) k/uL Chloride 110 H (98-107) mmol/L Carbon Dioxide 20 L (22-30) mmol/L BUN 29 H (9-20) mg/dL Glucose 71 L (74-99) mg/dL POC Glucose (mg/dL) (70-110) mg/dL Calcium 6.9 L (8.4-10.2) mg/dL Total Bilirubin 2.7 H (0.2-1.3) mg/dL Alkaline Phosphatase 199 H (38-126) U/L Total Protein 5.3 L (6.3-8.2) g/dL Albumin 1.9 L (3.5-5.0) g/dL Microbiology - Last 24 Hours (Table) 01/30/24 09:39 Blood Culture - Final Blood Assessment and Plan Assessment: 1. Pneumonia with sepsis as evident by elevated lactic acid and leukocytosis 2. Acute kidney injury secondary to sepsis and dehydration, kidney function improved significantly since admission 3. History of atrial fibrillation maintained on Eliquis, with episodes of rapid ventricular response during this presentation 4. History of CHF 5. Acute hypoxic respiratory failure requiring high flow oxygen supplements pulmonary are following 6. Elevated liver enzymes we will hold statin at this time and recheck 7. Positive blood culture for Staphylococcus aureus, consultation for infectious disease was initiated 8. COVID-19 positive 9. Left-sided pneumothorax requiring left-sided chest tube insertion DVT prophylaxis Eliquis. GI prophylaxis Protonix Pulmonary services consulted, infectious disease cardiology consultation requested echocardiogram ordered Blood and sputum cultures ordered Repeat labs ordered
[2024-02-05] MEDS: POTASSIUM CHLORIDE ER 20 MEQ TAB.ER PO SCH (12:26)
[2024-02-05 12:31] LABS: Glucose,Whole Blood 105 mg/dL (70-110)
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
--- NOTE | 2024-02-05 12:59 | P.PN ---
Subjective Progress Note Date: 02/05/24 Principal diagnosis: Reason for follow-up is left-sided pneumonia and MSSA bacteremia Patient is a 73-year-old with a past medical history significant for atrial fibrillation heart failure , close head injury patient presenting to the hospital for evaluation of increasing shortness of breath left lower chest pain, patient has been diagnosed with left-sided pneumonia and did have a positive blood culture with MSSA prompted this consultation.Patient did have a chest x-ray morning of 01/30/2024 with evidence of left-sided pneumothorax in this patient who status post chest tube placement on 01/30/2024 by pulmonary On today's evaluation that is 02/05/2024, Patient is afebrile patient is currently on 2 L nasal cannula oxygen denies having any worsening shortness of breath, the patient denies any chest pain and cough is decreased in intensity, the patient denies any nausea vomiting did not have any abdominal pain and no diarrhea. Patient white count is slightly up to 30,000 today completed 28.9 yesterday 81.01 blood culture repeat has been negative Objective - Vital Signs Vital signs: Vital Signs Temp 97.4 F L 02/05/24 08:00 Pulse 78 02/05/24 12:00 Resp 19 02/05/24 12:00 BP 96/74 02/05/24 12:00 Pulse Ox 95 02/05/24 12:00 FiO2 40 01/31/24 20:00 Intake & Output 02/04/24 02/05/24 02/05/24 18:59 06:59 18:59 Intake Total 1368 1050 368 Output Total 735 661 195 Balance 633 389 173 Weight 85.4 kg Intake: IV 850 900 250 Fluconazole in NaCl,Iso- 50 Osm 100 mg In Saline 1 50ml.bag @ 50 mls/hr IVPB DAILY [facility] Rx#:[id number] Nafcillin 2 gm In 200 100 Dextrose 5% in Water 100 ml @ 50 mls/hr IVPB Q4HR [facility] Rx#:[id number] Sodium Chloride 0.9% 1, 600 900 150 000 ml @ 75 mls/hr IV . [id number] [facility] Rx#:[id number] Intake, IV Titration 150 Amount Nafcillin 2 gm In 150 Dextrose 5% in Water 100 ml @ 50 mls/hr IVPB Q4HR [facility] Rx#:[id number] Oral 518 118 Output: Chest Tube Drainage 31 Left Left Pleural/ 31 Mediastinal Urine 735 630 195 Other: Voiding Method Indwelling Catheter Indwelling Catheter Indwelling Catheter - Exam GENERAL DESCRIPTION: An elderly male lying in bed in no distress RESPIRATORY SYSTEM: Unlabored breathing , close bedside left side HEART: S1 S2 regular rate and rhythm , ABDOMEN: Soft , no tenderness EXTREMITIES: No edema feet - Labs CBC & Chem 7: 02/05/24 06:26 02/05/24 06:26 Labs: Abnormal Lab Results - Last 24 Hours (Table) 02/04/24 02/05/24 02/05/24 Range/Units 19:47 06:26 06:26 WBC 30.5 H (3.8-10.6) k/uL RBC 3.70 L (4.30-5.90) m/uL Hgb 12.0 L (13.0-17.5) gm/dL Hct 38.0 L (39.0-53.0) % MCV 102.8 H (80.0-100.0) fL Neutrophils # 28.1 H (1.3-7.7) k/uL Chloride 110 H (98-107) mmol/L Carbon Dioxide 20 L (22-30) mmol/L BUN 29 H (9-20) mg/dL Glucose 71 L (74-99) mg/dL POC Glucose (mg/dL) 112 H (70-110) mg/dL Calcium 6.9 L (8.4-10.2) mg/dL Total Bilirubin 2.7 H (0.2-1.3) mg/dL Alkaline Phosphatase 199 H (38-126) U/L Total Protein 5.3 L (6.3-8.2) g/dL Albumin 1.9 L (3.5-5.0) g/dL Microbiology - Last 24 Hours (Table) 01/30/24 09:39 Blood Culture - Final Blood Assessment and Plan (1) Bacteremia due to methicillin susceptible Staphylococcus aureus (MSSA) Current Visit: Yes Status: Acute Code(s): R78.81 - BACTEREMIA; B95.61 - METHICILLIN SUSCEP STAPH INFCT CAUSING DIS CLASSD [id number] SNOMED Code(s): 756058675 (2) Pneumonia Current Visit: Yes Status: Acute Code(s): J18.9 - PNEUMONIA, UNSPECIFIED ORGANISM SNOMED Code(s): 047001700 (3) Sepsis Current Visit: Yes Status: Acute Code(s): A41.9 - SEPSIS, UNSPECIFIED ORGANISM SNOMED Code(s): 15005874 Plan: 1patient presented to hospital with sepsis in this patient who did have leukocytosis tachycardia meeting criteria for SIRS source is left lower lobe pneumonia 2-patient with MSSA bacteremia source likely pneumonia, blood culture repeat has been negative so far 3-patient CT of the chest did not show any empyema echocardiogram did not show any valvular abnormalities repeat blood culture negative 4patient did have complication of left-sided pneumothorax s/p is chest tube placement. 5patient remains to be afebrile, the patient white count is slightly up today I will continue naficillin add oral Flagyl empirically and see clinical response Dictation was produced using [employer] dictation software. please excuse any gra mmatical, word or spelling errors. Time with Patient: Less than 30
[2024-02-05] MEDS: metroNIDAZOLE 500 MG TAB PO SCH (15:19)
[2024-02-05 16:41] LABS: Glucose,Whole Blood 136 mg/dL (70-110)
[2024-02-05 20:03] LABS: Glucose,Whole Blood 101 mg/dL (70-110)
[2024-02-06 06:29] LABS: Glucose,Whole Blood 95 mg/dL (70-110)
[2024-02-06 07:20] LABS: Basophils % (A) 0 %; Eosinophils # (A) 0.3 k/uL (0-0.7); Eosinophils % (A) 1 %; HCT 35.9 % (39.0-53.0); HGB 11.5 gm/dL (13.0-17.5); Lymphocytes # (A) 1.3 k/uL (1.0-4.8); Lymphocytes % (A) 4 %; MCH 31.9 pg (25.0-35.0); MCHC 31.9 g/dL (31.0-37.0); MCV 99.8 fL (80.0-100.0); Macrocytosis Slight; Mean Platelet Volume 13.9; Monocytes # (A) 0.9 k/uL (0-1.0); Monocytes % (A) 3 %; Neutrophils % (A) 91 %; Platelet Count 169 k/uL (150-450); RBC 3.59 m/uL (4.30-5.90); RDW 14.8 % (11.5-15.5); WBC 30.6 k/uL (3.8-10.6)
[2024-02-06 07:34] LABS: ALT 34 U/L (4-49); AST 48 U/L (17-59); African American GFR (CKD) >90 (>60 ml/min/1.73 sqM); Albumin 1.8 g/dL (3.5-5.0); Alkaline Phosphatase 194 U/L (38-126); Anion Gap 0 mmol/L; Blood Urea Nitrogen 27 mg/dL (9-20); C Reactive Protein 5.4 mg/dL (<1.0); Calcium 6.8 mg/dL (8.4-10.2); Carbon Dioxide 21 mmol/L (22-30); Chloride 113 mmol/L (98-107); Glucose 74 mg/dL (74-99); Non-African American GFR(CKD) 80 (>60 ml/min/1.73 sqM); Potassium 3.6 mmol/L (3.5-5.1); Sodium 134 mmol/L (137-145); Total Bilirubin 2.7 mg/dL (0.2-1.3); Total Protein 4.6 g/dL (6.3-8.2)
[2024-02-06 11:38] LABS: Glucose,Whole Blood 119 mg/dL (70-110)
--- NOTE | 2024-02-06 14:09 | CT ---
EXAMINATION TYPE: CT angio chest CT DLP: 308.6 mGycm, Automated exposure control for dose reduction was used. DATE OF EXAM: 02/06/2024 1:54 PM COMPARISON: Multiple chest radiographs with most recent 02/05/2024, CT chest 01/26/2024, CT chest abdo men pelvis 04/30/2019 CLINICAL INDICATION:Male, 73 years old with history of Hypoxemia, covid; HYPOXIA, COVID TECHNIQUE/CONTRAST: CTA scan of the thorax is performed with IV Contrast, patient injected with 100 mL of Isovue 370, pul monary embolism protocol. MIP images are created and reviewed. FINDINGS: Pulmonary Artery: There is no evidence for a filling defect within the pulmonary vasculature to sugge st acute pulmonary embolism. The pulmonary artery is of normal size. Lungs/Pleura: Moderate sized left pleural effusion with associated atelectasis. Left anterior small t o moderate size pneumothorax with a left-sided chest tube identified with tip in the apex. Scattered patchy reticular groundglass opacities throughout the lungs which is increased from prior exam. Small right pleural effusion. Lower lobe 1.5 cm solid pulmonary nodule (series 406, image 86). Relatively stable dating back to 2019 Airway: Large airways are patent. Heart: Heart is within normal limits for size.. No pericardial effusion. Coronary artery calcificatio ns. Vasculature: No evidence of aortic aneurysm. Mediastinum: A few mildly prominent mediastinal lymph nodes identified. Musculoskeletal: No acute osseous abnormalities Soft Tissues: Diffuse anasarca. Left lateral chest wall trace subcutaneous emphysema likely related t o chest tube placement. Lower neck: No significant findings. Upper Abdomen: Nonspecific hyperdense appearance to the liver. Ascites demonstrated. Cholelithiasis. Atrophic appearance to the spleen. IMPRESSION: 1. No evidence of pulmonary embolism. 2. Small to moderate-sized left pneumothorax with chest tube in place. 3. Increased diffuse reticular groundglass opacities throughout the lungs suggesting atypical pneumon ia and/or acute respiratory distress syndrome. 4. Similar moderate left and small right pleural effusions with associated atelectasis. Diffuse anasa rca with ascites demonstrated. Findings suggest volume overload. 5. Stable left lower lobe 1.5 cm solid pulmonary nodule dating back to at least 2019. 6. Cholelithiasis. [facility], , 02/06/2024 2:07 PM
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
[2024-02-06 16:34] LABS: Glucose,Whole Blood 108 mg/dL (70-110)
--- NOTE | 2024-02-06 18:15 | P.PN ---
Subjective Progress Note Date: 02/06/24 Rodriguez Jackson, is a 73-year-old male who presented to [facility] emergency room with a chief complaint of worsening shortness of breath, patient stated that he fell 2 weeks ago, he was complaining of left-sided rib pain especially when he takes a deep breath. He was also complaining of cough otherwise he denies any complaints. He was evaluated in the emergency room vital examination on presentation revealed a temperature of 98.8 pulse 118 respiration 18 blood pressure 130/78 pulse ox 97% on 10 L nonrebreather mask Laboratory data revealed a white blood count of 20.8 hemoglobin 12.2 platelet count 310 sodium 134 potassium 3.4 chloride 102 BUN 51 creatinine 1.77 AST 188 ALT 135 troponin 0.012 Testing in the emergency room revealed EKG done in the emergency room revealed atrial fibrillation with rapid ventricular response, chest x-ray revealed patchy left and right lower lobe infiltrates worse on the left. Patient was admitted to medical floor for further evaluation and treatment, pulmonary consultation and cardiology consultation were requested. On 01/23/2024 patient was seen and examined on the medical floor he is alert and oriented x 3 in no apparent distress he reports mild improvement in his shortness of breath, he is still complaining of cough and complaining of chest wall pain otherwise he denies any complaints there is no fever or chills no headache or dizziness no nausea or vomiting no abdominal pain no diarrhea no blood in the stools no burning with urination no frequency or urgency and no hematuria. His temperature is 98.8 pulse 108 respiration 26 blood pressure 138/92 pulse ox 91% on 11 L high flow cannula, white blood count is 26.7 hemoglobin 12.8 platelet count 281 BUN 31 creatinine 1.04 On 01/24/2024 patient is alert and oriented x 3. Patient still having some significant shortness of breath currently on 11 L nasal cannula. Cardiology, pu lmonary and infectious disease services are following. Patient remains on Cardizem drip. Patient remains on IV steroids and IV cefazolin. White blood cell 35.7, creatinine 1.18 bun 40. Current vital signs temp 97.8, heart 76, respiratory rate 26, blood pressure 112/73 with a pulse ox of 91% on 11 L On 01/25/2024 patient is alert and oriented x 3 patient reports some improvement with shortness of breath. Pulmonary cardiology and infectious disease services are following. Cardizem dean has been DC'd patient transition to p.o. Cardizekatey per cardiology continue IV antibiotics and steroids at this time.. Current vital signs temp 96.4, heart rate 74, respiratory rate 18, blood pressure 118/83 with a pulse ox of 97% on 10 L high flow. On 01/26/2024 patient was seen and examined on the medical floor he is alert and oriented x 3 in mild respiratory distress, he is maintained on high flow oxygen of 11 L/min, he is still complaining of cough and chest discomfort otherwise he denies any complaints, there is no fever or chills no headache or dizziness no chest pain no nausea or vomiting no abdominal pain no diarrhea no blood in the stools no burning with urination no frequency or urgency and no hematuria. Testing for COVID was positive yesterday. Pulmonary and infectious disease are following. On 01/27/2024 patient is alert and oriented x 3 patient continued to having increase oxygen demands. Per nursing staff pulmonary services were notified patient currently on high flow [address] scan of chest this morning which showed diffuse groundglass opacities and correlation for atypical pneumonia. Patient remains on IV Kefzol and prednisone. Pulmonary and infectious disease services following. Cardiology also following On 01/28/2024 patient is alert and oriented x 3. Patient at this time is resting comfortably in bed. Patient remains on Airvo 60%. Temp 97.6, heart rate 95, respiratory rate 24, blood pressure 100/67. Pulmonary cardiology and infectious disease are following patient remains on IV Kefzol and Solu-Medrol On 01/29/2024 patient was seen and examined on the medical floor he is alert and oriented x 3 in no apparent distress,he is still maintained on high flow oxygen, he is complaining of generalized weakness and complaining of constipation he has very poor oral intake, there is no fever or chills no headache or dizziness no chest pain, he has shortness of breath with any activity no palpitation he has continuous cough no nausea or vomiting no abdominal pain no diarrhea and no urinary symptoms. On 01/30/2024 patient was seen and examined in the ICU, he is alert responsive in no apparent distress maintained on high flow oxygen via Airvo, he was transferred to ICU due to worsening shortness of breath, chest x-ray today revealed interval development of a large left-sided pneumothorax estimated at 40%, he underwent chest tube placement, on the left. His vital exam reveals a temperature of 97.5 pulse 108 respiration 33 blood pressure 133/82 pulse ox is 98% on high flow cannula with FiO2 of 50% On 01/31/2024 patient remains in the intensive care unit. Chest tube in place. Current vital signs temp 97.9, heart rate 84, respiratory rate 23, blood pressure 102/71 with a pulse ox of 97% on high flow of 40%. Patient remains s hort of breath. Patient denies chest pain. Patient denies nausea vomiting or diarrhea. Patient denies any urinary burning or frequency On 02/01/2024 patient is alert and oriented x 3. Patient remains in the intensive care unit. Tube remains in place. Current vital signs temp 97.7, heart rate 79, respiratory rate 24, blood pressure 117/76 with a pulse ox of 100% on 6 L high flow. Patient reports some improvement with shortness of breath. Patient denies chest pain. Patient denies nausea vomiting or diarrhea. On 02/02/2024 patient was seen and examined in the ICU, he is alert and oriented x 3 in no apparent distress, he is complaining of discomfort at the chest tube site, and complaining of shortness of breath otherwise he denies any complaints there is no fever or chills no headache or dizziness, no chest pain, he has occasional cough no nausea or vomiting no abdominal pain no diarrhea no urinary symptoms. Temperature is 97.4 pulse 90 respiration 23 blood pressure 106/78 pulse ox 95% on 4 L nasal cannula, white blood count 45.7 hemoglobin 11.1 platelet count 199 BUN 45 creatinine 0.89 On 02/03/2024 patient remains in the ICU alert and oriented x 3. Patient still has chest tube complaining of some discomfort at site. Speech services at bedside assessing swallow still recommending nectar thick liquids. Current vital signs temp 97.6, heart rate 93, respiratory rate 21. Patient denies chest pain or shortness of breath. Patient denies nausea vomiting or diarrhea. Patient denies any urinary burning and frequency. On 02/04/2024 patient was seen and examined in the intensive care unit, he is alert and oriented in no apparent distress, he is complaining of pain in the chest wall site of the chest tube otherwise he denies any complaints, there is no fever or chills no headache or dizziness no chest pain no shortness of breath no cough no nausea or vomiting no abdominal pain no diarrhea no urinary symptoms, temperature is 97.5 pulse 89 respiration 16 blood pressure 108/68 pulse ox 96% on 4 L nasal cannula. His white blood count is 28.9 hemoglobin 11.0 platelet count 147 sodium 136 potassium 3.9 chloride 111 CO2 23 BUN 30 creatinine 0.94 On 02/05/2024 patient remains in the intensive care unit alert and oriented 3. Patient is down to 2 L. Chest tube remains in place.Patient's appetite remains poor patient has been started on Megace. Will consult when necessary for possible discharge planning. Patient denies chest pain or shortness breath. Patient denies nausea vomiting or diarrhea. Patient denies any urinary burning or frequency. Current vital signs temp 97.6, heart rate 80, respiratory rate 19,, Blood pressure 98/70 with pulse ox 95% on 2 L On 02/06/2024 patient was seen and examined on the telemetry floor, he is alert and oriented x 3. Current vital signs temp 97.9, heart rate 93, respiratory rate 18. blood pressure 122/60 Patient denies chest pain or shortness of breath. Patient denies nausea vomiting or diarrhea. Patient denies any urinary burning and frequency. Objective - Vital Signs Vital signs: Vital Signs Temp 97.4 F L 02/06/24 03:48 Pulse 89 02/06/24 03:48 Resp 18 02/06/24 03:48 BP 116/72 02/06/24 03:48 Pulse Ox 95 02/06/24 03:48 FiO2 40 01/31/24 20:00 Intake & Output 02/05/24 02/06/24 02/06/24 18:59 06:59 18:59 Intake Total 368 Output Total 195 495 Balance 173 -495 Intake: IV 250 Nafcillin 2 gm In 100 Dextrose 5% in Water 100 ml @ 50 mls/hr IVPB Q4HR TRENT Rx#:[id number] Sodium Chloride 0.9% 1, 150 000 ml @ 75 mls/hr IV . [id number] [facility]ENT Rx#:[id number] Oral 118 Output: Chest Tube Drainage 20 Left Left Pleural/ 20 Mediastinal Urine 195 475 Other: Voiding Method Indwelling Catheter Indwelling Catheter - Exam In general patient is alert and oriented x 3 in no distress HEENT head normocephalic and atraumatic Neck is supple no JVD no goiter no lymphadenopathy no carotid bruit Chest examination reveals a scattered crackles bilaterally no wheezing Cardiac exam reveals irregular heart sounds S1 and S2 with tachycardia no gallops no murmurs Abdomen is soft nontender no organomegaly with normal bowel sounds Extremity exam reveals no edema no cyanosis or clubbing Neurological examination reveals no gross focal deficits - Labs CBC & Chem 7: 02/06/24 06:51 02/06/24 06:51 Labs: Abnormal Lab Results - Last 24 Hours (Table) 02/05/24 02/05/24 02/05/24 Range/Units 06:26 06:26 16:39 WBC 30.5 H (3.8-10.6) k/uL RBC 3.70 L (4.30-5.90) m/uL Hgb 12.0 L (13.0-17.5) gm/dL Hct 38.0 L (39.0-53.0) % MCV 102.8 H (80.0-100.0) fL Neutrophils # 28.1 H (1.3-7.7) k/uL Chloride 110 H (98-107) mmol/L Carbon Dioxide 20 L (22-30) mmol/L BUN 29 H (9-20) mg/dL Glucose 71 L (74-99) mg/dL POC Glucose (mg/dL) 136 H (70-110) mg/dL Calcium 6.9 L (8.4-10.2) mg/dL Total Bilirubin 2.7 H (0.2-1.3) mg/dL Alkaline Phosphatase 199 H (38-126) U/L Total Protein 5.3 L (6.3-8.2) g/dL Albumin 1.9 L (3.5-5.0) g/dL Assessment and Plan Assessment: 1. Pneumonia with sepsis as evident by elevated lactic acid and leukocytosis 2. Acute kidney injury secondary to sepsis and dehydration, kidney function improved significantly since admission 3. History of atrial fibrillation maintained on Eliquis, with episodes of rapid ventricular response during this presentation 4. History of CHF 5. Acute hypoxic respiratory failure requiring high flow oxygen supplements pulmonary are following 6. Elevated liver enzymes we will hold statin at this time and recheck 7. Positive blood culture for Staphylococcus aureus, consultation for infectiou s disease was initiated 8. COVID-19 positive 9. Left-sided pneumothorax requiring left-sided chest tube insertion DVT prophylaxis Eliquis. GI prophylaxis Protonix Pulmonary services consulted, infectious disease cardiology consultation requested echocardiogram ordered Blood and sputum cultures ordered Repeat labs ordered
[2024-02-06 20:01] LABS: Glucose,Whole Blood 127 mg/dL (70-110)
[2024-02-07 06:31] LABS: Glucose,Whole Blood 108 mg/dL (70-110)
--- NOTE | 2024-02-07 08:31 | XR ---
EXAMINATION TYPE: XR chest 1V portable DATE OF EXAM: 02/07/2024 7:17 AM COMPARISON: 02/05/2024 CLINICAL INDICATION: Male, 73 years old with history of pneumothorax, , FINDINGS: Heart mildly enlarged. Diffuse interstitial and patchy opacities, right greater than left persist but with some improvement on the right. Apically directed left-sided chest tube in place. No appreciable pneumothorax. Some density along the periphery of the left mid chest likely superimposition shadow. Patient rotated towards the right. Nodular density at the left base redemonstrated. IMPRESSION: 1. Left-sided chest tube in place. No appreciable pneumothorax. 2. Interstitial and patchy opacities persist, right greater than left, though now with some improveme nt on the right. 3. Nodular density redemonstrated at the left base. Attention on follow-up. [facility], , 02/07/2024 8:29 AM
--- NOTE | 2024-02-07 08:46 | P.PN ---
Subjective Progress Note Date: 02/06/24 Principal diagnosis: Reason for follow-up is left-sided pneumonia and MSSA bacteremia Patient is a 73-year-old with a past medical history significant for atrial fibrillation heart failure , close head injury patient presenting to the hospital for evaluation of increasing shortness of breath left lower chest pain, patient has been diagnosed with left-sided pneumonia and did have a positive blood culture with MSSA prompted this consultation.Patient did have a chest x-ray morning of 01/30/2024 with evidence of left-sided pneumothorax in this patient who status post chest tube placement on 01/30/2024 by pulmonary On today's evaluation that is 02/06/2024, patient has been afebrile, patient is breathing slightly comfortably and is currently on 3 L current oxygen patient denies having any worsening cough no chest pain, patient denies nausea vomiting or diarrhea and no abdominal pain. Patient white count is 30.6 creatinine 0.95 blood culture repeat has been negative Objective - Vital Signs Vital signs: Vital Signs Temp 97.9 F 02/06/24 12:47 Pulse 93 02/06/24 12:47 Resp 18 02/06/24 12:47 BP 106/67 02/06/24 12:47 Pulse Ox 93 L 02/06/24 12:47 FiO2 40 01/31/24 20:00 Intake & Output 02/05/24 02/06/24 02/06/24 18:59 06:59 18:59 Intake Total 368 Output Total 195 495 600 Balance 173 -495 -600 Intake: IV 250 Nafcillin 2 gm In 100 Dextrose 5% in Water 100 ml @ 50 mls/hr IVPB Q4HR [facility]ENT Rx#:[id number] Sodium Chloride 0.9% 1, 150 000 ml @ 75 mls/hr IV . [id number] [facility]ENT Rx#:[id number] Oral 118 Output: Chest Tube Drainage 20 Left Left Pleural/ 20 Mediastinal Urine 195 475 600 Other: Voiding Method Indwelling Catheter Indwelling Catheter Indwelling Catheter # Bowel Movements 1 - Exam GENERAL DESCRIPTION: An elderly male lying in bed in no distress RESPIRATORY SYSTEM: Unlabored breathing , close bedside left side HEART: S1 S2 regular rate and rhythm , ABDOMEN: Soft , no tenderness EXTREMITIES: No edema feet - Labs CBC & Chem 7: 02/06/24 06:51 02/06/24 06:51 Labs: Abnormal Lab Results - Last 24 Hours (Table) 02/05/24 02/06/24 02/06/24 Range/Units 16:39 06:51 06:51 WBC 30.6 H (3.8-10.6) k/uL RBC 3.59 L (4.30-5.90) m/uL Hgb 11.5 L (13.0-17.5) gm/dL Hct 35.9 L (39.0-53.0) % Neutrophils # 28.0 H (1.3-7.7) k/uL Sodium 134 L (137-145) mmol/L Chloride 113 H (98-107) mmol/L Carbon Dioxide 21 L (22-30) mmol/L BUN 27 H (9-20) mg/dL POC Glucose (mg/dL) 136 H (70-110) mg/dL Calcium 6.8 L (8.4-10.2) mg/dL Total Bilirubin 2.7 H (0.2-1.3) mg/dL Alkaline Phosphatase 194 H (38-126) U/L C-Reactive Protein 5.4 H (<1.0) mg/dL Total Protein 4.6 L (6.3-8.2) g/dL Albumin 1.8 L (3.5-5.0) g/dL 02/06/24 Range/Units 11:35 WBC (3.8-10.6) k/uL RBC (4.30-5.90) m/uL Hgb (13.0-17.5) gm/dL Hct (39.0-53.0) % Neutrophils # (1.3-7.7) k/uL Sodium (137-145) mmol/L Chloride (98-107) mmol/L Carbon Dioxide (22-30) mmol/L BUN (9-20) mg/dL POC Glucose (mg/dL) 119 H (70-110) mg/dL Calcium (8.4-10.2) mg/dL Total Bilirubin (0.2-1.3) mg/dL Alkaline Phosphatase (38-126) U/L C-Reactive Protein (<1.0) mg/dL Total Protein (6.3-8.2) g/dL Albumin (3.5-5.0) g/dL Assessment and Plan (1) Bacteremia due to methicillin susceptible Staphylococcus aureus (MSSA) Current Visit: Yes Status: Acute Code(s): R78.81 - BACTEREMIA; B95.61 - METHICILLIN SUSCEP STAPH INFCT CAUSING DIS CLASSD [id number] SNOMED Code(s): 660293668 (2) Pneumonia Current Visit: Yes Status: Acute Code(s): J18.9 - PNEUMONIA, UNSPECIFIED ORGANISM SNOMED Code(s): 442549402 (3) Sepsis Current Visit: Yes Status: Acute Code(s): A41.9 - SEPSIS, UNSPECIFIED ORGANISM SNOMED Code(s): 99330489 Plan: 1patient presented to hospital with sepsis in this patient who did have leukocytosis tachycardia meeting criteria for SIRS source is left lower lobe pneumonia 2-patient with MSSA bacteremia source likely pneumonia, blood culture repeat has been negative so far 3-patient CT of the chest did not show any empyema echocardiogram did not show any valvular abnormalities repeat blood culture negative 4patient did have complication of left-sided pneumothorax s/p is chest tube placement. 5patient remains to be afebrile, the patient white count is about the same as yesterday no worsening, patient will be treated with naficillin along with Flagyl added empirically and monitor clinical course closely Dictation was produced using [employer] dictation software. please excuse any grammatical, word or spelling errors. Time with Patient: Less than 30
--- NOTE | 2024-02-07 08:59 | P.PN ---
Subjective Progress Note Date: 02/07/24 Rodriguez Jackson, is a 73-year-old male who presented to [facility] emergency room with a chief complaint of worsening shortness of breath, patient stated that he fell 2 weeks ago, he was complaining of left-sided rib pain especially when he takes a deep breath. He was also complaining of cough otherwise he denies any complaints. He was evaluated in the emergency room vital examination on presentation revealed a temperature of 98.8 pulse 118 respiration 18 blood pressure 130/78 pulse ox 97% on 10 L nonrebreather mask Laboratory data revealed a white blood count of 20.8 hemoglobin 12.2 platelet count 310 sodium 134 potassium 3.4 chloride 102 BUN 51 creatinine 1.77 AST 188 ALT 135 troponin 0.012 Testing in the emergency room revealed EKG done in the emergency room revealed atrial fibrillation with rapid ventricular response, chest x-ray revealed patchy left and right lower lobe infiltrates worse on the left. Patient was admitted to medical floor for further evaluation and treatment, pulmonary consultation and cardiology consultation were requested. On 01/23/2024 patient was seen and examined on the medical floor he is alert and oriented x 3 in no apparent distress he reports mild improvement in his shortness of breath, he is still complaining of cough and complaining of chest wall pain otherwise he denies any complaints there is no fever or chills no headache or dizziness no nausea or vomiting no abdominal pain no diarrhea no blood in the stools no burning with urination no frequency or urgency and no hematuria. His temperature is 98.8 pulse 108 respiration 26 blood pressure 138/92 pulse ox 91% on 11 L high flow cannula, white blood count is 26.7 hemoglobin 12.8 platelet count 281 BUN 31 creatinine 1.04 On 01/24/2024 patient is alert and oriented x 3. Patient still having some significant shortness of breath currently on 11 L nasal cannula. Cardiology, pu lmonary and infectious disease services are following. Patient remains on Cardizem drip. Patient remains on IV steroids and IV cefazolin. White blood cell 35.7, creatinine 1.18 bun 40. Current vital signs temp 97.8, heart 76, respiratory rate 26, blood pressure 112/73 with a pulse ox of 91% on 11 L On 01/25/2024 patient is alert and oriented x 3 patient reports some improvement with shortness of breath. Pulmonary cardiology and infectious disease services are following. Cardizem dean has been DC'd patient transition to p.o. Cardizekatey per cardiology continue IV antibiotics and steroids at this time.. Current vital signs temp 96.4, heart rate 74, respiratory rate 18, blood pressure 118/83 with a pulse ox of 97% on 10 L high flow. On 01/26/2024 patient was seen and examined on the medical floor he is alert and oriented x 3 in mild respiratory distress, he is maintained on high flow oxygen of 11 L/min, he is still complaining of cough and chest discomfort otherwise he denies any complaints, there is no fever or chills no headache or dizziness no chest pain no nausea or vomiting no abdominal pain no diarrhea no blood in the stools no burning with urination no frequency or urgency and no hematuria. Testing for COVID was positive yesterday. Pulmonary and infectious disease are following. On 01/27/2024 patient is alert and oriented x 3 patient continued to having increase oxygen demands. Per nursing staff pulmonary services were notified patient currently on high flow [address] scan of chest this morning which showed diffuse groundglass opacities and correlation for atypical pneumonia. Patient remains on IV Kefzol and prednisone. Pulmonary and infectious disease services following. Cardiology also following On 01/28/2024 patient is alert and oriented x 3. Patient at this time is resting comfortably in bed. Patient remains on Airvo 60%. Temp 97.6, heart rate 95, respiratory rate 24, blood pressure 100/67. Pulmonary cardiology and infectious disease are following patient remains on IV Kefzol and Solu-Medrol On 01/29/2024 patient was seen and examined on the medical floor he is alert and oriented x 3 in no apparent distress,he is still maintained on high flow oxygen, he is complaining of generalized weakness and complaining of constipation he has very poor oral intake, there is no fever or chills no headache or dizziness no chest pain, he has shortness of breath with any activity no palpitation he has continuous cough no nausea or vomiting no abdominal pain no diarrhea and no urinary symptoms. On 01/30/2024 patient was seen and examined in the ICU, he is alert responsive in no apparent distress maintained on high flow oxygen via Airvo, he was transferred to ICU due to worsening shortness of breath, chest x-ray today revealed interval development of a large left-sided pneumothorax estimated at 40%, he underwent chest tube placement, on the left. His vital exam reveals a temperature of 97.5 pulse 108 respiration 33 blood pressure 133/82 pulse ox is 98% on high flow cannula with FiO2 of 50% On 01/31/2024 patient remains in the intensive care unit. Chest tube in place. Current vital signs temp 97.9, heart rate 84, respiratory rate 23, blood pressure 102/71 with a pulse ox of 97% on high flow of 40%. Patient remains s hort of breath. Patient denies chest pain. Patient denies nausea vomiting or diarrhea. Patient denies any urinary burning or frequency On 02/01/2024 patient is alert and oriented x 3. Patient remains in the intensive care unit. Tube remains in place. Current vital signs temp 97.7, heart rate 79, respiratory rate 24, blood pressure 117/76 with a pulse ox of 100% on 6 L high flow. Patient reports some improvement with shortness of breath. Patient denies chest pain. Patient denies nausea vomiting or diarrhea. On 02/02/2024 patient was seen and examined in the ICU, he is alert and oriented x 3 in no apparent distress, he is complaining of discomfort at the chest tube site, and complaining of shortness of breath otherwise he denies any complaints there is no fever or chills no headache or dizziness, no chest pain, he has occasional cough no nausea or vomiting no abdominal pain no diarrhea no urinary symptoms. Temperature is 97.4 pulse 90 respiration 23 blood pressure 106/78 pulse ox 95% on 4 L nasal cannula, white blood count 45.7 hemoglobin 11.1 platelet count 199 BUN 45 creatinine 0.89 On 02/03/2024 patient remains in the ICU alert and oriented x 3. Patient still has chest tube complaining of some discomfort at site. Speech services at bedside assessing swallow still recommending nectar thick liquids. Current vital signs temp 97.6, heart rate 93, respiratory rate 21. Patient denies chest pain or shortness of breath. Patient denies nausea vomiting or diarrhea. Patient denies any urinary burning and frequency. On 02/04/2024 patient was seen and examined in the intensive care unit, he is alert and oriented in no apparent distress, he is complaining of pain in the chest wall site of the chest tube otherwise he denies any complaints, there is no fever or chills no headache or dizziness no chest pain no shortness of breath no cough no nausea or vomiting no abdominal pain no diarrhea no urinary symptoms, temperature is 97.5 pulse 89 respiration 16 blood pressure 108/68 pulse ox 96% on 4 L nasal cannula. His white blood count is 28.9 hemoglobin 11.0 platelet count 147 sodium 136 potassium 3.9 chloride 111 CO2 23 BUN 30 creatinine 0.94 On 02/05/2024 patient remains in the intensive care unit alert and oriented 3. Patient is down to 2 L. Chest tube remains in place.Patient's appetite remains poor patient has been started on Megace. Will consult when necessary for possible discharge planning. Patient denies chest pain or shortness breath. Patient denies nausea vomiting or diarrhea. Patient denies any urinary burning or frequency. Current vital signs temp 97.6, heart rate 80, respiratory rate 19,, Blood pressure 98/70 with pulse ox 95% on 2 L On 02/06/2024 patient was seen and examined on the telemetry floor, he is alert and oriented x 3. Current vital signs temp 97.9, heart rate 93, respiratory rate 18. blood pressure 122/60 Patient denies chest pain or shortness of breath. Patient denies nausea vomiting or diarrhea. Patient denies any urinary burning and frequency. On 03/05/2024 patient is alert and oriented x 3. Patient complaining about difficulty sleeping melatonin added. Discharge planning to [facility]. Patient remain s with chest tube awaiting further recommendations from pulmonary services. Current vital signs temp 97.3, heart rate 78, respiratory rate 18, blood pressure 133/80 with a pulse ox of 93% on 4 L. Patient denies chest pain or shortness of breath. Patient denies nausea vomiting or diarrhea. Patient denies any urinary burning or frequency Objective - Vital Signs Vital signs: Vital Signs Temp 97 F L 02/07/24 08:00 Pulse 101 H 02/07/24 08:00 Resp 24 02/07/24 08:00 BP 133/80 02/07/24 08:00 Pulse Ox 88 L 02/07/24 08:00 FiO2 40 01/31/24 20:00 Intake & Output 02/06/24 02/07/24 02/07/24 18:59 06:59 18:59 Intake Total 800 Output Total 1240 400 Balance -440 -400 Weight 85.4 kg Intake: IV 450 Sodium Chloride 0.9% 1, 450 000 ml @ 75 mls/hr IV . [id number] [facility] Rx#:[id number] Intake, IV Titration 350 Amount Fluconazole in NaCl,Iso- 50 Osm 100 mg In Saline 1 50ml.bag @ 50 mls/hr IVPB DAILY [facility] Rx#:[id number] Nafcillin 2 gm In 300 Dextrose 5% in Water 100 ml @ 50 mls/hr IVPB Q4HR [facility] Rx#:[id number] Output: Chest Tube Drainage 40 Left Left Pleural/ 40 Mediastinal Urine 1200 400 Other: Voiding Method Indwelling Catheter Indwelling Catheter # Bowel Movements 1 - Exam In general patient is alert and oriented x 3 in no distress HEENT head normocephalic and atraumatic Neck is supple no JVD no goiter no lymphadenopathy no carotid bruit Chest examination reveals a scattered crackles bilaterally no wheezing Cardiac exam reveals irregular heart sounds S1 and S2 with tachycardia no gallops no murmurs Abdomen is soft nontender no organomegaly with normal bowel sounds Extremity exam reveals no edema no cyanosis or clubbing Neurological examination reveals no gross focal deficits - Labs CBC & Chem 7: 02/06/24 06:51 02/06/24 06:51 Labs: Abnormal Lab Results - Last 24 Hours (Table) 02/06/24 02/06/24 Range/Units 11:35 20:00 POC Glucose (mg/dL) 119 H 127 H (70-110) mg/dL Assessment and Plan Assessment: 1. Pneumonia with sepsis as evident by elevated lactic acid and leukocytosis 2. Acute kidney injury secondary to sepsis and dehydration, kidney function improved significantly since admission 3. History of atrial fibrillation maintained on Eliquis, with episodes of rapid ventricular response during this presentation 4. History of CHF 5. Acute hypoxic respiratory failure requiring high flow oxygen supplements pulmonary are following 6. Elevated liver enzymes we will hold statin at this time and recheck 7. Positive blood culture for Staphylococcus aureus, consultation for infectious disease was initiated 8. COVID-19 positive 9. Left-sided pneumothorax requiring left-sided chest tube insertion DVT prophylaxis Eliquis. GI prophylaxis Protonix Pulmonary services consulted, infectious disease cardiology consultation requested echocardiogram ordered Blood and sputum cultures ordered Repeat labs ordered
--- NOTE | 2024-02-07 11:55 | FL ---
EXAMINATION TYPE: FL barium swallow w video DATE OF EXAM: 02/07/2024 CLINICAL HISTORY: 73-year-old male recent extubation with hoarseness and coughing at the bedside TECHNIQUE: Deglutition study is performed utilizing thin liquid barium, honey and nectar thick liqui d barium, barium thick applesauce, and barium coated cracker. COMPARISON: None. Total fluoroscopy time: 1 minute 27 seconds. Total images: None. Real-time fluoroscopy was provided to speech pathology. Total dose: 0.076 Gycm2. FINDINGS: Swallow initiation was mildly delayed with bolus free spilling to the level of the vallecula. Are, ot herwise, no penetration or aspiration is seen. The patient is edentulous which slows mastication. No significant residuals. IMPRESSION: Some swallow delay. However, no penetration or aspiration. Please refer to speech therapist notes for further details if necessary. [facility], , 02/07/2024 11:53 AM
[2024-02-07 11:58] LABS: Glucose,Whole Blood 111 mg/dL (70-110)
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
[2024-02-07 16:54] LABS: Glucose,Whole Blood 170 mg/dL (70-110)
[2024-02-07] MEDS: MELATONIN 5 MG TABLET PO SCH (20:08)
[2024-02-07 20:16] LABS: Glucose,Whole Blood 99 mg/dL (70-110)
[2024-02-08] MEDS: KETOROLAC 15 MG/ML 1 ML VIAL IVP PRN (00:03)
[2024-02-08 06:25] LABS: Glucose,Whole Blood 86 mg/dL (70-110)
[2024-02-08 07:45] LABS: ALT 35 U/L (4-49); AST 45 U/L (17-59); African American GFR (CKD) 82 (>60 ml/min/1.73 sqM); Albumin 1.7 g/dL (3.5-5.0); Alkaline Phosphatase 176 U/L (38-126); Anion Gap 8 mmol/L; Blood Urea Nitrogen 31 mg/dL (9-20); Calcium 6.8 mg/dL (8.4-10.2); Carbon Dioxide 18 mmol/L (22-30); Chloride 110 mmol/L (98-107); Glucose 66 mg/dL (74-99); Non-African American GFR(CKD) 71 (>60 ml/min/1.73 sqM); Potassium 3.4 mmol/L (3.5-5.1); Sodium 136 mmol/L (137-145); Total Bilirubin 2.4 mg/dL (0.2-1.3); Total Protein 4.2 g/dL (6.3-8.2)
[2024-02-08] MEDS ORDERED: Potassium Replacement Protocol 1 EACH MISC MISCELLANE PRN (07:53)
[2024-02-08 08:31] LABS: Basophils % (A) 0 %; Eosinophils # (A) 0.3 k/uL (0-0.7); Eosinophils % (A) 1 %; HCT 33.3 % (39.0-53.0); HGB 10.3 gm/dL (13.0-17.5); Hypochromasia Slight; Lymphocytes # (A) 1.2 k/uL (1.0-4.8); Lymphocytes % (A) 4 %; MCH 32.2 pg (25.0-35.0); MCV 103.8 fL (80.0-100.0); Macrocytosis Moderate; Mean Platelet Volume 13.5; Monocytes # (A) 0.5 k/uL (0-1.0); Monocytes % (A) 2 %; Neutrophils # (A) 24.9 k/uL (1.3-7.7); Neutrophils % (A) 92 %; Platelet Count 165 k/uL (150-450); RBC 3.21 m/uL (4.30-5.90); RDW 15.2 % (11.5-15.5); WBC 26.9 k/uL (3.8-10.6)
[2024-02-08] MEDS: predniSONE 10 MG TAB PO SCH (09:16)
[2024-02-08] MEDS: POTASSIUM CHLORIDE ER 20 MEQ TAB.ER PO SCH (09:17)
--- NOTE | 2024-02-08 09:29 | P.PN ---
Subjective Progress Note Date: 02/08/24 Rodriguez Jackson, is a 73-year-old male who presented to [facility] emergency room with a chief complaint of worsening shortness of breath, patient stated that he fell 2 weeks ago, he was complaining of left-sided rib pain especially when he takes a deep breath. He was also complaining of cough otherwise he denies any complaints. He was evaluated in the emergency room vital examination on presentation revealed a temperature of 98.8 pulse 118 respiration 18 blood pressure 130/78 pulse ox 97% on 10 L nonrebreather mask Laboratory data revealed a white blood count of 20.8 hemoglobin 12.2 platelet count 310 sodium 134 potassium 3.4 chloride 102 BUN 51 creatinine 1.77 AST 188 ALT 135 troponin 0.012 Testing in the emergency room revealed EKG done in the emergency room revealed atrial fibrillation with rapid ventricular response, chest x-ray revealed patchy left and right lower lobe infiltrates worse on the left. Patient was admitted to medical floor for further evaluation and treatment, pulmonary consultation and cardiology consultation were requested. On 01/23/2024 patient was seen and examined on the medical floor he is alert and oriented x 3 in no apparent distress he reports mild improvement in his shortness of breath, he is still complaining of cough and complaining of chest wall pain otherwise he denies any complaints there is no fever or chills no headache or dizziness no nausea or vomiting no abdominal pain no diarrhea no blood in the stools no burning with urination no frequency or urgency and no hematuria. His temperature is 98.8 pulse 108 respiration 26 blood pressure 138/92 pulse ox 91% on 11 L high flow cannula, white blood count is 26.7 hemoglobin 12.8 platelet count 281 BUN 31 creatinine 1.04 On 01/24/2024 patient is alert and oriented x 3. Patient still having some significant shortness of breath currently on 11 L nasal cannula. Cardiology, pu lmonary and infectious disease services are following. Patient remains on Cardizem drip. Patient remains on IV steroids and IV cefazolin. White blood cell 35.7, creatinine 1.18 bun 40. Current vital signs temp 97.8, heart 76, respiratory rate 26, blood pressure 112/73 with a pulse ox of 91% on 11 L On 01/25/2024 patient is alert and oriented x 3 patient reports some improvement with shortness of breath. Pulmonary cardiology and infectious disease services are following. Cardizem dean has been DC'd patient transition to p.o. Cardizekatey per cardiology continue IV antibiotics and steroids at this time.. Current vital signs temp 96.4, heart rate 74, respiratory rate 18, blood pressure 118/83 with a pulse ox of 97% on 10 L high flow. On 01/26/2024 patient was seen and examined on the medical floor he is alert and oriented x 3 in mild respiratory distress, he is maintained on high flow oxygen of 11 L/min, he is still complaining of cough and chest discomfort otherwise he denies any complaints, there is no fever or chills no headache or dizziness no chest pain no nausea or vomiting no abdominal pain no diarrhea no blood in the stools no burning with urination no frequency or urgency and no hematuria. Testing for COVID was positive yesterday. Pulmonary and infectious disease are following. On 01/27/2024 patient is alert and oriented x 3 patient continued to having increase oxygen demands. Per nursing staff pulmonary services were notified patient currently on high flow [address] scan of chest this morning which showed diffuse groundglass opacities and correlation for atypical pneumonia. Patient remains on IV Kefzol and prednisone. Pulmonary and infectious disease services following. Cardiology also following On 01/28/2024 patient is alert and oriented x 3. Patient at this time is resting comfortably in bed. Patient remains on Airvo 60%. Temp 97.6, heart rate 95, respiratory rate 24, blood pressure 100/67. Pulmonary cardiology and infectious disease are following patient remains on IV Kefzol and Solu-Medrol On 01/29/2024 patient was seen and examined on the medical floor he is alert and oriented x 3 in no apparent distress,he is still maintained on high flow oxygen, he is complaining of generalized weakness and complaining of constipation he has very poor oral intake, there is no fever or chills no headache or dizziness no chest pain, he has shortness of breath with any activity no palpitation he has continuous cough no nausea or vomiting no abdominal pain no diarrhea and no urinary symptoms. On 01/30/2024 patient was seen and examined in the ICU, he is alert responsive in no apparent distress maintained on high flow oxygen via Airvo, he was transferred to ICU due to worsening shortness of breath, chest x-ray today revealed interval development of a large left-sided pneumothorax estimated at 40%, he underwent chest tube placement, on the left. His vital exam reveals a temperature of 97.5 pulse 108 respiration 33 blood pressure 133/82 pulse ox is 98% on high flow cannula with FiO2 of 50% On 01/31/2024 patient remains in the intensive care unit. Chest tube in place. Current vital signs temp 97.9, heart rate 84, respiratory rate 23, blood pressure 102/71 with a pulse ox of 97% on high flow of 40%. Patient remains s hort of breath. Patient denies chest pain. Patient denies nausea vomiting or diarrhea. Patient denies any urinary burning or frequency On 02/01/2024 patient is alert and oriented x 3. Patient remains in the intensive care unit. Tube remains in place. Current vital signs temp 97.7, heart rate 79, respiratory rate 24, blood pressure 117/76 with a pulse ox of 100% on 6 L high flow. Patient reports some improvement with shortness of breath. Patient denies chest pain. Patient denies nausea vomiting or diarrhea. On 02/02/2024 patient was seen and examined in the ICU, he is alert and oriented x 3 in no apparent distress, he is complaining of discomfort at the chest tube site, and complaining of shortness of breath otherwise he denies any complaints there is no fever or chills no headache or dizziness, no chest pain, he has occasional cough no nausea or vomiting no abdominal pain no diarrhea no urinary symptoms. Temperature is 97.4 pulse 90 respiration 23 blood pressure 106/78 pulse ox 95% on 4 L nasal cannula, white blood count 45.7 hemoglobin 11.1 platelet count 199 BUN 45 creatinine 0.89 On 02/03/2024 patient remains in the ICU alert and oriented x 3. Patient still has chest tube complaining of some discomfort at site. Speech services at bedside assessing swallow still recommending nectar thick liquids. Current vital signs temp 97.6, heart rate 93, respiratory rate 21. Patient denies chest pain or shortness of breath. Patient denies nausea vomiting or diarrhea. Patient denies any urinary burning and frequency. On 02/04/2024 patient was seen and examined in the intensive care unit, he is alert and oriented in no apparent distress, he is complaining of pain in the chest wall site of the chest tube otherwise he denies any complaints, there is no fever or chills no headache or dizziness no chest pain no shortness of breath no cough no nausea or vomiting no abdominal pain no diarrhea no urinary symptoms, temperature is 97.5 pulse 89 respiration 16 blood pressure 108/68 pulse ox 96% on 4 L nasal cannula. His white blood count is 28.9 hemoglobin 11.0 platelet count 147 sodium 136 potassium 3.9 chloride 111 CO2 23 BUN 30 creatinine 0.94 On 02/05/2024 patient remains in the intensive care unit alert and oriented 3. Patient is down to 2 L. Chest tube remains in place.Patient's appetite remains poor patient has been started on Megace. Will consult when necessary for possible discharge planning. Patient denies chest pain or shortness breath. Patient denies nausea vomiting or diarrhea. Patient denies any urinary burning or frequency. Current vital signs temp 97.6, heart rate 80, respiratory rate 19,, Blood pressure 98/70 with pulse ox 95% on 2 L On 02/06/2024 patient was seen and examined on the telemetry floor, he is alert and oriented x 3. Current vital signs temp 97.9, heart rate 93, respiratory rate 18. blood pressure 122/60 Patient denies chest pain or shortness of breath. Patient denies nausea vomiting or diarrhea. Patient denies any urinary burning and frequency. On 03/05/2024 patient is alert and oriented x 3. Patient complaining about difficulty sleeping melatonin added. Discharge planning to [facility]. Patient remain s with chest tube awaiting further recommendations from pulmonary services. Current vital signs temp 97.3, heart rate 78, respiratory rate 18, blood pressure 133/80 with a pulse ox of 93% on 4 L. Patient denies chest pain or shortness of breath. Patient denies nausea vomiting or diarrhea. Patient denies any urinary burning or frequency On 02/08/2024 patient is alert and oriented x 3. Cardiothoracic surgery was consulted due to left-sided pneumothorax with chest tube placement with continuous airleak at this time recommendations to continue wall suction and will monitor. Patient denies chest pain or shortness of breath. Patient denies nausea vomiting or diarrhea. Patient denies any urinary burning or frequency. Current temp 97.3, heart rate 68, respiratory rate 18, blood pressure 96/63 with a pulse ox of 92% on 4 L Objective - Vital Signs Vital signs: Vital Signs Temp 97.3 F L 02/08/24 04:54 Pulse 68 02/08/24 04:54 Resp 18 02/08/24 04:54 BP 96/63 02/08/24 04:54 Pulse Ox 91 L 02/08/24 04:54 FiO2 40 01/31/24 20:00 Intake & Output 02/07/24 02/08/24 02/08/24 18:59 06:59 18:59 Intake Total 100 Output Total 18 782 Balance 82 -782 Weight 84 kg Intake: Oral 100 Output: Chest Tube Drainage 18 7 Left Left Pleural/ 18 7 Mediastinal Urine 775 Other: Voiding Method Indwelling Catheter Indwelling Catheter - Exam In general patient is alert and oriented x 3 in no distress HEENT head normocephalic and atraumatic Neck is supple no JVD no goiter no lymphadenopathy no carotid bruit Chest examination reveals a scattered crackles bilaterally no wheezing Cardiac exam reveals irregular heart sounds S1 and S2 with tachycardia no gallops no murmurs Abdomen is soft nontender no organomegaly with normal bowel sounds Extremity exam reveals no edema no cyanosis or clubbing Neurological examination reveals no gross focal deficits - Labs CBC & Chem 7: 02/08/24 06:29 02/08/24 06:29 Labs: Abnormal Lab Results - Last 24 Hours (Table) 02/07/24 02/07/24 Range/Units 11:56 16:50 POC Glucose (mg/dL) 111 H 170 H (70-110) mg/dL Assessment and Plan Assessment: 1. Pneumonia with sepsis as evident by elevated lactic acid and leukocytosis 2. Acute kidney injury secondary to sepsis and dehydration, kidney function improved significantly since admission 3. History of atrial fibrillation maintained on Eliquis, with episodes of rapid ventricular response during this presentation 4. History of CHF 5. Acute hypoxic respiratory failure requiring high flow oxygen supplements pulmonary are following 6. Elevated liver enzymes we will hold statin at this time and recheck 7. Positive blood culture for Staphylococcus aureus, consultation for infectious disease was initiated 8. COVID-19 positive 9. Left-sided pneumothorax requiring left-sided chest tube insertion DVT prophylaxis Eliquis. GI prophylaxis Protonix Pulmonary services consulted, infectious disease cardiology consultation requested echocardiogram ordered Blood and sputum cultures ordered Repeat labs ordered
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
--- NOTE | 2024-02-08 10:42 | XR ---
EXAMINATION TYPE: XR chest 1V portable DATE OF EXAM: 02/08/2024 7:14 AM COMPARISON: 02/07/2024 CLINICAL INDICATION: Male, 73 years old with history of Left pneumothorax, , FINDINGS: Left apical chest tube remains in place. No appreciable pneumothorax. Subtle nodular density at the l eft base remains. Heart is mildly enlarged. Diffuse interstitial and patchy opacities, right greater than left persist without significant change. IMPRESSION: 1. Similar diffuse interstitial and patchy bilateral opacities. 2. Left-sided chest tube in place. No appreciable pneumothorax. 3. Similar subtle nodular density at the left base. Attention on follow-up after successful treatment . [facility], , 02/08/2024 10:40 AM
[2024-02-08 11:20] LABS: Large Platelets Present
[2024-02-08 11:21] LABS: Target Cells Present
[2024-02-08 11:58] LABS: Glucose,Whole Blood 126 mg/dL (70-110)
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
[2024-02-08] MEDS: HYDROmorphone 0.5 MG/0.5 ML SYRINGE IVP PRN (15:59)
[2024-02-08 16:42] LABS: Glucose,Whole Blood 127 mg/dL (70-110)
[2024-02-08 19:58] LABS: Glucose,Whole Blood 154 mg/dL (70-110)
[2024-02-09 05:51] LABS: Glucose,Whole Blood 99 mg/dL (70-110)
[2024-02-09 08:36] LABS: Basophils % (A) 0 %; Eosinophils # (A) 0.4 k/uL (0-0.7); Eosinophils % (A) 1 %; HCT 35.7 % (39.0-53.0); HGB 11.3 gm/dL (13.0-17.5); Hypochromasia Moderate; Lymphocytes # (A) 1.7 k/uL (1.0-4.8); Lymphocytes % (A) 6 %; MCH 32.5 pg (25.0-35.0); MCHC 31.7 g/dL (31.0-37.0); MCV 102.7 fL (80.0-100.0); Macrocytosis Slight; Mean Platelet Volume 12.8; Monocytes # (A) 0.8 k/uL (0-1.0); Monocytes % (A) 2 %; Neutrophils # (A) 27.7 k/uL (1.3-7.7); Neutrophils % (A) 90 %; Platelet Count 175 k/uL (150-450); RBC 3.48 m/uL (4.30-5.90); RDW 15.3 % (11.5-15.5); WBC 30.7 k/uL (3.8-10.6)
[2024-02-09 08:39] LABS: ALT 34 U/L (4-49); AST 46 U/L (17-59); African American GFR (CKD) 60 (>60 ml/min/1.73 sqM); Albumin 1.8 g/dL (3.5-5.0); Alkaline Phosphatase 209 U/L (38-126); Anion Gap 5 mmol/L; Blood Urea Nitrogen 37 mg/dL (9-20); Calcium 6.8 mg/dL (8.4-10.2); Carbon Dioxide 19 mmol/L (22-30); Chloride 112 mmol/L (98-107); Glucose 86 mg/dL (74-99); Non-African American GFR(CKD) 52 (>60 ml/min/1.73 sqM); Potassium 3.4 mmol/L (3.5-5.1); Sodium 136 mmol/L (137-145); Total Bilirubin 2.5 mg/dL (0.2-1.3); Total Protein 4.4 g/dL (6.3-8.2)
[2024-02-09 08:40] LABS: Glucose,Whole Blood 113 mg/dL (70-110)
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
[2024-02-09] MEDS: SODIUM CHLORIDE 0.9% 1,000 ML IV ONE (09:20)
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
[2024-02-09 10:20] LABS: INR 1.3 (<1.2); Partial Thromboplastin Time 25.5 sec (22.0-30.0); Prothrombin Time 13.8 sec (10.0-12.5)
[2024-02-09] MEDS: SODIUM CHLORIDE 0.9% 1,000 ML IV SCH (10:54)
[2024-02-09 11:02] LABS: Phosphorus 3.9 mg/dL (2.5-4.5)
--- NOTE | 2024-02-09 11:17 | XR ---
EXAMINATION TYPE: XR chest 1V portable DATE OF EXAM: 02/09/2024 6:50 AM COMPARISON: 02/08/2024 CLINICAL INDICATION: Male, 73 years old with history of Persistent left-sided pneumothorax, , FINDINGS: Heart mildly enlarged. Diffuse interstitial and patchy/confluent bilateral airspace disease, right gr eater than left may show slight worsening in the interval. Possible subtle nodularity of the left bas e is redemonstrated. Left-sided chest tube in place. No appreciable pneumothorax. IMPRESSION: 1. Ongoing bilateral interstitial opacity and airspace disease, right greater than left with slight i nterval worsening. 2. Left chest tube in place. No appreciable pneumothorax. 3. Possible subtle nodularity redemonstrated at the left base. Attention after successful treatment. [facility], , 02/09/2024 11:15 AM
[2024-02-09] MEDS: PIPERACILLIN-TAZOBACTAM 3.375 GM in SODIUM CHLORIDE 0.9% 100 ML IVPB SCH (11:41)
[2024-02-09 11:44] LABS: Glucose,Whole Blood 108 mg/dL (70-110)
--- NOTE | 2024-02-09 12:40 | P.PN ---
Subjective Progress Note Date: 02/09/24 Rodriguez Jackson, is a 73-year-old male who presented to [facility] emergency room with a chief complaint of worsening shortness of breath, patient stated that he fell 2 weeks ago, he was complaining of left-sided rib pain especially when he takes a deep breath. He was also complaining of cough otherwise he denies any complaints. He was evaluated in the emergency room vital examination on presentation revealed a temperature of 98.8 pulse 118 respiration 18 blood pressure 130/78 pulse ox 97% on 10 L nonrebreather mask Laboratory data revealed a white blood count of 20.8 hemoglobin 12.2 platelet count 310 sodium 134 potassium 3.4 chloride 102 BUN 51 creatinine 1.77 AST 188 ALT 135 troponin 0.012 Testing in the emergency room revealed EKG done in the emergency room revealed atrial fibrillation with rapid ventricular response, chest x-ray revealed patchy left and right lower lobe infiltrates worse on the left. Patient was admitted to medical floor for further evaluation and treatment, pulmonary consultation and cardiology consultation were requested. On 01/23/2024 patient was seen and examined on the medical floor he is alert and oriented x 3 in no apparent distress he reports mild improvement in his shortness of breath, he is still complaining of cough and complaining of chest wall pain otherwise he denies any complaints there is no fever or chills no headache or dizziness no nausea or vomiting no abdominal pain no diarrhea no blood in the stools no burning with urination no frequency or urgency and no hematuria. His temperature is 98.8 pulse 108 respiration 26 blood pressure 138/92 pulse ox 91% on 11 L high flow cannula, white blood count is 26.7 hemoglobin 12.8 platelet count 281 BUN 31 creatinine 1.04 On 01/24/2024 patient is alert and oriented x 3. Patient still having some significant shortness of breath currently on 11 L nasal cannula. Cardiology, pu lmonary and infectious disease services are following. Patient remains on Cardizem drip. Patient remains on IV steroids and IV cefazolin. White blood cell 35.7, creatinine 1.18 bun 40. Current vital signs temp 97.8, heart 76, respiratory rate 26, blood pressure 112/73 with a pulse ox of 91% on 11 L On 01/25/2024 patient is alert and oriented x 3 patient reports some improvement with shortness of breath. Pulmonary cardiology and infectious disease services are following. Cardizem dean has been DC'd patient transition to p.o. Cardizekatey per cardiology continue IV antibiotics and steroids at this time.. Current vital signs temp 96.4, heart rate 74, respiratory rate 18, blood pressure 118/83 with a pulse ox of 97% on 10 L high flow. On 01/26/2024 patient was seen and examined on the medical floor he is alert and oriented x 3 in mild respiratory distress, he is maintained on high flow oxygen of 11 L/min, he is still complaining of cough and chest discomfort otherwise he denies any complaints, there is no fever or chills no headache or dizziness no chest pain no nausea or vomiting no abdominal pain no diarrhea no blood in the stools no burning with urination no frequency or urgency and no hematuria. Testing for COVID was positive yesterday. Pulmonary and infectious disease are following. On 01/27/2024 patient is alert and oriented x 3 patient continued to having increase oxygen demands. Per nursing staff pulmonary services were notified patient currently on high flow [address] scan of chest this morning which showed diffuse groundglass opacities and correlation for atypical pneumonia. Patient remains on IV Kefzol and prednisone. Pulmonary and infectious disease services following. Cardiology also following On 01/28/2024 patient is alert and oriented x 3. Patient at this time is resting comfortably in bed. Patient remains on Airvo 60%. Temp 97.6, heart rate 95, respiratory rate 24, blood pressure 100/67. Pulmonary cardiology and infectious disease are following patient remains on IV Kefzol and Solu-Medrol On 01/29/2024 patient was seen and examined on the medical floor he is alert and oriented x 3 in no apparent distress,he is still maintained on high flow oxygen, he is complaining of generalized weakness and complaining of constipation he has very poor oral intake, there is no fever or chills no headache or dizziness no chest pain, he has shortness of breath with any activity no palpitation he has continuous cough no nausea or vomiting no abdominal pain no diarrhea and no urinary symptoms. On 01/30/2024 patient was seen and examined in the ICU, he is alert responsive in no apparent distress maintained on high flow oxygen via Airvo, he was transferred to ICU due to worsening shortness of breath, chest x-ray today revealed interval development of a large left-sided pneumothorax estimated at 40%, he underwent chest tube placement, on the left. His vital exam reveals a temperature of 97.5 pulse 108 respiration 33 blood pressure 133/82 pulse ox is 98% on high flow cannula with FiO2 of 50% On 01/31/2024 patient remains in the intensive care unit. Chest tube in place. Current vital signs temp 97.9, heart rate 84, respiratory rate 23, blood pressure 102/71 with a pulse ox of 97% on high flow of 40%. Patient remains s hort of breath. Patient denies chest pain. Patient denies nausea vomiting or diarrhea. Patient denies any urinary burning or frequency On 02/01/2024 patient is alert and oriented x 3. Patient remains in the intensive care unit. Tube remains in place. Current vital signs temp 97.7, heart rate 79, respiratory rate 24, blood pressure 117/76 with a pulse ox of 100% on 6 L high flow. Patient reports some improvement with shortness of breath. Patient denies chest pain. Patient denies nausea vomiting or diarrhea. On 02/02/2024 patient was seen and examined in the ICU, he is alert and oriented x 3 in no apparent distress, he is complaining of discomfort at the chest tube site, and complaining of shortness of breath otherwise he denies any complaints there is no fever or chills no headache or dizziness, no chest pain, he has occasional cough no nausea or vomiting no abdominal pain no diarrhea no urinary symptoms. Temperature is 97.4 pulse 90 respiration 23 blood pressure 106/78 pulse ox 95% on 4 L nasal cannula, white blood count 45.7 hemoglobin 11.1 platelet count 199 BUN 45 creatinine 0.89 On 02/03/2024 patient remains in the ICU alert and oriented x 3. Patient still has chest tube complaining of some discomfort at site. Speech services at bedside assessing swallow still recommending nectar thick liquids. Current vital signs temp 97.6, heart rate 93, respiratory rate 21. Patient denies chest pain or shortness of breath. Patient denies nausea vomiting or diarrhea. Patient denies any urinary burning and frequency. On 02/04/2024 patient was seen and examined in the intensive care unit, he is alert and oriented in no apparent distress, he is complaining of pain in the chest wall site of the chest tube otherwise he denies any complaints, there is no fever or chills no headache or dizziness no chest pain no shortness of breath no cough no nausea or vomiting no abdominal pain no diarrhea no urinary symptoms, temperature is 97.5 pulse 89 respiration 16 blood pressure 108/68 pulse ox 96% on 4 L nasal cannula. His white blood count is 28.9 hemoglobin 11.0 platelet count 147 sodium 136 potassium 3.9 chloride 111 CO2 23 BUN 30 creatinine 0.94 On 02/05/2024 patient remains in the intensive care unit alert and oriented 3. Patient is down to 2 L. Chest tube remains in place.Patient's appetite remains poor patient has been started on Megace. Will consult when necessary for possible discharge planning. Patient denies chest pain or shortness breath. Patient denies nausea vomiting or diarrhea. Patient denies any urinary burning or frequency. Current vital signs temp 97.6, heart rate 80, respiratory rate 19,, Blood pressure 98/70 with pulse ox 95% on 2 L On 02/06/2024 patient was seen and examined on the telemetry floor, he is alert and oriented x 3. Current vital signs temp 97.9, heart rate 93, respiratory rate 18. blood pressure 122/60 Patient denies chest pain or shortness of breath. Patient denies nausea vomiting or diarrhea. Patient denies any urinary burning and frequency. On 03/05/2024 patient is alert and oriented x 3. Patient complaining about difficulty sleeping melatonin added. Discharge planning to [facility]. Patient remain s with chest tube awaiting further recommendations from pulmonary services. Current vital signs temp 97.3, heart rate 78, respiratory rate 18, blood pressure 133/80 with a pulse ox of 93% on 4 L. Patient denies chest pain or shortness of breath. Patient denies nausea vomiting or diarrhea. Patient denies any urinary burning or frequency On 02/08/2024 patient is alert and oriented x 3. Cardiothoracic surgery was consulted due to left-sided pneumothorax with chest tube placement with continuous airleak at this time recommendations to continue wall suction and will monitor. Patient denies chest pain or shortness of breath. Patient denies nausea vomiting or diarrhea. Patient denies any urinary burning or frequency. Current temp 97.3, heart rate 68, respiratory rate 18, blood pressure 96/63 with a pulse ox of 92% on 4 L On 02/09/2024 patient is alert and oriented x 3. Patient was transferred to the intensive care unit last night due to large bloody bowel movement and hypotension. At this time patient's Eliquis has been on hold. Surgical services have been consulted. Patient denies chest pain or shortness of breath. Patient denies nausea vomiting or diarrhea. Patient denies any urinary burning or frequency. Patient may require norepinephrine for blood pressure support co ntinue ICU management at this time. Critical care services following Objective - Vital Signs Vital signs: Vital Signs Temp 98.9 F 02/09/24 08:00 Pulse 77 02/09/24 08:38 Resp 22 02/09/24 08:38 BP 66/49 02/09/24 08:38 Pulse Ox 92 L 02/09/24 08:38 FiO2 91 02/09/24 08:33 Intake & Output 02/08/24 02/09/24 02/09/24 18:59 06:59 18:59 Intake Total 830 Output Total 400 505 345 Balance 430 -505 -345 Weight 80 kg Intake: Intake, IV Titration 350 Amount Fluconazole in NaCl,Iso- 50 Osm 100 mg In Saline 1 50ml.bag @ 50 mls/hr IVPB DAILY [facility] Rx#:[id number] Nafcillin 2 gm In 300 Dextrose 5% in Water 100 ml @ 50 mls/hr IVPB Q4HR [facility] Rx#:[id number] Oral 480 Output: Chest Tube Drainage 5 45 Left Left Pleural/ 5 45 Mediastinal Urine 400 500 300 Other: Voiding Method Indwelling Catheter Indwelling Catheter Indwelling Catheter # Voids 1 # Bowel Movements 2 - Exam In general patient is alert and oriented x 3 in no distress HEENT head normocephalic and atraumatic Neck is supple no JVD no goiter no lymphadenopathy no carotid bruit Chest examination reveals a scattered crackles bilaterally no wheezing Cardiac exam reveals irregular heart sounds S1 and S2 with tachycardia no gallops no murmurs Abdomen is soft nontender no organomegaly with normal bowel sounds Extremity exam reveals no edema no cyanosis or clubbing Neurological examination reveals no gross focal deficits - Labs CBC & Chem 7: 02/09/24 07:57 02/09/24 07:57 Labs: Abnormal Lab Results - Last 24 Hours (Table) 02/08/24 02/08/24 02/09/24 Range/Units 16:40 19:56 07:57 WBC 30.7 H (3.8-10.6) k/uL RBC 3.48 L (4.30-5.90) m/uL Hgb 11.3 L (13.0-17.5) gm/dL Hct 35.7 L (39.0-53.0) % MCV 102.7 H (80.0-100.0) fL Neutrophils # 27.7 H (1.3-7.7) k/uL PT (10.0-12.5) sec INR (<1.2) Sodium (137-145) mmol/L Potassium (3.5-5.1) mmol/L Chloride (98-107) mmol/L Carbon Dioxide (22-30) mmol/L BUN (9-20) mg/dL Creatinine (0.66-1.25) mg/dL POC Glucose (mg/dL) 127 H 154 H (70-110) mg/dL Calcium (8.4-10.2) mg/dL Total Bilirubin (0.2-1.3) mg/dL Alkaline Phosphatase (38-126) U/L Total Protein (6.3-8.2) g/dL Albumin (3.5-5.0) g/dL Crossmatch 02/09/24 02/09/24 02/09/24 Range/Units 07:57 08:30 08:48 WBC (3.8-10.6) k/uL RBC (4.30-5.90) m/uL Hgb (13.0-17.5) gm/dL Hct (39.0-53.0) % MCV (80.0-100.0) fL Neutrophils # (1.3-7.7) k/uL PT (10.0-12.5) sec INR (<1.2) Sodium 136 L (137-145) mmol/L Potassium 3.4 L (3.5-5.1) mmol/L Chloride 112 H (98-107) mmol/L Carbon Dioxide 19 L (22-30) mmol/L BUN 37 H (9-20) mg/dL Creatinine 1.35 H (0.66-1.25) mg/dL POC Glucose (mg/dL) 113 H (70-110) mg/dL Calcium 6.8 L (8.4-10.2) mg/dL Total Bilirubin 2.5 H (0.2-1.3) mg/dL Alkaline Phosphatase 209 H (38-126) U/L Total Protein 4.4 L (6.3-8.2) g/dL Albumin 1.8 L (3.5-5.0) g/dL Crossmatch See Detail 02/09/24 Range/Units 09:57 WBC (3.8-10.6) k/uL RBC (4.30-5.90) m/uL Hgb (13.0-17.5) gm/dL Hct (39.0-53.0) % MCV (80.0-100.0) fL Neutrophils # (1.3-7.7) k/uL PT 13.8 H (10.0-12.5) sec INR 1.3 H (<1.2) Sodium (137-145) mmol/L Potassium (3.5-5.1) mmol/L Chloride (98-107) mmol/L Carbon Dioxide (22-30) mmol/L BUN (9-20) mg/dL Creatinine (0.66-1.25) mg/dL POC Glucose (mg/dL) (70-110) mg/dL Calcium (8.4-10.2) mg/dL Total Bilirubin (0.2-1.3) mg/dL Alkaline Phosphatase (38-126) U/L Total Protein (6.3-8.2) g/dL Albumin (3.5-5.0) g/dL Crossmatch Assessment and Plan Assessment: 1. Pneumonia with sepsis as evident by elevated lactic acid and leukocytosis 2. Acute kidney injury secondary to sepsis and dehydration, kidney function improved significantly since admission 3. History of atrial fibrillation maintained on Eliquis, with episodes of rapid ventricular response during this presentation 4. History of CHF 5. Acute hypoxic respiratory failure requiring high flow oxygen supplements pulmonary are following 6. Elevated liver enzymes we will hold statin at this time and recheck 7. Positive blood culture for Staphylococcus aureus, consultation for infectious disease was initiated 8. COVID-19 positive 9. Left-sided pneumothorax requiring left-sided chest tube insertion 10. GI bleed. Surgical services consulted Eliquis currently on hold 11. Hypotension secondary to above patient currently in ICU may require vasopressors for blood pressure support DVT prophylaxis Eliquis. GI prophylaxis Protonix Pulmonary services consulted, infectious disease cardiology consultation requested echocardiogram ordered Blood and sputum cultures ordered Repeat labs ordered
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
[2024-02-09] MEDS: DIPHENOX-ATROP 2.5-0.025 MG 1 EACH TAB PO PRN (15:35)
[2024-02-09 17:27] LABS: Glucose,Whole Blood 176 mg/dL (70-110)
[2024-02-09 20:25] LABS: Glucose,Whole Blood 124 mg/dL (70-110)
[2024-02-09 23:59] LABS: Glucose,Whole Blood 147 mg/dL (70-110)
[2024-02-10 04:08] LABS: HGB 10.1 gm/dL (13.0-17.5); Hypochromasia Marked; MCH 32.3 pg (25.0-35.0); MCHC 30.5 g/dL (31.0-37.0); MCV 105.9 fL (80.0-100.0); Macrocytosis Moderate; Mean Platelet Volume 12.9; Platelet Count 134 k/uL (150-450); RBC 3.12 m/uL (4.30-5.90); RDW 15.8 % (11.5-15.5); WBC 29.6 k/uL (3.8-10.6)
[2024-02-10 06:16] LABS: Glucose,Whole Blood 91 mg/dL (70-110)
--- NOTE | 2024-02-10 07:42 | XR ---
EXAMINATION TYPE: XR chest 1V portable DATE OF EXAM: 02/10/2024 5:26 AM COMPARISON: 02/09/2024 CLINICAL INDICATION: Male, 73 years old with history of pneumothorax, , FINDINGS: Left-sided chest tube is in place. No appreciable pneumothorax. Patient is rotated towards the right. Heart mildly enlarged. Interstitial and patchy/confluent bilateral airspace opacities, right greater than left persist. Nodular densities at the left base can be reassessed after successful treatment. IMPRESSION: 1. Left chest tube in place. No appreciable pneumothorax. 2. Ongoing bilateral airspace disease, right greater than left. 3. Nodular densities at the left base can be reassessed after successful treatment. [facility], , 02/10/2024 7:40 AM
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
[2024-02-10] MEDS: SODIUM CHLORIDE 0.9% 1,000 ML IV ONE (10:04)
[2024-02-10 10:06] LABS: ALT 38 U/L (4-49); AST 48 U/L (17-59); African American GFR (CKD) 50 (>60 ml/min/1.73 sqM); Albumin 1.8 g/dL (3.5-5.0); Alkaline Phosphatase 226 U/L (38-126); Anion Gap 8 mmol/L; Blood Urea Nitrogen 40 mg/dL (9-20); Calcium 6.7 mg/dL (8.4-10.2); Carbon Dioxide 15 mmol/L (22-30); Chloride 115 mmol/L (98-107); Glucose 91 mg/dL (74-99); Non-African American GFR(CKD) 43 (>60 ml/min/1.73 sqM); Potassium 3.3 mmol/L (3.5-5.1); Sodium 138 mmol/L (137-145); Total Bilirubin 1.6 mg/dL (0.2-1.3); Total Protein 4.4 g/dL (6.3-8.2)
--- NOTE | 2024-02-10 10:12 | P.PN ---
Subjective Progress Note Date: 02/10/24 Rodriguez Jackson, is a 73-year-old male who presented to [facility] emergency room with a chief complaint of worsening shortness of breath, patient stated that he fell 2 weeks ago, he was complaining of left-sided rib pain especially when he takes a deep breath. He was also complaining of cough otherwise he denies any complaints. He was evaluated in the emergency room vital examination on presentation revealed a temperature of 98.8 pulse 118 respiration 18 blood pressure 130/78 pulse ox 97% on 10 L nonrebreather mask Laboratory data revealed a white blood count of 20.8 hemoglobin 12.2 platelet count 310 sodium 134 potassium 3.4 chloride 102 BUN 51 creatinine 1.77 AST 188 ALT 135 troponin 0.012 Testing in the emergency room revealed EKG done in the emergency room revealed atrial fibrillation with rapid ventricular response, chest x-ray revealed patchy left and right lower lobe infiltrates worse on the left. Patient was admitted to medical floor for further evaluation and treatment, pulmonary consultation and cardiology consultation were requested. On 01/23/2024 patient was seen and examined on the medical floor he is alert and oriented x 3 in no apparent distress he reports mild improvement in his shortness of breath, he is still complaining of cough and complaining of chest wall pain otherwise he denies any complaints there is no fever or chills no headache or dizziness no nausea or vomiting no abdominal pain no diarrhea no blood in the stools no burning with urination no frequency or urgency and no hematuria. His temperature is 98.8 pulse 108 respiration 26 blood pressure 138/92 pulse ox 91% on 11 L high flow cannula, white blood count is 26.7 hemoglobin 12.8 platelet count 281 BUN 31 creatinine 1.04 On 01/24/2024 patient is alert and oriented x 3. Patient still having some significant shortness of breath currently on 11 L nasal cannula. Cardiology, pu lmonary and infectious disease services are following. Patient remains on Cardizem drip. Patient remains on IV steroids and IV cefazolin. White blood cell 35.7, creatinine 1.18 bun 40. Current vital signs temp 97.8, heart 76, respiratory rate 26, blood pressure 112/73 with a pulse ox of 91% on 11 L On 01/25/2024 patient is alert and oriented x 3 patient reports some improvement with shortness of breath. Pulmonary cardiology and infectious disease services are following. Cardizem dean has been DC'd patient transition to p.o. Cardizekatey per cardiology continue IV antibiotics and steroids at this time.. Current vital signs temp 96.4, heart rate 74, respiratory rate 18, blood pressure 118/83 with a pulse ox of 97% on 10 L high flow. On 01/26/2024 patient was seen and examined on the medical floor he is alert and oriented x 3 in mild respiratory distress, he is maintained on high flow oxygen of 11 L/min, he is still complaining of cough and chest discomfort otherwise he denies any complaints, there is no fever or chills no headache or dizziness no chest pain no nausea or vomiting no abdominal pain no diarrhea no blood in the stools no burning with urination no frequency or urgency and no hematuria. Testing for COVID was positive yesterday. Pulmonary and infectious disease are following. On 01/27/2024 patient is alert and oriented x 3 patient continued to having increase oxygen demands. Per nursing staff pulmonary services were notified patient currently on high flow [address] scan of chest this morning which showed diffuse groundglass opacities and correlation for atypical pneumonia. Patient remains on IV Kefzol and prednisone. Pulmonary and infectious disease services following. Cardiology also following On 01/28/2024 patient is alert and oriented x 3. Patient at this time is resting comfortably in bed. Patient remains on Airvo 60%. Temp 97.6, heart rate 95, respiratory rate 24, blood pressure 100/67. Pulmonary cardiology and infectious disease are following patient remains on IV Kefzol and Solu-Medrol On 01/29/2024 patient was seen and examined on the medical floor he is alert and oriented x 3 in no apparent distress,he is still maintained on high flow oxygen, he is complaining of generalized weakness and complaining of constipation he has very poor oral intake, there is no fever or chills no headache or dizziness no chest pain, he has shortness of breath with any activity no palpitation he has continuous cough no nausea or vomiting no abdominal pain no diarrhea and no urinary symptoms. On 01/30/2024 patient was seen and examined in the ICU, he is alert responsive in no apparent distress maintained on high flow oxygen via Airvo, he was transferred to ICU due to worsening shortness of breath, chest x-ray today revealed interval development of a large left-sided pneumothorax estimated at 40%, he underwent chest tube placement, on the left. His vital exam reveals a temperature of 97.5 pulse 108 respiration 33 blood pressure 133/82 pulse ox is 98% on high flow cannula with FiO2 of 50% On 01/31/2024 patient remains in the intensive care unit. Chest tube in place. Current vital signs temp 97.9, heart rate 84, respiratory rate 23, blood pressure 102/71 with a pulse ox of 97% on high flow of 40%. Patient remains s hort of breath. Patient denies chest pain. Patient denies nausea vomiting or diarrhea. Patient denies any urinary burning or frequency On 02/01/2024 patient is alert and oriented x 3. Patient remains in the intensive care unit. Tube remains in place. Current vital signs temp 97.7, heart rate 79, respiratory rate 24, blood pressure 117/76 with a pulse ox of 100% on 6 L high flow. Patient reports some improvement with shortness of breath. Patient denies chest pain. Patient denies nausea vomiting or diarrhea. On 02/02/2024 patient was seen and examined in the ICU, he is alert and oriented x 3 in no apparent distress, he is complaining of discomfort at the chest tube site, and complaining of shortness of breath otherwise he denies any complaints there is no fever or chills no headache or dizziness, no chest pain, he has occasional cough no nausea or vomiting no abdominal pain no diarrhea no urinary symptoms. Temperature is 97.4 pulse 90 respiration 23 blood pressure 106/78 pulse ox 95% on 4 L nasal cannula, white blood count 45.7 hemoglobin 11.1 platelet count 199 BUN 45 creatinine 0.89 On 02/03/2024 patient remains in the ICU alert and oriented x 3. Patient still has chest tube complaining of some discomfort at site. Speech services at bedside assessing swallow still recommending nectar thick liquids. Current vital signs temp 97.6, heart rate 93, respiratory rate 21. Patient denies chest pain or shortness of breath. Patient denies nausea vomiting or diarrhea. Patient denies any urinary burning and frequency. On 02/04/2024 patient was seen and examined in the intensive care unit, he is alert and oriented in no apparent distress, he is complaining of pain in the chest wall site of the chest tube otherwise he denies any complaints, there is no fever or chills no headache or dizziness no chest pain no shortness of breath no cough no nausea or vomiting no abdominal pain no diarrhea no urinary symptoms, temperature is 97.5 pulse 89 respiration 16 blood pressure 108/68 pulse ox 96% on 4 L nasal cannula. His white blood count is 28.9 hemoglobin 11.0 platelet count 147 sodium 136 potassium 3.9 chloride 111 CO2 23 BUN 30 creatinine 0.94 On 02/05/2024 patient remains in the intensive care unit alert and oriented 3. Patient is down to 2 L. Chest tube remains in place.Patient's appetite remains poor patient has been started on Megace. Will consult when necessary for possible discharge planning. Patient denies chest pain or shortness breath. Patient denies nausea vomiting or diarrhea. Patient denies any urinary burning or frequency. Current vital signs temp 97.6, heart rate 80, respiratory rate 19,, Blood pressure 98/70 with pulse ox 95% on 2 L On 02/06/2024 patient was seen and examined on the telemetry floor, he is alert and oriented x 3. Current vital signs temp 97.9, heart rate 93, respiratory rate 18. blood pressure 122/60 Patient denies chest pain or shortness of breath. Patient denies nausea vomiting or diarrhea. Patient denies any urinary burning and frequency. On 03/05/2024 patient is alert and oriented x 3. Patient complaining about difficulty sleeping melatonin added. Discharge planning to [facility]. Patient remain s with chest tube awaiting further recommendations from pulmonary services. Current vital signs temp 97.3, heart rate 78, respiratory rate 18, blood pressure 133/80 with a pulse ox of 93% on 4 L. Patient denies chest pain or shortness of breath. Patient denies nausea vomiting or diarrhea. Patient denies any urinary burning or frequency On 02/08/2024 patient is alert and oriented x 3. Cardiothoracic surgery was consulted due to left-sided pneumothorax with chest tube placement with continuous airleak at this time recommendations to continue wall suction and will monitor. Patient denies chest pain or shortness of breath. Patient denies nausea vomiting or diarrhea. Patient denies any urinary burning or frequency. Current temp 97.3, heart rate 68, respiratory rate 18, blood pressure 96/63 with a pulse ox of 92% on 4 L On 02/09/2024 patient is alert and oriented x 3. Patient was transferred to the intensive care unit last night due to large bloody bowel movement and hypotension. At this time patient's Eliquis has been on hold. Surgical services have been consulted. Patient denies chest pain or shortness of breath. Patient denies nausea vomiting or diarrhea. Patient denies any urinary burning or frequency. Patient may require norepinephrine for blood pressure support co ntinue ICU management at this time. Critical care services following On 02/10/2024 patient is alert and oriented x 3. Per nursing staff patient has had no further episodes of large-volume bloody bowel movement. Patient still having some hypotension. Patient was evaluated by surgical services Eliquis remains on hold hemoglobin remained stable continue monitoring at this time. Patient also being followed by cardiothoracic surgery chest tube remains to suction at this time. Patient denies chest pain or shortness of breath. Patient denies any urinary burning or frequency. Patient denies nausea vomiting or diarrhea Objective - Vital Signs Vital signs: Vital Signs Temp 96.8 F L 02/10/24 08:15 Pulse 73 02/10/24 09:30 Resp 18 02/10/24 09:30 BP 65/48 02/10/24 09:30 Pulse Ox 94 L 02/10/24 09:30 FiO2 91 02/09/24 08:33 Intake & Output 02/09/24 02/10/24 02/10/24 18:59 06:59 18:59 Intake Total 2072 1530 300 Output Total 575 395 45 Balance 1497 1135 255 Weight 80 kg 85.7 kg Intake: IV 1850 1350 300 Piperacillin-Tazobactam 3 150 150 .375 gm In Sodium Chloride 0.9% 100 ml @ 25 mls/hr IVPB Q8HR TRENT Rx# :[id number] Sodium Chloride 0.9% 1, 700 1200 300 000 ml @ 100 mls/hr IV . Q10H TRENT Rx#:[id number] Sodium Chloride 0.9% 1, 1000 000 ml @ 999 mls/hr IV . Q1H1M ONE Rx#:[id number] Oral 222 180 Output: Chest Tube Drainage 45 80 Left Left Pleural/ 45 80 Mediastinal Urine 530 315 45 Other: Voiding Method Indwelling Catheter Indwelling Catheter # Voids 1 # Bowel Movements 2 - Exam In general patient is alert and oriented x 3 in no distress HEENT head normocephalic and atraumatic Neck is supple no JVD no goiter no lymphadenopathy no carotid bruit Chest examination reveals a scattered crackles bilaterally no wheezing Cardiac exam reveals irregular heart sounds S1 and S2 with tachycardia no gallop s no murmurs Abdomen is soft nontender no organomegaly with normal bowel sounds Extremity exam reveals no edema no cyanosis or clubbing Neurological examination reveals no gross focal deficits - Labs CBC & Chem 7: 02/10/24 03:04 02/10/24 09:16 Labs: Abnormal Lab Results - Last 24 Hours (Table) 02/09/24 02/09/24 02/09/24 Range/Units 08:48 09:57 17:27 WBC (3.8-10.6) k/uL RBC (4.30-5.90) m/uL Hgb (13.0-17.5) gm/dL Hct (39.0-53.0) % MCV (80.0-100.0) fL MCHC (31.0-37.0) g/dL RDW (11.5-15.5) % Plt Count (150-450) k/uL PT 13.8 H (10.0-12.5) sec INR 1.3 H (<1.2) Potassium (3.5-5.1) mmol/L Chloride (98-107) mmol/L Carbon Dioxide (22-30) mmol/L BUN (9-20) mg/dL Creatinine (0.66-1.25) mg/dL POC Glucose (mg/dL) 176 H (70-110) mg/dL Calcium (8.4-10.2) mg/dL Total Bilirubin (0.2-1.3) mg/dL Alkaline Phosphatase (38-126) U/L Total Protein (6.3-8.2) g/dL Albumin (3.5-5.0) g/dL Crossmatch See Detail 02/09/24 02/09/24 02/10/24 Range/Units 20:24 23:58 03:04 WBC 29.6 H (3.8-10.6) k/uL RBC 3.12 L (4.30-5.90) m/uL Hgb 10.1 L (13.0-17.5) gm/dL Hct 33.0 L (39.0-53.0) % MCV 105.9 H (80.0-100.0) fL MCHC 30.5 L (31.0-37.0) g/dL RDW 15.8 H (11.5-15.5) % Plt Count 134 L (150-450) k/uL PT (10.0-12.5) sec INR (<1.2) Potassium (3.5-5.1) mmol/L Chloride (98-107) mmol/L Carbon Dioxide (22-30) mmol/L BUN (9-20) mg/dL Creatinine (0.66-1.25) mg/dL POC Glucose (mg/dL) 124 H 147 H (70-110) mg/dL Calcium (8.4-10.2) mg/dL Total Bilirubin (0.2-1.3) mg/dL Alkaline Phosphatase (38-126) U/L Total Protein (6.3-8.2) g/dL Albumin (3.5-5.0) g/dL Crossmatch 02/10/24 Range/Units 09:16 WBC (3.8-10.6) k/uL RBC (4.30-5.90) m/uL Hgb (13.0-17.5) gm/dL Hct (39.0-53.0) % MCV (80.0-100.0) fL MCHC (31.0-37.0) g/dL RDW (11.5-15.5) % Plt Count (150-450) k/uL PT (10.0-12.5) sec INR (<1.2) Potassium 3.3 L (3.5-5.1) mmol/L Chloride 115 H (98-107) mmol/L Carbon Dioxide 15 L (22-30) mmol/L BUN 40 H (9-20) mg/dL Creatinine 1.58 H (0.66-1.25) mg/dL POC Glucose (mg/dL) (70-110) mg/dL Calcium 6.7 L (8.4-10.2) mg/dL Total Bilirubin 1.6 H (0.2-1.3) mg/dL Alkaline Phosphatase 226 H (38-126) U/L Total Protein 4.4 L (6.3-8.2) g/dL Albumin 1.8 L (3.5-5.0) g/dL Crossmatch Assessment and Plan Assessment: 1. Pneumonia with sepsis as evident by elevated lactic acid and leukocytosis 2. Acute kidney injury secondary to sepsis and dehydration, kidney function improved significantly since admission 3. History of atrial fibrillation maintained on Eliquis, with episodes of rapid ventricular response during this presentation 4. History of CHF 5. Acute hypoxic respiratory failure requiring high flow oxygen supplements pulmonary are following 6. Elevated liver enzymes we will hold statin at this time and recheck 7. Positive blood culture for Staphylococcus aureus, consultation for infectious disease was initiated 8. COVID-19 positive 9. Left-sided pneumothorax requiring left-sided chest tube insertion 10. GI bleed. Surgical services consulted Eliquis currently on hold 11. Hypotension secondary to above patient currently in ICU may require vasopressors for blood pressure support DVT prophylaxis Eliquis. GI prophylaxis Protonix Pulmonary services consulted, infectious disease cardiology consultation requested echocardiogram ordered Blood and sputum cultures ordered Repeat labs ordered
--- NOTE | 2024-02-10 11:21 | P.PN ---
Subjective Progress Note Date: 02/10/24 SURGICAL PROGRESS NOTE CHIEF COMPLAINT: Shortness of breath HISTORY OF PRESENT ILLNESS: Patient remains in the ICU for hypotension. Surgical service is following in regards to GI bleed. Patient is having brown stools for the last 2 days. No further evidence of bleeding. No no further episodes of epistaxis. Hemoglobin did go down slightly from 11.3-10.1 but patient has been receiving fluid boluses for his hypotension. Patient complains of pain at chest tube site. His CODE STATUS has been changed to DNR. WBC 29.6 Hgb 10.1 platelets 134 sodium 138 potassium 3.3 creatinine 1.58 PHYSICAL EXAM: VITAL SIGNS: Reviewed. GENERAL: Well-developed in no acute distress. ABDOMEN: Soft. Nondistended. Nontender. NEUROLOGIC: Alert and oriented. Cranial nerves II through XII grossly intact. ASSESSMENT: 1. Acute GI bleed, now resolved 2. Leukocytosis likely due to pneumonia and bacteremia 3. History of atrial fibrillation PLAN: -No surgical intervention planned -Continue to hold Eliquis -Continue to monitor for any signs or symptoms of bleeding Physician Burn Out Scarfing Operator note has been reviewed by physician. Signing provider agrees with the documented findings, assessment, and plan of care. Objective - Vital Signs Vital signs: Vital Signs Temp 96.8 F L 02/10/24 08:15 Pulse 73 02/10/24 09:30 Resp 18 02/10/24 09:30 BP 65/48 02/10/24 09:30 Pulse Ox 94 L 02/10/24 09:30 FiO2 91 02/09/24 08:33 Intake & Output 02/09/24 02/10/24 02/10/24 18:59 06:59 18:59 Intake Total 2072 1530 300 Output Total 575 395 45 Balance 1497 1135 255 Weight 80 kg 85.7 kg Intake: IV 1850 1350 300 Piperacillin-Tazobactam 3 150 150 .375 gm In Sodium Chloride 0.9% 100 ml @ 25 mls/hr IVPB Q8HR [facility]ENT Rx# :[id number] Sodium Chloride 0.9% 1, 700 1200 300 000 ml @ 100 mls/hr IV . Q10H [facility]ENT Rx#:[id number] Sodium Chloride 0.9% 1, 1000 000 ml @ 999 mls/hr IV . Q1H1M ONE Rx#:[id number] Oral 222 180 Output: Chest Tube Drainage 45 80 Left Left Pleural/ 45 80 Mediastinal Urine 530 315 45 Other: Voiding Method Indwelling Catheter Indwelling Catheter # Voids 1 # Bowel Movements 2 - Labs CBC & Chem 7: 02/10/24 03:04 02/10/24 09:16 Labs: Abnormal Lab Results - Last 24 Hours (Table) 02/09/24 02/09/24 02/09/24 Range/Units 08:48 17:27 20:24 WBC (3.8-10.6) k/uL RBC (4.30-5.90) m/uL Hgb (13.0-17.5) gm/dL Hct (39.0-53.0) % MCV (80.0-100.0) fL MCHC (31.0-37.0) g/dL RDW (11.5-15.5) % Plt Count (150-450) k/uL Potassium (3.5-5.1) mmol/L Chloride (98-107) mmol/L Carbon Dioxide (22-30) mmol/L BUN (9-20) mg/dL Creatinine (0.66-1.25) mg/dL POC Glucose (mg/dL) 176 H 124 H (70-110) mg/dL Calcium (8.4-10.2) mg/dL Total Bilirubin (0.2-1.3) mg/dL Alkaline Phosphatase (38-126) U/L Total Protein (6.3-8.2) g/dL Albumin (3.5-5.0) g/dL Crossmatch See Detail 02/09/24 02/10/24 02/10/24 Range/Units 23:58 03:04 09:16 WBC 29.6 H (3.8-10.6) k/uL RBC 3.12 L (4.30-5.90) m/uL Hgb 10.1 L (13.0-17.5) gm/dL Hct 33.0 L (39.0-53.0) % MCV 105.9 H (80.0-100.0) fL MCHC 30.5 L (31.0-37.0) g/dL RDW 15.8 H (11.5-15.5) % Plt Count 134 L (150-450) k/uL Potassium 3.3 L (3.5-5.1) mmol/L Chloride 115 H (98-107) mmol/L Carbon Dioxide 15 L (22-30) mmol/L BUN 40 H (9-20) mg/dL Creatinine 1.58 H (0.66-1.25) mg/dL POC Glucose (mg/dL) 147 H (70-110) mg/dL Calcium 6.7 L (8.4-10.2) mg/dL Total Bilirubin 1.6 H (0.2-1.3) mg/dL Alkaline Phosphatase 226 H (38-126) U/L Total Protein 4.4 L (6.3-8.2) g/dL Albumin 1.8 L (3.5-5.0) g/dL Crossmatch
[2024-02-10] MEDS: NOREPINEPHRINE 8 MG in SODIUM CHLORIDE 0.9% 250 ML IV SCH (12:42)
--- NOTE | 2024-02-10 14:46 | P.PN ---
Subjective Progress Note Date: 02/10/24 Principal diagnosis: Reason for follow-up is left-sided pneumonia and MSSA bacteremia Patient is a 73-year-old with a past medical history significant for atrial fibrillation heart failure , close head injury patient presenting to the hospital for evaluation of increasing shortness of breath left lower chest pain, patient has been diagnosed with left-sided pneumonia and did have a positive blood culture with MSSA prompted this consultation.Patient did have a chest x-ray morning of 01/30/2024 with evidence of left-sided pneumothorax in this patient who status post chest tube placement on 01/30/2024 by pulmonary On today's evaluation that is 02/10/2024, the patient continues to be afebrile, the patient is on 4 L of oxygen breathing slightly comfortably denies any worsening chest pain or cough no vomiting or diarrhea has been reported. Patient white count is down to 29.6, creatinine is 1.58 chest x-ray left-sided chest tube no pneumothorax bilateral airspace disease Objective - Vital Signs Vital signs: Vital Signs Temp 96.8 F L 02/10/24 08:15 Pulse 73 02/10/24 09:30 Resp 18 02/10/24 09:30 BP 65/48 02/10/24 09:30 Pulse Ox 94 L 02/10/24 09:30 FiO2 91 02/09/24 08:33 Intake & Output 02/09/24 02/10/24 02/10/24 18:59 06:59 18:59 Intake Total 2072 1530 300 Output Total 575 395 45 Balance 1497 1135 255 Weight 80 kg 85.7 kg Intake: IV 1850 1350 300 Piperacillin-Tazobactam 3 150 150 .375 gm In Sodium Chloride 0.9% 100 ml @ 25 mls/hr IVPB Q8HR [facility]ENT Rx# :[id number] Sodium Chloride 0.9% 1, 700 1200 300 000 ml @ 100 mls/hr IV . Q10H [facility]ENT Rx#:[id number] Sodium Chloride 0.9% 1, 1000 000 ml @ 999 mls/hr IV . Q1H1M ONE Rx#:[id number] Oral 222 180 Output: Chest Tube Drainage 45 80 Left Left Pleural/ 45 80 Mediastinal Urine 530 315 45 Other: Voiding Method Indwelling Catheter Indwelling Catheter # Voids 1 # Bowel Movements 2 - Exam GENERAL DESCRIPTION: An elderly male lying in bed in no distress RESPIRATORY SYSTEM: Unlabored breathing , close bedside left side HEART: S1 S2 regular rate and rhythm , ABDOMEN: Soft , no tenderness EXTREMITIES: No edema feet - Labs CBC & Chem 7: 02/10/24 03:04 02/10/24 09:16 Labs: Abnormal Lab Results - Last 24 Hours (Table) 02/09/24 02/09/24 02/09/24 Range/Units 08:48 17:27 20:24 WBC (3.8-10.6) k/uL RBC (4.30-5.90) m/uL Hgb (13.0-17.5) gm/dL Hct (39.0-53.0) % MCV (80.0-100.0) fL MCHC (31.0-37.0) g/dL RDW (11.5-15.5) % Plt Count (150-450) k/uL Potassium (3.5-5.1) mmol/L Chloride (98-107) mmol/L Carbon Dioxide (22-30) mmol/L BUN (9-20) mg/dL Creatinine (0.66-1.25) mg/dL POC Glucose (mg/dL) 176 H 124 H (70-110) mg/dL Calcium (8.4-10.2) mg/dL Total Bilirubin (0.2-1.3) mg/dL Alkaline Phosphatase (38-126) U/L Total Protein (6.3-8.2) g/dL Albumin (3.5-5.0) g/dL Crossmatch See Detail 02/09/24 02/10/24 02/10/24 Range/Units 23:58 03:04 09:16 WBC 29.6 H (3.8-10.6) k/uL RBC 3.12 L (4.30-5.90) m/uL Hgb 10.1 L (13.0-17.5) gm/dL Hct 33.0 L (39.0-53.0) % MCV 105.9 H (80.0-100.0) fL MCHC 30.5 L (31.0-37.0) g/dL RDW 15.8 H (11.5-15.5) % Plt Count 134 L (150-450) k/uL Potassium 3.3 L (3.5-5.1) mmol/L Chloride 115 H (98-107) mmol/L Carbon Dioxide 15 L (22-30) mmol/L BUN 40 H (9-20) mg/dL Creatinine 1.58 H (0.66-1.25) mg/dL POC Glucose (mg/dL) 147 H (70-110) mg/dL Calcium 6.7 L (8.4-10.2) mg/dL Total Bilirubin 1.6 H (0.2-1.3) mg/dL Alkaline Phosphatase 226 H (38-126) U/L Total Protein 4.4 L (6.3-8.2) g/dL Albumin 1.8 L (3.5-5.0) g/dL Crossmatch Assessment and Plan (1) Bacteremia due to methicillin susceptible Staphylococcus aureus (MSSA) Current Visit: Yes Status: Acute Code(s): R78.81 - BACTEREMIA; B95.61 - METHICILLIN SUSCEP STAPH INFCT CAUSING DIS CLASSD [id number] SNOMED Code(s): 383738076 (2) Pneumonia Current Visit: Yes Status: Acute Code(s): J18.9 - PNEUMONIA, UNSPECIFIED ORGANISM SNOMED Code(s): 065117457 (3) Sepsis Current Visit: Yes Status: Acute Code(s): A41.9 - SEPSIS, UNSPECIFIED ORGANISM SNOMED Code(s): 20238545 Plan: 1patient presented to hospital with sepsis in this patient who did have leukocytosis tachycardia meeting criteria for SIRS source is left lower lobe pneumonia 2-patient with MSSA bacteremia source likely pneumonia, blood culture repeat has been negative so far 3-patient CT of the chest did not show any empyema echocardiogram did not show any valvular abnormalities repeat blood culture negative 4patient did have complication of left-sided pneumothorax s/p is chest tube placement. Patient did have persistent leak CT surgery is closely following the patient considered to be high risk for any surgical procedure 5the patient with significant changes in his clinical condition did have significant bloody diarrhea stool for C. difficile requested but not collected 6 the patient is currently being treated with Zosyn to continue will repeat cultures patient spike any fever or change in clinical condition Dictation was produced using [email or web address] dictation software. please excuse any grammatical, word or spelling errors. Time with Patient: Less than 30
[2024-02-10] MEDS: POTASSIUM CHLORIDE ER 20 MEQ TAB.ER PO SCH (15:34)
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
[2024-02-10 18:10] LABS: Glucose,Whole Blood 119 mg/dL (70-110)
[2024-02-10 20:21] LABS: Glucose,Whole Blood 126 mg/dL (70-110)
[2024-02-10] MEDS: POTASSIUM CHLORIDE 20 MEQ in WATER FOR INJECTION 1 100ML.BAG IVPB SCH (21:08)
--- NOTE | 2024-02-10 22:04 | PCN ---
PROCEDURE NOTE PROCEDURE PERFORMED: Placement of right radial arterial line. PREOPERATIVE DIAGNOSES: Acute hypoxic respiratory failure and hypotension. POSTOPERATIVE DIAGNOSES: Acute hypoxic respiratory failure and hypotension. ANESTHESIA USED: None deployed. PROCEDURE IN DETAIL: Right wrist was prepared in a sterile fashion, right radial artery was palpated, easily cannulated, and a guidewire was placed. Cook's catheter inserted over the guidewire, and the guidewire was removed. Good blood flow, good waveform, no complications, line was secured using 3.0 silk sutures. MMODL / IJN: [id number] /
[2024-02-11 05:29] LABS: Anisocytosis Slight; Basophils % (A) 0 %; Eosinophils # (A) 0.2 k/uL (0-0.7); Eosinophils % (A) 1 %; HCT 28.6 % (39.0-53.0); Hypochromasia Slight; Lymphocytes % (A) 4 %; MCH 31.9 pg (25.0-35.0); MCHC 31.5 g/dL (31.0-37.0); MCV 101.1 fL (80.0-100.0); Macrocytosis Slight; Mean Platelet Volume 15.8; Monocytes # (A) 0.4 k/uL (0-1.0); Monocytes % (A) 2 %; Neutrophils # (A) 22.2 k/uL (1.3-7.7); Neutrophils % (A) 93 %; Platelet Count 134 k/uL (150-450); RBC 2.83 m/uL (4.30-5.90); RDW 17.3 % (11.5-15.5)
[2024-02-11] MEDS ORDERED: ZINC OXIDE PASTE (Z-GUARD) 1 APPLIC TOPICAL PRN (05:29)
[2024-02-11 05:45] LABS: ALT 32 U/L (4-49); AST 40 U/L (17-59); African American GFR (CKD) 62 (>60 ml/min/1.73 sqM); Albumin 1.7 g/dL (3.5-5.0); Alkaline Phosphatase 198 U/L (38-126); Anion Gap 4 mmol/L; Blood Urea Nitrogen 35 mg/dL (9-20); Carbon Dioxide 14 mmol/L (22-30); Chloride 120 mmol/L (98-107); Glucose 104 mg/dL (74-99); Non-African American GFR(CKD) 54 (>60 ml/min/1.73 sqM); Potassium 3.6 mmol/L (3.5-5.1); Sodium 138 mmol/L (137-145); Total Bilirubin 1.2 mg/dL (0.2-1.3); Total Protein 4.1 g/dL (6.3-8.2)
[2024-02-11 05:55] LABS: Glucose,Whole Blood 107 mg/dL (70-110)
[2024-02-11 06:29] LABS: Calcium 6.4 mg/dL (8.4-10.2)
--- NOTE | 2024-02-11 06:48 | XR ---
EXAMINATION TYPE: XR chest 1V portable DATE OF EXAM: 02/11/2024 COMPARISON: 02/10/2024 CLINICAL INDICATION: Male, 73 years old with history of Pneumothorax; TECHNIQUE: Single frontal view of the chest is obtained. FINDINGS: No change in left chest tube. There is no pneumothorax. There is diffuse interstitial opacity and partial airspace consolidation in the right midlung zone an d to a lesser extent the left mid lung zone. Overall there is been no interval change in the acute in terstitial and airspace cardiopulmonary process. Heart size is enlarged. Small right effusion cannot be excluded. IMPRESSION: 1. Left chest tube with no left-sided pneumothorax. 2. No significant interval change in the diffuse interstitial and partially airspace acute cardiopulm onary process. [facility], , 02/11/2024 6:45 AM
[2024-02-11] MEDS: POTASSIUM CHLORIDE ER 20 MEQ TAB.ER PO SCH (07:52)
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
[2024-02-11] MEDS: HYDROmorphone 1 MG/ML 1 ML SYRINGE IVP PRN (10:46)
[2024-02-11 11:18] LABS: Glucose,Whole Blood 168 mg/dL (70-110)
--- NOTE | 2024-02-11 11:23 | XR ---
EXAMINATION TYPE: XR chest 1V portable DATE OF EXAM: 02/11/2024 COMPARISON:02/11/24 CLINICAL INDICATION: Male, 73 years old with history of Hypoxemia; TECHNIQUE: Single frontal view of the chest is obtained. FINDINGS: There is been no interval change in the diffuse interstitial and partially consolidative pr ocesses in both lungs. There is no pleural effusion or pneumothorax. The heart size is normal. IMPRESSION: Acute cardiopulmonary disease involving both lungs. No interval change. [facility], , 02/11/2024 11:21 AM
--- NOTE | 2024-02-11 11:28 | P.PN ---
Progress Note - Text Progress Note Date: 02/11/24 DX pneumonia, chest tube, anemia, DNR No sign of external blood loss vitals OK Abdomen nontender,chest tube with serosanguinous drainage. Hgb down to 9. May need EGD if further decrease in Hgb. Currently on PPI
--- NOTE | 2024-02-11 12:59 | P.PN ---
Subjective Progress Note Date: 02/11/24 Rodriguez Jackson, is a 73-year-old male who presented to [facility] emergency room with a chief complaint of worsening shortness of breath, patient stated that he fell 2 weeks ago, he was complaining of left-sided rib pain especially when he takes a deep breath. He was also complaining of cough otherwise he denies any complaints. He was evaluated in the emergency room vital examination on presentation revealed a temperature of 98.8 pulse 118 respiration 18 blood pressure 130/78 pulse ox 97% on 10 L nonrebreather mask Laboratory data revealed a white blood count of 20.8 hemoglobin 12.2 platelet count 310 sodium 134 potassium 3.4 chloride 102 BUN 51 creatinine 1.77 AST 188 ALT 135 troponin 0.012 Testing in the emergency room revealed EKG done in the emergency room revealed atrial fibrillation with rapid ventricular response, chest x-ray revealed patchy left and right lower lobe infiltrates worse on the left. Patient was admitted to medical floor for further evaluation and treatment, pulmonary consultation and cardiology consultation were requested. On 01/23/2024 patient was seen and examined on the medical floor he is alert and oriented x 3 in no apparent distress he reports mild improvement in his shortness of breath, he is still complaining of cough and complaining of chest wall pain otherwise he denies any complaints there is no fever or chills no headache or dizziness no nausea or vomiting no abdominal pain no diarrhea no blood in the stools no burning with urination no frequency or urgency and no hematuria. His temperature is 98.8 pulse 108 respiration 26 blood pressure 138/92 pulse ox 91% on 11 L high flow cannula, white blood count is 26.7 hemoglobin 12.8 platelet count 281 BUN 31 creatinine 1.04 On 01/24/2024 patient is alert and oriented x 3. Patient still having some significant shortness of breath currently on 11 L nasal cannula. Cardiology, pu lmonary and infectious disease services are following. Patient remains on Cardizem drip. Patient remains on IV steroids and IV cefazolin. White blood cell 35.7, creatinine 1.18 bun 40. Current vital signs temp 97.8, heart 76, respiratory rate 26, blood pressure 112/73 with a pulse ox of 91% on 11 L On 01/25/2024 patient is alert and oriented x 3 patient reports some improvement with shortness of breath. Pulmonary cardiology and infectious disease services are following. Cardizem dean has been DC'd patient transition to p.o. Cardizekatey per cardiology continue IV antibiotics and steroids at this time.. Current vital signs temp 96.4, heart rate 74, respiratory rate 18, blood pressure 118/83 with a pulse ox of 97% on 10 L high flow. On 01/26/2024 patient was seen and examined on the medical floor he is alert and oriented x 3 in mild respiratory distress, he is maintained on high flow oxygen of 11 L/min, he is still complaining of cough and chest discomfort otherwise he denies any complaints, there is no fever or chills no headache or dizziness no chest pain no nausea or vomiting no abdominal pain no diarrhea no blood in the stools no burning with urination no frequency or urgency and no hematuria. Testing for COVID was positive yesterday. Pulmonary and infectious disease are following. On 01/27/2024 patient is alert and oriented x 3 patient continued to having increase oxygen demands. Per nursing staff pulmonary services were notified patient currently on high flow [address] scan of chest this morning which showed diffuse groundglass opacities and correlation for atypical pneumonia. Patient remains on IV Kefzol and prednisone. Pulmonary and infectious disease services following. Cardiology also following On 01/28/2024 patient is alert and oriented x 3. Patient at this time is resting comfortably in bed. Patient remains on Airvo 60%. Temp 97.6, heart rate 95, respiratory rate 24, blood pressure 100/67. Pulmonary cardiology and infectious disease are following patient remains on IV Kefzol and Solu-Medrol On 01/29/2024 patient was seen and examined on the medical floor he is alert and oriented x 3 in no apparent distress,he is still maintained on high flow oxygen, he is complaining of generalized weakness and complaining of constipation he has very poor oral intake, there is no fever or chills no headache or dizziness no chest pain, he has shortness of breath with any activity no palpitation he has continuous cough no nausea or vomiting no abdominal pain no diarrhea and no urinary symptoms. On 01/30/2024 patient was seen and examined in the ICU, he is alert responsive in no apparent distress maintained on high flow oxygen via Airvo, he was transferred to ICU due to worsening shortness of breath, chest x-ray today revealed interval development of a large left-sided pneumothorax estimated at 40%, he underwent chest tube placement, on the left. His vital exam reveals a temperature of 97.5 pulse 108 respiration 33 blood pressure 133/82 pulse ox is 98% on high flow cannula with FiO2 of 50% On 01/31/2024 patient remains in the intensive care unit. Chest tube in place. Current vital signs temp 97.9, heart rate 84, respiratory rate 23, blood pressure 102/71 with a pulse ox of 97% on high flow of 40%. Patient remains s hort of breath. Patient denies chest pain. Patient denies nausea vomiting or diarrhea. Patient denies any urinary burning or frequency On 02/01/2024 patient is alert and oriented x 3. Patient remains in the intensive care unit. Tube remains in place. Current vital signs temp 97.7, heart rate 79, respiratory rate 24, blood pressure 117/76 with a pulse ox of 100% on 6 L high flow. Patient reports some improvement with shortness of breath. Patient denies chest pain. Patient denies nausea vomiting or diarrhea. On 02/02/2024 patient was seen and examined in the ICU, he is alert and oriented x 3 in no apparent distress, he is complaining of discomfort at the chest tube site, and complaining of shortness of breath otherwise he denies any complaints there is no fever or chills no headache or dizziness, no chest pain, he has occasional cough no nausea or vomiting no abdominal pain no diarrhea no urinary symptoms. Temperature is 97.4 pulse 90 respiration 23 blood pressure 106/78 pulse ox 95% on 4 L nasal cannula, white blood count 45.7 hemoglobin 11.1 platelet count 199 BUN 45 creatinine 0.89 On 02/03/2024 patient remains in the ICU alert and oriented x 3. Patient still has chest tube complaining of some discomfort at site. Speech services at bedside assessing swallow still recommending nectar thick liquids. Current vital signs temp 97.6, heart rate 93, respiratory rate 21. Patient denies chest pain or shortness of breath. Patient denies nausea vomiting or diarrhea. Patient denies any urinary burning and frequency. On 02/04/2024 patient was seen and examined in the intensive care unit, he is alert and oriented in no apparent distress, he is complaining of pain in the chest wall site of the chest tube otherwise he denies any complaints, there is no fever or chills no headache or dizziness no chest pain no shortness of breath no cough no nausea or vomiting no abdominal pain no diarrhea no urinary symptoms, temperature is 97.5 pulse 89 respiration 16 blood pressure 108/68 pulse ox 96% on 4 L nasal cannula. His white blood count is 28.9 hemoglobin 11.0 platelet count 147 sodium 136 potassium 3.9 chloride 111 CO2 23 BUN 30 creatinine 0.94 On 02/05/2024 patient remains in the intensive care unit alert and oriented 3. Patient is down to 2 L. Chest tube remains in place.Patient's appetite remains poor patient has been started on Megace. Will consult when necessary for possible discharge planning. Patient denies chest pain or shortness breath. Patient denies nausea vomiting or diarrhea. Patient denies any urinary burning or frequency. Current vital signs temp 97.6, heart rate 80, respiratory rate 19,, Blood pressure 98/70 with pulse ox 95% on 2 L On 02/06/2024 patient was seen and examined on the telemetry floor, he is alert and oriented x 3. Current vital signs temp 97.9, heart rate 93, respiratory rate 18. blood pressure 122/60 Patient denies chest pain or shortness of breath. Patient denies nausea vomiting or diarrhea. Patient denies any urinary burning and frequency. On 03/05/2024 patient is alert and oriented x 3. Patient complaining about difficulty sleeping melatonin added. Discharge planning to [facility]. Patient remain s with chest tube awaiting further recommendations from pulmonary services. Current vital signs temp 97.3, heart rate 78, respiratory rate 18, blood pressure 133/80 with a pulse ox of 93% on 4 L. Patient denies chest pain or shortness of breath. Patient denies nausea vomiting or diarrhea. Patient denies any urinary burning or frequency On 02/08/2024 patient is alert and oriented x 3. Cardiothoracic surgery was consulted due to left-sided pneumothorax with chest tube placement with continuous airleak at this time recommendations to continue wall suction and will monitor. Patient denies chest pain or shortness of breath. Patient denies nausea vomiting or diarrhea. Patient denies any urinary burning or frequency. Current temp 97.3, heart rate 68, respiratory rate 18, blood pressure 96/63 with a pulse ox of 92% on 4 L On 02/09/2024 patient is alert and oriented x 3. Patient was transferred to the intensive care unit last night due to large bloody bowel movement and hypotension. At this time patient's Eliquis has been on hold. Surgical services have been consulted. Patient denies chest pain or shortness of breath. Patient denies nausea vomiting or diarrhea. Patient denies any urinary burning or frequency. Patient may require norepinephrine for blood pressure support co ntinue ICU management at this time. Critical care services following On 02/10/2024 patient is alert and oriented x 3. Per nursing staff patient has had no further episodes of large-volume bloody bowel movement. Patient still having some hypotension. Patient was evaluated by surgical services Eliquis remains on hold hemoglobin remained stable continue monitoring at this time. Patient also being followed by cardiothoracic surgery chest tube remains to suction at this time. Patient denies chest pain or shortness of breath. Patient denies any urinary burning or frequency. Patient denies nausea vomiting or diarrhea. On 02/11/2024 patient was seen and examined in the ICU, he is alert and oriented x 3 in no apparent distress, he is still complaining of left-sided chest wall pain site of his chest tube, otherwise he denies any complaints there is no fever or chills no headache or dizziness no chest pain no shortness of breath no cough no nausea or vomiting no abdominal pain no diarrhea no blood in the stools no burning with urination no frequency or urgency and no hematuria, patient has very low oral intake, he was encouraged in length in regard to increasing his diet and taking some protein supplements, albumin is low to 1.7, alternatively patient may need a Dobbhoff tube with enteral feeding. Will continue to follow closely Objective - Vital Signs Vital signs: Vital Signs Temp 98.2 F 02/11/24 04:00 Pulse 87 02/11/24 06:30 Resp 17 02/11/24 06:30 BP 100/70 02/11/24 06:15 Pulse Ox 95 02/11/24 07:30 FiO2 91 02/09/24 08:33 Intake & Output 02/10/24 02/11/24 02/11/24 18:59 06:59 18:59 Intake Total 3628.811 1682 Output Total 245 335 Balance 3383.811 1347 Weight 89 kg Intake: IV 3175 1208 Fluconazole in NaCl,Iso- 50 Osm 100 mg In Saline 1 50ml.bag @ 50 mls/hr IVPB DAILY [facility] Rx#:[id number] Piperacillin-Tazobactam 3 125 175 .375 gm In Sodium Chloride 0.9% 100 ml @ 25 mls/hr IVPB Q8HR [facility] Rx# :[id number] Potassium Chloride 20 meq 200 In Water For Injection 1 100ml.bag @ 50 mls/hr IVPB Q2H [facility] Rx#: [id number] Pressure Bag 33 Sodium Chloride 0.9% 1, 1000 800 000 ml @ 100 mls/hr IV . Q10H [facility] Rx#:[id number] Sodium Chloride 0.9% 1, 2000 000 ml @ 999 mls/hr IV . Q1H1M [facility] Rx#:[id number] Intake, IV Titration 53.811 Amount Norepinephrine 8 mg In 53.811 Sodium Chloride 0.9% 250 ml @ 0.03 MCG/KG/MIN 4. 975 mls/hr IV .Q24H [facility] Rx#:[id number] Oral 400 474 Output: Chest Tube Drainage 10 Left Left Pleural/ 10 Mediastinal Urine 245 325 Other: Voiding Method Indwelling Catheter Indwelling Catheter ABP, PAP, CO, CI - Last Documented Arterial Blood Pressure 101/62 - Exam In general patient is alert and oriented x 3 in no distress HEENT head normocephalic and atraumatic Neck is supple no JVD no goiter no lymphadenopathy no carotid bruit Chest examination reveals a scattered crackles bilaterally no wheezing Cardiac exam reveals irregular heart sounds S1 and S2 with tachycardia no gallops no murmurs Abdomen is soft nontender no organomegaly with normal bowel sounds Extremity exam reveals no edema no cyanosis or clubbing Neurological examination reveals no gross focal deficits - Labs CBC & Chem 7: 02/11/24 05:06 02/11/24 05:06 Labs: Abnormal Lab Results - Last 24 Hours (Table) 02/09/24 02/10/24 02/10/24 Range/Units 08:48 09:16 18:09 WBC (3.8-10.6) k/uL RBC (4.30-5.90) m/uL Hgb (13.0-17.5) gm/dL Hct (39.0-53.0) % MCV (80.0-100.0) fL RDW (11.5-15.5) % Plt Count (150-450) k/uL Neutrophils # (1.3-7.7) k/uL Potassium 3.3 L (3.5-5.1) mmol/L Chloride 115 H (98-107) mmol/L Carbon Dioxide 15 L (22-30) mmol/L BUN 40 H (9-20) mg/dL Creatinine 1.58 H (0.66-1.25) mg/dL Glucose (74-99) mg/dL POC Glucose (mg/dL) 119 H (70-110) mg/dL Calcium 6.7 L (8.4-10.2) mg/dL Total Bilirubin 1.6 H (0.2-1.3) mg/dL Alkaline Phosphatase 226 H (38-126) U/L Total Protein 4.4 L (6.3-8.2) g/dL Albumin 1.8 L (3.5-5.0) g/dL Crossmatch See Detail 02/10/24 02/10/24 02/11/24 Range/Units 20:20 20:21 05:06 WBC (3.8-10.6) k/uL RBC (4.30-5.90) m/uL Hgb (13.0-17.5) gm/dL Hct (39.0-53.0) % MCV (80.0-100.0) fL RDW (11.5-15.5) % Plt Count (150-450) k/uL Neutrophils # (1.3-7.7) k/uL Potassium 3.2 L (3.5-5.1) mmol/L Chloride 120 H (98-107) mmol/L Carbon Dioxide 14 L (22-30) mmol/L BUN 35 H (9-20) mg/dL Creatinine 1.31 H (0.66-1.25) mg/dL Glucose 104 H (74-99) mg/dL POC Glucose (mg/dL) 126 H (70-110) mg/dL Calcium 6.4 L* (8.4-10.2) mg/dL Total Bilirubin (0.2-1.3) mg/dL Alkaline Phosphatase 198 H (38-126) U/L Total Protein 4.1 L (6.3-8.2) g/dL Albumin 1.7 L (3.5-5.0) g/dL Crossmatch 02/11/24 Range/Units 05:06 WBC 24.0 H (3.8-10.6) k/uL RBC 2.83 L (4.30-5.90) m/uL Hgb 9.0 L (13.0-17.5) gm/dL Hct 28.6 L (39.0-53.0) % MCV 101.1 H (80.0-100.0) fL RDW 17.3 H (11.5-15.5) % Plt Count 134 L (150-450) k/uL Neutrophils # 22.2 H (1.3-7.7) k/uL Potassium (3.5-5.1) mmol/L Chloride (98-107) mmol/L Carbon Dioxide (22-30) mmol/L BUN (9-20) mg/dL Creatinine (0.66-1.25) mg/dL Glucose (74-99) mg/dL POC Glucose (mg/dL) (70-110) mg/dL Calcium (8.4-10.2) mg/dL Total Bilirubin (0.2-1.3) mg/dL Alkaline Phosphatase (38-126) U/L Total Protein (6.3-8.2) g/dL Albumin (3.5-5.0) g/dL Crossmatch Assessment and Plan Assessment: 1. Pneumonia with sepsis as evident by elevated lactic acid and leukocytosis 2. Acute kidney injury secondary to sepsis and dehydration, kidney function improved significantly since admission 3. History of atrial fibrillation maintained on Eliquis, with episodes of rapid ventricular response during this presentation 4. History of CHF 5. Acute hypoxic respiratory failure requiring high flow oxygen supplements pulmonary are following 6. Elevated liver enzymes we will hold statin at this time and recheck 7. Positive blood culture for Staphylococcus aureus, consultation for infectious disease was initiated 8. COVID-19 positive 9. Left-sided pneumothorax requiring left-sided chest tube insertion 10. GI bleed. Surgical services consulted Eliquis currently on hold 11. Hypotension secondary to above patient currently in ICU may require vasopressors for blood pressure support DVT prophylaxis Eliquis. GI prophylaxis Protonix Pulmonary services consulted, infectious disease cardiology consultation requested echocardiogram ordered Blood and sputum cultures ordered Repeat labs ordered
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
[2024-02-11 16:35] LABS: Glucose,Whole Blood 236 mg/dL (70-110)
[2024-02-11] MEDS: CALCIUM CARB-VIT D 500 MG-5 MCG TAB PO SCH (17:26)
[2024-02-11 20:36] LABS: Glucose,Whole Blood 185 mg/dL (70-110)
[2024-02-11 23:44] LABS: Glucose,Whole Blood 92 mg/dL (70-110)
[2024-02-12] MEDS: FUROSEMIDE 10 MG/ML 4 ML VIAL IV STA ×2 (00:33→09:18)
[2024-02-12 05:38] LABS: Glucose,Whole Blood 87 mg/dL (70-110)
[2024-02-12 05:52] LABS: African American GFR (CKD) 71 (>60 ml/min/1.73 sqM); Anion Gap 4 mmol/L; Anisocytosis Slight; Basophils % (A) 0 %; Blood Urea Nitrogen 33 mg/dL (9-20); Calcium 6.8 mg/dL (8.4-10.2); Carbon Dioxide 16 mmol/L (22-30); Chloride 121 mmol/L (98-107); Eosinophils # (A) 0.2 k/uL (0-0.7); Eosinophils % (A) 1 %; Glucose 85 mg/dL (74-99); HGB 8.7 gm/dL (13.0-17.5); Hypochromasia Slight; Lymphocytes % (A) 4 %; MCH 32.8 pg (25.0-35.0); MCHC 32.3 g/dL (31.0-37.0); MCV 101.3 fL (80.0-100.0); Macrocytosis Moderate; Magnesium 1.8 mg/dL (1.6-2.3); Mean Platelet Volume 16.1; Monocytes # (A) 0.3 k/uL (0-1.0); Monocytes % (A) 1 %; Neutrophils # (A) 20.8 k/uL (1.3-7.7); Neutrophils % (A) 93 %; Non-African American GFR(CKD) 61 (>60 ml/min/1.73 sqM); Platelet Count 127 k/uL (150-450); Potassium 3.4 mmol/L (3.5-5.1); RBC 2.67 m/uL (4.30-5.90); RDW 18.5 % (11.5-15.5); Sodium 141 mmol/L (137-145); WBC 22.5 k/uL (3.8-10.6)
[2024-02-12] MEDS: POTASSIUM CHLORIDE ER 20 MEQ TAB.ER PO SCH (06:31)
[2024-02-12] MEDS: MAGNESIUM SULFATE-D5W PMX 1 GM in DEXTROSE/WATER 1 100ML.BAG IVPB ONE (06:32)
--- NOTE | 2024-02-12 06:57 | XR ---
EXAMINATION TYPE: XR chest 1V portable DATE OF EXAM: 02/12/2024 COMPARISON: 02/11/2024 CLINICAL INDICATION: Male, 73 years old with history of Left pneumothorax; TECHNIQUE: Single frontal view of the chest is obtained. FINDINGS: There is a left-sided chest tube unchanged in position. There is a tiny loculated pneumothorax adjace nt to the chest tube tip. The diffuse interstitial and small airspace process is stable. There are stable small bilateral pleural effusions, right greater than left. Heart size is normal. The osseous structures are intact. IMPRESSION: 1. Stable marked bilateral acute cardiopulmonary disease. 2. Small loculated pneumothorax adjacent to the left chest tube tip. [facility], , 02/12/2024 6:55 AM
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
--- NOTE | 2024-02-12 09:11 | P.PN ---
Subjective Progress Note Date: 02/12/24 patient remains stable. There is no sign of GI bleed. His he will was 8.7 Objective - Vital Signs Vital signs: Vital Signs Temp 98.7 F 02/12/24 04:00 Pulse 93 02/12/24 07:00 Resp 21 02/12/24 07:00 BP 89/63 02/12/24 06:45 Pulse Ox 94 L 02/12/24 07:00 FiO2 60 02/12/24 08:51 Intake & Output 02/11/24 02/12/24 02/12/24 18:59 06:59 18:59 Intake Total 2008.050 1616.072 Output Total 320 1895 Balance 1688.050 -278.928 Weight 89 kg 90 kg Intake: IV 1236 1464 Piperacillin-Tazobactam 3 125 .375 gm In Sodium Chloride 0.9% 100 ml @ 25 mls/hr IVPB Q8HR [facility] Rx# :[id number] Pressure Bag 36 39 Sodium Chloride 0.9% 1, 1200 1300 000 ml @ 100 mls/hr IV . Q10H [facility] Rx#:[id number] Intake, IV Titration 222.050 52.072 Amount Norepinephrine 8 mg In 222.050 52.072 Sodium Chloride 0.9% 250 ml @ 0.03 MCG/KG/MIN 4. 975 mls/hr IV .Q24H [facility] Rx#:[id number] Oral 550 100 Output: Chest Tube Drainage 0 Left Left Pleural/ 0 Mediastinal Urine 320 1895 Other: Voiding Method Indwelling Catheter Indwelling Catheter # Bowel Movements 1 ABP, PAP, CO, CI - Last Documented Arterial Blood Pressure 99/69 - Labs CBC & Chem 7: 02/12/24 05:27 02/12/24 05:27 Labs: Abnormal Lab Results - Last 24 Hours (Table) 02/11/24 02/11/24 02/11/24 Range/Units 11:17 16:34 20:35 WBC (3.8-10.6) k/uL RBC (4.30-5.90) m/uL Hgb (13.0-17.5) gm/dL Hct (39.0-53.0) % MCV (80.0-100.0) fL RDW (11.5-15.5) % Plt Count (150-450) k/uL Neutrophils # (1.3-7.7) k/uL Potassium (3.5-5.1) mmol/L Chloride (98-107) mmol/L Carbon Dioxide (22-30) mmol/L BUN (9-20) mg/dL POC Glucose (mg/dL) 168 H 236 H 185 H (70-110) mg/dL Calcium (8.4-10.2) mg/dL 02/12/24 02/12/24 02/12/24 Range/Units 05:27 05:27 05:27 WBC 22.5 H (3.8-10.6) k/uL RBC 2.67 L (4.30-5.90) m/uL Hgb 8.7 L (13.0-17.5) gm/dL Hct 27.0 L (39.0-53.0) % MCV 101.3 H (80.0-100.0) fL RDW 18.5 H (11.5-15.5) % Plt Count 127 L (150-450) k/uL Neutrophils # 20.8 H (1.3-7.7) k/uL Potassium 3.4 L (3.5-5.1) mmol/L Chloride 121 H (98-107) mmol/L Carbon Dioxide 16 L (22-30) mmol/L BUN 33 H (9-20) mg/dL POC Glucose (mg/dL) (70-110) mg/dL Calcium 6.8 L 6.9 L (8.4-10.2) mg/dL
--- NOTE | 2024-02-12 09:34 | P.PN ---
Subjective Progress Note Date: 02/12/24 Rodriguez Jackson, is a 73-year-old male who presented to [facility] emergency room with a chief complaint of worsening shortness of breath, patient stated that he fell 2 weeks ago, he was complaining of left-sided rib pain especially when he takes a deep breath. He was also complaining of cough otherwise he denies any complaints. He was evaluated in the emergency room vital examination on presentation revealed a temperature of 98.8 pulse 118 respiration 18 blood pressure 130/78 pulse ox 97% on 10 L nonrebreather mask Laboratory data revealed a white blood count of 20.8 hemoglobin 12.2 platelet count 310 sodium 134 potassium 3.4 chloride 102 BUN 51 creatinine 1.77 AST 188 ALT 135 troponin 0.012 Testing in the emergency room revealed EKG done in the emergency room revealed atrial fibrillation with rapid ventricular response, chest x-ray revealed patchy left and right lower lobe infiltrates worse on the left. Patient was admitted to medical floor for further evaluation and treatment, pulmonary consultation and cardiology consultation were requested. On 01/23/2024 patient was seen and examined on the medical floor he is alert and oriented x 3 in no apparent distress he reports mild improvement in his shortness of breath, he is still complaining of cough and complaining of chest wall pain otherwise he denies any complaints there is no fever or chills no headache or dizziness no nausea or vomiting no abdominal pain no diarrhea no blood in the stools no burning with urination no frequency or urgency and no hematuria. His temperature is 98.8 pulse 108 respiration 26 blood pressure 138/92 pulse ox 91% on 11 L high flow cannula, white blood count is 26.7 hemoglobin 12.8 platelet count 281 BUN 31 creatinine 1.04 On 01/24/2024 patient is alert and oriented x 3. Patient still having some significant shortness of breath currently on 11 L nasal cannula. Cardiology, pu lmonary and infectious disease services are following. Patient remains on Cardizem drip. Patient remains on IV steroids and IV cefazolin. White blood cell 35.7, creatinine 1.18 bun 40. Current vital signs temp 97.8, heart 76, respiratory rate 26, blood pressure 112/73 with a pulse ox of 91% on 11 L On 01/25/2024 patient is alert and oriented x 3 patient reports some improvement with shortness of breath. Pulmonary cardiology and infectious disease services are following. Cardizem dean has been DC'd patient transition to p.o. Cardizekatey per cardiology continue IV antibiotics and steroids at this time.. Current vital signs temp 96.4, heart rate 74, respiratory rate 18, blood pressure 118/83 with a pulse ox of 97% on 10 L high flow. On 01/26/2024 patient was seen and examined on the medical floor he is alert and oriented x 3 in mild respiratory distress, he is maintained on high flow oxygen of 11 L/min, he is still complaining of cough and chest discomfort otherwise he denies any complaints, there is no fever or chills no headache or dizziness no chest pain no nausea or vomiting no abdominal pain no diarrhea no blood in the stools no burning with urination no frequency or urgency and no hematuria. Testing for COVID was positive yesterday. Pulmonary and infectious disease are following. On 01/27/2024 patient is alert and oriented x 3 patient continued to having increase oxygen demands. Per nursing staff pulmonary services were notified patient currently on high flow [address] scan of chest this morning which showed diffuse groundglass opacities and correlation for atypical pneumonia. Patient remains on IV Kefzol and prednisone. Pulmonary and infectious disease services following. Cardiology also following On 01/28/2024 patient is alert and oriented x 3. Patient at this time is resting comfortably in bed. Patient remains on Airvo 60%. Temp 97.6, heart rate 95, respiratory rate 24, blood pressure 100/67. Pulmonary cardiology and infectious disease are following patient remains on IV Kefzol and Solu-Medrol On 01/29/2024 patient was seen and examined on the medical floor he is alert and oriented x 3 in no apparent distress,he is still maintained on high flow oxygen, he is complaining of generalized weakness and complaining of constipation he has very poor oral intake, there is no fever or chills no headache or dizziness no chest pain, he has shortness of breath with any activity no palpitation he has continuous cough no nausea or vomiting no abdominal pain no diarrhea and no urinary symptoms. On 01/30/2024 patient was seen and examined in the ICU, he is alert responsive in no apparent distress maintained on high flow oxygen via Airvo, he was transferred to ICU due to worsening shortness of breath, chest x-ray today revealed interval development of a large left-sided pneumothorax estimated at 40%, he underwent chest tube placement, on the left. His vital exam reveals a temperature of 97.5 pulse 108 respiration 33 blood pressure 133/82 pulse ox is 98% on high flow cannula with FiO2 of 50% On 01/31/2024 patient remains in the intensive care unit. Chest tube in place. Current vital signs temp 97.9, heart rate 84, respiratory rate 23, blood pressure 102/71 with a pulse ox of 97% on high flow of 40%. Patient remains s hort of breath. Patient denies chest pain. Patient denies nausea vomiting or diarrhea. Patient denies any urinary burning or frequency On 02/01/2024 patient is alert and oriented x 3. Patient remains in the intensive care unit. Tube remains in place. Current vital signs temp 97.7, heart rate 79, respiratory rate 24, blood pressure 117/76 with a pulse ox of 100% on 6 L high flow. Patient reports some improvement with shortness of breath. Patient denies chest pain. Patient denies nausea vomiting or diarrhea. On 02/02/2024 patient was seen and examined in the ICU, he is alert and oriented x 3 in no apparent distress, he is complaining of discomfort at the chest tube site, and complaining of shortness of breath otherwise he denies any complaints there is no fever or chills no headache or dizziness, no chest pain, he has occasional cough no nausea or vomiting no abdominal pain no diarrhea no urinary symptoms. Temperature is 97.4 pulse 90 respiration 23 blood pressure 106/78 pulse ox 95% on 4 L nasal cannula, white blood count 45.7 hemoglobin 11.1 platelet count 199 BUN 45 creatinine 0.89 On 02/03/2024 patient remains in the ICU alert and oriented x 3. Patient still has chest tube complaining of some discomfort at site. Speech services at bedside assessing swallow still recommending nectar thick liquids. Current vital signs temp 97.6, heart rate 93, respiratory rate 21. Patient denies chest pain or shortness of breath. Patient denies nausea vomiting or diarrhea. Patient denies any urinary burning and frequency. On 02/04/2024 patient was seen and examined in the intensive care unit, he is alert and oriented in no apparent distress, he is complaining of pain in the chest wall site of the chest tube otherwise he denies any complaints, there is no fever or chills no headache or dizziness no chest pain no shortness of breath no cough no nausea or vomiting no abdominal pain no diarrhea no urinary symptoms, temperature is 97.5 pulse 89 respiration 16 blood pressure 108/68 pulse ox 96% on 4 L nasal cannula. His white blood count is 28.9 hemoglobin 11.0 platelet count 147 sodium 136 potassium 3.9 chloride 111 CO2 23 BUN 30 creatinine 0.94 On 02/05/2024 patient remains in the intensive care unit alert and oriented 3. Patient is down to 2 L. Chest tube remains in place.Patient's appetite remains poor patient has been started on Megace. Will consult when necessary for possible discharge planning. Patient denies chest pain or shortness breath. Patient denies nausea vomiting or diarrhea. Patient denies any urinary burning or frequency. Current vital signs temp 97.6, heart rate 80, respiratory rate 19,, Blood pressure 98/70 with pulse ox 95% on 2 L On 02/06/2024 patient was seen and examined on the telemetry floor, he is alert and oriented x 3. Current vital signs temp 97.9, heart rate 93, respiratory rate 18. blood pressure 122/60 Patient denies chest pain or shortness of breath. Patient denies nausea vomiting or diarrhea. Patient denies any urinary burning and frequency. On 03/05/2024 patient is alert and oriented x 3. Patient complaining about difficulty sleeping melatonin added. Discharge planning to [facility]. Patient remain s with chest tube awaiting further recommendations from pulmonary services. Current vital signs temp 97.3, heart rate 78, respiratory rate 18, blood pressure 133/80 with a pulse ox of 93% on 4 L. Patient denies chest pain or shortness of breath. Patient denies nausea vomiting or diarrhea. Patient denies any urinary burning or frequency On 02/08/2024 patient is alert and oriented x 3. Cardiothoracic surgery was consulted due to left-sided pneumothorax with chest tube placement with continuous airleak at this time recommendations to continue wall suction and will monitor. Patient denies chest pain or shortness of breath. Patient denies nausea vomiting or diarrhea. Patient denies any urinary burning or frequency. Current temp 97.3, heart rate 68, respiratory rate 18, blood pressure 96/63 with a pulse ox of 92% on 4 L On 02/09/2024 patient is alert and oriented x 3. Patient was transferred to the intensive care unit last night due to large bloody bowel movement and hypotension. At this time patient's Eliquis has been on hold. Surgical services have been consulted. Patient denies chest pain or shortness of breath. Patient denies nausea vomiting or diarrhea. Patient denies any urinary burning or frequency. Patient may require norepinephrine for blood pressure support co ntinue ICU management at this time. Critical care services following On 02/10/2024 patient is alert and oriented x 3. Per nursing staff patient has had no further episodes of large-volume bloody bowel movement. Patient still having some hypotension. Patient was evaluated by surgical services Eliquis remains on hold hemoglobin remained stable continue monitoring at this time. Patient also being followed by cardiothoracic surgery chest tube remains to suction at this time. Patient denies chest pain or shortness of breath. Patient denies any urinary burning or frequency. Patient denies nausea vomiting or diarrhea. On 02/11/2024 patient was seen and examined in the ICU, he is alert and oriented x 3 in no apparent distress, he is still complaining of left-sided chest wall pain site of his chest tube, otherwise he denies any complaints there is no fever or chills no headache or dizziness no chest pain no shortness of breath no cough no nausea or vomiting no abdominal pain no diarrhea no blood in the stools no burning with urination no frequency or urgency and no hematuria, patient has very low oral intake, he was encouraged in length in regard to increasing his diet and taking some protein supplements, albumin is low to 1.7, alternatively patient may need a Dobbhoff tube with enteral feeding. Will continue to follow closely On 02/12/2024 patient is alert and oriented x 3 remains in the ICU. Patient remains on IV Lasix patient having increased lower extremity edema. Appetite remains poor. Current vital signs temp 98.7, heart rate 89, respiratory rate 19, blood pressure 88/52 with a pulse ox of 93% on Airvo 60%. Patient denies chest pain or shortness of breath. Patient denies nausea vomiting or diarrhea. Patient denies any urinary burning or frequency Objective - Vital Signs Vital signs: Vital Signs Temp 98.7 F 02/12/24 04:00 Pulse 93 02/12/24 07:00 Resp 21 02/12/24 07:00 BP 89/63 02/12/24 06:45 Pulse Ox 94 L 02/12/24 07:00 FiO2 60 02/12/24 08:51 Intake & Output 02/11/24 02/12/24 02/12/24 18:59 06:59 18:59 Intake Total 2008.050 1616.072 Output Total 320 1895 Balance 1688.050 -278.928 Weight 89 kg 90 kg Intake: IV 1236 1464 Piperacillin-Tazobactam 3 125 .375 gm In Sodium Chloride 0.9% 100 ml @ 25 mls/hr IVPB Q8HR [facility] Rx# :[id number] Pressure Bag 36 39 Sodium Chloride 0.9% 1, 1200 1300 000 ml @ 100 mls/hr IV . Q10H [facility] Rx#:[id number] Intake, IV Titration 222.050 52.072 Amount Norepinephrine 8 mg In 222.050 52.072 Sodium Chloride 0.9% 250 ml @ 0.03 MCG/KG/MIN 4. 975 mls/hr IV .Q24H [facility] Rx#:[id number] Oral 550 100 Output: Chest Tube Drainage 0 Left Left Pleural/ 0 Mediastinal Urine 320 1895 Other: Voiding Method Indwelling Catheter Indwelling Catheter # Bowel Movements 1 ABP, PAP, CO, CI - Last Documented Arterial Blood Pressure 99/69 - Exam In general patient is alert and oriented x 3 in no distress HEENT head normocephalic and atraumatic Neck is supple no JVD no goiter no lymphadenopathy no carotid bruit Chest examination reveals a scattered crackles bilaterally no wheezing Cardiac exam reveals irregular heart sounds S1 and S2 with tachycardia no gallops no murmurs Abdomen is soft nontender no organomegaly with normal bowel sounds Extremity exam reveals no edema no cyanosis or clubbing Neurological examination reveals no gross focal deficits - Labs CBC & Chem 7: 02/12/24 05:27 02/12/24 05:27 Labs: Abnormal Lab Results - Last 24 Hours (Table) 02/11/24 02/11/24 02/11/24 Range/Units 11:17 16:34 20:35 WBC (3.8-10.6) k/uL RBC (4.30-5.90) m/uL Hgb (13.0-17.5) gm/dL Hct (39.0-53.0) % MCV (80.0-100.0) fL RDW (11.5-15.5) % Plt Count (150-450) k/uL Neutrophils # (1.3-7.7) k/uL Potassium (3.5-5.1) mmol/L Chloride (98-107) mmol/L Carbon Dioxide (22-30) mmol/L BUN (9-20) mg/dL POC Glucose (mg/dL) 168 H 236 H 185 H (70-110) mg/dL Calcium (8.4-10.2) mg/dL 02/12/24 02/12/24 02/12/24 Range/Units 05:27 05:27 05:27 WBC 22.5 H (3.8-10.6) k/uL RBC 2.67 L (4.30-5.90) m/uL Hgb 8.7 L (13.0-17.5) gm/dL Hct 27.0 L (39.0-53.0) % MCV 101.3 H (80.0-100.0) fL RDW 18.5 H (11.5-15.5) % Plt Count 127 L (150-450) k/uL Neutrophils # 20.8 H (1.3-7.7) k/uL Potassium 3.4 L (3.5-5.1) mmol/L Chloride 121 H (98-107) mmol/L Carbon Dioxide 16 L (22-30) mmol/L BUN 33 H (9-20) mg/dL POC Glucose (mg/dL) (70-110) mg/dL Calcium 6.8 L 6.9 L (8.4-10.2) mg/dL Assessment and Plan Assessment: 1. Pneumonia with sepsis as evident by elevated lactic acid and leukocytosis 2. Acute kidney injury secondary to sepsis and dehydration, kidney function improved significantly since admission 3. History of atrial fibrillation maintained on Eliquis, with episodes of rapid ventricular response during this presentation 4. History of CHF 5. Acute hypoxic respiratory failure requiring high flow oxygen supplements pulmonary are following 6. Elevated liver enzymes we will hold statin at this time and recheck 7. Positive blood culture for Staphylococcus aureus, consultation for infectious disease was initiated 8. COVID-19 positive 9. Left-sided pneumothorax requiring left-sided chest tube insertion 10. GI bleed. Surgical services consulted Eliquis currently on hold 11. Hypotension secondary to above patient currently in ICU may require vasopressors for blood pressure support DVT prophylaxis Eliquis. GI prophylaxis Protonix Pulmonary services consulted, infectious disease cardiology consultation requested echocardiogram ordered Blood and sputum cultures ordered Repeat labs ordered
[2024-02-12] MEDS: POTASSIUM CHLORIDE 20 MEQ in WATER FOR INJECTION 1 100ML.BAG IVPB SCH (10:27)
[2024-02-12 11:41] LABS: Glucose,Whole Blood 117 mg/dL (70-110)
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
[2024-02-12 17:39] LABS: Glucose,Whole Blood 141 mg/dL (70-110)
[2024-02-12 18:06] LABS: Glucose,Whole Blood 136 mg/dL (70-110)
[2024-02-12 20:04] LABS: Glucose,Whole Blood 271 mg/dL (70-110)
[2024-02-12] MEDS: FUROSEMIDE 10 MG/ML 4 ML VIAL IV SCH (20:54)
[2024-02-12 23:26] LABS: Glucose,Whole Blood 90 mg/dL (70-110)
[2024-02-13 04:56] LABS: Anisocytosis Slight; HGB 8.5 gm/dL (13.0-17.5); Hypochromasia Slight; MCH 33.3 pg (25.0-35.0); MCHC 32.8 g/dL (31.0-37.0); MCV 101.4 fL (80.0-100.0); Macrocytosis Moderate; Platelet Count 126 k/uL (150-450); Poikilocytosis Slight; RBC 2.56 m/uL (4.30-5.90); RDW 19.1 % (11.5-15.5); WBC 28.1 k/uL (3.8-10.6)
[2024-02-13 05:51] LABS: Ionized Calcium 4.4 mg/dL (4.5-5.3)
[2024-02-13 06:11] LABS: ALT 34 U/L (4-49); African American GFR (CKD) 78 (>60 ml/min/1.73 sqM); Anion Gap 4 mmol/L; Blood Urea Nitrogen 33 mg/dL (9-20); Calcium 6.9 mg/dL (8.4-10.2); Carbon Dioxide 16 mmol/L (22-30); Chloride 118 mmol/L (98-107); Glucose 72 mg/dL (74-99); Non-African American GFR(CKD) 67 (>60 ml/min/1.73 sqM); Sodium 138 mmol/L (137-145); Total Bilirubin 1.4 mg/dL (0.2-1.3)
[2024-02-13 06:21] LABS: AST 44 U/L (17-59); Albumin 1.7 g/dL (3.5-5.0); Alkaline Phosphatase 191 U/L (38-126); Magnesium 1.8 mg/dL (1.6-2.3); Potassium 4.2 mmol/L (3.5-5.1); Total Protein 4.3 g/dL (6.3-8.2)
[2024-02-13] MEDS: MAGNESIUM SULFATE-D5W PMX 1 GM in DEXTROSE/WATER 1 100ML.BAG IVPB ONE (07:45)
[2024-02-13 07:48] LABS: Glucose,Whole Blood 95 mg/dL (70-110)
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
--- NOTE | 2024-02-13 08:55 | PCN ---
PROCEDURE NOTE PROCEDURE PERFORMED: Placement of a right femoral triple-lumen catheter. PREOPERATIVE DIAGNOSES: Pneumonia, hypoxic respiratory failure, and hypotension. POSTOPERATIVE DIAGNOSES: Pneumonia, hypoxic respiratory failure, and hypotension. ANESTHESIA USED: 2 mL of 1% lidocaine. PROCEDURE IN DETAIL: The patient was placed in a supine position, the area of the right groin was prepared in a sterile fashion. Drapes were applied. The area was locally anesthetized, the right femoral vein was easily cannulated and a guidewire was placed. A triple-lumen catheter was inserted over the guidewire, the guidewire was removed. Good blood flow noted in the 3 different ports, line was secured using 3.0 silk sutures, no complications. Procedure was well tolerated. MMODL / IJN: [id number] /
--- NOTE | 2024-02-13 09:26 | XR ---
EXAMINATION TYPE: XR chest 1V portable DATE OF EXAM: 02/13/2024 4:55 AM COMPARISON: 02/12/2024 CLINICAL INDICATION: Male, 73 years old with history of Pneumothorax, TECHNIQUE: XR chest 1V portable view(s) obtained. FINDINGS: The heart size is normal. The pulmonary vasculature is normal. Diffuse increased lung markings are present. This is worse on the right. Left-sided chest tube is present. Previous lateral pneumothorax not identified. Minimal left apical p neumothorax may be present IMPRESSION: 1. Worsening right lung infiltrate. 2. Diminished left-sided pneumothorax. Chest suspicion [facility], , 02/13/2024 9:23 AM
--- NOTE | 2024-02-13 10:56 | P.PN ---
Subjective Progress Note Date: 02/13/24 SURGICAL PROGRESS NOTE CHIEF COMPLAINT: Shortness of breath HISTORY OF PRESENT ILLNESS: Patient remains in the ICU for hypotension. He is on levo. Surgical service is following in regards to GI bleed. Patient continues to have brown stools over the weekend. No signs of GI bleed. Hemoglobin 8.5. He is on Airvo. Has chest tube in place no pneumothorax. PHYSICAL EXAM: VITAL SIGNS: Reviewed. GENERAL: in no acute distress. ABDOMEN: Soft. Nondistended. Nontender. NEUROLOGIC: Awake and alert ASSESSMENT: 1. Possible Acute GI bleed, now resolved 2. Leukocytosis likely due to pneumonia and bacteremia 3. atrial fibrillation PLAN: -No surgical intervention planned -Continue to monitor for any signs or symptoms of bleeding Physician Extension Work Instructor note has been reviewed by physician. Signing provider agrees with the documented findings, assessment, and plan of care. Objective - Vital Signs Vital signs: Vital Signs Temp 97.6 F 02/13/24 08:00 Pulse 85 02/13/24 10:00 Resp 18 02/13/24 10:00 BP 83/55 02/13/24 10:00 Pulse Ox 94 L 02/13/24 10:00 FiO2 50 02/13/24 08:49 Intake & Output 02/12/24 02/13/24 02/13/24 18:59 06:59 18:59 Intake Total 1067.324 279.676 52 Output Total 1935 1405 295 Balance -867.676 -1125.324 -243 Weight 85.4 kg Intake: IV 233 156 52 Pressure Bag 33 36 12 Sodium Chloride 0.9% 1, 200 120 40 000 ml @ 10 mls/hr IV . Q24H [facility] Rx#:[id number] Intake, IV Titration 484.324 123.676 Amount Fluconazole in NaCl,Iso- 50 Osm 100 mg In Saline 1 50ml.bag @ 50 mls/hr IVPB DAILY [facility] Rx#:[id number] Norepinephrine 8 mg In 134.324 123.676 Sodium Chloride 0.9% 250 ml @ 0.03 MCG/KG/MIN 4. 975 mls/hr IV .Q24H [facility] Rx#:[id number] Piperacillin-Tazobactam 3 100 .375 gm In Sodium Chloride 0.9% 100 ml @ 25 mls/hr IVPB Q8HR [facility] Rx# :[id number] Potassium Chloride 20 meq 200 In Water For Injection 1 100ml.bag @ 50 mls/hr IVPB Q2H [facility] Rx#: [id number] Oral 350 Output: Chest Tube Drainage 35 Left Left Pleural/ 35 Mediastinal Urine 1900 1405 295 Other: Voiding Method Indwelling Catheter Indwelling Catheter Indwelling Catheter # Bowel Movements 2 ABP, PAP, CO, CI - Last Documented Arterial Blood Pressure 66/41 - Labs CBC & Chem 7: 02/13/24 04:45 02/13/24 04:45 Labs: Abnormal Lab Results - Last 24 Hours (Table) 02/12/24 02/12/24 02/12/24 Range/Units 11:40 17:37 18:05 WBC (3.8-10.6) k/uL RBC (4.30-5.90) m/uL Hgb (13.0-17.5) gm/dL Hct (39.0-53.0) % MCV (80.0-100.0) fL RDW (11.5-15.5) % Plt Count (150-450) k/uL Chloride (98-107) mmol/L Carbon Dioxide (22-30) mmol/L BUN (9-20) mg/dL Glucose (74-99) mg/dL POC Glucose (mg/dL) 117 H 141 H 136 H (70-110) mg/dL Calcium (8.4-10.2) mg/dL Ionized Calcium Sharda (4.5-5.3) mg/dL Total Bilirubin (0.2-1.3) mg/dL Alkaline Phosphatase (38-126) U/L Total Protein (6.3-8.2) g/dL Albumin (3.5-5.0) g/dL 02/12/24 02/13/24 02/13/24 Range/Units 20:02 04:45 04:45 WBC 28.1 H (3.8-10.6) k/uL RBC 2.56 L (4.30-5.90) m/uL Hgb 8.5 L (13.0-17.5) gm/dL Hct 26.0 L (39.0-53.0) % MCV 101.4 H (80.0-100.0) fL RDW 19.1 H (11.5-15.5) % Plt Count 126 L (150-450) k/uL Chloride 118 H (98-107) mmol/L Carbon Dioxide 16 L (22-30) mmol/L BUN 33 H (9-20) mg/dL Glucose 72 L (74-99) mg/dL POC Glucose (mg/dL) 271 H (70-110) mg/dL Calcium 6.9 L (8.4-10.2) mg/dL Ionized Calcium Sharda 4.4 L (4.5-5.3) mg/dL Total Bilirubin 1.4 H (0.2-1.3) mg/dL Alkaline Phosphatase 191 H (38-126) U/L Total Protein 4.3 L (6.3-8.2) g/dL Albumin 1.7 L (3.5-5.0) g/dL
[2024-02-13 12:11] LABS: Glucose,Whole Blood 130 mg/dL (70-110)
[2024-02-13 13:21] LABS: Prealbumin 12.4 mg/dL (18.0-42.0)
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
[2024-02-13 20:52] LABS: Glucose,Whole Blood 131 mg/dL (70-110)
[2024-02-14 00:10] LABS: Glucose,Whole Blood 116 mg/dL (70-110)
[2024-02-14 04:55] LABS: African American GFR (CKD) 74 (>60 ml/min/1.73 sqM); Anion Gap 3 mmol/L; Blood Urea Nitrogen 33 mg/dL (9-20); Calcium 7.1 mg/dL (8.4-10.2); Carbon Dioxide 16 mmol/L (22-30); Chloride 118 mmol/L (98-107); Glucose 95 mg/dL (74-99); Magnesium 1.8 mg/dL (1.6-2.3); Non-African American GFR(CKD) 64 (>60 ml/min/1.73 sqM); Potassium 3.7 mmol/L (3.5-5.1); Sodium 137 mmol/L (137-145)
[2024-02-14 06:08] LABS: Glucose,Whole Blood 99 mg/dL (70-110)
[2024-02-14 06:15] LABS: Anisocytosis Slight; HGB 8.9 gm/dL (13.0-17.5); Hypochromasia Marked; MCH 33.7 pg (25.0-35.0); MCHC 31.9 g/dL (31.0-37.0); MCV 105.6 fL (80.0-100.0); Macrocytosis Marked; Mean Platelet Volume 14.9; Platelet Count 139 k/uL (150-450); RBC 2.65 m/uL (4.30-5.90); RDW 19.7 % (11.5-15.5)
[2024-02-14] MEDS: POTASSIUM CHLORIDE ER 20 MEQ TAB.ER PO SCH (06:32)
[2024-02-14 07:52] LABS: Anisocytosis (M) Present; Eosinophils # (M) 0.29 k/uL (0-0.7); Hypochromasia (M) Present; Large Platelets Present; Lymphocytes # (M) 1.72 k/uL (1.0-4.8); Metamyelocytes # (M) 0.29 k/uL (0); Metamyelocytes % 1 %; Monocytes # (M) 0.29 k/uL (0-1.0); Neutrophils % (M) 93 %; Nucleated Red Blood Cells 2 /100 WBC (0-0); Target Cells Present; Total Cells Counted 200; WBC 28.6 k/uL (3.8-10.6)
[2024-02-14 07:53] LABS: Hypersegmented Neutrophils Present; Poikilocytosis (M) Present; Polychromasia Present
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
--- NOTE | 2024-02-14 08:37 | P.PN ---
Subjective Progress Note Date: 02/13/24 Principal diagnosis: Reason for follow-up is left-sided pneumonia and MSSA bacteremia Patient is a 73-year-old with a past medical history significant for atrial fibrillation heart failure , close head injury patient presenting to the hospital for evaluation of increasing shortness of breath left lower chest pain, patient has been diagnosed with left-sided pneumonia and did have a positive blood culture with MSSA prompted this consultation.Patient did have a chest x-ray morning of 01/30/2024 with evidence of left-sided pneumothorax in this patient who status post chest tube placement on 01/30/2024 by pulmonary On today's evaluation that is 02/13/2024, patient has been afebrile, patient is breathing slightly comfortably however still requiring high flow nasal cannula oxygen denies any worsening left-sided chest pain no nausea vomiting or diarrhea. Patient white count slightly up to 28.1 today creatinine 1.09 Objective - Vital Signs Vital signs: Vital Signs Temp 97.6 F 02/13/24 08:00 Pulse 87 02/13/24 11:15 Resp 17 02/13/24 11:15 BP 89/59 02/13/24 11:15 Pulse Ox 96 02/13/24 11:15 FiO2 50 02/13/24 08:49 Intake & Output 02/12/24 02/13/24 02/13/24 18:59 06:59 18:59 Intake Total 1067.324 279.676 65 Output Total 1935 1405 545 Balance -867.676 -1125.324 -480 Weight 85.4 kg Intake: IV 233 156 65 Pressure Bag 33 36 15 Sodium Chloride 0.9% 1, 200 120 50 000 ml @ 10 mls/hr IV . Q24H [facility] Rx#:[id number] Intake, IV Titration 484.324 123.676 Amount Fluconazole in NaCl,Iso- 50 Osm 100 mg In Saline 1 50ml.bag @ 50 mls/hr IVPB DAILY [facility] Rx#:[id number] Norepinephrine 8 mg In 134.324 123.676 Sodium Chloride 0.9% 250 ml @ 0.03 MCG/KG/MIN 4. 975 mls/hr IV .Q24H [facility] Rx#:[id number] Piperacillin-Tazobactam 3 100 .375 gm In Sodium Chloride 0.9% 100 ml @ 25 mls/hr IVPB Q8HR [facility] Rx# :[id number] Potassium Chloride 20 meq 200 In Water For Injection 1 100ml.bag @ 50 mls/hr IVPB Q2H [facility] Rx#: [id number] Oral 350 Output: Chest Tube Drainage 35 Left Left Pleural/ 35 Mediastinal Urine 1900 1405 545 Other: Voiding Method Indwelling Catheter Indwelling Catheter Indwelling Catheter # Bowel Movements 2 ABP, PAP, CO, CI - Last Documented Arterial Blood Pressure 67/64 - Exam GENERAL DESCRIPTION: An elderly male lying in bed in no distress RESPIRATORY SYSTEM: Unlabored breathing , close bedside left side HEART: S1 S2 regular rate and rhythm , ABDOMEN: Soft , no tenderness EXTREMITIES: No edema feet - Labs CBC & Chem 7: 02/14/24 04:36 02/14/24 04:36 Labs: Abnormal Lab Results - Last 24 Hours (Table) 02/12/24 02/12/24 02/12/24 Range/Units 17:37 18:05 20:02 WBC (3.8-10.6) k/uL RBC (4.30-5.90) m/uL Hgb (13.0-17.5) gm/dL Hct (39.0-53.0) % MCV (80.0-100.0) fL RDW (11.5-15.5) % Plt Count (150-450) k/uL Chloride (98-107) mmol/L Carbon Dioxide (22-30) mmol/L BUN (9-20) mg/dL Glucose (74-99) mg/dL POC Glucose (mg/dL) 141 H 136 H 271 H (70-110) mg/dL Calcium (8.4-10.2) mg/dL Ionized Calcium Sharda (4.5-5.3) mg/dL Total Bilirubin (0.2-1.3) mg/dL Alkaline Phosphatase (38-126) U/L Total Protein (6.3-8.2) g/dL Albumin (3.5-5.0) g/dL 02/13/24 02/13/24 02/13/24 Range/Units 04:45 04:45 12:09 WBC 28.1 H (3.8-10.6) k/uL RBC 2.56 L (4.30-5.90) m/uL Hgb 8.5 L (13.0-17.5) gm/dL Hct 26.0 L (39.0-53.0) % MCV 101.4 H (80.0-100.0) fL RDW 19.1 H (11.5-15.5) % Plt Count 126 L (150-450) k/uL Chloride 118 H (98-107) mmol/L Carbon Dioxide 16 L (22-30) mmol/L BUN 33 H (9-20) mg/dL Glucose 72 L (74-99) mg/dL POC Glucose (mg/dL) 130 H (70-110) mg/dL Calcium 6.9 L (8.4-10.2) mg/dL Ionized Calcium Sharda 4.4 L (4.5-5.3) mg/dL Total Bilirubin 1.4 H (0.2-1.3) mg/dL Alkaline Phosphatase 191 H (38-126) U/L Total Protein 4.3 L (6.3-8.2) g/dL Albumin 1.7 L (3.5-5.0) g/dL Assessment and Plan (1) Bacteremia due to methicillin susceptible Staphylococcus aureus (MSSA) Current Visit: Yes Status: Acute Code(s): R78.81 - BACTEREMIA; B95.61 - METHICILLIN SUSCEP STAPH INFCT CAUSING DIS CLASSD [id number] SNOMED Code(s): 513178439 (2) Pneumonia Current Visit: Yes Status: Acute Code(s): J18.9 - PNEUMONIA, UNSPECIFIED ORGANISM SNOMED Code(s): 761079236 (3) Sepsis Current Visit: Yes Status: Acute Code(s): A41.9 - SEPSIS, UNSPECIFIED ORGANISM SNOMED Code(s): 38243462 Plan: 1patient presented to hospital with sepsis in this patient who did have leukocytosis tachycardia meeting criteria for SIRS source is left lower lobe pneumonia 2-patient with MSSA bacteremia source likely pneumonia, blood culture repeat has been negative so far 3-patient CT of the chest did not show any empyema echocardiogram did not show any valvular abnormalities repeat blood culture negative 4patient did have complication of left-sided pneumothorax s/p is chest tube placement. Patient did have persistent leak CT surgery is closely following the patient considered to be high risk for any surgical procedure 5 the patient is afebrile the patient white count is slightly up today compared to yesterday and we will monitor closely 6-patient is being treated with Zosyn we will continue and will monitor clinical course closely Dictation was produced using [employer] dictation software. please excuse any grammatical, word or spelling errors.
--- NOTE | 2024-02-14 08:56 | P.PN ---
Subjective Progress Note Date: 02/13/24 Rodriguez Jackson, is a 73-year-old male who presented to [facility] emergency room with a chief complaint of worsening shortness of breath, patient stated that he fell 2 weeks ago, he was complaining of left-sided rib pain especially when he takes a deep breath. He was also complaining of cough otherwise he denies any complaints. He was evaluated in the emergency room vital examination on presentation revealed a temperature of 98.8 pulse 118 respiration 18 blood pressure 130/78 pulse ox 97% on 10 L nonrebreather mask Laboratory data revealed a white blood count of 20.8 hemoglobin 12.2 platelet count 310 sodium 134 potassium 3.4 chloride 102 BUN 51 creatinine 1.77 AST 188 ALT 135 troponin 0.012 Testing in the emergency room revealed EKG done in the emergency room revealed atrial fibrillation with rapid ventricular response, chest x-ray revealed patchy left and right lower lobe infiltrates worse on the left. Patient was admitted to medical floor for further evaluation and treatment, pulmonary consultation and cardiology consultation were requested. On 01/23/2024 patient was seen and examined on the medical floor he is alert and oriented x 3 in no apparent distress he reports mild improvement in his shortness of breath, he is still complaining of cough and complaining of chest wall pain otherwise he denies any complaints there is no fever or chills no headache or dizziness no nausea or vomiting no abdominal pain no diarrhea no blood in the stools no burning with urination no frequency or urgency and no hematuria. His temperature is 98.8 pulse 108 respiration 26 blood pressure 138/92 pulse ox 91% on 11 L high flow cannula, white blood count is 26.7 hemoglobin 12.8 platelet count 281 BUN 31 creatinine 1.04 On 01/24/2024 patient is alert and oriented x 3. Patient still having some significant shortness of breath currently on 11 L nasal cannula. Cardiology, pu lmonary and infectious disease services are following. Patient remains on Cardizem drip. Patient remains on IV steroids and IV cefazolin. White blood cell 35.7, creatinine 1.18 bun 40. Current vital signs temp 97.8, heart 76, respiratory rate 26, blood pressure 112/73 with a pulse ox of 91% on 11 L On 01/25/2024 patient is alert and oriented x 3 patient reports some improvement with shortness of breath. Pulmonary cardiology and infectious disease services are following. Cardizem dean has been DC'd patient transition to p.o. Cardizekatey per cardiology continue IV antibiotics and steroids at this time.. Current vital signs temp 96.4, heart rate 74, respiratory rate 18, blood pressure 118/83 with a pulse ox of 97% on 10 L high flow. On 01/26/2024 patient was seen and examined on the medical floor he is alert and oriented x 3 in mild respiratory distress, he is maintained on high flow oxygen of 11 L/min, he is still complaining of cough and chest discomfort otherwise he denies any complaints, there is no fever or chills no headache or dizziness no chest pain no nausea or vomiting no abdominal pain no diarrhea no blood in the stools no burning with urination no frequency or urgency and no hematuria. Testing for COVID was positive yesterday. Pulmonary and infectious disease are following. On 01/27/2024 patient is alert and oriented x 3 patient continued to having increase oxygen demands. Per nursing staff pulmonary services were notified patient currently on high flow [address] scan of chest this morning which showed diffuse groundglass opacities and correlation for atypical pneumonia. Patient remains on IV Kefzol and prednisone. Pulmonary and infectious disease services following. Cardiology also following On 01/28/2024 patient is alert and oriented x 3. Patient at this time is resting comfortably in bed. Patient remains on Airvo 60%. Temp 97.6, heart rate 95, respiratory rate 24, blood pressure 100/67. Pulmonary cardiology and infectious disease are following patient remains on IV Kefzol and Solu-Medrol On 01/29/2024 patient was seen and examined on the medical floor he is alert and oriented x 3 in no apparent distress,he is still maintained on high flow oxygen, he is complaining of generalized weakness and complaining of constipation he has very poor oral intake, there is no fever or chills no headache or dizziness no chest pain, he has shortness of breath with any activity no palpitation he has continuous cough no nausea or vomiting no abdominal pain no diarrhea and no urinary symptoms. On 01/30/2024 patient was seen and examined in the ICU, he is alert responsive in no apparent distress maintained on high flow oxygen via Airvo, he was transferred to ICU due to worsening shortness of breath, chest x-ray today revealed interval development of a large left-sided pneumothorax estimated at 40%, he underwent chest tube placement, on the left. His vital exam reveals a temperature of 97.5 pulse 108 respiration 33 blood pressure 133/82 pulse ox is 98% on high flow cannula with FiO2 of 50% On 01/31/2024 patient remains in the intensive care unit. Chest tube in place. Current vital signs temp 97.9, heart rate 84, respiratory rate 23, blood pressure 102/71 with a pulse ox of 97% on high flow of 40%. Patient remains s hort of breath. Patient denies chest pain. Patient denies nausea vomiting or diarrhea. Patient denies any urinary burning or frequency On 02/01/2024 patient is alert and oriented x 3. Patient remains in the intensive care unit. Tube remains in place. Current vital signs temp 97.7, heart rate 79, respiratory rate 24, blood pressure 117/76 with a pulse ox of 100% on 6 L high flow. Patient reports some improvement with shortness of breath. Patient denies chest pain. Patient denies nausea vomiting or diarrhea. On 02/02/2024 patient was seen and examined in the ICU, he is alert and oriented x 3 in no apparent distress, he is complaining of discomfort at the chest tube site, and complaining of shortness of breath otherwise he denies any complaints there is no fever or chills no headache or dizziness, no chest pain, he has occasional cough no nausea or vomiting no abdominal pain no diarrhea no urinary symptoms. Temperature is 97.4 pulse 90 respiration 23 blood pressure 106/78 pulse ox 95% on 4 L nasal cannula, white blood count 45.7 hemoglobin 11.1 platelet count 199 BUN 45 creatinine 0.89 On 02/03/2024 patient remains in the ICU alert and oriented x 3. Patient still has chest tube complaining of some discomfort at site. Speech services at bedside assessing swallow still recommending nectar thick liquids. Current vital signs temp 97.6, heart rate 93, respiratory rate 21. Patient denies chest pain or shortness of breath. Patient denies nausea vomiting or diarrhea. Patient denies any urinary burning and frequency. On 02/04/2024 patient was seen and examined in the intensive care unit, he is alert and oriented in no apparent distress, he is complaining of pain in the chest wall site of the chest tube otherwise he denies any complaints, there is no fever or chills no headache or dizziness no chest pain no shortness of breath no cough no nausea or vomiting no abdominal pain no diarrhea no urinary symptoms, temperature is 97.5 pulse 89 respiration 16 blood pressure 108/68 pulse ox 96% on 4 L nasal cannula. His white blood count is 28.9 hemoglobin 11.0 platelet count 147 sodium 136 potassium 3.9 chloride 111 CO2 23 BUN 30 creatinine 0.94 On 02/05/2024 patient remains in the intensive care unit alert and oriented 3. Patient is down to 2 L. Chest tube remains in place.Patient's appetite remains poor patient has been started on Megace. Will consult when necessary for possible discharge planning. Patient denies chest pain or shortness breath. Patient denies nausea vomiting or diarrhea. Patient denies any urinary burning or frequency. Current vital signs temp 97.6, heart rate 80, respiratory rate 19,, Blood pressure 98/70 with pulse ox 95% on 2 L On 02/06/2024 patient was seen and examined on the telemetry floor, he is alert and oriented x 3. Current vital signs temp 97.9, heart rate 93, respiratory rate 18. blood pressure 122/60 Patient denies chest pain or shortness of breath. Patient denies nausea vomiting or diarrhea. Patient denies any urinary burning and frequency. On 03/05/2024 patient is alert and oriented x 3. Patient complaining about difficulty sleeping melatonin added. Discharge planning to [facility]. Patient remain s with chest tube awaiting further recommendations from pulmonary services. Current vital signs temp 97.3, heart rate 78, respiratory rate 18, blood pressure 133/80 with a pulse ox of 93% on 4 L. Patient denies chest pain or shortness of breath. Patient denies nausea vomiting or diarrhea. Patient denies any urinary burning or frequency On 02/08/2024 patient is alert and oriented x 3. Cardiothoracic surgery was consulted due to left-sided pneumothorax with chest tube placement with continuous airleak at this time recommendations to continue wall suction and will monitor. Patient denies chest pain or shortness of breath. Patient denies nausea vomiting or diarrhea. Patient denies any urinary burning or frequency. Current temp 97.3, heart rate 68, respiratory rate 18, blood pressure 96/63 with a pulse ox of 92% on 4 L On 02/09/2024 patient is alert and oriented x 3. Patient was transferred to the intensive care unit last night due to large bloody bowel movement and hypotension. At this time patient's Eliquis has been on hold. Surgical services have been consulted. Patient denies chest pain or shortness of breath. Patient denies nausea vomiting or diarrhea. Patient denies any urinary burning or frequency. Patient may require norepinephrine for blood pressure support co ntinue ICU management at this time. Critical care services following On 02/10/2024 patient is alert and oriented x 3. Per nursing staff patient has had no further episodes of large-volume bloody bowel movement. Patient still having some hypotension. Patient was evaluated by surgical services Eliquis remains on hold hemoglobin remained stable continue monitoring at this time. Patient also being followed by cardiothoracic surgery chest tube remains to suction at this time. Patient denies chest pain or shortness of breath. Patient denies any urinary burning or frequency. Patient denies nausea vomiting or diarrhea. On 02/11/2024 patient was seen and examined in the ICU, he is alert and oriented x 3 in no apparent distress, he is still complaining of left-sided chest wall pain site of his chest tube, otherwise he denies any complaints there is no fever or chills no headache or dizziness no chest pain no shortness of breath no cough no nausea or vomiting no abdominal pain no diarrhea no blood in the stools no burning with urination no frequency or urgency and no hematuria, patient has very low oral intake, he was encouraged in length in regard to increasing his diet and taking some protein supplements, albumin is low to 1.7, alternatively patient may need a Dobbhoff tube with enteral feeding. Will continue to follow closely On 02/12/2024 patient is alert and oriented x 3 remains in the ICU. Patient remains on IV Lasix patient having increased lower extremity edema. Appetite remains poor. Current vital signs temp 98.7, heart rate 89, respiratory rate 19, blood pressure 88/52 with a pulse ox of 93% on Airvo 60%. Patient denies chest pain or shortness of breath. Patient denies nausea vomiting or diarrhea. Patient denies any urinary burning or frequency On 02/13/2024 patient's alert and oriented remains in the intensive care unit. Remains on IV Lasix. Patient also remains on IV Zosyn. Multiple consults following. Patient remains on Airvo 60% and patient was started on Levophed for pressure support Objective - Vital Signs Vital signs: Vital Signs Temp 97.6 F 02/13/24 08:00 Pulse 93 02/13/24 08:15 Resp 47 H 02/13/24 08:30 BP 106/69 02/13/24 08:30 Pulse Ox 90 L 02/13/24 08:49 FiO2 50 02/13/24 08:49 Intake & Output 02/12/24 02/13/24 02/13/24 18:59 06:59 18:59 Intake Total 1067.324 156 26 Output Total 1935 1405 120 Balance -867.676 -1249 -94 Weight 85.4 kg Intake: IV 233 156 26 Pressure Bag 33 36 6 Sodium Chloride 0.9% 1, 200 120 20 000 ml @ 10 mls/hr IV . Q24H [facility] Rx#:[id number] Intake, IV Titration 484.324 Amount Fluconazole in NaCl,Iso- 50 Osm 100 mg In Saline 1 50ml.bag @ 50 mls/hr IVPB DAILY [facility] Rx#:[id number] Norepinephrine 8 mg In 134.324 Sodium Chloride 0.9% 250 ml @ 0.03 MCG/KG/MIN 4. 975 mls/hr IV .Q24H [facility] Rx#:[id number] Piperacillin-Tazobactam 3 100 .375 gm In Sodium Chloride 0.9% 100 ml @ 25 mls/hr IVPB Q8HR [facility] Rx# :[id number] Potassium Chloride 20 meq 200 In Water For Injection 1 100ml.bag @ 50 mls/hr IVPB Q2H [facility] Rx#: [id number] Oral 350 Output: Chest Tube Drainage 35 Left Left Pleural/ 35 Mediastinal Urine 1900 1405 120 Other: Voiding Method Indwelling Catheter Indwelling Catheter # Bowel Movements 2 ABP, PAP, CO, CI - Last Documented Arterial Blood Pressure 101/66 - Exam In general patient is alert and oriented x 3 in no distress HEENT head normocephalic and atraumatic Neck is supple no JVD no goiter no lymphadenopathy no carotid bruit Chest examination reveals a scattered crackles bilaterally no wheezing Cardiac exam reveals irregular heart sounds S1 and S2 with tachycardia no gallops no murmurs Abdomen is soft nontender no organomegaly with normal bowel sounds Extremity exam reveals no edema no cyanosis or clubbing Neurological examination reveals no gross focal deficits - Labs CBC & Chem 7: 02/14/24 04:36 02/14/24 04:36 Labs: Abnormal Lab Results - Last 24 Hours (Table) 02/12/24 02/12/24 02/12/24 Range/Units 11:40 17:37 18:05 WBC (3.8-10.6) k/uL RBC (4.30-5.90) m/uL Hgb (13.0-17.5) gm/dL Hct (39.0-53.0) % MCV (80.0-100.0) fL RDW (11.5-15.5) % Plt Count (150-450) k/uL Chloride (98-107) mmol/L Carbon Dioxide (22-30) mmol/L BUN (9-20) mg/dL Glucose (74-99) mg/dL POC Glucose (mg/dL) 117 H 141 H 136 H (70-110) mg/dL Calcium (8.4-10.2) mg/dL Ionized Calcium Sharda (4.5-5.3) mg/dL Total Bilirubin (0.2-1.3) mg/dL Alkaline Phosphatase (38-126) U/L Total Protein (6.3-8.2) g/dL Albumin (3.5-5.0) g/dL 02/12/24 02/13/24 02/13/24 Range/Units 20:02 04:45 04:45 WBC 28.1 H (3.8-10.6) k/uL RBC 2.56 L (4.30-5.90) m/uL Hgb 8.5 L (13.0-17.5) gm/dL Hct 26.0 L (39.0-53.0) % MCV 101.4 H (80.0-100.0) fL RDW 19.1 H (11.5-15.5) % Plt Count 126 L (150-450) k/uL Chloride 118 H (98-107) mmol/L Carbon Dioxide 16 L (22-30) mmol/L BUN 33 H (9-20) mg/dL Glucose 72 L (74-99) mg/dL POC Glucose (mg/dL) 271 H (70-110) mg/dL Calcium 6.9 L (8.4-10.2) mg/dL Ionized Calcium Sharda 4.4 L (4.5-5.3) mg/dL Total Bilirubin 1.4 H (0.2-1.3) mg/dL Alkaline Phosphatase 191 H (38-126) U/L Total Protein 4.3 L (6.3-8.2) g/dL Albumin 1.7 L (3.5-5.0) g/dL Assessment and Plan Assessment: 1. Pneumonia with sepsis as evident by elevated lactic acid and leukocytosis 2. Acute kidney injury secondary to sepsis and dehydration, kidney function improved significantly since admission 3. History of atrial fibrillation maintained on Eliquis, with episodes of rapid ventricular response during this presentation 4. History of CHF 5. Acute hypoxic respiratory failure requiring high flow oxygen supplements pulmonary are following 6. Elevated liver enzymes we will hold statin at this time and recheck 7. Positive blood culture for Staphylococcus aureus, consultation for infectious disease was initiated 8. COVID-19 positive 9. Left-sided pneumothorax requiring left-sided chest tube insertion 10. GI bleed. Surgical services consulted Eliquis currently on hold 11. Hypotension secondary to above patient currently in ICU may require vasopressors for blood pressure support DVT prophylaxis Eliquis. GI prophylaxis Protonix Pulmonary services consulted, infectious disease cardiology consultation requested echocardiogram ordered Blood and sputum cultures ordered Repeat labs ordered
--- NOTE | 2024-02-14 08:58 | P.PN ---
Subjective Progress Note Date: 02/14/24 Rodriguez Jackson, is a 73-year-old male who presented to [facility] emergency room with a chief complaint of worsening shortness of breath, patient stated that he fell 2 weeks ago, he was complaining of left-sided rib pain especially when he takes a deep breath. He was also complaining of cough otherwise he denies any complaints. He was evaluated in the emergency room vital examination on presentation revealed a temperature of 98.8 pulse 118 respiration 18 blood pressure 130/78 pulse ox 97% on 10 L nonrebreather mask Laboratory data revealed a white blood count of 20.8 hemoglobin 12.2 platelet count 310 sodium 134 potassium 3.4 chloride 102 BUN 51 creatinine 1.77 AST 188 ALT 135 troponin 0.012 Testing in the emergency room revealed EKG done in the emergency room revealed atrial fibrillation with rapid ventricular response, chest x-ray revealed patchy left and right lower lobe infiltrates worse on the left. Patient was admitted to medical floor for further evaluation and treatment, pulmonary consultation and cardiology consultation were requested. On 01/23/2024 patient was seen and examined on the medical floor he is alert and oriented x 3 in no apparent distress he reports mild improvement in his shortness of breath, he is still complaining of cough and complaining of chest wall pain otherwise he denies any complaints there is no fever or chills no headache or dizziness no nausea or vomiting no abdominal pain no diarrhea no blood in the stools no burning with urination no frequency or urgency and no hematuria. His temperature is 98.8 pulse 108 respiration 26 blood pressure 138/92 pulse ox 91% on 11 L high flow cannula, white blood count is 26.7 hemoglobin 12.8 platelet count 281 BUN 31 creatinine 1.04 On 01/24/2024 patient is alert and oriented x 3. Patient still having some significant shortness of breath currently on 11 L nasal cannula. Cardiology, pu lmonary and infectious disease services are following. Patient remains on Cardizem drip. Patient remains on IV steroids and IV cefazolin. White blood cell 35.7, creatinine 1.18 bun 40. Current vital signs temp 97.8, heart 76, respiratory rate 26, blood pressure 112/73 with a pulse ox of 91% on 11 L On 01/25/2024 patient is alert and oriented x 3 patient reports some improvement with shortness of breath. Pulmonary cardiology and infectious disease services are following. Cardizem dean has been DC'd patient transition to p.o. Cardizekatey per cardiology continue IV antibiotics and steroids at this time.. Current vital signs temp 96.4, heart rate 74, respiratory rate 18, blood pressure 118/83 with a pulse ox of 97% on 10 L high flow. On 01/26/2024 patient was seen and examined on the medical floor he is alert and oriented x 3 in mild respiratory distress, he is maintained on high flow oxygen of 11 L/min, he is still complaining of cough and chest discomfort otherwise he denies any complaints, there is no fever or chills no headache or dizziness no chest pain no nausea or vomiting no abdominal pain no diarrhea no blood in the stools no burning with urination no frequency or urgency and no hematuria. Testing for COVID was positive yesterday. Pulmonary and infectious disease are following. On 01/27/2024 patient is alert and oriented x 3 patient continued to having increase oxygen demands. Per nursing staff pulmonary services were notified patient currently on high flow [address] scan of chest this morning which showed diffuse groundglass opacities and correlation for atypical pneumonia. Patient remains on IV Kefzol and prednisone. Pulmonary and infectious disease services following. Cardiology also following On 01/28/2024 patient is alert and oriented x 3. Patient at this time is resting comfortably in bed. Patient remains on Airvo 60%. Temp 97.6, heart rate 95, respiratory rate 24, blood pressure 100/67. Pulmonary cardiology and infectious disease are following patient remains on IV Kefzol and Solu-Medrol On 01/29/2024 patient was seen and examined on the medical floor he is alert and oriented x 3 in no apparent distress,he is still maintained on high flow oxygen, he is complaining of generalized weakness and complaining of constipation he has very poor oral intake, there is no fever or chills no headache or dizziness no chest pain, he has shortness of breath with any activity no palpitation he has continuous cough no nausea or vomiting no abdominal pain no diarrhea and no urinary symptoms. On 01/30/2024 patient was seen and examined in the ICU, he is alert responsive in no apparent distress maintained on high flow oxygen via Airvo, he was transferred to ICU due to worsening shortness of breath, chest x-ray today revealed interval development of a large left-sided pneumothorax estimated at 40%, he underwent chest tube placement, on the left. His vital exam reveals a temperature of 97.5 pulse 108 respiration 33 blood pressure 133/82 pulse ox is 98% on high flow cannula with FiO2 of 50% On 01/31/2024 patient remains in the intensive care unit. Chest tube in place. Current vital signs temp 97.9, heart rate 84, respiratory rate 23, blood pressure 102/71 with a pulse ox of 97% on high flow of 40%. Patient remains s hort of breath. Patient denies chest pain. Patient denies nausea vomiting or diarrhea. Patient denies any urinary burning or frequency On 02/01/2024 patient is alert and oriented x 3. Patient remains in the intensive care unit. Tube remains in place. Current vital signs temp 97.7, heart rate 79, respiratory rate 24, blood pressure 117/76 with a pulse ox of 100% on 6 L high flow. Patient reports some improvement with shortness of breath. Patient denies chest pain. Patient denies nausea vomiting or diarrhea. On 02/02/2024 patient was seen and examined in the ICU, he is alert and oriented x 3 in no apparent distress, he is complaining of discomfort at the chest tube site, and complaining of shortness of breath otherwise he denies any complaints there is no fever or chills no headache or dizziness, no chest pain, he has occasional cough no nausea or vomiting no abdominal pain no diarrhea no urinary symptoms. Temperature is 97.4 pulse 90 respiration 23 blood pressure 106/78 pulse ox 95% on 4 L nasal cannula, white blood count 45.7 hemoglobin 11.1 platelet count 199 BUN 45 creatinine 0.89 On 02/03/2024 patient remains in the ICU alert and oriented x 3. Patient still has chest tube complaining of some discomfort at site. Speech services at bedside assessing swallow still recommending nectar thick liquids. Current vital signs temp 97.6, heart rate 93, respiratory rate 21. Patient denies chest pain or shortness of breath. Patient denies nausea vomiting or diarrhea. Patient denies any urinary burning and frequency. On 02/04/2024 patient was seen and examined in the intensive care unit, he is alert and oriented in no apparent distress, he is complaining of pain in the chest wall site of the chest tube otherwise he denies any complaints, there is no fever or chills no headache or dizziness no chest pain no shortness of breath no cough no nausea or vomiting no abdominal pain no diarrhea no urinary symptoms, temperature is 97.5 pulse 89 respiration 16 blood pressure 108/68 pulse ox 96% on 4 L nasal cannula. His white blood count is 28.9 hemoglobin 11.0 platelet count 147 sodium 136 potassium 3.9 chloride 111 CO2 23 BUN 30 creatinine 0.94 On 02/05/2024 patient remains in the intensive care unit alert and oriented 3. Patient is down to 2 L. Chest tube remains in place.Patient's appetite remains poor patient has been started on Megace. Will consult when necessary for possible discharge planning. Patient denies chest pain or shortness breath. Patient denies nausea vomiting or diarrhea. Patient denies any urinary burning or frequency. Current vital signs temp 97.6, heart rate 80, respiratory rate 19,, Blood pressure 98/70 with pulse ox 95% on 2 L On 02/06/2024 patient was seen and examined on the telemetry floor, he is alert and oriented x 3. Current vital signs temp 97.9, heart rate 93, respiratory rate 18. blood pressure 122/60 Patient denies chest pain or shortness of breath. Patient denies nausea vomiting or diarrhea. Patient denies any urinary burning and frequency. On 03/05/2024 patient is alert and oriented x 3. Patient complaining about difficulty sleeping melatonin added. Discharge planning to [facility]. Patient remain s with chest tube awaiting further recommendations from pulmonary services. Current vital signs temp 97.3, heart rate 78, respiratory rate 18, blood pressure 133/80 with a pulse ox of 93% on 4 L. Patient denies chest pain or shortness of breath. Patient denies nausea vomiting or diarrhea. Patient denies any urinary burning or frequency On 02/08/2024 patient is alert and oriented x 3. Cardiothoracic surgery was consulted due to left-sided pneumothorax with chest tube placement with continuous airleak at this time recommendations to continue wall suction and will monitor. Patient denies chest pain or shortness of breath. Patient denies nausea vomiting or diarrhea. Patient denies any urinary burning or frequency. Current temp 97.3, heart rate 68, respiratory rate 18, blood pressure 96/63 with a pulse ox of 92% on 4 L On 02/09/2024 patient is alert and oriented x 3. Patient was transferred to the intensive care unit last night due to large bloody bowel movement and hypotension. At this time patient's Eliquis has been on hold. Surgical services have been consulted. Patient denies chest pain or shortness of breath. Patient denies nausea vomiting or diarrhea. Patient denies any urinary burning or frequency. Patient may require norepinephrine for blood pressure support co ntinue ICU management at this time. Critical care services following On 02/10/2024 patient is alert and oriented x 3. Per nursing staff patient has had no further episodes of large-volume bloody bowel movement. Patient still having some hypotension. Patient was evaluated by surgical services Eliquis remains on hold hemoglobin remained stable continue monitoring at this time. Patient also being followed by cardiothoracic surgery chest tube remains to suction at this time. Patient denies chest pain or shortness of breath. Patient denies any urinary burning or frequency. Patient denies nausea vomiting or diarrhea. On 02/11/2024 patient was seen and examined in the ICU, he is alert and oriented x 3 in no apparent distress, he is still complaining of left-sided chest wall pain site of his chest tube, otherwise he denies any complaints there is no fever or chills no headache or dizziness no chest pain no shortness of breath no cough no nausea or vomiting no abdominal pain no diarrhea no blood in the stools no burning with urination no frequency or urgency and no hematuria, patient has very low oral intake, he was encouraged in length in regard to increasing his diet and taking some protein supplements, albumin is low to 1.7, alternatively patient may need a Dobbhoff tube with enteral feeding. Will continue to follow closely On 02/12/2024 patient is alert and oriented x 3 remains in the ICU. Patient remains on IV Lasix patient having increased lower extremity edema. Appetite remains poor. Current vital signs temp 98.7, heart rate 89, respiratory rate 19, blood pressure 88/52 with a pulse ox of 93% on Airvo 60%. Patient denies chest pain or shortness of breath. Patient denies nausea vomiting or diarrhea. Patient denies any urinary burning or frequency On 02/13/2024 patient's alert and oriented remains in the intensive care unit. Remains on IV Lasix. Patient also remains on IV Zosyn. Multiple consults following. Patient remains on Airvo 60% and patient was started on Levophed for pressure support On 02/14/2024 patient is alert and oriented x 3. Edema has slightly improved. Patient remains on Levophed. Current vital signs temp 98.0, heart rate 94, r espiratory rate 19, blood pressure 102/73 with a pulse ox of 96% on Airvo 60%. Hemoglobin 8.9, white blood cell 28.6, creatinine 1.14 bun 33 Objective - Vital Signs Vital signs: Vital Signs Temp 98.0 F 02/14/24 04:00 Pulse 105 H 02/14/24 07:00 Resp 21 02/14/24 07:00 BP 96/65 02/14/24 07:00 Pulse Ox 96 02/14/24 08:12 FiO2 50 02/14/24 08:12 Intake & Output 02/13/24 02/14/24 02/14/24 18:59 06:59 18:59 Intake Total 506 256 126 Output Total 1455 1010 250 Balance -949 -754 -124 Weight 85.2 kg Intake: IV 156 156 26 Pressure Bag 36 36 6 Sodium Chloride 0.9% 1, 120 120 20 000 ml @ 10 mls/hr IV . Q24H [facility] Rx#:[id number] Intake, IV Titration 100 Amount Piperacillin-Tazobactam 3 100 .375 gm In Sodium Chloride 0.9% 100 ml @ 25 mls/hr IVPB Q8HR [facility] Rx# :[id number] Oral 250 100 100 Output: Chest Tube Drainage 10 20 Left Left Pleural/ 10 20 Mediastinal Urine 1445 990 250 Other: Voiding Method Indwelling Catheter Indwelling Catheter ABP, PAP, CO, CI - Last Documented Arterial Blood Pressure 86/52 - Exam In general patient is alert and oriented x 3 in no distress HEENT head normocephalic and atraumatic Neck is supple no JVD no goiter no lymphadenopathy no carotid bruit Chest examination reveals a scattered crackles bilaterally no wheezing Cardiac exam reveals irregular heart sounds S1 and S2 with tachycardia no gallops no murmurs Abdomen is soft nontender no organomegaly with normal bowel sounds Extremity exam reveals no edema no cyanosis or clubbing Neurological examination reveals no gross focal deficits - Labs CBC & Chem 7: 02/14/24 04:36 02/14/24 04:36 Labs: Abnormal Lab Results - Last 24 Hours (Table) 02/13/24 02/13/2402/12/24 Range/Units 04:45 12:09 20:50 WBC (3.8-10.6) k/uL RBC (4.30-5.90) m/uL Hgb (13.0-17.5) gm/dL Hct (39.0-53.0) % MCV (80.0-100.0) fL RDW (11.5-15.5) % Plt Count (150-450) k/uL Neutrophils # (Manual) (1.3-7.7) k/uL Metamyelocytes # (Man) (0) k/uL Nucleated RBCs (0-0) /100 WBC Macrocytosis Chloride (98-107) mmol/L Carbon Dioxide (22-30) mmol/L BUN (9-20) mg/dL POC Glucose (mg/dL) 130 H 131 H (70-110) mg/dL Calcium (8.4-10.2) mg/dL Prealbumin 12.4 L (18.0-42.0) mg/dL 02/14/24 02/14/24 02/14/24 Range/Units 00:08 04:36 04:36 WBC 28.6 H (3.8-10.6) k/uL RBC 2.65 L (4.30-5.90) m/uL Hgb 8.9 L (13.0-17.5) gm/dL Hct 28.0 L (39.0-53.0) % MCV 105.6 H (80.0-100.0) fL RDW 19.7 H (11.5-15.5) % Plt Count 139 L (150-450) k/uL Neutrophils # (Manual) 26.60 H (1.3-7.7) k/uL Metamyelocytes # (Man) 0.29 H (0) k/uL Nucleated RBCs 2 H (0-0) /100 WBC Macrocytosis Marked A Chloride 118 H (98-107) mmol/L Carbon Dioxide 16 L (22-30) mmol/L BUN 33 H (9-20) mg/dL POC Glucose (mg/dL) 116 H (70-110) mg/dL Calcium 7.1 L (8.4-10.2) mg/dL Prealbumin (18.0-42.0) mg/dL Assessment and Plan Assessment: 1. Pneumonia with sepsis as evident by elevated lactic acid and leukocytosis 2. Acute kidney injury secondary to sepsis and dehydration, kidney function improved significantly since admission 3. History of atrial fibrillation maintained on Eliquis, with episodes of rapid ventricular response during this presentation 4. History of CHF 5. Acute hypoxic respiratory failure requiring high flow oxygen supplements pulmonary are following 6. Elevated liver enzymes we will hold statin at this time and recheck 7. Positive blood culture for Staphylococcus aureus, consultation for infectious disease was initiated 8. COVID-19 positive 9. Left-sided pneumothorax requiring left-sided chest tube insertion 10. GI bleed. Surgical services consulted Eliquis currently on hold 11. Hypotension secondary to above patient currently in ICU may require vasopressors for blood pressure support DVT prophylaxis Eliquis. GI prophylaxis Protonix Pulmonary services consulted, infectious disease cardiology consultation requested echocardiogram ordered Blood and sputum cultures ordered Repeat labs ordered
[2024-02-14] MEDS: MAGNESIUM SULFATE-D5W PMX 1 GM in DEXTROSE/WATER 1 100ML.BAG IVPB ONE (09:02)
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
[2024-02-14 12:09] LABS: Glucose,Whole Blood 125 mg/dL (70-110)
--- NOTE | 2024-02-14 13:40 | XR ---
EXAMINATION TYPE: XR chest 1V portable DATE OF EXAM: 02/14/2024 4:58 AM COMPARISON: 02/13/2024 CLINICAL INDICATION: Male, 73 years old with history of Respiratory failure, left pneumothorax, TECHNIQUE: XR chest 1V portable view(s) obtained. FINDINGS: The heart size is normal. The pulmonary vasculature is indistinct. Views increased lung markings are present bilaterally. This may be increase in the left upper lung fi eld. Correlate for pneumonia. Consider atypical pulmonary edema. Left-sided chest tube is present. No pneumothorax is evident. IMPRESSION: 1. Increasing left upper lobe infiltrate. 2. Stable right lung infiltrate. 3. Correlate for pneumonia or pulmonary edema. Continued follow-up is recommended [facility], , 02/14/2024 1:38 PM
--- NOTE | 2024-02-14 14:14 | P.PN ---
Subjective Progress Note Date: 02/14/24 SURGICAL PROGRESS NOTE CHIEF COMPLAINT: Shortness of breath HISTORY OF PRESENT ILLNESS: Patient remains in the ICU. Surgical service following regards to possible GI bleed. Patient is having brown stools. Eliquis has been restarted. Hemoglobin today 8.9 PHYSICAL EXAM: VITAL SIGNS: Reviewed. GENERAL: in no acute distress. ABDOMEN: Soft. Nondistended. Nontender. NEUROLOGIC: Awake and alert ASSESSMENT: 1. Possible Acute GI bleed, now resolved 2. Leukocytosis likely due to pneumonia and bacteremia 3. atrial fibrillation PLAN: -No surgical intervention planned -Patient has been restarted on Eliquis. Continue to monitor for any signs or symptoms of bleeding. Continue to monitor hemoglobin Physician Upholstery Tech note has been reviewed by physician. Signing provider agrees with the documented findings, assessment, and plan of care. Objective - Vital Signs Vital signs: Vital Signs Temp 97.5 F L 02/14/24 08:00 Pulse 90 02/14/24 11:45 Resp 27 H 02/14/24 11:45 BP 105/77 02/14/24 11:45 Pulse Ox 90 L 02/14/24 11:45 FiO2 50 02/14/24 11:39 Intake & Output 02/13/24 02/14/24 02/14/24 18:59 06:59 18:59 Intake Total 506 256 178 Output Total 1455 1010 450 Balance -348 -834 -396 Weight 85.2 kg 85.2 kg Intake: IV 156 156 78 Pressure Bag 36 36 18 Sodium Chloride 0.9% 1, 120 120 60 000 ml @ 10 mls/hr IV . Q24H [facility] Rx#:[id number] Intake, IV Titration 100 Amount Piperacillin-Tazobactam 3 100 .375 gm In Sodium Chloride 0.9% 100 ml @ 25 mls/hr IVPB Q8HR [facility] Rx# :[id number] Oral 250 100 100 Output: Chest Tube Drainage 10 20 Left Left Pleural/ 10 20 Mediastinal Urine 1445 990 450 Other: Voiding Method Indwelling Catheter Indwelling Catheter Indwelling Catheter # Bowel Movements 1 ABP, PAP, CO, CI - Last Documented Arterial Blood Pressure 103/65 - Labs CBC & Chem 7: 02/14/24 04:36 02/14/24 04:36 Labs: Abnormal Lab Results - Last 24 Hours (Table) 02/13/24 02/14/24 02/14/24 Range/Units 20:50 00:08 04:36 WBC (3.8-10.6) k/uL RBC (4.30-5.90) m/uL Hgb (13.0-17.5) gm/dL Hct (39.0-53.0) % MCV (80.0-100.0) fL RDW (11.5-15.5) % Plt Count (150-450) k/uL Neutrophils # (Manual) (1.3-7.7) k/uL Metamyelocytes # (Man) (0) k/uL Nucleated RBCs (0-0) /100 WBC Macrocytosis Chloride 118 H (98-107) mmol/L Carbon Dioxide 16 L (22-30) mmol/L BUN 33 H (9-20) mg/dL POC Glucose (mg/dL) 131 H 116 H (70-110) mg/dL Calcium 7.1 L (8.4-10.2) mg/dL 02/14/24 02/14/24 Range/Units 04:36 12:07 WBC 28.6 H (3.8-10.6) k/uL RBC 2.65 L (4.30-5.90) m/uL Hgb 8.9 L (13.0-17.5) gm/dL Hct 28.0 L (39.0-53.0) % MCV 105.6 H (80.0-100.0) fL RDW 19.7 H (11.5-15.5) % Plt Count 139 L (150-450) k/uL Neutrophils # (Manual) 26.60 H (1.3-7.7) k/uL Metamyelocytes # (Man) 0.29 H (0) k/uL Nucleated RBCs 2 H (0-0) /100 WBC Macrocytosis Marked A Chloride (98-107) mmol/L Carbon Dioxide (22-30) mmol/L BUN (9-20) mg/dL POC Glucose (mg/dL) 125 H (70-110) mg/dL Calcium (8.4-10.2) mg/dL
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
[2024-02-14] MEDS: APIXABAN 5 MG TAB PO SCH (14:41)
[2024-02-14 17:30] LABS: Glucose,Whole Blood 153 mg/dL (70-110)
[2024-02-14 20:08] LABS: Glucose,Whole Blood 162 mg/dL (70-110)
[2024-02-15 04:47] LABS: Anisocytosis Moderate; Basophils # (A) 0.1 k/uL (0-0.2); Basophils % (A) 0 %; Eosinophils # (A) 0.4 k/uL (0-0.7); Eosinophils % (A) 2 %; HCT 25.9 % (39.0-53.0); HGB 8.2 gm/dL (13.0-17.5); Hypochromasia Moderate; Lymphocytes # (A) 1.4 k/uL (1.0-4.8); Lymphocytes % (A) 6 %; MCH 33.4 pg (25.0-35.0); MCHC 31.8 g/dL (31.0-37.0); Macrocytosis Marked; Mean Platelet Volume 15.8; Monocytes # (A) 0.7 k/uL (0-1.0); Monocytes % (A) 3 %; Neutrophils # (A) 21.8 k/uL (1.3-7.7); Neutrophils % (A) 88 %; Platelet Count 129 k/uL (150-450); Poikilocytosis Slight; RBC 2.47 m/uL (4.30-5.90); RDW 21.1 % (11.5-15.5); WBC 24.6 k/uL (3.8-10.6)
[2024-02-15 04:48] LABS: MCV 104.9 fL (80.0-100.0)
[2024-02-15 05:01] LABS: African American GFR (CKD) 63 (>60 ml/min/1.73 sqM); Anion Gap 4 mmol/L; Blood Urea Nitrogen 31 mg/dL (9-20); Carbon Dioxide 18 mmol/L (22-30); Chloride 116 mmol/L (98-107); Glucose 95 mg/dL (74-99); Magnesium 1.8 mg/dL (1.6-2.3); Non-African American GFR(CKD) 54 (>60 ml/min/1.73 sqM); Potassium 3.5 mmol/L (3.5-5.1); Sodium 138 mmol/L (137-145)
[2024-02-15] MEDS: POTASSIUM CHLORIDE 20 MEQ in WATER FOR INJECTION 1 100ML.BAG IVPB SCH (05:45)
[2024-02-15] MEDS: MAGNESIUM SULFATE-D5W PMX 1 GM in DEXTROSE/WATER 1 100ML.BAG IVPB ONE (05:45)
[2024-02-15 06:22] LABS: Glucose,Whole Blood 117 mg/dL (70-110)
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
--- NOTE | 2024-02-15 09:54 | XR ---
EXAMINATION TYPE: XR chest 1V portable DATE OF EXAM: 02/15/2024 5:29 AM COMPARISON: 02/14/2024 CLINICAL INDICATION: Male, 73 years old with history of Respiratory failure, left pneumothorax, TECHNIQUE: XR chest 1V portable view(s) obtained. FINDINGS: The heart size is prominent. The pulmonary vasculature is prominent. Diffuse increased lung markings are present bilaterally. Findings are worsening over the interval. Left-sided chest tube is pulled back. No pneumothorax is evident. Chest tube positioning should be as sessed. IMPRESSION: 1. Clinical correlation recommended for worsening congestive heart failure. Continued follow-up recom mended. 2. Left-sided chest tube is back. Assess for adequacy of positioning. No pneumothorax is evident. [facility], , 02/15/2024 9:52 AM
--- NOTE | 2024-02-15 10:42 | P.PN ---
Subjective Progress Note Date: 02/15/24 Rodriguez Jackson, is a 73-year-old male who presented to [facility] emergency room with a chief complaint of worsening shortness of breath, patient stated that he fell 2 weeks ago, he was complaining of left-sided rib pain especially when he takes a deep breath. He was also complaining of cough otherwise he denies any complaints. He was evaluated in the emergency room vital examination on presentation revealed a temperature of 98.8 pulse 118 respiration 18 blood pressure 130/78 pulse ox 97% on 10 L nonrebreather mask Laboratory data revealed a white blood count of 20.8 hemoglobin 12.2 platelet count 310 sodium 134 potassium 3.4 chloride 102 BUN 51 creatinine 1.77 AST 188 ALT 135 troponin 0.012 Testing in the emergency room revealed EKG done in the emergency room revealed atrial fibrillation with rapid ventricular response, chest x-ray revealed patchy left and right lower lobe infiltrates worse on the left. Patient was admitted to medical floor for further evaluation and treatment, pulmonary consultation and cardiology consultation were requested. On 01/23/2024 patient was seen and examined on the medical floor he is alert and oriented x 3 in no apparent distress he reports mild improvement in his shortness of breath, he is still complaining of cough and complaining of chest wall pain otherwise he denies any complaints there is no fever or chills no headache or dizziness no nausea or vomiting no abdominal pain no diarrhea no blood in the stools no burning with urination no frequency or urgency and no hematuria. His temperature is 98.8 pulse 108 respiration 26 blood pressure 138/92 pulse ox 91% on 11 L high flow cannula, white blood count is 26.7 hemoglobin 12.8 platelet count 281 BUN 31 creatinine 1.04 On 01/24/2024 patient is alert and oriented x 3. Patient still having some significant shortness of breath currently on 11 L nasal cannula. Cardiology, pu lmonary and infectious disease services are following. Patient remains on Cardizem drip. Patient remains on IV steroids and IV cefazolin. White blood cell 35.7, creatinine 1.18 bun 40. Current vital signs temp 97.8, heart 76, respiratory rate 26, blood pressure 112/73 with a pulse ox of 91% on 11 L On 01/25/2024 patient is alert and oriented x 3 patient reports some improvement with shortness of breath. Pulmonary cardiology and infectious disease services are following. Cardizem dean has been DC'd patient transition to p.o. Cardizekatey per cardiology continue IV antibiotics and steroids at this time.. Current vital signs temp 96.4, heart rate 74, respiratory rate 18, blood pressure 118/83 with a pulse ox of 97% on 10 L high flow. On 01/26/2024 patient was seen and examined on the medical floor he is alert and oriented x 3 in mild respiratory distress, he is maintained on high flow oxygen of 11 L/min, he is still complaining of cough and chest discomfort otherwise he denies any complaints, there is no fever or chills no headache or dizziness no chest pain no nausea or vomiting no abdominal pain no diarrhea no blood in the stools no burning with urination no frequency or urgency and no hematuria. Testing for COVID was positive yesterday. Pulmonary and infectious disease are following. On 01/27/2024 patient is alert and oriented x 3 patient continued to having increase oxygen demands. Per nursing staff pulmonary services were notified patient currently on high flow [address] scan of chest this morning which showed diffuse groundglass opacities and correlation for atypical pneumonia. Patient remains on IV Kefzol and prednisone. Pulmonary and infectious disease services following. Cardiology also following On 01/28/2024 patient is alert and oriented x 3. Patient at this time is resting comfortably in bed. Patient remains on Airvo 60%. Temp 97.6, heart rate 95, respiratory rate 24, blood pressure 100/67. Pulmonary cardiology and infectious disease are following patient remains on IV Kefzol and Solu-Medrol On 01/29/2024 patient was seen and examined on the medical floor he is alert and oriented x 3 in no apparent distress,he is still maintained on high flow oxygen, he is complaining of generalized weakness and complaining of constipation he has very poor oral intake, there is no fever or chills no headache or dizziness no chest pain, he has shortness of breath with any activity no palpitation he has continuous cough no nausea or vomiting no abdominal pain no diarrhea and no urinary symptoms. On 01/30/2024 patient was seen and examined in the ICU, he is alert responsive in no apparent distress maintained on high flow oxygen via Airvo, he was transferred to ICU due to worsening shortness of breath, chest x-ray today revealed interval development of a large left-sided pneumothorax estimated at 40%, he underwent chest tube placement, on the left. His vital exam reveals a temperature of 97.5 pulse 108 respiration 33 blood pressure 133/82 pulse ox is 98% on high flow cannula with FiO2 of 50% On 01/31/2024 patient remains in the intensive care unit. Chest tube in place. Current vital signs temp 97.9, heart rate 84, respiratory rate 23, blood pressure 102/71 with a pulse ox of 97% on high flow of 40%. Patient remains s hort of breath. Patient denies chest pain. Patient denies nausea vomiting or diarrhea. Patient denies any urinary burning or frequency On 02/01/2024 patient is alert and oriented x 3. Patient remains in the intensive care unit. Tube remains in place. Current vital signs temp 97.7, heart rate 79, respiratory rate 24, blood pressure 117/76 with a pulse ox of 100% on 6 L high flow. Patient reports some improvement with shortness of breath. Patient denies chest pain. Patient denies nausea vomiting or diarrhea. On 02/02/2024 patient was seen and examined in the ICU, he is alert and oriented x 3 in no apparent distress, he is complaining of discomfort at the chest tube site, and complaining of shortness of breath otherwise he denies any complaints there is no fever or chills no headache or dizziness, no chest pain, he has occasional cough no nausea or vomiting no abdominal pain no diarrhea no urinary symptoms. Temperature is 97.4 pulse 90 respiration 23 blood pressure 106/78 pulse ox 95% on 4 L nasal cannula, white blood count 45.7 hemoglobin 11.1 platelet count 199 BUN 45 creatinine 0.89 On 02/03/2024 patient remains in the ICU alert and oriented x 3. Patient still has chest tube complaining of some discomfort at site. Speech services at bedside assessing swallow still recommending nectar thick liquids. Current vital signs temp 97.6, heart rate 93, respiratory rate 21. Patient denies chest pain or shortness of breath. Patient denies nausea vomiting or diarrhea. Patient denies any urinary burning and frequency. On 02/04/2024 patient was seen and examined in the intensive care unit, he is alert and oriented in no apparent distress, he is complaining of pain in the chest wall site of the chest tube otherwise he denies any complaints, there is no fever or chills no headache or dizziness no chest pain no shortness of breath no cough no nausea or vomiting no abdominal pain no diarrhea no urinary symptoms, temperature is 97.5 pulse 89 respiration 16 blood pressure 108/68 pulse ox 96% on 4 L nasal cannula. His white blood count is 28.9 hemoglobin 11.0 platelet count 147 sodium 136 potassium 3.9 chloride 111 CO2 23 BUN 30 creatinine 0.94 On 02/05/2024 patient remains in the intensive care unit alert and oriented 3. Patient is down to 2 L. Chest tube remains in place.Patient's appetite remains poor patient has been started on Megace. Will consult when necessary for possible discharge planning. Patient denies chest pain or shortness breath. Patient denies nausea vomiting or diarrhea. Patient denies any urinary burning or frequency. Current vital signs temp 97.6, heart rate 80, respiratory rate 19,, Blood pressure 98/70 with pulse ox 95% on 2 L On 02/06/2024 patient was seen and examined on the telemetry floor, he is alert and oriented x 3. Current vital signs temp 97.9, heart rate 93, respiratory rate 18. blood pressure 122/60 Patient denies chest pain or shortness of breath. Patient denies nausea vomiting or diarrhea. Patient denies any urinary burning and frequency. On 03/05/2024 patient is alert and oriented x 3. Patient complaining about difficulty sleeping melatonin added. Discharge planning to [facility]. Patient remain s with chest tube awaiting further recommendations from pulmonary services. Current vital signs temp 97.3, heart rate 78, respiratory rate 18, blood pressure 133/80 with a pulse ox of 93% on 4 L. Patient denies chest pain or shortness of breath. Patient denies nausea vomiting or diarrhea. Patient denies any urinary burning or frequency On 02/08/2024 patient is alert and oriented x 3. Cardiothoracic surgery was consulted due to left-sided pneumothorax with chest tube placement with continuous airleak at this time recommendations to continue wall suction and will monitor. Patient denies chest pain or shortness of breath. Patient denies nausea vomiting or diarrhea. Patient denies any urinary burning or frequency. Current temp 97.3, heart rate 68, respiratory rate 18, blood pressure 96/63 with a pulse ox of 92% on 4 L On 02/09/2024 patient is alert and oriented x 3. Patient was transferred to the intensive care unit last night due to large bloody bowel movement and hypotension. At this time patient's Eliquis has been on hold. Surgical services have been consulted. Patient denies chest pain or shortness of breath. Patient denies nausea vomiting or diarrhea. Patient denies any urinary burning or frequency. Patient may require norepinephrine for blood pressure support co ntinue ICU management at this time. Critical care services following On 02/10/2024 patient is alert and oriented x 3. Per nursing staff patient has had no further episodes of large-volume bloody bowel movement. Patient still having some hypotension. Patient was evaluated by surgical services Eliquis remains on hold hemoglobin remained stable continue monitoring at this time. Patient also being followed by cardiothoracic surgery chest tube remains to suction at this time. Patient denies chest pain or shortness of breath. Patient denies any urinary burning or frequency. Patient denies nausea vomiting or diarrhea. On 02/11/2024 patient was seen and examined in the ICU, he is alert and oriented x 3 in no apparent distress, he is still complaining of left-sided chest wall pain site of his chest tube, otherwise he denies any complaints there is no fever or chills no headache or dizziness no chest pain no shortness of breath no cough no nausea or vomiting no abdominal pain no diarrhea no blood in the stools no burning with urination no frequency or urgency and no hematuria, patient has very low oral intake, he was encouraged in length in regard to increasing his diet and taking some protein supplements, albumin is low to 1.7, alternatively patient may need a Dobbhoff tube with enteral feeding. Will continue to follow closely On 02/12/2024 patient is alert and oriented x 3 remains in the ICU. Patient remains on IV Lasix patient having increased lower extremity edema. Appetite remains poor. Current vital signs temp 98.7, heart rate 89, respiratory rate 19, blood pressure 88/52 with a pulse ox of 93% on Airvo 60%. Patient denies chest pain or shortness of breath. Patient denies nausea vomiting or diarrhea. Patient denies any urinary burning or frequency On 02/13/2024 patient's alert and oriented remains in the intensive care unit. Remains on IV Lasix. Patient also remains on IV Zosyn. Multiple consults following. Patient remains on Airvo 60% and patient was started on Levophed for pressure support On 02/14/2024 patient is alert and oriented x 3. Edema has slightly improved. Patient remains on Levophed. Current vital signs temp 98.0, heart rate 94, r espiratory rate 19, blood pressure 102/73 with a pulse ox of 96% on Airvo 60%. Hemoglobin 8.9, white blood cell 28.6, creatinine 1.14 bun 33 On 02/15/2024 patient is alert and oriented x 3 patient remains in the intensive care unit Levophed getting weaned down per nursing staff chest tube has been removed. Patient remains on Airvo. Current vital signs temp 98.2, heart 81, respiratory rate 15, blood pressure 105/67 with a pulse ox of 112/64. Pulse ox 94% with an Airvo FiO2 of 50%. Patient denies chest pain or shortness of breath. Patient denies nausea vomiting or diarrhea. Patient denies any urinary burning or frequency Objective - Vital Signs Vital signs: Vital Signs Temp 97.9 F 02/15/24 04:00 Pulse 81 02/15/24 07:00 Resp 15 02/15/24 07:00 BP 105/67 02/15/24 07:00 Pulse Ox 92 L 02/15/24 09:09 FiO2 50 02/15/24 09:09 Intake & Output 02/14/24 02/15/24 02/15/24 18:59 06:59 18:59 Intake Total 714 700.249 13 Output Total 1550 740 65 Balance -836 -39.751 -52 Weight 85.2 kg 86.5 kg Intake: IV 156 156 13 Pressure Bag 36 36 3 Sodium Chloride 0.9% 1, 120 120 10 000 ml @ 10 mls/hr IV . Q24H [facility] Rx#:[id number] Intake, IV Titration 258 44.249 Amount Norepinephrine 8 mg In 258 44.249 Sodium Chloride 0.9% 250 ml @ 0.03 MCG/KG/MIN 4. 975 mls/hr IV .Q24H [facility] Rx#:[id number] Oral 300 500 0 Output: Urine 1550 740 65 Other: Voiding Method Indwelling Catheter Indwelling Catheter # Bowel Movements 1 ABP, PAP, CO, CI - Last Documented Arterial Blood Pressure 112/64 - Exam In general patient is alert and oriented x 3 in no distress HEENT head normocephalic and atraumatic Neck is supple no JVD no goiter no lymphadenopathy no carotid bruit Chest examination reveals a scattered crackles bilaterally no wheezing Cardiac exam reveals irregular heart sounds S1 and S2 with tachycardia no gallops no murmurs Abdomen is soft nontender no organomegaly with normal bowel sounds Extremity exam reveals no edema no cyanosis or clubbing Neurological examination reveals no gross focal deficits - Labs CBC & Chem 7: 02/15/24 04:30 02/15/24 04:30 Labs: Abnormal Lab Results - Last 24 Hours (Table) 02/14/24 02/14/24 02/14/24 Range/Units 12:07 17:29 20:06 WBC (3.8-10.6) k/uL RBC (4.30-5.90) m/uL Hgb (13.0-17.5) gm/dL Hct (39.0-53.0) % MCV (80.0-100.0) fL RDW (11.5-15.5) % Plt Count (150-450) k/uL Neutrophils # (1.3-7.7) k/uL Macrocytosis Chloride (98-107) mmol/L Carbon Dioxide (22-30) mmol/L BUN (9-20) mg/dL Creatinine (0.66-1.25) mg/dL POC Glucose (mg/dL) 125 H 153 H 162 H (70-110) mg/dL Calcium (8.4-10.2) mg/dL 02/15/24 02/15/24 02/15/24 Range/Units 04:30 04:30 06:20 WBC 24.6 H (3.8-10.6) k/uL RBC 2.47 L (4.30-5.90) m/uL Hgb 8.2 L (13.0-17.5) gm/dL Hct 25.9 L (39.0-53.0) % MCV 104.9 H (80.0-100.0) fL RDW 21.1 H (11.5-15.5) % Plt Count 129 L (150-450) k/uL Neutrophils # 21.8 H (1.3-7.7) k/uL Macrocytosis Marked A Chloride 116 H (98-107) mmol/L Carbon Dioxide 18 L (22-30) mmol/L BUN 31 H (9-20) mg/dL Creatinine 1.30 H (0.66-1.25) mg/dL POC Glucose (mg/dL) 117 H (70-110) mg/dL Calcium 7.0 L (8.4-10.2) mg/dL Assessment and Plan Assessment: 1. Pneumonia with sepsis as evident by elevated lactic acid and leukocytosis 2. Acute kidney injury secondary to sepsis and dehydration, kidney function i mproved significantly since admission 3. History of atrial fibrillation maintained on Eliquis, with episodes of rapid ventricular response during this presentation 4. History of CHF 5. Acute hypoxic respiratory failure requiring high flow oxygen supplements pulmonary are following 6. Elevated liver enzymes we will hold statin at this time and recheck 7. Positive blood culture for Staphylococcus aureus, consultation for infectious disease was initiated 8. COVID-19 positive 9. Left-sided pneumothorax requiring left-sided chest tube insertion 10. GI bleed. Surgical services consulted Eliquis currently on hold 11. Hypotension secondary to above patient currently in ICU may require vaso pressors for blood pressure support DVT prophylaxis Eliquis. GI prophylaxis Protonix Pulmonary services consulted, infectious disease cardiology consultation requested echocardiogram ordered Blood and sputum cultures ordered Repeat labs ordered
[2024-02-15] MEDS: HYDROCORTISONE SUCCINATE 100 MG/2 ML VIAL IVP ONE (11:09)
--- NOTE | 2024-02-15 11:27 | P.PN ---
Subjective Progress Note Date: 02/15/24 SURGICAL PROGRESS NOTE CHIEF COMPLAINT: Shortness of breath HISTORY OF PRESENT ILLNESS: Patient remains in the ICU. Surgical service following regards to possible GI bleed. Patient is having brown stools. Eliquis was restarted yesterday. Hemoglobin stable at 8.2 PHYSICAL EXAM: VITAL SIGNS: Reviewed. GENERAL: in no acute distress. ABDOMEN: Soft. Nondistended. Nontender. NEUROLOGIC: Awake and alert ASSESSMENT: 1. Possible Acute GI bleed, now resolved 2. Leukocytosis likely due to pneumonia and bacteremia 3. atrial fibrillation PLAN: -No surgical intervention planned -Continue to monitor for any signs or symptoms of bleeding. 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 Signing provider agrees with the documented findings, assessment, and plan of care. Objective - Vital Signs Vital signs: Vital Signs Temp 98.3 F 02/15/24 08:00 Pulse 100 02/15/24 11:00 Resp 25 H 02/15/24 11:00 BP 109/78 02/15/24 11:00 Pulse Ox 92 L 02/15/24 11:00 FiO2 50 02/15/24 09:09 Intake & Output 02/14/24 02/15/24 02/15/24 18:59 06:59 18:59 Intake Total 714 700.249 514.567 Output Total 1550 740 790 Balance -836 -39.751 -275.433 Weight 85.2 kg 86.5 kg Intake: IV 156 156 245 Piperacillin-Tazobactam 3 100 .375 gm In Sodium Chloride 0.9% 100 ml @ 25 mls/hr IVPB Q8HR [facility] Rx# :[id number] Potassium Chloride 20 meq 100 In Water For Injection 1 100ml.bag @ 50 mls/hr IVPB Q2H [facility] Rx#: [id number] Pressure Bag 36 36 15 Sodium Chloride 0.9% 1, 120 120 30 000 ml @ 10 mls/hr IV . Q24H [facility] Rx#:[id number] Intake, IV Titration 258 44.249 69.567 Amount Norepinephrine 8 mg In 258 44.249 69.567 Sodium Chloride 0.9% 250 ml @ 0.03 MCG/KG/MIN 4. 975 mls/hr IV .Q24H [facility] Rx#:[id number] Oral 300 500 200 Output: Urine 1550 740 790 Other: Voiding Method Indwelling Catheter Indwelling Catheter # Bowel Movements 1 ABP, PAP, CO, CI - Last Documented Arterial Blood Pressure 93/62 - Labs CBC & Chem 7: 02/15/24 04:30 02/15/24 04:30 Labs: Abnormal Lab Results - Last 24 Hours (Table) 02/14/24 02/14/24 02/14/24 Range/Units 12:07 17:29 20:06 WBC (3.8-10.6) k/uL RBC (4.30-5.90) m/uL Hgb (13.0-17.5) gm/dL Hct (39.0-53.0) % MCV (80.0-100.0) fL RDW (11.5-15.5) % Plt Count (150-450) k/uL Neutrophils # (1.3-7.7) k/uL Macrocytosis Chloride (98-107) mmol/L Carbon Dioxide (22-30) mmol/L BUN (9-20) mg/dL Creatinine (0.66-1.25) mg/dL POC Glucose (mg/dL) 125 H 153 H 162 H (70-110) mg/dL Calcium (8.4-10.2) mg/dL 02/15/24 02/15/24 02/15/24 Range/Units 04:30 04:30 06:20 WBC 24.6 H (3.8-10.6) k/uL RBC 2.47 L (4.30-5.90) m/uL Hgb 8.2 L (13.0-17.5) gm/dL Hct 25.9 L (39.0-53.0) % MCV 104.9 H (80.0-100.0) fL RDW 21.1 H (11.5-15.5) % Plt Count 129 L (150-450) k/uL Neutrophils # 21.8 H (1.3-7.7) k/uL Macrocytosis Marked A Chloride 116 H (98-107) mmol/L Carbon Dioxide 18 L (22-30) mmol/L BUN 31 H (9-20) mg/dL Creatinine 1.30 H (0.66-1.25) mg/dL POC Glucose (mg/dL) 117 H (70-110) mg/dL Calcium 7.0 L (8.4-10.2) mg/dL
[2024-02-15 11:36] LABS: Glucose,Whole Blood 173 mg/dL (70-110)
[2024-02-15] MEDS: MIDODRINE 5 MG TAB PO SCH (12:36)
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
[2024-02-15] MEDS: HYDROCORTISONE SUCCINATE 100 MG/2 ML VIAL IVP SCH (16:33)
[2024-02-15 20:02] LABS: Glucose,Whole Blood 167 mg/dL (70-110)
--- NOTE | 2024-02-15 21:36 | P.PN ---
Subjective Progress Note Date: 02/15/24 Principal diagnosis: Reason for follow-up is left-sided pneumonia and MSSA bacteremia Patient is a 73-year-old with a past medical history significant for atrial fibrillation heart failure , close head injury patient presenting to the hospital for evaluation of increasing shortness of breath left lower chest pain, patient has been diagnosed with left-sided pneumonia and did have a positive blood culture with MSSA prompted this consultation.Patient did have a chest x-ray morning of 01/30/2024 with evidence of left-sided pneumothorax in this patient who status post chest tube placement on 01/30/2024 by pulmonary On today's evaluation that is 02/15/2024,the patient denies any fever or any chills, patient is breathing slightly comfortably still requiring high flow nasal cannula oxygen denies any worsening left-sided chest pain he did have a cough but no worsening intensity no vomiting or diarrhea. Patient white count is down to 24.6 creatinine is 1.30 Objective - Vital Signs Vital signs: Vital Signs Temp 98.3 F 02/15/24 08:00 Pulse 100 02/15/24 11:00 Resp 25 H 02/15/24 11:00 BP 109/78 02/15/24 11:00 Pulse Ox 92 L 02/15/24 11:00 FiO2 50 02/15/24 09:09 Intake & Output 02/14/24 02/15/24 02/15/24 18:59 06:59 18:59 Intake Total 714 700.249 514.567 Output Total 1550 740 790 Balance -836 -39.751 -275.433 Weight 85.2 kg 86.5 kg Intake: IV 156 156 245 Piperacillin-Tazobactam 3 100 .375 gm In Sodium Chloride 0.9% 100 ml @ 25 mls/hr IVPB Q8HR [facility] Rx# :[id number] Potassium Chloride 20 meq 100 In Water For Injection 1 100ml.bag @ 50 mls/hr IVPB Q2H [facility] Rx#: [id number] Pressure Bag 36 36 15 Sodium Chloride 0.9% 1, 120 120 30 000 ml @ 10 mls/hr IV . Q24H [facility] Rx#:[id number] Intake, IV Titration 258 44.249 69.567 Amount Norepinephrine 8 mg In 258 44.249 69.567 Sodium Chloride 0.9% 250 ml @ 0.03 MCG/KG/MIN 4. 975 mls/hr IV .Q24H [facility] Rx#:[id number] Oral 300 500 200 Output: Urine 1550 740 790 Other: Voiding Method Indwelling Catheter Indwelling Catheter Indwelling Catheter # Bowel Movements 1 ABP, PAP, CO, CI - Last Documented Arterial Blood Pressure 93/62 - Exam GENERAL DESCRIPTION: An elderly male lying in bed in no distress RESPIRATORY SYSTEM: Unlabored breathing , close bedside left side HEART: S1 S2 regular rate and rhythm , ABDOMEN: Soft , no tenderness EXTREMITIES: No edema feet - Labs CBC & Chem 7: 02/15/24 04:30 02/15/24 04:30 Labs: Abnormal Lab Results - Last 24 Hours (Table) 02/14/24 02/14/24 02/14/24 Range/Units 12:07 17:29 20:06 WBC (3.8-10.6) k/uL RBC (4.30-5.90) m/uL Hgb (13.0-17.5) gm/dL Hct (39.0-53.0) % MCV (80.0-100.0) fL RDW (11.5-15.5) % Plt Count (150-450) k/uL Neutrophils # (1.3-7.7) k/uL Macrocytosis Chloride (98-107) mmol/L Carbon Dioxide (22-30) mmol/L BUN (9-20) mg/dL Creatinine (0.66-1.25) mg/dL POC Glucose (mg/dL) 125 H 153 H 162 H (70-110) mg/dL Calcium (8.4-10.2) mg/dL 02/15/24 02/15/24 02/15/24 Range/Units 04:30 04:30 06:20 WBC 24.6 H (3.8-10.6) k/uL RBC 2.47 L (4.30-5.90) m/uL Hgb 8.2 L (13.0-17.5) gm/dL Hct 25.9 L (39.0-53.0) % MCV 104.9 H (80.0-100.0) fL RDW 21.1 H (11.5-15.5) % Plt Count 129 L (150-450) k/uL Neutrophils # 21.8 H (1.3-7.7) k/uL Macrocytosis Marked A Chloride 116 H (98-107) mmol/L Carbon Dioxide 18 L (22-30) mmol/L BUN 31 H (9-20) mg/dL Creatinine 1.30 H (0.66-1.25) mg/dL POC Glucose (mg/dL) 117 H (70-110) mg/dL Calcium 7.0 L (8.4-10.2) mg/dL 02/15/24 Range/Units 11:34 WBC (3.8-10.6) k/uL RBC (4.30-5.90) m/uL Hgb (13.0-17.5) gm/dL Hct (39.0-53.0) % MCV (80.0-100.0) fL RDW (11.5-15.5) % Plt Count (150-450) k/uL Neutrophils # (1.3-7.7) k/uL Macrocytosis Chloride (98-107) mmol/L Carbon Dioxide (22-30) mmol/L BUN (9-20) mg/dL Creatinine (0.66-1.25) mg/dL POC Glucose (mg/dL) 173 H (70-110) mg/dL Calcium (8.4-10.2) mg/dL Assessment and Plan (1) Bacteremia due to methicillin susceptible Staphylococcus aureus (MSSA) Current Visit: Yes Status: Acute Code(s): R78.81 - BACTEREMIA; B95.61 - METHICILLIN SUSCEP STAPH INFCT CAUSING DIS CLASSD [id number] SNOMED Code(s): 144495724 (2) Pneumonia Current Visit: Yes Status: Acute Code(s): J18.9 - PNEUMONIA, UNSPECIFIED ORGANISM SNOMED Code(s): 841329131 (3) Sepsis Current Visit: Yes Status: Acute Code(s): A41.9 - SEPSIS, UNSPECIFIED ORGANISM SNOMED Code(s): 56965821 Plan: 1patient presented to hospital with sepsis in this patient who did have leukocytosis tachycardia meeting criteria for SIRS source is left lower lobe pneumonia 2-patient with MSSA bacteremia source likely pneumonia, blood culture repeat has been negative so far 3-patient CT of the chest did not show any empyema echocardiogram did not show any valvular abnormalities repeat blood culture negative 4patient did have complication of left-sided pneumothorax s/p is chest tube placement. Patient did have persistent leak CT surgery is closely following the patient considered to be high risk for any surgical procedure 5 the patient is afebrile the patient white count is down to 24,000, patient will be continue with Zosyn try to obtain a sputum to narrow down antibiotics Dictation was produced using [email or web address] dictation software. please excuse any gr ammatical, word or spelling errors. Time with Patient: Less than 30
[2024-02-16 05:37] LABS: African American GFR (CKD) 75 (>60 ml/min/1.73 sqM); Anion Gap 1 mmol/L; Blood Urea Nitrogen 29 mg/dL (9-20); Calcium 7.1 mg/dL (8.4-10.2); Carbon Dioxide 20 mmol/L (22-30); Chloride 115 mmol/L (98-107); Glucose 112 mg/dL (74-99); Magnesium 1.7 mg/dL (1.6-2.3); Non-African American GFR(CKD) 65 (>60 ml/min/1.73 sqM); Potassium 3.4 mmol/L (3.5-5.1); Sodium 136 mmol/L (137-145)
[2024-02-16 06:12] LABS: Anisocytosis Moderate; HCT 27.5 % (39.0-53.0); HGB 8.9 gm/dL (13.0-17.5); Hypochromasia Moderate; MCH 34.6 pg (25.0-35.0); MCHC 32.6 g/dL (31.0-37.0); MCV 106.2 fL (80.0-100.0); Mean Platelet Volume 16.3; Platelet Count 161 k/uL (150-450); Poikilocytosis Slight; RBC 2.59 m/uL (4.30-5.90); RDW 21.5 % (11.5-15.5); WBC 28.6 k/uL (3.8-10.6)
[2024-02-16 06:16] LABS: Macrocytosis Marked
[2024-02-16] MEDS ORDERED: Potassium Replacement Protocol 1 EACH MISC MISCELLANE PRN (06:17)
[2024-02-16] MEDS ORDERED: Magnesium Replacement Protocol 1 EACH MISC MISCELLANE PRN (06:17)
[2024-02-16 06:30] LABS: Glucose,Whole Blood 141 mg/dL (70-110)
[2024-02-16] MEDS: POTASSIUM CHLORIDE ER 20 MEQ TAB.ER PO SCH (06:32)
[2024-02-16] MEDS: MAGNESIUM SULFATE-D5W PMX 1 GM in DEXTROSE/WATER 1 100ML.BAG IVPB ONE (06:33)
[2024-02-16 06:47] LABS: Lymphocytes # (M) 1.14 k/uL (1.0-4.8); Neutrophils # (M) 27.46 k/uL (1.3-7.7); Neutrophils % (M) 96 %; Nucleated Red Blood Cells 0 /100 WBC (0-0); Total Cells Counted 100
[2024-02-16 07:01] LABS: Crenated RBC Present; Large Platelets Present; Tear Drop Cells Present
--- NOTE | 2024-02-16 08:03 | XR ---
EXAMINATION TYPE: XR chest 1V portable DATE OF EXAM: 02/16/2024 5:17 AM COMPARISON: 02/15/2024 CLINICAL INDICATION: Male, 73 years old with history of Respiratory failure, left pneumothorax, TECHNIQUE: XR chest 1V portable view(s) obtained. FINDINGS: The heart size is normal. The pulmonary vasculature is prominent. Diffuse increased lung markings are present. This can be superimposed on pulmonary fibrosis. IMPRESSION: 1. Diffuse increased lung markings. Correlate for volume overload superimposed on pulmonary fibrosis. Follow-up recommended. [facility], , 02/16/2024 8:01 AM
[2024-02-16 11:23] LABS: Glucose,Whole Blood 133 mg/dL (70-110)
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
--- NOTE | 2024-02-16 14:22 | P.PN ---
Subjective Progress Note Date: 02/16/24 SURGICAL PROGRESS NOTE CHIEF COMPLAINT: Shortness of breath HISTORY OF PRESENT ILLNESS: Patient remains in the ICU. Surgical service following regards to possible GI bleed. Patient is having brown stools. Patient restarted on Eliquis on 02/14/2024. Hemoglobin stable at 8.9 PHYSICAL EXAM: VITAL SIGNS: patient restarted Eliquis on 1210. Hemoglobin stable. Reviewed. GENERAL: in no acute distress. ABDOMEN: Soft. Nondistended. Nontender. NEUROLOGIC: Awake and alert ASSESSMENT: 1. Possible Acute GI bleed, now resolved 2. Leukocytosis likely due to pneumonia and bacteremia 3. atrial fibrillation PLAN: -No surgical intervention planned -Continue to monitor for any signs or symptoms of bleeding. Continue to monitor hemoglobin Physician [facility]osp[facility] Nurse note has been reviewed by physician. Signing provider agrees with the documented findings, assessment, and plan of care. Objective - Vital Signs Vital signs: Vital Signs Temp 97.4 F L 02/16/24 08:00 Pulse 75 02/16/24 13:00 Resp 21 02/16/24 13:00 BP 101/69 02/16/24 13:00 Pulse Ox 96 02/16/24 13:00 FiO2 40 02/16/24 12:48 Intake & Output 02/15/24 02/16/24 02/16/24 18:59 06:59 18:59 Intake Total 877.267 406 403 Output Total 1325 2115 705 Balance -447.733 -1709 -302 Weight 85.9 kg Intake: IV 381 206 181 Magnesium Sulfate-D5w Pmx 100 1 gm In Dextrose/Water 1 100ml.bag @ 100 mls/hr IVPB ONCE ONE Rx#: [id number] Piperacillin-Tazobactam 3 100 100 .375 gm In Sodium Chloride 0.9% 100 ml @ 25 mls/hr IVPB Q8HR [facility] Rx# :[id number] Potassium Chloride 20 meq 100 In Water For Injection 1 100ml.bag @ 50 mls/hr IVPB Q2H [facility] Rx#: [id number] Pressure Bag 36 36 21 Sodium Chloride 0.9% 1, 145 70 60 000 ml @ 10 mls/hr IV . Q24H [facility] Rx#:[id number] Intake, IV Titration 96.267 Amount Norepinephrine 8 mg In 96.267 Sodium Chloride 0.9% 250 ml @ 0.03 MCG/KG/MIN 4. 975 mls/hr IV .Q24H [facility] Rx#:[id number] Oral 400 200 222 Output: Urine 1325 2115 705 Other: Voiding Method Indwelling Catheter Indwelling Catheter Indwelling Catheter ABP, PAP, CO, CI - Last Documented Arterial Blood Pressure 88/47 - Labs CBC & Chem 7: 02/16/24 05:54 02/16/24 05:15 Labs: Abnormal Lab Results - Last 24 Hours (Table) 02/15/24 02/16/24 02/16/24 Range/Units 20:00 05:15 05:54 WBC 28.6 H (3.8-10.6) k/uL RBC 2.59 L (4.30-5.90) m/uL Hgb 8.9 L (13.0-17.5) gm/dL Hct 27.5 L (39.0-53.0) % MCV 106.2 H (80.0-100.0) fL RDW 21.5 H (11.5-15.5) % Neutrophils # (Manual) 27.46 H (1.3-7.7) k/uL Macrocytosis Marked A Sodium 136 L (137-145) mmol/L Potassium 3.4 L (3.5-5.1) mmol/L Chloride 115 H (98-107) mmol/L Carbon Dioxide 20 L (22-30) mmol/L BUN 29 H (9-20) mg/dL Glucose 112 H (74-99) mg/dL POC Glucose (mg/dL) 167 H (70-110) mg/dL Calcium 7.1 L (8.4-10.2) mg/dL 02/16/24 02/16/24 Range/Units 06:28 11:21 WBC (3.8-10.6) k/uL RBC (4.30-5.90) m/uL Hgb (13.0-17.5) gm/dL Hct (39.0-53.0) % MCV (80.0-100.0) fL RDW (11.5-15.5) % Neutrophils # (Manual) (1.3-7.7) k/uL Macrocytosis Sodium (137-145) mmol/L Potassium (3.5-5.1) mmol/L Chloride (98-107) mmol/L Carbon Dioxide (22-30) mmol/L BUN (9-20) mg/dL Glucose (74-99) mg/dL POC Glucose (mg/dL) 141 H 133 H (70-110) mg/dL Calcium (8.4-10.2) mg/dL Microbiology - Last 24 Hours (Table) 02/15/24 15:00 Gram Stain - Preliminary Sputum
--- NOTE | 2024-02-16 15:10 | P.PN ---
Subjective Progress Note Date: 02/16/24 Principal diagnosis: Reason for follow-up is left-sided pneumonia and MSSA bacteremia Patient is a 73-year-old with a past medical history significant for atrial fibrillation heart failure , close head injury patient presenting to the hospital for evaluation of increasing shortness of breath left lower chest pain, patient has been diagnosed with left-sided pneumonia and did have a positive blood culture with MSSA prompted this consultation.Patient did have a chest x-ray morning of 01/30/2024 with evidence of left-sided pneumothorax in this patient who status post chest tube placement on 01/30/2024 by pulmonary On today's evaluation that is 02/16/2024,the patient remains to be afebrile, patient is high flow nasal cannula supplemental oxygen and denies any worsening shortness of breath no chest pain and denies any worsening cough.Patient denies having any nausea or vomiting, no abdominal pain and no diarrhea has been reported. Patient white count is 28.6, creat is 1.12 Objective - Vital Signs Vital signs: Vital Signs Temp 97.4 F L 02/16/24 08:00 Pulse 81 02/16/24 12:00 Resp 26 H 02/16/24 12:00 BP 106/70 02/16/24 12:00 Pulse Ox 96 02/16/24 12:00 FiO2 40 02/16/24 12:48 Intake & Output 02/15/24 02/16/24 02/16/24 18:59 06:59 18:59 Intake Total 877.267 406 129 Output Total 1325 2115 105 Balance -447.733 -9169 24 Weight 85.9 kg Intake: IV 381 206 129 Magnesium Sulfate-D5w Pmx 100 1 gm In Dextrose/Water 1 100ml.bag @ 100 mls/hr IVPB ONCE ONE Rx#: [id number] Piperacillin-Tazobactam 3 100 100 .375 gm In Sodium Chloride 0.9% 100 ml @ 25 mls/hr IVPB Q8HR [facility] Rx# :[id number] Potassium Chloride 20 meq 100 In Water For Injection 1 100ml.bag @ 50 mls/hr IVPB Q2H [facility] Rx#: [id number] Pressure Bag 36 36 9 Sodium Chloride 0.9% 1, 145 70 20 000 ml @ 10 mls/hr IV . Q24H [facility] Rx#:[id number] Intake, IV Titration 96.267 Amount Norepinephrine 8 mg In 96.267 Sodium Chloride 0.9% 250 ml @ 0.03 MCG/KG/MIN 4. 975 mls/hr IV .Q24H [facility] Rx#:[id number] Oral 400 200 Output: Urine 1325 2115 105 Other: Voiding Method Indwelling Catheter Indwelling Catheter ABP, PAP, CO, CI - Last Documented Arterial Blood Pressure 82/77 - Exam GENERAL DESCRIPTION: An elderly male lying in bed in no distress RESPIRATORY SYSTEM: Unlabored breathing , close bedside left side HEART: S1 S2 regular rate and rhythm , ABDOMEN: Soft , no tenderness EXTREMITIES: No edema feet - Labs CBC & Chem 7: 02/16/24 05:54 02/16/24 05:15 Labs: Abnormal Lab Results - Last 24 Hours (Table) 02/15/24 02/16/24 02/16/24 Range/Units 20:00 05:15 05:54 WBC 28.6 H (3.8-10.6) k/uL RBC 2.59 L (4.30-5.90) m/uL Hgb 8.9 L (13.0-17.5) gm/dL Hct 27.5 L (39.0-53.0) % MCV 106.2 H (80.0-100.0) fL RDW 21.5 H (11.5-15.5) % Neutrophils # (Manual) 27.46 H (1.3-7.7) k/uL Macrocytosis Marked A Sodium 136 L (137-145) mmol/L Potassium 3.4 L (3.5-5.1) mmol/L Chloride 115 H (98-107) mmol/L Carbon Dioxide 20 L (22-30) mmol/L BUN 29 H (9-20) mg/dL Glucose 112 H (74-99) mg/dL POC Glucose (mg/dL) 167 H (70-110) mg/dL Calcium 7.1 L (8.4-10.2) mg/dL 02/16/24 02/16/24 Range/Units 06:28 11:21 WBC (3.8-10.6) k/uL RBC (4.30-5.90) m/uL Hgb (13.0-17.5) gm/dL Hct (39.0-53.0) % MCV (80.0-100.0) fL RDW (11.5-15.5) % Neutrophils # (Manual) (1.3-7.7) k/uL Macrocytosis Sodium (137-145) mmol/L Potassium (3.5-5.1) mmol/L Chloride (98-107) mmol/L Carbon Dioxide (22-30) mmol/L BUN (9-20) mg/dL Glucose (74-99) mg/dL POC Glucose (mg/dL) 141 H 133 H (70-110) mg/dL Calcium (8.4-10.2) mg/dL Microbiology - Last 24 Hours (Table) 02/15/24 15:00 Gram Stain - Preliminary Sputum Assessment and Plan (1) Bacteremia due to methicillin susceptible Staphylococcus aureus (MSSA) Current Visit: Yes Status: Acute Code(s): R78.81 - BACTEREMIA; B95.61 - METHICILLIN SUSCEP STAPH INFCT CAUSING DIS CLASSD [id number] SNOMED Code(s): 84502 3004 (2) Pneumonia Current Visit: Yes Status: Acute Code(s): J18.9 - PNEUMONIA, UNSPECIFIED ORGANISM SNOMED Code(s): 957930062 (3) Sepsis Current Visit: Yes Status: Acute Code(s): A41.9 - SEPSIS, UNSPECIFIED ORGANISM SNOMED Code(s): 74963352 Plan: 1patient presented to hospital with sepsis in this patient who did have leukocytosis tachycardia meeting criteria for SIRS source is left lower lobe pneumonia 2-patient with MSSA bacteremia source likely pneumonia, blood culture repeat has been negative so far 3-patient CT of the chest did not show any empyema echocardiogram did not show any valvular abnormalities repeat blood culture negative 4patient did have complication of left-sided pneumothorax s/p is chest tube placement. Patient did have persistent leak CT surgery is closely following the patient considered to be high risk for any surgical procedure 5 the patient is afebrile the patient white count is up to 28,000 patient Zosyn has been discontinued per pulmonary for now monitor closely if any worsening white count of fever and stability culture and antibiotic will be restarted Dictation was produced using [employer] dictation software. please excuse any grammatical, word or spelling errors. Time with Patient: Less than 30
[2024-02-16 15:57] LABS: Glucose,Whole Blood 134 mg/dL (70-110)
[2024-02-16] MEDS ORDERED: PIPERACILLIN-TAZOBACTAM 3.375 GM in SODIUM CHLORIDE 0.9% 100 ML IVPB SCH (16:00)
--- NOTE | 2024-02-16 16:51 | P.PN ---
Subjective Progress Note Date: 02/16/24 Rodriguez Jackson, is a 73-year-old male who presented to [facility] emergency room with a chief complaint of worsening shortness of breath, patient stated that he fell 2 weeks ago, he was complaining of left-sided rib pain especially when he takes a deep breath. He was also complaining of cough otherwise he denies any complaints. He was evaluated in the emergency room vital examination on presentation revealed a temperature of 98.8 pulse 118 respiration 18 blood pressure 130/78 pulse ox 97% on 10 L nonrebreather mask Laboratory data revealed a white blood count of 20.8 hemoglobin 12.2 platelet count 310 sodium 134 potassium 3.4 chloride 102 BUN 51 creatinine 1.77 AST 188 ALT 135 troponin 0.012 Testing in the emergency room revealed EKG done in the emergency room revealed atrial fibrillation with rapid ventricular response, chest x-ray revealed patchy left and right lower lobe infiltrates worse on the left. Patient was admitted to medical floor for further evaluation and treatment, pulmonary consultation and cardiology consultation were requested. On 01/23/2024 patient was seen and examined on the medical floor he is alert and oriented x 3 in no apparent distress he reports mild improvement in his shortness of breath, he is still complaining of cough and complaining of chest wall pain otherwise he denies any complaints there is no fever or chills no headache or dizziness no nausea or vomiting no abdominal pain no diarrhea no blood in the stools no burning with urination no frequency or urgency and no hematuria. His temperature is 98.8 pulse 108 respiration 26 blood pressure 138/92 pulse ox 91% on 11 L high flow cannula, white blood count is 26.7 hemoglobin 12.8 platelet count 281 BUN 31 creatinine 1.04 On 01/24/2024 patient is alert and oriented x 3. Patient still having some significant shortness of breath currently on 11 L nasal cannula. Cardiology, pu lmonary and infectious disease services are following. Patient remains on Cardizem drip. Patient remains on IV steroids and IV cefazolin. White blood cell 35.7, creatinine 1.18 bun 40. Current vital signs temp 97.8, heart 76, respiratory rate 26, blood pressure 112/73 with a pulse ox of 91% on 11 L On 01/25/2024 patient is alert and oriented x 3 patient reports some improvement with shortness of breath. Pulmonary cardiology and infectious disease services are following. Cardizem dean has been DC'd patient transition to p.o. Cardizekatey per cardiology continue IV antibiotics and steroids at this time.. Current vital signs temp 96.4, heart rate 74, respiratory rate 18, blood pressure 118/83 with a pulse ox of 97% on 10 L high flow. On 01/26/2024 patient was seen and examined on the medical floor he is alert and oriented x 3 in mild respiratory distress, he is maintained on high flow oxygen of 11 L/min, he is still complaining of cough and chest discomfort otherwise he denies any complaints, there is no fever or chills no headache or dizziness no chest pain no nausea or vomiting no abdominal pain no diarrhea no blood in the stools no burning with urination no frequency or urgency and no hematuria. Testing for COVID was positive yesterday. Pulmonary and infectious disease are following. On 01/27/2024 patient is alert and oriented x 3 patient continued to having increase oxygen demands. Per nursing staff pulmonary services were notified patient currently on high flow [address] scan of chest this morning which showed diffuse groundglass opacities and correlation for atypical pneumonia. Patient remains on IV Kefzol and prednisone. Pulmonary and infectious disease services following. Cardiology also following On 01/28/2024 patient is alert and oriented x 3. Patient at this time is resting comfortably in bed. Patient remains on Airvo 60%. Temp 97.6, heart rate 95, respiratory rate 24, blood pressure 100/67. Pulmonary cardiology and infectious disease are following patient remains on IV Kefzol and Solu-Medrol On 01/29/2024 patient was seen and examined on the medical floor he is alert and oriented x 3 in no apparent distress,he is still maintained on high flow oxygen, he is complaining of generalized weakness and complaining of constipation he has very poor oral intake, there is no fever or chills no headache or dizziness no chest pain, he has shortness of breath with any activity no palpitation he has continuous cough no nausea or vomiting no abdominal pain no diarrhea and no urinary symptoms. On 01/30/2024 patient was seen and examined in the ICU, he is alert responsive in no apparent distress maintained on high flow oxygen via Airvo, he was transferred to ICU due to worsening shortness of breath, chest x-ray today revealed interval development of a large left-sided pneumothorax estimated at 40%, he underwent chest tube placement, on the left. His vital exam reveals a temperature of 97.5 pulse 108 respiration 33 blood pressure 133/82 pulse ox is 98% on high flow cannula with FiO2 of 50% On 01/31/2024 patient remains in the intensive care unit. Chest tube in place. Current vital signs temp 97.9, heart rate 84, respiratory rate 23, blood pressure 102/71 with a pulse ox of 97% on high flow of 40%. Patient remains s hort of breath. Patient denies chest pain. Patient denies nausea vomiting or diarrhea. Patient denies any urinary burning or frequency On 02/01/2024 patient is alert and oriented x 3. Patient remains in the intensive care unit. Tube remains in place. Current vital signs temp 97.7, heart rate 79, respiratory rate 24, blood pressure 117/76 with a pulse ox of 100% on 6 L high flow. Patient reports some improvement with shortness of breath. Patient denies chest pain. Patient denies nausea vomiting or diarrhea. On 02/02/2024 patient was seen and examined in the ICU, he is alert and oriented x 3 in no apparent distress, he is complaining of discomfort at the chest tube site, and complaining of shortness of breath otherwise he denies any complaints there is no fever or chills no headache or dizziness, no chest pain, he has occasional cough no nausea or vomiting no abdominal pain no diarrhea no urinary symptoms. Temperature is 97.4 pulse 90 respiration 23 blood pressure 106/78 pulse ox 95% on 4 L nasal cannula, white blood count 45.7 hemoglobin 11.1 platelet count 199 BUN 45 creatinine 0.89 On 02/03/2024 patient remains in the ICU alert and oriented x 3. Patient still has chest tube complaining of some discomfort at site. Speech services at bedside assessing swallow still recommending nectar thick liquids. Current vital signs temp 97.6, heart rate 93, respiratory rate 21. Patient denies chest pain or shortness of breath. Patient denies nausea vomiting or diarrhea. Patient denies any urinary burning and frequency. On 02/04/2024 patient was seen and examined in the intensive care unit, he is alert and oriented in no apparent distress, he is complaining of pain in the chest wall site of the chest tube otherwise he denies any complaints, there is no fever or chills no headache or dizziness no chest pain no shortness of breath no cough no nausea or vomiting no abdominal pain no diarrhea no urinary symptoms, temperature is 97.5 pulse 89 respiration 16 blood pressure 108/68 pulse ox 96% on 4 L nasal cannula. His white blood count is 28.9 hemoglobin 11.0 platelet count 147 sodium 136 potassium 3.9 chloride 111 CO2 23 BUN 30 creatinine 0.94 On 02/05/2024 patient remains in the intensive care unit alert and oriented 3. Patient is down to 2 L. Chest tube remains in place.Patient's appetite remains poor patient has been started on Megace. Will consult when necessary for possible discharge planning. Patient denies chest pain or shortness breath. Patient denies nausea vomiting or diarrhea. Patient denies any urinary burning or frequency. Current vital signs temp 97.6, heart rate 80, respiratory rate 19,, Blood pressure 98/70 with pulse ox 95% on 2 L On 02/06/2024 patient was seen and examined on the telemetry floor, he is alert and oriented x 3. Current vital signs temp 97.9, heart rate 93, respiratory rate 18. blood pressure 122/60 Patient denies chest pain or shortness of breath. Patient denies nausea vomiting or diarrhea. Patient denies any urinary burning and frequency. On 03/05/2024 patient is alert and oriented x 3. Patient complaining about difficulty sleeping melatonin added. Discharge planning to [facility]. Patient remain s with chest tube awaiting further recommendations from pulmonary services. Current vital signs temp 97.3, heart rate 78, respiratory rate 18, blood pressure 133/80 with a pulse ox of 93% on 4 L. Patient denies chest pain or shortness of breath. Patient denies nausea vomiting or diarrhea. Patient denies any urinary burning or frequency On 02/08/2024 patient is alert and oriented x 3. Cardiothoracic surgery was consulted due to left-sided pneumothorax with chest tube placement with continuous airleak at this time recommendations to continue wall suction and will monitor. Patient denies chest pain or shortness of breath. Patient denies nausea vomiting or diarrhea. Patient denies any urinary burning or frequency. Current temp 97.3, heart rate 68, respiratory rate 18, blood pressure 96/63 with a pulse ox of 92% on 4 L On 02/09/2024 patient is alert and oriented x 3. Patient was transferred to the intensive care unit last night due to large bloody bowel movement and hypotension. At this time patient's Eliquis has been on hold. Surgical services have been consulted. Patient denies chest pain or shortness of breath. Patient denies nausea vomiting or diarrhea. Patient denies any urinary burning or frequency. Patient may require norepinephrine for blood pressure support co ntinue ICU management at this time. Critical care services following On 02/10/2024 patient is alert and oriented x 3. Per nursing staff patient has had no further episodes of large-volume bloody bowel movement. Patient still having some hypotension. Patient was evaluated by surgical services Eliquis remains on hold hemoglobin remained stable continue monitoring at this time. Patient also being followed by cardiothoracic surgery chest tube remains to suction at this time. Patient denies chest pain or shortness of breath. Patient denies any urinary burning or frequency. Patient denies nausea vomiting or diarrhea. On 02/11/2024 patient was seen and examined in the ICU, he is alert and oriented x 3 in no apparent distress, he is still complaining of left-sided chest wall pain site of his chest tube, otherwise he denies any complaints there is no fever or chills no headache or dizziness no chest pain no shortness of breath no cough no nausea or vomiting no abdominal pain no diarrhea no blood in the stools no burning with urination no frequency or urgency and no hematuria, patient has very low oral intake, he was encouraged in length in regard to increasing his diet and taking some protein supplements, albumin is low to 1.7, alternatively patient may need a Dobbhoff tube with enteral feeding. Will continue to follow closely On 02/12/2024 patient is alert and oriented x 3 remains in the ICU. Patient remains on IV Lasix patient having increased lower extremity edema. Appetite remains poor. Current vital signs temp 98.7, heart rate 89, respiratory rate 19, blood pressure 88/52 with a pulse ox of 93% on Airvo 60%. Patient denies chest pain or shortness of breath. Patient denies nausea vomiting or diarrhea. Patient denies any urinary burning or frequency On 02/13/2024 patient's alert and oriented remains in the intensive care unit. Remains on IV Lasix. Patient also remains on IV Zosyn. Multiple consults following. Patient remains on Airvo 60% and patient was started on Levophed for pressure support On 02/14/2024 patient is alert and oriented x 3. Edema has slightly improved. Patient remains on Levophed. Current vital signs temp 98.0, heart rate 94, r espiratory rate 19, blood pressure 102/73 with a pulse ox of 96% on Airvo 60%. Hemoglobin 8.9, white blood cell 28.6, creatinine 1.14 bun 33 On 02/15/2024 patient is alert and oriented x 3 patient remains in the intensive care unit Levophed getting weaned down per nursing staff chest tube has been removed. Patient remains on Airvo. Current vital signs temp 98.2, heart 81, respiratory rate 15, blood pressure 105/67 with a pulse ox of 112/64. Pulse ox 94% with an Airvo FiO2 of 50%. Patient denies chest pain or shortness of breath. Patient denies nausea vomiting or diarrhea. Patient denies any urinary burning or frequency. On 02/16/2024 patient was seen and examined in the ICU he is alert and oriented x 3 in no apparent distress there is no fever or chills no headache or dizziness no chest pain no shortness of breath, at rest patient is maintained on Airvo, high flow oxygen, no nausea or vomiting no abdominal pain no diarrhea no urinary symptoms. Objective - Vital Signs Vital signs: Vital Signs Temp 97.4 F L 02/16/24 08:00 Pulse 94 02/16/24 16:00 Resp 28 H 02/16/24 16:00 BP 125/84 02/16/24 16:00 Pulse Ox 96 02/16/24 16:02 FiO2 40 02/16/24 12:48 Intake & Output 02/15/24 02/16/24 02/16/24 18:59 06:59 18:59 Intake Total 877.267 406 429 Output Total 0457 2487 907 Balance -447.733 -1709 -476 Weight 85.9 kg 85.9 kg Intake: IV 381 206 207 Magnesium Sulfate-D5w Pmx 100 1 gm In Dextrose/Water 1 100ml.bag @ 100 mls/hr IVPB ONCE ONE Rx#: [id number] Piperacillin-Tazobactam 3 100 100 .375 gm In Sodium Chloride 0.9% 100 ml @ 25 mls/hr IVPB Q8HR [facility] Rx# :[id number] Potassium Chloride 20 meq 100 In Water For Injection 1 100ml.bag @ 50 mls/hr IVPB Q2H [facility] Rx#: [id number] Pressure Bag 36 36 27 Sodium Chloride 0.9% 1, 145 70 80 000 ml @ 10 mls/hr IV . Q24H [facility] Rx#:[id number] Intake, IV Titration 96.267 Amount Norepinephrine 8 mg In 96.267 Sodium Chloride 0.9% 250 ml @ 0.03 MCG/KG/MIN 4. 975 mls/hr IV .Q24H [facility] Rx#:[id number] Oral 400 200 222 Output: Urine 1325 2115 905 Other: Voiding Method Indwelling Catheter Indwelling Catheter Indwelling Catheter ABP, PAP, CO, CI - Last Documented Arterial Blood Pressure 106/63 - Exam In general patient is alert and oriented x 3 in no distress HEENT head normocephalic and atraumatic Neck is supple no JVD no goiter no lymphadenopathy no carotid bruit Chest examination reveals a scattered crackles bilaterally no wheezing Cardiac exam reveals irregular heart sounds S1 and S2 with tachycardia no gallops no murmurs Abdomen is soft nontender no organomegaly with normal bowel sounds Extremity exam reveals no edema no cyanosis or clubbing Neurological examination reveals no gross focal deficits - Labs CBC & Chem 7: 02/16/24 05:54 02/16/24 05:15 Labs: Abnormal Lab Results - Last 24 Hours (Table) 02/15/24 02/16/24 02/16/24 Range/Units 20:00 05:15 05:54 WBC 28.6 H (3.8-10.6) k/uL RBC 2.59 L (4.30-5.90) m/uL Hgb 8.9 L (13.0-17.5) gm/dL Hct 27.5 L (39.0-53.0) % MCV 106.2 H (80.0-100.0) fL RDW 21.5 H (11.5-15.5) % Neutrophils # (Manual) 27.46 H (1.3-7.7) k/uL Macrocytosis Marked A Sodium 136 L (137-145) mmol/L Potassium 3.4 L (3.5-5.1) mmol/L Chloride 115 H (98-107) mmol/L Carbon Dioxide 20 L (22-30) mmol/L BUN 29 H (9-20) mg/dL Glucose 112 H (74-99) mg/dL POC Glucose (mg/dL) 167 H (70-110) mg/dL Calcium 7.1 L (8.4-10.2) mg/dL 02/16/24 02/16/24 02/16/24 Range/Units 06:28 11:21 15:55 WBC (3.8-10.6) k/uL RBC (4.30-5.90) m/uL Hgb (13.0-17.5) gm/dL Hct (39.0-53.0) % MCV (80.0-100.0) fL RDW (11.5-15.5) % Neutrophils # (Manual) (1.3-7.7) k/uL Macrocytosis Sodium (137-145) mmol/L Potassium (3.5-5.1) mmol/L Chloride (98-107) mmol/L Carbon Dioxide (22-30) mmol/L BUN (9-20) mg/dL Glucose (74-99) mg/dL POC Glucose (mg/dL) 141 H 133 H 134 H (70-110) mg/dL Calcium (8.4-10.2) mg/dL Microbiology - Last 24 Hours (Table) 02/15/24 15:00 Gram Stain - Preliminary Sputum Sputum Culture - Preliminary Escherichia coli Assessment and Plan Assessment: 1. Pneumonia with sepsis as evident by elevated lactic acid and leukocytosis 2. Acute kidney injury secondary to sepsis and dehydration, kidney function improved significantly since admission 3. History of atrial fibrillation maintained on Eliquis, with episodes of rapid ventricular response during this presentation 4. History of CHF 5. Acute hypoxic respiratory failure requiring high flow oxygen supplements pulmonary are following 6. Elevated liver enzymes we will hold statin at this time and recheck 7. Positive blood culture for Staphylococcus aureus, consultation for infectious disease was initiated 8. COVID-19 positive 9. Left-sided pneumothorax requiring left-sided chest tube insertion 10. GI bleed. Surgical services consulted Eliquis currently on hold 11. Hypotension secondary to above patient currently in ICU may require vasopressors for blood pressure support DVT prophylaxis Eliquis. GI prophylaxis Protonix Pulmonary services consulted, infectious disease cardiology consultation requested echocardiogram ordered Blood and sputum cultures ordered Repeat labs ordered
[2024-02-16 21:51] LABS: Glucose,Whole Blood 143 mg/dL (70-110)
[2024-02-17 00:40] LABS: Glucose,Whole Blood 137 mg/dL (70-110)
[2024-02-17 04:13] LABS: Anisocytosis Moderate; HCT 28.4 % (39.0-53.0); HGB 9.1 gm/dL (13.0-17.5); Hypochromasia Marked; MCH 34.1 pg (25.0-35.0); MCHC 32.2 g/dL (31.0-37.0); Macrocytosis Marked; Platelet Count 169 k/uL (150-450); Poikilocytosis Slight; RBC 2.68 m/uL (4.30-5.90); RDW 21.5 % (11.5-15.5); WBC 28.8 k/uL (3.8-10.6)
[2024-02-17 04:32] LABS: African American GFR (CKD) 67 (>60 ml/min/1.73 sqM); Anion Gap 5 mmol/L; Blood Urea Nitrogen 30 mg/dL (9-20); Calcium 7.4 mg/dL (8.4-10.2); Carbon Dioxide 21 mmol/L (22-30); Chloride 111 mmol/L (98-107); Glucose 116 mg/dL (74-99); Non-African American GFR(CKD) 58 (>60 ml/min/1.73 sqM); Sodium 137 mmol/L (137-145)
[2024-02-17] MEDS: POTASSIUM CHLORIDE 20 MEQ in WATER FOR INJECTION 1 100ML.BAG IVPB SCH (05:40)
[2024-02-17] MEDS: MAGNESIUM SULFATE-D5W PMX 1 GM in DEXTROSE/WATER 1 100ML.BAG IVPB ONE (05:40)
[2024-02-17 05:58] LABS: Anisocytosis (M) Present; Band Neutrophils % 6 %; Hypochromasia (M) Present; Lymphocytes # (M) 0.86 k/uL (1.0-4.8); Metamyelocytes # (M) 0.29 k/uL (0); Metamyelocytes % 1 %; Neutrophils % (M) 90 %; Nucleated Red Blood Cells 0 /100 WBC (0-0); Polychromasia Present; Stomatocytes Present; Total Cells Counted 100
[2024-02-17 06:05] LABS: Glucose,Whole Blood 153 mg/dL (70-110)
--- NOTE | 2024-02-17 06:48 | XR ---
EXAMINATION TYPE: XR chest 1V portable DATE OF EXAM: 02/17/2024 5:16 AM COMPARISON: 02/16/2024 CLINICAL INDICATION: Male, 73 years old with history of Pneumonia, TECHNIQUE: XR chest 1V portable view(s) obtained. FINDINGS: The heart size is normal. The pulmonary vasculature is normal. Diffuse increased lung markings are present bilaterally. Pattern is stable. IMPRESSION: 1. Stable appearance diffuse pulmonary fibrosis. [facility], , 02/17/2024 6:45 AM
--- NOTE | 2024-02-17 09:16 | P.PN ---
Subjective Progress Note Date: 02/17/24 Rodriguez Jackson, is a 73-year-old male who presented to [facility] emergency room with a chief complaint of worsening shortness of breath, patient stated that he fell 2 weeks ago, he was complaining of left-sided rib pain especially when he takes a deep breath. He was also complaining of cough otherwise he denies any complaints. He was evaluated in the emergency room vital examination on presentation revealed a temperature of 98.8 pulse 118 respiration 18 blood pressure 130/78 pulse ox 97% on 10 L nonrebreather mask Laboratory data revealed a white blood count of 20.8 hemoglobin 12.2 platelet count 310 sodium 134 potassium 3.4 chloride 102 BUN 51 creatinine 1.77 AST 188 ALT 135 troponin 0.012 Testing in the emergency room revealed EKG done in the emergency room revealed atrial fibrillation with rapid ventricular response, chest x-ray revealed patchy left and right lower lobe infiltrates worse on the left. Patient was admitted to medical floor for further evaluation and treatment, pulmonary consultation and cardiology consultation were requested. On 01/23/2024 patient was seen and examined on the medical floor he is alert and oriented x 3 in no apparent distress he reports mild improvement in his shortness of breath, he is still complaining of cough and complaining of chest wall pain otherwise he denies any complaints there is no fever or chills no headache or dizziness no nausea or vomiting no abdominal pain no diarrhea no blood in the stools no burning with urination no frequency or urgency and no hematuria. His temperature is 98.8 pulse 108 respiration 26 blood pressure 138/92 pulse ox 91% on 11 L high flow cannula, white blood count is 26.7 hemoglobin 12.8 platelet count 281 BUN 31 creatinine 1.04 On 01/24/2024 patient is alert and oriented x 3. Patient still having some significant shortness of breath currently on 11 L nasal cannula. Cardiology, pu lmonary and infectious disease services are following. Patient remains on Cardizem drip. Patient remains on IV steroids and IV cefazolin. White blood cell 35.7, creatinine 1.18 bun 40. Current vital signs temp 97.8, heart 76, respiratory rate 26, blood pressure 112/73 with a pulse ox of 91% on 11 L On 01/25/2024 patient is alert and oriented x 3 patient reports some improvement with shortness of breath. Pulmonary cardiology and infectious disease services are following. Cardizem dean has been DC'd patient transition to p.o. Cardizekatey per cardiology continue IV antibiotics and steroids at this time.. Current vital signs temp 96.4, heart rate 74, respiratory rate 18, blood pressure 118/83 with a pulse ox of 97% on 10 L high flow. On 01/26/2024 patient was seen and examined on the medical floor he is alert and oriented x 3 in mild respiratory distress, he is maintained on high flow oxygen of 11 L/min, he is still complaining of cough and chest discomfort otherwise he denies any complaints, there is no fever or chills no headache or dizziness no chest pain no nausea or vomiting no abdominal pain no diarrhea no blood in the stools no burning with urination no frequency or urgency and no hematuria. Testing for COVID was positive yesterday. Pulmonary and infectious disease are following. On 01/27/2024 patient is alert and oriented x 3 patient continued to having increase oxygen demands. Per nursing staff pulmonary services were notified patient currently on high flow [address] scan of chest this morning which showed diffuse groundglass opacities and correlation for atypical pneumonia. Patient remains on IV Kefzol and prednisone. Pulmonary and infectious disease services following. Cardiology also following On 01/28/2024 patient is alert and oriented x 3. Patient at this time is resting comfortably in bed. Patient remains on Airvo 60%. Temp 97.6, heart rate 95, respiratory rate 24, blood pressure 100/67. Pulmonary cardiology and infectious disease are following patient remains on IV Kefzol and Solu-Medrol On 01/29/2024 patient was seen and examined on the medical floor he is alert and oriented x 3 in no apparent distress,he is still maintained on high flow oxygen, he is complaining of generalized weakness and complaining of constipation he has very poor oral intake, there is no fever or chills no headache or dizziness no chest pain, he has shortness of breath with any activity no palpitation he has continuous cough no nausea or vomiting no abdominal pain no diarrhea and no urinary symptoms. On 01/30/2024 patient was seen and examined in the ICU, he is alert responsive in no apparent distress maintained on high flow oxygen via Airvo, he was transferred to ICU due to worsening shortness of breath, chest x-ray today revealed interval development of a large left-sided pneumothorax estimated at 40%, he underwent chest tube placement, on the left. His vital exam reveals a temperature of 97.5 pulse 108 respiration 33 blood pressure 133/82 pulse ox is 98% on high flow cannula with FiO2 of 50% On 01/31/2024 patient remains in the intensive care unit. Chest tube in place. Current vital signs temp 97.9, heart rate 84, respiratory rate 23, blood pressure 102/71 with a pulse ox of 97% on high flow of 40%. Patient remains s hort of breath. Patient denies chest pain. Patient denies nausea vomiting or diarrhea. Patient denies any urinary burning or frequency On 02/01/2024 patient is alert and oriented x 3. Patient remains in the intensive care unit. Tube remains in place. Current vital signs temp 97.7, heart rate 79, respiratory rate 24, blood pressure 117/76 with a pulse ox of 100% on 6 L high flow. Patient reports some improvement with shortness of breath. Patient denies chest pain. Patient denies nausea vomiting or diarrhea. On 02/02/2024 patient was seen and examined in the ICU, he is alert and oriented x 3 in no apparent distress, he is complaining of discomfort at the chest tube site, and complaining of shortness of breath otherwise he denies any complaints there is no fever or chills no headache or dizziness, no chest pain, he has occasional cough no nausea or vomiting no abdominal pain no diarrhea no urinary symptoms. Temperature is 97.4 pulse 90 respiration 23 blood pressure 106/78 pulse ox 95% on 4 L nasal cannula, white blood count 45.7 hemoglobin 11.1 platelet count 199 BUN 45 creatinine 0.89 On 02/03/2024 patient remains in the ICU alert and oriented x 3. Patient still has chest tube complaining of some discomfort at site. Speech services at bedside assessing swallow still recommending nectar thick liquids. Current vital signs temp 97.6, heart rate 93, respiratory rate 21. Patient denies chest pain or shortness of breath. Patient denies nausea vomiting or diarrhea. Patient denies any urinary burning and frequency. On 02/04/2024 patient was seen and examined in the intensive care unit, he is alert and oriented in no apparent distress, he is complaining of pain in the chest wall site of the chest tube otherwise he denies any complaints, there is no fever or chills no headache or dizziness no chest pain no shortness of breath no cough no nausea or vomiting no abdominal pain no diarrhea no urinary symptoms, temperature is 97.5 pulse 89 respiration 16 blood pressure 108/68 pulse ox 96% on 4 L nasal cannula. His white blood count is 28.9 hemoglobin 11.0 platelet count 147 sodium 136 potassium 3.9 chloride 111 CO2 23 BUN 30 creatinine 0.94 On 02/05/2024 patient remains in the intensive care unit alert and oriented 3. Patient is down to 2 L. Chest tube remains in place.Patient's appetite remains poor patient has been started on Megace. Will consult when necessary for possible discharge planning. Patient denies chest pain or shortness breath. Patient denies nausea vomiting or diarrhea. Patient denies any urinary burning or frequency. Current vital signs temp 97.6, heart rate 80, respiratory rate 19,, Blood pressure 98/70 with pulse ox 95% on 2 L On 02/06/2024 patient was seen and examined on the telemetry floor, he is alert and oriented x 3. Current vital signs temp 97.9, heart rate 93, respiratory rate 18. blood pressure 122/60 Patient denies chest pain or shortness of breath. Patient denies nausea vomiting or diarrhea. Patient denies any urinary burning and frequency. On 03/05/2024 patient is alert and oriented x 3. Patient complaining about difficulty sleeping melatonin added. Discharge planning to [facility]. Patient remain s with chest tube awaiting further recommendations from pulmonary services. Current vital signs temp 97.3, heart rate 78, respiratory rate 18, blood pressure 133/80 with a pulse ox of 93% on 4 L. Patient denies chest pain or shortness of breath. Patient denies nausea vomiting or diarrhea. Patient denies any urinary burning or frequency On 02/08/2024 patient is alert and oriented x 3. Cardiothoracic surgery was consulted due to left-sided pneumothorax with chest tube placement with continuous airleak at this time recommendations to continue wall suction and will monitor. Patient denies chest pain or shortness of breath. Patient denies nausea vomiting or diarrhea. Patient denies any urinary burning or frequency. Current temp 97.3, heart rate 68, respiratory rate 18, blood pressure 96/63 with a pulse ox of 92% on 4 L On 02/09/2024 patient is alert and oriented x 3. Patient was transferred to the intensive care unit last night due to large bloody bowel movement and hypotension. At this time patient's Eliquis has been on hold. Surgical services have been consulted. Patient denies chest pain or shortness of breath. Patient denies nausea vomiting or diarrhea. Patient denies any urinary burning or frequency. Patient may require norepinephrine for blood pressure support co ntinue ICU management at this time. Critical care services following On 02/10/2024 patient is alert and oriented x 3. Per nursing staff patient has had no further episodes of large-volume bloody bowel movement. Patient still having some hypotension. Patient was evaluated by surgical services Eliquis remains on hold hemoglobin remained stable continue monitoring at this time. Patient also being followed by cardiothoracic surgery chest tube remains to suction at this time. Patient denies chest pain or shortness of breath. Patient denies any urinary burning or frequency. Patient denies nausea vomiting or diarrhea. On 02/11/2024 patient was seen and examined in the ICU, he is alert and oriented x 3 in no apparent distress, he is still complaining of left-sided chest wall pain site of his chest tube, otherwise he denies any complaints there is no fever or chills no headache or dizziness no chest pain no shortness of breath no cough no nausea or vomiting no abdominal pain no diarrhea no blood in the stools no burning with urination no frequency or urgency and no hematuria, patient has very low oral intake, he was encouraged in length in regard to increasing his diet and taking some protein supplements, albumin is low to 1.7, alternatively patient may need a Dobbhoff tube with enteral feeding. Will continue to follow closely On 02/12/2024 patient is alert and oriented x 3 remains in the ICU. Patient remains on IV Lasix patient having increased lower extremity edema. Appetite remains poor. Current vital signs temp 98.7, heart rate 89, respiratory rate 19, blood pressure 88/52 with a pulse ox of 93% on Airvo 60%. Patient denies chest pain or shortness of breath. Patient denies nausea vomiting or diarrhea. Patient denies any urinary burning or frequency On 02/13/2024 patient's alert and oriented remains in the intensive care unit. Remains on IV Lasix. Patient also remains on IV Zosyn. Multiple consults following. Patient remains on Airvo 60% and patient was started on Levophed for pressure support On 02/14/2024 patient is alert and oriented x 3. Edema has slightly improved. Patient remains on Levophed. Current vital signs temp 98.0, heart rate 94, r espiratory rate 19, blood pressure 102/73 with a pulse ox of 96% on Airvo 60%. Hemoglobin 8.9, white blood cell 28.6, creatinine 1.14 bun 33 On 02/15/2024 patient is alert and oriented x 3 patient remains in the intensive care unit Levophed getting weaned down per nursing staff chest tube has been removed. Patient remains on Airvo. Current vital signs temp 98.2, heart 81, respiratory rate 15, blood pressure 105/67 with a pulse ox of 112/64. Pulse ox 94% with an Airvo FiO2 of 50%. Patient denies chest pain or shortness of breath. Patient denies nausea vomiting or diarrhea. Patient denies any urinary burning or frequency. On 02/16/2024 patient was seen and examined in the ICU he is alert and oriented x 3 in no apparent distress there is no fever or chills no headache or dizziness no chest pain no shortness of breath, at rest patient is maintained on Airvo, high flow oxygen, no nausea or vomiting no abdominal pain no diarrhea no urinary symptoms. On 02/17/2024 patient remains in the ICU alert and oriented x 3. Patient is down to high flow and Levophed has been turned off. Per critical care will continue to monitor patient in the ICU for an additional 24 hours. Current temp 97.4, heart rate 87, respiratory rate 17, blood pressure 114/62 with a pulse ox of 95% on high flow 6 L. Patient denies chest pain or shortness of breath. Patient denies nausea vomiting or diarrhea. Patient denies any urinary burning or frequency Objective - Vital Signs Vital signs: Vital Signs Temp 97.4 F L 02/17/24 08:00 Pulse 104 H 02/17/24 08:00 Resp 24 02/17/24 08:00 BP 113/78 02/17/24 07:30 Pulse Ox 95 02/17/24 08:00 FiO2 40 02/16/24 12:48 Intake & Output 02/16/24 02/17/24 02/17/24 18:59 06:59 18:59 Intake Total 1104 563 246 Output Total 1230 1535 90 Balance -126 -972 156 Weight 85.9 kg 80.3 kg Intake: IV 246 343 26 Magnesium Sulfate-D5w Pmx 100 1 gm In Dextrose/Water 1 100ml.bag @ 100 mls/hr IVPB ONCE ONE Rx#: [id number] Magnesium Sulfate-D5w Pmx 100 1 gm In Dextrose/Water 1 100ml.bag @ 100 mls/hr IVPB ONCE ONE Rx#: [id number] Potassium Chloride 20 meq 100 In Water For Injection 1 100ml.bag @ 50 mls/hr IVPB Q2H [facility] Rx#: [id number] Pressure Bag 36 33 6 Sodium Chloride 0.9% 1, 110 110 20 000 ml @ 10 mls/hr IV . Q24H [facility] Rx#:[id number] Oral 858 220 220 Output: Urine 1230 1535 90 Other: Voiding Method Indwelling Catheter Indwelling Catheter ABP, PAP, CO, CI - Last Documented Arterial Blood Pressure 114/62 - Exam In general patient is alert and oriented x 3 in no distress HEENT head normocephalic and atraumatic Neck is supple no JVD no goiter no lymphadenopathy no carotid bruit Chest examination reveals a scattered crackles bilaterally no wheezing Cardiac exam reveals irregular heart sounds S1 and S2 with tachycardia no gallops no murmurs Abdomen is soft nontender no organomegaly with normal bowel sounds Extremity exam reveals no edema no cyanosis or clubbing Neurological examination reveals no gross focal deficits - Labs CBC & Chem 7: 02/17/24 03:40 02/17/24 03:40 Labs: Abnormal Lab Results - Last 24 Hours (Table) 02/16/24 02/16/24 02/16/24 Range/Units 11:21 15:55 21:47 WBC (3.8-10.6) k/uL RBC (4.30-5.90) m/uL Hgb (13.0-17.5) gm/dL Hct (39.0-53.0) % MCV (80.0-100.0) fL RDW (11.5-15.5) % Neutrophils # (Manual) (1.3-7.7) k/uL Lymphocytes # (Manual) (1.0-4.8) k/uL Metamyelocytes # (Man) (0) k/uL Macrocytosis Potassium (3.5-5.1) mmol/L Chloride (98-107) mmol/L Carbon Dioxide (22-30) mmol/L BUN (9-20) mg/dL Glucose (74-99) mg/dL POC Glucose (mg/dL) 133 H 134 H 143 H (70-110) mg/dL Calcium (8.4-10.2) mg/dL 02/17/24 02/17/24 02/17/24 Range/Units 00:39 03:40 03:40 WBC 28.8 H (3.8-10.6) k/uL RBC 2.68 L (4.30-5.90) m/uL Hgb 9.1 L (13.0-17.5) gm/dL Hct 28.4 L (39.0-53.0) % MCV 106.0 H (80.0-100.0) fL RDW 21.5 H (11.5-15.5) % Neutrophils # (Manual) 27.60 H (1.3-7.7) k/uL Lymphocytes # (Manual) 0.86 L (1.0-4.8) k/uL Metamyelocytes # (Man) 0.29 H (0) k/uL Macrocytosis Marked A Potassium 3.0 L (3.5-5.1) mmol/L Chloride 111 H (98-107) mmol/L Carbon Dioxide 21 L (22-30) mmol/L BUN 30 H (9-20) mg/dL Glucose 116 H (74-99) mg/dL POC Glucose (mg/dL) 137 H (70-110) mg/dL Calcium 7.4 L (8.4-10.2) mg/dL 02/17/24 Range/Units 06:04 WBC (3.8-10.6) k/uL RBC (4.30-5.90) m/uL Hgb (13.0-17.5) gm/dL Hct (39.0-53.0) % MCV (80.0-100.0) fL RDW (11.5-15.5) % Neutrophils # (Manual) (1.3-7.7) k/uL Lymphocytes # (Manual) (1.0-4.8) k/uL Metamyelocytes # (Man) (0) k/uL Macrocytosis Potassium (3.5-5.1) mmol/L Chloride (98-107) mmol/L Carbon Dioxide (22-30) mmol/L BUN (9-20) mg/dL Glucose (74-99) mg/dL POC Glucose (mg/dL) 153 H (70-110) mg/dL Calcium (8.4-10.2) mg/dL Microbiology - Last 24 Hours (Table) 02/15/24 15:00 Gram Stain - Final Sputum Sputum Culture - Final Escherichia coli Aleyda albicans Assessment and Plan Assessment: 1. Pneumonia with sepsis as evident by elevated lactic acid and leukocytosis 2. Acute kidney injury secondary to sepsis and dehydration, kidney function improved significantly since admission 3. History of atrial fibrillation maintained on Eliquis, with episodes of rapid ventricular response during this presentation 4. History of CHF 5. Acute hypoxic respiratory failure requiring high flow oxygen supplements pulmonary are following 6. Elevated liver enzymes we will hold statin at this time and recheck 7. Positive blood culture for Staphylococcus aureus, consultation for infectious disease was initiated 8. COVID-19 positive 9. Left-sided pneumothorax requiring left-sided chest tube insertion 10. GI bleed. Surgical services consulted Eliquis currently on hold 11. Hypotension secondary to above patient currently in ICU may require vasopressors for blood pressure support DVT prophylaxis Eliquis. GI prophylaxis Protonix Pulmonary services consulted, infectious disease cardiology consultation r equested echocardiogram ordered Blood and sputum cultures ordered Repeat labs ordered
--- NOTE | 2024-02-17 10:38 | P.PN ---
Subjective Progress Note Date: 02/17/24 SURGICAL PROGRESS NOTE CHIEF COMPLAINT: Shortness of breath HISTORY OF PRESENT ILLNESS: Patient remains in the ICU. Patient off Levophed. Surgical service following regards to possible GI bleed. No further bleeding reported since starting the Eliquis. Patient restarted on Eliquis on 02/14/2024. Hemoglobin stable and going up from 8.9-9.1 PHYSICAL EXAM: VITAL SIGNS: Reviewed. GENERAL: in no acute distress. ABDOMEN: Soft. Nondistended. Nontender. NEUROLOGIC: Awake and alert ASSESSMENT: 1. Possible Acute GI bleed, now resolved 2. Leukocytosis likely due to pneumonia and bacteremia 3. atrial fibrillation PLAN: -No surgical intervention planned -Continue to monitor for any signs or symptoms of bleeding. Continue to monitor hemoglobin Physician Double Bass Player note has been reviewed by physician. Signing provider agrees with the documented findings, assessment, and plan of care. Objective - Vital Signs Vital signs: Vital Signs Temp 97.4 F L 02/17/24 08:00 Pulse 104 H 02/17/24 10:00 Resp 28 H 02/17/24 10:00 BP 110/70 02/17/24 10:00 Pulse Ox 90 L 02/17/24 10:00 FiO2 40 02/16/24 12:48 Intake & Output 02/16/24 02/17/24 02/17/24 18:59 06:59 18:59 Intake Total 1104 563 372 Output Total 1230 1535 440 Balance -126 -972 -68 Weight 85.9 kg 80.3 kg Intake: IV 246 343 152 Magnesium Sulfate-D5w Pmx 100 1 gm In Dextrose/Water 1 100ml.bag @ 100 mls/hr IVPB ONCE ONE Rx#: [id number] Magnesium Sulfate-D5w Pmx 100 1 gm In Dextrose/Water 1 100ml.bag @ 100 mls/hr IVPB ONCE ONE Rx#: [id number] Potassium Chloride 20 meq 100 100 In Water For Injection 1 100ml.bag @ 50 mls/hr IVPB Q2H [facility] Rx#: [id number] Pressure Bag 36 33 12 Sodium Chloride 0.9% 1, 110 110 40 000 ml @ 10 mls/hr IV . Q24H [facility] Rx#:[id number] Oral 858 220 220 Output: Urine 1230 1535 440 Other: Voiding Method Indwelling Catheter Indwelling Catheter ABP, PAP, CO, CI - Last Documented Arterial Blood Pressure 112/60 - Labs CBC & Chem 7: 02/17/24 03:40 02/17/24 03:40 Labs: Abnormal Lab Results - Last 24 Hours (Table) 02/16/24 02/16/24 02/16/24 Range/Units 11:21 15:55 21:47 WBC (3.8-10.6) k/uL RBC (4.30-5.90) m/uL Hgb (13.0-17.5) gm/dL Hct (39.0-53.0) % MCV (80.0-100.0) fL RDW (11.5-15.5) % Neutrophils # (Manual) (1.3-7.7) k/uL Lymphocytes # (Manual) (1.0-4.8) k/uL Metamyelocytes # (Man) (0) k/uL Macrocytosis Potassium (3.5-5.1) mmol/L Chloride (98-107) mmol/L Carbon Dioxide (22-30) mmol/L BUN (9-20) mg/dL Glucose (74-99) mg/dL POC Glucose (mg/dL) 133 H 134 H 143 H (70-110) mg/dL Calcium (8.4-10.2) mg/dL 02/17/24 02/17/24 02/17/24 Range/Units 00:39 03:40 03:40 WBC 28.8 H (3.8-10.6) k/uL RBC 2.68 L (4.30-5.90) m/uL Hgb 9.1 L (13.0-17.5) gm/dL Hct 28.4 L (39.0-53.0) % MCV 106.0 H (80.0-100.0) fL RDW 21.5 H (11.5-15.5) % Neutrophils # (Manual) 27.60 H (1.3-7.7) k/uL Lymphocytes # (Manual) 0.86 L (1.0-4.8) k/uL Metamyelocytes # (Man) 0.29 H (0) k/uL Macrocytosis Marked A Potassium 3.0 L (3.5-5.1) mmol/L Chloride 111 H (98-107) mmol/L Carbon Dioxide 21 L (22-30) mmol/L BUN 30 H (9-20) mg/dL Glucose 116 H (74-99) mg/dL POC Glucose (mg/dL) 137 H (70-110) mg/dL Calcium 7.4 L (8.4-10.2) mg/dL 02/17/24 Range/Units 06:04 WBC (3.8-10.6) k/uL RBC (4.30-5.90) m/uL Hgb (13.0-17.5) gm/dL Hct (39.0-53.0) % MCV (80.0-100.0) fL RDW (11.5-15.5) % Neutrophils # (Manual) (1.3-7.7) k/uL Lymphocytes # (Manual) (1.0-4.8) k/uL Metamyelocytes # (Man) (0) k/uL Macrocytosis Potassium (3.5-5.1) mmol/L Chloride (98-107) mmol/L Carbon Dioxide (22-30) mmol/L BUN (9-20) mg/dL Glucose (74-99) mg/dL POC Glucose (mg/dL) 153 H (70-110) mg/dL Calcium (8.4-10.2) mg/dL Microbiology - Last 24 Hours (Table) 02/15/24 15:00 Gram Stain - Final Sputum Sputum Culture - Final Escherichia coli Aleyda albicans
[2024-02-17 11:33] LABS: Glucose,Whole Blood 141 mg/dL (70-110)
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
[2024-02-17] MEDS: POTASSIUM CHLORIDE ER 20 MEQ TAB.ER PO SCH ×2 (14:44→22:03)
[2024-02-17 17:36] LABS: Glucose,Whole Blood 142 mg/dL (70-110)
[2024-02-17 21:38] LABS: Glucose,Whole Blood 164 mg/dL (70-110)
[2024-02-17] MEDS: SULFAMETHOX-TMP 800-160MG 1 EACH TAB PO SCH (22:04)
[2024-02-18 03:54] LABS: Anisocytosis Moderate; Hypochromasia Marked; MCH 33.9 pg (25.0-35.0); MCHC 31.9 g/dL (31.0-37.0); Mean Platelet Volume 15.4; Platelet Count 179 k/uL (150-450); Poikilocytosis Slight; RBC 2.64 m/uL (4.30-5.90); RDW 21.2 % (11.5-15.5); WBC 28.2 k/uL (3.8-10.6)
[2024-02-18 04:05] LABS: Macrocytosis Marked
[2024-02-18 04:06] LABS: ALT 33 U/L (4-49); AST 33 U/L (17-59); African American GFR (CKD) 72 (>60 ml/min/1.73 sqM); Albumin 1.9 g/dL (3.5-5.0); Alkaline Phosphatase 289 U/L (38-126); Anion Gap -1 mmol/L; Blood Urea Nitrogen 33 mg/dL (9-20); Calcium 7.3 mg/dL (8.4-10.2); Carbon Dioxide 25 mmol/L (22-30); Chloride 111 mmol/L (98-107); Glucose 106 mg/dL (74-99); Magnesium 1.9 mg/dL (1.6-2.3); Non-African American GFR(CKD) 63 (>60 ml/min/1.73 sqM); Potassium 3.8 mmol/L (3.5-5.1); Sodium 135 mmol/L (137-145); Total Protein 4.6 g/dL (6.3-8.2)
[2024-02-18 04:54] LABS: Large Platelets Present; Lymphocytes # (M) 0.85 k/uL (1.0-4.8); Monocytes # (M) 1.41 k/uL (0-1.0); Neutrophils # (M) 25.94 k/uL (1.3-7.7); Neutrophils % (M) 92 %; Nucleated Red Blood Cells 0 /100 WBC (0-0); RBC Fragments Present; Target Cells Present; Tear Drop Cells Present; Total Cells Counted 100
--- NOTE | 2024-02-18 05:04 | XR ---
EXAMINATION TYPE: XR chest 1V portable DATE OF EXAM: 02/18/2024 CLINICAL HISTORY: Difficulty breathing progress study. TECHNIQUE: Single AP portable upright view of the chest is obtained. COMPARISON: Chest x-ray from one day earlier FINDINGS: Persistent multifocal increased opacities bilaterally right greater than left. Cardiac paige houette size is stable and within normal limits with ectatic thoracic aorta redemonstrated. Osseous s tructures are intact. IMPRESSION: Persistent right greater than left diffuse acute infiltrates and/or edema redemonstrated. No significant change from most recent prior. [facility], , 02/18/2024 5:01 AM
[2024-02-18] MEDS: MAGNESIUM SULFATE-D5W PMX 1 GM in DEXTROSE/WATER 1 100ML.BAG IVPB ONE (05:19)
[2024-02-18] MEDS: POTASSIUM CHLORIDE ER 20 MEQ TAB.ER PO SCH (05:19)
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
[2024-02-18 11:35] LABS: Glucose,Whole Blood 128 mg/dL (70-110)
--- NOTE | 2024-02-18 12:34 | P.PN ---
Subjective Progress Note Date: 02/18/24 Rodriguez Jackson, is a 73-year-old male who presented to [facility] emergency room with a chief complaint of worsening shortness of breath, patient stated that he fell 2 weeks ago, he was complaining of left-sided rib pain especially when he takes a deep breath. He was also complaining of cough otherwise he denies any complaints. He was evaluated in the emergency room vital examination on presentation revealed a temperature of 98.8 pulse 118 respiration 18 blood pressure 130/78 pulse ox 97% on 10 L nonrebreather mask Laboratory data revealed a white blood count of 20.8 hemoglobin 12.2 platelet count 310 sodium 134 potassium 3.4 chloride 102 BUN 51 creatinine 1.77 AST 188 ALT 135 troponin 0.012 Testing in the emergency room revealed EKG done in the emergency room revealed atrial fibrillation with rapid ventricular response, chest x-ray revealed patchy left and right lower lobe infiltrates worse on the left. Patient was admitted to medical floor for further evaluation and treatment, pulmonary consultation and cardiology consultation were requested. On 01/23/2024 patient was seen and examined on the medical floor he is alert and oriented x 3 in no apparent distress he reports mild improvement in his shortness of breath, he is still complaining of cough and complaining of chest wall pain otherwise he denies any complaints there is no fever or chills no headache or dizziness no nausea or vomiting no abdominal pain no diarrhea no blood in the stools no burning with urination no frequency or urgency and no hematuria. His temperature is 98.8 pulse 108 respiration 26 blood pressure 138/92 pulse ox 91% on 11 L high flow cannula, white blood count is 26.7 hemoglobin 12.8 platelet count 281 BUN 31 creatinine 1.04 On 01/24/2024 patient is alert and oriented x 3. Patient still having some significant shortness of breath currently on 11 L nasal cannula. Cardiology, pu lmonary and infectious disease services are following. Patient remains on Cardizem drip. Patient remains on IV steroids and IV cefazolin. White blood cell 35.7, creatinine 1.18 bun 40. Current vital signs temp 97.8, heart 76, respiratory rate 26, blood pressure 112/73 with a pulse ox of 91% on 11 L On 01/25/2024 patient is alert and oriented x 3 patient reports some improvement with shortness of breath. Pulmonary cardiology and infectious disease services are following. Cardizem dean has been DC'd patient transition to p.o. Cardizekatey per cardiology continue IV antibiotics and steroids at this time.. Current vital signs temp 96.4, heart rate 74, respiratory rate 18, blood pressure 118/83 with a pulse ox of 97% on 10 L high flow. On 01/26/2024 patient was seen and examined on the medical floor he is alert and oriented x 3 in mild respiratory distress, he is maintained on high flow oxygen of 11 L/min, he is still complaining of cough and chest discomfort otherwise he denies any complaints, there is no fever or chills no headache or dizziness no chest pain no nausea or vomiting no abdominal pain no diarrhea no blood in the stools no burning with urination no frequency or urgency and no hematuria. Testing for COVID was positive yesterday. Pulmonary and infectious disease are following. On 01/27/2024 patient is alert and oriented x 3 patient continued to having increase oxygen demands. Per nursing staff pulmonary services were notified patient currently on high flow [address] scan of chest this morning which showed diffuse groundglass opacities and correlation for atypical pneumonia. Patient remains on IV Kefzol and prednisone. Pulmonary and infectious disease services following. Cardiology also following On 01/28/2024 patient is alert and oriented x 3. Patient at this time is resting comfortably in bed. Patient remains on Airvo 60%. Temp 97.6, heart rate 95, respiratory rate 24, blood pressure 100/67. Pulmonary cardiology and infectious disease are following patient remains on IV Kefzol and Solu-Medrol On 01/29/2024 patient was seen and examined on the medical floor he is alert and oriented x 3 in no apparent distress,he is still maintained on high flow oxygen, he is complaining of generalized weakness and complaining of constipation he has very poor oral intake, there is no fever or chills no headache or dizziness no chest pain, he has shortness of breath with any activity no palpitation he has continuous cough no nausea or vomiting no abdominal pain no diarrhea and no urinary symptoms. On 01/30/2024 patient was seen and examined in the ICU, he is alert responsive in no apparent distress maintained on high flow oxygen via Airvo, he was transferred to ICU due to worsening shortness of breath, chest x-ray today revealed interval development of a large left-sided pneumothorax estimated at 40%, he underwent chest tube placement, on the left. His vital exam reveals a temperature of 97.5 pulse 108 respiration 33 blood pressure 133/82 pulse ox is 98% on high flow cannula with FiO2 of 50% On 01/31/2024 patient remains in the intensive care unit. Chest tube in place. Current vital signs temp 97.9, heart rate 84, respiratory rate 23, blood pressure 102/71 with a pulse ox of 97% on high flow of 40%. Patient remains s hort of breath. Patient denies chest pain. Patient denies nausea vomiting or diarrhea. Patient denies any urinary burning or frequency On 02/01/2024 patient is alert and oriented x 3. Patient remains in the intensive care unit. Tube remains in place. Current vital signs temp 97.7, heart rate 79, respiratory rate 24, blood pressure 117/76 with a pulse ox of 100% on 6 L high flow. Patient reports some improvement with shortness of breath. Patient denies chest pain. Patient denies nausea vomiting or diarrhea. On 02/02/2024 patient was seen and examined in the ICU, he is alert and oriented x 3 in no apparent distress, he is complaining of discomfort at the chest tube site, and complaining of shortness of breath otherwise he denies any complaints there is no fever or chills no headache or dizziness, no chest pain, he has occasional cough no nausea or vomiting no abdominal pain no diarrhea no urinary symptoms. Temperature is 97.4 pulse 90 respiration 23 blood pressure 106/78 pulse ox 95% on 4 L nasal cannula, white blood count 45.7 hemoglobin 11.1 platelet count 199 BUN 45 creatinine 0.89 On 02/03/2024 patient remains in the ICU alert and oriented x 3. Patient still has chest tube complaining of some discomfort at site. Speech services at bedside assessing swallow still recommending nectar thick liquids. Current vital signs temp 97.6, heart rate 93, respiratory rate 21. Patient denies chest pain or shortness of breath. Patient denies nausea vomiting or diarrhea. Patient denies any urinary burning and frequency. On 02/04/2024 patient was seen and examined in the intensive care unit, he is alert and oriented in no apparent distress, he is complaining of pain in the chest wall site of the chest tube otherwise he denies any complaints, there is no fever or chills no headache or dizziness no chest pain no shortness of breath no cough no nausea or vomiting no abdominal pain no diarrhea no urinary symptoms, temperature is 97.5 pulse 89 respiration 16 blood pressure 108/68 pulse ox 96% on 4 L nasal cannula. His white blood count is 28.9 hemoglobin 11.0 platelet count 147 sodium 136 potassium 3.9 chloride 111 CO2 23 BUN 30 creatinine 0.94 On 02/05/2024 patient remains in the intensive care unit alert and oriented 3. Patient is down to 2 L. Chest tube remains in place.Patient's appetite remains poor patient has been started on Megace. Will consult when necessary for possible discharge planning. Patient denies chest pain or shortness breath. Patient denies nausea vomiting or diarrhea. Patient denies any urinary burning or frequency. Current vital signs temp 97.6, heart rate 80, respiratory rate 19,, Blood pressure 98/70 with pulse ox 95% on 2 L On 02/06/2024 patient was seen and examined on the telemetry floor, he is alert and oriented x 3. Current vital signs temp 97.9, heart rate 93, respiratory rate 18. blood pressure 122/60 Patient denies chest pain or shortness of breath. Patient denies nausea vomiting or diarrhea. Patient denies any urinary burning and frequency. On 03/05/2024 patient is alert and oriented x 3. Patient complaining about difficulty sleeping melatonin added. Discharge planning to [facility]. Patient remain s with chest tube awaiting further recommendations from pulmonary services. Current vital signs temp 97.3, heart rate 78, respiratory rate 18, blood pressure 133/80 with a pulse ox of 93% on 4 L. Patient denies chest pain or shortness of breath. Patient denies nausea vomiting or diarrhea. Patient denies any urinary burning or frequency On 02/08/2024 patient is alert and oriented x 3. Cardiothoracic surgery was consulted due to left-sided pneumothorax with chest tube placement with continuous airleak at this time recommendations to continue wall suction and will monitor. Patient denies chest pain or shortness of breath. Patient denies nausea vomiting or diarrhea. Patient denies any urinary burning or frequency. Current temp 97.3, heart rate 68, respiratory rate 18, blood pressure 96/63 with a pulse ox of 92% on 4 L On 02/09/2024 patient is alert and oriented x 3. Patient was transferred to the intensive care unit last night due to large bloody bowel movement and hypotension. At this time patient's Eliquis has been on hold. Surgical services have been consulted. Patient denies chest pain or shortness of breath. Patient denies nausea vomiting or diarrhea. Patient denies any urinary burning or frequency. Patient may require norepinephrine for blood pressure support co ntinue ICU management at this time. Critical care services following On 02/10/2024 patient is alert and oriented x 3. Per nursing staff patient has had no further episodes of large-volume bloody bowel movement. Patient still having some hypotension. Patient was evaluated by surgical services Eliquis remains on hold hemoglobin remained stable continue monitoring at this time. Patient also being followed by cardiothoracic surgery chest tube remains to suction at this time. Patient denies chest pain or shortness of breath. Patient denies any urinary burning or frequency. Patient denies nausea vomiting or diarrhea. On 02/11/2024 patient was seen and examined in the ICU, he is alert and oriented x 3 in no apparent distress, he is still complaining of left-sided chest wall pain site of his chest tube, otherwise he denies any complaints there is no fever or chills no headache or dizziness no chest pain no shortness of breath no cough no nausea or vomiting no abdominal pain no diarrhea no blood in the stools no burning with urination no frequency or urgency and no hematuria, patient has very low oral intake, he was encouraged in length in regard to increasing his diet and taking some protein supplements, albumin is low to 1.7, alternatively patient may need a Dobbhoff tube with enteral feeding. Will continue to follow closely On 02/12/2024 patient is alert and oriented x 3 remains in the ICU. Patient remains on IV Lasix patient having increased lower extremity edema. Appetite remains poor. Current vital signs temp 98.7, heart rate 89, respiratory rate 19, blood pressure 88/52 with a pulse ox of 93% on Airvo 60%. Patient denies chest pain or shortness of breath. Patient denies nausea vomiting or diarrhea. Patient denies any urinary burning or frequency On 02/13/2024 patient's alert and oriented remains in the intensive care unit. Remains on IV Lasix. Patient also remains on IV Zosyn. Multiple consults following. Patient remains on Airvo 60% and patient was started on Levophed for pressure support On 02/14/2024 patient is alert and oriented x 3. Edema has slightly improved. Patient remains on Levophed. Current vital signs temp 98.0, heart rate 94, r espiratory rate 19, blood pressure 102/73 with a pulse ox of 96% on Airvo 60%. Hemoglobin 8.9, white blood cell 28.6, creatinine 1.14 bun 33 On 02/15/2024 patient is alert and oriented x 3 patient remains in the intensive care unit Levophed getting weaned down per nursing staff chest tube has been removed. Patient remains on Airvo. Current vital signs temp 98.2, heart 81, respiratory rate 15, blood pressure 105/67 with a pulse ox of 112/64. Pulse ox 94% with an Airvo FiO2 of 50%. Patient denies chest pain or shortness of breath. Patient denies nausea vomiting or diarrhea. Patient denies any urinary burning or frequency. On 02/16/2024 patient was seen and examined in the ICU he is alert and oriented x 3 in no apparent distress there is no fever or chills no headache or dizziness no chest pain no shortness of breath, at rest patient is maintained on Airvo, high flow oxygen, no nausea or vomiting no abdominal pain no diarrhea no urinary symptoms. On 02/17/2024 patient remains in the ICU alert and oriented x 3. Patient is down to high flow and Levophed has been turned off. Per critical care will continue to monitor patient in the ICU for an additional 24 hours. Current temp 97.4, heart rate 87, respiratory rate 17, blood pressure 114/62 with a pulse ox of 95% on high flow 6 L. Patient denies chest pain or shortness of breath. Patient denies nausea vomiting or diarrhea. Patient denies any urinary burning or frequency On 02/18/2024 patient was seen and examined on the telemetry floor, he is alert and oriented x 3 in no apparent distress, he is still complaining of shortness of breath , he is maintained on oxygen 4 L via nasal cannula , he is complaining of chest wall pain site of his old chest tube , otherwise he denies any complaints at this time , there is no fever or chills, no headache or dizziness no chest pain he has occasional cough no nausea or vomiting no abdominal pain no diarrhea and no urinary symptoms, patient has been bedbound for several days, he will need to transfer to rehab when medically clear. Objective - Vital Signs Vital signs: Vital Signs Temp 97.6 F 02/18/24 07:06 Pulse 100 02/18/24 07:06 Resp 17 02/18/24 07:06 BP 110/70 02/18/24 07:06 Pulse Ox 95 02/18/24 07:06 FiO2 40 02/16/24 12:48 Intake & Output 02/17/24 02/18/24 02/18/24 18:59 06:59 18:59 Intake Total 576 143 Output Total 860 1430 Balance -284 -1287 Weight 80.5 kg Intake: IV 256 143 Potassium Chloride 20 meq 100 In Water For Injection 1 100ml.bag @ 50 mls/hr IVPB Q2H [facility] Rx#: [id number] Pressure Bag 36 33 Sodium Chloride 0.9% 1, 120 110 000 ml @ 10 mls/hr IV . Q24H [facility] Rx#:[id number] Oral 320 Output: Urine 860 1430 Other: Voiding Method Indwelling Catheter Indwelling Catheter ABP, PAP, CO, CI - Last Documented Arterial Blood Pressure 122/71 - Exam In general patient is alert and oriented x 3 in no distress HEENT head normocephalic and atraumatic Neck is supple no JVD no goiter no lymphadenopathy no carotid bruit Chest examination reveals a scattered crackles bilaterally no wheezing Cardiac exam reveals irregular heart sounds S1 and S2 with tachycardia no gallops no murmurs Abdomen is soft nontender no organomegaly with normal bowel sounds Extremity exam reveals no edema no cyanosis or clubbing Neurological examination reveals no gross focal deficits - Labs CBC & Chem 7: 02/18/24 03:44 02/18/24 03:44 Labs: Abnormal Lab Results - Last 24 Hours (Table) 02/17/24 02/17/24 02/17/24 Range/Units 13:30 17:34 21:36 WBC (3.8-10.6) k/uL RBC (4.30-5.90) m/uL Hgb (13.0-17.5) gm/dL Hct (39.0-53.0) % MCV (80.0-100.0) fL RDW (11.5-15.5) % Neutrophils # (Manual) (1.3-7.7) k/uL Lymphocytes # (Manual) (1.0-4.8) k/uL Monocytes # (Manual) (0-1.0) k/uL Macrocytosis Sodium (137-145) mmol/L Potassium 3.4 L (3.5-5.1) mmol/L Chloride (98-107) mmol/L BUN (9-20) mg/dL Glucose (74-99) mg/dL POC Glucose (mg/dL) 142 H 164 H (70-110) mg/dL Calcium (8.4-10.2) mg/dL Alkaline Phosphatase (38-126) U/L Total Protein (6.3-8.2) g/dL Albumin (3.5-5.0) g/dL 02/18/24 02/18/24 02/18/24 Range/Units 03:44 03:44 11:34 WBC 28.2 H (3.8-10.6) k/uL RBC 2.64 L (4.30-5.90) m/uL Hgb 9.0 L (13.0-17.5) gm/dL Hct 28.0 L (39.0-53.0) % MCV 106.0 H (80.0-100.0) fL RDW 21.2 H (11.5-15.5) % Neutrophils # (Manual) 25.94 H (1.3-7.7) k/uL Lymphocytes # (Manual) 0.85 L (1.0-4.8) k/uL Monocytes # (Manual) 1.41 H (0-1.0) k/uL Macrocytosis Marked A Sodium 135 L (137-145) mmol/L Potassium (3.5-5.1) mmol/L Chloride 111 H (98-107) mmol/L BUN 33 H (9-20) mg/dL Glucose 106 H (74-99) mg/dL POC Glucose (mg/dL) 128 H (70-110) mg/dL Calcium 7.3 L (8.4-10.2) mg/dL Alkaline Phosphatase 289 H (38-126) U/L Total Protein 4.6 L (6.3-8.2) g/dL Albumin 1.9 L (3.5-5.0) g/dL Microbiology - Last 24 Hours (Table) 02/15/24 15:00 Gram Stain - Final Sputum Sputum Culture - Final Escherichia coli Aleyda albicans Assessment and Plan Assessment: 1. Pneumonia with sepsis as evident by elevated lactic acid and leukocytosis 2. Acute kidney injury secondary to sepsis and dehydration, kidney function improved significantly since admission 3. History of atrial fibrillation maintained on Eliquis, with episodes of rapid ventricular response during this presentation 4. History of CHF 5. Acute hypoxic respiratory failure requiring high flow oxygen supplements pulmonary are following 6. Elevated liver enzymes we will hold statin at this time and recheck 7. Positive blood culture for Staphylococcus aureus, consultation for infectious disease was initiated 8. COVID-19 positive 9. Left-sided pneumothorax requiring left-sided chest tube insertion 10. GI bleed. Surgical services consulted Eliquis currently on hold 11. Hypotension secondary to above patient currently in ICU may require vasopressors for blood pressure support DVT prophylaxis Eliquis. GI prophylaxis Protonix Pulmonary services consulted, infectious disease cardiology consultation requested echocardiogram ordered Blood and sputum cultures ordered Repeat labs ordered
--- NOTE | 2024-02-18 13:29 | P.PN ---
Subjective Progress Note Date: 02/18/24 CHIEF COMPLAINT: Anemia HISTORY OF PRESENT ILLNESS: The patient is a 73-year-old male with multiple me dical comorbidities including pneumonia, anemia for which general surgery is following for potential GI bleed. Patient is resting bed comfortably. He is tolerating regular diet. In fact, he is requesting Pepsi with ice. He denies abdominal pain. At the time of my assessment, patient is being evaluated by infectious disease. ROS: No reports of nausea and vomiting. No bowel movements. No fevers or chills. No new chest pain. No productive sputum PHYSICAL EXAM: VITAL SIGNS: Reviewed CONSTITUTIONAL: Well developed and in no acute distress. EYES: Conjuctivae without sclera icterus. Extraocular movements grossly intact. HEAD, EARS, NOSE, THROAT: Moist buccal mucosa. Head is atraumatic, normocephalic. Hears conversational speech. No nasal drainage. RESPIRATORY: Non-labored respirations and equal bilateral excursions. CARDIOVASCULAR: Palpable 2+ radial pulses. ABDOMEN: Nontender. Nondistended. MUSCULOSKELETAL: No gross deformity of the lower extremities noted. No clubbing. No cyanosis. Generalized weakness. Has muscle wasting. SKIN: Good skin turgor. Well perfused. NEUROLOGIC: Cranial nerves II through XII grossly intact. No focal or lateralizing signs. PSYCH: Appropriate affect. Alert and oriented to person, place and time. CLINICAL LABS: Reviewed. White blood cell count down from 44,000 to over 28,000. Hemoglobin stable 8.9 up to 9.1, 9.0 today. ASSESSMENT: 1. Persistent leukocytosis 2. Pneumonia 3. Anemia with GI bleed, stable PLAN: 1. May continue with diet. 2. Monitor hemoglobin. 3. Leukocytosis and antibiotic management per infectious disease team. Objective - Vital Signs Vital signs: Vital Signs Temp 97.6 F 02/18/24 07:06 Pulse 100 02/18/24 07:06 Resp 17 02/18/24 07:06 BP 110/70 02/18/24 07:06 Pulse Ox 95 02/18/24 07:06 FiO2 40 02/16/24 12:48 Intake & Output 02/17/24 02/18/24 02/18/24 18:59 06:59 18:59 Intake Total 576 143 Output Total 860 1430 Balance -284 -1287 Weight 80.5 kg Intake: IV 256 143 Potassium Chloride 20 meq 100 In Water For Injection 1 100ml.bag @ 50 mls/hr IVPB Q2H [facility] Rx#: [id number] Pressure Bag 36 33 Sodium Chloride 0.9% 1, 120 110 000 ml @ 10 mls/hr IV . Q24H [facility] Rx#:[id number] Oral 320 Output: Urine 860 1430 Other: Voiding Method Indwelling Catheter Indwelling Catheter ABP, PAP, CO, CI - Last Documented Arterial Blood Pressure 122/71 - Labs CBC & Chem 7: 02/18/24 03:44 02/18/24 03:44 Labs: Abnormal Lab Results - Last 24 Hours (Table) 02/17/24 02/17/24 02/17/24 Range/Units 13:30 17:34 21:36 WBC (3.8-10.6) k/uL RBC (4.30-5.90) m/uL Hgb (13.0-17.5) gm/dL Hct (39.0-53.0) % MCV (80.0-100.0) fL RDW (11.5-15.5) % Neutrophils # (Manual) (1.3-7.7) k/uL Lymphocytes # (Manual) (1.0-4.8) k/uL Monocytes # (Manual) (0-1.0) k/uL Macrocytosis Sodium (137-145) mmol/L Potassium 3.4 L (3.5-5.1) mmol/L Chloride (98-107) mmol/L BUN (9-20) mg/dL Glucose (74-99) mg/dL POC Glucose (mg/dL) 142 H 164 H (70-110) mg/dL Calcium (8.4-10.2) mg/dL Alkaline Phosphatase (38-126) U/L Total Protein (6.3-8.2) g/dL Albumin (3.5-5.0) g/dL 02/18/24 02/18/24 02/18/24 Range/Units 03:44 03:44 11:34 WBC 28.2 H (3.8-10.6) k/uL RBC 2.64 L (4.30-5.90) m/uL Hgb 9.0 L (13.0-17.5) gm/dL Hct 28.0 L (39.0-53.0) % MCV 106.0 H (80.0-100.0) fL RDW 21.2 H (11.5-15.5) % Neutrophils # (Manual) 25.94 H (1.3-7.7) k/uL Lymphocytes # (Manual) 0.85 L (1.0-4.8) k/uL Monocytes # (Manual) 1.41 H (0-1.0) k/uL Macrocytosis Marked A Sodium 135 L (137-145) mmol/L Potassium (3.5-5.1) mmol/L Chloride 111 H (98-107) mmol/L BUN 33 H (9-20) mg/dL Glucose 106 H (74-99) mg/dL POC Glucose (mg/dL) 128 H (70-110) mg/dL Calcium 7.3 L (8.4-10.2) mg/dL Alkaline Phosphatase 289 H (38-126) U/L Total Protein 4.6 L (6.3-8.2) g/dL Albumin 1.9 L (3.5-5.0) g/dL Microbiology - Last 24 Hours (Table) 02/15/24 15:00 Gram Stain - Final Sputum Sputum Culture - Final Escherichia coli Aleyda albicans
--- NOTE | 2024-02-18 14:34 | P.PN ---
Subjective Progress Note Date: 02/17/24 Principal diagnosis: Reason for follow-up is left-sided pneumonia and MSSA bacteremia Patient is a 73-year-old with a past medical history significant for atrial fibrillation heart failure , close head injury patient presenting to the hospital for evaluation of increasing shortness of breath left lower chest pain, patient has been diagnosed with left-sided pneumonia and did have a positive blood culture with MSSA prompted this consultation.Patient did have a chest x-ray morning of 01/30/2024 with evidence of left-sided pneumothorax in this patient who status post chest tube placement on 01/30/2024 by pulmonary On today's evaluation that is 02/17/2024, the patient remains to be afebrile breathing slightly comfortably and is down to 6 L nasal cannula oxygen patient denies having any chest pain still have a cough not bringing up any sputum no vomiting or diarrhea. Patient white count is 28.8 creatinine is 1.24 Objective - Vital Signs Vital signs: Vital Signs Temp 97.4 F L 02/17/24 08:00 Pulse 104 H 02/17/24 10:00 Resp 28 H 02/17/24 10:00 BP 110/70 02/17/24 10:00 Pulse Ox 90 L 02/17/24 10:00 FiO2 40 02/16/24 12:48 Intake & Output 02/16/24 02/17/24 02/17/24 18:59 06:59 18:59 Intake Total 1104 563 372 Output Total 1230 1535 440 Balance -126 -972 -68 Weight 85.9 kg 80.3 kg Intake: IV 246 343 152 Magnesium Sulfate-D5w Pmx 100 1 gm In Dextrose/Water 1 100ml.bag @ 100 mls/hr IVPB ONCE ONE Rx#: [id number] Magnesium Sulfate-D5w Pmx 100 1 gm In Dextrose/Water 1 100ml.bag @ 100 mls/hr IVPB ONCE ONE Rx#: [id number] Potassium Chloride 20 meq 100 100 In Water For Injection 1 100ml.bag @ 50 mls/hr IVPB Q2H [facility] Rx#: [id number] Pressure Bag 36 33 12 Sodium Chloride 0.9% 1, 110 110 40 000 ml @ 10 mls/hr IV . Q24H [facility] Rx#:[id number] Oral 858 220 220 Output: Urine 1230 1535 440 Other: Voiding Method Indwelling Catheter Indwelling Catheter ABP, PAP, CO, CI - Last Documented Arterial Blood Pressure 112/60 - Exam GENERAL DESCRIPTION: An elderly male lying in bed in no distress RESPIRATORY SYSTEM: Unlabored breathing , close bedside left side HEART: S1 S2 regular rate and rhythm , ABDOMEN: Soft , no tenderness EXTREMITIES: No edema feet - Labs CBC & Chem 7: 02/18/24 03:44 02/18/24 03:44 Labs: Abnormal Lab Results - Last 24 Hours (Table) 02/16/24 02/16/24 02/16/24 Range/Units 11:21 15:55 21:47 WBC (3.8-10.6) k/uL RBC (4.30-5.90) m/uL Hgb (13.0-17.5) gm/dL Hct (39.0-53.0) % MCV (80.0-100.0) fL RDW (11.5-15.5) % Neutrophils # (Manual) (1.3-7.7) k/uL Lymphocytes # (Manual) (1.0-4.8) k/uL Metamyelocytes # (Man) (0) k/uL Macrocytosis Potassium (3.5-5.1) mmol/L Chloride (98-107) mmol/L Carbon Dioxide (22-30) mmol/L BUN (9-20) mg/dL Glucose (74-99) mg/dL POC Glucose (mg/dL) 133 H 134 H 143 H (70-110) mg/dL Calcium (8.4-10.2) mg/dL 02/17/24 02/17/24 02/17/24 Range/Units 00:39 03:40 03:40 WBC 28.8 H (3.8-10.6) k/uL RBC 2.68 L (4.30-5.90) m/uL Hgb 9.1 L (13.0-17.5) gm/dL Hct 28.4 L (39.0-53.0) % MCV 106.0 H (80.0-100.0) fL RDW 21.5 H (11.5-15.5) % Neutrophils # (Manual) 27.60 H (1.3-7.7) k/uL Lymphocytes # (Manual) 0.86 L (1.0-4.8) k/uL Metamyelocytes # (Man) 0.29 H (0) k/uL Macrocytosis Marked A Potassium 3.0 L (3.5-5.1) mmol/L Chloride 111 H (98-107) mmol/L Carbon Dioxide 21 L (22-30) mmol/L BUN 30 H (9-20) mg/dL Glucose 116 H (74-99) mg/dL POC Glucose (mg/dL) 137 H (70-110) mg/dL Calcium 7.4 L (8.4-10.2) mg/dL 02/17/24 Range/Units 06:04 WBC (3.8-10.6) k/uL RBC (4.30-5.90) m/uL Hgb (13.0-17.5) gm/dL Hct (39.0-53.0) % MCV (80.0-100.0) fL RDW (11.5-15.5) % Neutrophils # (Manual) (1.3-7.7) k/uL Lymphocytes # (Manual) (1.0-4.8) k/uL Metamyelocytes # (Man) (0) k/uL Macrocytosis Potassium (3.5-5.1) mmol/L Chloride (98-107) mmol/L Carbon Dioxide (22-30) mmol/L BUN (9-20) mg/dL Glucose (74-99) mg/dL POC Glucose (mg/dL) 153 H (70-110) mg/dL Calcium (8.4-10.2) mg/dL Microbiology - Last 24 Hours (Table) 02/15/24 15:00 Gram Stain - Final Sputum Sputum Culture - Final Escherichia coli Aleyda albicans Assessment and Plan (1) Bacteremia due to methicillin susceptible Staphylococcus aureus (MSSA) Current Visit: Yes Status: Acute Code(s): R78.81 - BACTEREMIA; B95.61 - METH ICILLIN SUSCEP STAPH INFCT CAUSING DIS CLASSD [facility] SNOMED Code(s): 313070259 (2) Pneumonia Current Visit: Yes Status: Acute Code(s): J18.9 - PNEUMONIA, UNSPECIFIED ORGANISM SNOMED Code(s): 599860567 (3) Sepsis Current Visit: Yes Status: Acute Code(s): A41.9 - SEPSIS, UNSPECIFIED ORGANISM SNOMED Code(s): 76260550 Plan: 1patient presented to hospital with sepsis in this patient who did have leukocytosis tachycardia meeting criteria for SIRS source is left lower lobe pneumonia 2-patient with MSSA bacteremia source likely pneumonia, blood culture repeat has been negative so far 3-patient CT of the chest did not show any empyema echocardiogram did not show any valvular abnormalities repeat blood culture negative 4patient did have complication of left-sided pneumothorax s/p is chest tube placement. Patient did have persistent leak CT surgery is closely following the patient considered to be high risk for any surgical procedure 5 the patient is afebrile the patient white count is same 28,000 patient's sputum did grew E. coli Bactrim DS added by pulmonary watch his kidney function closely Dictation was produced using [employer] dictation software. please excuse any grammatical, word or spelling errors. Time with Patient: Less than 30
--- NOTE | 2024-02-18 14:35 | P.PN ---
Subjective Progress Note Date: 02/18/24 Principal diagnosis: Reason for follow-up is left-sided pneumonia and MSSA bacteremia Patient is a 73-year-old with a past medical history significant for atrial fibrillation heart failure , close head injury patient presenting to the hospital for evaluation of increasing shortness of breath left lower chest pain, patient has been diagnosed with left-sided pneumonia and did have a positive blood culture with MSSA prompted this consultation.Patient did have a chest x-ray morning of 01/30/2024 with evidence of left-sided pneumothorax in this patient who status post chest tube placement on 01/30/2024 by pulmonary On today's evaluation that is 02/18/2024, patient did not have any fever and denies any chills, patient is breathing comfortably down to 4 L nasal oxygen patient with no chest pain and cough is decreased in intensity patient did not have any abdominal pain nausea vomiting or any loose stools. Patient white count is 28.2 creatinine is 1.16 Objective - Vital Signs Vital signs: Vital Signs Temp 97.6 F 02/18/24 07:06 Pulse 100 02/18/24 07:06 Resp 17 02/18/24 07:06 BP 110/70 02/18/24 07:06 Pulse Ox 95 02/18/24 07:06 FiO2 40 02/16/24 12:48 Intake & Output 02/17/24 02/18/24 02/18/24 18:59 06:59 18:59 Intake Total 576 143 Output Total 860 1430 Balance -284 -1287 Weight 80.5 kg Intake: IV 256 143 Potassium Chloride 20 meq 100 In Water For Injection 1 100ml.bag @ 50 mls/hr IVPB Q2H [facility] Rx#: [id number] Pressure Bag 36 33 Sodium Chloride 0.9% 1, 120 110 000 ml @ 10 mls/hr IV . Q24H [facility] Rx#:[id number] Oral 320 Output: Urine 860 1430 Other: Voiding Method Indwelling Catheter Indwelling Catheter ABP, PAP, CO, CI - Last Documented Arterial Blood Pressure 122/71 - Exam GENERAL DESCRIPTION: An elderly male lying in bed in no distress RESPIRATORY SYSTEM: Unlabored breathing , close bedside left side HEART: S1 S2 regular rate and rhythm , ABDOMEN: Soft , no tenderness EXTREMITIES: No edema feet - Labs CBC & Chem 7: 02/18/24 03:44 02/18/24 03:44 Labs: Abnormal Lab Results - Last 24 Hours (Table) 02/17/24 02/17/24 02/17/24 Range/Units 13:30 17:34 21:36 WBC (3.8-10.6) k/uL RBC (4.30-5.90) m/uL Hgb (13.0-17.5) gm/dL Hct (39.0-53.0) % MCV (80.0-100.0) fL RDW (11.5-15.5) % Neutrophils # (Manual) (1.3-7.7) k/uL Lymphocytes # (Manual) (1.0-4.8) k/uL Monocytes # (Manual) (0-1.0) k/uL Macrocytosis Sodium (137-145) mmol/L Potassium 3.4 L (3.5-5.1) mmol/L Chloride (98-107) mmol/L BUN (9-20) mg/dL Glucose (74-99) mg/dL POC Glucose (mg/dL) 142 H 164 H (70-110) mg/dL Calcium (8.4-10.2) mg/dL Alkaline Phosphatase (38-126) U/L Total Protein (6.3-8.2) g/dL Albumin (3.5-5.0) g/dL 02/18/24 02/18/24 02/18/24 Range/Units 03:44 03:44 11:34 WBC 28.2 H (3.8-10.6) k/uL RBC 2.64 L (4.30-5.90) m/uL Hgb 9.0 L (13.0-17.5) gm/dL Hct 28.0 L (39.0-53.0) % MCV 106.0 H (80.0-100.0) fL RDW 21.2 H (11.5-15.5) % Neutrophils # (Manual) 25.94 H (1.3-7.7) k/uL Lymphocytes # (Manual) 0.85 L (1.0-4.8) k/uL Monocytes # (Manual) 1.41 H (0-1.0) k/uL Macrocytosis Marked A Sodium 135 L (137-145) mmol/L Potassium (3.5-5.1) mmol/L Chloride 111 H (98-107) mmol/L BUN 33 H (9-20) mg/dL Glucose 106 H (74-99) mg/dL POC Glucose (mg/dL) 128 H (70-110) mg/dL Calcium 7.3 L (8.4-10.2) mg/dL Alkaline Phosphatase 289 H (38-126) U/L Total Protein 4.6 L (6.3-8.2) g/dL Albumin 1.9 L (3.5-5.0) g/dL Microbiology - Last 24 Hours (Table) 02/15/24 15:00 Gram Stain - Final Sputum Sputum Culture - Final Escherichia coli Aleyda albicans Assessment and Plan (1) Bacteremia due to methicillin susceptible Staphylococcus aureus (MSSA) Current Visit: Yes Status: Acute Code(s): R78.81 - BACTEREMIA; B95.61 - METHICILLIN SUSCEP STAPH INFCT CAUSING DIS CLASSD [id number] SNOMED Code(s): 256516701 (2) Pneumonia Current Visit: Yes Status: Acute Code(s): J18.9 - PNEUMONIA, UNSPECIFIED ORGANISM SNOMED Code(s): 866344794 (3) Sepsis Current Visit: Yes Status: Acute Code(s): A41.9 - SEPSIS, UNSPECIFIED ORGANISM SNOMED Code(s): 87151854 Plan: 1patient presented to hospital with sepsis in this patient who did have leukocytosis tachycardia meeting criteria for SIRS source is left lower lobe pneumonia 2-patient with MSSA bacteremia source likely pneumonia, blood culture repeat has been negative so far 3-patient CT of the chest did not show any empyema echocardiogram did not show any valvular abnormalities repeat blood culture negative 4patient did have complication of left-sided pneumothorax s/p is chest tube placement. Patient did have persistent leak CT surgery is closely following the patient considered to be high risk for any surgical procedure 5 the patient is afebrile the patient white count is same 28,000 as of yester day could be related to the steroids 6patient's sputum did grew E. coli with the patient is currently being treated with Bactrim DS added by pulmonary as of 02/17/2024 procalcitonin was normal Dictation was produced using [employer] dictation software. please excuse any grammatical, word or spelling errors. Time with Patient: Less than 30
[2024-02-18 17:16] LABS: Glucose,Whole Blood 162 mg/dL (70-110)
[2024-02-18 21:01] LABS: Glucose,Whole Blood 184 mg/dL (70-110)
[2024-02-19 06:17] LABS: Glucose,Whole Blood 115 mg/dL (70-110)
--- NOTE | 2024-02-19 09:56 | P.PN ---
Subjective Progress Note Date: 02/19/24 Rodriguez Jackson, is a 73-year-old male who presented to [facility] emergency room with a chief complaint of worsening shortness of breath, patient stated that he fell 2 weeks ago, he was complaining of left-sided rib pain especially when he takes a deep breath. He was also complaining of cough otherwise he denies any complaints. He was evaluated in the emergency room vital examination on presentation revealed a temperature of 98.8 pulse 118 respiration 18 blood pressure 130/78 pulse ox 97% on 10 L nonrebreather mask Laboratory data revealed a white blood count of 20.8 hemoglobin 12.2 platelet count 310 sodium 134 potassium 3.4 chloride 102 BUN 51 creatinine 1.77 AST 188 ALT 135 troponin 0.012 Testing in the emergency room revealed EKG done in the emergency room revealed atrial fibrillation with rapid ventricular response, chest x-ray revealed patchy left and right lower lobe infiltrates worse on the left. Patient was admitted to medical floor for further evaluation and treatment, pulmonary consultation and cardiology consultation were requested. On 01/23/2024 patient was seen and examined on the medical floor he is alert and oriented x 3 in no apparent distress he reports mild improvement in his shortness of breath, he is still complaining of cough and complaining of chest wall pain otherwise he denies any complaints there is no fever or chills no headache or dizziness no nausea or vomiting no abdominal pain no diarrhea no blood in the stools no burning with urination no frequency or urgency and no hematuria. His temperature is 98.8 pulse 108 respiration 26 blood pressure 138/92 pulse ox 91% on 11 L high flow cannula, white blood count is 26.7 hemoglobin 12.8 platelet count 281 BUN 31 creatinine 1.04 On 01/24/2024 patient is alert and oriented x 3. Patient still having some significant shortness of breath currently on 11 L nasal cannula. Cardiology, pulmonary and infectious disease services are following. Patient remains on Cardizem drip. Patient remains on IV steroids and IV cefazolin. White blood cell 35.7, creatinine 1.18 bun 40. Current vital signs temp 97.8, heart 76, respiratory rate 26, blood pressure 112/73 with a pulse ox of 91% on 11 L On 01/25/2024 patient is alert and oriented x 3 patient reports some improvement with shortness of breath. Pulmonary cardiology and infectious disease services are following. Cardizem drip has been DC'd patient transition to [facility] per cardiology continue IV antibiotics and steroids at this time.. Current vital signs temp 96.4, heart rate 74, respiratory rate 18, blood pressure 118/83 with a pulse ox of 97% on 10 L high flow. On 01/26/2024 patient was seen and examined on the medical floor he is alert and oriented x 3 in mild respiratory distress, he is maintained on high flow oxygen of 11 L/min, he is still complaining of cough and chest discomfort otherwise he denies any complaints, there is no fever or chills no headache or dizziness no chest pain no nausea or vomiting no abdominal pain no diarrhea no blood in the stools no burning with urination no frequency or urgency and no hematuria. Testing for COVID was positive yesterday. Pulmonary and infectious disease are following. On 01/27/2024 patient is alert and oriented x 3 patient continued to having increase oxygen demands. Per nursing staff pulmonary services were notified patient currently on high flow [address] scan of chest this morning which showed diffuse groundglass opacities and correlation for atypical pneumonia. Patient remains on IV Kefzol and prednisone. Pulmonary and infectious disease services following. Cardiology also following On 01/28/2024 patient is alert and oriented x 3. Patient at this time is resting comfortably in bed. Patient remains on Airvo 60%. Temp 97.6, heart rate 95, respiratory rate 24, blood pressure 100/67. Pulmonary cardiology and infectious disease are following patient remains on IV Kefzol and Solu-Medrol On 01/29/2024 patient was seen and examined on the medical floor he is alert and oriented x 3 in no apparent distress,he is still maintained on high flow oxygen, he is complaining of generalized weakness and complaining of constipation he has very poor oral intake, there is no fever or chills no headache or dizziness no chest pain, he has shortness of breath with any activity no palpitation he has continuous cough no nausea or vomiting no abdominal pain no diarrhea and no urinary symptoms. On 01/30/2024 patient was seen and examined in the ICU, he is alert responsive in no apparent distress maintained on high flow oxygen via Airvo, he was transferred to ICU due to worsening shortness of breath, chest x-ray today revealed interval development of a large left-sided pneumothorax estimated at 40%, he underwent chest tube placement, on the left. His vital exam reveals a temperature of 97.5 pulse 108 respiration 33 blood pressure 133/82 pulse ox is 98% on high flow cannula with FiO2 of 50% On 01/31/2024 patient remains in the intensive care unit. Chest tube in place. Current vital signs temp 97.9, heart rate 84, respiratory rate 23, blood pressure 102/71 with a pulse ox of 97% on high flow of 40%. Patient remains sh ort of breath. Patient denies chest pain. Patient denies nausea vomiting or diarrhea. Patient denies any urinary burning or frequency On 02/01/2024 patient is alert and oriented x 3. Patient remains in the intensive care unit. Tube remains in place. Current vital signs temp 97.7, heart rate 79, respiratory rate 24, blood pressure 117/76 with a pulse ox of 100% on 6 L high flow. Patient reports some improvement with shortness of breath. Patient denies chest pain. Patient denies nausea vomiting or diarrhea. On 02/02/2024 patient was seen and examined in the ICU, he is alert and oriented x 3 in no apparent distress, he is complaining of discomfort at the chest tube site, and complaining of shortness of breath otherwise he denies any complaints there is no fever or chills no headache or dizziness, no chest pain, he has occasional cough no nausea or vomiting no abdominal pain no diarrhea no urinary symptoms. Temperature is 97.4 pulse 90 respiration 23 blood pressure 106/78 pulse ox 95% on 4 L nasal cannula, white blood count 45.7 hemoglobin 11.1 platelet count 199 BUN 45 creatinine 0.89 On 02/03/2024 patient remains in the ICU alert and oriented x 3. Patient still has chest tube complaining of some discomfort at site. Speech services at bedside assessing swallow still recommending nectar thick liquids. Current vital signs temp 97.6, heart rate 93, respiratory rate 21. Patient denies chest pain or shortness of breath. Patient denies nausea vomiting or diarrhea. P atient denies any urinary burning and frequency. On 02/04/2024 patient was seen and examined in the intensive care unit, he is alert and oriented in no apparent distress, he is complaining of pain in the chest wall site of the chest tube otherwise he denies any complaints, there is no fever or chills no headache or dizziness no chest pain no shortness of breath no cough no nausea or vomiting no abdominal pain no diarrhea no urinary symptoms, temperature is 97.5 pulse 89 respiration 16 blood pressure 108/68 pulse ox 96% on 4 L nasal cannula. His white blood count is 28.9 hemoglobin 11.0 platelet count 147 sodium 136 potassium 3.9 chloride 111 CO2 23 BUN 30 creatinine 0.94 On 02/05/2024 patient remains in the intensive care unit alert and oriented 3. Patient is down to 2 L. Chest tube remains in place.Patient's appetite remains poor patient has been started on Megace. Will consult when necessary for possible discharge planning. Patient denies chest pain or shortness breath. Patient denies nausea vomiting or diarrhea. Patient denies any urinary burning or frequency. Current vital signs temp 97.6, heart rate 80, respiratory rate 19,, Blood pressure 98/70 with pulse ox 95% on 2 L On 02/06/2024 patient was seen and examined on the telemetry floor, he is alert and oriented x 3. Current vital signs temp 97.9, heart rate 93, respiratory rate 18. blood pressure 122/60 Patient denies chest pain or shortness of breath. Patient denies nausea vomiting or diarrhea. Patient denies any urinary burning and frequency. On 03/05/2024 patient is alert and oriented x 3. Patient complaining about difficulty sleeping melatonin added. Discharge planning to [facility]. Patient remains with chest tube awaiting further recommendations from pulmonary services. Current vital signs temp 97.3, heart rate 78, respiratory rate 18, blood pressure 133/80 with a pulse ox of 93% on 4 L. Patient denies chest pain or shortness of breath. Patient denies nausea vomiting or diarrhea. Patient denies any urinary burning or frequency On 02/08/2024 patient is alert and oriented x 3. Cardiothoracic surgery was consulted due to left-sided pneumothorax with chest tube placement with continuous airleak at this time recommendations to continue wall suction and will monitor. Patient denies chest pain or shortness of breath. Patient denies nausea vomiting or diarrhea. Patient denies any urinary burning or frequency. Current temp 97.3, heart rate 68, respiratory rate 18, blood pressure 96/63 with a pulse ox of 92% on 4 L On 02/09/2024 patient is alert and oriented x 3. Patient was transferred to the intensive care unit last night due to large bloody bowel movement and hypotension. At this time patient's Eliquis has been on hold. Surgical services have been consulted. Patient denies chest pain or shortness of breath. Patient denies nausea vomiting or diarrhea. Patient denies any urinary burning or frequency. Patient may require norepinephrine for blood pressure support con tinue ICU management at this time. Critical care services following On 02/10/2024 patient is alert and oriented x 3. Per nursing staff patient has had no further episodes of large-volume bloody bowel movement. Patient still having some hypotension. Patient was evaluated by surgical services Eliquis remains on hold hemoglobin remained stable continue monitoring at this time. Patient also being followed by cardiothoracic surgery chest tube remains to suction at this time. Patient denies chest pain or shortness of breath. Patient denies any urinary burning or frequency. Patient denies nausea vomiting or diarrhea. On 02/11/2024 patient was seen and examined in the ICU, he is alert and oriented x 3 in no apparent distress, he is still complaining of left-sided chest wall pain site of his chest tube, otherwise he denies any complaints there is no fever or chills no headache or dizziness no chest pain no shortness of breath no cough no nausea or vomiting no abdominal pain no diarrhea no blood in the stools no burning with urination no frequency or urgency and no hematuria, patient has very low oral intake, he was encouraged in length in regard to increasing his diet and taking some protein supplements, albumin is low to 1.7, alternatively patient may need a Dobbhoff tube with enteral feeding. Will continue to follow closely On 02/12/2024 patient is alert and oriented x 3 remains in the ICU. Patient remains on IV Lasix patient having increased lower extremity edema. Appetite remains poor. Current vital signs temp 98.7, heart rate 89, respiratory rate 19, blood pressure 88/52 with a pulse ox of 93% on Airvo 60%. Patient denies chest pain or shortness of breath. Patient denies nausea vomiting or diarrhea. Patient denies any urinary burning or frequency On 02/13/2024 patient's alert and oriented remains in the intensive care unit. Remains on IV Lasix. Patient also remains on IV Zosyn. Multiple consults following. Patient remains on Airvo 60% and patient was started on Levophed for pressure support On 02/14/2024 patient is alert and oriented x 3. Edema has slightly improved. Patient remains on Levophed. Current vital signs temp 98.0, heart rate 94, re spiratory rate 19, blood pressure 102/73 with a pulse ox of 96% on Airvo 60%. Hemoglobin 8.9, white blood cell 28.6, creatinine 1.14 bun 33 On 02/15/2024 patient is alert and oriented x 3 patient remains in the intensive care unit Levophed getting weaned down per nursing staff chest tube has been removed. Patient remains on Airvo. Current vital signs temp 98.2, heart 81, respiratory rate 15, blood pressure 105/67 with a pulse ox of 112/64. Pulse ox 94% with an Airvo FiO2 of 50%. Patient denies chest pain or shortness of breath. Patient denies nausea vomiting or diarrhea. Patient denies any urinary burning or frequency. On 02/16/2024 patient was seen and examined in the ICU he is alert and oriented x 3 in no apparent distress there is no fever or chills no headache or dizziness no chest pain no shortness of breath, at rest patient is maintained on Airvo, high flow oxygen, no nausea or vomiting no abdominal pain no diarrhea no urinary symptoms. On 02/17/2024 patient remains in the ICU alert and oriented x 3. Patient is down to high flow and Levophed has been turned off. Per critical care will continue to monitor patient in the ICU for an additional 24 hours. Current temp 97.4, heart rate 87, respiratory rate 17, blood pressure 114/62 with a pulse ox of 95% on high flow 6 L. Patient denies chest pain or shortness of breath. Patient denies nausea vomiting or diarrhea. Patient denies any urinary burning or frequency On 02/18/2024 patient was seen and examined on the telemetry floor, he is alert and oriented x 3 in no apparent distress, he is still complaining of shortness of breath , he is maintained on oxygen 4 L via nasal cannula , he is complaining of chest wall pain site of his old chest tube , otherwise he denies any complaints at this time , there is no fever or chills, no headache or dizziness no chest pain he has occasional cough no nausea or vomiting no abdominal pain no diarrhea and no urinary symptoms, patient has been bedbound for several days, he will need to transfer to rehab when medically clear. On 02/19/2024 patient is alert and oriented x 3. At this time patient denies chest pain or shortness of breath. Patient denies nausea vomiting or diarrhea. Patient denies any urinary burning and frequency. Current vital signs temp 97.3, heart rate 77, respiratory rate 17, blood pressure 110/74 with a pulse ox of 94% on 4 L Objective - Vital Signs Vital signs: Vital Signs Temp 97.3 F L 02/19/24 07:45 Pulse 114 H 02/19/24 07:45 Resp 17 02/19/24 07:45 BP 110/74 02/19/24 07:45 Pulse Ox 92 L 02/19/24 07:45 FiO2 40 02/16/24 12:48 Intake & Output 02/18/24 02/19/24 02/19/24 18:59 06:59 18:59 Intake Total 80 1290 Output Total 1000 1300 Balance -920 -10 Weight 82.5 kg Intake: IV 80 Sodium Chloride 0.9% 1, 80 000 ml @ 10 mls/hr IV . Q24H [facility] Rx#:[id number] Oral 1290 Output: Urine 1000 1300 Other: Voiding Method External Catheter Indwelling Catheter ABP, PAP, CO, CI - Last Documented Arterial Blood Pressure 122/71 - Exam In general patient is alert and oriented x 3 in no distress HEENT head normocephalic and atraumatic Neck is supple no JVD no goiter no lymphadenopathy no carotid bruit Chest examination reveals a scattered crackles bilaterally no wheezing Cardiac exam reveals irregular heart sounds S1 and S2 with tachycardia no gallop s no murmurs Abdomen is soft nontender no organomegaly with normal bowel sounds Extremity exam reveals no edema no cyanosis or clubbing Neurological examination reveals no gross focal deficits - Labs CBC & Chem 7: 02/18/24 03:44 02/18/24 03:44 Labs: Abnormal Lab Results - Last 24 Hours (Table) 02/18/24 02/18/24 02/18/24 Range/Units 11:34 17:15 20:59 POC Glucose (mg/dL) 128 H 162 H 184 H (70-110) mg/dL 02/19/24 Range/Units 06:14 POC Glucose (mg/dL) 115 H (70-110) mg/dL Assessment and Plan Assessment: 1. Pneumonia with sepsis as evident by elevated lactic acid and leukocytosis 2. Acute kidney injury secondary to sepsis and dehydration, kidney function improved significantly since admission 3. History of atrial fibrillation maintained on Eliquis, with episodes of rapid ventricular response during this presentation 4. History of CHF 5. Acute hypoxic respiratory failure requiring high flow oxygen supplements pulmonary are following 6. Elevated liver enzymes we will hold statin at this time and recheck 7. Positive blood culture for Staphylococcus aureus, consultation for infectious disease was initiated 8. COVID-19 positive 9. Left-sided pneumothorax requiring left-sided chest tube insertion 10. GI bleed. Surgical services consulted Eliquis currently on hold 11. Hypotension secondary to above patient currently in ICU may require vasopressors for blood pressure support DVT prophylaxis Eliquis. GI prophylaxis Protonix Pulmonary services consulted, infectious disease cardiology consultation requested echocardiogram ordered Blood and sputum cultures ordered Repeat labs ordered
[2024-02-19 11:37] LABS: Glucose,Whole Blood 156 mg/dL (70-110)
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
--- NOTE | 2024-02-19 14:31 | P.PN ---
Subjective Progress Note Date: 02/19/24 CHIEF COMPLAINT: Anemia HISTORY OF PRESENT ILLNESS: The patient is a 73-year-old male with multiple me dical comorbidities including pneumonia and anemia. Patient is resting comfortably in bed. He is watching the football game. Denies any abdominal complaints. He is tolerating diet. ROS: No reports of nausea and vomiting. No bowel movements. No fevers or chills. No new chest pain. No productive sputum PHYSICAL EXAM: VITAL SIGNS: Reviewed CONSTITUTIONAL: Well developed and in no acute distress. EYES: Conjuctivae without sclera icterus. Extraocular movements grossly intact. HEAD, EARS, NOSE, THROAT: Moist buccal mucosa. Head is atraumatic, normocephalic. Hears conversational speech. No nasal drainage. RESPIRATORY: Non-labored respirations and equal bilateral excursions. CARDIOVASCULAR: Palpable 2+ radial pulses. ABDOMEN: Nontender. Nondistended. MUSCULOSKELETAL: Lower extremities with Lee wraps from foot to thigh bilaterally. SKIN: Good skin turgor. Well perfused. NEUROLOGIC: Cranial nerves II through XII grossly intact. No focal or lateralizing signs. PSYCH: Appropriate affect. Alert and oriented to person, place and time. CLINICAL LABS: Reviewed. No new labs today. ASSESSMENT: 1. Persistent leukocytosis 2. Pneumonia 3. Anemia with GI bleed, stable PLAN: 1. Continue diet. 2. May benefit from iron studies including iron infusion if not previously completed Objective - Vital Signs Vital signs: Vital Signs Temp 97.4 F L 02/19/24 13:40 Pulse 86 02/19/24 13:40 Resp 17 02/19/24 13:40 BP 99/66 02/19/24 13:40 Pulse Ox 91 L 02/19/24 13:40 FiO2 40 02/16/24 12:48 Intake & Output 02/18/24 02/19/24 02/19/24 18:59 06:59 18:59 Intake Total 80 1290 Output Total 1000 1300 Balance -920 -10 Weight 82.5 kg Intake: IV 80 Sodium Chloride 0.9% 1, 80 000 ml @ 10 mls/hr IV . Q24H [facility] Rx#:[id number] Oral 1290 Output: Urine 1000 1300 Other: Voiding Method External Catheter Indwelling Catheter ABP, PAP, CO, CI - Last Documented Arterial Blood Pressure 122/71 - Labs CBC & Chem 7: 02/18/24 03:44 02/18/24 03:44 Labs: Abnormal Lab Results - Last 24 Hours (Table) 02/18/24 02/18/24 02/19/24 Range/Units 17:15 20:59 06:14 POC Glucose (mg/dL) 162 H 184 H 115 H (70-110) mg/dL 02/19/24 Range/Units 11:35 POC Glucose (mg/dL) 156 H (70-110) mg/dL
--- NOTE | 2024-02-19 14:55 | P.PN ---
Subjective Progress Note Date: 02/19/24 Principal diagnosis: Reason for follow-up is left-sided pneumonia and MSSA bacteremia Patient is a 73-year-old with a past medical history significant for atrial fibrillation heart failure , close head injury patient presenting to the hospital for evaluation of increasing shortness of breath left lower chest pain, patient has been diagnosed with left-sided pneumonia and did have a positive blood culture with MSSA prompted this consultation.Patient did have a chest x-ray morning of 01/30/2024 with evidence of left-sided pneumothorax in this patient who status post chest tube placement on 01/30/2024 by pulmonary On today's evaluation that is 02/19/2024, Patient is afebrile patient is currently on 4 L nasal cannula oxygen denies any chest pain or any worsening cough no nausea vomiting abdominal pain or diarrhea. No CBC was done today Objective - Vital Signs Vital signs: Vital Signs Temp 97.4 F L 02/19/24 13:40 Pulse 86 02/19/24 13:40 Resp 17 02/19/24 13:40 BP 99/66 02/19/24 13:40 Pulse Ox 91 L 02/19/24 13:40 FiO2 40 02/16/24 12:48 Intake & Output 02/18/24 02/19/24 02/19/24 18:59 06:59 18:59 Intake Total 80 1290 Output Total 1000 1300 Balance -920 -10 Weight 82.5 kg Intake: IV 80 Sodium Chloride 0.9% 1, 80 000 ml @ 10 mls/hr IV . Q24H [facility] Rx#:[id number] Oral 1290 Output: Urine 1000 1300 Other: Voiding Method External Catheter Indwelling Catheter ABP, PAP, CO, CI - Last Documented Arterial Blood Pressure 122/71 - Exam GENERAL DESCRIPTION: An elderly male lying in bed in no distress RESPIRATORY SYSTEM: Unlabored breathing , close bedside left side HEART: S1 S2 regular rate and rhythm , ABDOMEN: Soft , no tenderness EXTREMITIES: No edema feet - Labs CBC & Chem 7: 02/18/24 03:44 02/18/24 03:44 Labs: Abnormal Lab Results - Last 24 Hours (Table) 02/18/24 02/18/24 02/19/24 Range/Units 17:15 20:59 06:14 POC Glucose (mg/dL) 162 H 184 H 115 H (70-110) mg/dL 02/19/24 Range/Units 11:35 POC Glucose (mg/dL) 156 H (70-110) mg/dL Assessment and Plan (1) Bacteremia due to methicillin susceptible Staphylococcus aureus (MSSA) Current Visit: Yes Status: Acute Code(s): R78.81 - BACTEREMIA; B95.61 - METHICILLIN SUSCEP STAPH INFCT CAUSING DIS CLASSD ELSWHR SNOMED Code(s): 693595190 (2) Pneumonia Current Visit: Yes Status: Acute Code(s): J18.9 - PNEUMONIA, UNSPECIFIED ORGANISM SNOMED Code(s): 604540019 (3) Sepsis Current Visit: Yes Status: Acute Code(s): A41.9 - SEPSIS, UNSPECIFIED ORGANISM SNOMED Code(s): 84619251 Plan: 1patient presented to hospital with sepsis in this patient who did have leukocytosis tachycardia meeting criteria for SIRS source is left lower lobe pneumonia 2-patient with MSSA bacteremia source likely pneumonia, blood culture repeat has been negative so far 3-patient CT of the chest did not show any empyema echocardiogram did not show any valvular abnormalities repeat blood culture negative 4patient did have complication of left-sided pneumothorax s/p is chest tube placement. Patient did have persistent leak CT surgery is closely following the patient considered to be high risk for any surgical procedure 5 the patient is afebrile the patient white count is same 28,000 as of yesterday could be related to the steroids 6patient's sputum did grew E. coli with the patient is currently being treated with Bactrim DS, we will repeat a CBC and a BMP with a.m. lab Dictation was produced using [employer] dictation software. please excuse any grammatical, word or spelling errors. Time with Patient: Less than 30
[2024-02-19 16:47] LABS: Glucose,Whole Blood 167 mg/dL (70-110)
[2024-02-19 21:11] LABS: Glucose,Whole Blood 139 mg/dL (70-110)
[2024-02-20 06:28] LABS: Glucose,Whole Blood 131 mg/dL (70-110)
[2024-02-20 09:02] LABS: BUN/Creat Ratio 31.25 Ratio (12.00-20.00); Blood Urea Nitrogen 37.5 mg/dL (9.0-27.0); Chloride 102 mmol/L (96-109); Glucose 94 mg/dL (70-110); Potassium 3.5 mmol/L (3.5-5.5); Sodium 139 mmol/L (135-145)
[2024-02-20 09:03] LABS: Calcium 7.5 mg/dL (8.7-10.3); Carbon Dioxide 26.5 mmol/L (21.6-31.8)
[2024-02-20 10:18] LABS: Basophils # (A) 0.05 X 10*3/uL (0.00-0.10); Basophils % (A) 0.2 %; Eosinophils # (A) 0 X 10*3/uL (0.04-0.35); Eosinophils % (A) 0 %; HCT 30.8 % (39.6-50.0); HGB 9.9 g/dL (13.0-17.0); Lymphocytes % (A) 3.3 %; MCH 33.3 pg (27.0-32.0); MCHC 32.1 g/dL (32.0-37.0); MCV 103.7 FL (80.0-97.0); Monocytes % (A) 3.7 %; NRBC Per 100 WBC 0.05 X 10*3/uL (0.00-0.01); Neutrophils # (A) 26.88 X 10*3/uL (1.80-7.70); Neutrophils % (A) 89.7 %; Platelet Count 237 X 10*3/uL (140-440); RBC 2.97 X 10*6/uL (4.40-5.60); RDW 26.5 % (11.5-14.5); WBC 29.95 X 10*3/uL (4.50-10.00)
--- NOTE | 2024-02-20 10:23 | P.PN ---
Subjective Progress Note Date: 02/20/24 SURGICAL PROGRESS NOTE CHIEF COMPLAINT: Shortness of breath HISTORY OF PRESENT ILLNESS: Patient is on the regular medical floor. No active signs of bleeding. hgb 9.9 stable. Iron studies pending PHYSICAL EXAM: VITAL SIGNS: Reviewed. GENERAL: in no acute distress. ABDOMEN: Soft. Nondistended. Nontender. NEUROLOGIC: Awake and alert ASSESSMENT: 1. Anemia with Acute GI bleed, HGB stable. No further active bleeding 2. Persistent leukocytosis with pneumonia, bacteremia and steroids 3. atrial fibrillation PLAN: -No surgical intervention planned -Continue to monitor for any signs or symptoms of bleeding. Continue to monitor hemoglobin -Follow-up on iron studies. Patient may need iron supplement Physician [facility] Borer note has been reviewed by physician. Signing provider agrees with the documented findings, assessment, and plan of care. Objective - Vital Signs Vital signs: Vital Signs Temp 98.0 F 02/20/24 07:16 Pulse 99 02/20/24 07:16 Resp 20 02/20/24 07:16 BP 107/77 02/20/24 07:16 Pulse Ox 93 L 02/20/24 08:46 FiO2 40 02/16/24 12:48 Intake & Output 02/19/24 02/20/24 02/20/24 18:59 06:59 18:59 Output Total 1000 1500 Balance -1000 -1500 Weight 78 kg Output: Urine 1000 1500 Other: Voiding Method Indwelling Catheter Indwelling Catheter ABP, PAP, CO, CI - Last Documented Arterial Blood Pressure 122/71 - Labs CBC & Chem 7: 02/18/24 03:44 02/20/24 02:48 Labs: Abnormal Lab Results - Last 24 Hours (Table) 02/19/24 02/19/24 02/19/24 Range/Units 11:35 16:45 21:04 BUN (9.0-27.0) mg/dL BUN/Creatinine Ratio (12.00-20.00) Ratio POC Glucose (mg/dL) 156 H 167 H 139 H (70-110) mg/dL Calcium (8.7-10.3) mg/dL C-Reactive Protein (0.00-0.80) mg/dL 02/20/24 02/20/24 Range/Units 02:48 06:25 BUN 37.5 H (9.0-27.0) mg/dL BUN/Creatinine Ratio 31.25 H (12.00-20.00) Ratio POC Glucose (mg/dL) 131 H (70-110) mg/dL Calcium 7.5 L (8.7-10.3) mg/dL C-Reactive Protein 1.00 H (0.00-0.80) mg/dL
[2024-02-20 11:24] LABS: Glucose,Whole Blood 179 mg/dL (70-110)
--- NOTE | 2024-02-20 12:33 | P.PN ---
Subjective Progress Note Date: 02/20/24 Principal diagnosis: Reason for follow-up is left-sided pneumonia and MSSA bacteremia Patient is a 73-year-old with a past medical history significant for atrial fibrillation heart failure , close head injury patient presenting to the hospital for evaluation of increasing shortness of breath left lower chest pain, patient has been diagnosed with left-sided pneumonia and did have a positive blood culture with MSSA prompted this consultation.Patient did have a chest x-ray morning of 01/30/2024 with evidence of left-sided pneumothorax in this patient who status post chest tube placement on 01/30/2024 by pulmonary On today's evaluation that is 02/20/2024, patient has been afebrile, patient is breathing comfortably and is currently on 4 L nasal cannula oxygen patient denies having any worsening cough no chest pain, patient denies nausea vomiting or diarrhea and no abdominal pain. Patient white count is up to 29.95 creatinine is 1.12 Objective - Vital Signs Vital signs: Vital Signs Temp 98.0 F 02/20/24 07:16 Pulse 99 02/20/24 07:16 Resp 20 02/20/24 07:16 BP 107/77 02/20/24 07:16 Pulse Ox 93 L 02/20/24 08:46 FiO2 40 02/16/24 12:48 Intake & Output 02/19/24 02/20/24 02/20/24 18:59 06:59 18:59 Output Total 1000 1500 Balance -1000 -1500 Weight 78 kg Output: Urine 1000 1500 Other: Voiding Method Indwelling Catheter Indwelling Catheter Indwelling Catheter ABP, PAP, CO, CI - Last Documented Arterial Blood Pressure 122/71 - Exam GENERAL DESCRIPTION: An elderly male lying in bed in no distress RESPIRATORY SYSTEM: Unlabored breathing , close bedside left side HEART: S1 S2 regular rate and rhythm , ABDOMEN: Soft , no tenderness EXTREMITIES: No edema feet - Labs CBC & Chem 7: 02/20/24 02:48 02/20/24 02:48 Labs: Abnormal Lab Results - Last 24 Hours (Table) 02/19/24 02/19/24 02/20/24 Range/Units 16:45 21:04 02:48 WBC 29.95 H (4.50-10.00) X 10*3/uL RBC 2.97 L (4.40-5.60) X 10*6/uL Hgb 9.9 L (13.0-17.0) g/dL Hct 30.8 L (39.6-50.0) % MCV 103.7 H (80.0-97.0) FL MCH 33.3 H (27.0-32.0) pg RDW 26.5 H (11.5-14.5) % Immature Gran # 0.92 H (0.00-0.04) X 10*3/uL Neutrophils # 26.88 H (1.80-7.70) X 10*3/uL Monocytes # 1.10 H (0.20-1.00) X 10*3/uL Eosinophils # 0 L (0.04-0.35) X 10*3/uL NRBC/100 WBC Diff 0.05 H (0.00-0.01) X 10*3/uL BUN (9.0-27.0) mg/dL BUN/Creatinine Ratio (12.00-20.00) Ratio POC Glucose (mg/dL) 167 H 139 H (70-110) mg/dL Calcium (8.7-10.3) mg/dL C-Reactive Protein (0.00-0.80) mg/dL 02/20/24 02/20/24 02/20/24 Range/Units 02:48 06:25 11:19 WBC (4.50-10.00) X 10*3/uL RBC (4.40-5.60) X 10*6/uL Hgb (13.0-17.0) g/dL Hct (39.6-50.0) % MCV (80.0-97.0) FL MCH (27.0-32.0) pg RDW (11.5-14.5) % Immature Gran # (0.00-0.04) X 10*3/uL Neutrophils # (1.80-7.70) X 10*3/uL Monocytes # (0.20-1.00) X 10*3/uL Eosinophils # (0.04-0.35) X 10*3/uL NRBC/100 WBC Diff (0.00-0.01) X 10*3/uL BUN 37.5 H (9.0-27.0) mg/dL BUN/Creatinine Ratio 31.25 H (12.00-20.00) Ratio POC Glucose (mg/dL) 131 H 179 H (70-110) mg/dL Calcium 7.5 L (8.7-10.3) mg/dL C-Reactive Protein 1.00 H (0.00-0.80) mg/dL Assessment and Plan (1) Bacteremia due to methicillin susceptible Staphylococcus aureus (MSSA) Current Visit: Yes Status: Acute Code(s): R78.81 - BACTEREMIA; B95.61 - METHICILLIN SUSCEP STAPH INFCT CAUSING DIS CLASSD ELSWHR SNOMED Code(s): 235597607 (2) Pneumonia Current Visit: Yes Status: Acute Code(s): J18.9 - PNEUMONIA, UNSPECIFIED ORGANISM SNOMED Code(s): 837319406 (3) Leukocytosis Current Visit: Yes Status: Acute Code(s): D72.829 - ELEVATED WHITE BLOOD CELL COUNT, UNSPECIFIED SNOMED Code(s): 875422103 Plan: 1patient presented to hospital with sepsis in this patient who did have leukocytosis tachycardia meeting criteria for SIRS source is left lower lobe pneumonia 2-patient with MSSA bacteremia source likely pneumonia, blood culture repeat has been negative so far 3-patient CT of the chest did not show any empyema echocardiogram did not show any valvular abnormalities repeat blood culture negative 4patient did have complication of left-sided pneumothorax s/p is chest tube placement. Patient did have persistent leak CT surgery is closely following the patient considered to be high risk for any surgical procedure 5 the patient is afebrile the patient did have worsening of his white count possible component of oropharyngeal diuresis will add Diflucan and switch Bactrim DS to Rocephin repeat his CBC with a.m. lab Dictation was produced using [email or web address] dictation software. please excuse any grammatical, word or spelling errors.
[2024-02-20] MEDS: FLUCONAZOLE 100 MG TAB PO SCH (14:05)
[2024-02-20 14:57] LABS: % Iron Saturation 27.59 (15.00-50.00)
[2024-02-20 16:28] LABS: Glucose,Whole Blood 106 mg/dL (70-110)
--- NOTE | 2024-02-20 17:25 | P.PN ---
Subjective Progress Note Date: 02/20/24 Rodriguez Jackson, is a 73-year-old male who presented to [facility] emergency room with a chief complaint of worsening shortness of breath, patient stated that he fell 2 weeks ago, he was complaining of left-sided rib pain especially when he takes a deep breath. He was also complaining of cough otherwise he denies any complaints. He was evaluated in the emergency room vital examination on presentation revealed a temperature of 98.8 pulse 118 respiration 18 blood pressure 130/78 pulse ox 97% on 10 L nonrebreather mask Laboratory data revealed a white blood count of 20.8 hemoglobin 12.2 platelet count 310 sodium 134 potassium 3.4 chloride 102 BUN 51 creatinine 1.77 AST 188 ALT 135 troponin 0.012 Testing in the emergency room revealed EKG done in the emergency room revealed atrial fibrillation with rapid ventricular response, chest x-ray revealed patchy left and right lower lobe infiltrates worse on the left. Patient was admitted to medical floor for further evaluation and treatment, pulmonary consultation and cardiology consultation were requested. On 01/23/2024 patient was seen and examined on the medical floor he is alert and oriented x 3 in no apparent distress he reports mild improvement in his shortness of breath, he is still complaining of cough and complaining of chest wall pain otherwise he denies any complaints there is no fever or chills no headache or dizziness no nausea or vomiting no abdominal pain no diarrhea no blood in the stools no burning with urination no frequency or urgency and no hematuria. His temperature is 98.8 pulse 108 respiration 26 blood pressure 138/92 pulse ox 91% on 11 L high flow cannula, white blood count is 26.7 hemoglobin 12.8 platelet count 281 BUN 31 creatinine 1.04 On 01/24/2024 patient is alert and oriented x 3. Patient still having some significant shortness of breath currently on 11 L nasal cannula. Cardiology, pu lmonary and infectious disease services are following. Patient remains on Cardizem drip. Patient remains on IV steroids and IV cefazolin. White blood cell 35.7, creatinine 1.18 bun 40. Current vital signs temp 97.8, heart 76, respiratory rate 26, blood pressure 112/73 with a pulse ox of 91% on 11 L On 01/25/2024 patient is alert and oriented x 3 patient reports some improvement with shortness of breath. Pulmonary cardiology and infectious disease services are following. Cardizem dean has been DC'd patient transition to p.o. Cardizekatey per cardiology continue IV antibiotics and steroids at this time.. Current vital signs temp 96.4, heart rate 74, respiratory rate 18, blood pressure 118/83 with a pulse ox of 97% on 10 L high flow. On 01/26/2024 patient was seen and examined on the medical floor he is alert and oriented x 3 in mild respiratory distress, he is maintained on high flow oxygen of 11 L/min, he is still complaining of cough and chest discomfort otherwise he denies any complaints, there is no fever or chills no headache or dizziness no chest pain no nausea or vomiting no abdominal pain no diarrhea no blood in the stools no burning with urination no frequency or urgency and no hematuria. Testing for COVID was positive yesterday. Pulmonary and infectious disease are following. On 01/27/2024 patient is alert and oriented x 3 patient continued to having increase oxygen demands. Per nursing staff pulmonary services were notified patient currently on high flow [address] scan of chest this morning which showed diffuse groundglass opacities and correlation for atypical pneumonia. Patient remains on IV Kefzol and prednisone. Pulmonary and infectious disease services following. Cardiology also following On 01/28/2024 patient is alert and oriented x 3. Patient at this time is resting comfortably in bed. Patient remains on Airvo 60%. Temp 97.6, heart rate 95, respiratory rate 24, blood pressure 100/67. Pulmonary cardiology and infectious disease are following patient remains on IV Kefzol and Solu-Medrol On 01/29/2024 patient was seen and examined on the medical floor he is alert and oriented x 3 in no apparent distress,he is still maintained on high flow oxygen, he is complaining of generalized weakness and complaining of constipation he has very poor oral intake, there is no fever or chills no headache or dizziness no chest pain, he has shortness of breath with any activity no palpitation he has continuous cough no nausea or vomiting no abdominal pain no diarrhea and no urinary symptoms. On 01/30/2024 patient was seen and examined in the ICU, he is alert responsive in no apparent distress maintained on high flow oxygen via Airvo, he was transferred to ICU due to worsening shortness of breath, chest x-ray today revealed interval development of a large left-sided pneumothorax estimated at 40%, he underwent chest tube placement, on the left. His vital exam reveals a temperature of 97.5 pulse 108 respiration 33 blood pressure 133/82 pulse ox is 98% on high flow cannula with FiO2 of 50% On 01/31/2024 patient remains in the intensive care unit. Chest tube in place. Current vital signs temp 97.9, heart rate 84, respiratory rate 23, blood pressure 102/71 with a pulse ox of 97% on high flow of 40%. Patient remains s hort of breath. Patient denies chest pain. Patient denies nausea vomiting or diarrhea. Patient denies any urinary burning or frequency On 02/01/2024 patient is alert and oriented x 3. Patient remains in the intensive care unit. Tube remains in place. Current vital signs temp 97.7, heart rate 79, respiratory rate 24, blood pressure 117/76 with a pulse ox of 100% on 6 L high flow. Patient reports some improvement with shortness of breath. Patient denies chest pain. Patient denies nausea vomiting or diarrhea. On 02/02/2024 patient was seen and examined in the ICU, he is alert and oriented x 3 in no apparent distress, he is complaining of discomfort at the chest tube site, and complaining of shortness of breath otherwise he denies any complaints there is no fever or chills no headache or dizziness, no chest pain, he has occasional cough no nausea or vomiting no abdominal pain no diarrhea no urinary symptoms. Temperature is 97.4 pulse 90 respiration 23 blood pressure 106/78 pulse ox 95% on 4 L nasal cannula, white blood count 45.7 hemoglobin 11.1 platelet count 199 BUN 45 creatinine 0.89 On 02/03/2024 patient remains in the ICU alert and oriented x 3. Patient still has chest tube complaining of some discomfort at site. Speech services at bedside assessing swallow still recommending nectar thick liquids. Current vital signs temp 97.6, heart rate 93, respiratory rate 21. Patient denies chest pain or shortness of breath. Patient denies nausea vomiting or diarrhea. Patient denies any urinary burning and frequency. On 02/04/2024 patient was seen and examined in the intensive care unit, he is alert and oriented in no apparent distress, he is complaining of pain in the chest wall site of the chest tube otherwise he denies any complaints, there is no fever or chills no headache or dizziness no chest pain no shortness of breath no cough no nausea or vomiting no abdominal pain no diarrhea no urinary symptoms, temperature is 97.5 pulse 89 respiration 16 blood pressure 108/68 pulse ox 96% on 4 L nasal cannula. His white blood count is 28.9 hemoglobin 11.0 platelet count 147 sodium 136 potassium 3.9 chloride 111 CO2 23 BUN 30 creatinine 0.94 On 02/05/2024 patient remains in the intensive care unit alert and oriented 3. Patient is down to 2 L. Chest tube remains in place.Patient's appetite remains poor patient has been started on Megace. Will consult when necessary for possible discharge planning. Patient denies chest pain or shortness breath. Patient denies nausea vomiting or diarrhea. Patient denies any urinary burning or frequency. Current vital signs temp 97.6, heart rate 80, respiratory rate 19,, Blood pressure 98/70 with pulse ox 95% on 2 L On 02/06/2024 patient was seen and examined on the telemetry floor, he is alert and oriented x 3. Current vital signs temp 97.9, heart rate 93, respiratory rate 18. blood pressure 122/60 Patient denies chest pain or shortness of breath. Patient denies nausea vomiting or diarrhea. Patient denies any urinary burning and frequency. On 03/05/2024 patient is alert and oriented x 3. Patient complaining about difficulty sleeping melatonin added. Discharge planning to [facility]. Patient remain s with chest tube awaiting further recommendations from pulmonary services. Current vital signs temp 97.3, heart rate 78, respiratory rate 18, blood pressure 133/80 with a pulse ox of 93% on 4 L. Patient denies chest pain or shortness of breath. Patient denies nausea vomiting or diarrhea. Patient denies any urinary burning or frequency On 02/08/2024 patient is alert and oriented x 3. Cardiothoracic surgery was consulted due to left-sided pneumothorax with chest tube placement with continuous airleak at this time recommendations to continue wall suction and will monitor. Patient denies chest pain or shortness of breath. Patient denies nausea vomiting or diarrhea. Patient denies any urinary burning or frequency. Current temp 97.3, heart rate 68, respiratory rate 18, blood pressure 96/63 with a pulse ox of 92% on 4 L On 02/09/2024 patient is alert and oriented x 3. Patient was transferred to the intensive care unit last night due to large bloody bowel movement and hypotension. At this time patient's Eliquis has been on hold. Surgical services have been consulted. Patient denies chest pain or shortness of breath. Patient denies nausea vomiting or diarrhea. Patient denies any urinary burning or frequency. Patient may require norepinephrine for blood pressure support co ntinue ICU management at this time. Critical care services following On 02/10/2024 patient is alert and oriented x 3. Per nursing staff patient has had no further episodes of large-volume bloody bowel movement. Patient still having some hypotension. Patient was evaluated by surgical services Eliquis remains on hold hemoglobin remained stable continue monitoring at this time. Patient also being followed by cardiothoracic surgery chest tube remains to suction at this time. Patient denies chest pain or shortness of breath. Patient denies any urinary burning or frequency. Patient denies nausea vomiting or diarrhea. On 02/11/2024 patient was seen and examined in the ICU, he is alert and oriented x 3 in no apparent distress, he is still complaining of left-sided chest wall pain site of his chest tube, otherwise he denies any complaints there is no fever or chills no headache or dizziness no chest pain no shortness of breath no cough no nausea or vomiting no abdominal pain no diarrhea no blood in the stools no burning with urination no frequency or urgency and no hematuria, patient has very low oral intake, he was encouraged in length in regard to increasing his diet and taking some protein supplements, albumin is low to 1.7, alternatively patient may need a Dobbhoff tube with enteral feeding. Will continue to follow closely On 02/12/2024 patient is alert and oriented x 3 remains in the ICU. Patient remains on IV Lasix patient having increased lower extremity edema. Appetite remains poor. Current vital signs temp 98.7, heart rate 89, respiratory rate 19, blood pressure 88/52 with a pulse ox of 93% on Airvo 60%. Patient denies chest pain or shortness of breath. Patient denies nausea vomiting or diarrhea. Patient denies any urinary burning or frequency On 02/13/2024 patient's alert and oriented remains in the intensive care unit. Remains on IV Lasix. Patient also remains on IV Zosyn. Multiple consults following. Patient remains on Airvo 60% and patient was started on Levophed for pressure support On 02/14/2024 patient is alert and oriented x 3. Edema has slightly improved. Patient remains on Levophed. Current vital signs temp 98.0, heart rate 94, r espiratory rate 19, blood pressure 102/73 with a pulse ox of 96% on Airvo 60%. Hemoglobin 8.9, white blood cell 28.6, creatinine 1.14 bun 33 On 02/15/2024 patient is alert and oriented x 3 patient remains in the intensive care unit Levophed getting weaned down per nursing staff chest tube has been removed. Patient remains on Airvo. Current vital signs temp 98.2, heart 81, respiratory rate 15, blood pressure 105/67 with a pulse ox of 112/64. Pulse ox 94% with an Airvo FiO2 of 50%. Patient denies chest pain or shortness of breath. Patient denies nausea vomiting or diarrhea. Patient denies any urinary burning or frequency. On 02/16/2024 patient was seen and examined in the ICU he is alert and oriented x 3 in no apparent distress there is no fever or chills no headache or dizziness no chest pain no shortness of breath, at rest patient is maintained on Airvo, high flow oxygen, no nausea or vomiting no abdominal pain no diarrhea no urinary symptoms. On 02/17/2024 patient remains in the ICU alert and oriented x 3. Patient is down to high flow and Levophed has been turned off. Per critical care will continue to monitor patient in the ICU for an additional 24 hours. Current temp 97.4, heart rate 87, respiratory rate 17, blood pressure 114/62 with a pulse ox of 95% on high flow 6 L. Patient denies chest pain or shortness of breath. Patient denies nausea vomiting or diarrhea. Patient denies any urinary burning or frequency On 02/18/2024 patient was seen and examined on the telemetry floor, he is alert and oriented x 3 in no apparent distress, he is still complaining of shortness of breath , he is maintained on oxygen 4 L via nasal cannula , he is complaining of chest wall pain site of his old chest tube , otherwise he denies any complaints at this time , there is no fever or chills, no headache or dizziness no chest pain he has occasional cough no nausea or vomiting no abdominal pain no diarrhea and no urinary symptoms, patient has been bedbound for several days, he will need to transfer to rehab when medically clear. On 02/19/2024 patient is alert and oriented x 3. At this time patient denies chest pain or shortness of breath. Patient denies nausea vomiting or diarrhea. Patient denies any urinary burning and frequency. Current vital signs temp 97.3 , heart rate 77, respiratory rate 17, blood pressure 110/74 with a pulse ox of 94% on 4 L On 02/20/2024 patient was seen and examined on the medical floor he is alert and oriented x 3 in no apparent distress he is maintained on oxygen 4 L via nasal cannula, he denies any chest pain or shortness of breath at rest vital exam reveals a temperature of 97.4 pulse 85 respiration 13 blood pressure 108/74 pulse ox 95% on 4 L nasal cannula, white blood count 29.95 hemoglobin 9.9 platelet count 237 BUN 37.5 creatinine 1.2, medication and labs were reviewed continue with current management will recheck in a.m. Objective - Vital Signs Vital signs: Vital Signs Temp 98.0 F 02/20/24 07:16 Pulse 99 02/20/24 07:16 Resp 20 02/20/24 07:16 BP 107/77 02/20/24 07:16 Pulse Ox 93 L 02/20/24 08:46 FiO2 40 02/16/24 12:48 Intake & Output 02/19/24 02/20/24 02/20/24 18:59 06:59 18:59 Output Total 1000 1500 Balance -1000 -1500 Weight 78 kg Output: Urine 1000 1500 Other: Voiding Method Indwelling Catheter Indwelling Catheter Indwelling Catheter ABP, PAP, CO, CI - Last Documented Arterial Blood Pressure 122/71 - Exam In general patient is alert and oriented x 3 in no distress HEENT head normocephalic and atraumatic Neck is supple no JVD no goiter no lymphadenopathy no carotid bruit Chest examination reveals a scattered crackles bilaterally no wheezing Cardiac exam reveals irregular heart sounds S1 and S2 with tachycardia no gallops no murmurs Abdomen is soft nontender no organomegaly with normal bowel sounds Extremity exam reveals no edema no cyanosis or clubbing Neurological examination reveals no gross focal deficits - Labs CBC & Chem 7: 02/20/24 02:48 02/20/24 02:48 Labs: Abnormal Lab Results - Last 24 Hours (Table) 02/19/24 02/19/24 02/20/24 Range/Units 16:45 21:04 02:48 WBC 29.95 H (4.50-10.00) X 10*3/uL RBC 2.97 L (4.40-5.60) X 10*6/uL Hgb 9.9 L (13.0-17.0) g/dL Hct 30.8 L (39.6-50.0) % MCV 103.7 H (80.0-97.0) FL MCH 33.3 H (27.0-32.0) pg RDW 26.5 H (11.5-14.5) % Immature Gran # 0.92 H (0.00-0.04) X 10*3/uL Neutrophils # 26.88 H (1.80-7.70) X 10*3/uL Monocytes # 1.10 H (0.20-1.00) X 10*3/uL Eosinophils # 0 L (0.04-0.35) X 10*3/uL NRBC/100 WBC Diff 0.05 H (0.00-0.01) X 10*3/uL BUN (9.0-27.0) mg/dL BUN/Creatinine Ratio (12.00-20.00) Ratio POC Glucose (mg/dL) 167 H 139 H (70-110) mg/dL Calcium (8.7-10.3) mg/dL C-Reactive Protein (0.00-0.80) mg/dL 02/20/24 02/20/24 02/20/24 Range/Units 02:48 06:25 11:19 WBC (4.50-10.00) X 10*3/uL RBC (4.40-5.60) X 10*6/uL Hgb (13.0-17.0) g/dL Hct (39.6-50.0) % MCV (80.0-97.0) FL MCH (27.0-32.0) pg RDW (11.5-14.5) % Immature Gran # (0.00-0.04) X 10*3/uL Neutrophils # (1.80-7.70) X 10*3/uL Monocytes # (0.20-1.00) X 10*3/uL Eosinophils # (0.04-0.35) X 10*3/uL NRBC/100 WBC Diff (0.00-0.01) X 10*3/uL BUN 37.5 H (9.0-27.0) mg/dL BUN/Creatinine Ratio 31.25 H (12.00-20.00) Ratio POC Glucose (mg/dL) 131 H 179 H (70-110) mg/dL Calcium 7.5 L (8.7-10.3) mg/dL C-Reactive Protein 1.00 H (0.00-0.80) mg/dL Assessment and Plan Assessment: 1. Pneumonia with sepsis as evident by elevated lactic acid and leukocytosis 2. Acute kidney injury secondary to sepsis and dehydration, kidney function improved significantly since admission 3. History of atrial fibrillation maintained on Eliquis, with episodes of rapid ventricular response during this presentation 4. History of CHF 5. Acute hypoxic respiratory failure requiring high flow oxygen supplements pulmonary are following 6. Elevated liver enzymes we will hold statin at this time and recheck 7. Positive blood culture for Staphylococcus aureus, consultation for infectio us disease was initiated 8. COVID-19 positive 9. Left-sided pneumothorax requiring left-sided chest tube insertion 10. GI bleed. Surgical services consulted Eliquis currently on hold 11. Hypotension secondary to above patient currently in ICU may require vasopressors for blood pressure support DVT prophylaxis Eliquis. GI prophylaxis Protonix Pulmonary services consulted, infectious disease cardiology consultation requested echocardiogram ordered Blood and sputum cultures ordered Repeat labs ordered
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
[2024-02-20 19:50] LABS: Glucose,Whole Blood 137 mg/dL (70-110)
[2024-02-21 07:11] LABS: Glucose,Whole Blood 104 mg/dL (70-110)
--- NOTE | 2024-02-21 09:13 | P.PN ---
Subjective Progress Note Date: 02/21/24 Rodriguez Jackson, is a 73-year-old male who presented to [facility] emergency room with a chief complaint of worsening shortness of breath, patient stated that he fell 2 weeks ago, he was complaining of left-sided rib pain especially when he takes a deep breath. He was also complaining of cough otherwise he denies any complaints. He was evaluated in the emergency room vital examination on presentation revealed a temperature of 98.8 pulse 118 respiration 18 blood pressure 130/78 pulse ox 97% on 10 L nonrebreather mask Laboratory data revealed a white blood count of 20.8 hemoglobin 12.2 platelet count 310 sodium 134 potassium 3.4 chloride 102 BUN 51 creatinine 1.77 AST 188 ALT 135 troponin 0.012 Testing in the emergency room revealed EKG done in the emergency room revealed atrial fibrillation with rapid ventricular response, chest x-ray revealed patchy left and right lower lobe infiltrates worse on the left. Patient was admitted to medical floor for further evaluation and treatment, pulmonary consultation and cardiology consultation were requested. On 01/23/2024 patient was seen and examined on the medical floor he is alert and oriented x 3 in no apparent distress he reports mild improvement in his shortness of breath, he is still complaining of cough and complaining of chest wall pain otherwise he denies any complaints there is no fever or chills no headache or dizziness no nausea or vomiting no abdominal pain no diarrhea no blood in the stools no burning with urination no frequency or urgency and no hematuria. His temperature is 98.8 pulse 108 respiration 26 blood pressure 138/92 pulse ox 91% on 11 L high flow cannula, white blood count is 26.7 hemoglobin 12.8 platelet count 281 BUN 31 creatinine 1.04 On 01/24/2024 patient is alert and oriented x 3. Patient still having some significant shortness of breath currently on 11 L nasal cannula. Cardiology, pu lmonary and infectious disease services are following. Patient remains on Cardizem drip. Patient remains on IV steroids and IV cefazolin. White blood cell 35.7, creatinine 1.18 bun 40. Current vital signs temp 97.8, heart 76, respiratory rate 26, blood pressure 112/73 with a pulse ox of 91% on 11 L On 01/25/2024 patient is alert and oriented x 3 patient reports some improvement with shortness of breath. Pulmonary cardiology and infectious disease services are following. Cardizem dean has been DC'd patient transition to p.o. Cardizekatey per cardiology continue IV antibiotics and steroids at this time.. Current vital signs temp 96.4, heart rate 74, respiratory rate 18, blood pressure 118/83 with a pulse ox of 97% on 10 L high flow. On 01/26/2024 patient was seen and examined on the medical floor he is alert and oriented x 3 in mild respiratory distress, he is maintained on high flow oxygen of 11 L/min, he is still complaining of cough and chest discomfort otherwise he denies any complaints, there is no fever or chills no headache or dizziness no chest pain no nausea or vomiting no abdominal pain no diarrhea no blood in the stools no burning with urination no frequency or urgency and no hematuria. Testing for COVID was positive yesterday. Pulmonary and infectious disease are following. On 01/27/2024 patient is alert and oriented x 3 patient continued to having increase oxygen demands. Per nursing staff pulmonary services were notified patient currently on high flow [address] scan of chest this morning which showed diffuse groundglass opacities and correlation for atypical pneumonia. Patient remains on IV Kefzol and prednisone. Pulmonary and infectious disease services following. Cardiology also following On 01/28/2024 patient is alert and oriented x 3. Patient at this time is resting comfortably in bed. Patient remains on Airvo 60%. Temp 97.6, heart rate 95, respiratory rate 24, blood pressure 100/67. Pulmonary cardiology and infectious disease are following patient remains on IV Kefzol and Solu-Medrol On 01/29/2024 patient was seen and examined on the medical floor he is alert and oriented x 3 in no apparent distress,he is still maintained on high flow oxygen, he is complaining of generalized weakness and complaining of constipation he has very poor oral intake, there is no fever or chills no headache or dizziness no chest pain, he has shortness of breath with any activity no palpitation he has continuous cough no nausea or vomiting no abdominal pain no diarrhea and no urinary symptoms. On 01/30/2024 patient was seen and examined in the ICU, he is alert responsive in no apparent distress maintained on high flow oxygen via Airvo, he was transferred to ICU due to worsening shortness of breath, chest x-ray today revealed interval development of a large left-sided pneumothorax estimated at 40%, he underwent chest tube placement, on the left. His vital exam reveals a temperature of 97.5 pulse 108 respiration 33 blood pressure 133/82 pulse ox is 98% on high flow cannula with FiO2 of 50% On 01/31/2024 patient remains in the intensive care unit. Chest tube in place. Current vital signs temp 97.9, heart rate 84, respiratory rate 23, blood pressure 102/71 with a pulse ox of 97% on high flow of 40%. Patient remains s hort of breath. Patient denies chest pain. Patient denies nausea vomiting or diarrhea. Patient denies any urinary burning or frequency On 02/01/2024 patient is alert and oriented x 3. Patient remains in the intensive care unit. Tube remains in place. Current vital signs temp 97.7, heart rate 79, respiratory rate 24, blood pressure 117/76 with a pulse ox of 100% on 6 L high flow. Patient reports some improvement with shortness of breath. Patient denies chest pain. Patient denies nausea vomiting or diarrhea. On 02/02/2024 patient was seen and examined in the ICU, he is alert and oriented x 3 in no apparent distress, he is complaining of discomfort at the chest tube site, and complaining of shortness of breath otherwise he denies any complaints there is no fever or chills no headache or dizziness, no chest pain, he has occasional cough no nausea or vomiting no abdominal pain no diarrhea no urinary symptoms. Temperature is 97.4 pulse 90 respiration 23 blood pressure 106/78 pulse ox 95% on 4 L nasal cannula, white blood count 45.7 hemoglobin 11.1 platelet count 199 BUN 45 creatinine 0.89 On 02/03/2024 patient remains in the ICU alert and oriented x 3. Patient still has chest tube complaining of some discomfort at site. Speech services at bedside assessing swallow still recommending nectar thick liquids. Current vital signs temp 97.6, heart rate 93, respiratory rate 21. Patient denies chest pain or shortness of breath. Patient denies nausea vomiting or diarrhea. Patient denies any urinary burning and frequency. On 02/04/2024 patient was seen and examined in the intensive care unit, he is alert and oriented in no apparent distress, he is complaining of pain in the chest wall site of the chest tube otherwise he denies any complaints, there is no fever or chills no headache or dizziness no chest pain no shortness of breath no cough no nausea or vomiting no abdominal pain no diarrhea no urinary symptoms, temperature is 97.5 pulse 89 respiration 16 blood pressure 108/68 pulse ox 96% on 4 L nasal cannula. His white blood count is 28.9 hemoglobin 11.0 platelet count 147 sodium 136 potassium 3.9 chloride 111 CO2 23 BUN 30 creatinine 0.94 On 02/05/2024 patient remains in the intensive care unit alert and oriented 3. Patient is down to 2 L. Chest tube remains in place.Patient's appetite remains poor patient has been started on Megace. Will consult when necessary for possible discharge planning. Patient denies chest pain or shortness breath. Patient denies nausea vomiting or diarrhea. Patient denies any urinary burning or frequency. Current vital signs temp 97.6, heart rate 80, respiratory rate 19,, Blood pressure 98/70 with pulse ox 95% on 2 L On 02/06/2024 patient was seen and examined on the telemetry floor, he is alert and oriented x 3. Current vital signs temp 97.9, heart rate 93, respiratory rate 18. blood pressure 122/60 Patient denies chest pain or shortness of breath. Patient denies nausea vomiting or diarrhea. Patient denies any urinary burning and frequency. On 03/05/2024 patient is alert and oriented x 3. Patient complaining about difficulty sleeping melatonin added. Discharge planning to [facility]. Patient remain s with chest tube awaiting further recommendations from pulmonary services. Current vital signs temp 97.3, heart rate 78, respiratory rate 18, blood pressure 133/80 with a pulse ox of 93% on 4 L. Patient denies chest pain or shortness of breath. Patient denies nausea vomiting or diarrhea. Patient denies any urinary burning or frequency On 02/08/2024 patient is alert and oriented x 3. Cardiothoracic surgery was consulted due to left-sided pneumothorax with chest tube placement with continuous airleak at this time recommendations to continue wall suction and will monitor. Patient denies chest pain or shortness of breath. Patient denies nausea vomiting or diarrhea. Patient denies any urinary burning or frequency. Current temp 97.3, heart rate 68, respiratory rate 18, blood pressure 96/63 with a pulse ox of 92% on 4 L On 02/09/2024 patient is alert and oriented x 3. Patient was transferred to the intensive care unit last night due to large bloody bowel movement and hypotension. At this time patient's Eliquis has been on hold. Surgical services have been consulted. Patient denies chest pain or shortness of breath. Patient denies nausea vomiting or diarrhea. Patient denies any urinary burning or frequency. Patient may require norepinephrine for blood pressure support co ntinue ICU management at this time. Critical care services following On 02/10/2024 patient is alert and oriented x 3. Per nursing staff patient has had no further episodes of large-volume bloody bowel movement. Patient still having some hypotension. Patient was evaluated by surgical services Eliquis remains on hold hemoglobin remained stable continue monitoring at this time. Patient also being followed by cardiothoracic surgery chest tube remains to suction at this time. Patient denies chest pain or shortness of breath. Patient denies any urinary burning or frequency. Patient denies nausea vomiting or diarrhea. On 02/11/2024 patient was seen and examined in the ICU, he is alert and oriented x 3 in no apparent distress, he is still complaining of left-sided chest wall pain site of his chest tube, otherwise he denies any complaints there is no fever or chills no headache or dizziness no chest pain no shortness of breath no cough no nausea or vomiting no abdominal pain no diarrhea no blood in the stools no burning with urination no frequency or urgency and no hematuria, patient has very low oral intake, he was encouraged in length in regard to increasing his diet and taking some protein supplements, albumin is low to 1.7, alternatively patient may need a Dobbhoff tube with enteral feeding. Will continue to follow closely On 02/12/2024 patient is alert and oriented x 3 remains in the ICU. Patient remains on IV Lasix patient having increased lower extremity edema. Appetite remains poor. Current vital signs temp 98.7, heart rate 89, respiratory rate 19, blood pressure 88/52 with a pulse ox of 93% on Airvo 60%. Patient denies chest pain or shortness of breath. Patient denies nausea vomiting or diarrhea. Patient denies any urinary burning or frequency On 02/13/2024 patient's alert and oriented remains in the intensive care unit. Remains on IV Lasix. Patient also remains on IV Zosyn. Multiple consults following. Patient remains on Airvo 60% and patient was started on Levophed for pressure support On 02/14/2024 patient is alert and oriented x 3. Edema has slightly improved. Patient remains on Levophed. Current vital signs temp 98.0, heart rate 94, r espiratory rate 19, blood pressure 102/73 with a pulse ox of 96% on Airvo 60%. Hemoglobin 8.9, white blood cell 28.6, creatinine 1.14 bun 33 On 02/15/2024 patient is alert and oriented x 3 patient remains in the intensive care unit Levophed getting weaned down per nursing staff chest tube has been removed. Patient remains on Airvo. Current vital signs temp 98.2, heart 81, respiratory rate 15, blood pressure 105/67 with a pulse ox of 112/64. Pulse ox 94% with an Airvo FiO2 of 50%. Patient denies chest pain or shortness of breath. Patient denies nausea vomiting or diarrhea. Patient denies any urinary burning or frequency. On 02/16/2024 patient was seen and examined in the ICU he is alert and oriented x 3 in no apparent distress there is no fever or chills no headache or dizziness no chest pain no shortness of breath, at rest patient is maintained on Airvo, high flow oxygen, no nausea or vomiting no abdominal pain no diarrhea no urinary symptoms. On 02/17/2024 patient remains in the ICU alert and oriented x 3. Patient is down to high flow and Levophed has been turned off. Per critical care will continue to monitor patient in the ICU for an additional 24 hours. Current temp 97.4, heart rate 87, respiratory rate 17, blood pressure 114/62 with a pulse ox of 95% on high flow 6 L. Patient denies chest pain or shortness of breath. Patient denies nausea vomiting or diarrhea. Patient denies any urinary burning or frequency On 02/18/2024 patient was seen and examined on the telemetry floor, he is alert and oriented x 3 in no apparent distress, he is still complaining of shortness of breath , he is maintained on oxygen 4 L via nasal cannula , he is complaining of chest wall pain site of his old chest tube , otherwise he denies any complaints at this time , there is no fever or chills, no headache or dizziness no chest pain he has occasional cough no nausea or vomiting no abdominal pain no diarrhea and no urinary symptoms, patient has been bedbound for several days, he will need to transfer to rehab when medically clear. On 02/19/2024 patient is alert and oriented x 3. At this time patient denies chest pain or shortness of breath. Patient denies nausea vomiting or diarrhea. Patient denies any urinary burning and frequency. Current vital signs temp 97.3 , heart rate 77, respiratory rate 17, blood pressure 110/74 with a pulse ox of 94% on 4 L On 02/20/2024 patient was seen and examined on the medical floor he is alert and oriented x 3 in no apparent distress he is maintained on oxygen 4 L via nasal cannula, he denies any chest pain or shortness of breath at rest vital exam reveals a temperature of 97.4 pulse 85 respiration 13 blood pressure 108/74 pulse ox 95% on 4 L nasal cannula, white blood count 29.95 hemoglobin 9.9 platelet count 237 BUN 37.5 creatinine 1.2, medication and labs were reviewed continue with current management will recheck in a.m. On 02/21/2024 patient is alert and oriented 3. Patient reports some increased shortness of breath intubated have been adjusted per ID will order chest x- ray.current vital signs temp 97.3, heart rate 97, respiratory rate 20, blood pressure 99/60 with pulse ox 92% on 4 L. Infectious disease, pulmonary and surgical services are following Objective - Vital Signs Vital signs: Vital Signs Temp 97.3 F L 02/21/24 07:41 Pulse 97 02/21/24 07:41 Resp 20 02/21/24 07:41 BP 99/68 02/21/24 07:41 Pulse Ox 92 L 02/21/24 07:41 FiO2 40 02/16/24 12:48 Intake & Output 02/20/24 02/21/24 02/21/24 18:59 06:59 18:59 Intake Total 660 Output Total 925 3700 Balance -925 -3040 Weight 78 kg 77.5 kg Intake: IV 120 Sodium Chloride 0.9% 1, 120 000 ml @ 10 mls/hr IV . Q24H [facility] Rx#:[id number] Oral 540 Output: Urine 925 3700 Other: Voiding Method Indwelling Catheter Indwelling Catheter ABP, PAP, CO, CI - Last Documented Arterial Blood Pressure 122/71 - Exam In general patient is alert and oriented x 3 in no distress HEENT head normocephalic and atraumatic Neck is supple no JVD no goiter no lymphadenopathy no carotid bruit Chest examination reveals a scattered crackles bilaterally no wheezing Cardiac exam reveals irregular heart sounds S1 and S2 with tachycardia no gallops no murmurs Abdomen is soft nontender no organomegaly with normal bowel sounds Extremity exam reveals no edema no cyanosis or clubbing Neurological examination reveals no gross focal deficits - Labs CBC & Chem 7: 02/20/24 02:48 02/20/24 02:48 Labs: Abnormal Lab Results - Last 24 Hours (Table) 02/19/24 02/20/24 02/20/24 Range/Units 03:51 02:48 11:19 WBC 29.95 H (4.50-10.00) X 10*3/uL RBC 2.97 L (4.40-5.60) X 10*6/uL Hgb 9.9 L (13.0-17.0) g/dL Hct 30.8 L (39.6-50.0) % MCV 103.7 H (80.0-97.0) FL MCH 33.3 H (27.0-32.0) pg RDW 26.5 H (11.5-14.5) % Immature Gran # 0.92 H (0.00-0.04) X 10*3/uL Neutrophils # 26.88 H (1.80-7.70) X 10*3/uL Monocytes # 1.10 H (0.20-1.00) X 10*3/uL Eosinophils # 0 L (0.04-0.35) X 10*3/uL NRBC/100 WBC Diff 0.05 H (0.00-0.01) X 10*3/uL POC Glucose (mg/dL) 179 H (70-110) mg/dL Iron 48 L (65-175) UG/DL TIBC 174 L (228-460) UG/DL Transferrin 124.0 L (204.0-354.0) mg/dL Ferritin 659.0 H (22.0-322.0) ng/mL 02/20/24 Range/Units 19:49 WBC (4.50-10.00) X 10*3/uL RBC (4.40-5.60) X 10*6/uL Hgb (13.0-17.0) g/dL Hct (39.6-50.0) % MCV (80.0-97.0) FL MCH (27.0-32.0) pg RDW (11.5-14.5) % Immature Gran # (0.00-0.04) X 10*3/uL Neutrophils # (1.80-7.70) X 10*3/uL Monocytes # (0.20-1.00) X 10*3/uL Eosinophils # (0.04-0.35) X 10*3/uL NRBC/100 WBC Diff (0.00-0.01) X 10*3/uL POC Glucose (mg/dL) 137 H (70-110) mg/dL Iron (65-175) UG/DL TIBC (228-460) UG/DL Transferrin (204.0-354.0) mg/dL Ferritin (22.0-322.0) ng/mL Assessment and Plan Assessment: 1. Pneumonia with sepsis as evident by elevated lactic acid and leukocytosis 2. Acute kidney injury secondary to sepsis and dehydration, kidney function improved significantly since admission 3. History of atrial fibrillation maintained on Eliquis, with episodes of rapid ventricular response during this presentation 4. History of CHF 5. Acute hypoxic respiratory failure requiring high flow oxygen supplements pulmonary are following 6. Elevated liver enzymes we will hold statin at this time and recheck 7. Positive blood culture for Staphylococcus aureus, consultation for infectious disease was initiated 8. COVID-19 positive 9. Left-sided pneumothorax requiring left-sided chest tube insertion 10. GI bleed. Surgical services consulted Eliquis currently on hold 11. Hypotension secondary to above patient currently in ICU may require vasopressors for blood pressure support DVT prophylaxis Eliquis. GI prophylaxis Protonix Pulmonary services consulted, infectious disease cardiology consultation requested echocardiogram ordered Blood and sputum cultures ordered Repeat labs ordered
[2024-02-21 10:52] LABS: Glucose,Whole Blood 105 mg/dL (70-110)
--- NOTE | 2024-02-21 11:19 | P.PN ---
Subjective Progress Note Date: 02/21/24 SURGICAL PROGRESS NOTE CHIEF COMPLAINT: Shortness of breath HISTORY OF PRESENT ILLNESS: Patient is sitting up in bed. No new complaints. No signs of active bleeding. Hgb stable at 9.9. PHYSICAL EXAM: VITAL SIGNS: Reviewed. GENERAL: in no acute distress. ABDOMEN: Soft. Nondistended. Nontender. NEUROLOGIC: Awake and alert ASSESSMENT: 1. Anemia with Acute GI bleed, HGB stable. No further active bleeding 2. Persistent leukocytosis 3. atrial fibrillation PLAN: -No surgical intervention planned -Continue to monitor for any signs or symptoms of bleeding. Continue to monitor hemoglobin [employer] note has been reviewed by physician. Signing provider agrees with the documented findings, assessment, and plan of care. Objective - Vital Signs Vital signs: Vital Signs Temp 97.3 F L 02/21/24 07:41 Pulse 97 02/21/24 07:41 Resp 20 02/21/24 07:41 BP 99/68 02/21/24 07:41 Pulse Ox 92 L 02/21/24 07:41 FiO2 40 02/16/24 12:48 Intake & Output 02/20/24 02/21/24 02/21/24 18:59 06:59 18:59 Intake Total 660 Output Total 925 3700 Balance -925 -3040 Weight 78 kg 77.5 kg Intake: IV 120 Sodium Chloride 0.9% 1, 120 000 ml @ 10 mls/hr IV . Q24H [facility] Rx#:[id number] Oral 540 Output: Urine 925 3700 Other: Voiding Method Indwelling Catheter Indwelling Catheter Indwelling Catheter ABP, PAP, CO, CI - Last Documented Arterial Blood Pressure 122/71 - Labs CBC & Chem 7: 02/20/24 02:48 02/20/24 02:48 Labs: Abnormal Lab Results - Last 24 Hours (Table) 02/19/24 02/20/24 02/20/24 Range/Units 03:51 11:19 19:49 POC Glucose (mg/dL) 179 H 137 H (70-110) mg/dL Iron 48 L (65-175) UG/DL TIBC 174 L (228-460) UG/DL Transferrin 124.0 L (204.0-354.0) mg/dL Ferritin 659.0 H (22.0-322.0) ng/mL
--- NOTE | 2024-02-21 11:44 | XR ---
EXAMINATION TYPE: XR chest 2V DATE OF EXAM: 02/21/2024 11:38 AM COMPARISON: 02/18/2024 CLINICAL INDICATION: Male, 73 years old with history of shortness of breath, TECHNIQUE: Frontal and lateral views of the chest are obtained. FINDINGS: Coarse infiltrates throughout both lung muniz persist greatest on the right. Correlate for atypical pneumonia. The cardiac silhouette size is within normal limits. The osseous structures ar e intact. IMPRESSION: Coarse infiltrates throughout both lung muniz persist greatest on the right. Correlate for atypical pneumonia. [facility], , 02/21/2024 11:42 AM
--- NOTE | 2024-02-21 15:18 | P.PN ---
Subjective Progress Note Date: 02/21/24 Principal diagnosis: Reason for follow-up is left-sided pneumonia and MSSA bacteremia Patient is a 73-year-old with a past medical history significant for atrial fibrillation heart failure , close head injury patient presenting to the hospital for evaluation of increasing shortness of breath left lower chest pain, patient has been diagnosed with left-sided pneumonia and did have a positive blood culture with MSSA prompted this consultation.Patient did have a chest x-ray morning of 01/30/2024 with evidence of left-sided pneumothorax in this patient who status post chest tube placement on 01/30/2024 by pulmonary On today's evaluation that is 02/21/2024, Patient is afebrile this morning patient denies having any chest pain shortness of breath he did have some cough but denies any worsening cough or sputum production no nausea vomiting no abdominal pain no diarrhea. No new labs were obtained today Objective - Vital Signs Vital signs: Vital Signs Temp 97.3 F L 02/21/24 07:41 Pulse 97 02/21/24 07:41 Resp 20 02/21/24 07:41 BP 99/68 02/21/24 07:41 Pulse Ox 92 L 02/21/24 07:41 FiO2 40 02/16/24 12:48 Intake & Output 02/20/24 02/21/24 02/21/24 18:59 06:59 18:59 Intake Total 660 Output Total 925 3700 Balance -925 -3040 Weight 78 kg 77.5 kg Intake: IV 120 Sodium Chloride 0.9% 1, 120 000 ml @ 10 mls/hr IV . Q24H [facility] Rx#:[id number] Oral 540 Output: Urine 925 3700 Other: Voiding Method Indwelling Catheter Indwelling Catheter Indwelling Catheter ABP, PAP, CO, CI - Last Documented Arterial Blood Pressure 122/71 - Exam GENERAL DESCRIPTION: An elderly male lying in bed in no distress RESPIRATORY SYSTEM: Unlabored breathing , close bedside left side HEART: S1 S2 regular rate and rhythm , ABDOMEN: Soft , no tenderness EXTREMITIES: No edema feet - Labs CBC & Chem 7: 02/20/24 02:48 02/20/24 02:48 Labs: Abnormal Lab Results - Last 24 Hours (Table) 02/19/24 02/20/24 Range/Units 03:51 19:49 POC Glucose (mg/dL) 137 H (70-110) mg/dL Iron 48 L (65-175) UG/DL TIBC 174 L (228-460) UG/DL Transferrin 124.0 L (204.0-354.0) mg/dL Ferritin 659.0 H (22.0-322.0) ng/mL Assessment and Plan (1) Bacteremia due to methicillin susceptible Staphylococcus aureus (MSSA) Current Visit: Yes Status: Acute Code(s): R78.81 - BACTEREMIA; B95.61 - METHICILLIN SUSCEP STAPH INFCT CAUSING DIS CLASSD [id number] SNOMED Code(s): 595228227 (2) Pneumonia Current Visit: Yes Status: Acute Code(s): J18.9 - PNEUMONIA, UNSPECIFIED ORGANISM SNOMED Code(s): 043651841 (3) Leukocytosis Current Visit: Yes Status: Acute Code(s): D72.829 - ELEVATED WHITE BLOOD CELL COUNT, UNSPECIFIED SNOMED Code(s): 930064996 Plan: 1patient presented to hospital with sepsis in this patient who did have l eukocytosis tachycardia meeting criteria for SIRS source is left lower lobe pneumonia 2-patient with MSSA bacteremia source likely pneumonia, blood culture repeat has been negative so far 3-patient CT of the chest did not show any empyema echocardiogram did not show any valvular abnormalities repeat blood culture negative 4patient did have complication of left-sided pneumothorax s/p is chest tube placement. Patient did have persistent leak CT surgery is closely following the patient considered to be high risk for any surgical procedure 5 the patient is afebrile the patient did have worsening of his white count possible component of oropharyngeal diuresis will add Diflucan patient antib iotic was switched to Rocephin yesterday, we we will repeat his CBC with a.m. lab Dictation was produced using [employer] dictation software. please excuse any grammatical, word or spelling errors. Time with Patient: Less than 30
[2024-02-21 16:33] LABS: Glucose,Whole Blood 114 mg/dL (70-110)
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
[2024-02-21 20:12] LABS: Glucose,Whole Blood 105 mg/dL (70-110)
[2024-02-22 06:04] LABS: Glucose,Whole Blood 94 mg/dL (70-110)
[2024-02-22 06:15] LABS: ALT 55 U/L (4-49); AST 47 U/L (17-59); African American GFR (CKD) >90 (>60 ml/min/1.73 sqM); Albumin 1.9 g/dL (3.5-5.0); Albumin/Globulin Ratio 0.7; Alkaline Phosphatase 234 U/L (38-126); Anion Gap 1 mmol/L; Blood Urea Nitrogen 39 mg/dL (9-20); Calcium 7.1 mg/dL (8.4-10.2); Carbon Dioxide 31 mmol/L (22-30); Chloride 101 mmol/L (98-107); Globulin 2.7 g/dL; Glucose 59 mg/dL (74-99); Non-African American GFR(CKD) 84 (>60 ml/min/1.73 sqM); Potassium 3.5 mmol/L (3.5-5.1); Sodium 133 mmol/L (137-145); Total Bilirubin 0.9 mg/dL (0.2-1.3); Total Protein 4.6 g/dL (6.3-8.2)
--- NOTE | 2024-02-22 10:08 | P.PN ---
Subjective Progress Note Date: 02/22/24 Rodriguez Jackson, is a 73-year-old male who presented to [facility] emergency room with a chief complaint of worsening shortness of breath, patient stated that he fell 2 weeks ago, he was complaining of left-sided rib pain especially when he takes a deep breath. He was also complaining of cough otherwise he denies any complaints. He was evaluated in the emergency room vital examination on presentation revealed a temperature of 98.8 pulse 118 respiration 18 blood pressure 130/78 pulse ox 97% on 10 L nonrebreather mask Laboratory data revealed a white blood count of 20.8 hemoglobin 12.2 platelet count 310 sodium 134 potassium 3.4 chloride 102 BUN 51 creatinine 1.77 AST 188 ALT 135 troponin 0.012 Testing in the emergency room revealed EKG done in the emergency room revealed atrial fibrillation with rapid ventricular response, chest x-ray revealed patchy left and right lower lobe infiltrates worse on the left. Patient was admitted to medical floor for further evaluation and treatment, pulmonary consultation and cardiology consultation were requested. On 01/23/2024 patient was seen and examined on the medical floor he is alert and oriented x 3 in no apparent distress he reports mild improvement in his shortness of breath, he is still complaining of cough and complaining of chest wall pain otherwise he denies any complaints there is no fever or chills no headache or dizziness no nausea or vomiting no abdominal pain no diarrhea no blood in the stools no burning with urination no frequency or urgency and no hematuria. His temperature is 98.8 pulse 108 respiration 26 blood pressure 138/92 pulse ox 91% on 11 L high flow cannula, white blood count is 26.7 hemoglobin 12.8 platelet count 281 BUN 31 creatinine 1.04 On 01/24/2024 patient is alert and oriented x 3. Patient still having some significant shortness of breath currently on 11 L nasal cannula. Cardiology, pu lmonary and infectious disease services are following. Patient remains on Cardizem drip. Patient remains on IV steroids and IV cefazolin. White blood cell 35.7, creatinine 1.18 bun 40. Current vital signs temp 97.8, heart 76, respiratory rate 26, blood pressure 112/73 with a pulse ox of 91% on 11 L On 01/25/2024 patient is alert and oriented x 3 patient reports some improvement with shortness of breath. Pulmonary cardiology and infectious disease services are following. Cardizem dean has been DC'd patient transition to p.o. Cardizekatey per cardiology continue IV antibiotics and steroids at this time.. Current vital signs temp 96.4, heart rate 74, respiratory rate 18, blood pressure 118/83 with a pulse ox of 97% on 10 L high flow. On 01/26/2024 patient was seen and examined on the medical floor he is alert and oriented x 3 in mild respiratory distress, he is maintained on high flow oxygen of 11 L/min, he is still complaining of cough and chest discomfort otherwise he denies any complaints, there is no fever or chills no headache or dizziness no chest pain no nausea or vomiting no abdominal pain no diarrhea no blood in the stools no burning with urination no frequency or urgency and no hematuria. Testing for COVID was positive yesterday. Pulmonary and infectious disease are following. On 01/27/2024 patient is alert and oriented x 3 patient continued to having increase oxygen demands. Per nursing staff pulmonary services were notified patient currently on high flow [address] scan of chest this morning which showed diffuse groundglass opacities and correlation for atypical pneumonia. Patient remains on IV Kefzol and prednisone. Pulmonary and infectious disease services following. Cardiology also following On 01/28/2024 patient is alert and oriented x 3. Patient at this time is resting comfortably in bed. Patient remains on Airvo 60%. Temp 97.6, heart rate 95, respiratory rate 24, blood pressure 100/67. Pulmonary cardiology and infectious disease are following patient remains on IV Kefzol and Solu-Medrol On 01/29/2024 patient was seen and examined on the medical floor he is alert and oriented x 3 in no apparent distress,he is still maintained on high flow oxygen, he is complaining of generalized weakness and complaining of constipation he has very poor oral intake, there is no fever or chills no headache or dizziness no chest pain, he has shortness of breath with any activity no palpitation he has continuous cough no nausea or vomiting no abdominal pain no diarrhea and no urinary symptoms. On 01/30/2024 patient was seen and examined in the ICU, he is alert responsive in no apparent distress maintained on high flow oxygen via Airvo, he was transferred to ICU due to worsening shortness of breath, chest x-ray today revealed interval development of a large left-sided pneumothorax estimated at 40%, he underwent chest tube placement, on the left. His vital exam reveals a temperature of 97.5 pulse 108 respiration 33 blood pressure 133/82 pulse ox is 98% on high flow cannula with FiO2 of 50% On 01/31/2024 patient remains in the intensive care unit. Chest tube in place. Current vital signs temp 97.9, heart rate 84, respiratory rate 23, blood pressure 102/71 with a pulse ox of 97% on high flow of 40%. Patient remains s hort of breath. Patient denies chest pain. Patient denies nausea vomiting or diarrhea. Patient denies any urinary burning or frequency On 02/01/2024 patient is alert and oriented x 3. Patient remains in the intensive care unit. Tube remains in place. Current vital signs temp 97.7, heart rate 79, respiratory rate 24, blood pressure 117/76 with a pulse ox of 100% on 6 L high flow. Patient reports some improvement with shortness of breath. Patient denies chest pain. Patient denies nausea vomiting or diarrhea. On 02/02/2024 patient was seen and examined in the ICU, he is alert and oriented x 3 in no apparent distress, he is complaining of discomfort at the chest tube site, and complaining of shortness of breath otherwise he denies any complaints there is no fever or chills no headache or dizziness, no chest pain, he has occasional cough no nausea or vomiting no abdominal pain no diarrhea no urinary symptoms. Temperature is 97.4 pulse 90 respiration 23 blood pressure 106/78 pulse ox 95% on 4 L nasal cannula, white blood count 45.7 hemoglobin 11.1 platelet count 199 BUN 45 creatinine 0.89 On 02/03/2024 patient remains in the ICU alert and oriented x 3. Patient still has chest tube complaining of some discomfort at site. Speech services at bedside assessing swallow still recommending nectar thick liquids. Current vital signs temp 97.6, heart rate 93, respiratory rate 21. Patient denies chest pain or shortness of breath. Patient denies nausea vomiting or diarrhea. Patient denies any urinary burning and frequency. On 02/04/2024 patient was seen and examined in the intensive care unit, he is alert and oriented in no apparent distress, he is complaining of pain in the chest wall site of the chest tube otherwise he denies any complaints, there is no fever or chills no headache or dizziness no chest pain no shortness of breath no cough no nausea or vomiting no abdominal pain no diarrhea no urinary symptoms, temperature is 97.5 pulse 89 respiration 16 blood pressure 108/68 pulse ox 96% on 4 L nasal cannula. His white blood count is 28.9 hemoglobin 11.0 platelet count 147 sodium 136 potassium 3.9 chloride 111 CO2 23 BUN 30 creatinine 0.94 On 02/05/2024 patient remains in the intensive care unit alert and oriented 3. Patient is down to 2 L. Chest tube remains in place.Patient's appetite remains poor patient has been started on Megace. Will consult when necessary for possible discharge planning. Patient denies chest pain or shortness breath. Patient denies nausea vomiting or diarrhea. Patient denies any urinary burning or frequency. Current vital signs temp 97.6, heart rate 80, respiratory rate 19,, Blood pressure 98/70 with pulse ox 95% on 2 L On 02/06/2024 patient was seen and examined on the telemetry floor, he is alert and oriented x 3. Current vital signs temp 97.9, heart rate 93, respiratory rate 18. blood pressure 122/60 Patient denies chest pain or shortness of breath. Patient denies nausea vomiting or diarrhea. Patient denies any urinary burning and frequency. On 03/05/2024 patient is alert and oriented x 3. Patient complaining about difficulty sleeping melatonin added. Discharge planning to [facility]. Patient remain s with chest tube awaiting further recommendations from pulmonary services. Current vital signs temp 97.3, heart rate 78, respiratory rate 18, blood pressure 133/80 with a pulse ox of 93% on 4 L. Patient denies chest pain or shortness of breath. Patient denies nausea vomiting or diarrhea. Patient denies any urinary burning or frequency On 02/08/2024 patient is alert and oriented x 3. Cardiothoracic surgery was consulted due to left-sided pneumothorax with chest tube placement with continuous airleak at this time recommendations to continue wall suction and will monitor. Patient denies chest pain or shortness of breath. Patient denies nausea vomiting or diarrhea. Patient denies any urinary burning or frequency. Current temp 97.3, heart rate 68, respiratory rate 18, blood pressure 96/63 with a pulse ox of 92% on 4 L On 02/09/2024 patient is alert and oriented x 3. Patient was transferred to the intensive care unit last night due to large bloody bowel movement and hypotension. At this time patient's Eliquis has been on hold. Surgical services have been consulted. Patient denies chest pain or shortness of breath. Patient denies nausea vomiting or diarrhea. Patient denies any urinary burning or frequency. Patient may require norepinephrine for blood pressure support co ntinue ICU management at this time. Critical care services following On 02/10/2024 patient is alert and oriented x 3. Per nursing staff patient has had no further episodes of large-volume bloody bowel movement. Patient still having some hypotension. Patient was evaluated by surgical services Eliquis remains on hold hemoglobin remained stable continue monitoring at this time. Patient also being followed by cardiothoracic surgery chest tube remains to suction at this time. Patient denies chest pain or shortness of breath. Patient denies any urinary burning or frequency. Patient denies nausea vomiting or diarrhea. On 02/11/2024 patient was seen and examined in the ICU, he is alert and oriented x 3 in no apparent distress, he is still complaining of left-sided chest wall pain site of his chest tube, otherwise he denies any complaints there is no fever or chills no headache or dizziness no chest pain no shortness of breath no cough no nausea or vomiting no abdominal pain no diarrhea no blood in the stools no burning with urination no frequency or urgency and no hematuria, patient has very low oral intake, he was encouraged in length in regard to increasing his diet and taking some protein supplements, albumin is low to 1.7, alternatively patient may need a Dobbhoff tube with enteral feeding. Will continue to follow closely On 02/12/2024 patient is alert and oriented x 3 remains in the ICU. Patient remains on IV Lasix patient having increased lower extremity edema. Appetite remains poor. Current vital signs temp 98.7, heart rate 89, respiratory rate 19, blood pressure 88/52 with a pulse ox of 93% on Airvo 60%. Patient denies chest pain or shortness of breath. Patient denies nausea vomiting or diarrhea. Patient denies any urinary burning or frequency On 02/13/2024 patient's alert and oriented remains in the intensive care unit. Remains on IV Lasix. Patient also remains on IV Zosyn. Multiple consults following. Patient remains on Airvo 60% and patient was started on Levophed for pressure support On 02/14/2024 patient is alert and oriented x 3. Edema has slightly improved. Patient remains on Levophed. Current vital signs temp 98.0, heart rate 94, r espiratory rate 19, blood pressure 102/73 with a pulse ox of 96% on Airvo 60%. Hemoglobin 8.9, white blood cell 28.6, creatinine 1.14 bun 33 On 02/15/2024 patient is alert and oriented x 3 patient remains in the intensive care unit Levophed getting weaned down per nursing staff chest tube has been removed. Patient remains on Airvo. Current vital signs temp 98.2, heart 81, respiratory rate 15, blood pressure 105/67 with a pulse ox of 112/64. Pulse ox 94% with an Airvo FiO2 of 50%. Patient denies chest pain or shortness of breath. Patient denies nausea vomiting or diarrhea. Patient denies any urinary burning or frequency. On 02/16/2024 patient was seen and examined in the ICU he is alert and oriented x 3 in no apparent distress there is no fever or chills no headache or dizziness no chest pain no shortness of breath, at rest patient is maintained on Airvo, high flow oxygen, no nausea or vomiting no abdominal pain no diarrhea no urinary symptoms. On 02/17/2024 patient remains in the ICU alert and oriented x 3. Patient is down to high flow and Levophed has been turned off. Per critical care will continue to monitor patient in the ICU for an additional 24 hours. Current temp 97.4, heart rate 87, respiratory rate 17, blood pressure 114/62 with a pulse ox of 95% on high flow 6 L. Patient denies chest pain or shortness of breath. Patient denies nausea vomiting or diarrhea. Patient denies any urinary burning or frequency On 02/18/2024 patient was seen and examined on the telemetry floor, he is alert and oriented x 3 in no apparent distress, he is still complaining of shortness of breath , he is maintained on oxygen 4 L via nasal cannula , he is complaining of chest wall pain site of his old chest tube , otherwise he denies any complaints at this time , there is no fever or chills, no headache or dizziness no chest pain he has occasional cough no nausea or vomiting no abdominal pain no diarrhea and no urinary symptoms, patient has been bedbound for several days, he will need to transfer to rehab when medically clear. On 02/19/2024 patient is alert and oriented x 3. At this time patient denies chest pain or shortness of breath. Patient denies nausea vomiting or diarrhea. Patient denies any urinary burning and frequency. Current vital signs temp 97.3 , heart rate 77, respiratory rate 17, blood pressure 110/74 with a pulse ox of 94% on 4 L On 02/20/2024 patient was seen and examined on the medical floor he is alert and oriented x 3 in no apparent distress he is maintained on oxygen 4 L via nasal cannula, he denies any chest pain or shortness of breath at rest vital exam reveals a temperature of 97.4 pulse 85 respiration 13 blood pressure 108/74 pulse ox 95% on 4 L nasal cannula, white blood count 29.95 hemoglobin 9.9 platelet count 237 BUN 37.5 creatinine 1.2, medication and labs were reviewed continue with current management will recheck in a.m. On 02/21/2024 patient is alert and oriented 3. Patient reports some increased shortness of breath intubated have been adjusted per ID will order chest x- ray.current vital signs temp 97.3, heart rate 97, respiratory rate 20, blood pressure 99/60 with pulse ox 92% on 4 L. Infectious disease, pulmonary and surgical services are following On 02/22/2024 patient is alert and oriented x 3. Patient reports some improvement. Chest x-ray showing interstitial infiltrate. Pulmonary and infec tious disease services are following. Current vital signs temp 97.6, heart rate 89, respiratory rate 20, blood pressure 97/66 with a pulse ox of 95% on 4 L patient denies chest pain. Patient denies nausea vomiting or diarrhea. Patient denies any urinary burning or frequency Objective - Vital Signs Vital signs: Vital Signs Temp 97.6 F 02/22/24 07:11 Pulse 115 H 02/22/24 07:11 Resp 20 02/22/24 07:11 BP 97/66 02/22/24 07:11 Pulse Ox 95 02/22/24 07:11 FiO2 40 02/16/24 12:48 Intake & Output 02/21/24 02/22/24 02/22/24 18:59 06:59 18:59 Intake Total 170 Output Total 1400 1450 Balance -1230 -1450 Weight 60.5 kg Intake: IV 120 Sodium Chloride 0.9% 1, 120 000 ml @ 10 mls/hr IV . Q24H [facility]ENT Rx#:[id number] Intake, IV Titration 50 Amount cefTRIAXone 2 gm In 50 Sodium Chloride 0.9% 50 ml @ 100 mls/hr IVPB Q24HR [facility] Rx#:[id number] Output: Urine 1400 1450 Other: Voiding Method Indwelling Catheter Indwelling Catheter ABP, PAP, CO, CI - Last Documented Arterial Blood Pressure 122/71 - Exam In general patient is alert and oriented x 3 in no distress HEENT head normocephalic and atraumatic Neck is supple no JVD no goiter no lymphadenopathy no carotid bruit Chest examination reveals a scattered crackles bilaterally no wheezing Cardiac exam reveals irregular heart sounds S1 and S2 with tachycardia no gallops no murmurs Abdomen is soft nontender no organomegaly with normal bowel sounds Extremity exam reveals no edema no cyanosis or clubbing Neurological examination reveals no gross focal deficits - Labs CBC & Chem 7: 02/20/24 02:48 02/22/24 03:20 Labs: Abnormal Lab Results - Last 24 Hours (Table) 02/21/24 02/22/24 Range/Units 16:31 03:20 Sodium 133 L (137-145) mmol/L Carbon Dioxide 31 H (22-30) mmol/L BUN 39 H (9-20) mg/dL Glucose 59 L (74-99) mg/dL POC Glucose (mg/dL) 114 H (70-110) mg/dL Calcium 7.1 L (8.4-10.2) mg/dL ALT 55 H (4-49) U/L Alkaline Phosphatase 234 H (38-126) U/L Total Protein 4.6 L (6.3-8.2) g/dL Albumin 1.9 L (3.5-5.0) g/dL Assessment and Plan Assessment: 1. Pneumonia with sepsis as evident by elevated lactic acid and leukocytosis 2. Acute kidney injury secondary to sepsis and dehydration, kidney function improved significantly since admission 3. History of atrial fibrillation maintained on Eliquis, with episodes of rapid ventricular response during this presentation 4. History of CHF 5. Acute hypoxic respiratory failure requiring high flow oxygen supplements pulmonary are following 6. Elevated liver enzymes we will hold statin at this time and recheck 7. Positive blood culture for Staphylococcus aureus, consultation for infectiou s disease was initiated 8. COVID-19 positive 9. Left-sided pneumothorax requiring left-sided chest tube insertion 10. GI bleed. Surgical services consulted Eliquis currently on hold 11. Hypotension secondary to above patient currently in ICU may require vasopressors for blood pressure support DVT prophylaxis Eliquis. GI prophylaxis Protonix Pulmonary services consulted, infectious disease cardiology consultation requested echocardiogram ordered Blood and sputum cultures ordered Repeat labs ordered
[2024-02-22 11:04] LABS: Glucose,Whole Blood 94 mg/dL (70-110)
[2024-02-22 11:13] LABS: Basophils # (A) 0.05 X 10*3/uL (0.00-0.10); Basophils % (A) 0.2 %; Eosinophils # (A) 0 X 10*3/uL (0.04-0.35); Eosinophils % (A) 0 %; HCT 31.4 % (39.6-50.0); HGB 9.7 g/dL (13.0-17.0); Lymphocytes % (A) 3.9 %; MCH 32.7 pg (27.0-32.0); MCHC 30.9 g/dL (32.0-37.0); MCV 105.7 FL (80.0-97.0); Macrocytosis (M) 2+ (None Seen); Mean Platelet Volume 14.9 FL (9.5-12.2); Monocytes # (A) 1.25 X 10*3/uL (0.20-1.00); Monocytes % (A) 6.1 %; NRBC Per 100 WBC 0.04 X 10*3/uL (0.00-0.01); Neutrophils # (A) 17.82 X 10*3/uL (1.80-7.70); Neutrophils % (A) 86.8 %; Platelet Count 241 X 10*3/uL (140-440); RBC 2.97 X 10*6/uL (4.40-5.60); RDW 25.1 % (11.5-14.5); Target Cells 2+ (None Seen); WBC 20.53 X 10*3/uL (4.50-10.00)
--- NOTE | 2024-02-22 13:24 | P.PN ---
Subjective Progress Note Date: 02/22/24 SURGICAL PROGRESS NOTE CHIEF COMPLAINT: Shortness of breath HISTORY OF PRESENT ILLNESS: Patient is sitting up in bed. No new complaints. No signs of active bleeding. Hgb stable at 9.7. PHYSICAL EXAM: VITAL SIGNS: Reviewed. GENERAL: in no acute distress. ABDOMEN: Soft. Nondistended. Nontender. NEUROLOGIC: Awake and alert ASSESSMENT: 1. Anemia with Acute GI bleed, HGB stable. No further active bleeding 2. Persistent leukocytosis 3. atrial fibrillation PLAN: -No surgical intervention planned -Continue supportive care Physician Ethnographic Materials Conservator note has been reviewed by physician. Signing provider agrees with the documented findings, assessment, and plan of care. Objective - Vital Signs Vital signs: Vital Signs Temp 97.6 F 02/22/24 07:11 Pulse 115 H 02/22/24 07:11 Resp 20 02/22/24 07:11 BP 97/66 02/22/24 07:11 Pulse Ox 95 02/22/24 07:11 FiO2 40 02/16/24 12:48 Intake & Output 02/21/24 02/22/24 02/22/24 18:59 06:59 18:59 Intake Total 170 Output Total 1400 1450 Balance -1230 -1450 Weight 60.5 kg Intake: IV 120 Sodium Chloride 0.9% 1, 120 000 ml @ 10 mls/hr IV . Q24H [facility] Rx#:[id number] Intake, IV Titration 50 Amount cefTRIAXone 2 gm In 50 Sodium Chloride 0.9% 50 ml @ 100 mls/hr IVPB Q24HR [facility] Rx#:[id number] Output: Urine 1400 1450 Other: Voiding Method Indwelling Catheter Indwelling Catheter ABP, PAP, CO, CI - Last Documented Arterial Blood Pressure 122/71 - Labs CBC & Chem 7: 02/22/24 06:50 02/22/24 03:20 Labs: Abnormal Lab Results - Last 24 Hours (Table) 02/21/24 02/22/24 02/22/24 Range/Units 16:31 03:20 06:50 WBC 20.53 H (4.50-10.00) X 10*3/uL RBC 2.97 L (4.40-5.60) X 10*6/uL Hgb 9.7 L (13.0-17.0) g/dL Hct 31.4 L (39.6-50.0) % MCV 105.7 H (80.0-97.0) FL MCH 32.7 H (27.0-32.0) pg MCHC 30.9 L (32.0-37.0) g/dL RDW 25.1 H (11.5-14.5) % MPV 14.9 H (9.5-12.2) FL Immature Gran # 0.61 H (0.00-0.04) X 10*3/uL Neutrophils # 17.82 H (1.80-7.70) X 10*3/uL Lymphocytes # 0.80 L (0.90-5.00) X 10*3/uL Monocytes # 1.25 H (0.20-1.00) X 10*3/uL Eosinophils # 0 L (0.04-0.35) X 10*3/uL NRBC/100 WBC Diff 0.04 H (0.00-0.01) X 10*3/uL Macrocytosis (manual) 2+ A (None Seen) Target Cells 2+ A (None Seen) Sodium 133 L (137-145) mmol/L Carbon Dioxide 31 H (22-30) mmol/L BUN 39 H (9-20) mg/dL Glucose 59 L (74-99) mg/dL POC Glucose (mg/dL) 114 H (70-110) mg/dL Calcium 7.1 L (8.4-10.2) mg/dL ALT 55 H (4-49) U/L Alkaline Phosphatase 234 H (38-126) U/L Total Protein 4.6 L (6.3-8.2) g/dL Albumin 1.9 L (3.5-5.0) g/dL
[2024-02-22 17:15] LABS: Glucose,Whole Blood 91 mg/dL (70-110)
[2024-02-22] MEDS: HYDROcodone/APAP 7.5-325MG 1 EACH TAB PO PRN (19:58)
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
[2024-02-22 21:04] LABS: Glucose,Whole Blood 114 mg/dL (70-110)
[2024-02-23 06:25] LABS: Glucose,Whole Blood 89 mg/dL (70-110)
--- NOTE | 2024-02-23 08:02 | P.PN ---
Subjective Progress Note Date: 02/22/24 Principal diagnosis: Reason for follow-up is left-sided pneumonia and MSSA bacteremia Patient is a 73-year-old with a past medical history significant for atrial fibrillation heart failure , close head injury patient presenting to the hospital for evaluation of increasing shortness of breath left lower chest pain, patient has been diagnosed with left-sided pneumonia and did have a positive blood culture with MSSA prompted this consultation.Patient did have a chest x-ray morning of 01/30/2024 with evidence of left-sided pneumothorax in this patient who status post chest tube placement on 01/30/2024 by pulmonary On today's evaluation that is 02/22/2024,the patient denies any fever or any chills, patient is breathing comfortably on 4 L nasal cannula oxygen the patient denies chest pain, worsening shortness of breath and no worsening cough, patient denies abdominal pain, no nausea vomiting or diarrhea. Patient white count is down to 20.53 creatinine 0.90 Objective - Vital Signs Vital signs: Vital Signs Temp 97.6 F 02/22/24 07:11 Pulse 115 H 02/22/24 07:11 Resp 20 02/22/24 07:11 BP 97/66 02/22/24 07:11 Pulse Ox 95 02/22/24 07:11 FiO2 40 02/16/24 12:48 Intake & Output 02/21/24 02/22/24 02/22/24 18:59 06:59 18:59 Intake Total 170 Output Total 1400 1450 Balance -1230 -1450 Weight 60.5 kg Intake: IV 120 Sodium Chloride 0.9% 1, 120 000 ml @ 10 mls/hr IV . Q24H [facility] Rx#:[id number] Intake, IV Titration 50 Amount cefTRIAXone 2 gm In 50 Sodium Chloride 0.9% 50 ml @ 100 mls/hr IVPB Q24HR [facility] Rx#:[id number] Output: Urine 1400 1450 Other: Voiding Method Indwelling Catheter Indwelling Catheter ABP, PAP, CO, CI - Last Documented Arterial Blood Pressure 122/71 - Exam GENERAL DESCRIPTION: An elderly male lying in bed in no distress RESPIRATORY SYSTEM: Unlabored breathing , close bedside left side HEART: S1 S2 regular rate and rhythm , ABDOMEN: Soft , no tenderness EXTREMITIES: No edema feet - Labs CBC & Chem 7: 02/22/24 06:50 02/22/24 03:20 Labs: Abnormal Lab Results - Last 24 Hours (Table) 02/21/24 02/22/24 02/22/24 Range/Units 16:31 03:20 06:50 WBC 20.53 H (4.50-10.00) X 10*3/uL RBC 2.97 L (4.40-5.60) X 10*6/uL Hgb 9.7 L (13.0-17.0) g/dL Hct 31.4 L (39.6-50.0) % MCV 105.7 H (80.0-97.0) FL MCH 32.7 H (27.0-32.0) pg MCHC 30.9 L (32.0-37.0) g/dL RDW 25.1 H (11.5-14.5) % MPV 14.9 H (9.5-12.2) FL Immature Gran # 0.61 H (0.00-0.04) X 10*3/uL Neutrophils # 17.82 H (1.80-7.70) X 10*3/uL Lymphocytes # 0.80 L (0.90-5.00) X 10*3/uL Monocytes # 1.25 H (0.20-1.00) X 10*3/uL Eosinophils # 0 L (0.04-0.35) X 10*3/uL NRBC/100 WBC Diff 0.04 H (0.00-0.01) X 10*3/uL Macrocytosis (manual) 2+ A (None Seen) Target Cells 2+ A (None Seen) Sodium 133 L (137-145) mmol/L Carbon Dioxide 31 H (22-30) mmol/L BUN 39 H (9-20) mg/dL Glucose 59 L (74-99) mg/dL POC Glucose (mg/dL) 114 H (70-110) mg/dL Calcium 7.1 L (8.4-10.2) mg/dL ALT 55 H (4-49) U/L Alkaline Phosphatase 234 H (38-126) U/L Total Protein 4.6 L (6.3-8.2) g/dL Albumin 1.9 L (3.5-5.0) g/dL Assessment and Plan (1) Bacteremia due to methicillin susceptible Staphylococcus aureus (MSSA) Current Visit: Yes Status: Acute Code(s): R78.81 - BACTEREMIA; B95.61 - METHICILLIN SUSCEP STAPH INFCT CAUSING DIS CLASSD ELSWHR SNOMED Code(s): 316665006 (2) Pneumonia Current Visit: Yes Status: Acute Code(s): J18.9 - PNEUMONIA, UNSPECIFIED ORGANISM SNOMED Code(s): 520274663 (3) Leukocytosis Current Visit: Yes Status: Acute Code(s): D72.829 - ELEVATED WHITE BLOOD CELL COUNT, UNSPECIFIED SNOMED Code(s): 796225301 Plan: 1patient presented to hospital with sepsis in this patient who did have leukocytosis tachycardia meeting criteria for SIRS source is left lower lobe pneumonia 2-patient with MSSA bacteremia source likely pneumonia, blood culture repeat has been negative so far 3-patient CT of the chest did not show any empyema echocardiogram did not show any valvular abnormalities repeat blood culture negative 4patient did have complication of left-sided pneumothorax s/p is chest tube placement. Patient did have persistent leak CT surgery is closely following the patient considered to be high risk for any surgical procedure 5 the patient is afebrile the patient did have worsening of his white count possible component of oropharyngeal candidiasis 6-patient did have improvement his white count is down to 20,000 with adjustment of his medication to Rocephin and Diflucan to continue and monitor clinical course closely Dictation was produced using [employer] dictation software. please excuse any grammatical, word or spelling errors. Time with Patient: Less than 30
[2024-02-23 08:47] LABS: ALT 56 U/L (10-49); AST 48 U/L (14-35); Albumin 2.1 g/dL (3.8-4.9); Albumin/Globulin Ratio 0.95 Ratio (1.60-3.17); Alkaline Phosphatase 242 U/L (41-126); BUN/Creat Ratio 34.78 Ratio (12.00-20.00); Blood Urea Nitrogen 31.3 mg/dL (9.0-27.0); Calcium 7.3 mg/dL (8.7-10.3); Carbon Dioxide 30.4 mmol/L (21.6-31.8); Chloride 99 mmol/L (96-109); Globulin 2.2 g/dL (1.6-3.3); Glucose 76 mg/dL (70-110); Potassium 3.5 mmol/L (3.5-5.5); Sodium 139 mmol/L (135-145); Total Bilirubin 0.5 mg/dL (0.3-1.2); Total Protein 4.3 g/dL (6.2-8.2)
[2024-02-23 09:03] LABS: Basophils # (A) 0.04 X 10*3/uL (0.00-0.10); Basophils % (A) 0.2 %; Eosinophils # (A) 0.01 X 10*3/uL (0.04-0.35); Eosinophils % (A) 0 %; HCT 29.3 % (39.6-50.0); HGB 9.6 g/dL (13.0-17.0); Lymphocytes # (A) 0.85 X 10*3/uL (0.90-5.00); Lymphocytes % (A) 3.9 %; MCH 34.4 pg (27.0-32.0); MCHC 32.8 g/dL (32.0-37.0); Mean Platelet Volume 14.5 FL (9.5-12.2); Monocytes # (A) 1.49 X 10*3/uL (0.20-1.00); Monocytes % (A) 6.8 %; NRBC Per 100 WBC 0.03 X 10*3/uL (0.00-0.01); Neutrophils # (A) 18.82 X 10*3/uL (1.80-7.70); Neutrophils % (A) 86.3 %; Platelet Count 229 X 10*3/uL (140-440); RBC 2.79 X 10*6/uL (4.40-5.60); RDW 24.6 % (11.5-14.5); WBC 21.82 X 10*3/uL (4.50-10.00)
--- NOTE | 2024-02-23 10:21 | XR ---
EXAMINATION TYPE: XR chest 1V DATE OF EXAM: 02/23/2024 COMPARISON: 02/21/2024 CLINICAL INDICATION: Male, 73 years old with history of FU pneumonia; TECHNIQUE: Single frontal view of the chest is obtained. FINDINGS: Diffuse infiltrates persist bilaterally likely superimposed upon a degree of fibrosis. Car diomediastinal silhouette is stable. IMPRESSION: Diffuse infiltrates persist bilaterally likely superimposed upon a degree of fibrosis [facility], , 02/23/2024 10:19 AM
[2024-02-23 12:00] LABS: Glucose,Whole Blood 145 mg/dL (70-110)
--- NOTE | 2024-02-23 13:25 | P.PN ---
Subjective Progress Note Date: 02/23/24 SURGICAL PROGRESS NOTE CHIEF COMPLAINT: Shortness of breath HISTORY OF PRESENT ILLNESS: Patient is sitting up in bed. No new complaints. No signs of active bleeding. Hgb stable at 9.6. PHYSICAL EXAM: VITAL SIGNS: Reviewed. GENERAL: in no acute distress. ABDOMEN: Soft. Nondistended. Nontender. NEUROLOGIC: Awake and alert ASSESSMENT: 1. Anemia with Acute GI bleed, HGB stable. No further active bleeding 2. Persistent leukocytosis 3. atrial fibrillation PLAN: -No surgical intervention planned -Continue supportive care Physician Advertising Strategist note has been reviewed by physician. Signing provider agrees with the documented findings, assessment, and plan of care. Objective - Vital Signs Vital signs: Vital Signs Temp 98.4 F 02/23/24 07:15 Pulse 91 02/23/24 07:15 Resp 20 02/23/24 07:15 BP 92/66 02/23/24 07:15 Pulse Ox 99 02/23/24 07:15 FiO2 40 02/16/24 12:48 Intake & Output 02/22/24 02/23/24 02/23/24 18:59 06:59 18:59 Output Total 600 Balance -600 Weight 66 kg Output: Urine 600 Other: Voiding Method Indwelling Catheter Indwelling Catheter # Voids 900 # Bowel Movements 1 ABP, PAP, CO, CI - Last Documented Arterial Blood Pressure 122/71 - Labs CBC & Chem 7: 02/23/24 03:15 02/23/24 03:15 Labs: Abnormal Lab Results - Last 24 Hours (Table) 02/22/24 02/23/24 02/23/24 Range/Units 21:03 03:15 03:15 WBC 21.82 H (4.50-10.00) X 10*3/uL RBC 2.79 L (4.40-5.60) X 10*6/uL Hgb 9.6 L (13.0-17.0) g/dL Hct 29.3 L (39.6-50.0) % MCV 105.0 H (80.0-97.0) FL MCH 34.4 H (27.0-32.0) pg RDW 24.6 H (11.5-14.5) % MPV 14.5 H (9.5-12.2) FL Immature Gran # 0.61 H (0.00-0.04) X 10*3/uL Neutrophils # 18.82 H (1.80-7.70) X 10*3/uL Lymphocytes # 0.85 L (0.90-5.00) X 10*3/uL Monocytes # 1.49 H (0.20-1.00) X 10*3/uL Eosinophils # 0.01 L (0.04-0.35) X 10*3/uL NRBC/100 WBC Diff 0.03 H (0.00-0.01) X 10*3/uL BUN 31.3 H (9.0-27.0) mg/dL BUN/Creatinine Ratio 34.78 H (12.00-20.00) Ratio POC Glucose (mg/dL) 114 H (70-110) mg/dL Calcium 7.3 L (8.7-10.3) mg/dL AST 48 H (14-35) U/L ALT 56 H (10-49) U/L Alkaline Phosphatase 242 H (41-126) U/L Total Protein 4.3 L (6.2-8.2) g/dL Albumin 2.1 L (3.8-4.9) g/dL Albumin/Globulin Ratio 0.95 L (1.60-3.17) Ratio 02/23/24 Range/Units 11:59 WBC (4.50-10.00) X 10*3/uL RBC (4.40-5.60) X 10*6/uL Hgb (13.0-17.0) g/dL Hct (39.6-50.0) % MCV (80.0-97.0) FL MCH (27.0-32.0) pg RDW (11.5-14.5) % MPV (9.5-12.2) FL Immature Gran # (0.00-0.04) X 10*3/uL Neutrophils # (1.80-7.70) X 10*3/uL Lymphocytes # (0.90-5.00) X 10*3/uL Monocytes # (0.20-1.00) X 10*3/uL Eosinophils # (0.04-0.35) X 10*3/uL NRBC/100 WBC Diff (0.00-0.01) X 10*3/uL BUN (9.0-27.0) mg/dL BUN/Creatinine Ratio (12.00-20.00) Ratio POC Glucose (mg/dL) 145 H (70-110) mg/dL Calcium (8.7-10.3) mg/dL AST (14-35) U/L ALT (10-49) U/L Alkaline Phosphatase (41-126) U/L Total Protein (6.2-8.2) g/dL Albumin (3.8-4.9) g/dL Albumin/Globulin Ratio (1.60-3.17) Ratio
--- NOTE | 2024-02-23 13:35 | P.PN ---
Subjective Progress Note Date: 02/23/24 Principal diagnosis: Reason for follow-up is left-sided pneumonia and MSSA bacteremia Patient is a 73-year-old with a past medical history significant for atrial fibrillation heart failure , close head injury patient presenting to the hospital for evaluation of increasing shortness of breath left lower chest pain, patient has been diagnosed with left-sided pneumonia and did have a positive blood culture with MSSA prompted this consultation.Patient did have a chest x-ray morning of 01/30/2024 with evidence of left-sided pneumothorax in this patient who status post chest tube placement on 01/30/2024 by pulmonary On today's evaluation that is 02/23/2024,the patient remains to be afebrile, patient is on 4 L nasal cannula supplemental oxygen and denies any shortness of breath no chest pain or any worsening cough.Patient denies having any nausea or vomiting, no abdominal pain and no diarrhea has been reported. Patient white count is 21.82, creatinine 0.9 chest x-ray this morning diffuse infiltrate persist bilaterally Objective - Vital Signs Vital signs: Vital Signs Temp 98.4 F 02/23/24 07:15 Pulse 91 02/23/24 07:15 Resp 20 02/23/24 07:15 BP 92/66 02/23/24 07:15 Pulse Ox 99 02/23/24 07:15 FiO2 40 02/16/24 12:48 Intake & Output 02/22/24 02/23/24 02/23/24 18:59 06:59 18:59 Output Total 600 Balance -600 Weight 66 kg Output: Urine 600 Other: Voiding Method Indwelling Catheter Indwelling Catheter # Voids 900 # Bowel Movements 1 ABP, PAP, CO, CI - Last Documented Arterial Blood Pressure 122/71 - Exam GENERAL DESCRIPTION: An elderly male lying in bed in no distress RESPIRATORY SYSTEM: Unlabored breathing , close bedside left side HEART: S1 S2 regular rate and rhythm , ABDOMEN: Soft , no tenderness EXTREMITIES: No edema feet - Labs CBC & Chem 7: 02/23/24 03:15 02/23/24 03:15 Labs: Abnormal Lab Results - Last 24 Hours (Table) 02/22/24 02/23/24 02/23/24 Range/Units 21:03 03:15 03:15 WBC 21.82 H (4.50-10.00) X 10*3/uL RBC 2.79 L (4.40-5.60) X 10*6/uL Hgb 9.6 L (13.0-17.0) g/dL Hct 29.3 L (39.6-50.0) % MCV 105.0 H (80.0-97.0) FL MCH 34.4 H (27.0-32.0) pg RDW 24.6 H (11.5-14.5) % MPV 14.5 H (9.5-12.2) FL Immature Gran # 0.61 H (0.00-0.04) X 10*3/uL Neutrophils # 18.82 H (1.80-7.70) X 10*3/uL Lymphocytes # 0.85 L (0.90-5.00) X 10*3/uL Monocytes # 1.49 H (0.20-1.00) X 10*3/uL Eosinophils # 0.01 L (0.04-0.35) X 10*3/uL NRBC/100 WBC Diff 0.03 H (0.00-0.01) X 10*3/uL BUN 31.3 H (9.0-27.0) mg/dL BUN/Creatinine Ratio 34.78 H (12.00-20.00) Ratio POC Glucose (mg/dL) 114 H (70-110) mg/dL Calcium 7.3 L (8.7-10.3) mg/dL AST 48 H (14-35) U/L ALT 56 H (10-49) U/L Alkaline Phosphatase 242 H (41-126) U/L Total Protein 4.3 L (6.2-8.2) g/dL Albumin 2.1 L (3.8-4.9) g/dL Albumin/Globulin Ratio 0.95 L (1.60-3.17) Ratio 02/22/ Range/Units 11:59 WBC (4.50-10.00) X 10*3/uL RBC (4.40-5.60) X 10*6/uL Hgb (13.0-17.0) g/dL Hct (39.6-50.0) % MCV (80.0-97.0) FL MCH (27.0-32.0) pg RDW (11.5-14.5) % MPV (9.5-12.2) FL Immature Gran # (0.00-0.04) X 10*3/uL Neutrophils # (1.80-7.70) X 10*3/uL Lymphocytes # (0.90-5.00) X 10*3/uL Monocytes # (0.20-1.00) X 10*3/uL Eosinophils # (0.04-0.35) X 10*3/uL NRBC/100 WBC Diff (0.00-0.01) X 10*3/uL BUN (9.0-27.0) mg/dL BUN/Creatinine Ratio (12.00-20.00) Ratio POC Glucose (mg/dL) 145 H (70-110) mg/dL Calcium (8.7-10.3) mg/dL AST (14-35) U/L ALT (10-49) U/L Alkaline Phosphatase (41-126) U/L Total Protein (6.2-8.2) g/dL Albumin (3.8-4.9) g/dL Albumin/Globulin Ratio (1.60-3.17) Ratio Assessment and Plan (1) Bacteremia due to methicillin susceptible Staphylococcus aureus (MSSA) Current Visit: Yes Status: Acute Code(s): R78.81 - BACTEREMIA; B95.61 - METHICILLIN SUSCEP STAPH INFCT CAUSING DIS CLASSD ELSWHR SNOMED Code(s): 250410838 (2) Pneumonia Current Visit: Yes Status: Acute Code(s): J18.9 - PNEUMONIA, UNSPECIFIED ORGANISM SNOMED Code(s): 908850856 (3) Leukocytosis Current Visit: Yes Status: Acute Code(s): D72.829 - ELEVATED WHITE BLOOD CELL COUNT, UNSPECIFIED SNOMED Code(s): 911458112 Plan: 1patient presented to hospital with sepsis in this patient who did have leukocytosis tachycardia meeting criteria for SIRS source is left lower lobe pneumonia 2-patient with MSSA bacteremia source likely pneumonia, blood culture repeat has been negative so far 3-patient CT of the chest did not show any empyema echocardiogram did not show any valvular abnormalities repeat blood culture negative 4patient did have complication of left-sided pneumothorax s/p is chest tube placement. Patient did have persistent leak CT surgery is closely following the patient considered to be high risk for any surgical procedure 5 the patient is afebrile the patient did have worsening of his white count possible component of oropharyngeal candidiasis versus due to elevated 6-patient did have improvement his white count is slightly up to 21,000 compared to 20,000 yesterday I will continue Rocephin and Diflucan and monitor clinical course closely Dictation was produced using [employer] dictation software. please excuse any grammatical, word or spelling errors. Time with Patient: Less than 30
[2024-02-23 16:50] LABS: Glucose,Whole Blood 188 mg/dL (70-110)
--- NOTE | 2024-02-23 19:42 | P.PN ---
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 02/23/2024 shows stable findings Sputum culture on 02/15/2024 positive for E. coli, currently on Rocephin and Karolyn trim for previous Staph aureus Currently on 4 L high flow nasal cannula Continued on Lasix 40 mg every 12 hours, achieving a negative fluid balance Lower extremity edema is improving Currently in a negative balance Continue midodrine Repeat chest x-ray in the morning Persistent leukocytosis, improving Encouraged increase oral intake DNR/DNI CODE STATUS Plan is for [facility] at discharge
[2024-02-23 20:44] LABS: Glucose,Whole Blood 170 mg/dL (70-110)
[2024-02-24 06:21] LABS: Glucose,Whole Blood 174 mg/dL (70-110)
--- NOTE | 2024-02-24 09:58 | P.PN ---
Subjective Progress Note Date: 02/24/24 Rodriguez Jackson, is a 73-year-old male who presented to [facility] emergency room with a chief complaint of worsening shortness of breath, patient stated that he fell 2 weeks ago, he was complaining of left-sided rib pain especially when he takes a deep breath. He was also complaining of cough otherwise he denies any complaints. He was evaluated in the emergency room vital examination on presentation revealed a temperature of 98.8 pulse 118 respiration 18 blood pressure 130/78 pulse ox 97% on 10 L nonrebreather mask Laboratory data revealed a white blood count of 20.8 hemoglobin 12.2 platelet count 310 sodium 134 potassium 3.4 chloride 102 BUN 51 creatinine 1.77 AST 188 ALT 135 troponin 0.012 Testing in the emergency room revealed EKG done in the emergency room revealed atrial fibrillation with rapid ventricular response, chest x-ray revealed patchy left and right lower lobe infiltrates worse on the left. Patient was admitted to medical floor for further evaluation and treatment, pulmonary consultation and cardiology consultation were requested. On 01/23/2024 patient was seen and examined on the medical floor he is alert and oriented x 3 in no apparent distress he reports mild improvement in his shortness of breath, he is still complaining of cough and complaining of chest wall pain otherwise he denies any complaints there is no fever or chills no headache or dizziness no nausea or vomiting no abdominal pain no diarrhea no blood in the stools no burning with urination no frequency or urgency and no hematuria. His temperature is 98.8 pulse 108 respiration 26 blood pressure 138/92 pulse ox 91% on 11 L high flow cannula, white blood count is 26.7 hemoglobin 12.8 platelet count 281 BUN 31 creatinine 1.04 On 01/24/2024 patient is alert and oriented x 3. Patient still having some significant shortness of breath currently on 11 L nasal cannula. Cardiology, pu lmonary and infectious disease services are following. Patient remains on Cardizem drip. Patient remains on IV steroids and IV cefazolin. White blood cell 35.7, creatinine 1.18 bun 40. Current vital signs temp 97.8, heart 76, respiratory rate 26, blood pressure 112/73 with a pulse ox of 91% on 11 L On 01/25/2024 patient is alert and oriented x 3 patient reports some improvement with shortness of breath. Pulmonary cardiology and infectious disease services are following. Cardizem dean has been DC'd patient transition to p.o. Cardizekatey per cardiology continue IV antibiotics and steroids at this time.. Current vital signs temp 96.4, heart rate 74, respiratory rate 18, blood pressure 118/83 with a pulse ox of 97% on 10 L high flow. On 01/26/2024 patient was seen and examined on the medical floor he is alert and oriented x 3 in mild respiratory distress, he is maintained on high flow oxygen of 11 L/min, he is still complaining of cough and chest discomfort otherwise he denies any complaints, there is no fever or chills no headache or dizziness no chest pain no nausea or vomiting no abdominal pain no diarrhea no blood in the stools no burning with urination no frequency or urgency and no hematuria. Testing for COVID was positive yesterday. Pulmonary and infectious disease are following. On 01/27/2024 patient is alert and oriented x 3 patient continued to having increase oxygen demands. Per nursing staff pulmonary services were notified patient currently on high flow [address] scan of chest this morning which showed diffuse groundglass opacities and correlation for atypical pneumonia. Patient remains on IV Kefzol and prednisone. Pulmonary and infectious disease services following. Cardiology also following On 01/28/2024 patient is alert and oriented x 3. Patient at this time is resting comfortably in bed. Patient remains on Airvo 60%. Temp 97.6, heart rate 95, respiratory rate 24, blood pressure 100/67. Pulmonary cardiology and infectious disease are following patient remains on IV Kefzol and Solu-Medrol On 01/29/2024 patient was seen and examined on the medical floor he is alert and oriented x 3 in no apparent distress,he is still maintained on high flow oxygen, he is complaining of generalized weakness and complaining of constipation he has very poor oral intake, there is no fever or chills no headache or dizziness no chest pain, he has shortness of breath with any activity no palpitation he has continuous cough no nausea or vomiting no abdominal pain no diarrhea and no urinary symptoms. On 01/30/2024 patient was seen and examined in the ICU, he is alert responsive in no apparent distress maintained on high flow oxygen via Airvo, he was transferred to ICU due to worsening shortness of breath, chest x-ray today revealed interval development of a large left-sided pneumothorax estimated at 40%, he underwent chest tube placement, on the left. His vital exam reveals a temperature of 97.5 pulse 108 respiration 33 blood pressure 133/82 pulse ox is 98% on high flow cannula with FiO2 of 50% On 01/31/2024 patient remains in the intensive care unit. Chest tube in place. Current vital signs temp 97.9, heart rate 84, respiratory rate 23, blood pressure 102/71 with a pulse ox of 97% on high flow of 40%. Patient remains s hort of breath. Patient denies chest pain. Patient denies nausea vomiting or diarrhea. Patient denies any urinary burning or frequency On 02/01/2024 patient is alert and oriented x 3. Patient remains in the intensive care unit. Tube remains in place. Current vital signs temp 97.7, heart rate 79, respiratory rate 24, blood pressure 117/76 with a pulse ox of 100% on 6 L high flow. Patient reports some improvement with shortness of breath. Patient denies chest pain. Patient denies nausea vomiting or diarrhea. On 02/02/2024 patient was seen and examined in the ICU, he is alert and oriented x 3 in no apparent distress, he is complaining of discomfort at the chest tube site, and complaining of shortness of breath otherwise he denies any complaints there is no fever or chills no headache or dizziness, no chest pain, he has occasional cough no nausea or vomiting no abdominal pain no diarrhea no urinary symptoms. Temperature is 97.4 pulse 90 respiration 23 blood pressure 106/78 pulse ox 95% on 4 L nasal cannula, white blood count 45.7 hemoglobin 11.1 platelet count 199 BUN 45 creatinine 0.89 On 02/03/2024 patient remains in the ICU alert and oriented x 3. Patient still has chest tube complaining of some discomfort at site. Speech services at bedside assessing swallow still recommending nectar thick liquids. Current vital signs temp 97.6, heart rate 93, respiratory rate 21. Patient denies chest pain or shortness of breath. Patient denies nausea vomiting or diarrhea. Patient denies any urinary burning and frequency. On 02/04/2024 patient was seen and examined in the intensive care unit, he is alert and oriented in no apparent distress, he is complaining of pain in the chest wall site of the chest tube otherwise he denies any complaints, there is no fever or chills no headache or dizziness no chest pain no shortness of breath no cough no nausea or vomiting no abdominal pain no diarrhea no urinary symptoms, temperature is 97.5 pulse 89 respiration 16 blood pressure 108/68 pulse ox 96% on 4 L nasal cannula. His white blood count is 28.9 hemoglobin 11.0 platelet count 147 sodium 136 potassium 3.9 chloride 111 CO2 23 BUN 30 creatinine 0.94 On 02/05/2024 patient remains in the intensive care unit alert and oriented 3. Patient is down to 2 L. Chest tube remains in place.Patient's appetite remains poor patient has been started on Megace. Will consult when necessary for possible discharge planning. Patient denies chest pain or shortness breath. Patient denies nausea vomiting or diarrhea. Patient denies any urinary burning or frequency. Current vital signs temp 97.6, heart rate 80, respiratory rate 19,, Blood pressure 98/70 with pulse ox 95% on 2 L On 02/06/2024 patient was seen and examined on the telemetry floor, he is alert and oriented x 3. Current vital signs temp 97.9, heart rate 93, respiratory rate 18. blood pressure 122/60 Patient denies chest pain or shortness of breath. Patient denies nausea vomiting or diarrhea. Patient denies any urinary burning and frequency. On 03/05/2024 patient is alert and oriented x 3. Patient complaining about difficulty sleeping melatonin added. Discharge planning to [facility]. Patient remain s with chest tube awaiting further recommendations from pulmonary services. Current vital signs temp 97.3, heart rate 78, respiratory rate 18, blood pressure 133/80 with a pulse ox of 93% on 4 L. Patient denies chest pain or shortness of breath. Patient denies nausea vomiting or diarrhea. Patient denies any urinary burning or frequency On 02/08/2024 patient is alert and oriented x 3. Cardiothoracic surgery was consulted due to left-sided pneumothorax with chest tube placement with continuous airleak at this time recommendations to continue wall suction and will monitor. Patient denies chest pain or shortness of breath. Patient denies nausea vomiting or diarrhea. Patient denies any urinary burning or frequency. Current temp 97.3, heart rate 68, respiratory rate 18, blood pressure 96/63 with a pulse ox of 92% on 4 L On 02/09/2024 patient is alert and oriented x 3. Patient was transferred to the intensive care unit last night due to large bloody bowel movement and hypotension. At this time patient's Eliquis has been on hold. Surgical services have been consulted. Patient denies chest pain or shortness of breath. Patient denies nausea vomiting or diarrhea. Patient denies any urinary burning or frequency. Patient may require norepinephrine for blood pressure support co ntinue ICU management at this time. Critical care services following On 02/10/2024 patient is alert and oriented x 3. Per nursing staff patient has had no further episodes of large-volume bloody bowel movement. Patient still having some hypotension. Patient was evaluated by surgical services Eliquis remains on hold hemoglobin remained stable continue monitoring at this time. Patient also being followed by cardiothoracic surgery chest tube remains to suction at this time. Patient denies chest pain or shortness of breath. Patient denies any urinary burning or frequency. Patient denies nausea vomiting or diarrhea. On 02/11/2024 patient was seen and examined in the ICU, he is alert and oriented x 3 in no apparent distress, he is still complaining of left-sided chest wall pain site of his chest tube, otherwise he denies any complaints there is no fever or chills no headache or dizziness no chest pain no shortness of breath no cough no nausea or vomiting no abdominal pain no diarrhea no blood in the stools no burning with urination no frequency or urgency and no hematuria, patient has very low oral intake, he was encouraged in length in regard to increasing his diet and taking some protein supplements, albumin is low to 1.7, alternatively patient may need a Dobbhoff tube with enteral feeding. Will continue to follow closely On 02/12/2024 patient is alert and oriented x 3 remains in the ICU. Patient remains on IV Lasix patient having increased lower extremity edema. Appetite remains poor. Current vital signs temp 98.7, heart rate 89, respiratory rate 19, blood pressure 88/52 with a pulse ox of 93% on Airvo 60%. Patient denies chest pain or shortness of breath. Patient denies nausea vomiting or diarrhea. Patient denies any urinary burning or frequency On 02/13/2024 patient's alert and oriented remains in the intensive care unit. Remains on IV Lasix. Patient also remains on IV Zosyn. Multiple consults following. Patient remains on Airvo 60% and patient was started on Levophed for pressure support On 02/14/2024 patient is alert and oriented x 3. Edema has slightly improved. Patient remains on Levophed. Current vital signs temp 98.0, heart rate 94, r espiratory rate 19, blood pressure 102/73 with a pulse ox of 96% on Airvo 60%. Hemoglobin 8.9, white blood cell 28.6, creatinine 1.14 bun 33 On 02/15/2024 patient is alert and oriented x 3 patient remains in the intensive care unit Levophed getting weaned down per nursing staff chest tube has been removed. Patient remains on Airvo. Current vital signs temp 98.2, heart 81, respiratory rate 15, blood pressure 105/67 with a pulse ox of 112/64. Pulse ox 94% with an Airvo FiO2 of 50%. Patient denies chest pain or shortness of breath. Patient denies nausea vomiting or diarrhea. Patient denies any urinary burning or frequency. On 02/16/2024 patient was seen and examined in the ICU he is alert and oriented x 3 in no apparent distress there is no fever or chills no headache or dizziness no chest pain no shortness of breath, at rest patient is maintained on Airvo, high flow oxygen, no nausea or vomiting no abdominal pain no diarrhea no urinary symptoms. On 02/17/2024 patient remains in the ICU alert and oriented x 3. Patient is down to high flow and Levophed has been turned off. Per critical care will continue to monitor patient in the ICU for an additional 24 hours. Current temp 97.4, heart rate 87, respiratory rate 17, blood pressure 114/62 with a pulse ox of 95% on high flow 6 L. Patient denies chest pain or shortness of breath. Patient denies nausea vomiting or diarrhea. Patient denies any urinary burning or frequency On 02/18/2024 patient was seen and examined on the telemetry floor, he is alert and oriented x 3 in no apparent distress, he is still complaining of shortness of breath , he is maintained on oxygen 4 L via nasal cannula , he is complaining of chest wall pain site of his old chest tube , otherwise he denies any complaints at this time , there is no fever or chills, no headache or dizziness no chest pain he has occasional cough no nausea or vomiting no abdominal pain no diarrhea and no urinary symptoms, patient has been bedbound for several days, he will need to transfer to rehab when medically clear. On 02/19/2024 patient is alert and oriented x 3. At this time patient denies chest pain or shortness of breath. Patient denies nausea vomiting or diarrhea. Patient denies any urinary burning and frequency. Current vital signs temp 97.3 , heart rate 77, respiratory rate 17, blood pressure 110/74 with a pulse ox of 94% on 4 L On 02/20/2024 patient was seen and examined on the medical floor he is alert and oriented x 3 in no apparent distress he is maintained on oxygen 4 L via nasal cannula, he denies any chest pain or shortness of breath at rest vital exam reveals a temperature of 97.4 pulse 85 respiration 13 blood pressure 108/74 pulse ox 95% on 4 L nasal cannula, white blood count 29.95 hemoglobin 9.9 platelet count 237 BUN 37.5 creatinine 1.2, medication and labs were reviewed continue with current management will recheck in a.m. On 02/21/2024 patient is alert and oriented 3. Patient reports some increased shortness of breath intubated have been adjusted per ID will order chest x- ray.current vital signs temp 97.3, heart rate 97, respiratory rate 20, blood pressure 99/60 with pulse ox 92% on 4 L. Infectious disease, pulmonary and surgical services are following On 02/22/2024 patient is alert and oriented x 3. Patient reports some improvement. Chest x-ray showing interstitial infiltrate. Pulmonary and infec tious disease services are following. Current vital signs temp 97.6, heart rate 89, respiratory rate 20, blood pressure 97/66 with a pulse ox of 95% on 4 L patient denies chest pain. Patient denies nausea vomiting or diarrhea. Patient denies any urinary burning or frequency On 02/24/2024 patient is alert and oriented x 3. Patient still having some significant wheezing and shortness of breath remains on IV Rocephin and Diflucan infectious disease and neurology services following. Current vital signs temp 97.6, heart rate 85, respiratory rate 16, blood pressure 93/61 with a pulse ox of 96% on 4 L Objective - Vital Signs Vital signs: Vital Signs Temp 97.4 F L 02/24/24 00:59 Pulse 85 02/24/24 00:59 Resp 18 02/24/24 00:59 BP 93/62 02/24/24 00:59 Pulse Ox 93 L 02/24/24 00:59 FiO2 40 02/16/24 12:48 Intake & Output 02/23/24 02/24/24 02/24/24 18:59 06:59 18:59 Output Total 800 1100 Balance -800 -1100 Weight 66 kg Output: Urine 800 1100 Other: Voiding Method Indwelling Catheter Indwelling Catheter # Bowel Movements 1 ABP, PAP, CO, CI - Last Documented Arterial Blood Pressure 122/71 - Exam In general patient is alert and oriented x 3 in no distress HEENT head normocephalic and atraumatic Neck is supple no JVD no goiter no lymphadenopathy no carotid bruit Chest examination reveals a scattered crackles bilaterally no wheezing Cardiac exam reveals irregular heart sounds S1 and S2 with tachycardia no gallops no murmurs Abdomen is soft nontender no organomegaly with normal bowel sounds Extremity exam reveals no edema no cyanosis or clubbing Neurological examination reveals no gross focal deficits - Labs CBC & Chem 7: 02/23/24 03:15 02/23/24 03:15 Labs: Abnormal Lab Results - Last 24 Hours (Table) 02/23/24 02/23/24 02/23/24 Range/Units 03:15 03:15 11:59 WBC 21.82 H (4.50-10.00) X 10*3/uL RBC 2.79 L (4.40-5.60) X 10*6/uL Hgb 9.6 L (13.0-17.0) g/dL Hct 29.3 L (39.6-50.0) % MCV 105.0 H (80.0-97.0) FL MCH 34.4 H (27.0-32.0) pg RDW 24.6 H (11.5-14.5) % MPV 14.5 H (9.5-12.2) FL Immature Gran # 0.61 H (0.00-0.04) X 10*3/uL Neutrophils # 18.82 H (1.80-7.70) X 10*3/uL Lymphocytes # 0.85 L (0.90-5.00) X 10*3/uL Monocytes # 1.49 H (0.20-1.00) X 10*3/uL Eosinophils # 0.01 L (0.04-0.35) X 10*3/uL NRBC/100 WBC Diff 0.03 H (0.00-0.01) X 10*3/uL BUN 31.3 H (9.0-27.0) mg/dL BUN/Creatinine Ratio 34.78 H (12.00-20.00) Ratio POC Glucose (mg/dL) 145 H (70-110) mg/dL Calcium 7.3 L (8.7-10.3) mg/dL AST 48 H (14-35) U/L ALT 56 H (10-49) U/L Alkaline Phosphatase 242 H (41-126) U/L Total Protein 4.3 L (6.2-8.2) g/dL Albumin 2.1 L (3.8-4.9) g/dL Albumin/Globulin Ratio 0.95 L (1.60-3.17) Ratio 02/23/24 02/23/24 02/24/24 Range/Units 16:49 20:43 06:19 WBC (4.50-10.00) X 10*3/uL RBC (4.40-5.60) X 10*6/uL Hgb (13.0-17.0) g/dL Hct (39.6-50.0) % MCV (80.0-97.0) FL MCH (27.0-32.0) pg RDW (11.5-14.5) % MPV (9.5-12.2) FL Immature Gran # (0.00-0.04) X 10*3/uL Neutrophils # (1.80-7.70) X 10*3/uL Lymphocytes # (0.90-5.00) X 10*3/uL Monocytes # (0.20-1.00) X 10*3/uL Eosinophils # (0.04-0.35) X 10*3/uL NRBC/100 WBC Diff (0.00-0.01) X 10*3/uL BUN (9.0-27.0) mg/dL BUN/Creatinine Ratio (12.00-20.00) Ratio POC Glucose (mg/dL) 188 H 170 H 174 H (70-110) mg/dL Calcium (8.7-10.3) mg/dL AST (14-35) U/L ALT (10-49) U/L Alkaline Phosphatase (41-126) U/L Total Protein (6.2-8.2) g/dL Albumin (3.8-4.9) g/dL Albumin/Globulin Ratio (1.60-3.17) Ratio Assessment and Plan Assessment: 1. Pneumonia with sepsis as evident by elevated lactic acid and leukocytosis 2. Acute kidney injury secondary to sepsis and dehydration, kidney function improved significantly since admission 3. History of atrial fibrillation maintained on Eliquis, with episodes of rapid ventricular response during this presentation 4. History of CHF 5. Acute hypoxic respiratory failure requiring high flow oxygen supplements pulmonary are following 6. Elevated liver enzymes we will hold statin at this time and recheck 7. Positive blood culture for Staphylococcus aureus, consultation for infectiou s disease was initiated 8. COVID-19 positive 9. Left-sided pneumothorax requiring left-sided chest tube insertion 10. GI bleed. Surgical services consulted Eliquis currently on hold 11. Hypotension secondary to above patient currently in ICU may require vasopressors for blood pressure support DVT prophylaxis Eliquis. GI prophylaxis Protonix Pulmonary services consulted, infectious disease cardiology consultation requested echocardiogram ordered Blood and sputum cultures ordered Repeat labs ordered
[2024-02-24 10:09] LABS: ALT 78 U/L (10-49); AST 67 U/L (14-35); Albumin/Globulin Ratio 0.83 Ratio (1.60-3.17); Alkaline Phosphatase 298 U/L (41-126); Blood Urea Nitrogen 32.3 mg/dL (9.0-27.0); Calcium 7.2 mg/dL (8.7-10.3); Carbon Dioxide 27.3 mmol/L (21.6-31.8); Chloride 99 mmol/L (96-109); Globulin 2.4 g/dL (1.6-3.3); Glucose 66 mg/dL (70-110); Potassium 3.7 mmol/L (3.5-5.5); Sodium 138 mmol/L (135-145); Total Bilirubin 0.5 mg/dL (0.3-1.2); Total Protein 4.4 g/dL (6.2-8.2)
--- NOTE | 2024-02-24 10:17 | P.PN ---
Subjective Progress Note Date: 02/24/24 SURGICAL PROGRESS NOTE CHIEF COMPLAINT: Shortness of breath HISTORY OF PRESENT ILLNESS: Patient is sitting up in bed. No new complaints. No signs of active bleeding. Hgb stable at 9.6 on 02/22. PHYSICAL EXAM: VITAL SIGNS: Reviewed. GENERAL: in no acute distress. ABDOMEN: Soft. Nondistended. Nontender. NEUROLOGIC: Awake and alert ASSESSMENT: 1. Anemia with Acute GI bleed, HGB stable. No further active bleeding 2. Persistent leukocytosis 3. atrial fibrillation PLAN: -No surgical intervention planned -Continue supportive care Physician [employer] note has been reviewed by physician. Signing provider agrees with the documented findings, assessment, and plan of care. Objective - Vital Signs Vital signs: Vital Signs Temp 97.6 F 02/24/24 07:10 Pulse 85 02/24/24 07:10 Resp 16 02/24/24 07:10 BP 93/61 02/24/24 07:10 Pulse Ox 93 L 02/24/24 09:14 FiO2 40 02/16/24 12:48 Intake & Output 02/23/24 02/24/24 02/24/24 18:59 06:59 18:59 Output Total 800 1100 Balance -800 -1100 Weight 66 kg Output: Urine 800 1100 Other: Voiding Method Indwelling Catheter Indwelling Catheter Indwelling Catheter # Bowel Movements 1 ABP, PAP, CO, CI - Last Documented Arterial Blood Pressure 122/71 - Labs CBC & Chem 7: 02/23/24 03:15 02/24/24 03:10 Labs: Abnormal Lab Results - Last 24 Hours (Table) 02/23/24 02/23/24 02/23/24 Range/Units 11:59 16:49 20:43 BUN (9.0-27.0) mg/dL BUN/Creatinine Ratio (12.00-20.00) Ratio Glucose (70-110) mg/dL POC Glucose (mg/dL) 145 H 188 H 170 H (70-110) mg/dL Calcium (8.7-10.3) mg/dL AST (14-35) U/L ALT (10-49) U/L Alkaline Phosphatase (41-126) U/L Total Protein (6.2-8.2) g/dL Albumin (3.8-4.9) g/dL Albumin/Globulin Ratio (1.60-3.17) Ratio 02/24/24 02/24/24 Range/Units 03:10 06:19 BUN 32.3 H (9.0-27.0) mg/dL BUN/Creatinine Ratio 32.30 H (12.00-20.00) Ratio Glucose 66 L (70-110) mg/dL POC Glucose (mg/dL) 174 H (70-110) mg/dL Calcium 7.2 L (8.7-10.3) mg/dL AST 67 H (14-35) U/L ALT 78 H (10-49) U/L Alkaline Phosphatase 298 H (41-126) U/L Total Protein 4.4 L (6.2-8.2) g/dL Albumin 2.0 L (3.8-4.9) g/dL Albumin/Globulin Ratio 0.83 L (1.60-3.17) Ratio
[2024-02-24 10:58] LABS: Basophils # (A) 0.04 X 10*3/uL (0.00-0.10); Basophils % (A) 0.2 %; Eosinophils # (A) 0 X 10*3/uL (0.04-0.35); Eosinophils % (A) 0 %; HCT 28.3 % (39.6-50.0); Lymphocytes # (A) 1.05 X 10*3/uL (0.90-5.00); Lymphocytes % (A) 4.4 %; MCH 33.5 pg (27.0-32.0); MCHC 31.8 g/dL (32.0-37.0); MCV 105.2 FL (80.0-97.0); Mean Platelet Volume 14.7 FL (9.5-12.2); Monocytes # (A) 1.62 X 10*3/uL (0.20-1.00); Monocytes % (A) 6.8 %; NRBC Per 100 WBC 0.02 X 10*3/uL (0.00-0.01); Neutrophils # (A) 20.65 X 10*3/uL (1.80-7.70); Neutrophils % (A) 86.7 %; Platelet Count 227 X 10*3/uL (140-440); RBC 2.69 X 10*6/uL (4.40-5.60); RDW 24.1 % (11.5-14.5); WBC 23.81 X 10*3/uL (4.50-10.00)
[2024-02-24 10:59] LABS: Macrocytosis (M) 2+ (None Seen)
[2024-02-24 12:09] LABS: Glucose,Whole Blood 95 mg/dL (70-110)
--- NOTE | 2024-02-24 14:12 | P.PN ---
Subjective Progress Note Date: 02/23/24 Rodriguez Jackson, is a 73-year-old male who presented to [facility] emergency room with a chief complaint of worsening shortness of breath, patient stated that he fell 2 weeks ago, he was complaining of left-sided rib pain especially when he takes a deep breath. He was also complaining of cough otherwise he denies any complaints. He was evaluated in the emergency room vital examination on presentation revealed a temperature of 98.8 pulse 118 respiration 18 blood pressure 130/78 pulse ox 97% on 10 L nonrebreather mask Laboratory data revealed a white blood count of 20.8 hemoglobin 12.2 platelet count 310 sodium 134 potassium 3.4 chloride 102 BUN 51 creatinine 1.77 AST 188 ALT 135 troponin 0.012 Testing in the emergency room revealed EKG done in the emergency room revealed atrial fibrillation with rapid ventricular response, chest x-ray revealed patchy left and right lower lobe infiltrates worse on the left. Patient was admitted to medical floor for further evaluation and treatment, pulmonary consultation and cardiology consultation were requested. On 01/23/2024 patient was seen and examined on the medical floor he is alert and oriented x 3 in no apparent distress he reports mild improvement in his shortness of breath, he is still complaining of cough and complaining of chest wall pain otherwise he denies any complaints there is no fever or chills no headache or dizziness no nausea or vomiting no abdominal pain no diarrhea no blood in the stools no burning with urination no frequency or urgency and no hematuria. His temperature is 98.8 pulse 108 respiration 26 blood pressure 138/92 pulse ox 91% on 11 L high flow cannula, white blood count is 26.7 hemoglobin 12.8 platelet count 281 BUN 31 creatinine 1.04 On 01/24/2024 patient is alert and oriented x 3. Patient still having some significant shortness of breath currently on 11 L nasal cannula. Cardiology, pu lmonary and infectious disease services are following. Patient remains on Cardizem drip. Patient remains on IV steroids and IV cefazolin. White blood cell 35.7, creatinine 1.18 bun 40. Current vital signs temp 97.8, heart 76, respiratory rate 26, blood pressure 112/73 with a pulse ox of 91% on 11 L On 01/25/2024 patient is alert and oriented x 3 patient reports some improvement with shortness of breath. Pulmonary cardiology and infectious disease services are following. Cardizem dean has been DC'd patient transition to p.o. Cardizekatey per cardiology continue IV antibiotics and steroids at this time.. Current vital signs temp 96.4, heart rate 74, respiratory rate 18, blood pressure 118/83 with a pulse ox of 97% on 10 L high flow. On 01/26/2024 patient was seen and examined on the medical floor he is alert and oriented x 3 in mild respiratory distress, he is maintained on high flow oxygen of 11 L/min, he is still complaining of cough and chest discomfort otherwise he denies any complaints, there is no fever or chills no headache or dizziness no chest pain no nausea or vomiting no abdominal pain no diarrhea no blood in the stools no burning with urination no frequency or urgency and no hematuria. Testing for COVID was positive yesterday. Pulmonary and infectious disease are following. On 01/27/2024 patient is alert and oriented x 3 patient continued to having increase oxygen demands. Per nursing staff pulmonary services were notified patient currently on high flow [address] scan of chest this morning which showed diffuse groundglass opacities and correlation for atypical pneumonia. Patient remains on IV Kefzol and prednisone. Pulmonary and infectious disease services following. Cardiology also following On 01/28/2024 patient is alert and oriented x 3. Patient at this time is resting comfortably in bed. Patient remains on Airvo 60%. Temp 97.6, heart rate 95, respiratory rate 24, blood pressure 100/67. Pulmonary cardiology and infectious disease are following patient remains on IV Kefzol and Solu-Medrol On 01/29/2024 patient was seen and examined on the medical floor he is alert and oriented x 3 in no apparent distress,he is still maintained on high flow oxygen, he is complaining of generalized weakness and complaining of constipation he has very poor oral intake, there is no fever or chills no headache or dizziness no chest pain, he has shortness of breath with any activity no palpitation he has continuous cough no nausea or vomiting no abdominal pain no diarrhea and no urinary symptoms. On 01/30/2024 patient was seen and examined in the ICU, he is alert responsive in no apparent distress maintained on high flow oxygen via Airvo, he was transferred to ICU due to worsening shortness of breath, chest x-ray today revealed interval development of a large left-sided pneumothorax estimated at 40%, he underwent chest tube placement, on the left. His vital exam reveals a temperature of 97.5 pulse 108 respiration 33 blood pressure 133/82 pulse ox is 98% on high flow cannula with FiO2 of 50% On 01/31/2024 patient remains in the intensive care unit. Chest tube in place. Current vital signs temp 97.9, heart rate 84, respiratory rate 23, blood pressure 102/71 with a pulse ox of 97% on high flow of 40%. Patient remains s hort of breath. Patient denies chest pain. Patient denies nausea vomiting or diarrhea. Patient denies any urinary burning or frequency On 02/01/2024 patient is alert and oriented x 3. Patient remains in the intensive care unit. Tube remains in place. Current vital signs temp 97.7, heart rate 79, respiratory rate 24, blood pressure 117/76 with a pulse ox of 100% on 6 L high flow. Patient reports some improvement with shortness of breath. Patient denies chest pain. Patient denies nausea vomiting or diarrhea. On 02/02/2024 patient was seen and examined in the ICU, he is alert and oriented x 3 in no apparent distress, he is complaining of discomfort at the chest tube site, and complaining of shortness of breath otherwise he denies any complaints there is no fever or chills no headache or dizziness, no chest pain, he has occasional cough no nausea or vomiting no abdominal pain no diarrhea no urinary symptoms. Temperature is 97.4 pulse 90 respiration 23 blood pressure 106/78 pulse ox 95% on 4 L nasal cannula, white blood count 45.7 hemoglobin 11.1 platelet count 199 BUN 45 creatinine 0.89 On 02/03/2024 patient remains in the ICU alert and oriented x 3. Patient still has chest tube complaining of some discomfort at site. Speech services at bedside assessing swallow still recommending nectar thick liquids. Current vital signs temp 97.6, heart rate 93, respiratory rate 21. Patient denies chest pain or shortness of breath. Patient denies nausea vomiting or diarrhea. Patient denies any urinary burning and frequency. On 02/04/2024 patient was seen and examined in the intensive care unit, he is alert and oriented in no apparent distress, he is complaining of pain in the chest wall site of the chest tube otherwise he denies any complaints, there is no fever or chills no headache or dizziness no chest pain no shortness of breath no cough no nausea or vomiting no abdominal pain no diarrhea no urinary symptoms, temperature is 97.5 pulse 89 respiration 16 blood pressure 108/68 pulse ox 96% on 4 L nasal cannula. His white blood count is 28.9 hemoglobin 11.0 platelet count 147 sodium 136 potassium 3.9 chloride 111 CO2 23 BUN 30 creatinine 0.94 On 02/05/2024 patient remains in the intensive care unit alert and oriented 3. Patient is down to 2 L. Chest tube remains in place.Patient's appetite remains poor patient has been started on Megace. Will consult when necessary for possible discharge planning. Patient denies chest pain or shortness breath. Patient denies nausea vomiting or diarrhea. Patient denies any urinary burning or frequency. Current vital signs temp 97.6, heart rate 80, respiratory rate 19,, Blood pressure 98/70 with pulse ox 95% on 2 L On 02/06/2024 patient was seen and examined on the telemetry floor, he is alert and oriented x 3. Current vital signs temp 97.9, heart rate 93, respiratory rate 18. blood pressure 122/60 Patient denies chest pain or shortness of breath. Patient denies nausea vomiting or diarrhea. Patient denies any urinary burning and frequency. On 03/05/2024 patient is alert and oriented x 3. Patient complaining about difficulty sleeping melatonin added. Discharge planning to [facility]. Patient remain s with chest tube awaiting further recommendations from pulmonary services. Current vital signs temp 97.3, heart rate 78, respiratory rate 18, blood pressure 133/80 with a pulse ox of 93% on 4 L. Patient denies chest pain or shortness of breath. Patient denies nausea vomiting or diarrhea. Patient denies any urinary burning or frequency On 02/08/2024 patient is alert and oriented x 3. Cardiothoracic surgery was consulted due to left-sided pneumothorax with chest tube placement with continuous airleak at this time recommendations to continue wall suction and will monitor. Patient denies chest pain or shortness of breath. Patient denies nausea vomiting or diarrhea. Patient denies any urinary burning or frequency. Current temp 97.3, heart rate 68, respiratory rate 18, blood pressure 96/63 with a pulse ox of 92% on 4 L On 02/09/2024 patient is alert and oriented x 3. Patient was transferred to the intensive care unit last night due to large bloody bowel movement and hypotension. At this time patient's Eliquis has been on hold. Surgical services have been consulted. Patient denies chest pain or shortness of breath. Patient denies nausea vomiting or diarrhea. Patient denies any urinary burning or frequency. Patient may require norepinephrine for blood pressure support co ntinue ICU management at this time. Critical care services following On 02/10/2024 patient is alert and oriented x 3. Per nursing staff patient has had no further episodes of large-volume bloody bowel movement. Patient still having some hypotension. Patient was evaluated by surgical services Eliquis remains on hold hemoglobin remained stable continue monitoring at this time. Patient also being followed by cardiothoracic surgery chest tube remains to suction at this time. Patient denies chest pain or shortness of breath. Patient denies any urinary burning or frequency. Patient denies nausea vomiting or diarrhea. On 02/11/2024 patient was seen and examined in the ICU, he is alert and oriented x 3 in no apparent distress, he is still complaining of left-sided chest wall pain site of his chest tube, otherwise he denies any complaints there is no fever or chills no headache or dizziness no chest pain no shortness of breath no cough no nausea or vomiting no abdominal pain no diarrhea no blood in the stools no burning with urination no frequency or urgency and no hematuria, patient has very low oral intake, he was encouraged in length in regard to increasing his diet and taking some protein supplements, albumin is low to 1.7, alternatively patient may need a Dobbhoff tube with enteral feeding. Will continue to follow closely On 02/12/2024 patient is alert and oriented x 3 remains in the ICU. Patient remains on IV Lasix patient having increased lower extremity edema. Appetite remains poor. Current vital signs temp 98.7, heart rate 89, respiratory rate 19, blood pressure 88/52 with a pulse ox of 93% on Airvo 60%. Patient denies chest pain or shortness of breath. Patient denies nausea vomiting or diarrhea. Patient denies any urinary burning or frequency On 02/13/2024 patient's alert and oriented remains in the intensive care unit. Remains on IV Lasix. Patient also remains on IV Zosyn. Multiple consults following. Patient remains on Airvo 60% and patient was started on Levophed for pressure support On 02/14/2024 patient is alert and oriented x 3. Edema has slightly improved. Patient remains on Levophed. Current vital signs temp 98.0, heart rate 94, r espiratory rate 19, blood pressure 102/73 with a pulse ox of 96% on Airvo 60%. Hemoglobin 8.9, white blood cell 28.6, creatinine 1.14 bun 33 On 02/15/2024 patient is alert and oriented x 3 patient remains in the intensive care unit Levophed getting weaned down per nursing staff chest tube has been removed. Patient remains on Airvo. Current vital signs temp 98.2, heart 81, respiratory rate 15, blood pressure 105/67 with a pulse ox of 112/64. Pulse ox 94% with an Airvo FiO2 of 50%. Patient denies chest pain or shortness of breath. Patient denies nausea vomiting or diarrhea. Patient denies any urinary burning or frequency. On 02/16/2024 patient was seen and examined in the ICU he is alert and oriented x 3 in no apparent distress there is no fever or chills no headache or dizziness no chest pain no shortness of breath, at rest patient is maintained on Airvo, high flow oxygen, no nausea or vomiting no abdominal pain no diarrhea no urinary symptoms. On 02/17/2024 patient remains in the ICU alert and oriented x 3. Patient is down to high flow and Levophed has been turned off. Per critical care will continue to monitor patient in the ICU for an additional 24 hours. Current temp 97.4, heart rate 87, respiratory rate 17, blood pressure 114/62 with a pulse ox of 95% on high flow 6 L. Patient denies chest pain or shortness of breath. Patient denies nausea vomiting or diarrhea. Patient denies any urinary burning or frequency On 02/18/2024 patient was seen and examined on the telemetry floor, he is alert and oriented x 3 in no apparent distress, he is still complaining of shortness of breath , he is maintained on oxygen 4 L via nasal cannula , he is complaining of chest wall pain site of his old chest tube , otherwise he denies any complaints at this time , there is no fever or chills, no headache or dizziness no chest pain he has occasional cough no nausea or vomiting no abdominal pain no diarrhea and no urinary symptoms, patient has been bedbound for several days, he will need to transfer to rehab when medically clear. On 02/19/2024 patient is alert and oriented x 3. At this time patient denies chest pain or shortness of breath. Patient denies nausea vomiting or diarrhea. Patient denies any urinary burning and frequency. Current vital signs temp 97.3 , heart rate 77, respiratory rate 17, blood pressure 110/74 with a pulse ox of 94% on 4 L On 02/20/2024 patient was seen and examined on the medical floor he is alert and oriented x 3 in no apparent distress he is maintained on oxygen 4 L via nasal cannula, he denies any chest pain or shortness of breath at rest vital exam reveals a temperature of 97.4 pulse 85 respiration 13 blood pressure 108/74 pulse ox 95% on 4 L nasal cannula, white blood count 29.95 hemoglobin 9.9 platelet count 237 BUN 37.5 creatinine 1.2, medication and labs were reviewed continue with current management will recheck in a.m. On 02/21/2024 patient is alert and oriented 3. Patient reports some increased shortness of breath intubated have been adjusted per ID will order chest x- ray.current vital signs temp 97.3, heart rate 97, respiratory rate 20, blood pressure 99/60 with pulse ox 92% on 4 L. Infectious disease, pulmonary and surgical services are following On 02/22/2024 patient is alert and oriented x 3. Patient reports some improvement. Chest x-ray showing interstitial infiltrate. Pulmonary and infec tious disease services are following. Current vital signs temp 97.6, heart rate 89, respiratory rate 20, blood pressure 97/66 with a pulse ox of 95% on 4 L patient denies chest pain. Patient denies nausea vomiting or diarrhea. Patient denies any urinary burning or frequency. On 02/23/2024 patient was seen and examined on the medical floor he is alert and oriented x 3 in no apparent distress he is still complaining of cough and shortness of breath otherwise he denies any complaints there is no fever or chills no headache or dizziness no chest pain no nausea or vomiting no abdominal pain no diarrhea and no urinary symptoms Objective - Vital Signs Vital signs: Vital Signs Temp 98.0 F 02/23/24 01:11 Pulse 76 02/23/24 01:11 Resp 18 02/23/24 01:11 BP 92/68 12/19/24 01:11 Pulse Ox 98 02/23/24 01:11 FiO2 40 02/16/24 12:48 Intake & Output 02/22/24 02/22/24 02/23/24 06:59 18:59 06:59 Output Total 1450 600 Balance -1450 -600 Weight 60.5 kg 66 kg Output: Urine 1450 600 Other: Voiding Method Indwelling Catheter Indwelling Catheter # Voids 900 # Bowel Movements 1 ABP, PAP, CO, CI - Last Documented Arterial Blood Pressure 122/71 - Exam In general patient is alert and oriented x 3 in no distress HEENT head normocephalic and atraumatic Neck is supple no JVD no goiter no lymphadenopathy no carotid bruit Chest examination reveals a scattered crackles bilaterally no wheezing Cardiac exam reveals irregular heart sounds S1 and S2 with tachycardia no gallops no murmurs Abdomen is soft nontender no organomegaly with normal bowel sounds Extremity exam reveals no edema no cyanosis or clubbing Neurological examination reveals no gross focal deficits - Labs CBC & Chem 7: 02/24/24 03:10 02/24/24 03:10 Labs: Abnormal Lab Results - Last 24 Hours (Table) 02/22/24 02/22/24 Range/Units 06:50 21:03 WBC 20.53 H (4.50-10.00) X 10*3/uL RBC 2.97 L (4.40-5.60) X 10*6/uL Hgb 9.7 L (13.0-17.0) g/dL Hct 31.4 L (39.6-50.0) % MCV 105.7 H (80.0-97.0) FL MCH 32.7 H (27.0-32.0) pg MCHC 30.9 L (32.0-37.0) g/dL RDW 25.1 H (11.5-14.5) % MPV 14.9 H (9.5-12.2) FL Immature Gran # 0.61 H (0.00-0.04) X 10*3/uL Neutrophils # 17.82 H (1.80-7.70) X 10*3/uL Lymphocytes # 0.80 L (0.90-5.00) X 10*3/uL Monocytes # 1.25 H (0.20-1.00) X 10*3/uL Eosinophils # 0 L (0.04-0.35) X 10*3/uL NRBC/100 WBC Diff 0.04 H (0.00-0.01) X 10*3/uL Macrocytosis (manual) 2+ A (None Seen) Target Cells 2+ A (None Seen) POC Glucose (mg/dL) 114 H (70-110) mg/dL Assessment and Plan Assessment: 1. Pneumonia with sepsis as evident by elevated lactic acid and leukocytosis 2. Acute kidney injury secondary to sepsis and dehydration, kidney function improved significantly since admission 3. History of atrial fibrillation maintained on Eliquis, with episodes of rapid ventricular response during this presentation 4. History of CHF 5. Acute hypoxic respiratory failure requiring high flow oxygen supplements pulmonary are following 6. Elevated liver enzymes we will hold statin at this time and recheck 7. Positive blood culture for Staphylococcus aureus, consultation for infectious disease was initiated 8. COVID-19 positive 9. Left-sided pneumothorax requiring left-sided chest tube insertion 10. GI bleed. Surgical services consulted Eliquis currently on hold 11. Hypotension secondary to above patient currently in ICU may require vasopressors for blood pressure support DVT prophylaxis Eliquis. GI prophylaxis Protonix Pulmonary services consulted, infectious disease cardiology consultation requested echocardiogram ordered Blood and sputum cultures ordered Repeat labs ordered
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
[2024-02-24 16:43] LABS: Glucose,Whole Blood 111 mg/dL (70-110)
[2024-02-24 20:22] LABS: Glucose,Whole Blood 226 mg/dL (70-110)
[2024-02-25 06:46] LABS: Glucose,Whole Blood 84 mg/dL (70-110)
--- NOTE | 2024-02-25 09:41 | P.PN ---
Subjective Progress Note Date: 02/25/24 Rodriguez Jackson, is a 73-year-old male who presented to [facility] emergency room with a chief complaint of worsening shortness of breath, patient stated that he fell 2 weeks ago, he was complaining of left-sided rib pain especially when he takes a deep breath. He was also complaining of cough otherwise he denies any complaints. He was evaluated in the emergency room vital examination on presentation revealed a temperature of 98.8 pulse 118 respiration 18 blood pressure 130/78 pulse ox 97% on 10 L nonrebreather mask Laboratory data revealed a white blood count of 20.8 hemoglobin 12.2 platelet count 310 sodium 134 potassium 3.4 chloride 102 BUN 51 creatinine 1.77 AST 188 ALT 135 troponin 0.012 Testing in the emergency room revealed EKG done in the emergency room revealed atrial fibrillation with rapid ventricular response, chest x-ray revealed patchy left and right lower lobe infiltrates worse on the left. Patient was admitted to medical floor for further evaluation and treatment, pulmonary consultation and cardiology consultation were requested. On 01/23/2024 patient was seen and examined on the medical floor he is alert and oriented x 3 in no apparent distress he reports mild improvement in his shortness of breath, he is still complaining of cough and complaining of chest wall pain otherwise he denies any complaints there is no fever or chills no headache or dizziness no nausea or vomiting no abdominal pain no diarrhea no blood in the stools no burning with urination no frequency or urgency and no hematuria. His temperature is 98.8 pulse 108 respiration 26 blood pressure 138/92 pulse ox 91% on 11 L high flow cannula, white blood count is 26.7 hemoglobin 12.8 platelet count 281 BUN 31 creatinine 1.04 On 01/24/2024 patient is alert and oriented x 3. Patient still having some significant shortness of breath currently on 11 L nasal cannula. Cardiology, pu lmonary and infectious disease services are following. Patient remains on Cardizem drip. Patient remains on IV steroids and IV cefazolin. White blood cell 35.7, creatinine 1.18 bun 40. Current vital signs temp 97.8, heart 76, respiratory rate 26, blood pressure 112/73 with a pulse ox of 91% on 11 L On 01/25/2024 patient is alert and oriented x 3 patient reports some improvement with shortness of breath. Pulmonary cardiology and infectious disease services are following. Cardizem dean has been DC'd patient transition to p.o. Cardizekatey per cardiology continue IV antibiotics and steroids at this time.. Current vital signs temp 96.4, heart rate 74, respiratory rate 18, blood pressure 118/83 with a pulse ox of 97% on 10 L high flow. On 01/26/2024 patient was seen and examined on the medical floor he is alert and oriented x 3 in mild respiratory distress, he is maintained on high flow oxygen of 11 L/min, he is still complaining of cough and chest discomfort otherwise he denies any complaints, there is no fever or chills no headache or dizziness no chest pain no nausea or vomiting no abdominal pain no diarrhea no blood in the stools no burning with urination no frequency or urgency and no hematuria. Testing for COVID was positive yesterday. Pulmonary and infectious disease are following. On 01/27/2024 patient is alert and oriented x 3 patient continued to having increase oxygen demands. Per nursing staff pulmonary services were notified patient currently on high flow [address] scan of chest this morning which showed diffuse groundglass opacities and correlation for atypical pneumonia. Patient remains on IV Kefzol and prednisone. Pulmonary and infectious disease services following. Cardiology also following On 01/28/2024 patient is alert and oriented x 3. Patient at this time is resting comfortably in bed. Patient remains on Airvo 60%. Temp 97.6, heart rate 95, respiratory rate 24, blood pressure 100/67. Pulmonary cardiology and infectious disease are following patient remains on IV Kefzol and Solu-Medrol On 01/29/2024 patient was seen and examined on the medical floor he is alert and oriented x 3 in no apparent distress,he is still maintained on high flow oxygen, he is complaining of generalized weakness and complaining of constipation he has very poor oral intake, there is no fever or chills no headache or dizziness no chest pain, he has shortness of breath with any activity no palpitation he has continuous cough no nausea or vomiting no abdominal pain no diarrhea and no urinary symptoms. On 01/30/2024 patient was seen and examined in the ICU, he is alert responsive in no apparent distress maintained on high flow oxygen via Airvo, he was transferred to ICU due to worsening shortness of breath, chest x-ray today revealed interval development of a large left-sided pneumothorax estimated at 40%, he underwent chest tube placement, on the left. His vital exam reveals a temperature of 97.5 pulse 108 respiration 33 blood pressure 133/82 pulse ox is 98% on high flow cannula with FiO2 of 50% On 01/31/2024 patient remains in the intensive care unit. Chest tube in place. Current vital signs temp 97.9, heart rate 84, respiratory rate 23, blood pressure 102/71 with a pulse ox of 97% on high flow of 40%. Patient remains s hort of breath. Patient denies chest pain. Patient denies nausea vomiting or diarrhea. Patient denies any urinary burning or frequency On 02/01/2024 patient is alert and oriented x 3. Patient remains in the intensive care unit. Tube remains in place. Current vital signs temp 97.7, heart rate 79, respiratory rate 24, blood pressure 117/76 with a pulse ox of 100% on 6 L high flow. Patient reports some improvement with shortness of breath. Patient denies chest pain. Patient denies nausea vomiting or diarrhea. On 02/02/2024 patient was seen and examined in the ICU, he is alert and oriented x 3 in no apparent distress, he is complaining of discomfort at the chest tube site, and complaining of shortness of breath otherwise he denies any complaints there is no fever or chills no headache or dizziness, no chest pain, he has occasional cough no nausea or vomiting no abdominal pain no diarrhea no urinary symptoms. Temperature is 97.4 pulse 90 respiration 23 blood pressure 106/78 pulse ox 95% on 4 L nasal cannula, white blood count 45.7 hemoglobin 11.1 platelet count 199 BUN 45 creatinine 0.89 On 02/03/2024 patient remains in the ICU alert and oriented x 3. Patient still has chest tube complaining of some discomfort at site. Speech services at bedside assessing swallow still recommending nectar thick liquids. Current vital signs temp 97.6, heart rate 93, respiratory rate 21. Patient denies chest pain or shortness of breath. Patient denies nausea vomiting or diarrhea. Patient denies any urinary burning and frequency. On 02/04/2024 patient was seen and examined in the intensive care unit, he is alert and oriented in no apparent distress, he is complaining of pain in the chest wall site of the chest tube otherwise he denies any complaints, there is no fever or chills no headache or dizziness no chest pain no shortness of breath no cough no nausea or vomiting no abdominal pain no diarrhea no urinary symptoms, temperature is 97.5 pulse 89 respiration 16 blood pressure 108/68 pulse ox 96% on 4 L nasal cannula. His white blood count is 28.9 hemoglobin 11.0 platelet count 147 sodium 136 potassium 3.9 chloride 111 CO2 23 BUN 30 creatinine 0.94 On 02/05/2024 patient remains in the intensive care unit alert and oriented 3. Patient is down to 2 L. Chest tube remains in place.Patient's appetite remains poor patient has been started on Megace. Will consult when necessary for possible discharge planning. Patient denies chest pain or shortness breath. Patient denies nausea vomiting or diarrhea. Patient denies any urinary burning or frequency. Current vital signs temp 97.6, heart rate 80, respiratory rate 19,, Blood pressure 98/70 with pulse ox 95% on 2 L On 02/06/2024 patient was seen and examined on the telemetry floor, he is alert and oriented x 3. Current vital signs temp 97.9, heart rate 93, respiratory rate 18. blood pressure 122/60 Patient denies chest pain or shortness of breath. Patient denies nausea vomiting or diarrhea. Patient denies any urinary burning and frequency. On 03/05/2024 patient is alert and oriented x 3. Patient complaining about difficulty sleeping melatonin added. Discharge planning to [facility]. Patient remain s with chest tube awaiting further recommendations from pulmonary services. Current vital signs temp 97.3, heart rate 78, respiratory rate 18, blood pressure 133/80 with a pulse ox of 93% on 4 L. Patient denies chest pain or shortness of breath. Patient denies nausea vomiting or diarrhea. Patient denies any urinary burning or frequency On 02/08/2024 patient is alert and oriented x 3. Cardiothoracic surgery was consulted due to left-sided pneumothorax with chest tube placement with continuous airleak at this time recommendations to continue wall suction and will monitor. Patient denies chest pain or shortness of breath. Patient denies nausea vomiting or diarrhea. Patient denies any urinary burning or frequency. Current temp 97.3, heart rate 68, respiratory rate 18, blood pressure 96/63 with a pulse ox of 92% on 4 L On 02/09/2024 patient is alert and oriented x 3. Patient was transferred to the intensive care unit last night due to large bloody bowel movement and hypotension. At this time patient's Eliquis has been on hold. Surgical services have been consulted. Patient denies chest pain or shortness of breath. Patient denies nausea vomiting or diarrhea. Patient denies any urinary burning or frequency. Patient may require norepinephrine for blood pressure support co ntinue ICU management at this time. Critical care services following On 02/10/2024 patient is alert and oriented x 3. Per nursing staff patient has had no further episodes of large-volume bloody bowel movement. Patient still having some hypotension. Patient was evaluated by surgical services Eliquis remains on hold hemoglobin remained stable continue monitoring at this time. Patient also being followed by cardiothoracic surgery chest tube remains to suction at this time. Patient denies chest pain or shortness of breath. Patient denies any urinary burning or frequency. Patient denies nausea vomiting or diarrhea. On 02/11/2024 patient was seen and examined in the ICU, he is alert and oriented x 3 in no apparent distress, he is still complaining of left-sided chest wall pain site of his chest tube, otherwise he denies any complaints there is no fever or chills no headache or dizziness no chest pain no shortness of breath no cough no nausea or vomiting no abdominal pain no diarrhea no blood in the stools no burning with urination no frequency or urgency and no hematuria, patient has very low oral intake, he was encouraged in length in regard to increasing his diet and taking some protein supplements, albumin is low to 1.7, alternatively patient may need a Dobbhoff tube with enteral feeding. Will continue to follow closely On 02/12/2024 patient is alert and oriented x 3 remains in the ICU. Patient remains on IV Lasix patient having increased lower extremity edema. Appetite remains poor. Current vital signs temp 98.7, heart rate 89, respiratory rate 19, blood pressure 88/52 with a pulse ox of 93% on Airvo 60%. Patient denies chest pain or shortness of breath. Patient denies nausea vomiting or diarrhea. Patient denies any urinary burning or frequency On 02/13/2024 patient's alert and oriented remains in the intensive care unit. Remains on IV Lasix. Patient also remains on IV Zosyn. Multiple consults following. Patient remains on Airvo 60% and patient was started on Levophed for pressure support On 02/14/2024 patient is alert and oriented x 3. Edema has slightly improved. Patient remains on Levophed. Current vital signs temp 98.0, heart rate 94, r espiratory rate 19, blood pressure 102/73 with a pulse ox of 96% on Airvo 60%. Hemoglobin 8.9, white blood cell 28.6, creatinine 1.14 bun 33 On 02/15/2024 patient is alert and oriented x 3 patient remains in the intensive care unit Levophed getting weaned down per nursing staff chest tube has been removed. Patient remains on Airvo. Current vital signs temp 98.2, heart 81, respiratory rate 15, blood pressure 105/67 with a pulse ox of 112/64. Pulse ox 94% with an Airvo FiO2 of 50%. Patient denies chest pain or shortness of breath. Patient denies nausea vomiting or diarrhea. Patient denies any urinary burning or frequency. On 02/16/2024 patient was seen and examined in the ICU he is alert and oriented x 3 in no apparent distress there is no fever or chills no headache or dizziness no chest pain no shortness of breath, at rest patient is maintained on Airvo, high flow oxygen, no nausea or vomiting no abdominal pain no diarrhea no urinary symptoms. On 02/17/2024 patient remains in the ICU alert and oriented x 3. Patient is down to high flow and Levophed has been turned off. Per critical care will continue to monitor patient in the ICU for an additional 24 hours. Current temp 97.4, heart rate 87, respiratory rate 17, blood pressure 114/62 with a pulse ox of 95% on high flow 6 L. Patient denies chest pain or shortness of breath. Patient denies nausea vomiting or diarrhea. Patient denies any urinary burning or frequency On 02/18/2024 patient was seen and examined on the telemetry floor, he is alert and oriented x 3 in no apparent distress, he is still complaining of shortness of breath , he is maintained on oxygen 4 L via nasal cannula , he is complaining of chest wall pain site of his old chest tube , otherwise he denies any complaints at this time , there is no fever or chills, no headache or dizziness no chest pain he has occasional cough no nausea or vomiting no abdominal pain no diarrhea and no urinary symptoms, patient has been bedbound for several days, he will need to transfer to rehab when medically clear. On 02/19/2024 patient is alert and oriented x 3. At this time patient denies chest pain or shortness of breath. Patient denies nausea vomiting or diarrhea. Patient denies any urinary burning and frequency. Current vital signs temp 97.3 , heart rate 77, respiratory rate 17, blood pressure 110/74 with a pulse ox of 94% on 4 L On 02/20/2024 patient was seen and examined on the medical floor he is alert and oriented x 3 in no apparent distress he is maintained on oxygen 4 L via nasal cannula, he denies any chest pain or shortness of breath at rest vital exam reveals a temperature of 97.4 pulse 85 respiration 13 blood pressure 108/74 pulse ox 95% on 4 L nasal cannula, white blood count 29.95 hemoglobin 9.9 platelet count 237 BUN 37.5 creatinine 1.2, medication and labs were reviewed continue with current management will recheck in a.m. On 02/21/2024 patient is alert and oriented 3. Patient reports some increased shortness of breath intubated have been adjusted per ID will order chest x- ray.current vital signs temp 97.3, heart rate 97, respiratory rate 20, blood pressure 99/60 with pulse ox 92% on 4 L. Infectious disease, pulmonary and surgical services are following On 02/22/2024 patient is alert and oriented x 3. Patient reports some improvement. Chest x-ray showing interstitial infiltrate. Pulmonary and infec tious disease services are following. Current vital signs temp 97.6, heart rate 89, respiratory rate 20, blood pressure 97/66 with a pulse ox of 95% on 4 L patient denies chest pain. Patient denies nausea vomiting or diarrhea. Patient denies any urinary burning or frequency. On 02/23/2024 patient was seen and examined on the medical floor he is alert and oriented x 3 in no apparent distress he is still complaining of cough and shortness of breath otherwise he denies any complaints there is no fever or chills no headache or dizziness no chest pain no nausea or vomiting no abdominal pain no diarrhea and no urinary symptoms On 02/25/2024 patient is alert and oriented x 3. Patient still having some shortness of breath. Patient remains on Bactrim, IV Rocephin and Diflucan. Pulmonary and infectious disease services are following. Current vital signs temp 97.0, heart rate 94, respiratory rate 16, blood pressure 90/48 with a pulse ox of 94% on 4 L Objective - Vital Signs Vital signs: Vital Signs Temp 97.0 F L 02/25/24 07:26 Pulse 94 02/25/24 07:26 Resp 16 02/25/24 07:26 BP 90/48 02/25/24 07:26 Pulse Ox 94 L 02/25/24 08:13 FiO2 40 02/16/24 12:48 Intake & Output 02/24/24 02/25/24 02/25/24 18:59 06:59 18:59 Output Total 800 225 Balance -800 -225 Weight 71.2 kg Output: Urine 800 225 Other: Voiding Method Indwelling Catheter # Bowel Movements 1 ABP, PAP, CO, CI - Last Documented Arterial Blood Pressure 122/71 - Exam In general patient is alert and oriented x 3 in no distress HEENT head normocephalic and atraumatic Neck is supple no JVD no goiter no lymphadenopathy no carotid bruit Chest examination reveals a scattered crackles bilaterally no wheezing Cardiac exam reveals irregular heart sounds S1 and S2 with tachycardia no gallops no murmurs Abdomen is soft nontender no organomegaly with normal bowel sounds Extremity exam reveals no edema no cyanosis or clubbing Neurological examination reveals no gross focal deficits - Labs CBC & Chem 7: 02/24/24 03:10 02/24/24 03:10 Labs: Abnormal Lab Results - Last 24 Hours (Table) 02/24/24 02/24/24 02/24/24 Range/Units 03:10 03:10 16:41 WBC 23.81 H (4.50-10.00) X 10*3/uL RBC 2.69 L (4.40-5.60) X 10*6/uL Hgb 9.0 L (13.0-17.0) g/dL Hct 28.3 L (39.6-50.0) % MCV 105.2 H (80.0-97.0) FL MCH 33.5 H (27.0-32.0) pg MCHC 31.8 L (32.0-37.0) g/dL RDW 24.1 H (11.5-14.5) % MPV 14.7 H (9.5-12.2) FL Immature Gran # 0.45 H (0.00-0.04) X 10*3/uL Neutrophils # 20.65 H (1.80-7.70) X 10*3/uL Monocytes # 1.62 H (0.20-1.00) X 10*3/uL Eosinophils # 0 L (0.04-0.35) X 10*3/uL NRBC/100 WBC Diff 0.02 H (0.00-0.01) X 10*3/uL Macrocytosis (manual) 2+ A (None Seen) BUN 32.3 H (9.0-27.0) mg/dL BUN/Creatinine Ratio 32.30 H (12.00-20.00) Ratio Glucose 66 L (70-110) mg/dL POC Glucose (mg/dL) 111 H (70-110) mg/dL Calcium 7.2 L (8.7-10.3) mg/dL AST 67 H (14-35) U/L ALT 78 H (10-49) U/L Alkaline Phosphatase 298 H (41-126) U/L Total Protein 4.4 L (6.2-8.2) g/dL Albumin 2.0 L (3.8-4.9) g/dL Albumin/Globulin Ratio 0.83 L (1.60-3.17) Ratio 02/23/ Range/Units 20:20 WBC (4.50-10.00) X 10*3/uL RBC (4.40-5.60) X 10*6/uL Hgb (13.0-17.0) g/dL Hct (39.6-50.0) % MCV (80.0-97.0) FL MCH (27.0-32.0) pg MCHC (32.0-37.0) g/dL RDW (11.5-14.5) % MPV (9.5-12.2) FL Immature Gran # (0.00-0.04) X 10*3/uL Neutrophils # (1.80-7.70) X 10*3/uL Monocytes # (0.20-1.00) X 10*3/uL Eosinophils # (0.04-0.35) X 10*3/uL NRBC/100 WBC Diff (0.00-0.01) X 10*3/uL Macrocytosis (manual) (None Seen) BUN (9.0-27.0) mg/dL BUN/Creatinine Ratio (12.00-20.00) Ratio Glucose (70-110) mg/dL POC Glucose (mg/dL) 226 H (70-110) mg/dL Calcium (8.7-10.3) mg/dL AST (14-35) U/L ALT (10-49) U/L Alkaline Phosphatase (41-126) U/L Total Protein (6.2-8.2) g/dL Albumin (3.8-4.9) g/dL Albumin/Globulin Ratio (1.60-3.17) Ratio Assessment and Plan Assessment: 1. Pneumonia with sepsis as evident by elevated lactic acid and leukocytosis 2. Acute kidney injury secondary to sepsis and dehydration, kidney function improved significantly since admission 3. History of atrial fibrillation maintained on Eliquis, with episodes of rapid ventricular response during this presentation 4. History of CHF 5. Acute hypoxic respiratory failure requiring high flow oxygen supplements pulmonary are following 6. Elevated liver enzymes we will hold statin at this time and recheck 7. Positive blood culture for Staphylococcus aureus, consultation for infectious disease was initiated 8. COVID-19 positive 9. Left-sided pneumothorax requiring left-sided chest tube insertion 10. GI bleed. Surgical services consulted Eliquis currently on hold 11. Hypotension secondary to above patient currently in ICU may require vasopressors for blood pressure support DVT prophylaxis Eliquis. GI prophylaxis Protonix Pulmonary services consulted, infectious disease cardiology consultation requested echocardiogram ordered Blood and sputum cultures ordered Repeat labs ordered
--- NOTE | 2024-02-25 10:38 | P.PN ---
Subjective Progress Note Date: 02/25/24 NAEON. No N/V. No F/C. No SOB or CP. No abdominal pain. Endorses flatus and BM. No melena or hematochezia. Objective - Vital Signs Vital signs: Vital Signs Temp 97.0 F L 02/25/24 07:26 Pulse 95 02/25/24 09:54 Resp 16 02/25/24 07:26 BP 83/57 02/25/24 09:54 Pulse Ox 94 L 02/25/24 08:13 FiO2 40 02/16/24 12:48 Intake & Output 02/24/24 02/25/24 02/25/24 18:59 06:59 18:59 Output Total 800 225 Balance -800 -225 Weight 71.2 kg Output: Urine 800 225 Other: Voiding Method Indwelling Catheter # Bowel Movements 1 ABP, PAP, CO, CI - Last Documented Arterial Blood Pressure 122/71 - Exam Gen: AxO, NAD Pulm: non-labored respirations Abd: soft, non-tender, non-distended. No guarding/rebound/rigidity Extrem: no edema seen - Labs CBC & Chem 7: 02/24/24 03:10 02/24/24 03:10 Labs: Abnormal Lab Results - Last 24 Hours (Table) 02/24/24 02/24/24 02/24/24 Range/Units 03:10 16:41 20:20 WBC 23.81 H (4.50-10.00) X 10*3/uL RBC 2.69 L (4.40-5.60) X 10*6/uL Hgb 9.0 L (13.0-17.0) g/dL Hct 28.3 L (39.6-50.0) % MCV 105.2 H (80.0-97.0) FL MCH 33.5 H (27.0-32.0) pg MCHC 31.8 L (32.0-37.0) g/dL RDW 24.1 H (11.5-14.5) % MPV 14.7 H (9.5-12.2) FL Immature Gran # 0.45 H (0.00-0.04) X 10*3/uL Neutrophils # 20.65 H (1.80-7.70) X 10*3/uL Monocytes # 1.62 H (0.20-1.00) X 10*3/uL Eosinophils # 0 L (0.04-0.35) X 10*3/uL NRBC/100 WBC Diff 0.02 H (0.00-0.01) X 10*3/uL Macrocytosis (manual) 2+ A (None Seen) POC Glucose (mg/dL) 111 H 226 H (70-110) mg/dL Assessment and Plan Assessment: Patient is a 73 year old male who presents with GIB, now resolved Plan: -Diet as tolerated -IVF hydration -Trend Hb -PRN pain and nausea control -No acute surgical intervention Michael Beal M.D. General Surgery
[2024-02-25 10:57] LABS: ALT 85 U/L (10-49); AST 75 U/L (14-35); Albumin 1.9 g/dL (3.8-4.9); Albumin/Globulin Ratio 0.83 Ratio (1.60-3.17); Alkaline Phosphatase 361 U/L (41-126); Blood Urea Nitrogen 32.8 mg/dL (9.0-27.0); Calcium 7.2 mg/dL (8.7-10.3); Carbon Dioxide 27.7 mmol/L (21.6-31.8); Chloride 98 mmol/L (96-109); Globulin 2.3 g/dL (1.6-3.3); Glucose 64 mg/dL (70-110); Potassium 3.8 mmol/L (3.5-5.5); Sodium 136 mmol/L (135-145); Total Bilirubin 0.5 mg/dL (0.3-1.2); Total Protein 4.2 g/dL (6.2-8.2)
[2024-02-25 10:58] LABS: Basophils # (A) 0.04 X 10*3/uL (0.00-0.10); Basophils % (A) 0.2 %; Eosinophils # (A) 0 X 10*3/uL (0.04-0.35); Eosinophils % (A) 0 %; HCT 27.3 % (39.6-50.0); HGB 8.6 g/dL (13.0-17.0); Lymphocytes # (A) 1.11 X 10*3/uL (0.90-5.00); Lymphocytes % (A) 4.8 %; MCH 33.6 pg (27.0-32.0); MCHC 31.5 g/dL (32.0-37.0); MCV 106.6 FL (80.0-97.0); Mean Platelet Volume 14.5 FL (9.5-12.2); Monocytes % (A) 7.4 %; NRBC Per 100 WBC 0.02 X 10*3/uL (0.00-0.01); Neutrophils # (A) 19.78 X 10*3/uL (1.80-7.70); Neutrophils % (A) 85.9 %; Platelet Count 227 X 10*3/uL (140-440); RBC 2.56 X 10*6/uL (4.40-5.60); RDW 23.9 % (11.5-14.5); WBC 23.02 X 10*3/uL (4.50-10.00)
[2024-02-25 11:30] LABS: Glucose,Whole Blood 132 mg/dL (70-110)
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
--- NOTE | 2024-02-25 15:11 | P.PN ---
Subjective Progress Note Date: 02/24/24 Principal diagnosis: Reason for follow-up is left-sided pneumonia and MSSA bacteremia Patient is a 73-year-old with a past medical history significant for atrial fibrillation heart failure , close head injury patient presenting to the hospital for evaluation of increasing shortness of breath left lower chest pain, patient has been diagnosed with left-sided pneumonia and did have a positive blood culture with MSSA prompted this consultation.Patient did have a chest x-ray morning of 01/30/2024 with evidence of left-sided pneumothorax in this patient who status post chest tube placement on 01/30/2024 by pulmonary On today's evaluation that is 02/24/2024, the patient continues to be afebrile, the patient is on 4 L nasal cannula oxygen and breathing comfortably, the Pt denies having any chest pain or any worsening cough, the patient denies having any abdominal pain no vomiting or any diarrhea has been reported by the nursing staff. Patient white count is 23.81 creatinine is 1.0 Objective - Vital Signs Vital signs: Vital Signs Temp 97.6 F 02/24/24 07:10 Pulse 101 H 02/24/24 10:41 Resp 16 02/24/24 07:10 BP 94/61 02/24/24 10:41 Pulse Ox 93 L 02/24/24 09:14 FiO2 40 02/16/24 12:48 Intake & Output 02/23/24 02/24/24 02/24/24 18:59 06:59 18:59 Output Total 800 1100 Balance -800 -1100 Weight 66 kg Output: Urine 800 1100 Other: Voiding Method Indwelling Catheter Indwelling Catheter Indwelling Catheter # Bowel Movements 1 ABP, PAP, CO, CI - Last Documented Arterial Blood Pressure 122/71 - Exam GENERAL DESCRIPTION: An elderly male lying in bed in no distress RESPIRATORY SYSTEM: Unlabored breathing , close bedside left side HEART: S1 S2 regular rate and rhythm , ABDOMEN: Soft , no tenderness EXTREMITIES: No edema feet - Labs CBC & Chem 7: 02/25/24 03:19 02/25/24 03:19 Labs: Abnormal Lab Results - Last 24 Hours (Table) 02/23/24 02/23/24 02/24/24 Range/Units 16:49 20:43 03:10 WBC 23.81 H (4.50-10.00) X 10*3/uL RBC 2.69 L (4.40-5.60) X 10*6/uL Hgb 9.0 L (13.0-17.0) g/dL Hct 28.3 L (39.6-50.0) % MCV 105.2 H (80.0-97.0) FL MCH 33.5 H (27.0-32.0) pg MCHC 31.8 L (32.0-37.0) g/dL RDW 24.1 H (11.5-14.5) % MPV 14.7 H (9.5-12.2) FL Immature Gran # 0.45 H (0.00-0.04) X 10*3/uL Neutrophils # 20.65 H (1.80-7.70) X 10*3/uL Monocytes # 1.62 H (0.20-1.00) X 10*3/uL Eosinophils # 0 L (0.04-0.35) X 10*3/uL NRBC/100 WBC Diff 0.02 H (0.00-0.01) X 10*3/uL Macrocytosis (manual) 2+ A (None Seen) BUN (9.0-27.0) mg/dL BUN/Creatinine Ratio (12.00-20.00) Ratio Glucose (70-110) mg/dL POC Glucose (mg/dL) 188 H 170 H (70-110) mg/dL Calcium (8.7-10.3) mg/dL AST (14-35) U/L ALT (10-49) U/L Alkaline Phosphatase (41-126) U/L Total Protein (6.2-8.2) g/dL Albumin (3.8-4.9) g/dL Albumin/Globulin Ratio (1.60-3.17) Ratio 02/24/24 02/24/24 Range/Units 03:10 06:19 WBC (4.50-10.00) X 10*3/uL RBC (4.40-5.60) X 10*6/uL Hgb (13.0-17.0) g/dL Hct (39.6-50.0) % MCV (80.0-97.0) FL MCH (27.0-32.0) pg MCHC (32.0-37.0) g/dL RDW (11.5-14.5) % MPV (9.5-12.2) FL Immature Gran # (0.00-0.04) X 10*3/uL Neutrophils # (1.80-7.70) X 10*3/uL Monocytes # (0.20-1.00) X 10*3/uL Eosinophils # (0.04-0.35) X 10*3/uL NRBC/100 WBC Diff (0.00-0.01) X 10*3/uL Macrocytosis (manual) (None Seen) BUN 32.3 H (9.0-27.0) mg/dL BUN/Creatinine Ratio 32.30 H (12.00-20.00) Ratio Glucose 66 L (70-110) mg/dL POC Glucose (mg/dL) 174 H (70-110) mg/dL Calcium 7.2 L (8.7-10.3) mg/dL AST 67 H (14-35) U/L ALT 78 H (10-49) U/L Alkaline Phosphatase 298 H (41-126) U/L Total Protein 4.4 L (6.2-8.2) g/dL Albumin 2.0 L (3.8-4.9) g/dL Albumin/Globulin Ratio 0.83 L (1.60-3.17) Ratio Assessment and Plan (1) Bacteremia due to methicillin susceptible Staphylococcus aureus (MSSA) Current Visit: Yes Status: Acute Code(s): R78.81 - BACTEREMIA; B95.61 - METHICILLIN SUSCEP STAPH INFCT CAUSING DIS CLASSD ELSWHR SNOMED Code(s): 357868788 (2) Pneumonia Current Visit: Yes Status: Acute Code(s): J18.9 - PNEUMONIA, UNSPECIFIED ORGANISM SNOMED Code(s): 240047406 (3) Leukocytosis Current Visit: Yes Status: Acute Code(s): D72.829 - ELEVATED WHITE BLOOD CELL COUNT, UNSPECIFIED SNOMED Code(s): 483106202 Plan: 1patient presented to hospital with sepsis in this patient who did have leukocytosis tachycardia meeting criteria for SIRS source is left lower lobe pneumonia 2-patient with MSSA bacteremia source likely pneumonia, blood culture repeat has been negative so far 3-patient CT of the chest did not show any empyema echocardiogram did not show any valvular abnormalities repeat blood culture negative 4patient did have complication of left-sided pneumothorax s/p is chest tube placement. Patient did have persistent leak CT surgery is closely following the patient considered to be high risk for any surgical procedure 5 the patient is afebrile the patient did have worsening of his white count possible component of oropharyngeal candidiasis versus due to steroids 6-patient to continue Rocephin and Diflucan and monitor clinical course closely Dictation was produced using [employer] dictation software. please excuse any g rammatical, word or spelling errors. Time with Patient: Less than 30
--- NOTE | 2024-02-25 15:12 | P.PN ---
Subjective Progress Note Date: 02/25/24 Principal diagnosis: Reason for follow-up is left-sided pneumonia and MSSA bacteremia Patient is a 73-year-old with a past medical history significant for atrial fibrillation heart failure , close head injury patient presenting to the hospital for evaluation of increasing shortness of breath left lower chest pain, patient has been diagnosed with left-sided pneumonia and did have a positive blood culture with MSSA prompted this consultation.Patient did have a chest x-ray morning of 01/30/2024 with evidence of left-sided pneumothorax in this patient who status post chest tube placement on 01/30/2024 by pulmonary On today's evaluation that is 02/25/2024, patient did not have any fever and denies any chills, patient is breathing comfortably on 4 L nasal cannula oxygen patient with no chest pain or cough patient did not have any abdominal pain nausea vomiting or any loose stools Patient white count is 23.02 creatinine is 1.0 Objective - Vital Signs Vital signs: Vital Signs Temp 97.0 F L 02/25/24 07:26 Pulse 86 02/25/24 12:24 Resp 16 02/25/24 07:26 BP 94/60 02/25/24 12:24 Pulse Ox 94 L 02/25/24 08:13 FiO2 40 02/16/24 12:48 Intake & Output 02/24/24 02/25/24 02/25/24 18:59 06:59 18:59 Intake Total 1320 Output Total 800 225 Balance -800 -225 1320 Weight 71.2 kg Intake: Oral 1320 Output: Urine 800 225 Other: Voiding Method Indwelling Catheter # Bowel Movements 1 ABP, PAP, CO, CI - Last Documented Arterial Blood Pressure 122/71 - Exam GENERAL DESCRIPTION: An elderly male lying in bed in no distress RESPIRATORY SYSTEM: Unlabored breathing , close bedside left side HEART: S1 S2 regular rate and rhythm , ABDOMEN: Soft , no tenderness EXTREMITIES: No edema feet - Labs CBC & Chem 7: 02/25/24 03:19 02/25/24 03:19 Labs: Abnormal Lab Results - Last 24 Hours (Table) 02/24/24 02/24/24 02/25/24 Range/Units 16:41 20:20 03:19 WBC 23.02 H (4.50-10.00) X 10*3/uL RBC 2.56 L (4.40-5.60) X 10*6/uL Hgb 8.6 L (13.0-17.0) g/dL Hct 27.3 L (39.6-50.0) % MCV 106.6 H (80.0-97.0) FL MCH 33.6 H (27.0-32.0) pg MCHC 31.5 L (32.0-37.0) g/dL RDW 23.9 H (11.5-14.5) % MPV 14.5 H (9.5-12.2) FL Immature Gran # 0.39 H (0.00-0.04) X 10*3/uL Neutrophils # 19.78 H (1.80-7.70) X 10*3/uL Monocytes # 1.70 H (0.20-1.00) X 10*3/uL Eosinophils # 0 L (0.04-0.35) X 10*3/uL NRBC/100 WBC Diff 0.02 H (0.00-0.01) X 10*3/uL BUN (9.0-27.0) mg/dL BUN/Creatinine Ratio (12.00-20.00) Ratio Glucose (70-110) mg/dL POC Glucose (mg/dL) 111 H 226 H (70-110) mg/dL Calcium (8.7-10.3) mg/dL AST (14-35) U/L ALT (10-49) U/L Alkaline Phosphatase (41-126) U/L Total Protein (6.2-8.2) g/dL Albumin (3.8-4.9) g/dL Albumin/Globulin Ratio (1.60-3.17) Ratio 02/25/24 02/25/24 Range/Units 03:19 11:27 WBC (4.50-10.00) X 10*3/uL RBC (4.40-5.60) X 10*6/uL Hgb (13.0-17.0) g/dL Hct (39.6-50.0) % MCV (80.0-97.0) FL MCH (27.0-32.0) pg MCHC (32.0-37.0) g/dL RDW (11.5-14.5) % MPV (9.5-12.2) FL Immature Gran # (0.00-0.04) X 10*3/uL Neutrophils # (1.80-7.70) X 10*3/uL Monocytes # (0.20-1.00) X 10*3/uL Eosinophils # (0.04-0.35) X 10*3/uL NRBC/100 WBC Diff (0.00-0.01) X 10*3/uL BUN 32.8 H (9.0-27.0) mg/dL BUN/Creatinine Ratio 32.80 H (12.00-20.00) Ratio Glucose 64 L (70-110) mg/dL POC Glucose (mg/dL) 132 H (70-110) mg/dL Calcium 7.2 L (8.7-10.3) mg/dL AST 75 H (14-35) U/L ALT 85 H (10-49) U/L Alkaline Phosphatase 361 H (41-126) U/L Total Protein 4.2 L (6.2-8.2) g/dL Albumin 1.9 L (3.8-4.9) g/dL Albumin/Globulin Ratio 0.83 L (1.60-3.17) Ratio Assessment and Plan (1) Bacteremia due to methicillin susceptible Staphylococcus aureus (MSSA) Current Visit: Yes Status: Acute Code(s): R78.81 - BACTEREMIA; B95.61 - METHICILLIN SUSCEP STAPH INFCT CAUSING DIS CLASSD ELSWHR SNOMED Code(s): 177119668 (2) Pneumonia Current Visit: Yes Status: Acute Code(s): J18.9 - PNEUMONIA, UNSPECIFIED ORGANISM SNOMED Code(s): 466520219 (3) Leukocytosis Current Visit: Yes Status: Acute Code(s): D72.829 - ELEVATED WHITE BLOOD CELL COUNT, UNSPECIFIED SNOMED Code(s): 346075177 Plan: 1patient presented to hospital with sepsis in this patient who did have leukocytosis tachycardia meeting criteria for SIRS source is left lower lobe pn eumonia 2-patient with MSSA bacteremia source likely pneumonia, blood culture repeat has been negative so far 3-patient CT of the chest did not show any empyema echocardiogram did not show any valvular abnormalities repeat blood culture negative 4patient did have complication of left-sided pneumothorax s/p is chest tube placement. Patient did have persistent leak CT surgery is closely following the patient considered to be high risk for any surgical procedure 5 the patient is afebrile the patient did have worsening of his white count possible component of oropharyngeal candidiasis versus due to steroids currently on Rocephin and Diflucan to continue to monitor clinical course closely Dictation was produced using [employer] dictation software. please excuse any grammatical, word or spelling errors. Time with Patient: Less than 30
[2024-02-25 16:53] LABS: Glucose,Whole Blood 136 mg/dL (70-110)
[2024-02-25 20:20] LABS: Glucose,Whole Blood 120 mg/dL (70-110)
[2024-02-26 06:22] LABS: Glucose,Whole Blood 117 mg/dL (70-110)
[2024-02-26 09:33] LABS: Basophils # (A) 0.06 X 10*3/uL (0.00-0.10); Basophils % (A) 0.3 %; Eosinophils # (A) 0.01 X 10*3/uL (0.04-0.35); Eosinophils % (A) 0 %; HCT 27.5 % (39.6-50.0); HGB 8.9 g/dL (13.0-17.0); Lymphocytes # (A) 1.13 X 10*3/uL (0.90-5.00); Lymphocytes % (A) 4.9 %; MCH 34.2 pg (27.0-32.0); MCHC 32.4 g/dL (32.0-37.0); MCV 105.8 FL (80.0-97.0); Mean Platelet Volume 13.6 FL (9.5-12.2); Monocytes # (A) 1.46 X 10*3/uL (0.20-1.00); Monocytes % (A) 6.4 %; NRBC Per 100 WBC 0 X 10*3/uL (0.00-0.01); Neutrophils # (A) 19.79 X 10*3/uL (1.80-7.70); Neutrophils % (A) 86.3 %; Platelet Count 247 X 10*3/uL (140-440); RDW 23.2 % (11.5-14.5); WBC 22.92 X 10*3/uL (4.50-10.00)
--- NOTE | 2024-02-26 10:25 | P.PN ---
Subjective Progress Note Date: 02/26/24 Rodriguez Jackson, is a 73-year-old male who presented to [facility] emergency room with a chief complaint of worsening shortness of breath, patient stated that he fell 2 weeks ago, he was complaining of left-sided rib pain especially when he takes a deep breath. He was also complaining of cough otherwise he denies any complaints. He was evaluated in the emergency room vital examination on presentation revealed a temperature of 98.8 pulse 118 respiration 18 blood pressure 130/78 pulse ox 97% on 10 L nonrebreather mask Laboratory data revealed a white blood count of 20.8 hemoglobin 12.2 platelet count 310 sodium 134 potassium 3.4 chloride 102 BUN 51 creatinine 1.77 AST 188 ALT 135 troponin 0.012 Testing in the emergency room revealed EKG done in the emergency room revealed atrial fibrillation with rapid ventricular response, chest x-ray revealed patchy left and right lower lobe infiltrates worse on the left. Patient was admitted to medical floor for further evaluation and treatment, pulmonary consultation and cardiology consultation were requested. On 01/23/2024 patient was seen and examined on the medical floor he is alert and oriented x 3 in no apparent distress he reports mild improvement in his shortness of breath, he is still complaining of cough and complaining of chest wall pain otherwise he denies any complaints there is no fever or chills no headache or dizziness no nausea or vomiting no abdominal pain no diarrhea no blood in the stools no burning with urination no frequency or urgency and no hematuria. His temperature is 98.8 pulse 108 respiration 26 blood pressure 138/92 pulse ox 91% on 11 L high flow cannula, white blood count is 26.7 hemoglobin 12.8 platelet count 281 BUN 31 creatinine 1.04 On 01/24/2024 patient is alert and oriented x 3. Patient still having some significant shortness of breath currently on 11 L nasal cannula. Cardiology, pu lmonary and infectious disease services are following. Patient remains on Cardizem drip. Patient remains on IV steroids and IV cefazolin. White blood cell 35.7, creatinine 1.18 bun 40. Current vital signs temp 97.8, heart 76, respiratory rate 26, blood pressure 112/73 with a pulse ox of 91% on 11 L On 01/25/2024 patient is alert and oriented x 3 patient reports some improvement with shortness of breath. Pulmonary cardiology and infectious disease services are following. Cardizem dean has been DC'd patient transition to p.o. Cardizekatey per cardiology continue IV antibiotics and steroids at this time.. Current vital signs temp 96.4, heart rate 74, respiratory rate 18, blood pressure 118/83 with a pulse ox of 97% on 10 L high flow. On 01/26/2024 patient was seen and examined on the medical floor he is alert and oriented x 3 in mild respiratory distress, he is maintained on high flow oxygen of 11 L/min, he is still complaining of cough and chest discomfort otherwise he denies any complaints, there is no fever or chills no headache or dizziness no chest pain no nausea or vomiting no abdominal pain no diarrhea no blood in the stools no burning with urination no frequency or urgency and no hematuria. Testing for COVID was positive yesterday. Pulmonary and infectious disease are following. On 01/27/2024 patient is alert and oriented x 3 patient continued to having increase oxygen demands. Per nursing staff pulmonary services were notified patient currently on high flow [address] scan of chest this morning which showed diffuse groundglass opacities and correlation for atypical pneumonia. Patient remains on IV Kefzol and prednisone. Pulmonary and infectious disease services following. Cardiology also following On 01/28/2024 patient is alert and oriented x 3. Patient at this time is resting comfortably in bed. Patient remains on Airvo 60%. Temp 97.6, heart rate 95, respiratory rate 24, blood pressure 100/67. Pulmonary cardiology and infectious disease are following patient remains on IV Kefzol and Solu-Medrol On 01/29/2024 patient was seen and examined on the medical floor he is alert and oriented x 3 in no apparent distress,he is still maintained on high flow oxygen, he is complaining of generalized weakness and complaining of constipation he has very poor oral intake, there is no fever or chills no headache or dizziness no chest pain, he has shortness of breath with any activity no palpitation he has continuous cough no nausea or vomiting no abdominal pain no diarrhea and no urinary symptoms. On 01/30/2024 patient was seen and examined in the ICU, he is alert responsive in no apparent distress maintained on high flow oxygen via Airvo, he was transferred to ICU due to worsening shortness of breath, chest x-ray today revealed interval development of a large left-sided pneumothorax estimated at 40%, he underwent chest tube placement, on the left. His vital exam reveals a temperature of 97.5 pulse 108 respiration 33 blood pressure 133/82 pulse ox is 98% on high flow cannula with FiO2 of 50% On 01/31/2024 patient remains in the intensive care unit. Chest tube in place. Current vital signs temp 97.9, heart rate 84, respiratory rate 23, blood pressure 102/71 with a pulse ox of 97% on high flow of 40%. Patient remains s hort of breath. Patient denies chest pain. Patient denies nausea vomiting or diarrhea. Patient denies any urinary burning or frequency On 02/01/2024 patient is alert and oriented x 3. Patient remains in the intensive care unit. Tube remains in place. Current vital signs temp 97.7, heart rate 79, respiratory rate 24, blood pressure 117/76 with a pulse ox of 100% on 6 L high flow. Patient reports some improvement with shortness of breath. Patient denies chest pain. Patient denies nausea vomiting or diarrhea. On 02/02/2024 patient was seen and examined in the ICU, he is alert and oriented x 3 in no apparent distress, he is complaining of discomfort at the chest tube site, and complaining of shortness of breath otherwise he denies any complaints there is no fever or chills no headache or dizziness, no chest pain, he has occasional cough no nausea or vomiting no abdominal pain no diarrhea no urinary symptoms. Temperature is 97.4 pulse 90 respiration 23 blood pressure 106/78 pulse ox 95% on 4 L nasal cannula, white blood count 45.7 hemoglobin 11.1 platelet count 199 BUN 45 creatinine 0.89 On 02/03/2024 patient remains in the ICU alert and oriented x 3. Patient still has chest tube complaining of some discomfort at site. Speech services at bedside assessing swallow still recommending nectar thick liquids. Current vital signs temp 97.6, heart rate 93, respiratory rate 21. Patient denies chest pain or shortness of breath. Patient denies nausea vomiting or diarrhea. Patient denies any urinary burning and frequency. On 02/04/2024 patient was seen and examined in the intensive care unit, he is alert and oriented in no apparent distress, he is complaining of pain in the chest wall site of the chest tube otherwise he denies any complaints, there is no fever or chills no headache or dizziness no chest pain no shortness of breath no cough no nausea or vomiting no abdominal pain no diarrhea no urinary symptoms, temperature is 97.5 pulse 89 respiration 16 blood pressure 108/68 pulse ox 96% on 4 L nasal cannula. His white blood count is 28.9 hemoglobin 11.0 platelet count 147 sodium 136 potassium 3.9 chloride 111 CO2 23 BUN 30 creatinine 0.94 On 02/05/2024 patient remains in the intensive care unit alert and oriented 3. Patient is down to 2 L. Chest tube remains in place.Patient's appetite remains poor patient has been started on Megace. Will consult when necessary for possible discharge planning. Patient denies chest pain or shortness breath. Patient denies nausea vomiting or diarrhea. Patient denies any urinary burning or frequency. Current vital signs temp 97.6, heart rate 80, respiratory rate 19,, Blood pressure 98/70 with pulse ox 95% on 2 L On 02/06/2024 patient was seen and examined on the telemetry floor, he is alert and oriented x 3. Current vital signs temp 97.9, heart rate 93, respiratory rate 18. blood pressure 122/60 Patient denies chest pain or shortness of breath. Patient denies nausea vomiting or diarrhea. Patient denies any urinary burning and frequency. On 03/05/2024 patient is alert and oriented x 3. Patient complaining about difficulty sleeping melatonin added. Discharge planning to [facility]. Patient remain s with chest tube awaiting further recommendations from pulmonary services. Current vital signs temp 97.3, heart rate 78, respiratory rate 18, blood pressure 133/80 with a pulse ox of 93% on 4 L. Patient denies chest pain or shortness of breath. Patient denies nausea vomiting or diarrhea. Patient denies any urinary burning or frequency On 02/08/2024 patient is alert and oriented x 3. Cardiothoracic surgery was consulted due to left-sided pneumothorax with chest tube placement with continuous airleak at this time recommendations to continue wall suction and will monitor. Patient denies chest pain or shortness of breath. Patient denies nausea vomiting or diarrhea. Patient denies any urinary burning or frequency. Current temp 97.3, heart rate 68, respiratory rate 18, blood pressure 96/63 with a pulse ox of 92% on 4 L On 02/09/2024 patient is alert and oriented x 3. Patient was transferred to the intensive care unit last night due to large bloody bowel movement and hypotension. At this time patient's Eliquis has been on hold. Surgical services have been consulted. Patient denies chest pain or shortness of breath. Patient denies nausea vomiting or diarrhea. Patient denies any urinary burning or frequency. Patient may require norepinephrine for blood pressure support co ntinue ICU management at this time. Critical care services following On 02/10/2024 patient is alert and oriented x 3. Per nursing staff patient has had no further episodes of large-volume bloody bowel movement. Patient still having some hypotension. Patient was evaluated by surgical services Eliquis remains on hold hemoglobin remained stable continue monitoring at this time. Patient also being followed by cardiothoracic surgery chest tube remains to suction at this time. Patient denies chest pain or shortness of breath. Patient denies any urinary burning or frequency. Patient denies nausea vomiting or diarrhea. On 02/11/2024 patient was seen and examined in the ICU, he is alert and oriented x 3 in no apparent distress, he is still complaining of left-sided chest wall pain site of his chest tube, otherwise he denies any complaints there is no fever or chills no headache or dizziness no chest pain no shortness of breath no cough no nausea or vomiting no abdominal pain no diarrhea no blood in the stools no burning with urination no frequency or urgency and no hematuria, patient has very low oral intake, he was encouraged in length in regard to increasing his diet and taking some protein supplements, albumin is low to 1.7, alternatively patient may need a Dobbhoff tube with enteral feeding. Will continue to follow closely On 02/12/2024 patient is alert and oriented x 3 remains in the ICU. Patient remains on IV Lasix patient having increased lower extremity edema. Appetite remains poor. Current vital signs temp 98.7, heart rate 89, respiratory rate 19, blood pressure 88/52 with a pulse ox of 93% on Airvo 60%. Patient denies chest pain or shortness of breath. Patient denies nausea vomiting or diarrhea. Patient denies any urinary burning or frequency On 02/13/2024 patient's alert and oriented remains in the intensive care unit. Remains on IV Lasix. Patient also remains on IV Zosyn. Multiple consults following. Patient remains on Airvo 60% and patient was started on Levophed for pressure support On 02/14/2024 patient is alert and oriented x 3. Edema has slightly improved. Patient remains on Levophed. Current vital signs temp 98.0, heart rate 94, r espiratory rate 19, blood pressure 102/73 with a pulse ox of 96% on Airvo 60%. Hemoglobin 8.9, white blood cell 28.6, creatinine 1.14 bun 33 On 02/15/2024 patient is alert and oriented x 3 patient remains in the intensive care unit Levophed getting weaned down per nursing staff chest tube has been removed. Patient remains on Airvo. Current vital signs temp 98.2, heart 81, respiratory rate 15, blood pressure 105/67 with a pulse ox of 112/64. Pulse ox 94% with an Airvo FiO2 of 50%. Patient denies chest pain or shortness of breath. Patient denies nausea vomiting or diarrhea. Patient denies any urinary burning or frequency. On 02/16/2024 patient was seen and examined in the ICU he is alert and oriented x 3 in no apparent distress there is no fever or chills no headache or dizziness no chest pain no shortness of breath, at rest patient is maintained on Airvo, high flow oxygen, no nausea or vomiting no abdominal pain no diarrhea no urinary symptoms. On 02/17/2024 patient remains in the ICU alert and oriented x 3. Patient is down to high flow and Levophed has been turned off. Per critical care will continue to monitor patient in the ICU for an additional 24 hours. Current temp 97.4, heart rate 87, respiratory rate 17, blood pressure 114/62 with a pulse ox of 95% on high flow 6 L. Patient denies chest pain or shortness of breath. Patient denies nausea vomiting or diarrhea. Patient denies any urinary burning or frequency On 02/18/2024 patient was seen and examined on the telemetry floor, he is alert and oriented x 3 in no apparent distress, he is still complaining of shortness of breath , he is maintained on oxygen 4 L via nasal cannula , he is complaining of chest wall pain site of his old chest tube , otherwise he denies any complaints at this time , there is no fever or chills, no headache or dizziness no chest pain he has occasional cough no nausea or vomiting no abdominal pain no diarrhea and no urinary symptoms, patient has been bedbound for several days, he will need to transfer to rehab when medically clear. On 02/19/2024 patient is alert and oriented x 3. At this time patient denies chest pain or shortness of breath. Patient denies nausea vomiting or diarrhea. Patient denies any urinary burning and frequency. Current vital signs temp 97.3 , heart rate 77, respiratory rate 17, blood pressure 110/74 with a pulse ox of 94% on 4 L On 02/20/2024 patient was seen and examined on the medical floor he is alert and oriented x 3 in no apparent distress he is maintained on oxygen 4 L via nasal cannula, he denies any chest pain or shortness of breath at rest vital exam reveals a temperature of 97.4 pulse 85 respiration 13 blood pressure 108/74 pulse ox 95% on 4 L nasal cannula, white blood count 29.95 hemoglobin 9.9 platelet count 237 BUN 37.5 creatinine 1.2, medication and labs were reviewed continue with current management will recheck in a.m. On 02/21/2024 patient is alert and oriented 3. Patient reports some increased shortness of breath intubated have been adjusted per ID will order chest x- ray.current vital signs temp 97.3, heart rate 97, respiratory rate 20, blood pressure 99/60 with pulse ox 92% on 4 L. Infectious disease, pulmonary and surgical services are following On 02/22/2024 patient is alert and oriented x 3. Patient reports some improvement. Chest x-ray showing interstitial infiltrate. Pulmonary and infec tious disease services are following. Current vital signs temp 97.6, heart rate 89, respiratory rate 20, blood pressure 97/66 with a pulse ox of 95% on 4 L patient denies chest pain. Patient denies nausea vomiting or diarrhea. Patient denies any urinary burning or frequency. On 02/23/2024 patient was seen and examined on the medical floor he is alert and oriented x 3 in no apparent distress he is still complaining of cough and shortness of breath otherwise he denies any complaints there is no fever or chills no headache or dizziness no chest pain no nausea or vomiting no abdominal pain no diarrhea and no urinary symptoms On 02/25/2024 patient is alert and oriented x 3. Patient still having some shortness of breath. Patient remains on Bactrim, IV Rocephin and Diflucan. Pulmonary and infectious disease services are following. Current vital signs temp 97.0, heart rate 94, respiratory rate 16, blood pressure 90/48 with a pulse ox of 94% on 4 L. On 02/26/2024 patient was seen and examined on the medical floor he is alert and oriented x 3 in no apparent distress he is still complaining of shortness of breath otherwise he denies any complaints there is no fever or chills no head ache or dizziness no chest pain he has occasional cough no nausea or vomiting no abdominal pain no diarrhea and no urinary symptoms. He remains on oxygen 4 L via nasal cannula. Patient is improving gradually. Objective - Vital Signs Vital signs: Vital Signs Temp 97.4 F L 02/26/24 06:55 Pulse 102 H 02/26/24 06:55 Resp 24 02/26/24 06:55 BP 108/65 02/26/24 06:55 Pulse Ox 90 L 02/26/24 06:55 FiO2 40 02/16/24 12:48 Intake & Output 02/25/24 02/26/24 02/26/24 18:59 06:59 18:59 Intake Total 5890 Output Total 300 Balance 5890 -300 Weight 72.3 kg Intake: IV 120 Sodium Chloride 0.9% 1, 120 000 ml @ 10 mls/hr IV . Q24H [facility] Rx#:[id number] Intake, IV Titration 50 Amount cefTRIAXone 2 gm In 50 Sodium Chloride 0.9% 50 ml @ 100 mls/hr IVPB Q24HR [facility] Rx#:[id number] Oral 5720 Output: Urine 300 Other: Voiding Method Indwelling Catheter ABP, PAP, CO, CI - Last Documented Arterial Blood Pressure 122/71 - Exam In general patient is alert and oriented x 3 in no distress HEENT head normocephalic and atraumatic Neck is supple no JVD no goiter no lymphadenopathy no carotid bruit Chest examination reveals a scattered crackles bilaterally no wheezing Cardiac exam reveals irregular heart sounds S1 and S2 with tachycardia no gallops no murmurs Abdomen is soft nontender no organomegaly with normal bowel sounds Extremity exam reveals no edema no cyanosis or clubbing Neurological examination reveals no gross focal deficits - Labs CBC & Chem 7: 02/26/24 05:49 02/25/24 03:19 Labs: Abnormal Lab Results - Last 24 Hours (Table) 02/25/24 02/25/24 02/25/24 Range/Units 03:19 03:19 11:27 WBC 23.02 H (4.50-10.00) X 10*3/uL RBC 2.56 L (4.40-5.60) X 10*6/uL Hgb 8.6 L (13.0-17.0) g/dL Hct 27.3 L (39.6-50.0) % MCV 106.6 H (80.0-97.0) FL MCH 33.6 H (27.0-32.0) pg MCHC 31.5 L (32.0-37.0) g/dL RDW 23.9 H (11.5-14.5) % MPV 14.5 H (9.5-12.2) FL Immature Gran # 0.39 H (0.00-0.04) X 10*3/uL Neutrophils # 19.78 H (1.80-7.70) X 10*3/uL Monocytes # 1.70 H (0.20-1.00) X 10*3/uL Eosinophils # 0 L (0.04-0.35) X 10*3/uL NRBC/100 WBC Diff 0.02 H (0.00-0.01) X 10*3/uL BUN 32.8 H (9.0-27.0) mg/dL BUN/Creatinine Ratio 32.80 H (12.00-20.00) Ratio Glucose 64 L (70-110) mg/dL POC Glucose (mg/dL) 132 H (70-110) mg/dL Calcium 7.2 L (8.7-10.3) mg/dL AST 75 H (14-35) U/L ALT 85 H (10-49) U/L Alkaline Phosphatase 361 H (41-126) U/L Total Protein 4.2 L (6.2-8.2) g/dL Albumin 1.9 L (3.8-4.9) g/dL Albumin/Globulin Ratio 0.83 L (1.60-3.17) Ratio 02/25/24 02/25/24 02/26/24 Range/Units 16:51 20:19 06:21 WBC (4.50-10.00) X 10*3/uL RBC (4.40-5.60) X 10*6/uL Hgb (13.0-17.0) g/dL Hct (39.6-50.0) % MCV (80.0-97.0) FL MCH (27.0-32.0) pg MCHC (32.0-37.0) g/dL RDW (11.5-14.5) % MPV (9.5-12.2) FL Immature Gran # (0.00-0.04) X 10*3/uL Neutrophils # (1.80-7.70) X 10*3/uL Monocytes # (0.20-1.00) X 10*3/uL Eosinophils # (0.04-0.35) X 10*3/uL NRBC/100 WBC Diff (0.00-0.01) X 10*3/uL BUN (9.0-27.0) mg/dL BUN/Creatinine Ratio (12.00-20.00) Ratio Glucose (70-110) mg/dL POC Glucose (mg/dL) 136 H 120 H 117 H (70-110) mg/dL Calcium (8.7-10.3) mg/dL AST (14-35) U/L ALT (10-49) U/L Alkaline Phosphatase (41-126) U/L Total Protein (6.2-8.2) g/dL Albumin (3.8-4.9) g/dL Albumin/Globulin Ratio (1.60-3.17) Ratio Assessment and Plan Assessment: 1. Pneumonia with sepsis as evident by elevated lactic acid and leukocytosis 2. Acute kidney injury secondary to sepsis and dehydration, kidney function improved significantly since admission 3. History of atrial fibrillation maintained on Eliquis, with episodes of rapid ventricular response during this presentation 4. History of CHF 5. Acute hypoxic respiratory failure requiring high flow oxygen supplements pulmonary are following 6. Elevated liver enzymes we will hold statin at this time and recheck 7. Positive blood culture for Staphylococcus aureus, consultation for infectious disease was initiated 8. COVID-19 positive 9. Left-sided pneumothorax requiring left-sided chest tube insertion 10. GI bleed. Surgical services consulted Eliquis currently on hold 11. Hypotension secondary to above patient currently in ICU may require vasopressors for blood pressure support DVT prophylaxis Eliquis. GI prophylaxis Protonix Pulmonary services consulted, infectious disease cardiology consultation requested echocardiogram ordered Blood and sputum cultures ordered Repeat labs ordered
[2024-02-26 11:04] LABS: ALT 131 U/L (10-49); AST 122 U/L (14-35); Albumin 1.9 g/dL (3.8-4.9); Albumin/Globulin Ratio 0.83 Ratio (1.60-3.17); Alkaline Phosphatase 532 U/L (41-126); Blood Urea Nitrogen 30.8 mg/dL (9.0-27.0); Calcium 7.3 mg/dL (8.7-10.3); Carbon Dioxide 28.4 mmol/L (21.6-31.8); Chloride 98 mmol/L (96-109); Globulin 2.3 g/dL (1.6-3.3); Glucose 102 mg/dL (70-110); Potassium 3.9 mmol/L (3.5-5.5); Sodium 135 mmol/L (135-145); Total Bilirubin 0.5 mg/dL (0.3-1.2); Total Protein 4.2 g/dL (6.2-8.2)
[2024-02-26 11:45] LABS: Glucose,Whole Blood 105 mg/dL (70-110)
[2024-02-26] MEDS: guaiFENesin-Coden 100-10MG/5ML 10 ML CUP PO SCH (12:23)
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
--- NOTE | 2024-02-26 13:43 | P.PN ---
Subjective Progress Note Date: 02/26/24 CHIEF COMPLAINT: Anemia HISTORY OF PRESENT ILLNESS: The patient is a 73-year-old male with multiple me dical comorbidities including pneumonia and anemia. No new complaints today. He is sitting in bed watching the football game. No signs of bleeding. He denies abdominal pain. ROS: No reports of nausea and vomiting. No fevers or chills. No new chest pain. PHYSICAL EXAM: VITAL SIGNS: Reviewed CONSTITUTIONAL: Well developed and in no acute distress. EYES: Conjuctivae without sclera icterus. Extraocular movements grossly intact. HEAD, EARS, NOSE, THROAT: Moist buccal mucosa. Head is atraumatic, normocephalic. Hears conversational speech. No nasal drainage. RESPIRATORY: Non-labored respirations and equal bilateral excursions. CARDIOVASCULAR: Palpable 2+ radial pulses. ABDOMEN: Nontender. MUSCULOSKELETAL: Ecchymosis on the bilateral forearms. SKIN: Good skin turgor. Well perfused. NEUROLOGIC: Cranial nerves II through XII grossly intact. No focal or lateralizing signs. PSYCH: Appropriate affect. Alert and oriented to person, place and time. CLINICAL LABS: Reviewed. Hemoglobin 8.6-8.9, anemia ASSESSMENT: 1. Persistent leukocytosis 2. Pneumonia 3. Anemia with GI bleed, stable PLAN: 1. Patient still had persistent leukocytosis of unclear etiology. Medical management at this time. 2. Hemoglobin has been stable for the last 24+ hours. Will continue to monitor. Objective - Vital Signs Vital signs: Vital Signs Temp 97.4 F L 02/26/24 06:55 Pulse 97 02/26/24 12:19 Resp 24 02/26/24 06:55 BP 97/64 02/26/24 12:19 Pulse Ox 90 L 02/26/24 06:55 FiO2 40 02/16/24 12:48 Intake & Output 02/25/24 02/26/24 02/26/24 18:59 06:59 18:59 Intake Total 5890 Output Total 300 Balance 5890 -300 Weight 72.3 kg Intake: IV 120 Sodium Chloride 0.9% 1, 120 000 ml @ 10 mls/hr IV . Q24H [facility]ENT Rx#:[id number] Intake, IV Titration 50 Amount cefTRIAXone 2 gm In 50 Sodium Chloride 0.9% 50 ml @ 100 mls/hr IVPB Q24HR [facility]ENT Rx#:[id number] Oral 5720 Output: Urine 300 Other: Voiding Method Indwelling Catheter Indwelling Catheter ABP, PAP, CO, CI - Last Documented Arterial Blood Pressure 122/71 - Labs CBC & Chem 7: 02/26/24 05:49 02/26/24 05:49 Labs: Abnormal Lab Results - Last 24 Hours (Table) 02/25/24 02/25/24 02/26/24 Range/Units 16:51 20:19 05:49 WBC 22.92 H (4.50-10.00) X 10*3/uL RBC 2.60 L (4.40-5.60) X 10*6/uL Hgb 8.9 L (13.0-17.0) g/dL Hct 27.5 L (39.6-50.0) % MCV 105.8 H (80.0-97.0) FL MCH 34.2 H (27.0-32.0) pg RDW 23.2 H (11.5-14.5) % MPV 13.6 H (9.5-12.2) FL Immature Gran # 0.47 H (0.00-0.04) X 10*3/uL Neutrophils # 19.79 H (1.80-7.70) X 10*3/uL Monocytes # 1.46 H (0.20-1.00) X 10*3/uL Eosinophils # 0.01 L (0.04-0.35) X 10*3/uL BUN (9.0-27.0) mg/dL BUN/Creatinine Ratio (12.00-20.00) Ratio POC Glucose (mg/dL) 136 H 120 H (70-110) mg/dL Calcium (8.7-10.3) mg/dL AST (14-35) U/L ALT (10-49) U/L Alkaline Phosphatase (41-126) U/L Total Protein (6.2-8.2) g/dL Albumin (3.8-4.9) g/dL Albumin/Globulin Ratio (1.60-3.17) Ratio 02/26/24 02/26/24 Range/Units 05:49 06:21 WBC (4.50-10.00) X 10*3/uL RBC (4.40-5.60) X 10*6/uL Hgb (13.0-17.0) g/dL Hct (39.6-50.0) % MCV (80.0-97.0) FL MCH (27.0-32.0) pg RDW (11.5-14.5) % MPV (9.5-12.2) FL Immature Gran # (0.00-0.04) X 10*3/uL Neutrophils # (1.80-7.70) X 10*3/uL Monocytes # (0.20-1.00) X 10*3/uL Eosinophils # (0.04-0.35) X 10*3/uL BUN 30.8 H (9.0-27.0) mg/dL BUN/Creatinine Ratio 30.80 H (12.00-20.00) Ratio POC Glucose (mg/dL) 117 H (70-110) mg/dL Calcium 7.3 L (8.7-10.3) mg/dL AST 122 H (14-35) U/L ALT 131 H (10-49) U/L Alkaline Phosphatase 532 H (41-126) U/L Total Protein 4.2 L (6.2-8.2) g/dL Albumin 1.9 L (3.8-4.9) g/dL Albumin/Globulin Ratio 0.83 L (1.60-3.17) Ratio
[2024-02-26 16:51] LABS: Glucose,Whole Blood 193 mg/dL (70-110)
[2024-02-26 20:28] LABS: Glucose,Whole Blood 95 mg/dL (70-110)
[2024-02-27 06:29] LABS: Glucose,Whole Blood 110 mg/dL (70-110)
--- NOTE | 2024-02-27 08:01 | P.PN ---
Subjective Progress Note Date: 02/26/24 Principal diagnosis: Reason for follow-up is left-sided pneumonia and MSSA bacteremia Patient is a 73-year-old with a past medical history significant for atrial fibrillation heart failure , close head injury patient presenting to the hospital for evaluation of increasing shortness of breath left lower chest pain, patient has been diagnosed with left-sided pneumonia and did have a positive blood culture with MSSA prompted this consultation.Patient did have a chest x-ray morning of 01/30/2024 with evidence of left-sided pneumothorax in this patient who status post chest tube placement on 01/30/2024 by pulmonary On today's evaluation that is 02/26/2024, Patient is afebrile patient is currently on 4 L current oxygen and denies having any shortness of breath, the patient denies any chest pain or cough, the patient denies any nausea vomiting did not have any abdominal pain and no diarrhea. Patient white is slightly down to 22.92 creat is 1.0 Objective - Vital Signs Vital signs: Vital Signs Temp 97.5 F L 02/26/24 19:07 Pulse 101 H 02/26/24 19:07 Resp 18 02/26/24 19:07 BP 102/65 02/26/24 19:07 Pulse Ox 91 L 02/26/24 19:07 FiO2 40 02/16/24 12:48 Intake & Output 02/26/24 02/26/24 02/27/24 06:59 18:59 06:59 Output Total 300 530 Balance -300 -530 Weight 72.3 kg Output: Urine 300 530 Uretheral (Juares) 530 Other: Voiding Method Indwelling Catheter Indwelling Catheter # Voids 1 ABP, PAP, CO, CI - Last Documented Arterial Blood Pressure 122/71 - Exam GENERAL DESCRIPTION: An elderly male lying in bed in no distress RESPIRATORY SYSTEM: Unlabored breathing , close bedside left side HEART: S1 S2 regular rate and rhythm , ABDOMEN: Soft , no tenderness EXTREMITIES: No edema feet - Labs CBC & Chem 7: 02/26/24 05:49 02/26/24 05:49 Labs: Abnormal Lab Results - Last 24 Hours (Table) 02/26/24 02/26/24 02/26/24 Range/Units 05:49 05:49 06:21 WBC 22.92 H (4.50-10.00) X 10*3/uL RBC 2.60 L (4.40-5.60) X 10*6/uL Hgb 8.9 L (13.0-17.0) g/dL Hct 27.5 L (39.6-50.0) % MCV 105.8 H (80.0-97.0) FL MCH 34.2 H (27.0-32.0) pg RDW 23.2 H (11.5-14.5) % MPV 13.6 H (9.5-12.2) FL Immature Gran # 0.47 H (0.00-0.04) X 10*3/uL Neutrophils # 19.79 H (1.80-7.70) X 10*3/uL Monocytes # 1.46 H (0.20-1.00) X 10*3/uL Eosinophils # 0.01 L (0.04-0.35) X 10*3/uL BUN 30.8 H (9.0-27.0) mg/dL BUN/Creatinine Ratio 30.80 H (12.00-20.00) Ratio POC Glucose (mg/dL) 117 H (70-110) mg/dL Calcium 7.3 L (8.7-10.3) mg/dL AST 122 H (14-35) U/L ALT 131 H (10-49) U/L Alkaline Phosphatase 532 H (41-126) U/L Total Protein 4.2 L (6.2-8.2) g/dL Albumin 1.9 L (3.8-4.9) g/dL Albumin/Globulin Ratio 0.83 L (1.60-3.17) Ratio 02/26/24 Range/Units 16:46 WBC (4.50-10.00) X 10*3/uL RBC (4.40-5.60) X 10*6/uL Hgb (13.0-17.0) g/dL Hct (39.6-50.0) % MCV (80.0-97.0) FL MCH (27.0-32.0) pg RDW (11.5-14.5) % MPV (9.5-12.2) FL Immature Gran # (0.00-0.04) X 10*3/uL Neutrophils # (1.80-7.70) X 10*3/uL Monocytes # (0.20-1.00) X 10*3/uL Eosinophils # (0.04-0.35) X 10*3/uL BUN (9.0-27.0) mg/dL BUN/Creatinine Ratio (12.00-20.00) Ratio POC Glucose (mg/dL) 193 H (70-110) mg/dL Calcium (8.7-10.3) mg/dL AST (14-35) U/L ALT (10-49) U/L Alkaline Phosphatase (41-126) U/L Total Protein (6.2-8.2) g/dL Albumin (3.8-4.9) g/dL Albumin/Globulin Ratio (1.60-3.17) Ratio Assessment and Plan (1) Bacteremia due to methicillin susceptible Staphylococcus aureus (MSSA) Current Visit: Yes Status: Acute Code(s): R78.81 - BACTEREMIA; B95.61 - METHICILLIN SUSCEP STAPH INFCT CAUSING DIS CLASSD [id number] SNOMED Code(s): 158220570 (2) Pneumonia Current Visit: Yes Status: Acute Code(s): J18.9 - PNEUMONIA, UNSPECIFIED ORGANISM SNOMED Code(s): 360368512 (3) Leukocytosis Current Visit: Yes Status: Acute Code(s): D72.829 - ELEVATED WHITE BLOOD CELL COUNT, UNSPECIFIED SNOMED Code(s): 707095611 Plan: 1patient presented to hospital with sepsis in this patient who did have leukocytosis tachycardia meeting criteria for SIRS source is left lower lobe pneumonia 2-patient with MSSA bacteremia source likely pneumonia, blood culture repeat has been negative so far 3-patient CT of the chest did not show any empyema echocardiogram did not show any valvular abnormalities repeat blood culture negative 4patient did have complication of left-sided pneumothorax s/p is chest tube placement. Patient did have persistent leak CT surgery is closely following the patient considered to be high risk for any surgical procedure 5 the patient with leukocytosis possible component of oropharyngeal candidiasis versus due to steroids patient white count slightly downtrending, will treat with Rocephin and Diflucan to continue to monitor clinical course closely Dictation was produced using [employer] dictation software. please excuse any grammatical, word or spelling errors.
--- NOTE | 2024-02-27 11:06 | P.PN ---
Subjective Progress Note Date: 02/27/24 SURGICAL PROGRESS NOTE CHIEF COMPLAINT: Shortness of breath HISTORY OF PRESENT ILLNESS: She is lying down in bed. No new complaints hemoglobin 8.9 as of yesterday. Afebrile. Mildly tachycardic. PHYSICAL EXAM: VITAL SIGNS: Reviewed. GENERAL: in no acute distress. ABDOMEN: Soft. Nondistended. Nontender. NEUROLOGIC: Awake and alert ASSESSMENT: 1. Anemia with Acute GI bleed, HGB stable. No further active bleeding 2. Persistent leukocytosis 3. atrial fibrillation PLAN: -No surgical intervention planned -Continue supportive care Physician Financial Counselor note has been reviewed by physician. Signing provider agrees with the documented findings, assessment, and plan of care. Objective - Vital Signs Vital signs: Vital Signs Temp 97.8 F 02/27/24 06:50 Pulse 103 H 02/27/24 06:50 Resp 18 02/27/24 06:50 BP 93/68 02/27/24 06:50 Pulse Ox 97 02/27/24 06:50 FiO2 40 02/16/24 12:48 Intake & Output 02/26/24 02/27/24 02/27/24 18:59 06:59 18:59 Output Total 530 225 Balance -530 -225 Weight 71.1 kg Output: Urine 530 225 Uretheral (Juares) 530 Other: Voiding Method Indwelling Catheter Indwelling Catheter Indwelling Catheter # Voids 1 ABP, PAP, CO, CI - Last Documented Arterial Blood Pressure 122/71 - Labs CBC & Chem 7: 02/26/24 05:49 02/26/24 05:49 Labs: Abnormal Lab Results - Last 24 Hours (Table) 02/26/24 Range/Units 16:46 POC Glucose (mg/dL) 193 H (70-110) mg/dL
[2024-02-27 11:32] LABS: Glucose,Whole Blood 125 mg/dL (70-110)
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
--- NOTE | 2024-02-27 15:35 | P.PN ---
Subjective Progress Note Date: 02/27/24 Rodriguez [place], is a 73-year-old male who presented to [facility] emergency room with a chief complaint of worsening shortness of breath, patient stated that he fell 2 weeks ago, he was complaining of left-sided rib pain especially when he takes a deep breath. He was also complaining of cough otherwise he denies any complaints. He was evaluated in the emergency room vital examination on presentation revealed a temperature of 98.8 pulse 118 respiration 18 blood pressure 130/78 pulse ox 97% on 10 L nonrebreather mask Laboratory data revealed a white blood count of 20.8 hemoglobin 12.2 platelet count 310 sodium 134 potassium 3.4 chloride 102 BUN 51 creatinine 1.77 AST 188 ALT 135 troponin 0.012 Testing in the emergency room revealed EKG done in the emergency room revealed atrial fibrillation with rapid ventricular response, chest x-ray revealed patchy left and right lower lobe infiltrates worse on the left. Patient was admitted to medical floor for further evaluation and treatment, pulmonary consultation and cardiology consultation were requested. On 01/23/2024 patient was seen and examined on the medical floor he is alert and oriented x 3 in no apparent distress he reports mild improvement in his shortness of breath, he is still complaining of cough and complaining of chest wall pain otherwise he denies any complaints there is no fever or chills no headache or dizziness no nausea or vomiting no abdominal pain no diarrhea no blood in the stools no burning with urination no frequency or urgency and no hematuria. His temperature is 98.8 pulse 108 respiration 26 blood pressure 138/92 pulse ox 91% on 11 L high flow cannula, white blood count is 26.7 hemoglobin 12.8 platelet count 281 BUN 31 creatinine 1.04 On 01/24/2024 patient is alert and oriented x 3. Patient still having some significant shortness of breath currently on 11 L nasal cannula. Cardiology, pu lmonary and infectious disease services are following. Patient remains on Cardizem drip. Patient remains on IV steroids and IV cefazolin. White blood cell 35.7, creatinine 1.18 bun 40. Current vital signs temp 97.8, heart 76, respiratory rate 26, blood pressure 112/73 with a pulse ox of 91% on 11 L On 01/25/2024 patient is alert and oriented x 3 patient reports some improvement with shortness of breath. Pulmonary cardiology and infectious disease services are following. Cardizem dean has been DC'd patient transition to p.o. Cardizekatey per cardiology continue IV antibiotics and steroids at this time.. Current vital signs temp 96.4, heart rate 74, respiratory rate 18, blood pressure 118/83 with a pulse ox of 97% on 10 L high flow. On 01/26/2024 patient was seen and examined on the medical floor he is alert and oriented x 3 in mild respiratory distress, he is maintained on high flow oxygen of 11 L/min, he is still complaining of cough and chest discomfort otherwise he denies any complaints, there is no fever or chills no headache or dizziness no chest pain no nausea or vomiting no abdominal pain no diarrhea no blood in the stools no burning with urination no frequency or urgency and no hematuria. Testing for COVID was positive yesterday. Pulmonary and infectious disease are following. On 01/27/2024 patient is alert and oriented x 3 patient continued to having increase oxygen demands. Per nursing staff pulmonary services were notified patient currently on high flow [address] scan of chest this morning which showed diffuse groundglass opacities and correlation for atypical pneumonia. Patient remains on IV Kefzol and prednisone. Pulmonary and infectious disease services following. Cardiology also following On 01/28/2024 patient is alert and oriented x 3. Patient at this time is resting comfortably in bed. Patient remains on Airvo 60%. Temp 97.6, heart rate 95, respiratory rate 24, blood pressure 100/67. Pulmonary cardiology and infectious disease are following patient remains on IV Kefzol and Solu-Medrol On 01/29/2024 patient was seen and examined on the medical floor he is alert and oriented x 3 in no apparent distress,he is still maintained on high flow oxygen, he is complaining of generalized weakness and complaining of constipation he has very poor oral intake, there is no fever or chills no headache or dizziness no chest pain, he has shortness of breath with any activity no palpitation he has continuous cough no nausea or vomiting no abdominal pain no diarrhea and no urinary symptoms. On 01/30/2024 patient was seen and examined in the ICU, he is alert responsive in no apparent distress maintained on high flow oxygen via Airvo, he was transferred to ICU due to worsening shortness of breath, chest x-ray today revealed interval development of a large left-sided pneumothorax estimated at 40%, he underwent chest tube placement, on the left. His vital exam reveals a temperature of 97.5 pulse 108 respiration 33 blood pressure 133/82 pulse ox is 98% on high flow cannula with FiO2 of 50% On 01/31/2024 patient remains in the intensive care unit. Chest tube in place. Current vital signs temp 97.9, heart rate 84, respiratory rate 23, blood pressure 102/71 with a pulse ox of 97% on high flow of 40%. Patient remains s hort of breath. Patient denies chest pain. Patient denies nausea vomiting or diarrhea. Patient denies any urinary burning or frequency On 02/01/2024 patient is alert and oriented x 3. Patient remains in the intensive care unit. Tube remains in place. Current vital signs temp 97.7, heart rate 79, respiratory rate 24, blood pressure 117/76 with a pulse ox of 100% on 6 L high flow. Patient reports some improvement with shortness of breath. Patient denies chest pain. Patient denies nausea vomiting or diarrhea. On 02/02/2024 patient was seen and examined in the ICU, he is alert and oriented x 3 in no apparent distress, he is complaining of discomfort at the chest tube site, and complaining of shortness of breath otherwise he denies any complaints there is no fever or chills no headache or dizziness, no chest pain, he has occasional cough no nausea or vomiting no abdominal pain no diarrhea no urinary symptoms. Temperature is 97.4 pulse 90 respiration 23 blood pressure 106/78 pulse ox 95% on 4 L nasal cannula, white blood count 45.7 hemoglobin 11.1 platelet count 199 BUN 45 creatinine 0.89 On 02/03/2024 patient remains in the ICU alert and oriented x 3. Patient still has chest tube complaining of some discomfort at site. Speech services at bedside assessing swallow still recommending nectar thick liquids. Current vital signs temp 97.6, heart rate 93, respiratory rate 21. Patient denies chest pain or shortness of breath. Patient denies nausea vomiting or diarrhea. Patient denies any urinary burning and frequency. On 02/04/2024 patient was seen and examined in the intensive care unit, he is alert and oriented in no apparent distress, he is complaining of pain in the chest wall site of the chest tube otherwise he denies any complaints, there is no fever or chills no headache or dizziness no chest pain no shortness of breath no cough no nausea or vomiting no abdominal pain no diarrhea no urinary symptoms, temperature is 97.5 pulse 89 respiration 16 blood pressure 108/68 pulse ox 96% on 4 L nasal cannula. His white blood count is 28.9 hemoglobin 11.0 platelet count 147 sodium 136 potassium 3.9 chloride 111 CO2 23 BUN 30 creatinine 0.94 On 02/05/2024 patient remains in the intensive care unit alert and oriented 3. Patient is down to 2 L. Chest tube remains in place.Patient's appetite remains poor patient has been started on Megace. Will consult when necessary for possible discharge planning. Patient denies chest pain or shortness breath. Patient denies nausea vomiting or diarrhea. Patient denies any urinary burning or frequency. Current vital signs temp 97.6, heart rate 80, respiratory rate 19,, Blood pressure 98/70 with pulse ox 95% on 2 L On 02/06/2024 patient was seen and examined on the telemetry floor, he is alert and oriented x 3. Current vital signs temp 97.9, heart rate 93, respiratory rate 18. blood pressure 122/60 Patient denies chest pain or shortness of breath. Patient denies nausea vomiting or diarrhea. Patient denies any urinary burning and frequency. On 03/05/2024 patient is alert and oriented x 3. Patient complaining about difficulty sleeping melatonin added. Discharge planning to [facility]. Patient remain s with chest tube awaiting further recommendations from pulmonary services. Current vital signs temp 97.3, heart rate 78, respiratory rate 18, blood pressure 133/80 with a pulse ox of 93% on 4 L. Patient denies chest pain or shortness of breath. Patient denies nausea vomiting or diarrhea. Patient denies any urinary burning or frequency On 02/08/2024 patient is alert and oriented x 3. Cardiothoracic surgery was consulted due to left-sided pneumothorax with chest tube placement with continuous airleak at this time recommendations to continue wall suction and will monitor. Patient denies chest pain or shortness of breath. Patient denies nausea vomiting or diarrhea. Patient denies any urinary burning or frequency. Current temp 97.3, heart rate 68, respiratory rate 18, blood pressure 96/63 with a pulse ox of 92% on 4 L On 02/09/2024 patient is alert and oriented x 3. Patient was transferred to the intensive care unit last night due to large bloody bowel movement and hypotension. At this time patient's Eliquis has been on hold. Surgical services have been consulted. Patient denies chest pain or shortness of breath. Patient denies nausea vomiting or diarrhea. Patient denies any urinary burning or frequency. Patient may require norepinephrine for blood pressure support co ntinue ICU management at this time. Critical care services following On 02/10/2024 patient is alert and oriented x 3. Per nursing staff patient has had no further episodes of large-volume bloody bowel movement. Patient still having some hypotension. Patient was evaluated by surgical services Eliquis remains on hold hemoglobin remained stable continue monitoring at this time. Patient also being followed by cardiothoracic surgery chest tube remains to suction at this time. Patient denies chest pain or shortness of breath. Patient denies any urinary burning or frequency. Patient denies nausea vomiting or diarrhea. On 02/11/2024 patient was seen and examined in the ICU, he is alert and oriented x 3 in no apparent distress, he is still complaining of left-sided chest wall pain site of his chest tube, otherwise he denies any complaints there is no fever or chills no headache or dizziness no chest pain no shortness of breath no cough no nausea or vomiting no abdominal pain no diarrhea no blood in the stools no burning with urination no frequency or urgency and no hematuria, patient has very low oral intake, he was encouraged in length in regard to increasing his diet and taking some protein supplements, albumin is low to 1.7, alternatively patient may need a Dobbhoff tube with enteral feeding. Will continue to follow closely On 02/12/2024 patient is alert and oriented x 3 remains in the ICU. Patient remains on IV Lasix patient having increased lower extremity edema. Appetite remains poor. Current vital signs temp 98.7, heart rate 89, respiratory rate 19, blood pressure 88/52 with a pulse ox of 93% on Airvo 60%. Patient denies chest pain or shortness of breath. Patient denies nausea vomiting or diarrhea. Patient denies any urinary burning or frequency On 02/13/2024 patient's alert and oriented remains in the intensive care unit. Remains on IV Lasix. Patient also remains on IV Zosyn. Multiple consults following. Patient remains on Airvo 60% and patient was started on Levophed for pressure support On 02/14/2024 patient is alert and oriented x 3. Edema has slightly improved. Patient remains on Levophed. Current vital signs temp 98.0, heart rate 94, r espiratory rate 19, blood pressure 102/73 with a pulse ox of 96% on Airvo 60%. Hemoglobin 8.9, white blood cell 28.6, creatinine 1.14 bun 33 On 02/15/2024 patient is alert and oriented x 3 patient remains in the intensive care unit Levophed getting weaned down per nursing staff chest tube has been removed. Patient remains on Airvo. Current vital signs temp 98.2, heart 81, respiratory rate 15, blood pressure 105/67 with a pulse ox of 112/64. Pulse ox 94% with an Airvo FiO2 of 50%. Patient denies chest pain or shortness of breath. Patient denies nausea vomiting or diarrhea. Patient denies any urinary burning or frequency. On 02/16/2024 patient was seen and examined in the ICU he is alert and oriented x 3 in no apparent distress there is no fever or chills no headache or dizziness no chest pain no shortness of breath, at rest patient is maintained on Airvo, high flow oxygen, no nausea or vomiting no abdominal pain no diarrhea no urinary symptoms. On 02/17/2024 patient remains in the ICU alert and oriented x 3. Patient is down to high flow and Levophed has been turned off. Per critical care will continue to monitor patient in the ICU for an additional 24 hours. Current temp 97.4, heart rate 87, respiratory rate 17, blood pressure 114/62 with a pulse ox of 95% on high flow 6 L. Patient denies chest pain or shortness of breath. Patient denies nausea vomiting or diarrhea. Patient denies any urinary burning or frequency On 02/18/2024 patient was seen and examined on the telemetry floor, he is alert and oriented x 3 in no apparent distress, he is still complaining of shortness of breath , he is maintained on oxygen 4 L via nasal cannula , he is complaining of chest wall pain site of his old chest tube , otherwise he denies any complaints at this time , there is no fever or chills, no headache or dizziness no chest pain he has occasional cough no nausea or vomiting no abdominal pain no diarrhea and no urinary symptoms, patient has been bedbound for several days, he will need to transfer to rehab when medically clear. On 02/19/2024 patient is alert and oriented x 3. At this time patient denies chest pain or shortness of breath. Patient denies nausea vomiting or diarrhea. Patient denies any urinary burning and frequency. Current vital signs temp 97.3 , heart rate 77, respiratory rate 17, blood pressure 110/74 with a pulse ox of 94% on 4 L On 02/20/2024 patient was seen and examined on the medical floor he is alert and oriented x 3 in no apparent distress he is maintained on oxygen 4 L via nasal cannula, he denies any chest pain or shortness of breath at rest vital exam reveals a temperature of 97.4 pulse 85 respiration 13 blood pressure 108/74 pulse ox 95% on 4 L nasal cannula, white blood count 29.95 hemoglobin 9.9 platelet count 237 BUN 37.5 creatinine 1.2, medication and labs were reviewed continue with current management will recheck in a.m. On 02/21/2024 patient is alert and oriented 3. Patient reports some increased shortness of breath intubated have been adjusted per ID will order chest x- ray.current vital signs temp 97.3, heart rate 97, respiratory rate 20, blood pressure 99/60 with pulse ox 92% on 4 L. Infectious disease, pulmonary and surgical services are following On 02/22/2024 patient is alert and oriented x 3. Patient reports some improvement. Chest x-ray showing interstitial infiltrate. Pulmonary and infec tious disease services are following. Current vital signs temp 97.6, heart rate 89, respiratory rate 20, blood pressure 97/66 with a pulse ox of 95% on 4 L patient denies chest pain. Patient denies nausea vomiting or diarrhea. Patient denies any urinary burning or frequency. On 02/23/2024 patient was seen and examined on the medical floor he is alert and oriented x 3 in no apparent distress he is still complaining of cough and shortness of breath otherwise he denies any complaints there is no fever or chills no headache or dizziness no chest pain no nausea or vomiting no abdominal pain no diarrhea and no urinary symptoms On 02/25/2024 patient is alert and oriented x 3. Patient still having some shortness of breath. Patient remains on Bactrim, IV Rocephin and Diflucan. Pulmonary and infectious disease services are following. Current vital signs temp 97.0, heart rate 94, respiratory rate 16, blood pressure 90/48 with a pulse ox of 94% on 4 L. On 02/26/2024 patient was seen and examined on the medical floor he is alert and oriented x 3 in no apparent distress he is still complaining of shortness of breath otherwise he denies any complaints there is no fever or chills no head ache or dizziness no chest pain he has occasional cough no nausea or vomiting no abdominal pain no diarrhea and no urinary symptoms. He remains on oxygen 4 L via nasal cannula. Patient is improving gradually. On 02/27/2024 patient is alert and oriented x 3 patient is improving gradually. Patient denies any chest pain or shortness of breath. Patient denies nausea vomiting or diarrhea. Patient denies any urinary burning or frequency. Current vital signs temp 97.8, heart rate 91, respiratory rate 93/55 with a pulse ox of 96% on 4 L Objective - Vital Signs Vital signs: Vital Signs Temp 97.8 F 02/27/24 06:50 Pulse 91 02/27/24 13:18 Resp 20 02/27/24 13:18 BP 93/55 02/27/24 13:18 Pulse Ox 96 02/27/24 13:18 FiO2 40 02/16/24 12:48 Intake & Output 02/26/24 02/27/24 02/27/24 18:59 06:59 18:59 Output Total 530 225 Balance -530 -225 Weight 71.1 kg Output: Urine 530 225 Uretheral (Juares) 530 Other: Voiding Method Indwelling Catheter Indwelling Catheter Indwelling Catheter # Voids 1 ABP, PAP, CO, CI - Last Documented Arterial Blood Pressure 122/71 - Exam In general patient is alert and oriented x 3 in no distress HEENT head normocephalic and atraumatic Neck is supple no JVD no goiter no lymphadenopathy no carotid bruit Chest examination reveals a scattered crackles bilaterally no wheezing Cardiac exam reveals irregular heart sounds S1 and S2 with tachycardia no gallops no murmurs Abdomen is soft nontender no organomegaly with normal bowel sounds Extremity exam reveals no edema no cyanosis or clubbing Neurological examination reveals no gross focal deficits - Labs CBC & Chem 7: 02/26/24 05:49 02/26/24 05:49 Labs: Abnormal Lab Results - Last 24 Hours (Table) 02/26/24 02/27/24 Range/Units 16:46 11:30 POC Glucose (mg/dL) 193 H 125 H (70-110) mg/dL Assessment and Plan Assessment: 1. Pneumonia with sepsis as evident by elevated lactic acid and leukocytosis 2. Acute kidney injury secondary to sepsis and dehydration, kidney function improved significantly since admission 3. History of atrial fibrillation maintained on Eliquis, with episodes of rapid ventricular response during this presentation 4. History of CHF 5. Acute hypoxic respiratory failure requiring high flow oxygen supplements pulmonary are following 6. Elevated liver enzymes we will hold statin at this time and recheck 7. Positive blood culture for Staphylococcus aureus, consultation for infectious disease was initiated 8. COVID-19 positive 9. Left-sided pneumothorax requiring left-sided chest tube insertion 10. GI bleed. Surgical services consulted Eliquis currently on hold 11. Hypotension secondary to above patient currently in ICU may require vasopressors for blood pressure support DVT prophylaxis Eliquis. GI prophylaxis Protonix Pulmonary services consulted, infectious disease cardiology consultation requested echocardiogram ordered Blood and sputum cultures ordered Repeat labs ordered
[2024-02-27 16:37] LABS: Glucose,Whole Blood 121 mg/dL (70-110)
[2024-02-27 20:10] LABS: Glucose,Whole Blood 147 mg/dL (70-110)
[2024-02-28 06:30] LABS: Glucose,Whole Blood 126 mg/dL (70-110)
[2024-02-28 08:24] LABS: Basophils # (A) 0.12 X 10*3/uL (0.00-0.10); Basophils % (A) 0.5 %; Eosinophils # (A) 0.01 X 10*3/uL (0.04-0.35); Eosinophils % (A) 0 %; HCT 29.6 % (39.6-50.0); HGB 9.4 g/dL (13.0-17.0); Lymphocytes # (A) 1.58 X 10*3/uL (0.90-5.00); Lymphocytes % (A) 6.1 %; MCH 34.4 pg (27.0-32.0); MCHC 31.8 g/dL (32.0-37.0); MCV 108.4 FL (80.0-97.0); Mean Platelet Volume 13.6 FL (9.5-12.2); Monocytes % (A) 5.8 %; NRBC Per 100 WBC 0 X 10*3/uL (0.00-0.01); Neutrophils # (A) 22.17 X 10*3/uL (1.80-7.70); Neutrophils % (A) 85.2 %; Platelet Count 271 X 10*3/uL (140-440); RBC 2.73 X 10*6/uL (4.40-5.60); RDW 23.2 % (11.5-14.5)
--- NOTE | 2024-02-28 09:09 | P.PN ---
Subjective Progress Note Date: 02/28/24 Rodriguez Jackson, is a 73-year-old male who presented to [facility] emergency room with a chief complaint of worsening shortness of breath, patient stated that he fell 2 weeks ago, he was complaining of left-sided rib pain especially when he takes a deep breath. He was also complaining of cough otherwise he denies any complaints. He was evaluated in the emergency room vital examination on presentation revealed a temperature of 98.8 pulse 118 respiration 18 blood pressure 130/78 pulse ox 97% on 10 L nonrebreather mask Laboratory data revealed a white blood count of 20.8 hemoglobin 12.2 platelet count 310 sodium 134 potassium 3.4 chloride 102 BUN 51 creatinine 1.77 AST 188 ALT 135 troponin 0.012 Testing in the emergency room revealed EKG done in the emergency room revealed atrial fibrillation with rapid ventricular response, chest x-ray revealed patchy left and right lower lobe infiltrates worse on the left. Patient was admitted to medical floor for further evaluation and treatment, pulmonary consultation and cardiology consultation were requested. On 01/23/2024 patient was seen and examined on the medical floor he is alert and oriented x 3 in no apparent distress he reports mild improvement in his shortness of breath, he is still complaining of cough and complaining of chest wall pain otherwise he denies any complaints there is no fever or chills no headache or dizziness no nausea or vomiting no abdominal pain no diarrhea no blood in the stools no burning with urination no frequency or urgency and no hematuria. His temperature is 98.8 pulse 108 respiration 26 blood pressure 138/92 pulse ox 91% on 11 L high flow cannula, white blood count is 26.7 hemoglobin 12.8 platelet count 281 BUN 31 creatinine 1.04 On 01/24/2024 patient is alert and oriented x 3. Patient still having some significant shortness of breath currently on 11 L nasal cannula. Cardiology, pu lmonary and infectious disease services are following. Patient remains on Cardizem drip. Patient remains on IV steroids and IV cefazolin. White blood cell 35.7, creatinine 1.18 bun 40. Current vital signs temp 97.8, heart 76, respiratory rate 26, blood pressure 112/73 with a pulse ox of 91% on 11 L On 01/25/2024 patient is alert and oriented x 3 patient reports some improvement with shortness of breath. Pulmonary cardiology and infectious disease services are following. Cardizem dean has been DC'd patient transition to p.o. Cardizekatey per cardiology continue IV antibiotics and steroids at this time.. Current vital signs temp 96.4, heart rate 74, respiratory rate 18, blood pressure 118/83 with a pulse ox of 97% on 10 L high flow. On 01/26/2024 patient was seen and examined on the medical floor he is alert and oriented x 3 in mild respiratory distress, he is maintained on high flow oxygen of 11 L/min, he is still complaining of cough and chest discomfort otherwise he denies any complaints, there is no fever or chills no headache or dizziness no chest pain no nausea or vomiting no abdominal pain no diarrhea no blood in the stools no burning with urination no frequency or urgency and no hematuria. Testing for COVID was positive yesterday. Pulmonary and infectious disease are following. On 01/27/2024 patient is alert and oriented x 3 patient continued to having increase oxygen demands. Per nursing staff pulmonary services were notified patient currently on high flow [address] scan of chest this morning which showed diffuse groundglass opacities and correlation for atypical pneumonia. Patient remains on IV Kefzol and prednisone. Pulmonary and infectious disease services following. Cardiology also following On 01/28/2024 patient is alert and oriented x 3. Patient at this time is resting comfortably in bed. Patient remains on Airvo 60%. Temp 97.6, heart rate 95, respiratory rate 24, blood pressure 100/67. Pulmonary cardiology and infectious disease are following patient remains on IV Kefzol and Solu-Medrol On 01/29/2024 patient was seen and examined on the medical floor he is alert and oriented x 3 in no apparent distress,he is still maintained on high flow oxygen, he is complaining of generalized weakness and complaining of constipation he has very poor oral intake, there is no fever or chills no headache or dizziness no chest pain, he has shortness of breath with any activity no palpitation he has continuous cough no nausea or vomiting no abdominal pain no diarrhea and no urinary symptoms. On 01/30/2024 patient was seen and examined in the ICU, he is alert responsive in no apparent distress maintained on high flow oxygen via Airvo, he was transferred to ICU due to worsening shortness of breath, chest x-ray today revealed interval development of a large left-sided pneumothorax estimated at 40%, he underwent chest tube placement, on the left. His vital exam reveals a temperature of 97.5 pulse 108 respiration 33 blood pressure 133/82 pulse ox is 98% on high flow cannula with FiO2 of 50% On 01/31/2024 patient remains in the intensive care unit. Chest tube in place. Current vital signs temp 97.9, heart rate 84, respiratory rate 23, blood pressure 102/71 with a pulse ox of 97% on high flow of 40%. Patient remains s hort of breath. Patient denies chest pain. Patient denies nausea vomiting or diarrhea. Patient denies any urinary burning or frequency On 02/01/2024 patient is alert and oriented x 3. Patient remains in the intensive care unit. Tube remains in place. Current vital signs temp 97.7, heart rate 79, respiratory rate 24, blood pressure 117/76 with a pulse ox of 100% on 6 L high flow. Patient reports some improvement with shortness of breath. Patient denies chest pain. Patient denies nausea vomiting or diarrhea. On 02/02/2024 patient was seen and examined in the ICU, he is alert and oriented x 3 in no apparent distress, he is complaining of discomfort at the chest tube site, and complaining of shortness of breath otherwise he denies any complaints there is no fever or chills no headache or dizziness, no chest pain, he has occasional cough no nausea or vomiting no abdominal pain no diarrhea no urinary symptoms. Temperature is 97.4 pulse 90 respiration 23 blood pressure 106/78 pulse ox 95% on 4 L nasal cannula, white blood count 45.7 hemoglobin 11.1 platelet count 199 BUN 45 creatinine 0.89 On 02/03/2024 patient remains in the ICU alert and oriented x 3. Patient still has chest tube complaining of some discomfort at site. Speech services at bedside assessing swallow still recommending nectar thick liquids. Current vital signs temp 97.6, heart rate 93, respiratory rate 21. Patient denies chest pain or shortness of breath. Patient denies nausea vomiting or diarrhea. Patient denies any urinary burning and frequency. On 02/04/2024 patient was seen and examined in the intensive care unit, he is alert and oriented in no apparent distress, he is complaining of pain in the chest wall site of the chest tube otherwise he denies any complaints, there is no fever or chills no headache or dizziness no chest pain no shortness of breath no cough no nausea or vomiting no abdominal pain no diarrhea no urinary symptoms, temperature is 97.5 pulse 89 respiration 16 blood pressure 108/68 pulse ox 96% on 4 L nasal cannula. His white blood count is 28.9 hemoglobin 11.0 platelet count 147 sodium 136 potassium 3.9 chloride 111 CO2 23 BUN 30 creatinine 0.94 On 02/05/2024 patient remains in the intensive care unit alert and oriented 3. Patient is down to 2 L. Chest tube remains in place.Patient's appetite remains poor patient has been started on Megace. Will consult when necessary for possible discharge planning. Patient denies chest pain or shortness breath. Patient denies nausea vomiting or diarrhea. Patient denies any urinary burning or frequency. Current vital signs temp 97.6, heart rate 80, respiratory rate 19,, Blood pressure 98/70 with pulse ox 95% on 2 L On 02/06/2024 patient was seen and examined on the telemetry floor, he is alert and oriented x 3. Current vital signs temp 97.9, heart rate 93, respiratory rate 18. blood pressure 122/60 Patient denies chest pain or shortness of breath. Patient denies nausea vomiting or diarrhea. Patient denies any urinary burning and frequency. On 03/05/2024 patient is alert and oriented x 3. Patient complaining about difficulty sleeping melatonin added. Discharge planning to [facility]. Patient remain s with chest tube awaiting further recommendations from pulmonary services. Current vital signs temp 97.3, heart rate 78, respiratory rate 18, blood pressure 133/80 with a pulse ox of 93% on 4 L. Patient denies chest pain or shortness of breath. Patient denies nausea vomiting or diarrhea. Patient denies any urinary burning or frequency On 02/08/2024 patient is alert and oriented x 3. Cardiothoracic surgery was consulted due to left-sided pneumothorax with chest tube placement with continuous airleak at this time recommendations to continue wall suction and will monitor. Patient denies chest pain or shortness of breath. Patient denies nausea vomiting or diarrhea. Patient denies any urinary burning or frequency. Current temp 97.3, heart rate 68, respiratory rate 18, blood pressure 96/63 with a pulse ox of 92% on 4 L On 02/09/2024 patient is alert and oriented x 3. Patient was transferred to the intensive care unit last night due to large bloody bowel movement and hypotension. At this time patient's Eliquis has been on hold. Surgical services have been consulted. Patient denies chest pain or shortness of breath. Patient denies nausea vomiting or diarrhea. Patient denies any urinary burning or frequency. Patient may require norepinephrine for blood pressure support co ntinue ICU management at this time. Critical care services following On 02/10/2024 patient is alert and oriented x 3. Per nursing staff patient has had no further episodes of large-volume bloody bowel movement. Patient still having some hypotension. Patient was evaluated by surgical services Eliquis remains on hold hemoglobin remained stable continue monitoring at this time. Patient also being followed by cardiothoracic surgery chest tube remains to suction at this time. Patient denies chest pain or shortness of breath. Patient denies any urinary burning or frequency. Patient denies nausea vomiting or diarrhea. On 02/11/2024 patient was seen and examined in the ICU, he is alert and oriented x 3 in no apparent distress, he is still complaining of left-sided chest wall pain site of his chest tube, otherwise he denies any complaints there is no fever or chills no headache or dizziness no chest pain no shortness of breath no cough no nausea or vomiting no abdominal pain no diarrhea no blood in the stools no burning with urination no frequency or urgency and no hematuria, patient has very low oral intake, he was encouraged in length in regard to increasing his diet and taking some protein supplements, albumin is low to 1.7, alternatively patient may need a Dobbhoff tube with enteral feeding. Will continue to follow closely On 02/12/2024 patient is alert and oriented x 3 remains in the ICU. Patient remains on IV Lasix patient having increased lower extremity edema. Appetite remains poor. Current vital signs temp 98.7, heart rate 89, respiratory rate 19, blood pressure 88/52 with a pulse ox of 93% on Airvo 60%. Patient denies chest pain or shortness of breath. Patient denies nausea vomiting or diarrhea. Patient denies any urinary burning or frequency On 02/13/2024 patient's alert and oriented remains in the intensive care unit. Remains on IV Lasix. Patient also remains on IV Zosyn. Multiple consults following. Patient remains on Airvo 60% and patient was started on Levophed for pressure support On 02/14/2024 patient is alert and oriented x 3. Edema has slightly improved. Patient remains on Levophed. Current vital signs temp 98.0, heart rate 94, r espiratory rate 19, blood pressure 102/73 with a pulse ox of 96% on Airvo 60%. Hemoglobin 8.9, white blood cell 28.6, creatinine 1.14 bun 33 On 02/15/2024 patient is alert and oriented x 3 patient remains in the intensive care unit Levophed getting weaned down per nursing staff chest tube has been removed. Patient remains on Airvo. Current vital signs temp 98.2, heart 81, respiratory rate 15, blood pressure 105/67 with a pulse ox of 112/64. Pulse ox 94% with an Airvo FiO2 of 50%. Patient denies chest pain or shortness of breath. Patient denies nausea vomiting or diarrhea. Patient denies any urinary burning or frequency. On 02/16/2024 patient was seen and examined in the ICU he is alert and oriented x 3 in no apparent distress there is no fever or chills no headache or dizziness no chest pain no shortness of breath, at rest patient is maintained on Airvo, high flow oxygen, no nausea or vomiting no abdominal pain no diarrhea no urinary symptoms. On 02/17/2024 patient remains in the ICU alert and oriented x 3. Patient is down to high flow and Levophed has been turned off. Per critical care will continue to monitor patient in the ICU for an additional 24 hours. Current temp 97.4, heart rate 87, respiratory rate 17, blood pressure 114/62 with a pulse ox of 95% on high flow 6 L. Patient denies chest pain or shortness of breath. Patient denies nausea vomiting or diarrhea. Patient denies any urinary burning or frequency On 02/18/2024 patient was seen and examined on the telemetry floor, he is alert and oriented x 3 in no apparent distress, he is still complaining of shortness of breath , he is maintained on oxygen 4 L via nasal cannula , he is complaining of chest wall pain site of his old chest tube , otherwise he denies any complaints at this time , there is no fever or chills, no headache or dizziness no chest pain he has occasional cough no nausea or vomiting no abdominal pain no diarrhea and no urinary symptoms, patient has been bedbound for several days, he will need to transfer to rehab when medically clear. On 02/19/2024 patient is alert and oriented x 3. At this time patient denies chest pain or shortness of breath. Patient denies nausea vomiting or diarrhea. Patient denies any urinary burning and frequency. Current vital signs temp 97.3 , heart rate 77, respiratory rate 17, blood pressure 110/74 with a pulse ox of 94% on 4 L On 02/20/2024 patient was seen and examined on the medical floor he is alert and oriented x 3 in no apparent distress he is maintained on oxygen 4 L via nasal cannula, he denies any chest pain or shortness of breath at rest vital exam reveals a temperature of 97.4 pulse 85 respiration 13 blood pressure 108/74 pulse ox 95% on 4 L nasal cannula, white blood count 29.95 hemoglobin 9.9 platelet count 237 BUN 37.5 creatinine 1.2, medication and labs were reviewed continue with current management will recheck in a.m. On 02/21/2024 patient is alert and oriented 3. Patient reports some increased shortness of breath intubated have been adjusted per ID will order chest x- ray.current vital signs temp 97.3, heart rate 97, respiratory rate 20, blood pressure 99/60 with pulse ox 92% on 4 L. Infectious disease, pulmonary and surgical services are following On 02/22/2024 patient is alert and oriented x 3. Patient reports some improvement. Chest x-ray showing interstitial infiltrate. Pulmonary and infec tious disease services are following. Current vital signs temp 97.6, heart rate 89, respiratory rate 20, blood pressure 97/66 with a pulse ox of 95% on 4 L patient denies chest pain. Patient denies nausea vomiting or diarrhea. Patient denies any urinary burning or frequency. On 02/23/2024 patient was seen and examined on the medical floor he is alert and oriented x 3 in no apparent distress he is still complaining of cough and shortness of breath otherwise he denies any complaints there is no fever or chills no headache or dizziness no chest pain no nausea or vomiting no abdominal pain no diarrhea and no urinary symptoms On 02/25/2024 patient is alert and oriented x 3. Patient still having some shortness of breath. Patient remains on Bactrim, IV Rocephin and Diflucan. Pulmonary and infectious disease services are following. Current vital signs temp 97.0, heart rate 94, respiratory rate 16, blood pressure 90/48 with a pulse ox of 94% on 4 L. On 02/26/2024 patient was seen and examined on the medical floor he is alert and oriented x 3 in no apparent distress he is still complaining of shortness of breath otherwise he denies any complaints there is no fever or chills no head ache or dizziness no chest pain he has occasional cough no nausea or vomiting no abdominal pain no diarrhea and no urinary symptoms. He remains on oxygen 4 L via nasal cannula. Patient is improving gradually. On 02/27/2024 patient is alert and oriented x 3 patient is improving gradually. Patient denies any chest pain or shortness of breath. Patient denies nausea vomiting or diarrhea. Patient denies any urinary burning or frequency. Current vital signs temp 97.8, heart rate 91, respiratory rate 93/55 with a pulse ox of 96% on 4 L On 02/28/2024 patient is alert and oriented x 3. White blood cell 26. Current vital signs temp 97.7, heart rate 85, respiratory rate 18, blood pressure 105/66 with a pulse ox of 94% on 4 L patient still having some shortness of breath. Patient denies chest pain. Patient denies nausea vomiting or diarrhea. Patient denies any urinary burning or frequency Dr. Day's group will be covering from 02/29/2024 to March 08, 2024 Objective - Vital Signs Vital signs: Vital Signs Temp 97.4 F L 02/28/24 07:45 Pulse 111 H 02/28/24 07:45 Resp 24 02/28/24 07:45 BP 105/66 02/28/24 07:45 Pulse Ox 94 L 02/28/24 07:45 FiO2 40 02/16/24 12:48 Intake & Output 02/27/24 02/28/24 02/28/24 18:59 06:59 18:59 Output Total 475 500 Balance -475 -500 Weight 70.443 kg Output: Urine 475 500 Other: Voiding Method Indwelling Catheter Indwelling Catheter ABP, PAP, CO, CI - Last Documented Arterial Blood Pressure 122/71 - Exam In general patient is alert and oriented x 3 in no distress HEENT head normocephalic and atraumatic Neck is supple no JVD no goiter no lymphadenopathy no carotid bruit Chest examination reveals a scattered crackles bilaterally no wheezing Cardiac exam reveals irregular heart sounds S1 and S2 with tachycardia no gallops no murmurs Abdomen is soft nontender no organomegaly with normal bowel sounds Extremity exam reveals no edema no cyanosis or clubbing Neurological examination reveals no gross focal deficits - Labs CBC & Chem 7: 02/28/24 03:29 02/26/24 05:49 Labs: Abnormal Lab Results - Last 24 Hours (Table) 02/27/24 02/27/24 02/27/24 Range/Units 11:30 16:34 20:08 WBC (4.50-10.00) X 10*3/uL RBC (4.40-5.60) X 10*6/uL Hgb (13.0-17.0) g/dL Hct (39.6-50.0) % MCV (80.0-97.0) FL MCH (27.0-32.0) pg MCHC (32.0-37.0) g/dL RDW (11.5-14.5) % MPV (9.5-12.2) FL Immature Gran # (0.00-0.04) X 10*3/uL Neutrophils # (1.80-7.70) X 10*3/uL Monocytes # (0.20-1.00) X 10*3/uL Eosinophils # (0.04-0.35) X 10*3/uL Basophils # (0.00-0.10) X 10*3/uL POC Glucose (mg/dL) 125 H 121 H 147 H (70-110) mg/dL 02/28/24 02/28/24 Range/Units 03:29 06:28 WBC 26.00 H (4.50-10.00) X 10*3/uL RBC 2.73 L (4.40-5.60) X 10*6/uL Hgb 9.4 L (13.0-17.0) g/dL Hct 29.6 L (39.6-50.0) % MCV 108.4 H (80.0-97.0) FL MCH 34.4 H (27.0-32.0) pg MCHC 31.8 L (32.0-37.0) g/dL RDW 23.2 H (11.5-14.5) % MPV 13.6 H (9.5-12.2) FL Immature Gran # 0.62 H (0.00-0.04) X 10*3/uL Neutrophils # 22.17 H (1.80-7.70) X 10*3/uL Monocytes # 1.50 H (0.20-1.00) X 10*3/uL Eosinophils # 0.01 L (0.04-0.35) X 10*3/uL Basophils # 0.12 H (0.00-0.10) X 10*3/uL POC Glucose (mg/dL) 126 H (70-110) mg/dL Assessment and Plan Assessment: 1. Pneumonia with sepsis as evident by elevated lactic acid and leukocytosis 2. Acute kidney injury secondary to sepsis and dehydration, kidney function improved significantly since admission 3. History of atrial fibrillation maintained on Eliquis, with episodes of rapid ventricular response during this presentation 4. History of CHF 5. Acute hypoxic respiratory failure requiring high flow oxygen supplements pulmonary are following 6. Elevated liver enzymes we will hold statin at this time and recheck 7. Positive blood culture for Staphylococcus aureus, consultation for infectiou s disease was initiated 8. COVID-19 positive 9. Left-sided pneumothorax requiring left-sided chest tube insertion 10. GI bleed. Surgical services consulted Eliquis currently on hold 11. Hypotension secondary to above patient currently in ICU may require vasopressors for blood pressure support DVT prophylaxis Eliquis. GI prophylaxis Protonix Pulmonary services consulted, infectious disease cardiology consultation Blood and sputum cultures ordered Repeat labs ordered
[2024-02-28 10:03] LABS: ALT 272 U/L (10-49); AST 252 U/L (14-35); Albumin 1.9 g/dL (3.8-4.9); Albumin/Globulin Ratio 0.73 Ratio (1.60-3.17); Alkaline Phosphatase 859 U/L (41-126); BUN/Creat Ratio 34.44 Ratio (12.00-20.00); Calcium 7.4 mg/dL (8.7-10.3); Carbon Dioxide 26.8 mmol/L (21.6-31.8); Chloride 102 mmol/L (96-109); Globulin 2.6 g/dL (1.6-3.3); Glucose 73 mg/dL (70-110); Potassium 5.1 mmol/L (3.5-5.5); Sodium 137 mmol/L (135-145); Total Bilirubin 0.7 mg/dL (0.3-1.2); Total Protein 4.5 g/dL (6.2-8.2)
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
[2024-02-28 11:51] LABS: Glucose,Whole Blood 379 mg/dL (70-110)
[2024-02-28] MEDS ORDERED: RX INFO: IV CONTRAST WAS GIVEN 1 EACH MISC MISCELLANE PRN (15:18)
[2024-02-28] MEDS: COLLAGENASE 250 UNIT/GM OINTMENT 30 GM TUBE TOPICAL SCH (15:51)
--- NOTE | 2024-02-28 15:55 | P.PN ---
Subjective Progress Note Date: 02/27/24 Principal diagnosis: Reason for follow-up is left-sided pneumonia and MSSA bacteremia Patient is a 73-year-old with a past medical history significant for atrial fibrillation heart failure , close head injury patient presenting to the hospital for evaluation of increasing shortness of breath left lower chest pain, patient has been diagnosed with left-sided pneumonia and did have a positive blood culture with MSSA prompted this consultation.Patient did have a chest x-ray morning of 01/30/2024 with evidence of left-sided pneumothorax in this patient who status post chest tube placement on 01/30/2024 by pulmonary On today's evaluation that is 02/27/2024, patient has been afebrile, patient is breathing comfortably and is currently on 4 L, oxygen, patient denies having any worsening cough no chest pain, patient denies nausea vomiting or diarrhea and no abdominal pain. Patient white count is down to 22.92 creatinine 1.0 Objective - Vital Signs Vital signs: Vital Signs Temp 97.8 F 02/27/24 06:50 Pulse 86 02/27/24 12:21 Resp 18 02/27/24 06:50 BP 89/52 02/27/24 12:21 Pulse Ox 97 02/27/24 06:50 FiO2 40 02/16/24 12:48 Intake & Output 02/26/24 02/27/24 02/27/24 18:59 06:59 18:59 Output Total 530 225 Balance -530 -225 Weight 71.1 kg Output: Urine 530 225 Uretheral (Juares) 530 Other: Voiding Method Indwelling Catheter Indwelling Catheter Indwelling Catheter # Voids 1 ABP, PAP, CO, CI - Last Documented Arterial Blood Pressure 122/71 - Exam GENERAL DESCRIPTION: An elderly male lying in bed in no distress RESPIRATORY SYSTEM: Unlabored breathing , close bedside left side HEART: S1 S2 regular rate and rhythm , ABDOMEN: Soft , no tenderness EXTREMITIES: No edema feet - Labs CBC & Chem 7: 02/28/24 03:29 02/28/24 03:29 Labs: Abnormal Lab Results - Last 24 Hours (Table) 02/26/24 02/27/24 Range/Units 16:46 11:30 POC Glucose (mg/dL) 193 H 125 H (70-110) mg/dL Assessment and Plan (1) Bacteremia due to methicillin susceptible Staphylococcus aureus (MSSA) Current Visit: Yes Status: Acute Code(s): R78.81 - BACTEREMIA; B95.61 - METHICILLIN SUSCEP STAPH INFCT CAUSING DIS CLASSD ELSWHR SNOMED Code(s): 893103696 (2) Pneumonia Current Visit: Yes Status: Acute Code(s): J18.9 - PNEUMONIA, UNSPECIFIED ORGANISM SNOMED Code(s): 174528293 (3) Leukocytosis Current Visit: Yes Status: Acute Code(s): D72.829 - ELEVATED WHITE BLOOD CELL COUNT, UNSPECIFIED SNOMED Code(s): 152131118 Plan: 1patient presented to hospital with sepsis in this patient who did have leukocytosis tachycardia meeting criteria for SIRS source is left lower lobe pneumonia 2-patient with MSSA bacteremia source likely pneumonia, blood culture repeat has been negative so far 3-patient CT of the chest did not show any empyema echocardiogram did not show any valvular abnormalities repeat blood culture negative 4patient did have complication of left-sided pneumothorax s/p is chest tube placement. Patient did have persistent leak CT surgery is closely following the patient considered to be high risk for any surgical procedure 5 the patient with leukocytosis possible component of oropharyngeal candidiasis, the patient white count trending down we will continue Rocephin and Diflucan and monitor clinical course closely Dictation was produced using [employer] dictation software. please excuse any grammatical, word or spelling errors. Time with Patient: Less than 30
--- NOTE | 2024-02-28 15:58 | P.PN ---
Subjective Progress Note Date: 02/28/24 Principal diagnosis: Reason for follow-up is left-sided pneumonia and MSSA bacteremia Patient is a 73-year-old with a past medical history significant for atrial fibrillation heart failure , close head injury patient presenting to the hospital for evaluation of increasing shortness of breath left lower chest pain, patient has been diagnosed with left-sided pneumonia and did have a positive blood culture with MSSA prompted this consultation.Patient did have a chest x-ray morning of 01/30/2024 with evidence of left-sided pneumothorax in this patient who status post chest tube placement on 01/30/2024 by pulmonary On today's evaluation that is 02/28/2024, Patient is afebrile this morning patient denies having any chest pain shortness of breath or any worsening cough, the patient is currently on 4 L current oxygen, patient denies any abdominal pain no diarrhea no nausea no vomiting. Patient white count up to 26,000 creatinine 0.9 Objective - Vital Signs Vital signs: Vital Signs Temp 97.4 F L 02/28/24 07:45 Pulse 111 H 02/28/24 07:45 Resp 24 02/28/24 07:45 BP 105/66 02/28/24 07:45 Pulse Ox 94 L 02/28/24 07:45 FiO2 40 02/16/24 12:48 Intake & Output 02/27/24 02/28/24 02/28/24 18:59 06:59 18:59 Output Total 475 500 Balance -475 -500 Weight 70.443 kg Output: Urine 475 500 Other: Voiding Method Indwelling Catheter Indwelling Catheter Indwelling Catheter ABP, PAP, CO, CI - Last Documented Arterial Blood Pressure 122/71 - Exam GENERAL DESCRIPTION: An elderly male lying in bed in no distress RESPIRATORY SYSTEM: Unlabored breathing , close bedside left side HEART: S1 S2 regular rate and rhythm , ABDOMEN: Soft , no tenderness EXTREMITIES: Right lower extremity did have a necrotic wound with slough tissue and also wound on the left leg was noticed but to lesser extent - Labs CBC & Chem 7: 02/28/24 03:29 02/28/24 03:29 Labs: Abnormal Lab Results - Last 24 Hours (Table) 02/27/24 02/27/24 02/28/24 Range/Units 16:34 20:08 03:29 WBC 26.00 H (4.50-10.00) X 10*3/uL RBC 2.73 L (4.40-5.60) X 10*6/uL Hgb 9.4 L (13.0-17.0) g/dL Hct 29.6 L (39.6-50.0) % MCV 108.4 H (80.0-97.0) FL MCH 34.4 H (27.0-32.0) pg MCHC 31.8 L (32.0-37.0) g/dL RDW 23.2 H (11.5-14.5) % MPV 13.6 H (9.5-12.2) FL Immature Gran # 0.62 H (0.00-0.04) X 10*3/uL Neutrophils # 22.17 H (1.80-7.70) X 10*3/uL Monocytes # 1.50 H (0.20-1.00) X 10*3/uL Eosinophils # 0.01 L (0.04-0.35) X 10*3/uL Basophils # 0.12 H (0.00-0.10) X 10*3/uL BUN (9.0-27.0) mg/dL BUN/Creatinine Ratio (12.00-20.00) Ratio POC Glucose (mg/dL) 121 H 147 H (70-110) mg/dL Calcium (8.7-10.3) mg/dL AST (14-35) U/L ALT (10-49) U/L Alkaline Phosphatase (41-126) U/L Total Protein (6.2-8.2) g/dL Albumin (3.8-4.9) g/dL Albumin/Globulin Ratio (1.60-3.17) Ratio 02/28/24 02/28/24 02/28/24 Range/Units 03:29 06:28 11:50 WBC (4.50-10.00) X 10*3/uL RBC (4.40-5.60) X 10*6/uL Hgb (13.0-17.0) g/dL Hct (39.6-50.0) % MCV (80.0-97.0) FL MCH (27.0-32.0) pg MCHC (32.0-37.0) g/dL RDW (11.5-14.5) % MPV (9.5-12.2) FL Immature Gran # (0.00-0.04) X 10*3/uL Neutrophils # (1.80-7.70) X 10*3/uL Monocytes # (0.20-1.00) X 10*3/uL Eosinophils # (0.04-0.35) X 10*3/uL Basophils # (0.00-0.10) X 10*3/uL BUN 31.0 H (9.0-27.0) mg/dL BUN/Creatinine Ratio 34.44 H (12.00-20.00) Ratio POC Glucose (mg/dL) 126 H 379 H (70-110) mg/dL Calcium 7.4 L (8.7-10.3) mg/dL AST 252 H (14-35) U/L ALT 272 H (10-49) U/L Alkaline Phosphatase 859 H (41-126) U/L Total Protein 4.5 L (6.2-8.2) g/dL Albumin 1.9 L (3.8-4.9) g/dL Albumin/Globulin Ratio 0.73 L (1.60-3.17) Ratio Assessment and Plan (1) Bacteremia due to methicillin susceptible Staphylococcus aureus (MSSA) Current Visit: Yes Status: Acute Code(s): R78.81 - BACTEREMIA; B95.61 - METHICILLIN SUSCEP STAPH INFCT CAUSING DIS CLASSD ELSWHR SNOMED Code(s): 197476780 (2) Pneumonia Current Visit: Yes Status: Acute Code(s): J18.9 - PNEUMONIA, UNSPECIFIED ORGANISM SNOMED Code(s): 294216629 (3) Leukocytosis Current Visit: Yes Status: Acute Code(s): D72.829 - ELEVATED WHITE BLOOD CELL COUNT, UNSPECIFIED SNOMED Code(s): 319826511 Plan: 1patient presented to hospital with sepsis in this patient who did have leukocytosis tachycardia meeting criteria for SIRS source is left lower lobe pneumonia blood culture positive for MSSA repeat blood culture negative and the patient has completed antibiotic therapy for his bacteremia, CT of the chest did not show any empyema echocardiogram did not show any valvular abnormalities repeat blood culture negative, subsequent developing left-sided pneumothorax s/p is chest tube placement. Patient did have persistent leak CT surgery is closely following the patient considered to be high risk for any surgical procedure 2 the patient now seem to have problem with persistent elevated white count source is multifactorial sputum is positive for E. coli and Aleyda and also have a necrotic wound to the bilateral extremities more marked to the right leg likely pressure ulcer we will start treatment with the Santyl, get vascular surgery evaluation for debridement we will also check a CT of the chest to patient evidence of any residual pneumonia for now continue with Rocephin and Diflucan and monitor white count closely Dictation was produced using [employer] dictation software. please excuse any grammatical, word or spelling errors. Time with Patient: Less than 30
[2024-02-28 16:06] LABS: Appearance,Urine Cloudy (Clear); Bilirubin,Urine 1+ (Negative); Blood,Urine Large (Negative); Color,Urine Light Red; Glucose,Urine (UA) Negative (Negative); Hyaline Casts,Urine 21 /lpf (0-2); Ketones,Urine Negative (Negative); Leukocyte Esterase,Urine Moderate (Negative); Nitrite,Urine Negative (Negative); PH, Urine 6.5 (5.0-8.0); Protein,Urine 1+ (Negative); RBC,Urine >182 /hpf (0-5); Squamous Epithelial Cell,Urine 1 /hpf (0-4); WBC,Urine 61 /hpf (0-5)
--- NOTE | 2024-02-28 16:37 | CT ---
EXAMINATION TYPE: CT chest w con DATE OF EXAM: 02/28/2024 4:26 PM COMPARISON: CT 02/06/2024 CLINICAL INDICATION: Male, 73 years old with history of pneumonia/empyema; PHH, Pneumonia/empyema. TECHNIQUE: Multiple axial images were obtained through the chest. Sagittal and coronal reformats were created for review. MIP was performed on a separate workstation. Contrast used:100cc mL of Isovue 300 with IV Contrast (None if empty) Oral contrast used: (None if empty) CT DLP: 292.9 mGycm, Automated exposure control for dose reduction was used. FINDINGS: LUNGS/ PLEURA: Small bilateral pleural effusions are present. There is airspace opacities and pulmona ry vascular congestion with diffuse ground glass opacities superimposed centrilobular emphysema alonso es. Left lower lung pulmonary nodule measuring 15 mm. Pleural effusions have a simple appearance no s plit pleural sign and can be visualized to suggest empyema. Free fluid is seen in the left major fiss ure. AIRWAY: Patent and unremarkable. HEART: Size within normal limits. MEDIASTINUM: No gross evidence of adenopathy. Scattered prominent lymph nodes throughout the mediasti num thought to be secondary to acute infectious process and/or congestive heart failure changes or ac commodation of those findings.. VASCULATURE: Atherosclerotic calcifications are present throughout the aorta and its branches. MUSCULOSKELETAL: Moderate disc degeneration changes are present throughout the thoracolumbar spine. SOFT TISSUES/LYMPH NODES: Unremarkable. LOWER NECK: No significant findings. UPPER ABDOMEN: Gallstone in the gallbladder neck. Complex left renal cyst 20 mm. IMPRESSION: 1. Diffuse interstitial opacities and groundglass opacity throughout the lungs. Findings progressing from priors dating back to 01/26/2024 majority of the findings are new from 04/30/2019. Given cardiom egaly and bilateral pleural effusions correlate for a component of congestive heart failure superimpo sed on atypical pneumonia. 2. Stable left lower lung pulmonary nodule which is similar in size dating back to at least 2019 and likely benign granulomatous change. 3. Mediastinal lymphadenopathy likely secondary to infectious process happening. 4. Complex left renal cyst. Further evaluation with MRI recommended after acute airspace disease pro cess recommended. [facility], , 02/28/2024 4:35 PM
[2024-02-28 16:43] LABS: Glucose,Whole Blood 277 mg/dL (70-110)
[2024-02-28 20:39] LABS: Glucose,Whole Blood 68 mg/dL (70-110)
[2024-02-28 22:05] LABS: Glucose,Whole Blood 93 mg/dL (70-110)
[2024-02-29 06:10] LABS: Glucose,Whole Blood 114 mg/dL (70-110)
[2024-02-29 09:34] LABS: Basophils # (A) 0.11 X 10*3/uL (0.00-0.10); Basophils % (A) 0.4 %; Eosinophils # (A) 0 X 10*3/uL (0.04-0.35); Eosinophils % (A) 0 %; HCT 29.6 % (39.6-50.0); HGB 9.4 g/dL (13.0-17.0); Lymphocytes # (A) 1.55 X 10*3/uL (0.90-5.00); Lymphocytes % (A) 5.6 %; MCH 34.1 pg (27.0-32.0); MCHC 31.8 g/dL (32.0-37.0); MCV 107.2 FL (80.0-97.0); Mean Platelet Volume 13.6 FL (9.5-12.2); Monocytes # (A) 1.57 X 10*3/uL (0.20-1.00); Monocytes % (A) 5.7 %; NRBC Per 100 WBC 0 X 10*3/uL (0.00-0.01); Neutrophils # (A) 23.59 X 10*3/uL (1.80-7.70); Platelet Count 275 X 10*3/uL (140-440); RBC 2.76 X 10*6/uL (4.40-5.60); RDW 22.9 % (11.5-14.5); WBC 27.46 X 10*3/uL (4.50-10.00)
[2024-02-29 10:16] LABS: ALT 345 U/L (10-49); AST 350 U/L (14-35); Albumin/Globulin Ratio 0.74 Ratio (1.60-3.17); Alkaline Phosphatase 1227 U/L (41-126); Blood Urea Nitrogen 30.1 mg/dL (9.0-27.0); Calcium 7.7 mg/dL (8.7-10.3); Carbon Dioxide 25.6 mmol/L (21.6-31.8); Chloride 101 mmol/L (96-109); Globulin 2.7 g/dL (1.6-3.3); Glucose 70 mg/dL (70-110); Potassium 5.8 mmol/L (3.5-5.5); Sodium 136 mmol/L (135-145); Total Bilirubin 1.1 mg/dL (0.3-1.2); Total Protein 4.7 g/dL (6.2-8.2)
--- NOTE | 2024-02-29 10:35 | P.PN ---
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 the documentation and the assessment and plan as written. Number of minutes spent on the visit: 10 Dictation was produced using [employer] dictation software. Please excuse any grammatical, word or spelling errors.
--- NOTE | 2024-02-29 11:02 | P.PN ---
Subjective Progress Note Date: 02/29/24 NAEON. No N/V. No F/C. No SOB or CP. No abdominal pain. Endorses flatus and BM. No melena or hematochezia. Objective - Vital Signs Vital signs: Vital Signs Temp 98.1 F 02/29/24 07:05 Pulse 93 02/29/24 07:05 Resp 17 02/29/24 07:05 BP 103/67 02/29/24 07:05 Pulse Ox 96 02/29/24 07:05 FiO2 40 02/16/24 12:48 Intake & Output 02/28/24 02/29/24 02/29/24 18:59 06:59 18:59 Output Total 600 500 550 Balance -600 -500 -550 Weight 70.44 kg Output: Urine 600 500 550 Other: Voiding Method Indwelling Catheter Indwelling Catheter # Voids 2 ABP, PAP, CO, CI - Last Documented Arterial Blood Pressure 122/71 - Exam Gen: AxO, NAD Pulm: non-labored respirations Abd: soft, non-tender, non-distended. No guarding/rebound/rigidity Extrem: no edema seen - Labs CBC & Chem 7: 02/29/24 04:17 02/29/24 04:17 Labs: Abnormal Lab Results - Last 24 Hours (Table) 02/28/24 02/28/24 02/28/24 Range/Units 11:50 15:00 16:41 WBC (4.50-10.00) X 10*3/uL RBC (4.40-5.60) X 10*6/uL Hgb (13.0-17.0) g/dL Hct (39.6-50.0) % MCV (80.0-97.0) FL MCH (27.0-32.0) pg MCHC (32.0-37.0) g/dL RDW (11.5-14.5) % MPV (9.5-12.2) FL Immature Gran # (0.00-0.04) X 10*3/uL Neutrophils # (1.80-7.70) X 10*3/uL Monocytes # (0.20-1.00) X 10*3/uL Eosinophils # (0.04-0.35) X 10*3/uL Basophils # (0.00-0.10) X 10*3/uL Potassium (3.5-5.5) mmol/L BUN (9.0-27.0) mg/dL BUN/Creatinine Ratio (12.00-20.00) Ratio POC Glucose (mg/dL) 379 H 277 H (70-110) mg/dL Calcium (8.7-10.3) mg/dL AST (14-35) U/L ALT (10-49) U/L Alkaline Phosphatase (41-126) U/L Total Protein (6.2-8.2) g/dL Albumin (3.8-4.9) g/dL Albumin/Globulin Ratio (1.60-3.17) Ratio Urine Protein 1+ H (Negative) Urine Blood Large H (Negative) Urine Bilirubin 1+ H (Negative) Ur Leukocyte Esterase Moderate H (Negative) Urine RBC >182 H (0-5) /hpf Urine WBC 61 H (0-5) /hpf Urine WBC Clumps Few H (None) /hpf Hyaline Casts 21 H (0-2) /lpf 02/28/24 02/29/24 02/29/24 Range/Units 20:37 04:17 04:17 WBC 27.46 H (4.50-10.00) X 10*3/uL RBC 2.76 L (4.40-5.60) X 10*6/uL Hgb 9.4 L (13.0-17.0) g/dL Hct 29.6 L (39.6-50.0) % MCV 107.2 H (80.0-97.0) FL MCH 34.1 H (27.0-32.0) pg MCHC 31.8 L (32.0-37.0) g/dL RDW 22.9 H (11.5-14.5) % MPV 13.6 H (9.5-12.2) FL Immature Gran # 0.64 H (0.00-0.04) X 10*3/uL Neutrophils # 23.59 H (1.80-7.70) X 10*3/uL Monocytes # 1.57 H (0.20-1.00) X 10*3/uL Eosinophils # 0 L (0.04-0.35) X 10*3/uL Basophils # 0.11 H (0.00-0.10) X 10*3/uL Potassium 5.8 H (3.5-5.5) mmol/L BUN 30.1 H (9.0-27.0) mg/dL BUN/Creatinine Ratio 30.10 H (12.00-20.00) Ratio POC Glucose (mg/dL) 68 L (70-110) mg/dL Calcium 7.7 L (8.7-10.3) mg/dL AST 350 H (14-35) U/L ALT 345 H (10-49) U/L Alkaline Phosphatase 1227 H (41-126) U/L Total Protein 4.7 L (6.2-8.2) g/dL Albumin 2.0 L (3.8-4.9) g/dL Albumin/Globulin Ratio 0.74 L (1.60-3.17) Ratio Urine Protein (Negative) Urine Blood (Negative) Urine Bilirubin (Negative) Ur Leukocyte Esterase (Negative) Urine RBC (0-5) /hpf Urine WBC (0-5) /hpf Urine WBC Clumps (None) /hpf Hyaline Casts (0-2) /lpf 02/29/24 Range/Units 06:09 WBC (4.50-10.00) X 10*3/uL RBC (4.40-5.60) X 10*6/uL Hgb (13.0-17.0) g/dL Hct (39.6-50.0) % MCV (80.0-97.0) FL MCH (27.0-32.0) pg MCHC (32.0-37.0) g/dL RDW (11.5-14.5) % MPV (9.5-12.2) FL Immature Gran # (0.00-0.04) X 10*3/uL Neutrophils # (1.80-7.70) X 10*3/uL Monocytes # (0.20-1.00) X 10*3/uL Eosinophils # (0.04-0.35) X 10*3/uL Basophils # (0.00-0.10) X 10*3/uL Potassium (3.5-5.5) mmol/L BUN (9.0-27.0) mg/dL BUN/Creatinine Ratio (12.00-20.00) Ratio POC Glucose (mg/dL) 114 H (70-110) mg/dL Calcium (8.7-10.3) mg/dL AST (14-35) U/L ALT (10-49) U/L Alkaline Phosphatase (41-126) U/L Total Protein (6.2-8.2) g/dL Albumin (3.8-4.9) g/dL Albumin/Globulin Ratio (1.60-3.17) Ratio Urine Protein (Negative) Urine Blood (Negative) Urine Bilirubin (Negative) Ur Leukocyte Esterase (Negative) Urine RBC (0-5) /hpf Urine WBC (0-5) /hpf Urine WBC Clumps (None) /hpf Hyaline Casts (0-2) /lpf Assessment and Plan Assessment: Patient is a 73 year old male who presents with GIB, now resolved Plan: -Diet as tolerated -IVF hydration -Trend Hb -PRN pain and nausea control -No acute surgical intervention Michael Beal M.D. General Surgery
--- NOTE | 2024-02-29 11:47 | P.PN ---
Subjective Rodriguez Jackson, is a 73-year-old male who presented to [facility] emergency room with a chief complaint of worsening shortness of breath, patient stated that he fell 2 weeks ago, he was complaining of left-sided rib pain especially when he takes a deep breath. He was also complaining of cough otherwise he denies any complaints. He was evaluated in the emergency room vital examination on presentation revealed a temperature of 98.8 pulse 118 respiration 18 blood pressure 130/78 pulse ox 97% on 10 L nonrebreather mask Laboratory data revealed a white blood count of 20.8 hemoglobin 12.2 platelet count 310 sodium 134 potassium 3.4 chloride 102 BUN 51 creatinine 1.77 AST 188 ALT 135 troponin 0.012 Testing in the emergency room revealed EKG done in the emergency room revealed atrial fibrillation with rapid ventricular response, chest x-ray revealed patchy left and right lower lobe infiltrates worse on the left. Patient was admitted to medical floor for further evaluation and treatment, pulmonary consultation and cardiology consultation were requested. On 01/23/2024 patient was seen and examined on the medical floor he is alert and oriented x 3 in no apparent distress he reports mild improvement in his shortness of breath, he is still complaining of cough and complaining of chest wall pain otherwise he denies any complaints there is no fever or chills no headache or dizziness no nausea or vomiting no abdominal pain no diarrhea no blood in the stools no burning with urination no frequency or urgency and no hematuria. His temperature is 98.8 pulse 108 respiration 26 blood pressure 138/92 pulse ox 91% on 11 L high flow cannula, white blood count is 26.7 hemoglobin 12.8 platelet count 281 BUN 31 creatinine 1.04 On 01/24/2024 patient is alert and oriented x 3. Patient still having some significant shortness of breath currently on 11 L nasal cannula. Cardiology, pulmonary and infectious disease services are following. Patient remains on Cardizem drip. Patient remains on IV steroids and IV cefazolin. White blood cell 35.7, creatinine 1.18 bun 40. Current vital signs temp 97.8, heart 76, respiratory rate 26, blood pressure 112/73 with a pulse ox of 91% on 11 L On 01/25/2024 patient is alert and oriented x 3 patient reports some improvement with shortness of breath. Pulmonary cardiology and infectious disease services are following. Cardizem drip has been DC'd patient transition to p.o. Cardizem per cardiology continue IV antibiotics and steroids at this time.. Current vital signs temp 96.4, heart rate 74, respiratory rate 18, blood pressure 118/83 with a pulse ox of 97% on 10 L high flow. On 01/26/2024 patient was seen and examined on the medical floor he is alert and oriented x 3 in mild respiratory distress, he is maintained on high flow oxygen of 11 L/min, he is still complaining of cough and chest discomfort otherwise he denies any complaints, there is no fever or chills no headache or dizziness no chest pain no nausea or vomiting no abdominal pain no diarrhea no blood in the s tools no burning with urination no frequency or urgency and no hematuria. Testing for COVID was positive yesterday. Pulmonary and infectious disease are following. On 01/27/2024 patient is alert and oriented x 3 patient continued to having increase oxygen demands. Per nursing staff pulmonary services were notified patient currently on high flow [address] scan of chest this morning which showed diffuse groundglass opacities and correlation for atypical pneumonia. Patient remains on IV Kefzol and prednisone. Pulmonary and infectious disease services following. Cardiology also following On 01/28/2024 patient is alert and oriented x 3. Patient at this time is resting comfortably in bed. Patient remains on Airvo 60%. Temp 97.6, heart rate 95, respiratory rate 24, blood pressure 100/67. Pulmonary cardiology and infectious disease are following patient remains on IV Kefzol and Solu-Medrol On 01/29/2024 patient was seen and examined on the medical floor he is alert and oriented x 3 in no apparent distress,he is still maintained on high flow oxygen, he is complaining of generalized weakness and complaining of constipation he has very poor oral intake, there is no fever or chills no headache or dizziness no chest pain, he has shortness of breath with any activity no palpitation he has continuous cough no nausea or vomiting no abdominal pain no diarrhea and no uri nary symptoms. On 01/30/2024 patient was seen and examined in the ICU, he is alert responsive in no apparent distress maintained on high flow oxygen via Airvo, he was transferred to ICU due to worsening shortness of breath, chest x-ray today revealed interval development of a large left-sided pneumothorax estimated at 40%, he underwent chest tube placement, on the left. His vital exam reveals a temperature of 97.5 pulse 108 respiration 33 blood pressure 133/82 pulse ox is 98% on high flow cannula with FiO2 of 50% On 01/31/2024 patient remains in the intensive care unit. Chest tube in place. Current vital signs temp 97.9, heart rate 84, respiratory rate 23, blood pressure 102/71 with a pulse ox of 97% on high flow of 40%. Patient remains short of breath. Patient denies chest pain. Patient denies nausea vomiting or diarrhea. Patient denies any urinary burning or frequency On 02/01/2024 patient is alert and oriented x 3. Patient remains in the intensive care unit. Tube remains in place. Current vital signs temp 97.7, heart rate 79, respiratory rate 24, blood pressure 117/76 with a pulse ox of 100% on 6 L high flow. Patient reports some improvement with shortness of breat h. Patient denies chest pain. Patient denies nausea vomiting or diarrhea. On 02/02/2024 patient was seen and examined in the ICU, he is alert and oriented x 3 in no apparent distress, he is complaining of discomfort at the chest tube site, and complaining of shortness of breath otherwise he denies any complaints there is no fever or chills no headache or dizziness, no chest pain, he has occasional cough no nausea or vomiting no abdominal pain no diarrhea no urinary symptoms. Temperature is 97.4 pulse 90 respiration 23 blood pressure 106/78 pulse ox 95% on 4 L nasal cannula, white blood count 45.7 hemoglobin 11.1 platelet count 199 BUN 45 creatinine 0.89 On 02/03/2024 patient remains in the ICU alert and oriented x 3. Patient still has chest tube complaining of some discomfort at site. Speech services at bedside assessing swallow still recommending nectar thick liquids. Current vi donis signs temp 97.6, heart rate 93, respiratory rate 21. Patient denies chest pain or shortness of breath. Patient denies nausea vomiting or diarrhea. Patient denies any urinary burning and frequency. On 02/04/2024 patient was seen and examined in the intensive care unit, he is alert and oriented in no apparent distress, he is complaining of pain in the chest wall site of the chest tube otherwise he denies any complaints, there is no fever or chills no headache or dizziness no chest pain no shortness of breath no cough no nausea or vomiting no abdominal pain no diarrhea no urinary symptoms , temperature is 97.5 pulse 89 respiration 16 blood pressure 108/68 pulse ox 96% on 4 L nasal cannula. His white blood count is 28.9 hemoglobin 11.0 platelet count 147 sodium 136 potassium 3.9 chloride 111 CO2 23 BUN 30 creatinine 0.94 On 02/05/2024 patient remains in the intensive care unit alert and oriented 3. Patient is down to 2 L. Chest tube remains in place.Patient's appetite remains poor patient has been started on Megace. Will consult when necessary for possible discharge planning. Patient denies chest pain or shortness breath. Patient denies nausea vomiting or diarrhea. Patient denies any urinary burning or frequency. Current vital signs temp 97.6, heart rate 80, respiratory rate 19,, Blood pressure 98/70 with pulse ox 95% on 2 L On 02/06/2024 patient was seen and examined on the telemetry floor, he is alert and oriented x 3. Current vital signs temp 97.9, heart rate 93, respiratory rate 18. blood pressure 122/60 Patient denies chest pain or shortness of breath. Patient denies nausea vomiting or diarrhea. Patient denies any urinary burning and frequency. On 03/05/2024 patient is alert and oriented x 3. Patient complaining about difficulty sleeping melatonin added. Discharge planning to [facility]. Patient remains with chest tube awaiting further recommendations from pulmonary services. Current vital signs temp 97.3, heart rate 78, respiratory rate 18, bl ood pressure 133/80 with a pulse ox of 93% on 4 L. Patient denies chest pain or shortness of breath. Patient denies nausea vomiting or diarrhea. Patient denies any urinary burning or frequency On 02/08/2024 patient is alert and oriented x 3. Cardiothoracic surgery was consulted due to left-sided pneumothorax with chest tube placement with continuous airleak at this time recommendations to continue wall suction and will monitor. Patient denies chest pain or shortness of breath. Patient denies nausea vomiting or diarrhea. Patient denies any urinary burning or frequency. Current temp 97.3, heart rate 68, respiratory rate 18, blood pressure 96/63 with a pulse ox of 92% on 4 L On 02/09/2024 patient is alert and oriented x 3. Patient was transferred to the intensive care unit last night due to large bloody bowel movement and hypotension. At this time patient's Eliquis has been on hold. Surgical services have been consulted. Patient denies chest pain or shortness of breath. Patient denies nausea vomiting or diarrhea. Patient denies any urinary burning or frequency. Patient may require norepinephrine for blood pressure support continue ICU management at this time. Critical care services following On 02/10/2024 patient is alert and oriented x 3. Per nursing staff patient has had no further episodes of large-volume bloody bowel movement. Patient still having some hypotension. Patient was evaluated by surgical services Eliquis remains on hold hemoglobin remained stable continue monitoring at this time. Patient also being followed by cardiothoracic surgery chest tube remains to suction at this time. Patient denies chest pain or shortness of breath. Patient denies any urinary burning or frequency. Patient denies nausea vomiting or diarrhea. On 02/11/2024 patient was seen and examined in the ICU, he is alert and oriented x 3 in no apparent distress, he is still complaining of left-sided chest wall pain site of his chest tube, otherwise he denies any complaints there is no fever or chills no headache or dizziness no chest pain no shortness of breath no cough no nausea or vomiting no abdominal pain no diarrhea no blood in the stools no burning with urination no frequency or urgency and no hematuria, patient has very low oral intake, he was encouraged in length in regard to increasing his diet and taking some protein supplements, albumin is low to 1.7, alternatively patient may need a Dobbhoff tube with enteral feeding. Will continue to follow closely On 02/12/2024 patient is alert and oriented x 3 remains in the ICU. Patient remains on IV Lasix patient having increased lower extremity edema. Appetite remains poor. Current vital signs temp 98.7, heart rate 89, respiratory rate 19, blood pressure 88/52 with a pulse ox of 93% on Airvo 60%. Patient denies chest pain or shortness of breath. Patient denies nausea vomiting or diarrhea. Patient denies any urinary burning or frequency On 02/13/2024 patient's alert and oriented remains in the intensive care unit. Remains on IV Lasix. Patient also remains on IV Zosyn. Multiple consults fo llowing. Patient remains on Airvo 60% and patient was started on Levophed for pressure support On 02/14/2024 patient is alert and oriented x 3. Edema has slightly improved. Patient remains on Levophed. Current vital signs temp 98.0, heart rate 94, respiratory rate 19, blood pressure 102/73 with a pulse ox of 96% on Airvo 60%. Hemoglobin 8.9, white blood cell 28.6, creatinine 1.14 bun 33 On 02/15/2024 patient is alert and oriented x 3 patient remains in the intensive care unit Levophed getting weaned down per nursing staff chest tube has been removed. Patient remains on Airvo. Current vital signs temp 98.2, heart 81, respiratory rate 15, blood pressure 105/67 with a pulse ox of 112/64. Pulse ox 94% with an Airvo FiO2 of 50%. Patient denies chest pain or shortness of breath. Patient denies nausea vomiting or diarrhea. Patient denies any urinary burning or frequency. On 02/16/2024 patient was seen and examined in the ICU he is alert and oriented x 3 in no apparent distress there is no fever or chills no headache or dizziness no chest pain no shortness of breath, at rest patient is maintained on Airvo, high flow oxygen, no nausea or vomiting no abdominal pain no diarrhea no urinary symptoms. On 02/17/2024 patient remains in the ICU alert and oriented x 3. Patient is d own to high flow and Levophed has been turned off. Per critical care will continue to monitor patient in the ICU for an additional 24 hours. Current temp 97.4, heart rate 87, respiratory rate 17, blood pressure 114/62 with a pulse ox of 95% on high flow 6 L. Patient denies chest pain or shortness of breath. Patient denies nausea vomiting or diarrhea. Patient denies any urinary burning or frequency On 02/18/2024 patient was seen and examined on the telemetry floor, he is alert and oriented x 3 in no apparent distress, he is still complaining of shortness of breath , he is maintained on oxygen 4 L via nasal cannula , he is complaining of chest wall pain site of his old chest tube , otherwise he denies any complaints at this time , there is no fever or chills, no headache or dizziness no chest pain he has occasional cough no nausea or vomiting no abdominal pain no diarrhea and no urinary symptoms, patient has been bedbound for several days, he will need to transfer to rehab when medically clear. On 02/19/2024 patient is alert and oriented x 3. At this time patient denies chest pain or shortness of breath. Patient denies nausea vomiting or diarrhea. Patient denies any urinary burning and frequency. Current vital signs temp 97.3, heart rate 77, respiratory rate 17, blood pressure 110/74 with a pulse ox of 94% on 4 L On 02/20/2024 patient was seen and examined on the medical floor he is alert and oriented x 3 in no apparent distress he is maintained on oxygen 4 L via nasal cannula, he denies any chest pain or shortness of breath at rest vital exam reveals a temperature of 97.4 pulse 85 respiration 13 blood pressure 108/74 pulse ox 95% on 4 L nasal cannula, white blood count 29.95 hemoglobin 9.9 platelet count 237 BUN 37.5 creatinine 1.2, medication and labs were reviewed continue with current management will recheck in a.m. On 02/21/2024 patient is alert and oriented 3. Patient reports some increased shortness of breath intubated have been adjusted per ID will order chest x- ray.current vital signs temp 97.3, heart rate 97, respiratory rate 20, blood pressure 99/60 with pulse ox 92% on 4 L. Infectious disease, pulmonary and surgical services are following On 02/22/2024 patient is alert and oriented x 3. Patient reports some improvement. Chest x-ray showing interstitial infiltrate. Pulmonary and infectious disease services are following. Current vital signs temp 97.6, heart rate 89, respiratory rate 20, blood pressure 97/66 with a pulse ox of 95% on 4 L patient denies chest pain. Patient denies nausea vomiting or diarrhea. Patient denies any urinary burning or frequency. On 02/23/2024 patient was seen and examined on the medical floor he is alert and oriented x 3 in no apparent distress he is still complaining of cough and shortness of breath otherwise he denies any complaints there is no fever or chills no headache or dizziness no chest pain no nausea or vomiting no abdominal pain no diarrhea and no urinary symptoms On 02/25/2024 patient is alert and oriented x 3. Patient still having some shortness of breath. Patient remains on Bactrim, IV Rocephin and Diflucan. Pulmonary and infectious disease services are following. Current vital signs temp 97.0, heart rate 94, respiratory rate 16, blood pressure 90/48 with a pulse ox of 94% on 4 L. On 02/26/2024 patient was seen and examined on the medical floor he is alert and oriented x 3 in no apparent distress he is still complaining of shortness of breath otherwise he denies any complaints there is no fever or chills no headache or dizziness no chest pain he has occasional cough no nausea or vomiting no abdominal pain no diarrhea and no urinary symptoms. He remains on oxygen 4 L via nasal cannula. Patient is improving gradually. On 02/27/2024 patient is alert and oriented x 3 patient is improving gradually. Patient denies any chest pain or shortness of breath. Patient denies nausea vomiting or diarrhea. Patient denies any urinary burning or frequency. Current vital signs temp 97.8, heart rate 91, respiratory rate 93/55 with a pulse ox of 96% on 4 L On 02/28/2024 patient is alert and oriented x 3. White blood cell 26. Current vital signs temp 97.7, heart rate 85, respiratory rate 18, blood pressure 105/66 with a pulse ox of 94% on 4 L patient still having some shortness of breath. Patient denies chest pain. Patient denies nausea vomiting or diarrhea. Patient denies any urinary burning or frequency 02/28 Patient lying in bed looks comfortable, states abdominal pain controlled,. No nausea vomiting. He tolerated simple diet last night but has been refusing snacks since then. He is taking [place] frequently for pain control, Liver enzymes are trending up today , AST 350 and ALT 345 Bilirubin normal at 1.1. We took the Tylenol part of his [place] and started him on oxycodone. Hemoglobin stable at 9.4 Potassium slightly high at 5.8, treatment was given and we will going to check level patient remains on ceftriaxone and Eliquis Patient remains on ceftriaxone Objective - Vital Signs Vital signs: Vital Signs Temp 98.1 F 02/29/24 07:05 Pulse 93 02/29/24 07:05 Resp 17 02/29/24 07:05 BP 103/67 02/29/24 07:05 Pulse Ox 96 02/29/24 07:05 FiO2 40 02/16/24 12:48 Intake & Output 02/28/24 02/29/24 02/29/24 18:59 06:59 18:59 Output Total 600 500 550 Balance -600 -500 -550 Weight 70.44 kg Output: Urine 600 500 550 Other: Voiding Method Indwelling Catheter Indwelling Catheter Indwelling Catheter # Voids 2 ABP, PAP, CO, CI - Last Documented Arterial Blood Pressure 122/71 - Exam GENERAL: The patient is alert and oriented x3, not in any acute distress. Well developed, well nourished. HEENT: Pupils are round and equally reacting to light. EOMI. No scleral icterus. No conjunctival pallor. Normocephalic, atraumatic. No pharyngeal erythema. No thyromegaly. CARDIOVASCULAR: S1 and S2 present. No murmurs, rubs, or gallops. PULMONARY: Chest is clear to auscultation, no wheezing , no crackles. ABDOMEN: Soft, nontender, nondistended, normoactive bowel sounds. No palpable organomegaly. MUSCULOSKELETAL: No joint swelling or deformity. EXTREMITIES: No cyanosis, clubbing, or pedal edema. NEUROLOGICAL: Gross neurological examination did not reveal any focal deficits. SKIN: No rashes. no petechiae. - Labs CBC & Chem 7: 02/29/24 04:17 02/29/24 04:17 Labs: Abnormal Lab Results - Last 24 Hours (Table) 02/28/24 02/28/24 02/28/24 Range/Units 11:50 15:00 16:41 WBC (4.50-10.00) X 10*3/uL RBC (4.40-5.60) X 10*6/uL Hgb (13.0-17.0) g/dL Hct (39.6-50.0) % MCV (80.0-97.0) FL MCH (27.0-32.0) pg MCHC (32.0-37.0) g/dL RDW (11.5-14.5) % MPV (9.5-12.2) FL Immature Gran # (0.00-0.04) X 10*3/uL Neutrophils # (1.80-7.70) X 10*3/uL Monocytes # (0.20-1.00) X 10*3/uL Eosinophils # (0.04-0.35) X 10*3/uL Basophils # (0.00-0.10) X 10*3/uL Potassium (3.5-5.5) mmol/L BUN (9.0-27.0) mg/dL BUN/Creatinine Ratio (12.00-20.00) Ratio POC Glucose (mg/dL) 379 H 277 H (70-110) mg/dL Calcium (8.7-10.3) mg/dL AST (14-35) U/L ALT (10-49) U/L Alkaline Phosphatase (41-126) U/L Total Protein (6.2-8.2) g/dL Albumin (3.8-4.9) g/dL Albumin/Globulin Ratio (1.60-3.17) Ratio Urine Protein 1+ H (Negative) Urine Blood Large H (Negative) Urine Bilirubin 1+ H (Negative) Ur Leukocyte Esterase Moderate H (Negative) Urine RBC >182 H (0-5) /hpf Urine WBC 61 H (0-5) /hpf Urine WBC Clumps Few H (None) /hpf Hyaline Casts 21 H (0-2) /lpf 02/28/24 02/29/24 02/29/24 Range/Units 20:37 04:17 04:17 WBC 27.46 H (4.50-10.00) X 10*3/uL RBC 2.76 L (4.40-5.60) X 10*6/uL Hgb 9.4 L (13.0-17.0) g/dL Hct 29.6 L (39.6-50.0) % MCV 107.2 H (80.0-97.0) FL MCH 34.1 H (27.0-32.0) pg MCHC 31.8 L (32.0-37.0) g/dL RDW 22.9 H (11.5-14.5) % MPV 13.6 H (9.5-12.2) FL Immature Gran # 0.64 H (0.00-0.04) X 10*3/uL Neutrophils # 23.59 H (1.80-7.70) X 10*3/uL Monocytes # 1.57 H (0.20-1.00) X 10*3/uL Eosinophils # 0 L (0.04-0.35) X 10*3/uL Basophils # 0.11 H (0.00-0.10) X 10*3/uL Potassium 5.8 H (3.5-5.5) mmol/L BUN 30.1 H (9.0-27.0) mg/dL BUN/Creatinine Ratio 30.10 H (12.00-20.00) Ratio POC Glucose (mg/dL) 68 L (70-110) mg/dL Calcium 7.7 L (8.7-10.3) mg/dL AST 350 H (14-35) U/L ALT 345 H (10-49) U/L Alkaline Phosphatase 1227 H (41-126) U/L Total Protein 4.7 L (6.2-8.2) g/dL Albumin 2.0 L (3.8-4.9) g/dL Albumin/Globulin Ratio 0.74 L (1.60-3.17) Ratio Urine Protein (Negative) Urine Blood (Negative) Urine Bilirubin (Negative) Ur Leukocyte Esterase (Negative) Urine RBC (0-5) /hpf Urine WBC (0-5) /hpf Urine WBC Clumps (None) /hpf Hyaline Casts (0-2) /lpf 02/28/ Range/Units 06:09 WBC (4.50-10.00) X 10*3/uL RBC (4.40-5.60) X 10*6/uL Hgb (13.0-17.0) g/dL Hct (39.6-50.0) % MCV (80.0-97.0) FL MCH (27.0-32.0) pg MCHC (32.0-37.0) g/dL RDW (11.5-14.5) % MPV (9.5-12.2) FL Immature Gran # (0.00-0.04) X 10*3/uL Neutrophils # (1.80-7.70) X 10*3/uL Monocytes # (0.20-1.00) X 10*3/uL Eosinophils # (0.04-0.35) X 10*3/uL Basophils # (0.00-0.10) X 10*3/uL Potassium (3.5-5.5) mmol/L BUN (9.0-27.0) mg/dL BUN/Creatinine Ratio (12.00-20.00) Ratio POC Glucose (mg/dL) 114 H (70-110) mg/dL Calcium (8.7-10.3) mg/dL AST (14-35) U/L ALT (10-49) U/L Alkaline Phosphatase (41-126) U/L Total Protein (6.2-8.2) g/dL Albumin (3.8-4.9) g/dL Albumin/Globulin Ratio (1.60-3.17) Ratio Urine Protein (Negative) Urine Blood (Negative) Urine Bilirubin (Negative) Ur Leukocyte Esterase (Negative) Urine RBC (0-5) /hpf Urine WBC (0-5) /hpf Urine WBC Clumps (None) /hpf Hyaline Casts (0-2) /lpf Assessment and Plan Assessment: 1. Pneumonia with sepsis as evident by elevated lactic acid and leukocytosis. Continue with ceftriaxone 2. Acute kidney injury secondary to sepsis and dehydration, kidney function improved significantly since admission 3. History of atrial fibrillation maintained on Eliquis, with episodes of rapid ventricular response during this presentation 4. History of CHF 5. Acute hypoxic respiratory failure requiring high flow oxygen supplements pulmonary are following 6. Elevated liver enzymes we will hold statin at this time and recheck. Liver enzymes continue to trend up so we discontinued Tylenol 7. Positive blood culture for Staphylococcus aureus, consultation for infectious disease was initiated 8. COVID-19 positive 9. Left-sided pneumothorax requiring left-sided chest tube insertion 10. GI bleed. Surgical services consulted Eliquis currently on hold 11. Hypotension secondary to above patient currently in ICU may require vasopressors for blood pressure support DVT prophylaxis Eliquis. GI prophylaxis Protonix Pulmonary services consulted, infectious disease cardiology consultation Blood and sputum cultures ordered Repeat labs ordered
[2024-02-29] MEDS: INSULIN ASPART (NovoLOG) 100 UNIT/ML VIAL SQ ONE (11:57)
[2024-02-29] MEDS: DEXTROSE 50% SYRINGE 50 ML IVP STA (11:58)
[2024-02-29] MEDS: SODIUM BICARB 8.4% 50 ML SYR (1 MEQ/ML) IV STA (11:59)
[2024-02-29 12:11] LABS: Glucose,Whole Blood 119 mg/dL (70-110)
[2024-02-29] MEDS: SODIUM ZIRCONIUM CYCLOSILICATE 10 GM PACKET PO ONE (12:59)
[2024-02-29 17:15] LABS: Glucose,Whole Blood 75 mg/dL (70-110)
[2024-02-29 21:07] LABS: Glucose,Whole Blood 110 mg/dL (70-110)
[2024-02-29] MEDS: FUROSEMIDE 10 MG/ML 4 ML VIAL IV STA (22:45)
[2024-03-01 06:23] LABS: Glucose,Whole Blood 98 mg/dL (70-110)
[2024-03-01] MEDS: LACTULOSE 20 GM/30 ML CUP PO PRN (06:24)
--- NOTE | 2024-03-01 07:58 | P.PN ---
Subjective Progress Note Date: 02/29/24 Principal diagnosis: Reason for follow-up is left-sided pneumonia and MSSA bacteremia Patient is a 73-year-old with a past medical history significant for atrial fibrillation heart failure , close head injury patient presenting to the hospital for evaluation of increasing shortness of breath left lower chest pain, patient has been diagnosed with left-sided pneumonia and did have a positive blood culture with MSSA prompted this consultation.Patient did have a chest x-ray morning of 01/30/2024 with evidence of left-sided pneumothorax in this patient who status post chest tube placement on 01/30/2024 by pulmonary On today's evaluation that is 02/29/2024,the patient denies any fever or any chills, patient is breathing comfortably on 4 L nasal cannula oxygen, the patient denies chest pain shortness of breath and no worsening cough, patient denies abdominal pain, no nausea vomiting or diarrhea. Patient white count is up to 27.46 creatinine is 1.0 liver enzymes elevated urine was mildly positive cultures are pending CT of the chest been mostly diffuse interstitial opacity did not mention any empyema Objective - Vital Signs Vital signs: Vital Signs Temp 98.1 F 02/29/24 07:05 Pulse 93 02/29/24 07:05 Resp 17 02/29/24 07:05 BP 103/67 02/29/24 07:05 Pulse Ox 96 02/29/24 07:05 FiO2 40 02/16/24 12:48 Intake & Output 02/28/24 02/29/24 02/29/24 18:59 06:59 18:59 Output Total 600 500 550 Balance -600 -500 -550 Weight 70.44 kg Output: Urine 600 500 550 Other: Voiding Method Indwelling Catheter Indwelling Catheter Indwelling Catheter # Voids 2 ABP, PAP, CO, CI - Last Documented Arterial Blood Pressure 122/71 - Exam GENERAL DESCRIPTION: An elderly male lying in bed in no distress RESPIRATORY SYSTEM: Unlabored breathing , coarse breath sounds bilaterally HEART: S1 S2 regular rate and rhythm , ABDOMEN: Soft , no tenderness EXTREMITIES: Bilateral lower extremity wounds currently dressed - Labs CBC & Chem 7: 02/29/24 04:17 02/29/24 15:54 Labs: Abnormal Lab Results - Last 24 Hours (Table) 02/28/24 02/28/24 02/28/24 Range/Units 15:00 16:41 20:37 WBC (4.50-10.00) X 10*3/uL RBC (4.40-5.60) X 10*6/uL Hgb (13.0-17.0) g/dL Hct (39.6-50.0) % MCV (80.0-97.0) FL MCH (27.0-32.0) pg MCHC (32.0-37.0) g/dL RDW (11.5-14.5) % MPV (9.5-12.2) FL Immature Gran # (0.00-0.04) X 10*3/uL Neutrophils # (1.80-7.70) X 10*3/uL Monocytes # (0.20-1.00) X 10*3/uL Eosinophils # (0.04-0.35) X 10*3/uL Basophils # (0.00-0.10) X 10*3/uL Potassium (3.5-5.5) mmol/L BUN (9.0-27.0) mg/dL BUN/Creatinine Ratio (12.00-20.00) Ratio POC Glucose (mg/dL) 277 H 68 L (70-110) mg/dL Calcium (8.7-10.3) mg/dL AST (14-35) U/L ALT (10-49) U/L Alkaline Phosphatase (41-126) U/L Total Protein (6.2-8.2) g/dL Albumin (3.8-4.9) g/dL Albumin/Globulin Ratio (1.60-3.17) Ratio Urine Protein 1+ H (Negative) Urine Blood Large H (Negative) Urine Bilirubin 1+ H (Negative) Ur Leukocyte Esterase Moderate H (Negative) Urine RBC >182 H (0-5) /hpf Urine WBC 61 H (0-5) /hpf Urine WBC Clumps Few H (None) /hpf Hyaline Casts 21 H (0-2) /lpf 02/29/24 02/29/24 02/29/24 Range/Units 04:17 04:17 06:09 WBC 27.46 H (4.50-10.00) X 10*3/uL RBC 2.76 L (4.40-5.60) X 10*6/uL Hgb 9.4 L (13.0-17.0) g/dL Hct 29.6 L (39.6-50.0) % MCV 107.2 H (80.0-97.0) FL MCH 34.1 H (27.0-32.0) pg MCHC 31.8 L (32.0-37.0) g/dL RDW 22.9 H (11.5-14.5) % MPV 13.6 H (9.5-12.2) FL Immature Gran # 0.64 H (0.00-0.04) X 10*3/uL Neutrophils # 23.59 H (1.80-7.70) X 10*3/uL Monocytes # 1.57 H (0.20-1.00) X 10*3/uL Eosinophils # 0 L (0.04-0.35) X 10*3/uL Basophils # 0.11 H (0.00-0.10) X 10*3/uL Potassium 5.8 H (3.5-5.5) mmol/L BUN 30.1 H (9.0-27.0) mg/dL BUN/Creatinine Ratio 30.10 H (12.00-20.00) Ratio POC Glucose (mg/dL) 114 H (70-110) mg/dL Calcium 7.7 L (8.7-10.3) mg/dL AST 350 H (14-35) U/L ALT 345 H (10-49) U/L Alkaline Phosphatase 1227 H (41-126) U/L Total Protein 4.7 L (6.2-8.2) g/dL Albumin 2.0 L (3.8-4.9) g/dL Albumin/Globulin Ratio 0.74 L (1.60-3.17) Ratio Urine Protein (Negative) Urine Blood (Negative) Urine Bilirubin (Negative) Ur Leukocyte Esterase (Negative) Urine RBC (0-5) /hpf Urine WBC (0-5) /hpf Urine WBC Clumps (None) /hpf Hyaline Casts (0-2) /lpf 02/28/ Range/Units 12:10 WBC (4.50-10.00) X 10*3/uL RBC (4.40-5.60) X 10*6/uL Hgb (13.0-17.0) g/dL Hct (39.6-50.0) % MCV (80.0-97.0) FL MCH (27.0-32.0) pg MCHC (32.0-37.0) g/dL RDW (11.5-14.5) % MPV (9.5-12.2) FL Immature Gran # (0.00-0.04) X 10*3/uL Neutrophils # (1.80-7.70) X 10*3/uL Monocytes # (0.20-1.00) X 10*3/uL Eosinophils # (0.04-0.35) X 10*3/uL Basophils # (0.00-0.10) X 10*3/uL Potassium (3.5-5.5) mmol/L BUN (9.0-27.0) mg/dL BUN/Creatinine Ratio (12.00-20.00) Ratio POC Glucose (mg/dL) 119 H (70-110) mg/dL Calcium (8.7-10.3) mg/dL AST (14-35) U/L ALT (10-49) U/L Alkaline Phosphatase (41-126) U/L Total Protein (6.2-8.2) g/dL Albumin (3.8-4.9) g/dL Albumin/Globulin Ratio (1.60-3.17) Ratio Urine Protein (Negative) Urine Blood (Negative) Urine Bilirubin (Negative) Ur Leukocyte Esterase (Negative) Urine RBC (0-5) /hpf Urine WBC (0-5) /hpf Urine WBC Clumps (None) /hpf Hyaline Casts (0-2) /lpf Assessment and Plan (1) Bacteremia due to methicillin susceptible Staphylococcus aureus (MSSA) Current Visit: Yes Status: Acute Code(s): R78.81 - BACTEREMIA; B95.61 - METHICILLIN SUSCEP STAPH INFCT CAUSING DIS CLASSD [id number] SNOMED Code(s): 069284976 (2) Pneumonia Current Visit: Yes Status: Acute Code(s): J18.9 - PNEUMONIA, UNSPECIFIED ORGANISM SNOMED Code(s): 955540062 (3) Leukocytosis Current Visit: Yes Status: Acute Code(s): D72.829 - ELEVATED WHITE BLOOD CELL COUNT, UNSPECIFIED SNOMED Code(s): 913777971 Plan: 1patient presented to hospital with sepsis in this patient who did have leukocytosis tachycardia meeting criteria for SIRS source is left lower lobe pneumonia blood culture positive for MSSA repeat blood culture negative and the patient has completed antibiotic therapy for his bacteremia, CT of the chest did not show any empyema echocardiogram did not show any valvular abnormalities repeat blood culture negative, subsequent developing left-sided pneumothorax s/p is chest tube placement. Patient did have persistent leak CT surgery is closely following the patient considered to be high risk for any surgical procedure 2 the patient now seem to have problem with persistent elevated white count source is multifactorial sputum is positive for E. coli and Aleyda and also have a necrotic wound to the bilateral extremities more marked to the right leg likely pressure ulcer currently being treated with the Santyl, await vascular surgery evaluation for debridement, CT of the chest with diffuse opacities patient is currently on Rocephin and Diflucan and monitor white count closely Dictation was produced using [employer] dictation software. please excuse any grammatical, word or spelling errors. Time with Patient: Less than 30
[2024-03-01] MEDS ORDERED: VANCOMYCIN IV PER PHARMACY 1 EACH MISC MISCELLANE PRN (07:59)
[2024-03-01] MEDS: FUROSEMIDE 10 MG/ML 4 ML VIAL IV STA (09:35)
[2024-03-01] MEDS: VANCOMYCIN 1,500 MG in SODIUM CHLORIDE 0.9% 500 ML 500 ML IVPB ONE (09:35)
[2024-03-01 12:01] LABS: Glucose,Whole Blood 116 mg/dL (70-110)
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
--- NOTE | 2024-03-01 12:27 | P.PN ---
Subjective Progress Note Date: 03/01/24 SURGICAL PROGRESS NOTE CHIEF COMPLAINT: Shortness of breath HISTORY OF PRESENT ILLNESS: Patient sitting up in bed. No new complaints. No evidence of blood in stools per nursing staff. Hemoglobin 9.4 stable PHYSICAL EXAM: VITAL SIGNS: Reviewed. GENERAL: in no acute distress. ABDOMEN: Soft. Nondistended. Nontender. ASSESSMENT: 1. Anemia with Acute GI bleed, HGB stable. No further active bleeding 2. Persistent leukocytosis 3. atrial fibrillation PLAN: -No surgical intervention planned -Continue supportive care Physician Cotton Classer Aide note has been reviewed by physician. Signing provider agrees with the documented findings, assessment, and plan of care. I have personally seen and examined the patient, reviewed the PACK TRAIN DRIVER /PAs history, exam and MDM and agree with the assessment and plan as written. Based on total visit time, I have performed more than 50% of the visit. As above: Patient doing well today. Denies pain. No rectal bleeding. Hemoglobin stable. Will sign off. Please follow as outpatient with Dr. Matias to discuss possible need for endoscopy. Objective - Vital Signs Vital signs: Vital Signs Temp 97.5 F L 03/01/24 07:34 Pulse 87 03/01/24 07:34 Resp 18 03/01/24 10:38 BP 87/48 03/01/24 12:13 Pulse Ox 94 L 03/01/24 07:34 FiO2 40 02/16/24 12:48 Intake & Output 02/29/24 03/01/24 03/01/24 18:59 06:59 18:59 Intake Total 500 Output Total 1050 1100 Balance -1050 -600 Weight 70.4 kg Intake: Oral 500 Output: Urine 1050 1100 Other: Voiding Method Indwelling Catheter Indwelling Catheter Indwelling Catheter # Bowel Movements 0 ABP, PAP, CO, CI - Last Documented Arterial Blood Pressure 122/71 - Labs CBC & Chem 7: 02/29/24 04:17 03/01/24 13:04 Labs: Abnormal Lab Results - Last 24 Hours (Table) 03/01/24 Range/Units 12:00 POC Glucose (mg/dL) 116 H (70-110) mg/dL Microbiology - Last 24 Hours (Table) 02/28/24 15:00 Urine Culture - Final Urine,Voided
--- NOTE | 2024-03-01 12:54 | P.PN ---
Subjective Rodriguez Jackson, is a 73-year-old male who presented to [facility] emergency room with a chief complaint of worsening shortness of breath, patient stated that he fell 2 weeks ago, he was complaining of left-sided rib pain especially when he takes a deep breath. He was also complaining of cough otherwise he denies any complaints. He was evaluated in the emergency room vital examination on presentation revealed a temperature of 98.8 pulse 118 respiration 18 blood pressure 130/78 pulse ox 97% on 10 L nonrebreather mask Laboratory data revealed a white blood count of 20.8 hemoglobin 12.2 platelet count 310 sodium 134 potassium 3.4 chloride 102 BUN 51 creatinine 1.77 AST 188 ALT 135 troponin 0.012 Testing in the emergency room revealed EKG done in the emergency room revealed atrial fibrillation with rapid ventricular response, chest x-ray revealed patchy left and right lower lobe infiltrates worse on the left. Patient was admitted to medical floor for further evaluation and treatment, pulmonary consultation and cardiology consultation were requested. On 01/23/2024 patient was seen and examined on the medical floor he is alert and oriented x 3 in no apparent distress he reports mild improvement in his shortness of breath, he is still complaining of cough and complaining of chest wall pain otherwise he denies any complaints there is no fever or chills no headache or dizziness no nausea or vomiting no abdominal pain no diarrhea no blood in the stools no burning with urination no frequency or urgency and no hematuria. His temperature is 98.8 pulse 108 respiration 26 blood pressure 138/92 pulse ox 91% on 11 L high flow cannula, white blood count is 26.7 hemoglobin 12.8 platelet count 281 BUN 31 creatinine 1.04 On 01/24/2024 patient is alert and oriented x 3. Patient still having some significant shortness of breath currently on 11 L nasal cannula. Cardiology, pulmonary and infectious disease services are following. Patient remains on Cardizem drip. Patient remains on IV steroids and IV cefazolin. White blood cell 35.7, creatinine 1.18 bun 40. Current vital signs temp 97.8, heart 76, respiratory rate 26, blood pressure 112/73 with a pulse ox of 91% on 11 L On 01/25/2024 patient is alert and oriented x 3 patient reports some improvement with shortness of breath. Pulmonary cardiology and infectious disease services are following. Cardizem drip has been DC'd patient transition to p.o. Cardizem per cardiology continue IV antibiotics and steroids at this time.. Current vital signs temp 96.4, heart rate 74, respiratory rate 18, blood pressure 118/83 with a pulse ox of 97% on 10 L high flow. On 01/26/2024 patient was seen and examined on the medical floor he is alert and oriented x 3 in mild respiratory distress, he is maintained on high flow oxygen of 11 L/min, he is still complaining of cough and chest discomfort otherwise he denies any complaints, there is no fever or chills no headache or dizziness no chest pain no nausea or vomiting no abdominal pain no diarrhea no blood in the s tools no burning with urination no frequency or urgency and no hematuria. Testing for COVID was positive yesterday. Pulmonary and infectious disease are following. On 01/27/2024 patient is alert and oriented x 3 patient continued to having increase oxygen demands. Per nursing staff pulmonary services were notified patient currently on high flow [address] scan of chest this morning which showed diffuse groundglass opacities and correlation for atypical pneumonia. Patient remains on IV Kefzol and prednisone. Pulmonary and infectious disease services following. Cardiology also following On 01/28/2024 patient is alert and oriented x 3. Patient at this time is resting comfortably in bed. Patient remains on Airvo 60%. Temp 97.6, heart rate 95, respiratory rate 24, blood pressure 100/67. Pulmonary cardiology and infectious disease are following patient remains on IV Kefzol and Solu-Medrol On 01/29/2024 patient was seen and examined on the medical floor he is alert and oriented x 3 in no apparent distress,he is still maintained on high flow oxygen, he is complaining of generalized weakness and complaining of constipation he has very poor oral intake, there is no fever or chills no headache or dizziness no chest pain, he has shortness of breath with any activity no palpitation he has continuous cough no nausea or vomiting no abdominal pain no diarrhea and no uri nary symptoms. On 01/30/2024 patient was seen and examined in the ICU, he is alert responsive in no apparent distress maintained on high flow oxygen via Airvo, he was transferred to ICU due to worsening shortness of breath, chest x-ray today revealed interval development of a large left-sided pneumothorax estimated at 40%, he underwent chest tube placement, on the left. His vital exam reveals a temperature of 97.5 pulse 108 respiration 33 blood pressure 133/82 pulse ox is 98% on high flow cannula with FiO2 of 50% On 01/31/2024 patient remains in the intensive care unit. Chest tube in place. Current vital signs temp 97.9, heart rate 84, respiratory rate 23, blood pressure 102/71 with a pulse ox of 97% on high flow of 40%. Patient remains short of breath. Patient denies chest pain. Patient denies nausea vomiting or diarrhea. Patient denies any urinary burning or frequency On 02/01/2024 patient is alert and oriented x 3. Patient remains in the intensive care unit. Tube remains in place. Current vital signs temp 97.7, heart rate 79, respiratory rate 24, blood pressure 117/76 with a pulse ox of 100% on 6 L high flow. Patient reports some improvement with shortness of breat h. Patient denies chest pain. Patient denies nausea vomiting or diarrhea. On 02/02/2024 patient was seen and examined in the ICU, he is alert and oriented x 3 in no apparent distress, he is complaining of discomfort at the chest tube site, and complaining of shortness of breath otherwise he denies any complaints there is no fever or chills no headache or dizziness, no chest pain, he has occasional cough no nausea or vomiting no abdominal pain no diarrhea no urinary symptoms. Temperature is 97.4 pulse 90 respiration 23 blood pressure 106/78 pulse ox 95% on 4 L nasal cannula, white blood count 45.7 hemoglobin 11.1 platelet count 199 BUN 45 creatinine 0.89 On 02/03/2024 patient remains in the ICU alert and oriented x 3. Patient still has chest tube complaining of some discomfort at site. Speech services at bedside assessing swallow still recommending nectar thick liquids. Current vi donis signs temp 97.6, heart rate 93, respiratory rate 21. Patient denies chest pain or shortness of breath. Patient denies nausea vomiting or diarrhea. Patient denies any urinary burning and frequency. On 02/04/2024 patient was seen and examined in the intensive care unit, he is alert and oriented in no apparent distress, he is complaining of pain in the chest wall site of the chest tube otherwise he denies any complaints, there is no fever or chills no headache or dizziness no chest pain no shortness of breath no cough no nausea or vomiting no abdominal pain no diarrhea no urinary symptoms , temperature is 97.5 pulse 89 respiration 16 blood pressure 108/68 pulse ox 96% on 4 L nasal cannula. His white blood count is 28.9 hemoglobin 11.0 platelet count 147 sodium 136 potassium 3.9 chloride 111 CO2 23 BUN 30 creatinine 0.94 On 02/05/2024 patient remains in the intensive care unit alert and oriented 3. Patient is down to 2 L. Chest tube remains in place.Patient's appetite remains poor patient has been started on Megace. Will consult when necessary for possible discharge planning. Patient denies chest pain or shortness breath. Patient denies nausea vomiting or diarrhea. Patient denies any urinary burning or frequency. Current vital signs temp 97.6, heart rate 80, respiratory rate 19,, Blood pressure 98/70 with pulse ox 95% on 2 L On 02/06/2024 patient was seen and examined on the telemetry floor, he is alert and oriented x 3. Current vital signs temp 97.9, heart rate 93, respiratory rate 18. blood pressure 122/60 Patient denies chest pain or shortness of breath. Patient denies nausea vomiting or diarrhea. Patient denies any urinary burning and frequency. On 03/05/2024 patient is alert and oriented x 3. Patient complaining about difficulty sleeping melatonin added. Discharge planning to [facility]. Patient remains with chest tube awaiting further recommendations from pulmonary services. Current vital signs temp 97.3, heart rate 78, respiratory rate 18, bl ood pressure 133/80 with a pulse ox of 93% on 4 L. Patient denies chest pain or shortness of breath. Patient denies nausea vomiting or diarrhea. Patient denies any urinary burning or frequency On 02/08/2024 patient is alert and oriented x 3. Cardiothoracic surgery was consulted due to left-sided pneumothorax with chest tube placement with continuous airleak at this time recommendations to continue wall suction and will monitor. Patient denies chest pain or shortness of breath. Patient denies nausea vomiting or diarrhea. Patient denies any urinary burning or frequency. Current temp 97.3, heart rate 68, respiratory rate 18, blood pressure 96/63 with a pulse ox of 92% on 4 L On 02/09/2024 patient is alert and oriented x 3. Patient was transferred to the intensive care unit last night due to large bloody bowel movement and hypotension. At this time patient's Eliquis has been on hold. Surgical services have been consulted. Patient denies chest pain or shortness of breath. Patient denies nausea vomiting or diarrhea. Patient denies any urinary burning or frequency. Patient may require norepinephrine for blood pressure support continue ICU management at this time. Critical care services following On 02/10/2024 patient is alert and oriented x 3. Per nursing staff patient has had no further episodes of large-volume bloody bowel movement. Patient still having some hypotension. Patient was evaluated by surgical services Eliquis remains on hold hemoglobin remained stable continue monitoring at this time. Patient also being followed by cardiothoracic surgery chest tube remains to suction at this time. Patient denies chest pain or shortness of breath. Patient denies any urinary burning or frequency. Patient denies nausea vomiting or diarrhea. On 02/11/2024 patient was seen and examined in the ICU, he is alert and oriented x 3 in no apparent distress, he is still complaining of left-sided chest wall pain site of his chest tube, otherwise he denies any complaints there is no fever or chills no headache or dizziness no chest pain no shortness of breath no cough no nausea or vomiting no abdominal pain no diarrhea no blood in the stools no burning with urination no frequency or urgency and no hematuria, patient has very low oral intake, he was encouraged in length in regard to increasing his diet and taking some protein supplements, albumin is low to 1.7, alternatively patient may need a Dobbhoff tube with enteral feeding. Will continue to follow closely On 02/12/2024 patient is alert and oriented x 3 remains in the ICU. Patient remains on IV Lasix patient having increased lower extremity edema. Appetite remains poor. Current vital signs temp 98.7, heart rate 89, respiratory rate 19, blood pressure 88/52 with a pulse ox of 93% on Airvo 60%. Patient denies chest pain or shortness of breath. Patient denies nausea vomiting or diarrhea. Patient denies any urinary burning or frequency On 02/13/2024 patient's alert and oriented remains in the intensive care unit. Remains on IV Lasix. Patient also remains on IV Zosyn. Multiple consults fo llowing. Patient remains on Airvo 60% and patient was started on Levophed for pressure support On 02/14/2024 patient is alert and oriented x 3. Edema has slightly improved. Patient remains on Levophed. Current vital signs temp 98.0, heart rate 94, respiratory rate 19, blood pressure 102/73 with a pulse ox of 96% on Airvo 60%. Hemoglobin 8.9, white blood cell 28.6, creatinine 1.14 bun 33 On 02/15/2024 patient is alert and oriented x 3 patient remains in the intensive care unit Levophed getting weaned down per nursing staff chest tube has been removed. Patient remains on Airvo. Current vital signs temp 98.2, heart 81, respiratory rate 15, blood pressure 105/67 with a pulse ox of 112/64. Pulse ox 94% with an Airvo FiO2 of 50%. Patient denies chest pain or shortness of breath. Patient denies nausea vomiting or diarrhea. Patient denies any urinary burning or frequency. On 02/16/2024 patient was seen and examined in the ICU he is alert and oriented x 3 in no apparent distress there is no fever or chills no headache or dizziness no chest pain no shortness of breath, at rest patient is maintained on Airvo, high flow oxygen, no nausea or vomiting no abdominal pain no diarrhea no urinary symptoms. On 02/17/2024 patient remains in the ICU alert and oriented x 3. Patient is d own to high flow and Levophed has been turned off. Per critical care will continue to monitor patient in the ICU for an additional 24 hours. Current temp 97.4, heart rate 87, respiratory rate 17, blood pressure 114/62 with a pulse ox of 95% on high flow 6 L. Patient denies chest pain or shortness of breath. Patient denies nausea vomiting or diarrhea. Patient denies any urinary burning or frequency On 02/18/2024 patient was seen and examined on the telemetry floor, he is alert and oriented x 3 in no apparent distress, he is still complaining of shortness of breath , he is maintained on oxygen 4 L via nasal cannula , he is complaining of chest wall pain site of his old chest tube , otherwise he denies any complaints at this time , there is no fever or chills, no headache or dizziness no chest pain he has occasional cough no nausea or vomiting no abdominal pain no diarrhea and no urinary symptoms, patient has been bedbound for several days, he will need to transfer to rehab when medically clear. On 02/19/2024 patient is alert and oriented x 3. At this time patient denies chest pain or shortness of breath. Patient denies nausea vomiting or diarrhea. Patient denies any urinary burning and frequency. Current vital signs temp 97.3, heart rate 77, respiratory rate 17, blood pressure 110/74 with a pulse ox of 94% on 4 L On 02/20/2024 patient was seen and examined on the medical floor he is alert and oriented x 3 in no apparent distress he is maintained on oxygen 4 L via nasal cannula, he denies any chest pain or shortness of breath at rest vital exam reveals a temperature of 97.4 pulse 85 respiration 13 blood pressure 108/74 pulse ox 95% on 4 L nasal cannula, white blood count 29.95 hemoglobin 9.9 platelet count 237 BUN 37.5 creatinine 1.2, medication and labs were reviewed continue with current management will recheck in a.m. On 02/21/2024 patient is alert and oriented 3. Patient reports some increased shortness of breath intubated have been adjusted per ID will order chest x- ray.current vital signs temp 97.3, heart rate 97, respiratory rate 20, blood pressure 99/60 with pulse ox 92% on 4 L. Infectious disease, pulmonary and surgical services are following On 02/22/2024 patient is alert and oriented x 3. Patient reports some improvement. Chest x-ray showing interstitial infiltrate. Pulmonary and infectious disease services are following. Current vital signs temp 97.6, heart rate 89, respiratory rate 20, blood pressure 97/66 with a pulse ox of 95% on 4 L patient denies chest pain. Patient denies nausea vomiting or diarrhea. Patient denies any urinary burning or frequency. On 02/23/2024 patient was seen and examined on the medical floor he is alert and oriented x 3 in no apparent distress he is still complaining of cough and shortness of breath otherwise he denies any complaints there is no fever or chills no headache or dizziness no chest pain no nausea or vomiting no abdominal pain no diarrhea and no urinary symptoms On 02/25/2024 patient is alert and oriented x 3. Patient still having some shortness of breath. Patient remains on Bactrim, IV Rocephin and Diflucan. Pulmonary and infectious disease services are following. Current vital signs temp 97.0, heart rate 94, respiratory rate 16, blood pressure 90/48 with a pulse ox of 94% on 4 L. On 02/26/2024 patient was seen and examined on the medical floor he is alert and oriented x 3 in no apparent distress he is still complaining of shortness of breath otherwise he denies any complaints there is no fever or chills no headache or dizziness no chest pain he has occasional cough no nausea or vomiting no abdominal pain no diarrhea and no urinary symptoms. He remains on oxygen 4 L via nasal cannula. Patient is improving gradually. On 02/27/2024 patient is alert and oriented x 3 patient is improving gradually. Patient denies any chest pain or shortness of breath. Patient denies nausea vomiting or diarrhea. Patient denies any urinary burning or frequency. Current vital signs temp 97.8, heart rate 91, respiratory rate 93/55 with a pulse ox of 96% on 4 L On 02/28/2024 patient is alert and oriented x 3. White blood cell 26. Current vital signs temp 97.7, heart rate 85, respiratory rate 18, blood pressure 105/66 with a pulse ox of 94% on 4 L patient still having some shortness of breath. Patient denies chest pain. Patient denies nausea vomiting or diarrhea. Patient denies any urinary burning or frequency 02/28 Patient lying in bed looks comfortable, states abdominal pain controlled,. No nausea vomiting. He tolerated simple diet last night but has been refusing snacks since then. He is taking [place] frequently for pain control, Liver enzymes are trending up today , AST 350 and ALT 345 Bilirubin normal at 1.1. We took the Tylenol part of his [place] and started him on oxycodone. Hemoglobin stable at 9.4 Potassium slightly high at 5.8, treatment was given and we will going to check level patient remains on ceftriaxone and Eliquis Patient remains on ceftriaxone 03/01 Patient looks comfortable, he is generally weak No chest pain or dyspnea No other new complaints Hyperkalemia yesterday was improved. Repeat potassium 4.6 yesterday. Potassium level from today still pending Patient received extra dose of IV Lasix which might help with his high potassium Also patient continue with antibiotics as per ID team including IV vancomycin Objective - Vital Signs Vital signs: Vital Signs Temp 97.5 F L 03/01/24 07:34 Pulse 87 03/01/24 07:34 Resp 18 03/01/24 10:38 BP 87/48 03/01/24 12:13 Pulse Ox 94 L 03/01/24 07:34 FiO2 40 02/16/24 12:48 Intake & Output 02/29/24 03/01/24 03/01/24 18:59 06:59 18:59 Intake Total 500 Output Total 1050 1100 Balance -1050 -600 Weight 70.4 kg Intake: Oral 500 Output: Urine 1050 1100 Other: Voiding Method Indwelling Catheter Indwelling Catheter Indwelling Catheter # Bowel Movements 0 ABP, PAP, CO, CI - Last Documented Arterial Blood Pressure 122/71 - Exam GENERAL: The patient is alert and oriented x3, not in any acute distress. Well d eveloped, well nourished. HEENT: Pupils are round and equally reacting to light. EOMI. No scleral icterus. No conjunctival pallor. Normocephalic, atraumatic. No pharyngeal erythema. No thyromegaly. CARDIOVASCULAR: S1 and S2 present. No murmurs, rubs, or gallops. PULMONARY: Chest is clear to auscultation, no wheezing , no crackles. ABDOMEN: Soft, nontender, nondistended, normoactive bowel sounds. No palpable organomegaly. MUSCULOSKELETAL: No joint swelling or deformity. EXTREMITIES: No cyanosis, clubbing, or pedal edema. NEUROLOGICAL: Gross neurological examination did not reveal any focal deficits. SKIN: No rashes. no petechiae. - Labs CBC & Chem 7: 02/29/24 04:17 02/29/24 15:54 Labs: Abnormal Lab Results - Last 24 Hours (Table) 03/01/24 Range/Units 12:00 POC Glucose (mg/dL) 116 H (70-110) mg/dL Microbiology - Last 24 Hours (Table) 02/28/24 15:00 Urine Culture - Final Urine,Voided Assessment and Plan Assessment: 1. Pneumonia with sepsis as evident by elevated lactic acid and leukocytosis. Continue with ceftriaxone 2. Acute kidney injury secondary to sepsis and dehydration, kidney function improved significantly since admission 3. History of atrial fibrillation maintained on Eliquis, with episodes of rapid ventricular response during this presentation 4. History of CHF 5. Acute hypoxic respiratory failure requiring high flow oxygen supplements pulmonary are following 6. Elevated liver enzymes we will hold statin at this time and recheck. Liver enzymes continue to trend up so we discontinued Tylenol 7. Positive blood culture for Staphylococcus aureus, consultation for infectious disease was initiated 8. COVID-19 positive 9. Left-sided pneumothorax requiring left-sided chest tube insertion 10. GI bleed. Surgical services consulted Eliquis currently on hold 11. Hypotension secondary to above patient currently in ICU may require vasopressors for blood pressure support DVT prophylaxis Eliquis. GI prophylaxis Protonix Pulmonary services consulted, infectious disease cardiology consultation Blood and sputum cultures ordered Repeat labs ordered
[2024-03-01 14:19] LABS: Potassium 4.4 mmol/L (3.5-5.1)
[2024-03-01 14:21] VITALS: BMI 24.3
--- NOTE | 2024-03-01 15:05 | P.PN ---
Subjective Progress Note Date: 03/01/24 Principal diagnosis: Reason for follow-up is left-sided pneumonia and MSSA bacteremia Patient is a 73-year-old with a past medical history significant for atrial fibrillation heart failure , close head injury patient presenting to the hospital for evaluation of increasing shortness of breath left lower chest pain, patient has been diagnosed with left-sided pneumonia and did have a positive blood culture with MSSA prompted this consultation.Patient did have a chest x-ray morning of 01/30/2024 with evidence of left-sided pneumothorax in this patient who status post chest tube placement on 01/30/2024 by pulmonary On today's evaluation that is 03/01/2024,the patient remains to be afebrile, patient is on 4 L nasal cannula supplemental oxygen and complaining of some shortness of breath but denies any chest pain he did have a cough not bringing up any sputum no abdominal pain or worsening pain to lower extremity. No CBC was done today Objective - Vital Signs Vital signs: Vital Signs Temp 97.5 F L 03/01/24 07:34 Pulse 87 03/01/24 07:34 Resp 18 03/01/24 10:38 BP 87/48 03/01/24 12:13 Pulse Ox 94 L 03/01/24 07:34 FiO2 40 02/16/24 12:48 Intake & Output 02/29/24 03/01/24 03/01/24 18:59 06:59 18:59 Intake Total 500 Output Total 1050 1100 Balance -1050 -600 Weight 70.4 kg 70.4 kg Intake: Oral 500 Output: Urine 1050 1100 Other: Voiding Method Indwelling Catheter Indwelling Catheter Indwelling Catheter # Bowel Movements 0 ABP, PAP, CO, CI - Last Documented Arterial Blood Pressure 122/71 - Exam GENERAL DESCRIPTION: An elderly male lying in bed in no distress RESPIRATORY SYSTEM: Unlabored breathing , coarse breath sounds bilaterally HEART: S1 S2 regular rate and rhythm , ABDOMEN: Soft , no tenderness EXTREMITIES: Bilateral lower extremity wounds currently dressed - Labs CBC & Chem 7: 02/29/24 04:17 03/01/24 13:04 Labs: Abnormal Lab Results - Last 24 Hours (Table) 03/01/24 03/01/24 Range/Units 12:00 13:04 Sodium 134 L (137-145) mmol/L POC Glucose (mg/dL) 116 H (70-110) mg/dL Microbiology - Last 24 Hours (Table) 02/28/24 15:00 Urine Culture - Final Urine,Voided Assessment and Plan (1) Bacteremia due to methicillin susceptible Staphylococcus aureus (MSSA) Current Visit: Yes Status: Acute Code(s): R78.81 - BACTEREMIA; B95.61 - METHICILLIN SUSCEP STAPH INFCT CAUSING DIS CLASSD [id number] SNOMED Code(s): 014899846 (2) Pneumonia Current Visit: Yes Status: Acute Code(s): J18.9 - PNEUMONIA, UNSPECIFIED ORGANISM SNOMED Code(s): 188316276 (3) Leukocytosis Current Visit: Yes Status: Acute Code(s): D72.829 - ELEVATED WHITE BLOOD CELL COUNT, UNSPECIFIED SNOMED Code(s): 904213882 Plan: 1patient presented to hospital with sepsis in this patient who did have leukocytosis tachycardia meeting criteria for SIRS source is left lower lobe pneumonia blood culture positive for MSSA repeat blood culture negative and the patient has completed antibiotic therapy for his bacteremia, CT of the chest did not show any empyema echocardiogram did not show any valvular abnormalities repeat blood culture negative, subsequent developing left-sided pneumothorax s/p is chest tube placement. Patient did have persistent leak CT surgery is closely following the patient considered to be high risk for any surgical procedure 2 the patient now seem to have problem with persistent elevated white count source is multifactorial sputum is positive for E. coli and Aleyda and also have a necrotic wound to the bilateral extremities more marked to the right leg likely pressure ulcer currently being treated with the Santyl, await vascular surgery evaluation for debridement, CT of the chest was reviewed with radiologist, did show diffuse opacities patient is currently on Rocephin and Diflucan, vancomycin has been added because of persistent elevated white count I will see response Dictation was produced using [employer] software. please excuse any grammatical, word or spelling errors.
[2024-03-01] MEDS: HYDROmorphone 0.5 MG/0.5 ML SYRINGE IVP STA (16:47)
[2024-03-01 16:52] LABS: Glucose,Whole Blood 119 mg/dL (70-110)
[2024-03-01 22:00] LABS: Glucose,Whole Blood 140 mg/dL (70-110)
[2024-03-01] MEDS: VANCOMYCIN 1,250 MG in SODIUM CHLORIDE 0.9% 250 ML IVPB SCH (22:05)
[2024-03-02 04:55] LABS: African American GFR (CKD) 78 (>60 ml/min/1.73 sqM); Anion Gap 0 mmol/L; Blood Urea Nitrogen 30 mg/dL (9-20); Calcium 7.2 mg/dL (8.4-10.2); Carbon Dioxide 27 mmol/L (22-30); Chloride 104 mmol/L (98-107); Glucose 84 mg/dL (74-99); Non-African American GFR(CKD) 68 (>60 ml/min/1.73 sqM); Potassium 4.5 mmol/L (3.5-5.1); Sodium 131 mmol/L (137-145)
[2024-03-02 06:10] LABS: Glucose,Whole Blood 121 mg/dL (70-110)
[2024-03-02 08:42] LABS: Basophils # (A) 0.11 X 10*3/uL (0.00-0.10); Basophils % (A) 0.5 %; Eosinophils # (A) 0 X 10*3/uL (0.04-0.35); Eosinophils % (A) 0 %; HCT 27.2 % (39.6-50.0); HGB 8.7 g/dL (13.0-17.0); Lymphocytes # (A) 1.39 X 10*3/uL (0.90-5.00); Lymphocytes % (A) 5.8 %; MCH 34.9 pg (27.0-32.0); MCV 109.2 FL (80.0-97.0); Mean Platelet Volume 13.5 FL (9.5-12.2); Monocytes % (A) 5.5 %; NRBC Per 100 WBC 0.03 X 10*3/uL (0.00-0.01); Neutrophils # (A) 20.28 X 10*3/uL (1.80-7.70); Neutrophils % (A) 85.1 %; Platelet Count 270 X 10*3/uL (140-440); RBC 2.49 X 10*6/uL (4.40-5.60); RDW 22.1 % (11.5-14.5); WBC 23.83 X 10*3/uL (4.50-10.00)
--- NOTE | 2024-03-02 10:20 | XR ---
EXAMINATION TYPE: XR chest 1V portable DATE OF EXAM: 03/02/2024 6:35 AM COMPARISON: 02/23/2024 CLINICAL INDICATION: Male, 73 years old with history of CHF, , FINDINGS: Heart mildly enlarged. Patchy and confluent bilateral airspace opacities, right greater than left are similar to slightly worsened from prior. Trace pleural effusions. IMPRESSION: Bilateral airspace disease, right greater than left, similar to slightly worsened from prior. Trace e ffusions. [facility], , 03/02/2024 10:17 AM
--- NOTE | 2024-03-02 11:42 | P.PN ---
Subjective Rodriguez Jackson, is a 73-year-old male who presented to [facility] emergency room with a chief complaint of worsening shortness of breath, patient stated that he fell 2 weeks ago, he was complaining of left-sided rib pain especially when he takes a deep breath. He was also complaining of cough otherwise he denies any complaints. He was evaluated in the emergency room vital examination on presentation revealed a temperature of 98.8 pulse 118 respiration 18 blood pressure 130/78 pulse ox 97% on 10 L nonrebreather mask Laboratory data revealed a white blood count of 20.8 hemoglobin 12.2 platelet count 310 sodium 134 potassium 3.4 chloride 102 BUN 51 creatinine 1.77 AST 188 ALT 135 troponin 0.012 Testing in the emergency room revealed EKG done in the emergency room revealed atrial fibrillation with rapid ventricular response, chest x-ray revealed patchy left and right lower lobe infiltrates worse on the left. Patient was admitted to medical floor for further evaluation and treatment, pulmonary consultation and cardiology consultation were requested. On 01/23/2024 patient was seen and examined on the medical floor he is alert and oriented x 3 in no apparent distress he reports mild improvement in his shortness of breath, he is still complaining of cough and complaining of chest wall pain otherwise he denies any complaints there is no fever or chills no headache or dizziness no nausea or vomiting no abdominal pain no diarrhea no blood in the stools no burning with urination no frequency or urgency and no hematuria. His temperature is 98.8 pulse 108 respiration 26 blood pressure 138/92 pulse ox 91% on 11 L high flow cannula, white blood count is 26.7 hemoglobin 12.8 platelet count 281 BUN 31 creatinine 1.04 On 01/24/2024 patient is alert and oriented x 3. Patient still having some significant shortness of breath currently on 11 L nasal cannula. Cardiology, pulmonary and infectious disease services are following. Patient remains on Cardizem drip. Patient remains on IV steroids and IV cefazolin. White blood cell 35.7, creatinine 1.18 bun 40. Current vital signs temp 97.8, heart 76, respiratory rate 26, blood pressure 112/73 with a pulse ox of 91% on 11 L On 01/25/2024 patient is alert and oriented x 3 patient reports some improvement with shortness of breath. Pulmonary cardiology and infectious disease services are following. Cardizem drip has been DC'd patient transition to p.o. Cardizem per cardiology continue IV antibiotics and steroids at this time.. Current vital signs temp 96.4, heart rate 74, respiratory rate 18, blood pressure 118/83 with a pulse ox of 97% on 10 L high flow. On 01/26/2024 patient was seen and examined on the medical floor he is alert and oriented x 3 in mild respiratory distress, he is maintained on high flow oxygen of 11 L/min, he is still complaining of cough and chest discomfort otherwise he denies any complaints, there is no fever or chills no headache or dizziness no chest pain no nausea or vomiting no abdominal pain no diarrhea no blood in the s tools no burning with urination no frequency or urgency and no hematuria. Testing for COVID was positive yesterday. Pulmonary and infectious disease are following. On 01/27/2024 patient is alert and oriented x 3 patient continued to having increase oxygen demands. Per nursing staff pulmonary services were notified patient currently on high flow [address] scan of chest this morning which showed diffuse groundglass opacities and correlation for atypical pneumonia. Patient remains on IV Kefzol and prednisone. Pulmonary and infectious disease services following. Cardiology also following On 01/28/2024 patient is alert and oriented x 3. Patient at this time is resting comfortably in bed. Patient remains on Airvo 60%. Temp 97.6, heart rate 95, respiratory rate 24, blood pressure 100/67. Pulmonary cardiology and infectious disease are following patient remains on IV Kefzol and Solu-Medrol On 01/29/2024 patient was seen and examined on the medical floor he is alert and oriented x 3 in no apparent distress,he is still maintained on high flow oxygen, he is complaining of generalized weakness and complaining of constipation he has very poor oral intake, there is no fever or chills no headache or dizziness no chest pain, he has shortness of breath with any activity no palpitation he has continuous cough no nausea or vomiting no abdominal pain no diarrhea and no uri nary symptoms. On 01/30/2024 patient was seen and examined in the ICU, he is alert responsive in no apparent distress maintained on high flow oxygen via Airvo, he was transferred to ICU due to worsening shortness of breath, chest x-ray today revealed interval development of a large left-sided pneumothorax estimated at 40%, he underwent chest tube placement, on the left. His vital exam reveals a temperature of 97.5 pulse 108 respiration 33 blood pressure 133/82 pulse ox is 98% on high flow cannula with FiO2 of 50% On 01/31/2024 patient remains in the intensive care unit. Chest tube in place. Current vital signs temp 97.9, heart rate 84, respiratory rate 23, blood pressure 102/71 with a pulse ox of 97% on high flow of 40%. Patient remains short of breath. Patient denies chest pain. Patient denies nausea vomiting or diarrhea. Patient denies any urinary burning or frequency On 02/01/2024 patient is alert and oriented x 3. Patient remains in the intensive care unit. Tube remains in place. Current vital signs temp 97.7, heart rate 79, respiratory rate 24, blood pressure 117/76 with a pulse ox of 100% on 6 L high flow. Patient reports some improvement with shortness of breat h. Patient denies chest pain. Patient denies nausea vomiting or diarrhea. On 02/02/2024 patient was seen and examined in the ICU, he is alert and oriented x 3 in no apparent distress, he is complaining of discomfort at the chest tube site, and complaining of shortness of breath otherwise he denies any complaints there is no fever or chills no headache or dizziness, no chest pain, he has occasional cough no nausea or vomiting no abdominal pain no diarrhea no urinary symptoms. Temperature is 97.4 pulse 90 respiration 23 blood pressure 106/78 pulse ox 95% on 4 L nasal cannula, white blood count 45.7 hemoglobin 11.1 platelet count 199 BUN 45 creatinine 0.89 On 02/03/2024 patient remains in the ICU alert and oriented x 3. Patient still has chest tube complaining of some discomfort at site. Speech services at bedside assessing swallow still recommending nectar thick liquids. Current vi donis signs temp 97.6, heart rate 93, respiratory rate 21. Patient denies chest pain or shortness of breath. Patient denies nausea vomiting or diarrhea. Patient denies any urinary burning and frequency. On 02/04/2024 patient was seen and examined in the intensive care unit, he is alert and oriented in no apparent distress, he is complaining of pain in the chest wall site of the chest tube otherwise he denies any complaints, there is no fever or chills no headache or dizziness no chest pain no shortness of breath no cough no nausea or vomiting no abdominal pain no diarrhea no urinary symptoms , temperature is 97.5 pulse 89 respiration 16 blood pressure 108/68 pulse ox 96% on 4 L nasal cannula. His white blood count is 28.9 hemoglobin 11.0 platelet count 147 sodium 136 potassium 3.9 chloride 111 CO2 23 BUN 30 creatinine 0.94 On 02/05/2024 patient remains in the intensive care unit alert and oriented 3. Patient is down to 2 L. Chest tube remains in place.Patient's appetite remains poor patient has been started on Megace. Will consult when necessary for possible discharge planning. Patient denies chest pain or shortness breath. Patient denies nausea vomiting or diarrhea. Patient denies any urinary burning or frequency. Current vital signs temp 97.6, heart rate 80, respiratory rate 19,, Blood pressure 98/70 with pulse ox 95% on 2 L On 02/06/2024 patient was seen and examined on the telemetry floor, he is alert and oriented x 3. Current vital signs temp 97.9, heart rate 93, respiratory rate 18. blood pressure 122/60 Patient denies chest pain or shortness of breath. Patient denies nausea vomiting or diarrhea. Patient denies any urinary burning and frequency. On 03/05/2024 patient is alert and oriented x 3. Patient complaining about difficulty sleeping melatonin added. Discharge planning to [facility]. Patient remains with chest tube awaiting further recommendations from pulmonary services. Current vital signs temp 97.3, heart rate 78, respiratory rate 18, bl ood pressure 133/80 with a pulse ox of 93% on 4 L. Patient denies chest pain or shortness of breath. Patient denies nausea vomiting or diarrhea. Patient denies any urinary burning or frequency On 02/08/2024 patient is alert and oriented x 3. Cardiothoracic surgery was consulted due to left-sided pneumothorax with chest tube placement with continuous airleak at this time recommendations to continue wall suction and will monitor. Patient denies chest pain or shortness of breath. Patient denies nausea vomiting or diarrhea. Patient denies any urinary burning or frequency. Current temp 97.3, heart rate 68, respiratory rate 18, blood pressure 96/63 with a pulse ox of 92% on 4 L On 02/09/2024 patient is alert and oriented x 3. Patient was transferred to the intensive care unit last night due to large bloody bowel movement and hypotension. At this time patient's Eliquis has been on hold. Surgical services have been consulted. Patient denies chest pain or shortness of breath. Patient denies nausea vomiting or diarrhea. Patient denies any urinary burning or frequency. Patient may require norepinephrine for blood pressure support continue ICU management at this time. Critical care services following On 02/10/2024 patient is alert and oriented x 3. Per nursing staff patient has had no further episodes of large-volume bloody bowel movement. Patient still having some hypotension. Patient was evaluated by surgical services Eliquis remains on hold hemoglobin remained stable continue monitoring at this time. Patient also being followed by cardiothoracic surgery chest tube remains to suction at this time. Patient denies chest pain or shortness of breath. Patient denies any urinary burning or frequency. Patient denies nausea vomiting or diarrhea. On 02/11/2024 patient was seen and examined in the ICU, he is alert and oriented x 3 in no apparent distress, he is still complaining of left-sided chest wall pain site of his chest tube, otherwise he denies any complaints there is no fever or chills no headache or dizziness no chest pain no shortness of breath no cough no nausea or vomiting no abdominal pain no diarrhea no blood in the stools no burning with urination no frequency or urgency and no hematuria, patient has very low oral intake, he was encouraged in length in regard to increasing his diet and taking some protein supplements, albumin is low to 1.7, alternatively patient may need a Dobbhoff tube with enteral feeding. Will continue to follow closely On 02/12/2024 patient is alert and oriented x 3 remains in the ICU. Patient remains on IV Lasix patient having increased lower extremity edema. Appetite remains poor. Current vital signs temp 98.7, heart rate 89, respiratory rate 19, blood pressure 88/52 with a pulse ox of 93% on Airvo 60%. Patient denies chest pain or shortness of breath. Patient denies nausea vomiting or diarrhea. Patient denies any urinary burning or frequency On 02/13/2024 patient's alert and oriented remains in the intensive care unit. Remains on IV Lasix. Patient also remains on IV Zosyn. Multiple consults fo llowing. Patient remains on Airvo 60% and patient was started on Levophed for pressure support On 02/14/2024 patient is alert and oriented x 3. Edema has slightly improved. Patient remains on Levophed. Current vital signs temp 98.0, heart rate 94, respiratory rate 19, blood pressure 102/73 with a pulse ox of 96% on Airvo 60%. Hemoglobin 8.9, white blood cell 28.6, creatinine 1.14 bun 33 On 02/15/2024 patient is alert and oriented x 3 patient remains in the intensive care unit Levophed getting weaned down per nursing staff chest tube has been removed. Patient remains on Airvo. Current vital signs temp 98.2, heart 81, respiratory rate 15, blood pressure 105/67 with a pulse ox of 112/64. Pulse ox 94% with an Airvo FiO2 of 50%. Patient denies chest pain or shortness of breath. Patient denies nausea vomiting or diarrhea. Patient denies any urinary burning or frequency. On 02/16/2024 patient was seen and examined in the ICU he is alert and oriented x 3 in no apparent distress there is no fever or chills no headache or dizziness no chest pain no shortness of breath, at rest patient is maintained on Airvo, high flow oxygen, no nausea or vomiting no abdominal pain no diarrhea no urinary symptoms. On 02/17/2024 patient remains in the ICU alert and oriented x 3. Patient is d own to high flow and Levophed has been turned off. Per critical care will continue to monitor patient in the ICU for an additional 24 hours. Current temp 97.4, heart rate 87, respiratory rate 17, blood pressure 114/62 with a pulse ox of 95% on high flow 6 L. Patient denies chest pain or shortness of breath. Patient denies nausea vomiting or diarrhea. Patient denies any urinary burning or frequency On 02/18/2024 patient was seen and examined on the telemetry floor, he is alert and oriented x 3 in no apparent distress, he is still complaining of shortness of breath , he is maintained on oxygen 4 L via nasal cannula , he is complaining of chest wall pain site of his old chest tube , otherwise he denies any complaints at this time , there is no fever or chills, no headache or dizziness no chest pain he has occasional cough no nausea or vomiting no abdominal pain no diarrhea and no urinary symptoms, patient has been bedbound for several days, he will need to transfer to rehab when medically clear. On 02/19/2024 patient is alert and oriented x 3. At this time patient denies chest pain or shortness of breath. Patient denies nausea vomiting or diarrhea. Patient denies any urinary burning and frequency. Current vital signs temp 97.3, heart rate 77, respiratory rate 17, blood pressure 110/74 with a pulse ox of 94% on 4 L On 02/20/2024 patient was seen and examined on the medical floor he is alert and oriented x 3 in no apparent distress he is maintained on oxygen 4 L via nasal cannula, he denies any chest pain or shortness of breath at rest vital exam reveals a temperature of 97.4 pulse 85 respiration 13 blood pressure 108/74 pulse ox 95% on 4 L nasal cannula, white blood count 29.95 hemoglobin 9.9 platelet count 237 BUN 37.5 creatinine 1.2, medication and labs were reviewed continue with current management will recheck in a.m. On 02/21/2024 patient is alert and oriented 3. Patient reports some increased shortness of breath intubated have been adjusted per ID will order chest x- ray.current vital signs temp 97.3, heart rate 97, respiratory rate 20, blood pressure 99/60 with pulse ox 92% on 4 L. Infectious disease, pulmonary and surgical services are following On 02/22/2024 patient is alert and oriented x 3. Patient reports some improvement. Chest x-ray showing interstitial infiltrate. Pulmonary and infectious disease services are following. Current vital signs temp 97.6, heart rate 89, respiratory rate 20, blood pressure 97/66 with a pulse ox of 95% on 4 L patient denies chest pain. Patient denies nausea vomiting or diarrhea. Patient denies any urinary burning or frequency. On 02/23/2024 patient was seen and examined on the medical floor he is alert and oriented x 3 in no apparent distress he is still complaining of cough and shortness of breath otherwise he denies any complaints there is no fever or chills no headache or dizziness no chest pain no nausea or vomiting no abdominal pain no diarrhea and no urinary symptoms On 02/25/2024 patient is alert and oriented x 3. Patient still having some shortness of breath. Patient remains on Bactrim, IV Rocephin and Diflucan. Pulmonary and infectious disease services are following. Current vital signs temp 97.0, heart rate 94, respiratory rate 16, blood pressure 90/48 with a pulse ox of 94% on 4 L. On 02/26/2024 patient was seen and examined on the medical floor he is alert and oriented x 3 in no apparent distress he is still complaining of shortness of breath otherwise he denies any complaints there is no fever or chills no headache or dizziness no chest pain he has occasional cough no nausea or vomiting no abdominal pain no diarrhea and no urinary symptoms. He remains on oxygen 4 L via nasal cannula. Patient is improving gradually. On 02/27/2024 patient is alert and oriented x 3 patient is improving gradually. Patient denies any chest pain or shortness of breath. Patient denies nausea vomiting or diarrhea. Patient denies any urinary burning or frequency. Current vital signs temp 97.8, heart rate 91, respiratory rate 93/55 with a pulse ox of 96% on 4 L On 02/28/2024 patient is alert and oriented x 3. White blood cell 26. Current vital signs temp 97.7, heart rate 85, respiratory rate 18, blood pressure 105/66 with a pulse ox of 94% on 4 L patient still having some shortness of breath. Patient denies chest pain. Patient denies nausea vomiting or diarrhea. Patient denies any urinary burning or frequency 02/28 Patient lying in bed looks comfortable, states abdominal pain controlled,. No nausea vomiting. He tolerated simple diet last night but has been refusing snacks since then. He is taking Austin frequently for pain control, Liver enzymes are trending up today , AST 350 and ALT 345 Bilirubin normal at 1.1. We took the Tylenol part of his Austin and started him on oxycodone. Hemoglobin stable at 9.4 Potassium slightly high at 5.8, treatment was given and we will going to check level patient remains on ceftriaxone and Eliquis Patient remains on ceftriaxone 03/01 Patient looks comfortable, he is generally weak No chest pain or dyspnea No other new complaints Hyperkalemia yesterday was improved. Repeat potassium 4.6 yesterday. Potassium level from today still pending Patient received extra dose of IV Lasix which might help with his high potassium Also patient continue with antibiotics as per ID team including IV vancomycin 03/02 Patient still mildly tachypneic, still on 6 L oxygen via nasal cannula Repeat chest x-ray showing bilateral infiltrate, right more than left, similar to before slightly worse. Leukocytosis is trending down to 23,000, hemoglobin slightly down at 8.7 from 9.4 Repeat labs in the morning including liver enzymes patient currently on IV vancomycin and ceftriaxone, last dose on 03/03 tomorrow per ID team Objective - Vital Signs Vital signs: Vital Signs Temp 97.3 F L 03/02/24 08:00 Pulse 88 03/02/24 08:00 Resp 18 03/02/24 08:00 BP 91/54 03/02/24 08:00 Pulse Ox 92 L 03/02/24 08:00 FiO2 40 02/16/24 12:48 Intake & Output 03/01/24 03/02/24 03/02/24 18:59 06:59 18:59 Intake Total 240 Output Total 800 Balance -800 240 Weight 70.4 kg 70.1 kg Intake: Oral 240 Output: Urine 800 Other: Voiding Method Indwelling Catheter Indwelling Catheter Indwelling Catheter # Voids 550 ABP, PAP, CO, CI - Last Documented Arterial Blood Pressure 122/71 - Exam GENERAL: The patient is alert and oriented x3, not in any acute distress. Well developed, well nourished. HEENT: Pupils are round and equally reacting to light. EOMI. No scleral icterus. No conjunctival pallor. Normocephalic, atraumatic. No pharyngeal erythema. No thyromegaly. CARDIOVASCULAR: S1 and S2 present. No murmurs, rubs, or gallops. PULMONARY: Chest is clear to auscultation, no wheezing , no crackles. ABDOMEN: Soft, nontender, nondistended, normoactive bowel sounds. No palpable organomegaly. MUSCULOSKELETAL: No joint swelling or deformity. EXTREMITIES: No cyanosis, clubbing, or pedal edema. NEUROLOGICAL: Gross neurological examination did not reveal any focal deficits. SKIN: No rashes. no petechiae. - Labs CBC & Chem 7: 03/02/24 04:03 03/02/24 04:03 Labs: Abnormal Lab Results - Last 24 Hours (Table) 03/01/24 03/01/24 03/01/24 Range/Units 12:00 13:04 16:50 WBC (4.50-10.00) X 10*3/uL RBC (4.40-5.60) X 10*6/uL Hgb (13.0-17.0) g/dL Hct (39.6-50.0) % MCV (80.0-97.0) FL MCH (27.0-32.0) pg RDW (11.5-14.5) % MPV (9.5-12.2) FL Immature Gran # (0.00-0.04) X 10*3/uL Neutrophils # (1.80-7.70) X 10*3/uL Monocytes # (0.20-1.00) X 10*3/uL Eosinophils # (0.04-0.35) X 10*3/uL Basophils # (0.00-0.10) X 10*3/uL NRBC/100 WBC Diff (0.00-0.01) X 10*3/uL Sodium 134 L (137-145) mmol/L BUN (9-20) mg/dL POC Glucose (mg/dL) 116 H 119 H (70-110) mg/dL Calcium (8.4-10.2) mg/dL 03/01/24 03/02/24 03/02/24 Range/Units 21:58 04:03 04:03 WBC 23.83 H (4.50-10.00) X 10*3/uL RBC 2.49 L (4.40-5.60) X 10*6/uL Hgb 8.7 L (13.0-17.0) g/dL Hct 27.2 L (39.6-50.0) % MCV 109.2 H (80.0-97.0) FL MCH 34.9 H (27.0-32.0) pg RDW 22.1 H (11.5-14.5) % MPV 13.5 H (9.5-12.2) FL Immature Gran # 0.75 H (0.00-0.04) X 10*3/uL Neutrophils # 20.28 H (1.80-7.70) X 10*3/uL Monocytes # 1.30 H (0.20-1.00) X 10*3/uL Eosinophils # 0 L (0.04-0.35) X 10*3/uL Basophils # 0.11 H (0.00-0.10) X 10*3/uL NRBC/100 WBC Diff 0.03 H (0.00-0.01) X 10*3/uL Sodium 131 L (137-145) mmol/L BUN 30 H (9-20) mg/dL POC Glucose (mg/dL) 140 H (70-110) mg/dL Calcium 7.2 L (8.4-10.2) mg/dL 03/02/24 Range/Units 06:09 WBC (4.50-10.00) X 10*3/uL RBC (4.40-5.60) X 10*6/uL Hgb (13.0-17.0) g/dL Hct (39.6-50.0) % MCV (80.0-97.0) FL MCH (27.0-32.0) pg RDW (11.5-14.5) % MPV (9.5-12.2) FL Immature Gran # (0.00-0.04) X 10*3/uL Neutrophils # (1.80-7.70) X 10*3/uL Monocytes # (0.20-1.00) X 10*3/uL Eosinophils # (0.04-0.35) X 10*3/uL Basophils # (0.00-0.10) X 10*3/uL NRBC/100 WBC Diff (0.00-0.01) X 10*3/uL Sodium (137-145) mmol/L BUN (9-20) mg/dL POC Glucose (mg/dL) 121 H (70-110) mg/dL Calcium (8.4-10.2) mg/dL Assessment and Plan Assessment: 1. Pneumonia with sepsis as evident by elevated lactic acid and leukocytosis. Continue with ceftriaxone 2. Acute kidney injury secondary to sepsis and dehydration, kidney function improved significantly since admission 3. History of atrial fibrillation maintained on Eliquis, with episodes of rapid ventricular response during this presentation 4. History of CHF 5. Acute hypoxic respiratory failure requiring high flow oxygen supplements pulmonary are following 6. Elevated liver enzymes we will hold statin at this time and recheck. Liver enzymes continue to trend up so we discontinued Tylenol 7. Positive blood culture for Staphylococcus aureus, consultation for i nfectious disease was initiated 8. COVID-19 positive 9. Left-sided pneumothorax requiring left-sided chest tube insertion 10. GI bleed. Surgical services consulted Eliquis currently on hold 11. Hypotension secondary to above patient currently in ICU may require vasopressors for blood pressure support DVT prophylaxis Eliquis. GI prophylaxis Protonix Pulmonary services consulted, infectious disease cardiology consultation Blood and sputum cultures ordered Repeat labs ordered
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
[2024-03-02 16:44] LABS: Glucose,Whole Blood 135 mg/dL (70-110)
[2024-03-02 20:22] LABS: Glucose,Whole Blood 140 mg/dL (70-110)
[2024-03-03 04:31] LABS: African American GFR (CKD) 82 (>60 ml/min/1.73 sqM); Anion Gap 6 mmol/L; Blood Urea Nitrogen 26 mg/dL (9-20); Calcium 7.3 mg/dL (8.4-10.2); Carbon Dioxide 28 mmol/L (22-30); Chloride 100 mmol/L (98-107); Glucose 86 mg/dL (74-99); Non-African American GFR(CKD) 71 (>60 ml/min/1.73 sqM); Potassium 4.5 mmol/L (3.5-5.1); Sodium 134 mmol/L (137-145)
[2024-03-03 06:33] LABS: Glucose,Whole Blood 117 mg/dL (70-110)
[2024-03-03 09:13] LABS: Basophils % (A) 0.4 %; Eosinophils # (A) 0 X 10*3/uL (0.04-0.35); Eosinophils % (A) 0 %; HCT 27.2 % (39.6-50.0); HGB 8.5 g/dL (13.0-17.0); Lymphocytes # (A) 1.39 X 10*3/uL (0.90-5.00); Lymphocytes % (A) 5.3 %; MCHC 31.3 g/dL (32.0-37.0); MCV 108.8 FL (80.0-97.0); Mean Platelet Volume 13.3 FL (9.5-12.2); Monocytes # (A) 1.43 X 10*3/uL (0.20-1.00); Monocytes % (A) 5.4 %; NRBC Per 100 WBC 0.02 X 10*3/uL (0.00-0.01); Neutrophils # (A) 22.79 X 10*3/uL (1.80-7.70); Neutrophils % (A) 86.3 %; Platelet Count 289 X 10*3/uL (140-440); RDW 22.2 % (11.5-14.5)
[2024-03-03 11:32] LABS: Glucose,Whole Blood 155 mg/dL (70-110)
--- NOTE | 2024-03-03 14:24 | P.PN ---
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 Patient has had failure to thrive No significant improvement in the past [address] Callahan did discuss hospice with the patient again who seems more accepting Hospice consult placed I have personally seen and examined the patient, performed the documentation and the assessment and plan as written. Number of minutes spent on the visit: 10 Dictation was produced using [employer] dictation software. Please excuse any grammatical, word or spelling errors.
[2024-03-03] MEDS: FUROSEMIDE 10 MG/ML 4 ML VIAL IV STA (14:56)
--- NOTE | 2024-03-03 15:04 | P.PN ---
Subjective Progress Note Date: 03/02/24 Principal diagnosis: Reason for follow-up is left-sided pneumonia and MSSA bacteremia Patient is a 73-year-old with a past medical history significant for atrial fibrillation heart failure , close head injury patient presenting to the hospital for evaluation of increasing shortness of breath left lower chest pain, patient has been diagnosed with left-sided pneumonia and did have a positive blood culture with MSSA prompted this consultation.Patient did have a chest x-ray morning of 01/30/2024 with evidence of left-sided pneumothorax in this patient who status post chest tube placement on 01/30/2024 by pulmonary On today's evaluation that is 03/02/2024, the patient continues to be afebrile, the patient is on 6 L nasal oxygen complaining of some shortness of breath, the Pt denies having any chest pain or any worsening cough, the patient denies having any abdominal pain no vomiting or any diarrhea has been reported by the nursing staff. Patient white count slightly down to 23.83 creatinine 1.08 Objective - Vital Signs Vital signs: Vital Signs Temp 97.1 F L 03/02/24 14:00 Pulse 95 03/02/24 14:00 Resp 18 03/02/24 14:00 BP 96/64 03/02/24 14:00 Pulse Ox 94 L 03/02/24 14:00 FiO2 40 02/16/24 12:48 Intake & Output 03/01/24 03/02/24 03/02/24 18:59 06:59 18:59 Intake Total 240 Output Total 800 Balance -800 240 Weight 70.4 kg 70.1 kg Intake: Oral 240 Output: Urine 800 Other: Voiding Method Indwelling Catheter Indwelling Catheter Indwelling Catheter # Voids 550 ABP, PAP, CO, CI - Last Documented Arterial Blood Pressure 122/71 - Exam GENERAL DESCRIPTION: An elderly male lying in bed in no distress RESPIRATORY SYSTEM: Unlabored breathing , coarse breath sounds bilaterally HEART: S1 S2 regular rate and rhythm , ABDOMEN: Soft , no tenderness EXTREMITIES: Bilateral lower extremity wounds currently dressed - Labs CBC & Chem 7: 03/03/24 03:32 03/03/24 03:32 Labs: Abnormal Lab Results - Last 24 Hours (Table) 03/01/24 03/01/24 03/02/24 Range/Units 16:50 21:58 04:03 WBC (4.50-10.00) X 10*3/uL RBC (4.40-5.60) X 10*6/uL Hgb (13.0-17.0) g/dL Hct (39.6-50.0) % MCV (80.0-97.0) FL MCH (27.0-32.0) pg RDW (11.5-14.5) % MPV (9.5-12.2) FL Immature Gran # (0.00-0.04) X 10*3/uL Neutrophils # (1.80-7.70) X 10*3/uL Monocytes # (0.20-1.00) X 10*3/uL Eosinophils # (0.04-0.35) X 10*3/uL Basophils # (0.00-0.10) X 10*3/uL NRBC/100 WBC Diff (0.00-0.01) X 10*3/uL Sodium 131 L (137-145) mmol/L BUN 30 H (9-20) mg/dL POC Glucose (mg/dL) 119 H 140 H (70-110) mg/dL Calcium 7.2 L (8.4-10.2) mg/dL 03/02/24 03/02/24 Range/Units 04:03 06:09 WBC 23.83 H (4.50-10.00) X 10*3/uL RBC 2.49 L (4.40-5.60) X 10*6/uL Hgb 8.7 L (13.0-17.0) g/dL Hct 27.2 L (39.6-50.0) % MCV 109.2 H (80.0-97.0) FL MCH 34.9 H (27.0-32.0) pg RDW 22.1 H (11.5-14.5) % MPV 13.5 H (9.5-12.2) FL Immature Gran # 0.75 H (0.00-0.04) X 10*3/uL Neutrophils # 20.28 H (1.80-7.70) X 10*3/uL Monocytes # 1.30 H (0.20-1.00) X 10*3/uL Eosinophils # 0 L (0.04-0.35) X 10*3/uL Basophils # 0.11 H (0.00-0.10) X 10*3/uL NRBC/100 WBC Diff 0.03 H (0.00-0.01) X 10*3/uL Sodium (137-145) mmol/L BUN (9-20) mg/dL POC Glucose (mg/dL) 121 H (70-110) mg/dL Calcium (8.4-10.2) mg/dL Assessment and Plan (1) Bacteremia due to methicillin susceptible Staphylococcus aureus (MSSA) Current Visit: Yes Status: Acute Code(s): R78.81 - BACTEREMIA; B95.61 - METHICILLIN SUSCEP STAPH INFCT CAUSING DIS CLASSD ELSWHR SNOMED Code(s): 653148627 (2) Pneumonia Current Visit: Yes Status: Acute Code(s): J18.9 - PNEUMONIA, UNSPECIFIED ORGANISM SNOMED Code(s): 244132604 (3) Leukocytosis Current Visit: Yes Status: Acute Code(s): D72.829 - ELEVATED WHITE BLOOD CELL COUNT, UNSPECIFIED SNOMED Code(s): 214051833 Plan: 1patient presented to hospital with sepsis in this patient who did have leukocytosis tachycardia meeting criteria for SIRS source is left lower lobe pneumonia blood culture positive for MSSA repeat blood culture negative and the patient has completed antibiotic therapy for his bacteremia, CT of the chest did not show any empyema echocardiogram did not show any valvular abnormalities repeat blood culture negative, subsequent developing left-sided pneumothorax s/p is chest tube placement. Patient did have persistent leak CT surgery is closely following the patient considered to be high risk for any surgical procedure 2leukocytosis source is multifactorial sputum is positive for E. coli and Aleyda and also have a necrotic wound to the bilateral extremities more marked to the right leg likely pressure ulcer currently being treated with the Santyl, and has been surgically debrided by vascular surgery, CT of the chest was reviewed with radiologist, did show diffuse opacities 3patient is currently on Rocephin and Diflucan, vancomycin white count is slightly down and I will monitor closely Dictation was produced using [employer] software. please excuse any grammatical, word or spelling errors. Time with Patient: Less than 30
--- NOTE | 2024-03-03 15:05 | P.PN ---
Subjective Progress Note Date: 03/03/24 Principal diagnosis: Reason for follow-up is left-sided pneumonia and MSSA bacteremia Patient is a 73-year-old with a past medical history significant for atrial fibrillation heart failure , close head injury patient presenting to the hospital for evaluation of increasing shortness of breath left lower chest pain, patient has been diagnosed with left-sided pneumonia and did have a positive blood culture with MSSA prompted this consultation.Patient did have a chest x-ray morning of 01/30/2024 with evidence of left-sided pneumothorax in this patient who status post chest tube placement on 01/30/2024 by pulmonary On today's evaluation that is 03/03/2024, patient did not have any fever and denies any chills, patient is complaining of shortness of breath and is currently on 8 L high flow nasal cannula oxygen patient with no chest pain or worsening cough patient did not have any abdominal pain nausea vomiting or any loose stools. Patient white count is up to 26.40 creatinine 1.04 Objective - Vital Signs Vital signs: Vital Signs Temp 97.3 F L 03/03/24 13:55 Pulse 100 03/03/24 13:55 Resp 24 03/03/24 13:55 BP 86/60 03/03/24 13:55 Pulse Ox 86 L 03/03/24 13:55 FiO2 40 02/16/24 12:48 Intake & Output 03/02/24 03/03/24 03/03/24 18:59 06:59 18:59 Intake Total 896 Output Total 350 Balance 896 -350 Weight 70.874 kg Intake: Intake, IV Titration 250 Amount Vancomycin 1,250 mg In 250 Sodium Chloride 0.9% 250 ml @ 125 mls/hr IVPB Q16H [facility] Rx#:[id number] Oral 646 Output: Urine 350 Other: Voiding Method Indwelling Catheter Indwelling Catheter Indwelling Catheter ABP, PAP, CO, CI - Last Documented Arterial Blood Pressure 122/71 - Exam GENERAL DESCRIPTION: An elderly male lying in bed in no distress RESPIRATORY SYSTEM: Unlabored breathing , coarse breath sounds bilaterally HEART: S1 S2 regular rate and rhythm , ABDOMEN: Soft , no tenderness EXTREMITIES: Bilateral lower extremity wounds currently dressed - Labs CBC & Chem 7: 03/03/24 03:32 03/03/24 03:32 Labs: Abnormal Lab Results - Last 24 Hours (Table) 03/02/24 03/02/24 03/03/24 Range/Units 16:43 20:21 03:32 WBC (4.50-10.00) X 10*3/uL RBC (4.40-5.60) X 10*6/uL Hgb (13.0-17.0) g/dL Hct (39.6-50.0) % MCV (80.0-97.0) FL MCH (27.0-32.0) pg MCHC (32.0-37.0) g/dL RDW (11.5-14.5) % MPV (9.5-12.2) FL Immature Gran # (0.00-0.04) X 10*3/uL Neutrophils # (1.80-7.70) X 10*3/uL Monocytes # (0.20-1.00) X 10*3/uL Eosinophils # (0.04-0.35) X 10*3/uL NRBC/100 WBC Diff (0.00-0.01) X 10*3/uL Sodium 134 L (137-145) mmol/L BUN 26 H (9-20) mg/dL POC Glucose (mg/dL) 135 H 140 H (70-110) mg/dL Calcium 7.3 L (8.4-10.2) mg/dL 03/03/24 03/03/24 03/03/24 Range/Units 03:32 06:32 11:30 WBC 26.40 H (4.50-10.00) X 10*3/uL RBC 2.50 L (4.40-5.60) X 10*6/uL Hgb 8.5 L (13.0-17.0) g/dL Hct 27.2 L (39.6-50.0) % MCV 108.8 H (80.0-97.0) FL MCH 34.0 H (27.0-32.0) pg MCHC 31.3 L (32.0-37.0) g/dL RDW 22.2 H (11.5-14.5) % MPV 13.3 H (9.5-12.2) FL Immature Gran # 0.69 H (0.00-0.04) X 10*3/uL Neutrophils # 22.79 H (1.80-7.70) X 10*3/uL Monocytes # 1.43 H (0.20-1.00) X 10*3/uL Eosinophils # 0 L (0.04-0.35) X 10*3/uL NRBC/100 WBC Diff 0.02 H (0.00-0.01) X 10*3/uL Sodium (137-145) mmol/L BUN (9-20) mg/dL POC Glucose (mg/dL) 117 H 155 H (70-110) mg/dL Calcium (8.4-10.2) mg/dL Assessment and Plan (1) Bacteremia due to methicillin susceptible Staphylococcus aureus (MSSA) Current Visit: Yes Status: Acute Code(s): R78.81 - BACTEREMIA; B95.61 - METHICILLIN SUSCEP STAPH INFCT CAUSING DIS CLASSD ELSWHR SNOMED Code(s): 808187959 (2) Pneumonia Current Visit: Yes Status: Acute Code(s): J18.9 - PNEUMONIA, UNSPECIFIED ORGANISM SNOMED Code(s): 303840647 (3) Leukocytosis Current Visit: Yes Status: Acute Code(s): D72.829 - ELEVATED WHITE BLOOD CELL COUNT, UNSPECIFIED SNOMED Code(s): 640537022 Plan: 1patient presented to hospital with sepsis in this patient who did have leukoc ytosis tachycardia meeting criteria for SIRS source is left lower lobe pneumonia blood culture positive for MSSA repeat blood culture negative and the patient has completed antibiotic therapy for his bacteremia, CT of the chest did not show any empyema echocardiogram did not show any valvular abnormalities repeat blood culture negative, subsequent developing left-sided pneumothorax s/p is chest tube placement. Patient did have persistent leak CT surgery is closely following the patient considered to be high risk for any surgical procedure 2leukocytosis source is multifactorial sputum is positive for E. coli and Aleyda and also have a necrotic wound to the bilateral extremities more marked to the right leg likely pressure ulcer currently being treated with the Santyl, and has been surgically debrided by vascular surgery, CT of the chest was reviewed with radiologist, did show diffuse opacities 3patient is currently on Rocephin and Diflucan, vancomycin white count is up again today and also have worsening of his respiratory status requiring more supplemental oxygen pulmonary has suggested hospice which may be appropriate Dictation was produced using dragon dictation software. please excuse any grammatical, word or spelling errors. Time with Patient: Less than 30
[2024-03-03 16:39] LABS: Glucose,Whole Blood 192 mg/dL (70-110)
[2024-03-03] MEDS: MORPHINE SULFATE 4 MG/ML SYRINGE IVP PRN (16:58)
[2024-03-03 20:52] LABS: Glucose,Whole Blood 87 mg/dL (70-110)
--- NOTE | 2024-03-03 22:37 | P.PN ---
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 Immature Gran # (0.00-0.04) X 10*3/uL Neutrophils # (1.80-7.70) X 10*3/uL Monocytes # (0.20-1.00) X 10*3/uL Eosinophils # (0.04-0.35) X 10*3/uL NRBC/100 WBC Diff (0.00-0.01) X 10*3/uL Sodium (137-145) mmol/L BUN (9-20) mg/dL POC Glucose (mg/dL) 155 H 192 H (70-110) mg/dL Calcium (8.4-10.2) mg/dL
[2024-03-03] MEDS: VANCOMYCIN TROUGH DUE 1 EACH MISC MISCELLANE ONE (22:53)
[2024-03-03] MEDS: VANCOMYCIN 1,000 MG in SODIUM CHLORIDE 0.9% 250 ML IVPB SCH (23:55)
[2024-03-04] MEDS: LORazepam 2 MG/ML INJ IV PRN (00:52)
[2024-03-04 04:32] LABS: African American GFR (CKD) 72 (>60 ml/min/1.73 sqM); Non-African American GFR(CKD) 63 (>60 ml/min/1.73 sqM)
[2024-03-04 06:23] LABS: Glucose,Whole Blood 191 mg/dL (70-110)
[2024-03-04 08:52] VITALS: BP 95/64; PULSE 89; RESP 18; TEMP 97.3
[2024-03-04 11:18] LABS: Glucose,Whole Blood 127 mg/dL (70-110)
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
--- NOTE | 2024-03-04 14:18 | P.PN ---
Subjective Progress Note Date: 03/04/24 Principal diagnosis: Reason for follow-up is left-sided pneumonia and MSSA bacteremia Patient is a 73-year-old with a past medical history significant for atrial fibrillation heart failure , close head injury patient presenting to the hospital for evaluation of increasing shortness of breath left lower chest pain, patient has been diagnosed with left-sided pneumonia and did have a positive blood culture with MSSA prompted this consultation.Patient did have a chest x-ray morning of 01/30/2024 with evidence of left-sided pneumothorax in this patient who status post chest tube placement on 01/30/2024 by pulmonary On today's evaluation that is 03/04/2024, Patient is afebrile patient is currently on high flow nasal cannula oxygen 15 L patient has been complaining of shortness of breath and also having a cough no nausea no vomiting no abdominal pain or diarrhea has been reported. Patient did have a creatinine 1.16 Vanco trough is 21.5 Objective - Vital Signs Vital signs: Vital Signs Temp 97.3 F L 03/04/24 07:10 Pulse 89 03/04/24 07:10 Resp 18 03/04/24 07:10 BP 95/64 03/04/24 07:10 Pulse Ox 100 03/04/24 07:10 FiO2 40 02/16/24 12:48 Intake & Output 03/03/24 03/04/24 03/04/24 18:59 06:59 18:59 Output Total 600 350 200 Balance -600 -350 -200 Weight 70.9 kg Output: Urine 600 350 200 Other: Voiding Method Indwelling Catheter Indwelling Catheter Indwelling Catheter ABP, PAP, CO, CI - Last Documented Arterial Blood Pressure 122/71 - Exam GENERAL DESCRIPTION: An elderly male lying in bed in no distress RESPIRATORY SYSTEM: Unlabored breathing , coarse breath sounds bilaterally HEART: S1 S2 regular rate and rhythm , ABDOMEN: Soft , no tenderness EXTREMITIES: Bilateral lower extremity wounds currently dressed minimal drainage - Labs CBC & Chem 7: 03/03/24 03:32 03/04/24 02:49 Labs: Abnormal Lab Results - Last 24 Hours (Table) 03/03/24 03/04/24 03/04/24 Range/Units 16:37 06:20 11:17 POC Glucose (mg/dL) 192 H 191 H 127 H (70-110) mg/dL Assessment and Plan (1) Bacteremia due to methicillin susceptible Staphylococcus aureus (MSSA) Status: Acute Code(s): R78.81 - BACTEREMIA; B95.61 - METHICILLIN SUSCEP STAPH INFCT CAUSING DIS CLASSD [id number] SNOMED Code(s): 098837533 (2) Pneumonia Status: Acute Code(s): J18.9 - PNEUMONIA, UNSPECIFIED ORGANISM SNOMED Code(s): 995604784 (3) Leukocytosis Status: Acute Code(s): D72.829 - ELEVATED WHITE BLOOD CELL COUNT, UNSPECIFIED SNOMED Code(s): 248971009 Plan: 1patient presented to hospital with sepsis in this patient who did have leukocytosis tachycardia meeting criteria for SIRS source is left lower lobe pneumonia blood culture positive for MSSA repeat blood culture negative and the patient has completed antibiotic therapy for his bacteremia, CT of the chest did not show any empyema echocardiogram did not show any valvular abnormalities repeat blood culture negative, subsequent developing left-sided pneumothorax s/p is chest tube placement. Patient did have persistent leak CT surgery is closely following the patient considered to be high risk for any surgical procedure 2leukocytosis source is multifactorial sputum is positive for E. coli and Aleyda and also have a necrotic wound to the bilateral extremities more marked to the right leg likely pressure ulcer currently being treated with the Santyl, and has been surgically debrided by vascular surgery, CT of the chest was reviewed with radiologist, did show diffuse opacities 3patient is currently on Rocephin and Diflucan, vancomycin and did have worsening of his respiratory status requiring high flow nasal cannula oxygen keeping in mind overall poor prognosis, hospice may be a better option which the patient is thinking about Dictation was produced using [employer] software. please excuse any grammatical, word or spelling errors. Time with Patient: Less than 30
--- NOTE | 2024-03-04 16:23 | P.DS ---
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 05/09/19 [Rx] Apixaban [Eliquis] 2.5 mg PO BID tablet 05/09/19 [Rx] HYDROcodone/APAP 7.5-325MG [[place] 7.5-325] 1 tab PO Q6H PRN 12/21/19 [History] allopurinoL [Zyloprim] 100 mg PO DAILY 09/22/20 [History] traZODone HCL 150 mg PO HS 01/21/24 [History] Follow up Appointment(s)/Referral(s): Nenita Ledezma MD [Primary Care Provider] - 1-2 days [facility] [place], [NON-STAFF] - As Needed Discharge Disposition: HOME WITH HOSPICE
--- NOTE | 2024-03-06 14:29 | CDI ---
Documentation Clarification Form Date: 03/06/2024 01:59:05 PM From: Chiquita To Phone: Admit Date: 01/21/2024 02:41:00 PM Patient Name: Rodriguez Jackson Visit Number: [id number] Discharge Date: 03/04/2024 01:54:00 PM ATTENTION: The Clinical Documentation Specialists (CDI) and [facility] Coding Staff appreciate your assistance in clarifying documentation. Please respond to the clarification below the line at the bottom and electronically sign. The CDI & [facility] Coding staff will review the response and follow-up if needed. Please note: Queries are made part of the Legal Health Record. If you have any questions, please contact the author of this message via ITS. Doctor/Provider: Yulia Pickett LT hemothorax,likelytraumatic per 01/29 Progress Note may lack sufficient clinical evidence/support in the medical record. Additional clarification is requested. History/Risk Factors: 73yo M, Acute LT-sidedpneumothorax, LT hemothorax,pulmonary contusion, MSSA septicemia,PNA, COVID, Septic shockrequiring, KENDALL, dehydration, A Fib, Hx TBI & splenectomy Hx postfall, GIB, FTT, severe PCM Clinical Indicators: Nopneumothorax per CXR 01/25 Interval development of a moderate to large LT-sidedpneumothoraxestimated at 40% 01/29 CXR Treatment: chest tube insertionon January 30, 2024, subsequentlyremovedDecember 2023 Please clarify which diagnosis is most appropriate: [ x ] Traumaticpneumothorax [ x] Present on Admission [ ] Not Present on Admission [ ] Non-Traumaticpneumothorax [ ] Present on Admission [ ] Not Present on Admission [ ] Other (please specify) [ ] Unable to determine (Template Last Revised: May 2020) MTDD
--- NOTE | 2024-03-06 18:21 | CDI ---
Documentation Clarification Form Date: From: Chiquita To Phone: Admit Date: 01/21/2024 02:41:00 PM Patient Name: Rodriguez Jackson Visit Number: [id number] Discharge Date: 03/04/2024 01:54:00 PM ATTENTION: The Clinical Documentation Specialists (CDI) and [facility] Coding Staff appreciate your assistance in clarifying documentation. Please respond to the clarification below the line at the bottom and electronically sign. The CDI & [facility] Coding staff will review the response and follow-up if needed. Please note: Queries are made part of the Legal Health Record. If you have any questions, please contact the author of this message via ITS. Doctor/Provider: Loco Garcia Unspecified CKD is documented per Consult Note 01/22, Progress Note 01/23 & 01/24. Additional clarification regarding the stage of CKD is requested. History/Risk Factors: 73yo M, Acute LT-sidedpneumothorax,LT hemothorax,pulmonary contusion,MSSA septicemia,PNA,COVID,Septic shockrequiring,KENDALL,dehydration,A Fib, HxTBIsplenectomyHx postfall, GIB,FTT,severe PCM Clinical Indicators: BUN: 01/20 51 01/21 40 01/22 31 CR: 01/21 1.77 01/22 1.04 01/23 1.18 GFR: 01/20 37-43 03/04 63 Treatment: monitored Please clarify the stage of the CKD, if known: [ x ] CKD Stage 2 [ ] CKD Stage 3a [ ] CKD Stage 3b [ ] Other, please specify [ ] Unable to determine Reference: National Kidney Foundation Stage 1 eGFR = 90 and kidney damage for =3 months Stage 2 eGFR 60-89 and kidney damage for =3 months Stage 3a eGFR 45-59 and kidney damage for =3 months Stage 3b eGFR 30-44 and kidney damage for =3 months Stage 4 eGFR 15-29 r and kidney damage for =3 months Stage 5 eGFR <15 and kidney damage for =3 months (Template last revised: March 2023) MTDD
--- NOTE | 2024-03-06 18:36 | CDI ---
Documentation Clarification Form Date: 03/06/2024 06:25:30 PM From: Chiquita To Phone: Admit Date: 01/21/2024 02:41:00 PM Patient Name: Rodriguez Jackson Visit Number: [id number] Discharge Date: 03/04/2024 01:54:00 PM ATTENTION: The Clinical Documentation Specialists (CDI) and [facility] Coding Staff appreciate your assistance in clarifying documentation. Please respond to the clarification below the line at the bottom and electronically sign. The CDI & [facility] Coding staff will review the response and follow-up if needed. Please note: Queries are made part of the Legal Health Record. If you have any questions, please contact the author of this message via ITS. Doctor/Provider: Loco Garcia A bilateral extremities pressure ulcer is documented per Progress Note 02/27- 03/04. Additional clarification regarding the stage of the pressure ulcer is requested. History/Risk Factors: 73yo M, Acute LT-sided pneumothorax, LT hemothorax, pulmonary contusion, MSSA septicemia, PNA, COVID, Septic shock requiring, KENDALL, dehydration, A Fib, Hx TBI splenectomy Hx post fall, GIB, FTT, severe PCM Clinical Indicators: Wound description/Location: necroticwoundBLE; more marked to the right leg Treatment: start treatment with the Santyl, get vascular surgery evaluation for debridement Please clarify the stage of BLE pressure ulcer, if known: Left [ ] Deep tissue injury [ ] Stage 1 Pressure Ulcer [ ] Stage 2 Pressure Ulcer [ ] Other condition, please specify [ x] Unable to determine Right [ ] Deep tissue injury [ ] Stage 1 Pressure Ulcer [ ] Stage 2 Pressure Ulcer [ ] Other condition, please specify [ x ] Unable to determine Clinical Definitions: Stage 1 Pressure Ulcer: intact skin, non-blanching redness of local area Stage 2 Pressure Ulcer: Partial thickness, loss of dermis, pink wound bed Stage 3 Pressure Ulcer: Full thickness tissue loss Stage 4 Pressure Ulcer: Full thickness tissue loss with exposed bone, tendon, or muscle. Unstageable pressure ulcer: Full thickness tissue loss in which the base of the ulcer is covered by slough (yellow, crane, jaimes, green or brown) and/or eschar (crane, brown or black) in the wound bed. (Template Last Revised: May 2020) MTDD
--- NOTE | 2024-03-08 13:50 | CDI ---
Documentation Clarification Form Date: 03/08/2024 01:27:19 PM From: Chiquita To Phone: Admit Date: 01/21/2024 02:41:00 PM Patient Name: Rodriguez Jackson Visit Number: [id number] Discharge Date: 03/04/2024 01:54:00 PM ATTENTION: The Clinical Documentation Specialists (CDI) and [facility] Coding Staff appreciate your assistance in clarifying documentation. Please respond to the clarification below the line at the bottom and electronically sign. The CDI & [facility] Coding staff will review the response and follow-up if needed. Please note: Queries are made part of the Legal Health Record. If you have any questions, please contact the author of this message via ITS. Doctor/Provider: Loco Garcia Your patient has possiblefluid overload/CHF per 01/23 Progress Note. Based on this information and the findings below, is there an additional diagnosis that is clinically appropriate for this patient? History/Risk Factors: 73yo M, AHRF, PNA, A Fib, staphylococcal sepsis, KENDALL, dehydration, Hx TBI, sp fall w chest wall contusion. Clinical Indicators: VS/Pulse OX: 93-97 BNP: 2370 Echo: Technically difficultstudywith poor acoustic windows. Hyperdynamic LV. LVEF 65 to 70%. No obviousregional wall motionabnormality. Mild biatrialdilatation. No obviousvalvedysfunctionappreciated. NoPericardial effusion. Chest x ray: 01/29 diffuse interstitial and bilateral airspaceopacitypersists. Heart remains borderlineenlarged. Patient is rotated towards the right. Interval development of at least a moderate sized LT apicalpneumothoraxestimated at appr 40%. 02/08 Heart mildlyenlarged. Diffuse interstitial and patchy/confluent CHIVO airspace disease, R>L may show slight worsening in the interval. Possible subtle nodularity of the left base is remonstrated. Treatment: The patient's oxygen requirements went up to 11 Lhigh flow nasal cannula Based on this information and the findings, is there an additional diagnosis that is clinically appropriate for this patient? [ ] No additional diagnosis/Not clinically significant [ ] Acute Systolic Heart Failure (reduced EF) [ x ] Acute Diastolic Heart Failure (preserved EF) [ ] Acute Systolic & Diastolic Heart Failure [ ] Other cause of fluid overload, please specify [ ] Unable to determine (Template Last Revised: April 2020) MTDD
== END 2024-03-04 13:54 | disposition hospice, inpatient (51) | DRG 871 ==
LOC: EC 13:12 → 3SCARD 14:41 → 2SICU 01-30 08:09 → 3SCARD 02-05 16:42 → 2SICU 02-09 08:59 → 4SSUR 02-18 07:13
PROVIDERS: ADMIT Internal Medicine; ATTEND Internal Medicine
PROC: 0W9B30Z Drainage of Left Pleural Cavity with Drainage Device, Percutaneous Approach (ICD-10-PCS; 2024-01-30)
PROC: 03HY32Z Insertion of Monitoring Device into Upper Artery, Percutaneous Approach (ICD-10-PCS; principal; 2024-02-10)
PROC: 4A133B1 Monitoring of Arterial Pressure, Peripheral, Percutaneous Approach (ICD-10-PCS; 2024-02-10)
PROC: 4A133J1 Monitoring of Arterial Pulse, Peripheral, Percutaneous Approach (ICD-10-PCS; 2024-02-10)
PROC: 06HY33Z Insertion of Infusion Device into Lower Vein, Percutaneous Approach (ICD-10-PCS; 2024-02-13)
PROC: 3E033XZ Introduction of Vasopressor into Peripheral Vein, Percutaneous Approach (ICD-10-PCS; 2024-02-13)
DX: A41.01 Sepsis due to Methicillin susceptible Staphylococcus aureus (principal); E43 Unspecified severe protein-calorie malnutrition; Z51.5 Encounter for palliative care; Z66 Do not resuscitate; R65.21 Severe sepsis with septic shock; J96.01 Acute respiratory failure with hypoxia; J15.211 Pneumonia due to Methicillin susceptible Staphylococcus aureus; S27.2XXA Traumatic hemopneumothorax, initial encounter; J12.82 Pneumonia due to coronavirus disease 2019; I50.31 Acute diastolic (congestive) heart failure; I96 Gangrene, not elsewhere classified; I48.92 Unspecified atrial flutter; I13.0 Hypertensive heart and chronic kidney disease with heart failure and stage 1 through stage 4 chronic kidney disease, or unspecified chronic kidney disease; I50.32 Chronic diastolic (congestive) heart failure; N17.9 Acute kidney failure, unspecified; I48.19 Other persistent atrial fibrillation; E27.40 Unspecified adrenocortical insufficiency; J44.0 Chronic obstructive pulmonary disease with (acute) lower respiratory infection; E88.A Wasting disease (syndrome) due to underlying condition; D69.6 Thrombocytopenia, unspecified; U07.1 COVID-19; G72.81 Critical illness myopathy; K92.2 Gastrointestinal hemorrhage, unspecified; E87.20 Acidosis, unspecified; J93.82 Other air leak; R18.8 Other ascites; J94.8 Other specified pleural conditions; S27.321A Contusion of lung, unilateral, initial encounter; B37.0 Candidal stomatitis; Z79.01 Long term (current) use of anticoagulants; L89.899 Pressure ulcer of other site, unspecified stage; R62.7 Adult failure to thrive; E83.51 Hypocalcemia; E88.09 Other disorders of plasma-protein metabolism, not elsewhere classified; D50.0 Iron deficiency anemia secondary to blood loss (chronic); Z53.29 Procedure and treatment not carried out because of patient's decision for other reasons; E78.5 Hyperlipidemia, unspecified; R41.841 Cognitive communication deficit; E86.0 Dehydration; E87.6 Hypokalemia; I89.0 Lymphedema, not elsewhere classified; B96.20 Unspecified Escherichia coli [E. coli] as the cause of diseases classified elsewhere; F41.9 Anxiety disorder, unspecified; R26.9 Unspecified abnormalities of gait and mobility; I95.89 Other hypotension; N28.1 Cyst of kidney, acquired; R04.0 Epistaxis; S20.212A Contusion of left front wall of thorax, initial encounter; N18.2 Chronic kidney disease, stage 2 (mild); R91.1 Solitary pulmonary nodule; R45.1 Restlessness and agitation; R54 Age-related physical debility; K59.00 Constipation, unspecified; W19.XXXA Unspecified fall, initial encounter; Z79.899 Other long term (current) drug therapy; Z90.81 Acquired absence of spleen; Z87.820 Personal history of traumatic brain injury; Z82.49 Family history of ischemic heart disease and other diseases of the circulatory system; Z68.24 Body mass index [BMI] 24.0-24.9, adult
CPT/HCPCS: 36410; 36415; 71045; 71046; 71250; 71260; 71275; 74230; 76705; 76937; 80048; 80051; 80053; 80202; 81001; 82310; 82330; 82533; 82565; 82728; 83540; 83550; 83605; 83735; 83880; 84100; 84132; 84134; 84145; 84439; 84443; 84484; 85025; 85027; 85610; 85730; 86140; 86850; 86900; 86901; 86920; 87040; 87070; 87077; 87086; 87186; 87205; 87636; 93005; 93306; 94640; 94760; 96361; 96365; 96366; 96375; 99291

== ENCOUNTER 2024-03-04 13:21 | Inpatient (IN) | payer MEDICAID ==
[2024-03-04] MEDS ORDERED: ONDANSETRON 4 MG/2 ML VIAL IVP PRN (13:40)
[2024-03-04] MEDS ORDERED: ACETAMINOPHEN SUPPOSITORY 650 MG SUPP RECTAL PRN (13:40)
[2024-03-04] MEDS ORDERED: HALOPERIDOL LACTATE 5 MG/ML 1 ML VIAL IM PRN (13:40)
[2024-03-04] MEDS ORDERED: MORPHINE SULFATE 4 MG/ML SYRINGE IV PRN (13:40)
[2024-03-04] MEDS ORDERED: MORPHINE SULFATE 2 MG/ML SYRINGE IV PRN (13:40)
[2024-03-04] MEDS: GLYCOPYRROLATE 0.2 MG/ML 2 ML VIAL IVP PRN (14:22)
[2024-03-04] MEDS: ATROPINE OPHTH SOLN 1% 5ML BTL SUBLINGUAL PRN (14:36)
[2024-03-04] MEDS: SCOPOLAMINE 1 MG/72 HR PATCH TRANSDERM SCH (14:37)
[2024-03-04] MEDS: MORPHINE SULFATE (100 MG/2 ML) 100 MG in SODIUM CHLORIDE 0.9% 100 ML IV SCH (14:37)
[2024-03-04] MEDS: SODIUM CHLORIDE 0.9% 1,000 ML IV SCH (14:46)
--- NOTE | 2024-03-04 16:26 | P.HPIM ---
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 PO HS 08/11/17 01/21/24 History Amiodarone [Cordarone] 200 mg PO BID tab 05/09/19 01/21/24 Rx Apixaban [Eliquis] 2.5 mg PO BID tablet 05/09/19 01/21/24 Rx HYDROcodone/APAP 7.5-325MG [[place] 1 tab PO Q6H PRN 12/21/19 01/21/24 History 7.5-325] allopurinoL [Zyloprim] 100 mg PO DAILY 09/22/20 01/21/24 History traZODone HCL 150 mg PO HS 01/21/24 01/21/24 History Allergies Allergy/AdvReac Type Severity Reaction Status Date / Time No Known Allergies Allergy Verified 01/21/24 14:13 Physical Exam Vitals: Intake and Output 03/04/24 03/04/24 03/04/24 06:59 14:59 22:59 Intake Total 0.085 2.346 Balance 0.085 2.346 Intake: Intake, IV Titration 0.085 2.346 Amount Morphine Sulfate (100 mg/ 0.085 2.346 2 ml) 100 mg In Sodium Chloride 0.9% 100 ml @ 1 MG/HR 1.02 mls/hr IV . Q24H [facility] Rx#:[id number] Other: Weight 70.9 kg
[2024-03-05 11:40] LABS: Glucose,Whole Blood 134 mg/dL (70-110)
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
[2024-03-05 20:06] VITALS: RESP 4
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
== END 2024-03-05 21:39 | disposition expired | DRG 951 ==
LOC: 4SSUR 13:58
PROVIDERS: ADMIT Internal Medicine; ATTEND Internal Medicine
DX: Z51.5 Encounter for palliative care (principal); J96.01 Acute respiratory failure with hypoxia; A41.89 Other specified sepsis; J15.211 Pneumonia due to Methicillin susceptible Staphylococcus aureus; E43 Unspecified severe protein-calorie malnutrition; J12.82 Pneumonia due to coronavirus disease 2019; U07.1 COVID-19; I48.20 Chronic atrial fibrillation, unspecified; R62.7 Adult failure to thrive; Z66 Do not resuscitate; I50.9 Heart failure, unspecified; R91.1 Solitary pulmonary nodule; S20.219A Contusion of unspecified front wall of thorax, initial encounter; G47.9 Sleep disorder, unspecified; F41.9 Anxiety disorder, unspecified; R59.0 Localized enlarged lymph nodes; Z90.81 Acquired absence of spleen; Z87.820 Personal history of traumatic brain injury; Z91.81 History of falling; Z79.01 Long term (current) use of anticoagulants; Z79.899 Other long term (current) drug therapy; Z68.24 Body mass index [BMI] 24.0-24.9, adult; Z86.19 Personal history of other infectious and parasitic diseases